=== PATIENT | female | born 1970 | race Caucasian/White ===

== ENCOUNTER → 2017-03-23 | Outpatient (CLI) | payer OTHER ==
[~2017-03-23] MED LIST: ASPI81TA21 PO; ATOR-26 PO; CHOL100010 PO; CHOLCAP10 PO; CLOP1TAB15 PO; EFFSR150 PO; HALO10TA17 PO; HYDR100C PO; LEVO25TA5 PO; LEVOIUD INT UTER; LISI-729 PO; METO25TA56 PO; NITR0.4S UT; NRN100 PO; QUET1TAB32 PO; QUET1TAB34 PO; RANI150T3 PO; TRAZ100T29 PO
[2017-03-23 14:42] LABS: BASO % 0.3 %; BASO ABS # 0.02 K/uL (0-0.2); COMPLETE YES; EOS % 1.6 %; HEMATOCRIT 42.1 % (37-47); IG% 0.2 %; LYMPH % 31.2 %; LYMPH ABS # 1.94 K/uL (1.2-3.4); MEAN CELL VOLUME 87.7 fL (80-100); MEAN CORPUSCULAR HEMOGLOBIN 30.4 pg (25-34); MEAN CORPUSCULAR HGB CONC 34.7 g/dl (32-36); MEAN PLATELET VOLUME 11.8 fL (7.4-10.4); MONO % 10.5 %; NEUT % 56.2 %; PLATELET COUNT 245 K/uL (130-400); WHITE BLOOD COUNT 6.21 K/uL (4.8-10.8)
[2017-03-23 16:18] LABS: ALT/SGPT 32 U/L (12-78); AST/SGOT 18 U/L (15-37); BLOOD UREA NITROGEN 10 mg/dl (7-18); BUN/CREATININE RATIO 13.1 (10-20); CARBON DIOXIDE 25 mmol/L (21-32); CHLORIDE 110 mmol/L (98-107); CREATININE 0.77 mg/dl (0.60-1.20); GLUCOSE 104 mg/dl (70-99); POTASSIUM 3.9 mmol/L (3.5-5.1); SODIUM 143 mmol/L (136-145)
[2017-03-23 16:37] LABS: ALKALINE PHOSPHATASE 118 U/L (45-117); CHOLESTEROL 141 mg/dl (0-200); CHOLESTEROL/HDL RATIO 3.4; HDL CHOLESTEROL 42 mg/dl; LDL CHOLESTEROL CALCULATED 51 mg/dl; THYROID STIMULATING HORMONE 0.614 uIu/ml (0.300-4.500); TRIGLYCERIDES 240 mg/dl (0-150); VERY LOW DENSITY LIPOPROT CALC 48 mg/dl
== END | disposition home or self-care (01) ==
LOC: C.LAB1850 13:03
PROVIDERS: ATTEND Internal Medicine
DX: I67.82 Cerebral ischemia (principal); E55.9 Vitamin D deficiency, unspecified; E03.9 Hypothyroidism, unspecified; E78.5 Hyperlipidemia, unspecified

== ENCOUNTER → 2017-03-25 | Outpatient (CLI) | payer OTHER ==
--- NOTE | 2017-03-25 09:38 | DIAGNOSTIC IMAGING REPORT ---
LEFT HIP UNILATERAL 2 VIEWS CLINICAL HISTORY: R10.30 Left groin pain COMPARISON: None. DISCUSSION: There are moderate osteophytic changes with superior joint space narrowing. There is a small femoral head osteophyte. There are no acute fractures. No destructive lesions are visualized. IMPRESSION: Moderate osteoarthritic changes. No acute fractures. Electronically signed by: Matty Austin M.D. 03/25/2017 9:37 AM Dictated Date/Time: 03/25/2017 9:35 AM
== END | disposition home or self-care (01) ==
LOC: C.RAD1850 09:22
PROVIDERS: ATTEND Internal Medicine
DX: R10.30 Lower abdominal pain, unspecified (principal); M16.12 Unilateral primary osteoarthritis, left hip

== ENCOUNTER → 2017-03-31 | Outpatient (CLI) | payer OTHER ==
--- NOTE | 2017-03-31 11:38 | DIAGNOSTIC IMAGING REPORT ---
LEFT INGUINAL ULTRASOUND CLINICAL HISTORY: R10.32 Left groin [id number] COMPARISON STUDY: No previous studies for comparison. FINDINGS: Ultrasonographic evaluation the left inguinal region reveals no evidence of hernia. IMPRESSION: No ultrasonographic evidence of a left groin hernia. Electronically signed by: Matty Austin M.D. 03/31/2017 11:37 AM Dictated Date/Time: 03/31/2017 11:36 AM
== END | disposition home or self-care (01) ==
LOC: C.ULTR 10:59
PROVIDERS: ATTEND Internal Medicine
DX: R10.32 Left lower quadrant pain (principal)

== ENCOUNTER 2017-06-08 10:39 | Emergency (ER) | payer OTHER ==
[~2017-06-08] VITALS: Ht 170.2 cm; Wt 97.2 kg
[~2017-06-08 10:39] MED LIST changes: -CHOLCAP10 PO
[2017-06-08 10:47] VITALS: TEMP 36.9; Ht 170.2 cm; Wt 97.2 kg
[2017-06-08] MEDS ORDERED: CHOLCAP10 PO (11:07)
[2017-06-08 11:19] LABS: URINE APPEARANCE CLEAR (CLEAR); URINE BILIRUBIN NEG (NEG); URINE COLOR YELLOW; URINE NITRITE NEG (NEG); URINE PH 6.5 (4.5-7.5); URINE SPECIFIC GRAVITY 1.007 (1.000-1.030); UROBILINOGEN NEG (NEG); ZZUR CULT IF INDIC CLEAN CATCH NO
[2017-06-08 11:22] LABS: MANUAL MICROSCOPIC REQUIRED? NO; REVIEW REQ? NO
[2017-06-08 11:27] LABS: PREG INTERNAL NEGATIVE QC NEG CLEAR BACKGROUND; PREG INTERNAL POSITIVE QC POS CONTROL LINE
[2017-06-08 11:46] LABS: BASO % 0.2 %; BASO ABS # 0.02 K/uL (0-0.2); COMPLETE YES; EOS % 1.4 %; HEMATOCRIT 40.4 % (37-47); IG% 0.3 %; LYMPH % 17.1 %; LYMPH ABS # 1.71 K/uL (1.2-3.4); MEAN CORPUSCULAR HEMOGLOBIN 29.8 pg (25-34); MEAN CORPUSCULAR HGB CONC 33.9 g/dl (32-36); MEAN PLATELET VOLUME 10.7 fL (7.4-10.4); MONO % 7.7 %; NEUT % 73.3 %; PLATELET COUNT 283 K/uL (130-400); RED BLOOD COUNT 4.59 M/uL (4.2-5.4); WHITE BLOOD COUNT 9.98 K/uL (4.8-10.8)
[2017-06-08 11:52] LABS: BENZODIAZEPINE, URINE NEG (NEG); COCAINE,URINE NEG (NEG); PHENCYCLIDINE, URINE NEG (NEG)
[2017-06-08 12:06] LABS: BUN/CREATININE RATIO 11.2 (10-20); CALCIUM 9.2 mg/dl (8.5-10.1); CREATININE 0.81 mg/dl (0.60-1.20); POTASSIUM 3.5 mmol/L (3.5-5.1)
[2017-06-08 12:15] LABS: ACETAMINOPHEN < 2 ug/ml (10-30)
[2017-06-08 12:17] LABS: THYROID STIMULATING HORMONE 1.69 uIu/ml (0.300-4.500)
[2017-06-08 13:36] VITALS: BP 145/99; PULSE 86; O2SAT 95
--- NOTE | 2017-06-08 17:10 | EMERGENCY ROOM VISIT NOTE ---
History Report prepared by Catarina: Alice Thompson Under the Supervision of: Dr. Rick Barr M.D. First contact with patient: 11:21 Chief Complaint: ANXIETY Stated Complaint: OVER ANXIOUS History of Present Illness The patient is a 47 year old female who presents to the Emergency Room with complaints of worsening anxiety for the past couple of weeks. The patient has a history of anxiety and other mental health issues. She sees a psychiatrist and is on multiple medications for her anxiety. The patient states that she recently started Benztropine. She states that she used to be prescribed Ativan but is no longer prescribed that drug. She has been taking her medications as prescribed and took her usual medications this morning.. The patient states that she is feeling "over-anxious." Her anxiety is starting to overwhelm her, and she feels that she can't stay still. She denies SI or HI. She did not contact her psychiatrist with her symptoms because she states that she can never get through to their office. She is requesting Ativan. Source of History: patient Onset: a couple of weeks ago Position: other (global) Quality: other (anxiety) Timing: worsening Note: Pt denies SI and HI. Review of Systems See HPI for pertinent positives & negatives. A total of 10 systems reviewed and were otherwise negative. Past Medical & Surgical Medical Problems: (1) Cellulitis (2) Chronic back pain (3) Esophageal Reflux (4) Hyperlipidemia Nec/Nos (5) MO (myocardial infarction) (6) Pure Hypercholesterolem (7) TIA Family History FH: pancreatic cancer FATHER Social History Smoking Status: Current Every Day Smoker Alcohol Use: heavy Drug Use: none Marital Status: single Occupation Status: unemployed Current/Historical Medications Scheduled Aspirin Enteric Coated (Ecotrin Or Generic), 81 MG PO DAILY Atorvastatin (Lipitor), 80 MG PO HS Cholecalciferol (D 5000), 5,000 UNITS PO DAILY Clopidogrel (Plavix), 75 MG PO QAM Gabapentin (Gabapentin), 100 MG PO TID Haloperidol (Haldol), 10 MG PO BID Hydroxyzine Pamoate (Vistaril), 200 MG PO BID Levonorgestrel (Iud) (Mirena), 1 UNIT INT UTER UD Levothyroxine Sodium (Levothyroxine Sodium), 25 MCG PO QAM Lisinopril (Zestril), 5 MG PO QAM Metoprolol Tartrate (Lopressor) (Lopressor), 12.5 MG PO BID Nitroglycerin (Nitrostat), 0.4 MG UT PRN Ranitidine Hcl (Zantac), 150 MG PO BID Trazodone Hcl (Trazodone), 100 MG PO HS Venlafaxine Hcl (Effexor Extended Rel), 150 MG PO DAILY Allergies Coded Allergies: No Known Allergies (Verified , 06/08/17) Physical Exam Vital Signs Date Time Temp Pulse Resp B/P (MAP) Pulse Ox O2 Delivery O2 Flow Rate FiO2 06/08/17 13:36 86 145/99 95 06/08/17 12:32 73 158/94 99 Room Air 06/08/17 10:47 36.9 76 20 143/89 96 Room Air Physical Exam Constitutional: Vital signs reviewed. Eyes: Pupils are equal round reactive to light. Conjunctiva are noninjected. ENT: Pharynx is clear without erythema or exudate. Mucous membranes are moist. Neck supple without meningeal signs. Respiratory: Clear to auscultation bilaterally. Breath sounds are equal bilaterally. Cardiovascular: Regular rate and rhythm. No rubs or gallops. GI: Soft, nondistended and nontender. Bowel sounds are present. Musculoskeletal: No peripheral edema. No lower extremity tenderness. Integumentary: No cyanosis. Neurological: The patient is awake and alert. No focal deficits. Psychiatric: Flat affect. Not tearful or manic. Medical Decision & Procedures Laboratory Results 06/08/17 11:22 Red Blood Count 4.59, Mean Corpuscular Volume 88.0, Mean Corpuscular Hemoglobin 29.8, Mean Corpuscular Hemoglobin Concent 33.9, Mean Platelet Volume 10.7, Neutrophils (%) (Auto) 73.3, Lymphocytes (%) (Auto) 17.1, Monocytes (%) (Auto) 7.7, Eosinophils (%) (Auto) 1.4, Basophils (%) (Auto) 0.2, Neutrophils # (Auto) 7.31, Lymphocytes # (Auto) 1.71, Monocytes # (Auto) 0.77, Eosinophils # (Auto) 0.14, Basophils # (Auto) 0.02 06/08/17 11:22 Test 06/08/17 11:05 06/08/17 11:22 Urine Color YELLOW Urine Appearance CLEAR (CLEAR) Urine pH 6.5 (4.5-7.5) Urine Specific [place] 1.007 (1.000-1.030) Urine Protein NEG (NEG) Urine Glucose (UA) NEG (NEG) Urine Ketones NEG (NEG) Urine Occult Blood NEG (NEG) Urine Nitrite NEG (NEG) Urine Bilirubin NEG (NEG) Urine Urobilinogen NEG (NEG) Urine Leukocyte Esterase NEG (NEG) Urine Test NEG (NEG) Urine Opiates Screen NEG (NEG) Urine Methadone, Qualitative NEG (NEG) Urine Barbiturates NEG (NEG) Urine Phencyclidine (PCP) Level NEG (NEG) Ur Amphetamine/Methamphetamine NEG (NEG) MDMA (Ecstasy) Screen POS (NEG) Urine Benzodiazepines Screen NEG (NEG) Urine Cocaine Metabolite NEG (NEG) Urine Marijuana (THC) NEG (NEG) White Blood Count 9.98 K/uL (4.8-10.8) Red Blood Count 4.59 M/uL (4.2-5.4) Hemoglobin 13.7 g/dL (12.0-16.0) Hematocrit 40.4 % (37-47) Mean Corpuscular Volume 88.0 fL (80-100) Mean Corpuscular Hemoglobin 29.8 pg (25-34) Mean Corpuscular Hemoglobin Concent 33.9 g/dl (32-36) Platelet Count 283 K/uL (130-400) Mean Platelet Volume 10.7 fL (7.4-10.4) Neutrophils (%) (Auto) 73.3 % Lymphocytes (%) (Auto) 17.1 % Monocytes (%) (Auto) 7.7 % Eosinophils (%) (Auto) 1.4 % Basophils (%) (Auto) 0.2 % Neutrophils # (Auto) 7.31 K/uL (1.4-6.5) Lymphocytes # (Auto) 1.71 K/uL (1.2-3.4) Monocytes # (Auto) 0.77 K/uL (0.11-0.59) Eosinophils # (Auto) 0.14 K/uL (0-0.5) Basophils # (Auto) 0.02 K/uL (0-0.2) RDW Standard Deviation 47.5 fL (36.4-46.3) RDW Coefficient of Variation 14.7 % (11.5-14.5) Immature Granulocyte % (Auto) 0.3 % Immature Granulocyte # (Auto) 0.03 K/uL (0.00-0.02) Anion Gap 6.0 mmol/L (3-11) Est Creatinine Clear Calc Drug Dose 102.8 ml/min Estimated GFR () 100.2 Estimated GFR (Non- 86.5 BUN/Creatinine Ratio 11.2 (10-20) Calcium Level 9.2 mg/dl (8.5-10.1) Total Bilirubin 0.7 mg/dl (0.2-1) Aspartate Amino Transf (AST/SGOT) 28 U/L (15-37) Alanine Aminotransferase (ALT/SGPT) 42 U/L (12-78) Alkaline Phosphatase 136 U/L (45-117) Total Protein 7.5 gm/dl (6.4-8.2) Albumin 3.7 gm/dl (3.4-5.0) Globulin 3.8 gm/dl (2.5-4.0) Albumin/Globulin Ratio 1.0 (0.9-2) Thyroid Stimulating Hormone (TSH) 1.690 uIu/ml (0.300-4.500) Salicylates Level 2.5 mg/dl (2.8-20) Acetaminophen Level < 2 ug/ml (10-30) Ethyl Alcohol mg/dL < 3.0 mg/dl (0-3) Laboratory results as reviewed by me. ED Course 1121: The patient was evaluated in room A5. A complete history and physical exam was performed. 1223: I reviewed the lab test results with the patient. The family independence case manager is going to talk to her therapist about further outpatient treatment and medications, which I discussed with the patient as well. She expressed understanding and verbalized agreement. The patient will be discharged home. 1240: The family independence case manager left a message with the patient's therapist. 1321: I spoke with Dr. Arias, the patient's therapist at [facility]. We discussed the patient's case. She agreed with the treatment plan. She does not want the patient to be placed on any new medications, especially benzodiazepines, as she has a history of inhalation abuse. She will follow-up in the office. Medical Decision This is a 47-year-old female who presents with anxiety. I did perform a limited focused review of portions of the patient's old chart on the electronic medical record. The patient has had no recent pertinent visits to this hospital. I did evaluate the patient as noted above. The patient is presenting with worsening anxiety. She does not appear overly anxious while in the emergency department. She does have a flat affect. She does state that Ativan seemed to help her. I did review the patient's blood work as noted in the electronic medical record. I did discuss the patient with her psychiatrist at [facility]. She recommended we not prescribe her Ativan or any benzodiazepines at this time. She recommended outpatient follow up for the patient. She does state that the patient has a history of inhalational abuse and developed psychosis and required Haldol because of this abuse in the past. The patient was informed of the plan and discharged in good condition. [place] Drug Monitoring Program Search Results: patient reviewed within database Drug Monitoring Findings: Pt could not be found in PDMP. Medication Reconcilliation Current Medication List: was personally reviewed by me Blood Pressure Screening Patient's blood pressure: Elevated blood pressure Blood pressure disposition: Referred to PCP Consults Time Called: 1240 Consulting Physician: Dr. Manuel Returned Call: [address] Arias, the patient's therapist at [facility]. We discussed the patient's case. She agreed with the treatment plan. She does not want the patient to be placed on any new medications, especially benzodiazepines, as she has a history of inhalation abuse. She will follow-up in the office. Impression Primary Impression: Anxiety Scribe Attestation The scribe's documentation has been prepared under my direct and personally reviewed by me in its entirety. I confirm that the note above accurately reflects all work, treatment, procedures, and medical decision making performed by me. Departure Information Dispostion Home / Self-Care Referrals No Doctor, Assigned (PCP) RV. Robb MD Forms HOME CARE DOCUMENTATION FORM, IMPORTANT VISIT INFORMATION Patient Instructions Anxiety Disorder, My [facility] Additional Instructions You have been examined and treated today on an emergency basis only. This is not a substitute for, or an effort to provide, complete comprehensive medical care. It is impossible to recognize and treat all injuries or illnesses in a single emergency department visit. It is therefore important that you follow up closely with your physician. Call as soon as possible for an appointment. Return for worsening symptoms or if you develop thoughts of hurting yourself or others or any other concerning symptoms.
== END 2017-06-08 13:41 | disposition home or self-care (01) ==
LOC: C.EDB 10:41 → C.EDA 13:41
DX: F41.9 Anxiety disorder, unspecified (principal); K21.9 Gastro-esophageal reflux disease without esophagitis; E78.5 Hyperlipidemia, unspecified; I25.2 Old myocardial infarction; E78.00 Pure hypercholesterolemia, unspecified; Z86.73 Personal history of transient ischemic attack (TIA), and cerebral infarction without residual deficits; Z80.9 Family history of malignant neoplasm, unspecified; F17.210 Nicotine dependence, cigarettes, uncomplicated; Z79.82 Long term (current) use of aspirin; Z79.02 Long term (current) use of antithrombotics/antiplatelets; Z79.899 Other long term (current) drug therapy

== ENCOUNTER → 2017-06-28 | Outpatient (CLI) | payer OTHER ==
[~2017-06-28] MED LIST changes: -CHOL100010 PO; +CHOLCAP10 PO; -QUET1TAB32 PO; -QUET1TAB34 PO
== END | disposition home or self-care (01) ==
LOC: C.PAPS 13:34
PROVIDERS: ATTEND Physician Assistant
DX: Z12.4 Encounter for screening for malignant neoplasm of cervix (principal); Z11.51 Encounter for screening for human papillomavirus (HPV); Z97.5 Presence of (intrauterine) contraceptive device

== ENCOUNTER → 2017-07-04 | Outpatient (CLI) | payer OTHER ==
[2017-07-04 11:18] LABS: PREG INTERNAL NEGATIVE QC NEG CLEAR BACKGROUND; PREG INTERNAL POSITIVE QC POS CONTROL LINE
[2017-07-07 02:02] LABS: CHLAMYDIA TRACH RNA*** NOT DETECTED (NOT DETECTED); GC (NEIS GONORRHOEAE)RNA** NOT DETECTED (NOT DETECTED)
== END | disposition home or self-care (01) ==
LOC: C.LAB 10:07
PROVIDERS: ATTEND Physician Assistant
DX: Z30.430 Encounter for insertion of intrauterine contraceptive device (principal)

== ENCOUNTER → 2017-08-02 | Outpatient (CLI) | payer OTHER ==
--- NOTE | 2017-08-03 07:56 | MAMMOGRAPHY REPORT ---
BILATERAL DIGITAL SCREENING MAMMOGRAM TOMOSYNTHESIS WITH CAD: 08/02/2017 CLINICAL HISTORY: Routine screening examination. TECHNIQUE: Breast tomosynthesis in addition to standard 2D mammography was performed. Current study was also evaluated with a Computer Aided Detection (CAD) system. COMPARISON: Comparison is made to exam dated: 03/28/2013 mammogram - [facility]. BREAST COMPOSITION: The tissue of both breasts is almost entirely fatty. There have been involution al changes comparing to the prior available mammograms. FINDINGS: No suspicious mass, architectural distortion or cluster of suspicious microcalcifications is seen. IMPRESSION: ACR BI-RADS CATEGORY 1: NEGATIVE There is no mammographic evidence of malignancy. A 1 year screening mammogram is recommended. The pa tient will receive written notification of the results. Approximately 10% of breast cancers are not detected with mammography. A negative mammographic report should not delay biopsy if a clinically suggestive mass is present. Jennifer English M.D. ay/:08/02/2017 15:44:06 Refrigeration Plant Operator: Katie THIBODEAUX(Al)(Zach), [facility] letter sent: Normal 1/2 BI-RADS Code: ACR BI-RADS Category 1: Negative
== END | disposition home or self-care (01) ==
LOC: C.MAMM 10:56
PROVIDERS: ATTEND Physician Assistant
DX: Z12.31 Encounter for screening mammogram for malignant neoplasm of breast (principal)

== ENCOUNTER 2019-01-08 17:39 | Observation (INO) ==
[2019-01-08 18:28] LABS: Basophils # (auto) 0.02 K/uL (0-0.2); Basophils % (auto) 0.3 %; Eosinophils # (auto) 0.14 K/uL (0-0.5); Eosinophils % (auto) 1.9 %; Hematocrit (blood only) 43.9 % (37-47); Hemoglobin 15.2 g/dL (12.0-16.0); Immature Granulocytes # (auto) 0.01 K/uL (0.00-0.02); Immature Granulocytes % (auto) 0.1 %; Lymphocytes % (auto) 45.3 %; Mean Corpuscular Hgb Conc 34.6 g/dL (32-36); Mean Corpuscular Volume 82.5 fL (80-100); Mean Platelet Volume 10.3 fL (7.4-10.4); Monocytes # (auto) 0.62 K/uL (0.11-0.59); Monocytes % (auto) 8.5 %; Neutrophils % (auto) 43.9 %; Platelet Count 331 K/uL (130-400); RDW Coefficient of Variation 16.4 % (11.5-14.5); RDW Standard Deviation 49.7 fL (36.4-46.3); Red Blood Count 5.32 M/uL (4.2-5.4); White Blood Count 7.29 K/uL (4.8-10.8)
--- NOTE | 2019-01-08 18:29 | XRay Report ---
SINGLE VIEW CHEST CLINICAL HISTORY: Atypical chest pain. FINDINGS: An AP, portable, semierect chest radiograph is compared to study dated 07/12/2016. Correlati on is made with chest CT dated 02/19/2010. The examination is degraded by portable technique, apical l ordotic positioning, and patient rotation. The cardiomediastinal silhouette is unremarkable. Calcifi ed mediastinal and hilar lymph nodes are again noted. The lungs and pleural spaces are clear. No pneu mothorax is seen. The bony thorax is grossly intact. IMPRESSION: No active disease in the chest. Electronically signed by: Roman Longo M.D. 01/08/2019 6:27 PM
[2019-01-08 18:37] LABS: Prothrombin Time 10.6 Seconds (9.0-12.0)
--- NOTE | 2019-01-08 18:46 | CT Scan Report ---
CT SCAN OF THE BRAIN WITHOUT IV CONTRAST CLINICAL HISTORY: Transient right-sided weakness. COMPARISON STUDY: CT of the brain dated 06/24/2014. TECHNIQUE: Unenhanced axial CT scan of the brain is performed from the vertex to the skull base. A d ose lowering technique was utilized adhering to the principles of ALARA. CT DOSE: 537.48 mGy.cm FINDINGS: Brain parenchyma: The brain parenchyma is normal in appearance. There is no hemorrhage, mass effect, or evidence of acute territorial ischemia by CT criteria. [place]-white matter differentiation is preser anisa. No extra-axial fluid collection is seen. Ventricles, sulci, cisterns: Normal in configuration. Intracranial vasculature: The visualized intracranial vasculature at the skull base is normal in appe arance. Calvarium: Unremarkable. Sinuses and mastoids: The visualized paranasal sinuses are clear. The mastoid air cells are well pneu matized. Orbits: The bony orbits are grossly intact. IMPRESSION: No acute intracranial abnormality. Electronically signed by: Roman Longo M.D. 01/08/2019 6:45 PM
[2019-01-08 18:57] LABS: Alanine Aminotransferase 26 U/L (12-78); Albumin Level 3.4 gm/dl (3.4-5.0); Aspartate Aminotransferase 16 U/L (15-37); Blood Urea Nitrogen 10 mg/dl (7-18); Calcium 8.4 mg/dl (8.5-10.1); Carbon Dioxide 29 mmol/L (21-32); Chloride 111 mmol/L (98-107); Creatinine Clr Calc Pharmacy 96.6 ml/min; Est GFR (Non-African American) 87.2; Glucose 91 mg/dl (70-99); Potassium 4.3 mmol/L (3.5-5.1); Sodium 145 mmol/L (136-145)
[2019-01-08] MEDS ORDERED: KETOROLAC TROMETHAMINE 15 MG/ML VIAL IV STA (19:01)
[2019-01-08 19:02] LABS: Albumin Globulin Ratio 0.9 (0.9-2); Alkaline Phosphatase 109 U/L (45-117); Bilirubin,Total 0.3 mg/dl (0.2-1); Globulin 3.7 gm/dl (2.5-4.0); Total Protein 7.1 gm/dl (6.4-8.2); Troponin I < 0.015 ng/ml (0-0.045)
[2019-01-08] MEDS ORDERED: MoRPHine SULFATE 2 MG/ML CARP IV STA (19:20)
--- NOTE | 2019-01-08 19:24 | Emergency Department Note ---
Entered by Dat Calhoun acting as a scribe for Kapil Ramirez M.D. History of Present Illness General Chief complaint: Cardiac Assessment Stated complaint: CHEST PAIN Source: patient History of Present Illness Onset (ago): hour(s) (a couple) Location: chest and right (leg and arm) Pain Consistency: + constant Maximum Pain Intensity: 10 Current Pain Intensity: 4 Quality: + other (central chest pain) Associated symptoms: + weakness (right arm and leg for 45 minutes, now resolved); no headaches and no nausea/vomiting Treatments prior to arrival: aspirin (and nitro) The patient is a 48 year old female who presents to the Emergency Room with complaints of constant pain in the center of her chest beginning a couple of hours ago. The patient reports that the pain woke her from her sleep and was 10/10 at the onset. She reports that she experienced weakness of her right arm and right leg for about 45 minutes that is currently resolved. She notes that she still had the weakness upon EMS arrival. The patient states that she took 5 nitro prior to arrival, and she was given aspirin by EMS. She reports that her pain is currently improved to 4/10. She states that she temporarily had difficulty speaking from the right side of the mouth but denies difficulty swallowing. She also denies nausea or headaches. She notes that she was asymptomatic yesterday. The patient reports a history of several strokes and heart attacks, most recently 3-4 years ago. She states that her most recent stroke affected her left side. The patient reports that she decided to stop taking all of her medications for the past six months, including aspirin and blood thinners. She also states that she has not seen her PCP for at least six months. She states that she regularly smokes. 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 and A total of 10 systems reviewed and were otherwise negative Physical Exam Vital Signs Vital Signs - 24 hr 01/08/19 17:50 01/08/19 20:11 01/08/19 20:46 Temperature 36.9 C Temperature Source Oral Sepsis Recent Fever Within 48 Hours No Sepsis Action Taken by Nursing No Action Required Pulse Rate 90 Pulse Rate [Right Finger] 84 Pulse Rhythm Regular Pulse Strength Normal Respiratory Rate 17 14 Respiratory Effort / Characteristics Non-Labored Non-Labored Spontaneous Respiratory Depth Normal Normal Respiratory Pattern Regular Regular Rapid/Shallow Tachypnea Blood Pressure 109/59 L Blood Pressure [Right Arm] 134/88 Blood Pressure Mean 75 Blood Pressure Mean [Right Arm] 103 Blood Pressure Position Lying Blood Pressure Position [Right Arm] Lying Pulse Oximetry 96 97 Oxygen Delivery Method Room Air Room Air 01/08/19 21:00 01/08/19 21:12 Temperature Temperature Source Sepsis Recent Fever Within 48 Hours Sepsis Action Taken by Nursing Pulse Rate 87 Pulse Rate [Right Finger] 85 Pulse Rhythm Pulse Strength Respiratory Rate 19 19 Respiratory Effort / Characteristics Respiratory Depth Respiratory Pattern Blood Pressure 131/83 Blood Pressure [Right Arm] 131/83 Blood Pressure Mean Blood Pressure Mean [Right Arm] 99 Blood Pressure Position Blood Pressure Position [Right Arm] Pulse Oximetry 99 98 Oxygen Delivery Method Room Air GENERAL: Awake, alert, in no distress HENT: Normocephalic, atraumatic. EYES: Normal conjunctiva. Sclera non-icteric. NECK: Supple. No nuchal rigidity. RESPIRATORY: Clear to auscultation. No wheezes. Normal respiratory effort. CARDIAC: Normal rate. Normal rhythm. Extremities warm and well perfused. GI: Soft, non-distended. No tenderness to palpation. No rebound or guarding. No masses. RECTAL: Deferred. MUSCULOSKELETAL: Atraumatic. Chest examination reveals no tenderness. There is no CVA tenderness to palpation. LOWER EXTREMITIES: Calves are equal size bilaterally and non-tender. No edema NEURO: Normal sensorium. No sensory or motor deficits noted. No facial droop. No slurred speech. Cranial nerves II-XII grossly intact. SKIN: Warm and dry. No rash or jaundice noted. Course 1751: The patient was evaluated in room C10, and a complete history and physical examination were performed. 193: I consulted Dr. Champion [facility] Hospitalist. The patient will be reevaluated for hospitalization. Consultations Consultation #1: I consulted Dr. Champion [facility] Hospitalist. The patient will be reevaluated for hospitalization. Time: 19:30 Administered Medications Discontinued Medications Ketorolac Tromethamine (Toradol) 15 mg IV NOW STA Stop: 01/08/19 19:02 Last Admin: 01/08/19 19:08 Dose: 15 mg Documented by: [id number] Morphine Sulfate (Morphine Sulfate) 2 mg IV NOW STA Stop: 01/08/19 19:21 Last Admin: 01/08/19 19:33 Dose: 2 mg Documented by: [id number] Medical Decision Making Differential Diagnosis Differential diagnosis: Etiologies such as metabolic, infection, hypo/hyperglycemia, electrolyte abnormalities, intracerebral event, toxicologic, neurologic, cardiac ischemia, aortic dissection, pulmonary embolism, pneumonia, pneumothorax, musculoskeletal, infections, pericarditis, myocarditis, esophageal rupture, gastrointestinal, as well as others were entertained. Medical Records Attestation: I reviewed the patient's medical records. Home Medications Current Medication List: was personally reviewed by me Laboratory Data Attestation: I reviewed the patient's lab results. Result diagrams: 01/08/19 17:57 01/08/19 17:57 Lab Results 01/08/19 01/08/19 01/08/19 Range/Units 17:57 17:57 17:57 WBC 7.29 (4.8-10.8) K/uL RBC 5.32 (4.2-5.4) M/uL Hgb 15.2 (12.0-16.0) g/dL Hct 43.9 (37-47) % MCV 82.5 (80-100) fL MCH 28.6 (25-34) pg MCHC 34.6 (32-36) g/dL RDW Std Deviation 49.7 H (36.4-46.3) fL RDW Coeff of [place]oke 16.4 H (11.5-14.5) % Plt Count 331 (130-400) K/uL MPV 10.3 (7.4-10.4) fL Immature Gran % (Auto) 0.1 % Neut % (Auto) 43.9 % Lymph % (Auto) 45.3 % [place] % (Auto) 8.5 % Eos % (Auto) 1.9 % Baso % (Auto) 0.3 % Immature Gran # (Auto) 0.01 (0.00-0.02) K/uL Neut # (Auto) 3.20 (1.4-6.5) K/uL Lymph # (Auto) 3.30 (1.2-3.4) K/uL [place] # (Auto) 0.62 H (0.11-0.59) K/uL Eos # (Auto) 0.14 (0-0.5) K/uL Baso # (Auto) 0.02 (0-0.2) K/uL PT 10.6 (9.0-12.0) Seconds INR 1.0 (0.9-1.1) Sodium 145 (136-145) mmol/L Potassium 4.3 (3.5-5.1) mmol/L Chloride 111 H (98-107) mmol/L Carbon Dioxide 29 (21-32) mmol/L Anion Gap 5.0 (3-11) BUN 10 (7-18) mg/dl Creatinine 0.80 (0.6-1.2) mg/dl Est Cr Clr Drug Dosing 96.6 ml/min Est GFR ( Amer) 101.0 Est GFR (Non-Af Amer) 87.2 BUN/Creatinine Ratio 13.0 (10-20) Glucose 91 (70-99) mg/dl Calcium 8.4 L (8.5-10.1) mg/dl Total Bilirubin 0.3 (0.2-1) mg/dl AST 16 (15-37) U/L ALT 26 (12-78) U/L Alkaline Phosphatase 109 (45-117) U/L POC Troponin I (0-0.045) ng/ml Troponin I < 0.015 (0-0.045) ng/ml Total Protein 7.1 (6.4-8.2) gm/dl Albumin 3.4 (3.4-5.0) gm/dl Globulin 3.7 (2.5-4.0) gm/dl Albumin/Globulin Ratio 0.9 (0.9-2) Lipase 113 (73-393) U/L Ethyl Alcohol mg/dL (0-3) mg/dl 01/08/19 01/08/19 Range/Units 18:19 21:09 WBC (4.8-10.8) K/uL RBC (4.2-5.4) M/uL Hgb (12.0-16.0) g/dL Hct (37-47) % MCV (80-100) fL MCH (25-34) pg MCHC (32-36) g/dL RDW Std Deviation (36.4-46.3) fL RDW Coeff of Brooke (11.5-14.5) % Plt Count (130-400) K/uL MPV (7.4-10.4) fL Immature Gran % (Auto) % Neut % (Auto) % Lymph % (Auto) % [place] % (Auto) % Eos % (Auto) % Baso % (Auto) % Immature Gran # (Auto) (0.00-0.02) K/uL Neut # (Auto) (1.4-6.5) K/uL Lymph # (Auto) (1.2-3.4) K/uL [place] # (Auto) (0.11-0.59) K/uL Eos # (Auto) (0-0.5) K/uL Baso # (Auto) (0-0.2) K/uL PT (9.0-12.0) Seconds INR (0.9-1.1) Sodium (136-145) mmol/L Potassium (3.5-5.1) mmol/L Chloride (98-107) mmol/L Carbon Dioxide (21-32) mmol/L Anion Gap (3-11) BUN (7-18) mg/dl Creatinine (0.6-1.2) mg/dl Est Cr Clr Drug Dosing ml/min Est GFR ( Amer) Est GFR (Non-Af Amer) BUN/Creatinine Ratio (10-20) Glucose (70-99) mg/dl Calcium (8.5-10.1) mg/dl Total Bilirubin (0.2-1) mg/dl AST (15-37) U/L ALT (12-78) U/L Alkaline Phosphatase (45-117) U/L POC Troponin I < 0.03 (0-0.045) ng/ml Troponin I (0-0.045) ng/ml Total Protein (6.4-8.2) gm/dl Albumin (3.4-5.0) gm/dl Globulin (2.5-4.0) gm/dl Albumin/Globulin Ratio (0.9-2) Lipase (73-393) U/L Ethyl Alcohol mg/dL 124.4 H (0-3) mg/dl Imaging Data Radiologist's Impression: Radiology results as stated below per my review and the radiologist's interpretation: SINGLE VIEW CHEST CLINICAL HISTORY: Atypical chest pain. FINDINGS: An AP, portable, semierect chest radiograph is compared to study dated 07/12/2016. Correlation is made with chest CT dated 02/19/2010. The examination is degraded by portable technique, apical lordotic positioning, and patient rotation. The cardiomediastinal silhouette is unremarkable. Calcified mediastinal and hilar lymph nodes are again noted. The lungs and pleural spaces are clear. No pneumothorax is seen. The bony thorax is grossly intact. IMPRESSION: No active disease in the chest. Electronically signed by: Roman Longo M.D. 01/08/2019 6:[address] SCAN OF THE BRAIN WITHOUT IV CONTRAST CLINICAL HISTORY: Transient right-sided weakness. COMPARISON STUDY: CT of the brain dated 06/24/2014. TECHNIQUE: Unenhanced axial CT scan of the brain is performed from the vertex to the skull base. A dose lowering technique was utilized adhering to the principles of ALARA. CT DOSE: 537.48 mGy.cm FINDINGS: Brain parenchyma: The brain parenchyma is normal in appearance. There is no hemorrhage, mass effect, or evidence of acute territorial ischemia by CT criteria. [place]-white matter differentiation is preserved. No extra-axial fluid collection is seen. Ventricles, sulci, cisterns: Normal in configuration. Intracranial vasculature: The visualized intracranial vasculature at the skull base is normal in appearance. Calvarium: Unremarkable. Sinuses and mastoids: The visualized paranasal sinuses are clear. The mastoid air cells are well pneumatized. Orbits: The bony orbits are grossly intact. IMPRESSION: No acute intracranial abnormality. Electronically signed by: Roman Longo M.D. 01/08/2019 6:45 PM ECG Data Attestation: I personally reviewed and interpreted this ECG as follows: Indication: chest pain Rate (beats per minute): 100 Rhythm: normal sinus Findings: + other (prolonged QT interval); no PVC, no ST depression and no ST elevation Blood Pressure Blood Pressure Findings: Normal blood pressure Blood Pressure Disposition: did not require urgent referral MDM Narrative 48-year-old female with history of anxiety, cardiac disease, hyperlipidemia, TIA presenting today complaining of waking up 2 hours hours prior to arrival with severe central chest pain. States took 3 nitroglycerin with no improvement. Nonexertional. States after that she developed 45 minutes of right-sided numbness and weakness in along with facial droop. Resolved by the time of EMS arrival. States she has a history of stroke and cardiac disease before. Offered medication for 6 months per 2 additional nitroglycerin en route with EMS. No change with this. Although does right chest pain now at 4 out of 10. No trauma reported or recent illnesses. States pain is similar to previous and describes as a pressure. Benign abdomen. Chest x-ray unremarkable. I doubt this is acute PE. Cardiac her troponin is negative. Formal troponin is nega tive as well. EKG without acute changes. Patient's neurological symptoms appear to have resolved at this point but head CT was complete with acute findings. Does have a history of TIA and this could be recurrence. Has been off antiplatelet agents for 6 months could be contributing. Given her si gnificant cardiac history neurological history along with her presentation believe observation overnight is warranted. Patient is still having pain and did not improve with morphine. Hospitalist contacted. Impression & Plan Chest pain, Weakness Discharge Plan Visit Data *Final* Discharge Date/Time: 01/08/19 21:12 Chief Complaint: Cardiac Assessment Stated Complaint: CHEST PAIN ED Provider: Kapil Ramirez Discharge Problem: Chest pain, Weakness Patient Disposition: Admitted As Inpatient Discharge Instructions Interventions: ED Discharge Assessment Last Done: 01/08/19 21:12 Discharge Problem: Chest pain Qualifiers: Chest pain type: unspecified Qualified Code(s): R07.9 - Chest pain, unspecified The scribe's documentation has been prepared under my direction and personally reviewed by me in its entirety. I confirm that the note above accurately reflects all work, treatment, procedures, and medical decision making performed by me.
--- NOTE | 2019-01-08 21:46 | History & Physical Report ---
Date of Service January 08, 2019 Assessment & Plan (1) TIA (transient ischemic attack): History of TIA/previously left-sided weakness that resolved/today's presentation is right-sided weakness and decreased sensation resolved-- CT of head negative for acute event. Follow-up CTA head and neck are normal. MRI brain without contrast is normal. Stroke without TPA order set has been ordered and will follow. Complete echo ordered for the morning. Consult speech, PT, OT. Consult neurology. Symptoms may be due to alcohol use/withdrawal. Present on Admission?: Yes (2) History of stroke: As above. Present on Admission?: Yes (3) Medical non-compliance: Present on Admission?: Yes (4) Alcohol abuse: Place on [facility] protocol. Order alcohol level and urine drug screen. Give banana bag tonight. Place on thiamine 100 mg p.o. every morning, and folic acid 1 mg p.o. every morning. Present on Admission?: Yes (5) Coronary artery disease, occlusive: CAD/history of NSTEMI/hypertension/medical noncompliance-- Patient's previous medication list: Aspirin 81 mg daily, clopidogrel 75 mg every morning, lisinopril 5 mg every morning, metoprolol tartrate 12.5 mg p.o. twice daily, nitroglycerin sublingual as needed. Present on Admission?: Yes (6) Hyperlipidemia LDL goal <70: Patient previously had been on atorvastatin 80 mg p.o. at bedtime. We will check a fasting lipid panel, and reinstitute medications as needed Present on Admission?: Yes (7) GERD (gastroesophageal reflux disease): Patient previously had been on ranitidine 150 mg p.o. twice daily. We will reinstitute as needed once she is cleared speech screening Present on Admission?: Yes (8) Hypothyroidism (acquired): Patient previously had been on levothyroxine sodium 25 mcg every morning. We will add a TSH to current labs and treat as needed. Present on Admission?: Yes (9) Anxiety and depression: Anxiety with depression/medical noncompliance-- Previous medication list includes venlafaxine ER 150 mg p.o. daily, trazodone 100 mg p.o. at bedtime, Seroquel 50 mg in the morning and 150 mg at bedtime, Vistaril 20 mg p.o. twice daily, Haldol 10 mg p.o. twice daily, and gabapentin 100 mg p.o. 3 times daily. Present on Admission?: Yes History of Present Illness Chief Complaint: The patient presents to the emergency department with complaint of chest discomfort and right-sided decreased sensation and weakness after waking up from an afternoon nap at 230 this afternoon. Primary Care Provider: Juan Carlos Martinez MD The patient is a 48-year-old female with a past medical history including diabetes mellitus, cerebrovascular disease, coronary artery disease, STEMI, alcohol abuse and medical noncompliance, who presents to the emergency department with complaint of epigastric to chest pain and right-sided decreased sensation and weakness that occurred around 2:30 in the afternoon after awakening. She does report that she began drinking again, and her last drink was at 3:00 in the morning. She reports that she was awake to have her child off to school, and then went back to sleep. She has had no recent injuries to report. She has not been on any of her medications for 6 months. Allergies Allergy/AdvReac Type Severity Reaction Status Date / Time No Known Allergies Allergy Verified 01/08/19 19:37 Home Medications Home Medications Medication Instructions Recorded Confirmed Type No Known Home Medications 01/08/19 01/08/19 History Past Med/Surg History Medical History History of stroke STEMI (ST elevation myocardial infarction) (Acute) Medical non-compliance (Acute) Family History Other Cancer Diabetes Hypertension Social History Preferred Language: Iraqi Communication Ability: Effective Healthcare Administration Internship Required: No Beliefs That Will Affect Care: None Current Living Situation: Family Current Living Situation Comment: with son Other Information That Helps Us Care for You: No Feels Safe at Home: Yes Safety Concerns: Feels Safe At This Time Smoking Status: Current every day smoker Hx Alcohol Use: Yes Hx Substance Use: No Review of Systems The patient denies palpitations, shortness of breath, dyspnea on exertion, cough, lower extremity swelling, sore throat, fevers, chills, sweats, weight change, fatigue, nausea, vomiting, diarrhea , constipation, pelvic pain, blood in urine or stool, dysuria, urinary frequency or urgency, lightheadedness, dizziness, headache, memory loss, loss of consciousness, rash, abnormal bruising or bleeding, imbalance, generalized arthralgias or myalgias, back or neck pain, or night sweats. The review of systems is otherwise negative other than for that already noted above, and at least 10 systems have been reviewed. Physical Exam Vital Signs (Past 24 Hours): Last Vital Signs Temp 36.9 C 01/08/19 17:50 Pulse 87 01/08/19 21:12 Resp 19 01/08/19 21:12 BP 131/83 01/08/19 21:12 Pulse Ox 98 01/08/19 21:12 Physical Exam: The patient is awake, alert and oriented 3, mildly lethargic and smells of alcohol, normocephalic and atraumatic, lying in bed and in no acute distress. HEENT--PERRL, EOMI, mucous membranes and oropharynx dry. Neck--supple. No JVD. No bruits. Thyroid normal, trachea midline, no adenopathy. Heart--normal S1 and S2. No murmurs, rubs or gallops. Lungs--clear bilaterally, no respiratory distress, no accessory muscle use. Abdomen--normal bowel sounds and soft. Nontender. Nondistended. Extremities--no cyanosis or clubbing. No edema. There are good distal pulses b/l. Dermatologic--normal skin turgor, normal color, no abnormal lymph nodes, no rash. Neurologic--cranial nerves II through XII grossly intact. Motor strength 5 out of 5 upper and lower extremities bilaterally and equal. Rheumatologic--normal range of motion. Psychiatric--normal affect. Results & Data Laboratory Results Laboratory Results WBC 7.29 K/uL (4.8-10.8) 01/08/19 17:57 RBC 5.32 M/uL (4.2-5.4) 01/08/19 17:57 Hgb 15.2 g/dL (12.0-16.0) 01/08/19 17:57 Hct 43.9 % (37-47) 01/08/19 17:57 MCV 82.5 fL (80-100) 01/08/19 17:57 MCH 28.6 pg (25-34) 01/08/19 17:57 MCHC 34.6 g/dL (32-36) 01/08/19 17:57 RDW Std Deviation 49.7 fL (36.4-46.3) H 01/08/19 17:57 RDW Coeff of Brooke 16.4 % (11.5-14.5) H 01/08/19 17:57 Plt Count 331 K/uL (130-400) 01/08/19 17:57 MPV 10.3 fL (7.4-10.4) 01/08/19 17:57 Immature Gran % (Auto) 0.1 % 01/08/19 17:57 Neut % (Auto) 43.9 % 01/08/19 17:57 Lymph % (Auto) 45.3 % 01/08/19 17:57 [place] % (Auto) 8.5 % 01/08/19 17:57 Eos % (Auto) 1.9 % 01/08/19 17:57 Baso % (Auto) 0.3 % 01/08/19 17:57 Immature Gran # (Auto) 0.01 K/uL (0.00-0.02) 01/08/19 17:57 Neut # (Auto) 3.20 K/uL (1.4-6.5) 01/08/19 17:57 Lymph # (Auto) 3.30 K/uL (1.2-3.4) 01/08/19 17:57 [place] # (Auto) 0.62 K/uL (0.11-0.59) H 01/08/19 17:57 Eos # (Auto) 0.14 K/uL (0-0.5) 01/08/19 17:57 Baso # (Auto) 0.02 K/uL (0-0.2) 01/08/19 17:57 PT 10.6 Seconds (9.0-12.0) 01/08/19 17:57 INR 1.0 (0.9-1.1) 01/08/19 17:57 Sodium 145 mmol/L (136-145) 01/08/19 17:57 Potassium 4.3 mmol/L (3.5-5.1) 01/08/19 17:57 Chloride 111 mmol/L (98-107) H 01/08/19 17:57 Carbon Dioxide 29 mmol/L (21-32) 01/08/19 17:57 Anion Gap 5.0 (3-11) 01/08/19 17:57 BUN 10 mg/dl (7-18) 01/08/19 17:57 Creatinine 0.80 mg/dl (0.6-1.2) 01/08/19 17:57 Est Cr Clr Drug Dosing 96.6 ml/min 01/08/19 17:57 Est GFR ( Amer) 101.0 01/08/19 17:57 Est GFR (Non-Af Amer) 87.2 01/08/19 17:57 BUN/Creatinine Ratio 13.0 (10-20) 01/08/19 17:57 Glucose 91 mg/dl (70-99) 01/08/19 17:57 Calcium 8.4 mg/dl (8.5-10.1) L 01/08/19 17:57 Total Bilirubin 0.3 mg/dl (0.2-1) 01/08/19 17:57 AST 16 U/L (15-37) 01/08/19 17:57 ALT 26 U/L (12-78) 01/08/19 17:57 Alkaline Phosphatase 109 U/L (45-117) 01/08/19 17:57 POC Troponin I < 0.03 ng/ml (0-0.045) 01/08/19 18:19 Troponin I 0.020 ng/ml (0-0.045) 01/08/19 21:58 Total Protein 7.1 gm/dl (6.4-8.2) 01/08/19 17:57 Albumin 3.4 gm/dl (3.4-5.0) 01/08/19 17:57 Globulin 3.7 gm/dl (2.5-4.0) 01/08/19 17:57 Albumin/Globulin Ratio 0.9 (0.9-2) 01/08/19 17:57 Lipase 113 U/L (73-393) 01/08/19 17:57 Folate 3.59 ng/ml (>5.38) L 01/08/19 21:58 Ethyl Alcohol mg/dL 124.4 mg/dl (0-3) H 01/08/19 21:09 Diagnostic Findings [facility], [place] [phone] CT Scan Report Patient: THADDEUS TIRADO Date: 01/08/19 MR#: [id number]: [address] Acct ID:[id number]: Date: 1970[facility] Zip: [place] [address] Age: 48Location: ED Sex: F Room/Bed: Att Phy: Diagnosis: CHEST PAIN Sarah Phy: RV. Clarisse, MDService Date: 01/08/19 Fam Phy: Justin Mary Jr, MDInterpreting Phy: Roman Longo MD Admit Phy: Ordering Phy: Kapil Ramirez M.D. cc: ~ CT SCAN OF THE BRAIN WITHOUT IV CONTRAST CLINICAL HISTORY: Transient right-sided weakness. COMPARISON STUDY: CT of the brain dated 06/24/2014. TECHNIQUE: Unenhanced axial CT scan of the brain is performed from the vertex to the skull base. A dose lowering technique was utilized adhering to the principles of ALARA. CT DOSE: 537.48 mGy.cm FINDINGS: Brain parenchyma: The brain parenchyma is normal in appearance. There is no hemorrhage, mass effect, or evidence of acute territorial ischemia by CT criteria. [place]-white matter differentiation is preserved. No extra-axial fluid collection is seen. Ventricles, sulci, cisterns: Normal in configuration. Intracranial vasculature: The visualized intracranial vasculature at the skull base is normal in appearance. Calvarium: Unremarkable. Sinuses and mastoids: The visualized paranasal sinuses are clear. The mastoid air cells are well pneumatized. Orbits: The bony orbits are grossly intact. IMPRESSION: No acute intracranial abnormality. Electronically signed by: Roman Longo M.D. 01/08/2019 6:45 PM Dictated: 01/08/19 184 Transcribed: 01/08/19 1843 [facility], [place] [phone] XRay Report Patient: THADDEUS TIRADO Date: 01/08/19 MR#: [id number]: [address] Acct ID:[id number]: Date: 1970 Zip: [place] [address] Age: 48Location: ED Sex: F Room/Bed: Att Phy: Diagnosis: CHEST PAIN Sarah Phy: Clarisse, RV., MDService Date: 01/08/19 Fam Phy: Justin Mary Jr, MDInterpreting Phy: Roman Longo MD Admit Phy: Ordering Phy: Kapil Ramirez M.D. cc: ~ SINGLE VIEW CHEST CLINICAL HISTORY: Atypical chest pain. FINDINGS: An AP, portable, semierect chest radiograph is compared to study dated 07/12/2016. Correlation is made with chest CT dated 02/19/2010. The examination is degraded by portable technique, apical lordotic positioning, and patient rotation. The cardiomediastinal silhouette is unremarkable. Calcified mediastinal and hilar lymph nodes are again noted. The lungs and pleural spaces are clear. No pneumothorax is seen. The bony thorax is grossly intact. IMPRESSION: No active disease in the chest. Electronically signed by: Roman Longo M.D. 01/08/2019 6:27 PM Dictated: 01/08/191826 Transcribed: 01/08/191826 [place], [place] [phone] CT Scan Report Patient: THADDEUS TIRADO Date: 01/08/19 MR#: [id number]: [address] ROS[address] Acct ID:[id number]: Date: 1970[facility] Zip: [place] [address] Age: 48Location: 2E Sex: F Room/Bed: [facility] Att Phy: Long Champion M.D.Diagnosis: RIGHT SIDE WEAKNESS Sarah Phy: Clarisse, RV., MDService Date: 01/08/19 Fam Phy: Justin Mary Jr, MDInterpreting Phy: Roman Longo MD Admit Phy: Long Champion M.D. Ordering Phy: Long Champion M.D. cc: ~ CT ANGIOGRAM OF THE BRAIN; CT ANGIOGRAM OF THE NECK CLINICAL HISTORY: Right-sided weakness. COMPARISON STUDY: Unenhanced CT of the brain performed the same day 01/08/2019. MR angiogram of the head and neck dated 02/06/2015. Thyroid ultrasound dated 05/17/2016. TECHNIQUE: Following the IV administration of 115 of Optiray 320, CT angiogram of the head and neck was performed from the aortic arch to the vertex. Images are reviewed in the axial, sagittal, and coronal planes. 3-D MIPS images are created and assessed. IV contrast was administered without complication. All measurements were calculated based on NASCET criteria. A dose lowering techni que was utilized adhering to the principles of ALARA. CT DOSE: 483.93 mGy.cm FINDINGS: Brain parenchyma: The brain parenchyma is normal in appearance. There is no hemorrhage, mass effect, or evidence of acute territorial ischemia by CT criteria. There is no evidence of enhancing mass lesion on the angiogram phase images. The ventricles, sulci, and cisterns are normal in configuration. [place]-white matter differentiation is preserved. No extra-axial fluid collection is seen. Thoracic aorta: Visualized portions of the thoracic aorta are normal in caliber. The aortic arch demonstrates standard 3-vessel anatomy. Right carotid arterial system: The right common carotid artery is widely patent, as are the right internal and external carotid arteries. Left carotid arterial system: The left common carotid artery is widely patent, as are the left internal and external carotid arteries. Vertebral arteries: The vertebral arteries are widely patent bilaterally and codominant. Subclavian arteries: Widely patent bilaterally. Intracranial vasculature: The internal carotid arteries are patent at the skull base, as are the anterior and middle cerebral arteries bilaterally. The vertebrobasilar system and posterior cerebral arteries are widely patent. The vertebral arteries are codominant. There is no aneurysm, high-grade stenosis, or focal vessel cut off seen throughout the intracranial circulation. Jugular veins: Widely patent bilaterally. Dural sinuses: Patent. Lung apices: Partially visualized upper lobe lung parenchyma appears clear. Soft tissues: The visualized pharyngeal soft tissues are normal in appearance noting angiographic phase technique. The oropharyngeal airway appears widely patent. The thyroid gland is enlarged and heterogeneous. Low-attenuation thyroid nodules measure up to 13 mm. These were assessed on previous thyroid ultrasounds. The salivary glands are normal in appearance. No cervical lymphadenopathy is seen. Skeletal structures: The calvarium appears intact. The cervical spine is within normal limits. Sinuses and mastoids: The paranasal sinuses are clear. The mastoid air cells are well pneumatized. IMPRESSION: 1. There is no hemorrhage, mass effect, or evidence of acute territorial ischemia by CT criteria noting angiographic technique. 2. Unremarkable CT angiogram of the brain. 3. Unremarkable CT angiogram of the neck. Electronically signed by: Roman Longo M.D. 01/08/2019 10:49 PM Dictated: 01/08/192241 Transcribed: 01/08/192241 [place], [place] [phone] CT Scan Report Patient: THADDEUS TIRADO Date: 01/08/19 MR#: [id number]: [address] Acct ID:[id number]: Date: [address] Zip: [place] [address] Age: 48Location: 2E Sex: F Room/Bed: [facility] Att Phy: Long Champion M.D.Diagnosis: RIGHT SIDE WEAKNESS Sarah Phy: RV. Clarisse, MDService Date: 01/08/19 Fam Phy: Justin Mary Jr, MDInterpreting Phy: Roman Longo MD Admit Phy: Long Champion M.D. Ordering Phy: Long Champion M.D. cc: ~ CT ANGIOGRAM OF THE BRAIN; CT ANGIOGRAM OF THE NECK CLINICAL HISTORY: Right-sided weakness. COMPARISON STUDY: Unenhanced CT of the brain performed the same day 01/08/2019. MR angiogram of the head and neck dated 02/06/2015. Thyroid ultrasound dated 05/17/2016. TECHNIQUE: Following the IV administration of 115 of Optiray 320, CT angiogram of the head and neck was performed from the aortic arch to the vertex. Images are reviewed in the axial, sagittal, and coronal planes. 3-D MIPS images are created and assessed. IV contrast was administered without complication. All measurements were calculated based on NASCET criteria. A dose lowering technique was utilized adhering to the principles of ALARA. CT DOSE: 483.93 mGy.cm FINDINGS: Brain parenchyma: The brain parenchyma is normal in appearance. There is no hemorrhage, mass effect, or evidence of acute territorial ischemia by CT criteria. There is no evidence of enhancing mass lesion on the angiogram phase images. The ventricles, sulci, and cisterns are normal in configuration. [place]- white matter differentiation is preserved. No extra-axial fluid collection is seen. Thoracic aorta: Visualized portions of the thoracic aorta are normal in caliber. The aortic arch demonstrates standard 3-vessel anatomy. Right carotid arterial system: The right common carotid artery is widely patent, as are the right internal and external carotid arteries. Left carotid arterial system: The left common carotid artery is widely patent, as are the left internal and external carotid arteries. Vertebral arteries: The vertebral arteries are widely patent bilaterally and codominant. Subclavian arteries: Widely patent bilaterally. Intracranial vasculature: The internal carotid arteries are patent at the skull base, as are the anterior and middle cerebral arteries bilaterally. The vertebrobasilar system and posterior cerebral arteries are widely patent. The vertebral arteries are codominant. There is no aneurysm, high-grade stenosis, or focal vessel cut off seen throughout the intracranial circulation. Jugular veins: Widely patent bilaterally. Dural sinuses: Patent. Lung apices: Partially visualized upper lobe lung parenchyma appears clear. Soft tissues: The visualized pharyngeal soft tissues are normal in appearance noting angiographic phase technique. The oropharyngeal airway appears widely patent. The thyroid gland is enlarged and heterogeneous. Low-attenuation thyroid nodules measure up to 13 mm. These were assessed on previous thyroid ultrasounds. The salivary glands are normal in appearance. No cervical lymphadenopathy is seen. Skeletal structures: The calvarium appears intact. The cervical spine is within normal limits. Sinuses and mastoids: The paranasal sinuses are clear. The mastoid air cells are well pneumatized. IMPRESSION: 1. There is no hemorrhage, mass effect, or evidence of acute territorial ischemia by CT criteria noting angiographic technique. 2. Unremarkable CT angiogram of the brain. 3. Unremarkable CT angiogram of the neck. Electronically signed by: Roman Longo M.D. 01/08/2019 10:49 PM Dictated: 01/08/192241 Transcribed: 01/08/192241 Code Status & VTE Plan Code Status Full code VTE Prophylaxis Plan VTE Prophylaxis will be ordered: Yes
[2019-01-08] MEDS ORDERED: ALUMINUM/MAGNESIUM SUSP 30 ML UDC PO PRN (21:47)
[2019-01-08] MEDS ORDERED: ONDANSETRON INJ 2 MG/ML 2 ML VIAL IV PRN (21:47)
[2019-01-08] MEDS ORDERED: LORazepam 2 MG/4 ML VIAL IV PRN (21:47)
[2019-01-08] MEDS ORDERED: MULTI-VITAMIN INFUSION 10 ML, THIAMINE HCL 100 MG, FOLIC ACID 1 MG in SODIUM CHLORIDE 0... IV SCH (21:47)
[2019-01-08] MEDS ORDERED: NITROGLYCERIN SL 0.4 MG/TAB TAB SL PRN (21:47)
[2019-01-08] MEDS ORDERED: LORazepam 1 MG/2 ML VIAL IV PRN (21:47)
[2019-01-08] MEDS ORDERED: ACETAMINOPHEN 325 MG TAB PO PRN (21:47)
[2019-01-08] MEDS ORDERED: ATIVAN IV ALCOHOL WITHDRAWL IV SCH (21:47)
[2019-01-08] MEDS ORDERED: LORazepam 3 MG/6 ML VIAL IV PRN (21:47)
[2019-01-08] MEDS ORDERED: POLYETHYLENE (MIRALAX) 17 GM PACK PO PRN (21:47)
[2019-01-08] MEDS ORDERED: MAGNESIUM HYDROXIDE SUSP 30 ML UDC PO PRN (21:47)
[2019-01-08] MEDS ORDERED: PHARMACIST DISCHARGE MED REC CONSULT PRN (21:47)
--- NOTE | 2019-01-08 22:51 | CT Scan Report ---
CT ANGIOGRAM OF THE BRAIN; CT ANGIOGRAM OF THE NECK CLINICAL HISTORY: Right-sided weakness. COMPARISON STUDY: Unenhanced CT of the brain performed the same day 01/08/2019. MR angiogram of the he ad and neck dated 02/06/2015. Thyroid ultrasound dated 05/17/2016. TECHNIQUE: Following the IV administration of 115 of Optiray 320, CT angiogram of the head and neck w as performed from the aortic arch to the vertex. Images are reviewed in the axial, sagittal, and sherwin nal planes. 3-D MIPS images are created and assessed. IV contrast was administered without complicati on. All measurements were calculated based on NASCET criteria. A dose lowering technique was utilize d adhering to the principles of ALARA. CT DOSE: 483.93 mGy.cm FINDINGS: Brain parenchyma: The brain parenchyma is normal in appearance. There is no hemorrhage, mass effect, or evidence of acute territorial ischemia by CT criteria. There is no evidence of enhancing mass lesi on on the angiogram phase images. The ventricles, sulci, and cisterns are normal in configuration. [place] ay-white matter differentiation is preserved. No extra-axial fluid collection is seen. Thoracic aorta: Visualized portions of the thoracic aorta are normal in caliber. The aortic arch demo nstrates standard 3-vessel anatomy. Right carotid arterial system: The right common carotid artery is widely patent, as are the right int ernal and external carotid arteries. Left carotid arterial system: The left common carotid artery is widely patent, as are the left internal controls analyst al and external carotid arteries. Vertebral arteries: The vertebral arteries are widely patent bilaterally and codominant. Subclavian arteries: Widely patent bilaterally. Intracranial vasculature: The internal carotid arteries are patent at the skull base, as are the ante rior and middle cerebral arteries bilaterally. The vertebrobasilar system and posterior cerebral billy jason are widely patent. The vertebral arteries are codominant. There is no aneurysm, high-grade steno sis, or focal vessel cut off seen throughout the intracranial circulation. Jugular veins: Widely patent bilaterally. Dural sinuses: Patent. Lung apices: Partially visualized upper lobe lung parenchyma appears clear. Soft tissues: The visualized pharyngeal soft tissues are normal in appearance noting angiographic pha se technique. The oropharyngeal airway appears widely patent. The thyroid gland is enlarged and heter ogeneous. Low-attenuation thyroid nodules measure up to 13 mm. These were assessed on previous thyroi d ultrasounds. The salivary glands are normal in appearance. No cervical lymphadenopathy is seen. Skeletal structures: The calvarium appears intact. The cervical spine is within normal limits. Sinuses and mastoids: The paranasal sinuses are clear. The mastoid air cells are well pneumatized. IMPRESSION: 1. There is no hemorrhage, mass effect, or evidence of acute territorial ischemia by CT criteria noti ng angiographic technique. 2. Unremarkable CT angiogram of the brain. 3. Unremarkable CT angiogram of the neck. Electronically signed by: Roman Longo M.D. 01/08/2019 10:49 PM
[2019-01-08] MEDS ORDERED: OPTIRAY 320 125ml IV PRN (22:52)
[2019-01-08] MEDS: HEPARIN SOD 5,000 UNIT/0.5 ML VIAL SQ SCH (23:58)
[2019-01-08] MEDS: THIAMINE HCL 100 MG TAB PO SCH (23:59)
[2019-01-09 05:48] LABS: Basophils # (auto) 0.04 K/uL (0-0.2); Basophils % (auto) 0.5 %; Eosinophils # (auto) 0.21 K/uL (0-0.5); Eosinophils % (auto) 2.8 %; Hematocrit (blood only) 38.1 % (37-47); Hemoglobin 13.3 g/dL (12.0-16.0); Immature Granulocytes # (auto) 0.01 K/uL (0.00-0.02); Immature Granulocytes % (auto) 0.1 %; Lymphocytes # (auto) 3.21 K/uL (1.2-3.4); Lymphocytes % (auto) 43.1 %; Mean Corpuscular Hgb Conc 34.9 g/dL (32-36); Mean Corpuscular Volume 82.5 fL (80-100); Mean Platelet Volume 10.4 fL (7.4-10.4); Monocytes # (auto) 0.59 K/uL (0.11-0.59); Monocytes % (auto) 7.9 %; Neutrophils # (auto) 3.39 K/uL (1.4-6.5); Neutrophils % (auto) 45.6 %; Platelet Count 273 K/uL (130-400); RDW Coefficient of Variation 16.4 % (11.5-14.5); RDW Standard Deviation 50.1 fL (36.4-46.3); Red Blood Count 4.62 M/uL (4.2-5.4); White Blood Count 7.45 K/uL (4.8-10.8)
[2019-01-09 06:05] LABS: Estimated Average Glucose 117 mg/dl; Hemoglobin A1C 5.7 % (4.5-5.6)
[2019-01-09 06:05] LABS: Prothrombin Time 10.3 Seconds (9.0-12.0)
[2019-01-09 06:25] LABS: BUN Creatinine Ratio 21.4 (10-20); Calcium 7.7 mg/dl (8.5-10.1); Creatinine Clr Calc Pharmacy 130.8 ml/min; Est GFR (African American) 125.6; Est GFR (Non-African American) 108.4; Potassium 3.7 mmol/L (3.5-5.1)
[2019-01-09 06:36] LABS: Troponin I 0.022 ng/ml (0-0.045)
[2019-01-09 06:48] LABS: T4 Free Thyroxine 0.76 ng/dl (0.8-1.6)
--- NOTE | 2019-01-09 07:14 | Magnetic Resonance Report ---
MRI OF THE BRAIN WITHOUT CONTRAST CLINICAL HISTORY: Right-sided weakness and numbness. COMPARISON STUDY: MRI of the brain November 25, 2015. Head CT and CTA of the head January 08, 2019. TECHNIQUE: Utilizing a 1.5 Julia magnet and dedicated coil, multiplanar, multiecho imaging of the bra in was performed without IV contrast. FINDINGS: There are no foci of restricted diffusion to suggest acute infarct. No acute intracranial h emorrhage, midline shift or mass effect is present. Ventricular system is normal. Basilar cisterns ar e patent. There are no extra-axial collections. Flow-voids for the major intracranial vessels are pre sent. No intracranial masses identified on this unenhanced exam. There is minimal sinus mucosal thick ening. A few small white matter T2 hyperintense foci are unchanged since MRI of November 25, 2015. Th e appearance of the brain is unchanged. IMPRESSION: 1. No acute intracranial findings. 2. No change in appearance of the brain since MRI November 25, 2015. Electronically signed by: Jason Boucher M.D. 01/09/2019 7:13 AM
[2019-01-09] MEDS: HEPARIN SOD 5,000 UNIT/0.5 ML VIAL SQ SCH (07:43)
[2019-01-09] MEDS: THIAMINE HCL 100 MG TAB PO SCH (07:44)
--- NOTE | 2019-01-09 08:49 | Neurology Consultation ---
Date of Consultation January 09, 2019 Assessment & Plan (1) TIA (transient ischemic attack): Patient had a 45 minute episode January 08 of right face, arm, and leg weakness and numbness with some dysarthria , which then resolved and has not recurred. On neurologic examination today she has no focal neurologic signs, meningeal signs, or encephalopathy. This event is consistent with a transient ischemic attack in the left middle cerebral artery territory distribution. MRI of the brain showed no actual stroke. There were minimal small vessel ischemic changes present and unchanged from her previous MRI of 2015. Patient was on 81 milligram aspirin and 75 milligram clopidogrel up until 6 m onths ago when she discontinued these and all other medication. Risk factors for stroke include ongoing cigarette smoking (although she has cut back over time), hypertension, dyslipidemia, and alcohol abuse. (2) Anxiety and depression: Patient has a long-standing diagnosis of schizoaffective disorder, depressive type as well as anxiety. She was on multiple medications as listed in the history of present illness but stopped every 1 of these medications about 6 months ago. Now her mood is worse and she is feeling depressed. I do not get a sense on the interview today that she is having a significant thought disorder. I note her significant weight loss over short period of time recently. This could be due to excessive drinking without adequate nourishment but is likely secondary to her depression and being off medication that gave her weight gain. (3) Alcohol abuse: Patient has a history of alcohol and substance abuse. She was doing very well with no significant substance abuse that she admits to and was not drinking much alcohol when over the last month or 2 she started drinking more. This teena lly picked up over the last week. This is likely due to her mood being worse off medication. (4) Medical non-compliance: This is 1 of her main problems in that we are not going to help her if she refuses to take medication or follow-up visits with her appropriate clinicians. Recommendations: 1. Continue 81 milligram aspirin tablet plus 75 milligrams clopidogrel for 3 weeks and then discontinue the aspirin keeping clopidogrel alone. There is no neurologic data to suggest that neurologically she is any better off on both than 1 alone after 3 weeks, and there is data that this combination long-term will increase bleeding risk. 2. Restart antihypertensive keeping blood pressure approximately at a mean arterial pressure of 95-100. 3. Discontinue all cigarette smoking. 4. Discontinue all alcohol usage. 5. Awaiting echocardiogram results. 6. Restart Synthroid at previous dose. 7. Multiple vitamin daily including B vitamins (folate , B12, thiamine, etc). 8. Encourage compliance with medication and follow-up visits. 9. Consider psychiatric consultation. She needs to be on something but not perhaps as much as she was on before she stopped all of her medication. I have no further neurologic testing or treatment recommendations to make otherwise at this time and would see her for follow-up as an outpatient. Overall, I spent a total of 80 minutes with this case including review of records, review of MRI films, direct evaluation the patient at bedside, and discussion of the case with the patient, clinical staff, and Dr. Carey, including differential diagnosis and treatment options. Greater than 50 percent of this visit was spent in direct [id number] time with the patient, at 50 minutes. History of Present Illness Reason for Consultation: Year old, who I was asked at the request of Dr. Champion, for neurologic evaluation regarding acute neurologic deficits, stroke versus TIA Requesting Physician: Dr. Champion Attending Physician: Long Champion MD History of Present Illness This patient apparently has a longstanding history of coronary artery disease, hypertension, dyslipidemia, and psychiatric issues including schizoaffective disorder, depressive type and anxiety. She had MRI in 2013 requiring coronary stents. She had several TIA events in 2010, 2011 and then again in early 2014. She was on aspirin and Plavix. She saw Dr. Navas the 1st time December 20, 2014 who felt that the patient probably had a TIA but anxiety attack could not be excluded. MRI of the brain at that time showed a few scattered tiny white matter spots of an old nature, at least 1 being new from 2011. She last saw Dr. Navas January 15, 2016. She was dealing with chronic low back pain and right frontal headaches. At the time she was on topiramate but this was discontinued sometime later. She was stable otherwise from a neurologic standpoint. In November of 2015, EMG and nerve conduction studies of the lower extremities were unremarkable without polyneuropathy and there may have been some very slight lumbosacral radiculopathy of an acute nature (poorly localizable). An MRI of the lumbar spine in January of 2016 showed a mild L4-5 disc bulge to the right and no other significant changes. She was lost to follow-up neurologically. Patient has been following Psychiatry at [facility]. She saw Jelena Brar PA-C on September 16, 2017 (which is the last note I can find from them) and was diagnosed with schizoaffective disorder, depressive type and anxiety. At that time she was on venlafaxine 150 milligrams a day, Haldol 10 milligrams twice a day, G and tone 20 milligrams twice a day, trazodone 150 milligrams at bedtime, and benztropine 0.5 milligrams twice a day. She was also getting Vistaril and Ativan some. She felt drugged and overmedicated on this regimen. In July of 2016, she Mary Cabrera, pulverizer tender, who prescribed Synthroid. She was followed by Dr. Ochoa as her primary care she last saw in April of 2017. Patient apparently stopped every 1 of her medications about 6 months ago or so. She was just "tired of taking everything". Since this time, she has been getting worse. Her mood is been poor over the last 2 months with mood swings. Although she has cut her cigarette smoking down to about a pack per week, she started recently drinking alcohol again. She thinks this is because of her mood. She started drinking about one 32 ounce can of Monae Light beer per day, but over the last week she has been up to 3 of these 32 ounce cans. On January 06 and she felt stressed. She went to sleep at 0300 on January 08. She had been drinking prior whole evening and night. She woke up at 1630 on January 08 with severe chest pain (10/10) and noticed that her right arm, right leg, and right face were numb and tingly and she was very weak in the arm and leg. The she felt that her speech was a little slurred but was thinking appropriately. The weakness and numbness lasted about 45 minutes then resolved. By the time she got to the emergency room she was still having some chest pain. She arrived to the emergency room on January 08 at 1750 with a temperature 36.9, pulse of 90 and regular, respiratory rate 17, blood pressure 109/59, and O2 saturation 96 percent. Neurologic examination was nonfocal and she had no encephalopathy or meningeal signs. CT scan of the head was unremarkable Chest x-ray was unremarkable CBC and Chem profile were unremarkable. Folate was low and TSH was elevated at 5.7. T4 was low. Alcohol level was elevated at 124. She was not . CT angiography of the head and neck were unremarkable without any significant stenoses or vascular anomalies. MRI of the brain showed no acute stroke. It showed no change from November of 2015. There were mild, nonspecific, scattered, old small vessel ischemic changes the (again unchanged). Overnight and this morning she still has little bit of chest pressure but she has no headache or pain otherwise. Her mood is good and she does not feel shaky. She has no incontinence of urine, weakness, numbness, or speech problems. Allergies Allergy/AdvReac Type Severity Reaction Status Date / Time No Known Allergies Allergy Verified 01/08/19 19:37 Home Medications Home Medications Medication Instructions Recorded Confirmed Type No Known Home Medications 01/08/19 01/08/19 History Patient History Medical History History of stroke STEMI (ST elevation myocardial infarction) (Acute) Medical non-compliance (Acute) Schizoaffective disorder, depressive type (Chronic) Surgical History H/O heart artery stent Social History Preferred Language: Canadian Communication Ability: Effective Software Systems Architect Required: No Beliefs That Will Affect Care: None Current Living Situation: Family Current Living Situation Comment: with son current occupational status: previously employed 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 Feels Safe at Home: Yes Safety Concerns: Feels Safe At This Time Smoking Status: Current every day smoker Hx Alcohol Use: Yes Hx Substance Use: No Review of Systems Constitutional: + weight loss (Has lost 45 pounds without dieting over the last 6 months or so.); no fever and no fatigue Eyes: no diplopia, no eye pain and no worsening vision Ear, Nose, Mouth, Throat: no ear pain, no tinnitus, no hearing loss and no dysphagia Respiratory: no cough and no dyspnea Cardiovascular: + chest pain; no dyspnea and no palpitations Gastrointestinal: no abdominal pain, no nausea and no vomiting Genitourinary (Female): no dysuria, no urinary frequency and no urinary incontinence Musculoskeletal: + back pain; no neck pain, no radicular pain, no myalgia, no muscle weakness and no muscle atrophy Integumentary: no rash and no lesions Neurologic: no gait abnormality, no falls, no localized weakness, no generalized weakness, no tingling, no numbness, no tremor(s), no abnormal movements, no dizziness, no headache(s), no abnormal speech, no behavioral changes, no confusion and no memory loss Psychiatric: + depression; no abnormal sleep pattern, no anxiety, no difficulty concentrating, no confusion and no hallucinations Endocrine: no fatigue and no flushing Hematologic / Lymphatic: no easy bleeding and no easy bruising Allergy / Immunological: no urticaria Physical Exam Vital Signs (Past 24 Hours): Last Vital Signs Temp 36.8 C 01/09/19 03:51 Pulse 76 01/09/19 03:51 Resp 17 01/09/19 03:51 BP 106/53 L 01/09/19 03:51 Pulse Ox 98 01/09/19 03:51 Physical Exam: The patient is right-handed. The patient is awake, alert, and attentive. Speech is normal without any aphasia or dysarthria. Mentation and thought processes are intact, with full orientation and normal fund of knowledge. Attention and concentration are n ormal. Mood and affect are normal and appropriate. General appearance and grooming are normal. Short and long-term memory are intact. The discs are sharp with positive venous pulsations bilaterally. There are no exudates, hemorrhages, or blood vessel changes seen. Pupils are 4 mm bilaterally and reactive to light. Extraocular eye muscles are intact without nystagmus. Visual acuity and visual davis seem normal grossly to confrontation. There are no deficits to sensation in the face in all 3 distributions of the fifth cranial nerve bilaterally. Corneal reflexes are positive bilaterally. Faci al strength and symmetry was normal bilaterally. Hearing seems intact grossly to voice and finger rub bilaterally. Palate moves well without asymmetry. There is normal sternocleidomastoid and trapezius (shoulder shrug) strength bilaterally. Tongue is midline with good strength bilaterally. Neck has a full range of motion without discomfort. There are no cervical bruits bilaterally. There are no cranial or ocular bruits. Heart is without murmur. There is a regular rhythm and rate. Cervical and thoracic spine are nontender to palpation. Patient has some mild diffuse tenderness over the lumbar spine both paraspinals and spinous processes without spasm. Gait is narrow based, with good arm swing, turns, and stance. Balance is normal eyes open or closed. With outstretched arms there is no drift. There are no resting, postural, or action tremors. There is no ataxia with finger to nose testing. There is good facility in the hands. No other abnormal involuntary movements are noted. Motor strength is 5/5 diffusely in the arms bilaterally including deltoids, biceps, triceps, brachioradialis, wrist flexors and extensors, operations lieutenant, and intrinsic hand muscles. Motor strength is 5/5 diffusely in the legs bilaterally including hip flexors, quadriceps, hamstrings, gastrocnemius, tibialis anterior, tibialis posterior, and Peroneii muscles bilaterally. Toe extensors are normal and there is good bulk in the extensor digitorum brevis muscles bilaterally. The limbs have good tone without rigidity or spasticity. There is no atrophy noted in the muscles. Muscle bulk is normal, there is no tenderness to palpation, no myotonia to percussion, and no fasciculations seen. Vibratory and position sense testing is normal bilaterally as well. There is normal sensation to temperature. Reflexes are 2/4 in the biceps, triceps, brachioradialis, quadriceps, and Achilles tendons bilaterally. Toes are downgoing with plantar stimulation bilaterally. Peripheral pulses are present and of normal quality distally in all 4 limbs. There is no peripheral edema noted in the limbs. Results & Data Diagnostic Findings [place], [place] [phone] Magnetic Resonance Report Patient: THADDEUS TIRADO Date: 01/08/19 MR#: [id number]: [address] Acct ID:[id number]: Date: 1970City Zip: [place] [address] Age: 48Location: 2E Sex: F Room/Bed: [facility] Att Phy: Long Champion M.D.Diagnosis: RIGHT SIDE WEAKNESS Sarah Phy: RV. Clarisse, MDService Date: 01/08/19 Fam Phy: Justin Mary Jr, MDInterpreting Phy: Jason Boucher MD Admit Phy: Long Champion M.D. Ordering Phy: Long Champion M.D. cc: ~ MRI OF THE BRAIN WITHOUT CONTRAST CLINICAL HISTORY: Right-sided weakness and numbness. COMPARISON STUDY: MRI of the brain November 25, 2015. Head CT and CTA of the head January 08, 2019. TECHNIQUE: Utilizing a 1.5 Julia magnet and dedicated coil, multiplanar, multiecho imaging of the brain was performed without IV contrast. FINDINGS: There are no foci of restricted diffusion to suggest acute infarct. No acute intracranial hemorrhage, midline shift or mass effect is present. Ventricular system is normal. Basilar cisterns are patent. There are no extra- axial collections. Flow-voids for the major intracranial vessels are present. No intracranial masses identified on this unenhanced exam. There is minimal sinus mucosal thickening. A few small white matter T2 hyperintense foci are unchanged since MRI of November 25, 2015. The appearance of the brain is unchanged. IMPRESSION: 1. No acute intracranial findings. 2. No change in appearance of the brain since MRI November 25, 2015. Electronically signed by: Jason Boucher M.D. 01/09/2019 7:13 AM
[2019-01-09] MEDS ORDERED: FOLIC ACID 1 MG TAB PO SCH (09:00)
[2019-01-09] MEDS ORDERED: ASPIRIN 81 MG ECTAB PO SCH (09:00)
[2019-01-09] MEDS ORDERED: CLOPIDOGREL BISULFATE 75 MG TAB PO SCH (09:00)
[2019-01-09] MEDS ORDERED: LEVOTHYROXINE SODIUM 25 MCG TABLET PO SCH (09:15)
[2019-01-09] MEDS ORDERED: CYANOCOBALAMIN 500 MCG TABLET (VITAMIN B-12) PO SCH (09:15)
[2019-01-09] MEDS ORDERED: KETOROLAC 30 MG/ML VIAL IV ONE (11:45)
[2019-01-09 11:51] LABS: Amphetamines+Metham, Urine Pos (Neg); Barbiturates, Urine Neg (Neg); Benzodiazepine, Urine Neg (Neg); Cocaine, Urine Neg (Neg); MDMA (Ecstacy), Urine Neg (Neg); Methadone, Urine Neg (Neg); Opiate, Urine Neg (Neg); Phencyclidine, Urine Neg (Neg)
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
[2019-01-09] MEDS ORDERED: STROKE PATIENT DISCHARGE STA (14:23)
--- NOTE | 2019-01-09 15:36 | Pharmacy Report ---
Pharmacist Stroke Counseling - Date of Service January 09, 2019 - Scope: Pharmacy has been consulted to provide medication discharge counseling for this patient admitted with [transient ischemic attack] as per the Pharmacist Discharge Counseling for Stroke Patients Protocol. - Medications on Discharge: Home Medications Medication Instructions Recorded Confirmed No Known Home Medications 01/08/19 01/08/19 New Rx's Medication Instructions Recorded atorvastatin 40 mg PO DAILY #30 tab 01/09/19 clopidogrel 75 mg PO QAM #30 tab 01/09/19 cyanocobalamin (vitamin B-12) 1,000 mcg PO QAM #90 tab 01/09/19 [Vitamin B-12] folic acid 1 mg PO QAM #30 tab 01/09/19 levothyroxine [Synthroid] 25 mcg PO DAILYBB #30 tab 01/09/19 metoprolol succinate 25 mg PO DAILY #30 tab 01/09/19 nitroglycerin 0.4 mg SUBLINGUAL Q5M PRN #1 btl 01/09/19 pantoprazole 40 mg PO QAM #30 tab 01/09/19 prednisone 30 mg PO DAILY 5 Days #15 tab 01/09/19 thiamine HCl (vitamin B1) 250 mg PO BID #60 tab 01/09/19 - Action: The above medications, specifically ones for stroke treatment/prophylaxis, have been reviewed in detail with the patient and/or patient direct sales representative(s) prior to discharge. This includes indication, common adverse reactions, drug interactions, and medication administration. Medication counseling has been employed using the teach-back method to ensure understanding. - Outcome: The patient and/or patient direct sales representative(s) have demonstrated understanding of the medications. Please note, they are aware that the pharmacist will call them within 72 hours post-discharge to confirm that the appropriate medications are being taken and answer any further medication related questions the patient might have at that time. Contact information Individual to be contacted: patient Relationship to patient (if applicable): n/a Phone number:[phone] Best time to call: anytime Additional comments: Patient familiar with many medications on list as she has previously been on them in the past. Per review of MD notes she had stopped taking all of her medications herself about 6 months prior to hospital stay. Reviewed all new medications and stressed importance of compliance with them. Provided patient with pill box which she stated she did not have one at home. Talked with MD to see if continuation of aspirin was necessary since not listed on medication list on discharge. He states that he spoke with neurology and they are recommending just plavix and no aspirin. Patient aware we will call in a couple days to follow up Thank you for allowing pharmacy to be involved in the care of this patient. Please call [phone] or [phone] with any additional questions
[2019-01-11 13:39] LABS: Amphetamine Urine, Confirm 569 NG/ML (CUTOF=250)
--- NOTE | 2019-01-12 10:54 | Pharmacy Report ---
Pharmacist Post D/C Phone Note - Phone Note: Date of phone call: January 12, 2019. Individual with whom pharmacist spoke to: THADDEUS TIRADO The following questions were reviewed during the phone call with responses listed below each: Can you tell me the medications that you are currently taking as well as when and how you take each medication? -See Table Below When have you missed any doses of your medications? - none What side effects are you having from your medications, specifically, the new medications you were started on? - none What questions do you have about your medications? - none What problems are you having obtaining your medications? - has not been able get the thiamine supplement due to cost issues. It is OTC and she will get it once she has more money. When is your next appointment with your primary care doctor? - 01/15/19 Additional comments: - Pt has not missed any doses of her medications. She stated that she will never stop taking all of her meds again. She is a little overwhelmed with her pill burden (number of medications to take). She did not have enough money for all of the OTC B vitamins so she was not able to get the thiamine. I recommended that she just switch to a B Complex OTC tablet which contains FA, thiamine, and B12 (along with some other B vitamins) to reduce both pill burden and cost. She will discuss this with PCP on Tuesday. Likely start next month after she finishes what she just purchased. As per the Pharmacist Discharge Counseling for Stroke Patients Protocol, this phone call has been completed within 72 hours of discharge. Thank you for allowing us to be involved in the care of this patient. - Home Medications: Home Medications Medication Instructions Recorded Confirmed No Known Home Medications 01/08/19 01/08/19 New Rx's Medication Instructions Recorded atorvastatin 40 mg PO DAILY #30 tab 01/09/19 clopidogrel 75 mg PO QAM #30 tab 01/09/19 cyanocobalamin (vitamin B-12) 1,000 mcg PO QAM #90 tab 01/09/19 [Vitamin B-12] folic acid 1 mg PO QAM #30 tab 01/09/19 levothyroxine [Synthroid] 25 mcg PO DAILYBB #30 tab 01/09/19 metoprolol succinate 25 mg PO DAILY #30 tab 01/09/19 nitroglycerin 0.4 mg SUBLINGUAL Q5M PRN #1 btl 01/09/19 pantoprazole 40 mg PO QAM #30 tab 01/09/19 prednisone 30 mg PO DAILY 5 Days #15 tab 01/09/19 thiamine HCl (vitamin B1) 250 mg PO BID #60 tab 01/09/19
--- NOTE | 2019-01-14 21:03 | Discharge Summary ---
Date of Service date of admission - January 08, 2019 date of discharge - January 09, 2019 Admission HPI Per Admitting Provider The patient is a 48-year-old female with a past medical history including diabetes mellitus, cerebrovascular disease, coronary artery disease, prior STEMI, alcohol abuse, schizoaffective disorder, and medical noncompliance, who presents to the emergency department with complaint of epigastric to chest pain and right-sided decreased sensation and weakness that occurred around 2:30 in the afternoon after awakening. She does report that she began drinking again, and her last drink was at 3:00 in the morning. She reports that she was awake to have her child off to school, and then went back to sleep. She has had no recent injuries to report. She has not been on any of her medications for 6 months. Principal Diagnosis TIA Discharge Exam Constitutional well developed, well nourished and average body habitus; no acute distress and not ill appearing ENMT external ear and nose normal, oropharynx normal Respiratory normal respiratory effort, lungs clear to auscultation Cardiovascular Rate/Rhythm: regular rate and regular rhythm Heart Sounds: normal S1 and normal S2; no murmur Vessels: posterior tibial pulses present and dorsalis pedis pulses present; no JVD Extremities: no edema Chest (Breasts) Additional Comments: very tender to palpation over costo-sternal junction Gastrointestinal (Abdomen) normal bowel sounds, soft, nontender, no hepatosplenomegaly Neurologic patellar DTR's 2+ bilat, sensation intact moves all extremities; no focal motor deficits Speech / Cognition: normal speech Psychiatric A+Ox3, euthymic affect Discharge Data Allergies Allergy/AdvReac Type Severity Reaction Status Date / Time No Known Allergies Allergy Verified 01/08/19 19:37 Consultations 1. neurology - Philip Young MD 2. psychiatry - Gertrude Ledbetter MD 3. PT, OT, speech therapy Ordered Studies 1. CT head - negative for acute process. 2. CTA head/neck - IMPRESSION: 1. There is no hemorrhage, mass effect, or evidence of acute territorial ischemia by CT criteria noting angiographic technique. 2. Unremarkable CT angiogram of the brain. 3. Unremarkable CT angiogram of the neck. 3. MRI brain - no acute process. 4. echocardiogram - * EF 55-60% * no PFO Hospital Course (1) TIA (transient ischemic attack): The patient's right-sided paresthesias were felt to be due to TIA. Fortunately her entire stroke work-up was negative including echo, CTAs head/neck, echo, telemetry, etc. Triglycerides were elevated >400 likely due to recent drinking. She was seen in consult by neurology who recommended reinstitution of plavix for secondary prevention. She was also started on statin therapy due to her known CAD and the TIA. She was counseled to stop drinking alcohol. (2) Costochondritis: The patient had reproducible chest wall tenderness with palpation consistent with costochondritis. Troponins x 3 were negative. A single dose of IV toradol quickly improved her pain/symptoms. She was discharged to home on a 5-day course of prednisone for this. (3) Hypothyroidism (acquired): TSH was high; free T4 was low. She was initiated on synthroid 25mcg daily. She will need repeat TSH in about 6 weeks post-discharge. (4) Anxiety and depression: Seen by psychiatry. Outpatient follow-up advised. (5) Schizoaffective disorder: Seen by psychiatry - inpatient psychiatric admission was not recommended. They advised outpatient follow-up. No med changes were made. (6) Coronary artery disease, occlusive: Patient to resume plavix, statin, and toprol xl. Troponins negative x 3. Chest discomfort was felt to be due to costochondritis. (7) Alcohol abuse: Advised to abstain 100% from alcohol. Sent home on thiamine, folic acid, and b12 supplementation. (8) Folate deficiency: Folate 1mg daily x 1 month. (9) B12 deficiency: B12 1000mcg daily x 6 months. (10) Hyperlipidemia LDL goal <70: Restarted on lipitor 40mg daily. High triglycerides were likely due to recent heavy drinking. (11) GERD (gastroesophageal reflux disease): Restarted on PPI once daily. Total Time Total Time Spent Total Time Spent (In Minutes): 45 Total Time Includes: Examination of the Patient, Discharge Planning, Medication Reconciliation and Communication With Other Providers Discharge Plan Discharge Items Patient Disposition: Home - Self-Care Reason For Visit: RIGHT SIDE WEAKNESS Discharge Diagnosis: right-sided weakness due to "TIA" (transient ischemic attack); chest pain likely from musculoskeletal chest wall pain Discharge Goals: Decrease discomfort, Diagnostic testing and Therapeutic intervention Activity: As commented below Activity Comment: no heavy exertional activity for 2-3 days then resume normal activity Driving/Machine Use: Resume 3 days after discharge Non-emergency contact: Primary Care Provider and Junior Database Administrator Call non-emergency contact if: you have any medication questions, your symptoms worsen and your temperature is above 100.5 Follow-up/Referrals: [facility] [Other] Justin Mary Jr, MD, [facility] [Family Provider] - (see Dr. Mary or one of his partners in 1-2 weeks) Juan Carlos Martinez MD [Primary Care Provider] - 01/15/19 11:40 am (Please, follow up with Dr. Robb on TuesdayJanuary 15 at 11:40 am. *If you need to change this appointment, call the office at [phone].) Diet: Heart Healthy Addtl Provider Instructions: From Duncan Carey - Hospitalist - You were admitted due to chest pain and right-sided numbness. The right-side numbness was due to a "Transient ischemic attack" -- also known as "TIA." A TIA is NOT a mini-stroke or stroke. However, a TIA is a risk factor for future stroke. Your MRI of the brain did NOT show a stroke. You were seen by neurology and they have recommended you take plavix for prevention of a future TIA or stroke. We also recommend blood pressure medication, cholesterol medication, and smoking cessation. These are all things that can reduce the chances of a future neurological event. With respect to your chest pain this was NOT due to a heart attack. All of your blood work for the heart was normal. Your echocardiogram of the heart was normal. Your pain was brought on by pushing on the chest wall -- this is consistent with musculoskeletal chest wall pain from costochondritis. The pain improved with anti-inflammatory medication. At this time we recommend - 1. Restart plavix (clopidogrel) for prevention of TIA/stroke and prevention of heart attack. Take every day. Start this TOMORROW morning. 2. Take atorvastatin 40mg once daily for cholesterol. Start this TODAY. 3. Take a B12 supplement and a folic acid supplement. Prescriptions sent in for these to [facility]. You are deficient on both vitamins. 4. Take a thiamine supplement twice daily for 1 month. Prescription sent in. 5. Take prednisone 30mg once daily for 5 days starting TODAY. This is to treat your chest wall pain. If you cannot tolerate the prednisone simply stop it and take [id number] alleve 1 tablet twice a day for 5 days. 6. You have underactive thyroid (hypothyroidism). Restart synthroid (levothyroxine) 25mcg once daily. Start this TOMORROW MORNING. 7. Take an acid clamper for reflux and for stomach protection. Take pantoprazole 40mg once daily. Start this TODAY. 8. Please talk to your doctors about ways in which you can stop alcohol intake and stop tobacco use. 9. Follow-up - * see Dr Mary within 1-2 weeks * see Dr Wright - psychiatry - as soon as possible; you will have to set this up on your own * see Dr Ochoa as scheduled 10. Return to [facility] if - * you have fevers over 100.5 degrees * you have worsening shortness of breath or chest pains * you have recurrent weakness or numbness of any limb, difficulty speaking, difficulty swallowing or walking, etc * you have thoughts of hurting yourself or any one else * any other concerns Risk Factors for Stroke: You can reduce your chances of stroke by working with your medical provider to adopt a healthy lifestyle. Some specific ways to lower your chance of stroke are: * If you are a smoker, now is the time to stop smoking cigarettes * If you are diabetic, improve the control of your blood sugars * Avoid excessive amounts of alcohol * Control high blood pressure * Lose weight if you are overweight * Be sure to lead an active lifestyle * Eat a healthy diet low in salt, cholesterol and fat You should know about other risk factors for stroke that you are unable to control. These include: * Age 55 years or older * Male gender * Certain racial groups: , or / * Family History of Stroke, Mini stroke or Heart Attack * Sickle Cell Disease Follow Up: It is important for you to keep your follow up appointments with your medical provider. Who to Call and When: Medical Emergencies: Call 911 immediately if you experience any of the following warning signs and symptoms of Stroke: * Sudden numbness or weakness of the face, arm or leg, especially on one side of the body * Sudden confusion, trouble speaking or understanding * Sudden trouble seeing in one or both eyes * Sudden trouble walking, dizziness, loss of balance or coordination * Sudden severe headache with no cause Do not delay calling 911 if you experience any warning signs or symptoms of a stroke. Delay in seeking medical attention may affect what treatments can be given to you. . Prescriptions: New clopidogrel 75 mg Tablet 75 mg PO QAM Qty: 30 RF: 1 levothyroxine [Synthroid] 25 mcg Tablet 25 mcg PO DAILYBB Qty: 30 RF: 1 cyanocobalamin (vitamin B-12) [Vitamin B-12] 500 mcg Tablet 1,000 mcg PO QAM Qty: 90 RF: 3 folic acid 1 mg Tablet 1 mg PO QAM Qty: 30 RF: 0 thiamine HCl (vitamin B1) 250 mg tablet 250 mg PO BID Qty: 60 RF: 0 metoprolol succinate 25 mg tablet extended release 24 hr 25 mg PO DAILY Qty: 30 RF: 1 atorvastatin 40 mg tablet 40 mg PO DAILY Qty: 30 RF: 1 pantoprazole 40 mg tablet,delayed release (DR/EC) 40 mg PO QAM Qty: 30 RF: 1 nitroglycerin 0.4 mg tablet, sublingual 0.4 mg sublingual Q5M PRN (Reason: chest pain) Qty: 1 RF: 0 Continued No Known Home Medications RF: 0 Stand-Alone Forms: [facility]/Other Patient Handouts: ED Chest Pain Costochondritis, ED Transient Ischemic Attack Discharge Orders: Discharge Order (Routine); Ordered 01/09/19 Ordered By: Duncan Carey Admission Data Admit Date/Time: 01/08/19 21:00 Attending Provider: Duncan Carey Admit Provider: [facility] Primary Care Provider: Juan Carlos Martinez V. Other Providers: [facility] ; Maldonado Young III ; Gertrude Ledbetter Service: Telemetry Other Interventions: Discharge Summary Assessment (RN) Last Done: 01/09/19 14:47 Pending Studies at Discharge: No DC Date/Time DO NOT enter until pt leaves facility: 01/09/19 15:32
== END 2019-01-09 15:32 | disposition home or self-care (01) ==
LOC: ED 17:39 → 2E 17:39 → SUATTDRO 21:00 → 2E 21:12

== ENCOUNTER 2019-02-19 10:50 | Inpatient (IN) ==
[2019-02-19] MEDS ORDERED: SODIUM CHLORIDE 0.9% 1000ML 1,000 ML IV ONE (11:19)
[2019-02-19 11:49] LABS: Basophils # (auto) 0.03 K/uL (0-0.2); Basophils % (auto) 0.3 %; Eosinophils # (auto) 0.03 K/uL (0-0.5); Eosinophils % (auto) 0.3 %; Hematocrit (blood only) 42.9 % (37-47); Hemoglobin 15.5 g/dL (12.0-16.0); Immature Granulocytes # (auto) 0.02 K/uL (0.00-0.02); Immature Granulocytes % (auto) 0.2 %; Lymphocytes # (auto) 1.42 K/uL (1.2-3.4); Lymphocytes % (auto) 13.8 %; Mean Corpuscular Hgb Conc 36.1 g/dL (32-36); Mean Corpuscular Volume 83.5 fL (80-100); Mean Platelet Volume 11.1 fL (7.4-10.4); Monocytes # (auto) 0.54 K/uL (0.11-0.59); Monocytes % (auto) 5.2 %; Neutrophils # (auto) 8.26 K/uL (1.4-6.5); Neutrophils % (auto) 80.2 %; Platelet Count 271 K/uL (130-400); RDW Standard Deviation 46.5 fL (36.4-46.3); Red Blood Count 5.14 M/uL (4.2-5.4)
[2019-02-19 12:04] LABS: Appearance Urine Turbid (Clear); Bacteria Urine Automated 2+ (Negative); Blood Urine Trace (Negative); Color Urine Dark Yellow; Epithelial Cell Urine Auto >30 /lpf (0-5); Glucose Urine UA Negative (Negative); Ketones Urine 2+ (Negative); Leukocyte Esterase Urine 1+ (Negative); Nitrite Urine Negative (Negative); Protein Urine 2+ (Negative); RBC Urine Automated 0-4 /hpf (0-4); Specific Gravity Urine 1.019 (1.000-1.030); Urobilinogen Urine Negative (Negative); WBC Urine Automated >30 /hpf (0-5); pH Urine 5.5 (4.5-7.5)
[2019-02-19 12:07] LABS: Albumin Level 4.2 gm/dl (3.4-5.0); BUN Creatinine Ratio 6.7 (10-20); Calcium 9.6 mg/dl (8.5-10.1); Est GFR (African American) 77.2; Est GFR (Non-African American) 66.6; Magnesium 1.9 mg/dl (1.8-2.4); Potassium 3.1 mmol/L (3.5-5.1)
[2019-02-19 12:12] LABS: Bilirubin Urine Negative (Negative); Ictotest Urine Negative (Negative)
[2019-02-19 12:13] LABS: Acetaminophen < 2 ug/ml (10-30); Salicylate 2.8 mg/dl (2.8-20)
[2019-02-19 12:17] LABS: Albumin Globulin Ratio 1.2 (0.9-2); Globulin 3.5 gm/dl (2.5-4.0); Total Protein 7.7 gm/dl (6.4-8.2)
[2019-02-19 12:35] LABS: Mucus Urine Present (None Prsent)
[2019-02-19 12:53] LABS: Amphetamines+Metham, Urine Neg (Neg); Barbiturates, Urine Neg (Neg); Benzodiazepine, Urine Neg (Neg); Cocaine, Urine Neg (Neg); MDMA (Ecstacy), Urine Pos (Neg); Methadone, Urine Neg (Neg); Opiate, Urine Neg (Neg); Phencyclidine, Urine Neg (Neg)
[2019-02-19] MEDS ORDERED: NITROGLYCERIN SL 0.4 MG/TAB TAB SL PRN (14:33)
[2019-02-19] MEDS ORDERED: ACETAMINOPHEN 325 MG TAB PO PRN (14:33)
[2019-02-19] MEDS ORDERED: ALUMINUM/MAGNESIUM SUSP 30 ML UDC PO PRN (14:33)
[2019-02-19] MEDS: SODIUM CHLORIDE 0.9% 1000ML 1,000 ML IV SCH (15:00)
[2019-02-19] MEDS ORDERED: MAGNESIUM SULFATE / D5W 1 GM/100 ML BAG IV ONE (16:30)
[2019-02-19] MEDS: POTASSIUM CHLORIDE / WTR 10 MEQ/100 ML PLCT IV SCH ×2 (16:39→18:39)
--- NOTE | 2019-02-19 16:44 | Emergency Department Note ---
Entered by Staci Enriquez acting as a scribe for History of Present Illness General Chief complaint: Overdose (Intentional) Stated complaint: PILL OVERDOSE Time Seen by Provider: 02/19/19 11:03 History of Present Illness Onset (ago): hour(s) 1 Location: abdomen Pain Consistency: + other (episode) Quality: + other (intentional overdose) Relieved By: + none Associated symptoms: + denies other symptoms (fall or trauma) and + nausea/vomiting Treatments prior to arrival: none The patient is a 48 year old female who presents to the ED complaining of an episode of an intentional overdose that occurred one hour ago. She states that this was intentional, and she did this to try and harm herself. Per the pat pam's friend, at bedside, the patient vomited up a lot of pills GRAVEDIGGER. She denies any fall or trauma. The patient states that she did not take any Tylenol or Aspirin GRAVEDIGGER. She denies any chance of . The friend states that the patient emptied a pill bottle filled 6 days ago with 30 pills of 100 mg Trazodone. The friend states that she emptied another pill bottle filled 6 weeks ago with 120 pills of 100 mg Hydroxyzine. He notes that he does not know how many pills she ingested. Home Medications Home Medications Medication Instructions Recorded Confirmed Type clopidogrel 75 mg PO QAM #30 tab 01/09/19 02/19/19 Rx cyanocobalamin (vitamin B-12) 1,000 mcg PO QAM #90 tab 01/09/19 02/19/19 Rx [Vitamin B-12] folic acid 1 mg PO QAM #30 tab 01/09/19 02/19/19 Rx levothyroxine [Synthroid] 25 mcg PO DAILYBB #30 tab 01/09/19 02/19/19 Rx metoprolol succinate 25 mg PO DAILY #30 tab 01/09/19 02/19/19 Rx nitroglycerin 0.4 mg SUBLINGUAL Q5M PRN #1 btl 01/09/19 02/19/19 Rx pantoprazole 40 mg PO QAM #30 tab 01/09/19 02/19/19 Rx thiamine HCl (vitamin B1) 250 mg PO BID #60 tab 01/09/19 02/19/19 Rx atorvastatin 40 mg PO HS 02/19/19 02/19/19 Rx benztropine 0.5 mg PO TID 02/19/19 02/19/19 History buspirone 5 mg PO BID 02/19/19 02/19/19 History duloxetine 30 mg PO DAILY 02/19/19 02/19/19 History gabapentin 200 mg PO HS 02/19/19 02/19/19 History haloperidol 10 mg PO HS 02/19/19 02/19/19 History hydroxyzine pamoate 200 mg PO BID 02/19/19 02/19/19 History lisinopril 5 mg PO DAILY 02/19/19 02/19/19 History trazodone 100 mg PO HS 02/19/19 02/19/19 History ziprasidone HCl 20 mg PO BID 02/19/19 02/19/19 History Allergies Allergy/AdvReac Type Severity Reaction Status Date / Time No Known Allergies Allergy Verified 02/19/19 14:04 Past Med/Surg History Medical History History of stroke STEMI (ST elevation myocardial infarction) (Acute) Medical non-compliance (Acute) Schizoaffective disorder, depressive type (Chronic) Surgical History H/O heart artery stent Family History Mother Diabetes Father , age 70 of pancreatic cancer. 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 Feels Safe at Home: No Is there a partner from a previous relationship who is making you feel unsafe now?: No Any Concerns about Your Family Situation: No (patient states "they're safe, im not") Would You Like to Speak to Someone About Your Situation: No Safety Concerns: Afraid for Self Smoking Status: Current every day smoker Tobacco Type: cigarettes Cigarettes Per Day: 2-3 Do You Dip or Chew Tobacco: No Second Hand Exposure: No Tobacco Cessation Education Requested by Patient: No Hx Alcohol Use: Yes Alcohol type: beer Alcohol Intake Frequency Comment: Three 32 ounce cans of Monae Light beer per day Hx Substance Use: No Review of Systems See HPI for pertinent positives & negatives. and A total of 10 systems reviewed and were otherwise negative Physical Exam Vital Signs Vital Signs - 24 hr 02/19/19 10:50 02/19/19 10:51 02/19/19 11:15 Temperature 36.5 C Temperature Source Oral Sepsis Recent Fever Within 48 Hours No Sepsis New/Unexplained Change in Mental Status No Sepsis Action Taken by Nursing No Action Required Pulse Rate 78 89 Pulse Rate [Apical] Pulse Rate from SpO2 Sensor 48 L Pulse Rhythm [Apical] Pulse Strength [Apical] Respiratory Rate 18 26 H Respiratory Effort / Characteristics Respiratory Depth Normal Respiratory Pattern Blood Pressure 105/66 111/57 L Blood Pressure [Left Arm] Blood Pressure Mean 79 75 Blood Pressure Mean [Left Arm] Blood Pressure Position [Left Arm] Pulse Oximetry 97 99 Oxygen Delivery Method Room Air Room Air 02/19/19 11:21 02/19/19 11:30 02/19/19 11:40 Temperature Temperature Source Sepsis Recent Fever Within 48 Hours Sepsis New/Unexplained Change in Mental Status Sepsis Action Taken by Nursing Pulse Rate 83 77 121 H Pulse Rate [Apical] Pulse Rate from SpO2 Sensor 49 L 70 88 Pulse Rhythm [Apical] Pulse Strength [Apical] Respiratory Rate 25 H 20 23 Respiratory Effort / Characteristics Respiratory Depth Respiratory Pattern Blood Pressure Blood Pressure [Left Arm] Blood Pressure Mean Blood Pressure Mean [Left Arm] Blood Pressure Position [Left Arm] Pulse Oximetry 99 100 98 Oxygen Delivery Method 02/19/19 11:48 02/19/19 11:50 02/19/19 12:00 Temperature Temperature Source Sepsis Recent Fever Within 48 Hours Sepsis New/Unexplained Change in Mental Status Sepsis Action Taken by Nursing Pulse Rate 78 82 74 Pulse Rate [Apical] Pulse Rate from SpO2 Sensor 79 76 79 Pulse Rhythm [Apical] Pulse Strength [Apical] Respiratory Rate 24 24 20 Respiratory Effort / Characteristics Respiratory Depth Respiratory Pattern Blood Pressure 141/113 H Blood Pressure [Left Arm] Blood Pressure Mean 122 Blood Pressure Mean [Left Arm] Blood Pressure Position [Left Arm] Pulse Oximetry 100 100 100 Oxygen Delivery Method 02/19/19 12:01 02/19/19 12:02 02/19/19 12:10 Temperature Temperature Source Sepsis Recent Fever Within 48 Hours Sepsis New/Unexplained Change in Mental Status Sepsis Action Taken by Nursing Pulse Rate 82 79 72 Pulse Rate [Apical] Pulse Rate from SpO2 Sensor 76 76 73 Pulse Rhythm [Apical] Pulse Strength [Apical] Respiratory Rate 28 H 18 19 Respiratory Effort / Characteristics Respiratory Depth Respiratory Pattern Blood Pressure 144/88 H Blood Pressure [Left Arm] Blood Pressure Mean 106 Blood Pressure Mean [Left Arm] Blood Pressure Position [Left Arm] Pulse Oximetry 99 100 100 Oxygen Delivery Method 02/19/19 12:16 02/19/19 12:20 02/19/19 12:30 Temperature Temperature Source Sepsis Recent Fever Within 48 Hours Sepsis New/Unexplained Change in Mental Status Sepsis Action Taken by Nursing Pulse Rate 76 80 89 Pulse Rate [Apical] Pulse Rate from SpO2 Sensor 76 76 87 Pulse Rhythm [Apical] Pulse Strength [Apical] Respiratory Rate 18 32 H 17 Respiratory Effort / Characteristics Respiratory Depth Respiratory Pattern Blood Pressure 148/102 H Blood Pressure [Left Arm] Blood Pressure Mean 117 Blood Pressure Mean [Left Arm] Blood Pressure Position [Left Arm] Pulse Oximetry 100 100 98 Oxygen Delivery Method 02/19/19 12:32 02/19/19 12:40 02/19/19 12:45 Temperature Temperature Source Sepsis Recent Fever Within 48 Hours Sepsis New/Unexplained Change in Mental Status Sepsis Action Taken by Nursing Pulse Rate 84 83 82 Pulse Rate [Apical] Pulse Rate from SpO2 Sensor 83 82 81 Pulse Rhythm [Apical] Pulse Strength [Apical] Respiratory Rate 17 21 15 Respiratory Effort / Characteristics Respiratory Depth Respiratory Pattern Blood Pressure 150/80 H 154/91 H Blood Pressure [Left Arm] Blood Pressure Mean 103 112 Blood Pressure Mean [Left Arm] Blood Pressure Position [Left Arm] Pulse Oximetry 97 98 98 Oxygen Delivery Method 02/19/19 12:50 02/19/19 12:58 02/19/19 13:00 Temperature Temperature Source Sepsis Recent Fever Within 48 Hours Sepsis New/Unexplained Change in Mental Status Sepsis Action Taken by Nursing Pulse Rate 81 84 96 H Pulse Rate [Apical] Pulse Rate from SpO2 Sensor 82 79 86 Pulse Rhythm [Apical] Pulse Strength [Apical] Respiratory Rate 23 19 16 Respiratory Effort / Characteristics Respiratory Depth Respiratory Pattern Blood Pressure 159/97 H Blood Pressure [Left Arm] Blood Pressure Mean 117 Blood Pressure Mean [Left Arm] Blood Pressure Position [Left Arm] Pulse Oximetry 98 98 96 Oxygen Delivery Method 02/19/19 13:01 02/19/19 13:02 02/19/19 13:10 Temperature Temperature Source Sepsis Recent Fever Within 48 Hours Sepsis New/Unexplained Change in Mental Status Sepsis Action Taken by Nursing Pulse Rate 88 87 Pulse Rate [Apical] 85 Pulse Rate from SpO2 Sensor 87 77 Pulse Rhythm [Apical] Pulse Strength [Apical] Respiratory Rate 13 20 21 Respiratory Effort / Characteristics Non-Labored Respiratory Depth Normal Respiratory Pattern Blood Pressure 147/81 H Blood Pressure [Left Arm] 147/81 H Blood Pressure Mean 103 Blood Pressure Mean [Left Arm] 103 Blood Pressure Position [Left Arm] Pulse Oximetry 99 95 98 Oxygen Delivery Method Room Air 02/19/19 13:15 02/19/19 13:20 02/19/19 13:30 Temperature Temperature Source Sepsis Recent Fever Within 48 Hours Sepsis New/Unexplained Change in Mental Status Sepsis Action Taken by Nursing Pulse Rate 87 86 82 Pulse Rate [Apical] Pulse Rate from SpO2 Sensor 86 81 86 Pulse Rhythm [Apical] Pulse Strength [Apical] Respiratory Rate 20 16 21 Respiratory Effort / Characteristics Respiratory Depth Respiratory Pattern Blood Pressure 141/78 H 141/86 H Blood Pressure [Left Arm] Blood Pressure Mean 99 104 Blood Pressure Mean [Left Arm] Blood Pressure Position [Left Arm] Pulse Oximetry 98 98 99 Oxygen Delivery Method 02/19/19 13:40 02/19/19 14:30 02/19/19 14:32 Temperature 36.9 C 36.9 C Temperature Source Oral Oral Sepsis Recent Fever Within 48 Hours Sepsis New/Unexplained Change in Mental Status Sepsis Action Taken by Nursing Pulse Rate 80 Pulse Rate [Apical] 75 75 Pulse Rate from SpO2 Sensor 75 Pulse Rhythm [Apical] Regular Pulse Strength [Apical] Normal Respiratory Rate 19 18 18 Respiratory Effort / Characteristics Non-Labored Respiratory Depth Normal Respiratory Pattern Regular Blood Pressure Blood Pressure [Left Arm] 126/80 126/80 Blood Pressure Mean Blood Pressure Mean [Left Arm] 95 95 Blood Pressure Position [Left Arm] Lying Pulse Oximetry 98 98 98 Oxygen Delivery Method Room Air Room Air GENERAL: Lethargic HENT: Exam performed. -Head: Normocephalic and atraumatic. -Right Ear: External ear normal. No mastoid tenderness. -Left Ear: External ear normal. No mastoid tenderness. -Mouth/Throat: The oropharynx is clear and moist. No trismus in the jaw. No dental abscesses or uvula swelling. No oropharyngeal exudate or tonsillar abscesses. EYES: Conjunctivae and EOM are normal. Pupils are equal, round, and reactive to light. Right eye exhibits no discharge. Left eye exhibits no discharge. No scleral icterus. NECK: Normal range of motion. Neck supple. No JVD present. No spinous process tenderness present. No carotid bruit present. No rigidity. No tracheal deviation and normal range of motion present. No Brudzinski's sign and no Kernig's sign noted. CV: Normal rate, regular rhythm, normal heart sounds and intact distal pulses. There is no peripheral edema. Palpable radial pulses bue. PULM/CHEST: Effort normal and breath sounds normal. No respiratory distress. No stridor. She has no wheezes. She has no rales. Chest Wall: She exhibits no tenderness. ABD: The abdomen is soft. Bowel sounds are normal. She has no distension. No mass is present. There is no tenderness. There is no rebound, no guarding, no Muhammad's sign and no tenderness at McBurney's point. Rovsig negative MUSC/SKEL: Normal range of motion. There is no peripheral edema, tenderness or deformity. LYMPH: No cervical adenopathy. NEURO: Motor and sensation grossly intact. SKIN: Skin is warm and dry. She is not diaphoretic. PSYCH: She has a normal mood and affect. Her behavior is normal. Judgment and thought content normal. Course 1110: The patient was evaluated in room A07. A complete history and physical exam was performed. 1118: I spoke with Natalio of [facility] control about the patients case. He said that this overdose can cause RN PROCEDURE depression. Natalio recommended making sure that her magnesium is greater than 2. He advised against using charcoal and any antipsychotic medication. He said that using benzodiazepines was okay. He states that the patient needs at least 24 hours of monitoring and EKGs every 6 hours. 1230: I reevaluated the patient. Her vitals signs were stable, and her labs were within normal limits. Magnesium 1.9. Patient will be admitted for continued overdose as well as serial EKGs. I spoke with Dr. Cosme, [facility] hospitalist, about the patient's case. He will further evaluate the patient. Admitting team will keep the patient on telemetry and continue to monitor. They will continue to conduct EKGs every 6 hours and recheck magnesium level. Consultations Consultation #1: I spoke with Natalio of [facility] control about the patients case. He said that this overdose can cause RN PROCEDURE depression. Natalio recommended making sure that her magnesium is greater than 2. He advised against using charcoal and any antipsychotic medication. He said that using benzodiazepines was okay Time: 11:18 Consultation #2: I spoke with Dr. Cosme, [facility] hospitalist, about the patient's case. He will further evaluate the patient. Time: 12:36 Administered Medications Sodium Chloride (Nss 1000ml) 1,000 mls @ 100 mls/hr IV .Q10H NILSON Stop: 03/21/19 14:32 Last Admin: 02/19/19 15:00 Dose: 100 mls/hr Documented by: [id number] Magnesium Sulfate/Dextrose (Magnesium Sulfate / D5w) 1 gm in 100 mls @ 100 mls/hr IV ONE ONE Stop: 02/19/19 17:29 Last Admin: 02/19/19 16:39 Dose: 100 mls/hr Documented by: [id number] Potassium Chloride (K Santiago / Wtr) 10 meq in 100 mls @ 100 mls/hr IV Q1H NILSON Stop: 02/19/19 18:29 Last Admin: 02/19/19 16:39 Dose: 100 mls/hr Documented by: [id number] Discontinued Medications Sodium Chloride (Nss 1000ml) 1,000 mls @ 999 mls/hr IV .Q1H1M ONE Stop: 02/19/19 12:19 Last Infusion: 02/19/19 13:03 Dose: 0 mls/hr Documented by: [id number] Admin: 02/19/19 11:51 Dose: 999 mls/hr Documented by: [id number] Medical Decision Making Medical Records Attestation: I reviewed the patient's medical records. Home Medications Current Medication List: was personally reviewed by me Laboratory Data Attestation: I reviewed the patient's lab results. Result diagrams: 02/19/19 11:18 02/19/19 11:18 Lab Results 02/19/19 02/19/19 02/19/19 Range/Units 11:18 11:18 11:18 WBC 10.30 (4.8-10.8) K/uL RBC 5.14 (4.2-5.4) M/uL Hgb 15.5 (12.0-16.0) g/dL Hct 42.9 (37-47) % MCV 83.5 (80-100) fL MCH 30.2 (25-34) pg MCHC 36.1 H (32-36) g/dL RDW Std Deviation 46.5 H (36.4-46.3) fL RDW Coeff of Brooke 15.0 H (11.5-14.5) % Plt Count 271 (130-400) K/uL MPV 11.1 H (7.4-10.4) fL Immature Gran % (Auto) 0.2 % Neut % (Auto) 80.2 % Lymph % (Auto) 13.8 % Stafford % (Auto) 5.2 % Eos % (Auto) 0.3 % Baso % (Auto) 0.3 % Immature Gran # (Auto) 0.02 (0.00-0.02) K/uL Neut # (Auto) 8.26 H (1.4-6.5) K/uL Lymph # (Auto) 1.42 (1.2-3.4) K/uL Stafford # (Auto) 0.54 (0.11-0.59) K/uL Eos # (Auto) 0.03 (0-0.5) K/uL Baso # (Auto) 0.03 (0-0.2) K/uL Sodium 138 (136-145) mmol/L Potassium 3.1 L (3.5-5.1) mmol/L Chloride 102 (98-107) mmol/L Carbon Dioxide 23 (21-32) mmol/L Anion Gap 13.0 H (3-11) BUN 7 (7-18) mg/dl Creatinine 1.00 (0.6-1.2) mg/dl Est Cr Clr Drug Dosing 76.0 ml/min Est GFR ( Amer) 77.2 Est GFR (Non-Af Amer) 66.6 BUN/Creatinine Ratio 6.7 L (10-20) Glucose 146 H (70-99) mg/dl POC Glucose (70-99) Calcium 9.6 (8.5-10.1) mg/dl Magnesium 1.9 (1.8-2.4) mg/dl Total Bilirubin 1.0 (0.2-1) mg/dl AST 34 (15-37) U/L ALT 39 (12-78) U/L Alkaline Phosphatase 145 H (45-117) U/L Total Creatine Kinase 114 (26-192) U/L Total Protein 7.7 (6.4-8.2) gm/dl Albumin 4.2 (3.4-5.0) gm/dl Globulin 3.5 (2.5-4.0) gm/dl Albumin/Globulin Ratio 1.2 (0.9-2) TSH 0.675 (0.300-4.500) uIu/ml Urine Color Urine Appearance (Clear) Urine pH (4.5-7.5) Ur Specific Lee (1.000-1.030) Urine Protein (Negative) Urine Glucose (UA) (Negative) Urine Ketones (Negative) Urine Blood (Negative) Urine Nitrite (Negative) Urine Bilirubin (Negative) Urine Urobilinogen (Negative) Ur Leukocyte Esterase (Negative) Urine WBC (Auto) (0-5) /hpf Urine RBC (Auto) (0-4) /hpf U Hyaline Cast (Auto) (0-5) /lpf U Epithel Cells (Auto) (0-5) /lpf Urine Bacteria (Auto) (Negative) Urine Mucus (None Prsent) Urine Yeast Salicylates 2.8 (2.8-20) mg/dl Urine Opiates Screen (Neg) Ur Methadone, Qual (Neg) Acetaminophen < 2 L (10-30) ug/ml Urine Barbiturates (Neg) Ur Phencyclidine (PCP) (Neg) U Amphetamin/Meth Scrn (Neg) MDMA (Ecstasy) Screen (Neg) U Benzodiazepines Scrn (Neg) Ur Cocaine Metabolite (Neg) U Marijuana (THC) Screen (Neg) Ethyl Alcohol mg/dL (0-3) mg/dl 02/19/19 02/19/19 02/19/19 Range/Units 11:18 11:22 11:45 WBC (4.8-10.8) K/uL RBC (4.2-5.4) M/uL Hgb (12.0-16.0) g/dL Hct (37-47) % MCV (80-100) fL MCH (25-34) pg MCHC (32-36) g/dL RDW Std Deviation (36.4-46.3) fL RDW Coeff of Brooke (11.5-14.5) % Plt Count (130-400) K/uL MPV (7.4-10.4) fL Immature Gran % (Auto) % Neut % (Auto) % Lymph % (Auto) % Stafford % (Auto) % Eos % (Auto) % Baso % (Auto) % Immature Gran # (Auto) (0.00-0.02) K/uL Neut # (Auto) (1.4-6.5) K/uL Lymph # (Auto) (1.2-3.4) K/uL Stafford # (Auto) (0.11-0.59) K/uL Eos # (Auto) (0-0.5) K/uL Baso # (Auto) (0-0.2) K/uL Sodium (136-145) mmol/L Potassium (3.5-5.1) mmol/L Chloride (98-107) mmol/L Carbon Dioxide (21-32) mmol/L Anion Gap (3-11) BUN (7-18) mg/dl Creatinine (0.6-1.2) mg/dl Est Cr Clr Drug Dosing ml/min Est GFR ( Amer) Est GFR (Non-Af Amer) BUN/Creatinine Ratio (10-20) Glucose (70-99) mg/dl POC Glucose 145 H (70-99) Calcium (8.5-10.1) mg/dl Magnesium (1.8-2.4) mg/dl Total Bilirubin (0.2-1) mg/dl AST (15-37) U/L ALT (12-78) U/L Alkaline Phosphatase (45-117) U/L Total Creatine Kinase (26-192) U/L Total Protein (6.4-8.2) gm/dl Albumin (3.4-5.0) gm/dl Globulin (2.5-4.0) gm/dl Albumin/Globulin Ratio (0.9-2) TSH (0.300-4.500) uIu/ml Urine Color Urine Appearance (Clear) Urine pH (4.5-7.5) Ur Specific Lee (1.000-1.030) Urine Protein (Negative) Urine Glucose (UA) (Negative) Urine Ketones (Negative) Urine Blood (Negative) Urine Nitrite (Negative) Urine Bilirubin (Negative) Urine Urobilinogen (Negative) Ur Leukocyte Esterase (Negative) Urine WBC (Auto) (0-5) /hpf Urine RBC (Auto) (0-4) /hpf U Hyaline Cast (Auto) (0-5) /lpf U Epithel Cells (Auto) (0-5) /lpf Urine Bacteria (Auto) (Negative) Urine Mucus (None Prsent) Urine Yeast Salicylates (2.8-20) mg/dl Urine Opiates Screen Neg (Neg) Ur Methadone, Qual Neg (Neg) Acetaminophen (10-30) ug/ml Urine Barbiturates Neg (Neg) Ur Phencyclidine (PCP) Neg (Neg) U Amphetamin/Meth Scrn Neg (Neg) MDMA (Ecstasy) Screen Pos H (Neg) U Benzodiazepines Scrn Neg (Neg) Ur Cocaine Metabolite Neg (Neg) U Marijuana (THC) Screen Neg (Neg) Ethyl Alcohol mg/dL < 3.0 (0-3) mg/dl 02/19/19 Range/Units 11:45 WBC (4.8-10.8) K/uL RBC (4.2-5.4) M/uL Hgb (12.0-16.0) g/dL Hct (37-47) % MCV (80-100) fL MCH (25-34) pg MCHC (32-36) g/dL RDW Std Deviation (36.4-46.3) fL RDW Coeff of Brooke (11.5-14.5) % Plt Count (130-400) K/uL MPV (7.4-10.4) fL Immature Gran % (Auto) % Neut % (Auto) % Lymph % (Auto) % Stafford % (Auto) % Eos % (Auto) % Baso % (Auto) % Immature Gran # (Auto) (0.00-0.02) K/uL Neut # (Auto) (1.4-6.5) K/uL Lymph # (Auto) (1.2-3.4) K/uL Stafford # (Auto) (0.11-0.59) K/uL Eos # (Auto) (0-0.5) K/uL Baso # (Auto) (0-0.2) K/uL Sodium (136-145) mmol/L Potassium (3.5-5.1) mmol/L Chloride (98-107) mmol/L Carbon Dioxide (21-32) mmol/L Anion Gap (3-11) BUN (7-18) mg/dl Creatinine (0.6-1.2) mg/dl Est Cr Clr Drug Dosing ml/min Est GFR ( Amer) Est GFR (Non-Af Amer) BUN/Creatinine Ratio (10-20) Glucose (70-99) mg/dl POC Glucose (70-99) Calcium (8.5-10.1) mg/dl Magnesium (1.8-2.4) mg/dl Total Bilirubin (0.2-1) mg/dl AST (15-37) U/L ALT (12-78) U/L Alkaline Phosphatase (45-117) U/L Total Creatine Kinase (26-192) U/L Total Protein (6.4-8.2) gm/dl Albumin (3.4-5.0) gm/dl Globulin (2.5-4.0) gm/dl Albumin/Globulin Ratio (0.9-2) TSH (0.300-4.500) uIu/ml Urine Color Dark Yellow Urine Appearance Turbid A (Clear) Urine pH 5.5 (4.5-7.5) Ur Specific Lee 1.019 (1.000-1.030) Urine Protein 2+ H (Negative) Urine Glucose (UA) Negative (Negative) Urine Ketones 2+ H (Negative) Urine Blood Trace H (Negative) Urine Nitrite Negative (Negative) Urine Bilirubin Negative (Negative) Urine Urobilinogen Negative (Negative) Ur Leukocyte Esterase 1+ H (Negative) Urine WBC (Auto) >30 H (0-5) /hpf Urine RBC (Auto) 0-4 (0-4) /hpf U Hyaline Cast (Auto) 1-5 (0-5) /lpf U Epithel Cells (Auto) >30 H (0-5) /lpf Urine Bacteria (Auto) 2+ H (Negative) Urine Mucus Present A (None Prsent) Urine Yeast Not Reportable Salicylates (2.8-20) mg/dl Urine Opiates Screen (Neg) Ur Methadone, Qual (Neg) Acetaminophen (10-30) ug/ml Urine Barbiturates (Neg) Ur Phencyclidine (PCP) (Neg) U Amphetamin/Meth Scrn (Neg) MDMA (Ecstasy) Screen (Neg) U Benzodiazepines Scrn (Neg) Ur Cocaine Metabolite (Neg) U Marijuana (THC) Screen (Neg) Ethyl Alcohol mg/dL (0-3) mg/dl ECG Data Attestation: I personally reviewed and interpreted this ECG as follows: Indication: toxicologic Rate (beats per minute): 79 Rhythm: sinus with SA Findings: + other (CO is 134, QRS is 104, QTC is 665) and + PVC; no ST depression and no ST elevation Comparison ECG Date: from (02/19/2019) Change: the following changes noted (CO, QRS, and QTc within normal limits; no ST elevation or depression; Sinus rhythm; 81 BPM ) Blood Pressure Blood Pressure Findings: Elevated blood pressure Blood Pressure Disposition: further management by hospitalist [facility] Narrative 1110: The patient was evaluated in room A07. A complete history and physical exam was performed. 1118: I spoke with Natalio of [facility] about the patients case. He said that this overdose can cause RN PROCEDURE depression. Natalio recommended making sure that her magnesium is greater than 2. He advised against using charcoal and any antipsychotic medication. He said that using benzodiazepines was okay. He states that the patient needs at least 24 hours of monitoring and EKGs every 6 hours. 1230: I reevaluated the patient. Her vitals signs were stable, and her labs were within normal limits. Magnesium 1.9. Patient will be admitted for continued overdose as well as serial EKGs. I spoke with Dr. Cosme, [facility] hospitalist, about the patient's case. He will further evaluate the patient. Admitting team will keep the patient on telemetry and continue to monitor. They will continue to conduct EKGs every 6 hours and recheck magnesium level. Impression & Plan Overdose, Polysubstance overdose, Prolonged QT interval Discharge Plan Visit Data *Final* Discharge Date/Time: 02/19/19 14:07 Chief Complaint: Overdose (Intentional) Stated Complaint: PILL OVERDOSE ED Provider: Valdez Russ Discharge Problem: Overdose, Polysubstance overdose, Prolonged QT interval Patient Disposition: Admitted As Inpatient Discharge Instructions Interventions: ED Discharge Assessment Last Done: 02/19/19 14:07 Discharge Problem: Overdose Qualifiers: Encounter type: initial encounter Injury intent: intentional self-harm Qualified Code(s): T50.902A - Poisoning by unspecified drugs, medicaments and biological substances, intentional self-harm, initial encounter Polysubstance overdose Qualifiers: Encounter type: initial encounter Injury intent: intentional self-harm Qualified Code(s): T50.902A - Poisoning by unspecified drugs, medicaments and biological substances, intentional self-harm, initial encounter The scribe's documentation has been prepared under my direction and personally reviewed by me in its entirety. I confirm that the note above accurately reflects all work, treatment, procedures, and medical decision making performed by me.
--- NOTE | 2019-02-19 17:32 | Cardiology Consultation ---
Date of Consultation February 19, 2019 Assessment & Plan (1) Prolonged QT interval: QT is prolonged. Also had prolonged QT on 07/13/2016 ECG. Serial ECGs have been ordered by the primary service. Will resume home dose of metoprolol 25 mg twice daily. Monitor for ventricular arrhythmia. Hydroxyzine and trazodone can both cause QT prolongation. It is unclear how many hydroxyzine tablet she actually took, but she did vomit shortly after taking the pills and saw pills in her emesis so hopefully the majority of the pills have not been absorbed. (2) Coronary artery disease, occlusive: No angina. She has prior RCA PCI. She should continue with anti-platelet therapy without interruption. Will order aspirin 81 mg daily which is on her home medication list although she apparently has not been taking medications for several months. Plavix is also on her home list. If she has issues with aspirin, can continue Plavix in its place. From a pure cardiac perspective, she does not require dual anti-platelet therapy at this time. Resume high-intensity statin therapy. Resume beta-danica. (3) Hyperlipidemia LDL goal <70: Will restart high-intensity statin therapy. (4) Overdose: As per primary service. Psychiatric consultation is pending for her suicidal attempt. (5) Alcohol abuse: Refrain from alcohol and tobacco abuse. (6) Hypertension: Blood pressure was hypertensive however most recently normal. Resuming beta-danica. Can resume lisinopril if necessary. Disposition: Cardiology will continue to follow. Please call with any other questions or concerns. Thank you for allowing me to participate in the care of your patient. Please call for any other questions or concerns. Sincerely, Delta Alfred M.D. History of Present Illness Reason for Consultation: Prolonged QT Requesting Physician: Dr. Cosme Attending Physician: Oli Cosme MD History of Present Illness Ms. Alcala is a 48-year-old female with a history significant for CAD status post inferolateral OH and proximal RCA PCI, hypertension, dyslipidemia, and COPD. She had a suicide attempt earlier today when she took a bottle of hydroxyzine (unsure number of pills) and 6 or 7 trazodone 100 mg tablets. At approximately 10:30 a.m. to 11:00 a.m. she took the above pills in attempt to take her own life. Within a few minutes however she vomited and she admits that she saw several pills in her emesis. She was admitted and Cardiology was consulted due to prolonged QT on baseline ECG. She has palpitations from time to time, prior to today's event. She recalls angina feeling like something punching her in the chest when she had her myocardial infarction in 2013. She has not had any recent anginal symptoms. She has had some left-sided chest discomfort however when laying in bed, completely different than her angina. She denies shortness of breath, syncope, near- syncope, edema, or bleeding. She admits that she had TIA like symptoms approximately 1 month ago affecting the right side of her body. There is mention in outpatient notes that while admitted she had negative troponins x3. Compliance with outpatient follow-up has apparently been an issue according to her PCPs notes. Dr. Ochoa also documented that she had gone approximately 6 months without taking any of her medications. Review of systems: As above. Review of systems otherwise negative/unremarkable. Past medical history: 1. RCA OH 03/28/2014 2. Proximal RCA PCI 2.25 x 22 mm bare metal stent, post dilated with 2.75 noncompliant balloon. 3. CAD 4. Hypertension 5. Dyslipidemia 6. Anxiety disorder 7. Schizoaffective disorder 8. Possible TIA 2019 9. Multinodular goiter 10. Lumbar radiculopathy 11. Gastritis 12. Esophageal reflux 13. Alcohol abuse Social history: She has been smoking 0.5 packs per day recently. She consumes 32-64 oz of beer per day (1-2 32 oz cans). She denies illicit drugs. She lives at home with her son and boyfriend. She has another son who is incarcerated. There is no family or friends at the bedside. Family history: No known premature CAD. Allergies Allergy/AdvReac Type Severity Reaction Status Date / Time No Known Allergies Allergy Verified 02/19/19 14:04 Home Medications Home Medications Medication Instructions Recorded Confirmed Type clopidogrel 75 mg PO QAM #30 tab 01/09/19 02/19/19 Rx cyanocobalamin (vitamin B-12) 1,000 mcg PO QAM #90 tab 01/09/19 02/19/19 Rx [Vitamin B-12] folic acid 1 mg PO QAM #30 tab 01/09/19 02/19/19 Rx levothyroxine [Synthroid] 25 mcg PO DAILYBB #30 tab 01/09/19 02/19/19 Rx metoprolol succinate 25 mg PO DAILY #30 tab 01/09/19 02/19/19 Rx nitroglycerin 0.4 mg SUBLINGUAL Q5M PRN #1 btl 01/09/19 02/19/19 Rx pantoprazole 40 mg PO QAM #30 tab 01/09/19 02/19/19 Rx thiamine HCl (vitamin B1) 250 mg PO BID #60 tab 01/09/19 02/19/19 Rx atorvastatin 40 mg PO HS 02/19/19 02/19/19 Rx benztropine 0.5 mg PO TID 02/19/19 02/19/19 History buspirone 5 mg PO BID 02/19/19 02/19/19 History duloxetine 30 mg PO DAILY 02/19/19 02/19/19 History gabapentin 200 mg PO HS 02/19/19 02/19/19 History haloperidol 10 mg PO HS 02/19/19 02/19/19 History hydroxyzine pamoate 200 mg PO BID 02/19/19 02/19/19 History lisinopril 5 mg PO DAILY 02/19/19 02/19/19 History trazodone 100 mg PO HS 02/19/19 02/19/19 History ziprasidone HCl 20 mg PO BID 02/19/19 02/19/19 History Patient History Medical History History of stroke STEMI (ST elevation myocardial infarction) (Acute) Medical non-compliance (Acute) Schizoaffective disorder, depressive type (Chronic) Surgical History H/O heart artery stent Family History Mother Diabetes Father , age 70 of pancreatic cancer. 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 Feels Safe at Home: No Is there a partner from a previous relationship who is making you feel unsafe now?: No Any Concerns about Your Family Situation: No (patient states "they're safe, im not") Would You Like to Speak to Someone About Your Situation: No Safety Concerns: Afraid for Self Smoking Status: Current every day smoker Tobacco Type: cigarettes Cigarettes Per Day: 2-3 Do You Dip or Chew Tobacco: No Second Hand Exposure: No Tobacco Cessation Education Requested by Patient: No Hx Alcohol Use: Yes Alcohol type: beer Alcohol Intake Frequency Comment: Three 32 ounce cans of Monae Light beer per day Hx Substance Use: No Physical Exam Physical Exam: Gen.: No acute distress. Alert. HEENT: Anicteric sclera. Neck: No JVD. No bruits. Normal carotid upstrokes bilaterally. Cardiac: PMI was nondisplaced. No ventricular heave. Regular rate and rhythm. Normal S1-S2. No murmurs, rubs, or gallops. Pulmonary: Clear to auscultation bilaterally without wheezes, rales, or rhonchi. Abdomen: Soft, nontender, nondistended, with normoactive bowel sounds. No bruits noted. Extremities: 2+ radial pulses bilaterally. 2+ posterior tibialis pulses bilaterally. No edema or cyanosis. Psychiatric: Affect appears appropriate. Results & Data Vital Signs (Past 12 Hours) Vital Signs Temp Pulse Pulse Resp BP BP Pulse Ox 02/19/19 16:57 78 02/19/19 14:32 36.9 C 75 18 126/80 98 02/19/19 14:30 36.9 C 75 18 126/80 98 02/19/19 13:40 80 19 98 02/19/19 13:30 82 21 141/86 H 99 02/19/19 13:20 86 16 98 02/19/19 13:15 87 20 141/78 H 98 02/19/19 13:10 87 21 98 02/19/19 13:02 85 20 147/81 H 95 02/19/19 13:01 88 13 147/81 H 99 02/19/19 13:00 96 H 16 96 02/19/19 12:58 84 19 159/97 H 98 02/19/19 12:50 81 23 98 02/19/19 12:45 82 15 154/91 H 98 02/19/19 12:40 83 21 98 02/19/19 12:32 84 17 150/80 H 97 02/19/19 12:30 89 17 98 02/19/19 12:20 80 32 H 100 02/19/19 12:16 76 18 148/102 H 100 02/19/19 12:10 72 19 100 02/19/19 12:02 79 18 100 02/19/19 12:01 82 28 H 144/88 H 99 02/19/19 12:00 74 20 100 02/19/19 11:50 82 24 100 02/19/19 11:48 78 24 141/113 H 100 02/19/19 11:40 121 H 23 98 02/19/19 11:30 77 20 100 02/19/19 11:21 83 25 H 99 02/19/19 11:15 89 26 H 111/57 L 99 02/19/19 10:51 36.5 C 78 18 105/66 97 Laboratory Results Laboratory Results - last 24 hr 02/19/19 02/19/19 02/19/19 11:18 11:18 11:18 WBC 10.30 RBC 5.14 Hgb 15.5 Hct 42.9 MCV 83.5 MCH 30.2 MCHC 36.1 H RDW Std Deviation 46.5 H RDW Coeff of Brooke 15.0 H Plt Count 271 MPV 11.1 H Immature Gran % (Auto) 0.2 Neut % (Auto) 80.2 Lymph % (Auto) 13.8 Lyman % (Auto) 5.2 Eos % (Auto) 0.3 Baso % (Auto) 0.3 Immature Gran # (Auto) 0.02 Neut # (Auto) 8.26 H Lymph # (Auto) 1.42 Lyman # (Auto) 0.54 Eos # (Auto) 0.03 Baso # (Auto) 0.03 Sodium 138 Potassium 3.1 L Chloride 102 Carbon Dioxide 23 Anion Gap 13.0 H BUN 7 Creatinine 1.00 Est Cr Clr Drug Dosing 76.0 Est GFR ( Amer) 77.2 Est GFR (Non-Af Amer) 66.6 BUN/Creatinine Ratio 6.7 L Glucose 146 H POC Glucose Calcium 9.6 Magnesium 1.9 Total Bilirubin 1.0 AST 34 ALT 39 Alkaline Phosphatase 145 H Total Creatine Kinase 114 Total Protein 7.7 Albumin 4.2 Globulin 3.5 Albumin/Globulin Ratio 1.2 TSH 0.675 Urine Color Urine Appearance Urine pH Ur Specific [place] Urine Protein Urine Glucose (UA) Urine Ketones Urine Blood Urine Nitrite Urine Bilirubin Urine Urobilinogen Ur Leukocyte Esterase Urine WBC (Auto) Urine RBC (Auto) U Hyaline Cast (Auto) U Epithel Cells (Auto) Urine Bacteria (Auto) Urine Mucus Urine Yeast Salicylates 2.8 Urine Opiates Screen Ur Methadone, Qual Acetaminophen < 2 L Urine Barbiturates Ur Phencyclidine (PCP) U Amphetamin/Meth Scrn MDMA (Ecstasy) Screen U Benzodiazepines Scrn Ur Cocaine Metabolite U Marijuana (THC) Screen Ethyl Alcohol mg/dL 02/19/19 02/19/19 02/19/19 11:18 11:22 11:45 WBC RBC Hgb Hct MCV MCH MCHC RDW Std Deviation RDW Coeff of Brooke Plt Count MPV Immature Gran % (Auto) Neut % (Auto) Lymph % (Auto) Lyman % (Auto) Eos % (Auto) Baso % (Auto) Immature Gran # (Auto) Neut # (Auto) Lymph # (Auto) Lyman # (Auto) Eos # (Auto) Baso # (Auto) Sodium Potassium Chloride Carbon Dioxide Anion Gap BUN Creatinine Est Cr Clr Drug Dosing Est GFR ( Amer) Est GFR (Non-Af Amer) BUN/Creatinine Ratio Glucose POC Glucose 145 H Calcium Magnesium Total Bilirubin AST ALT Alkaline Phosphatase Total Creatine Kinase Total Protein Albumin Globulin Albumin/Globulin Ratio TSH Urine Color Urine Appearance Urine pH Ur Specific [place] Urine Protein Urine Glucose (UA) Urine Ketones Urine Blood Urine Nitrite Urine Bilirubin Urine Urobilinogen Ur Leukocyte Esterase Urine WBC (Auto) Urine RBC (Auto) U Hyaline Cast (Auto) U Epithel Cells (Auto) Urine Bacteria (Auto) Urine Mucus Urine Yeast Salicylates Urine Opiates Screen Neg Ur Methadone, Qual Neg Acetaminophen Urine Barbiturates Neg Ur Phencyclidine (PCP) Neg U Amphetamin/Meth Scrn Neg MDMA (Ecstasy) Screen Pos H U Benzodiazepines Scrn Neg Ur Cocaine Metabolite Neg U Marijuana (THC) Screen Neg Ethyl Alcohol mg/dL < 3.0 02/19/19 11:45 WBC RBC Hgb Hct MCV MCH MCHC RDW Std Deviation RDW Coeff of Brooke Plt Count MPV Immature Gran % (Auto) Neut % (Auto) Lymph % (Auto) Lyman % (Auto) Eos % (Auto) Baso % (Auto) Immature Gran # (Auto) Neut # (Auto) Lymph # (Auto) Lyman # (Auto) Eos # (Auto) Baso # (Auto) Sodium Potassium Chloride Carbon Dioxide Anion Gap BUN Creatinine Est Cr Clr Drug Dosing Est GFR ( Amer) Est GFR (Non-Af Amer) BUN/Creatinine Ratio Glucose POC Glucose Calcium Magnesium Total Bilirubin AST ALT Alkaline Phosphatase Total Creatine Kinase Total Protein Albumin Globulin Albumin/Globulin Ratio TSH Urine Color Dark Yellow Urine Appearance Turbid A Urine pH 5.5 Ur Specific [place] 1.019 Urine Protein 2+ H Urine Glucose (UA) Negative Urine Ketones 2+ H Urine Blood Trace H Urine Nitrite Negative Urine Bilirubin Negative Urine Urobilinogen Negative Ur Leukocyte Esterase 1+ H Urine WBC (Auto) >30 H Urine RBC (Auto) 0-4 U Hyaline Cast (Auto) 1-5 U Epithel Cells (Auto) >30 H Urine Bacteria (Auto) 2+ H Urine Mucus Present A Urine Yeast Not Reportable Salicylates Urine Opiates Screen Ur Methadone, Qual Acetaminophen Urine Barbiturates Ur Phencyclidine (PCP) U Amphetamin/Meth Scrn MDMA (Ecstasy) Screen U Benzodiazepines Scrn Ur Cocaine Metabolite U Marijuana (THC) Screen Ethyl Alcohol mg/dL Diagnostic Findings Telemetry personally reviewed: Sinus rhythm. No arrhythmia. ECG personally reviewed 02/19/2019: Sinus rhythm with frequent PVCs. Prolonged QT. Echo 01/09/2019: Normal LV systolic function, wall motion. EF 55-60%. Mild MR. Medications Administered Current Inpatient Medications Acetaminophen (Tylenol) 650 mg PO Q4H PRN PRN Reason: Pain or Fever Stop: 03/21/19 14:32 Al Hydrox/Mg Hydrox/Simethicone (Maalox) 15 ml PO Q4H PRN PRN Reason: Dyspepsia Stop: 03/21/19 14:32 Aspirin (Ecotrin Ectab) 81 mg PO DAILY [facility] Stop: 03/22/19 08:59 Atorvastatin Calcium (Lipitor) 80 mg PO HS [facility] Stop: 03/21/19 20:59 Sodium Chloride (Nss 1000ml) 1,000 mls @ 100 mls/hr IV .Q10H [facility] Stop: 03/21/19 14:32 Last Admin: 02/19/19 15:00 Dose: 100 mls/hr Documented by: Potassium Chloride (K Santiago / Wtr) 10 meq in 100 mls @ 100 mls/hr IV Q1H [facility] Stop: 02/19/19 18:29 Last Admin: 02/19/19 16:39 Dose: 100 mls/hr Documented by: Metoprolol Tartrate (Lopressor) 25 mg PO BID [facility] Stop: 03/21/19 20:59 Nitroglycerin (Nitrostat) 0.4 mg SL UD PRN PRN Reason: Chest Pain Stop: 03/21/19 14:32 Potassium Chloride (Klor-Con M20) 20 meq PO BID [facility] Stop: 03/22/19 08:59 (1) Overdose Encounter type: initial encounter Injury intent: intentional self-harm Qualified Code(s): T50.902A - Poisoning by unspecified drugs, medicaments and biological substances, intentional self-harm, initial encounter
[2019-02-19] MEDS: ATORVASTATIN 40 MG TAB PO SCH (19:36)
[2019-02-19] MEDS: METOPROLOL TARTRATE 25 MG TAB PO SCH (19:36)
[2019-02-20 00:21] LABS: BUN Creatinine Ratio 5.9 (10-20); Calcium 8.4 mg/dl (8.5-10.1); Creatinine Clr Calc Pharmacy 94.9 ml/min; Est GFR (Non-African American) 87.2; Potassium 3.5 mmol/L (3.5-5.1)
[2019-02-20] MEDS: SODIUM CHLORIDE 0.9% 1000ML 1,000 ML IV SCH ×3 (02:21→20:42)
[2019-02-20 07:24] LABS: Calcium 8.4 mg/dl (8.5-10.1); Creatinine Clr Calc Pharmacy 109.4 ml/min; Est GFR (African American) 118.7; Est GFR (Non-African American) 102.5; Potassium 3.6 mmol/L (3.5-5.1)
--- NOTE | 2019-02-20 08:40 | Cardiology Progress Note ---
Date of Service February 20, 2019 Assessment & Plan (1) Prolonged QT interval: Her QT interval has normalized. Fortunately, it appears as though she vomited much of the hydroxyzine and trazodone pills that she had taken. Can discontinue serial ECGs at this time. Would still try to avoid medications of prolonged QT unless necessary over the short term. (2) Coronary artery disease, occlusive: No angina. She has prior RCA PCI. She should continue with anti-platelet therapy without interruption. Continue aspirin 81 mg daily. Continue beta- danica and high-intensity statin therapy. No heart failure symptoms. (3) Hyperlipidemia LDL goal <70: Continue high-intensity statin therapy. (4) Overdose: As per primary service. Psychiatric consultation is pending for her suicidal attempt. (5) Alcohol abuse: Refrain from alcohol and tobacco abuse. (6) Hypertension: Blood pressure has been normotensive since yesterday afternoon. Continue beta-danica. Can resume lisinopril if necessary. Disposition: Cardiology will sign off at this time. Please call with any furth er questions or concerns. Subjective She is not very talkative today. She denies chest pain, shortness of breath, syncope. She states that she does have intermittent lightheadedness but would not give any further details, even upon further questioning. She does feel palpitations from time to time. She was reassured that telemetry demonstrated s inus rhythm with occasional PVCs and she was reassured that PVCs are benign. Review of systems: As above. Physical Exam Physical Exam: Gen.: No acute distress. Alert. HEENT: Anicteric sclera. Neck: No JVD. Cardiac: Regular. Normal S1-S2. No murmurs, rubs, or gallops. Pulmonary: Clear to auscultation bilaterally without wheezes, rales, or rhonchi. Abdomen: Soft, nontender, nondistended, with normoactive bowel sounds. No bruits noted. Extremities: No edema or cyanosis. Psychiatric: Deferred. Results & Data Vital Signs (Past 12 Hours) Vital Signs Temp Pulse Pulse Resp BP Pulse Ox 02/20/19 07:04 37.2 C 72 16 135/84 96 02/20/19 03:40 37.2 C 77 19 124/78 96 02/20/19 00:33 76 02/19/19 23:07 37.3 C 74 18 122/81 96 Laboratory Results Laboratory Results - last 24 hr 02/19/19 02/19/19 02/19/19 11:18 11:18 11:18 WBC 10.30 RBC 5.14 Hgb 15.5 Hct 42.9 MCV 83.5 MCH 30.2 MCHC 36.1 H RDW Std Deviation 46.5 H RDW Coeff of Brooke 15.0 H Plt Count 271 MPV 11.1 H Immature Gran % (Auto) 0.2 Neut % (Auto) 80.2 Lymph % (Auto) 13.8 Payne % (Auto) 5.2 Eos % (Auto) 0.3 Baso % (Auto) 0.3 Immature Gran # (Auto) 0.02 Neut # (Auto) 8.26 H Lymph # (Auto) 1.42 Payne # (Auto) 0.54 Eos # (Auto) 0.03 Baso # (Auto) 0.03 Sodium 138 Potassium 3.1 L Chloride 102 Carbon Dioxide 23 Anion Gap 13.0 H BUN 7 Creatinine 1.00 Est Cr Clr Drug Dosing 76.0 Est GFR ( Amer) 77.2 Est GFR (Non-Af Amer) 66.6 BUN/Creatinine Ratio 6.7 L Glucose 146 H POC Glucose Calcium 9.6 Magnesium 1.9 Total Bilirubin 1.0 AST 34 ALT 39 Alkaline Phosphatase 145 H Total Creatine Kinase 114 Total Protein 7.7 Albumin 4.2 Globulin 3.5 Albumin/Globulin Ratio 1.2 TSH 0.675 Urine Color Urine Appearance Urine pH Ur Specific [place] Urine Protein Urine Glucose (UA) Urine Ketones Urine Blood Urine Nitrite Urine Bilirubin Urine Urobilinogen Ur Leukocyte Esterase Urine WBC (Auto) Urine RBC (Auto) U Hyaline Cast (Auto) U Epithel Cells (Auto) Urine Bacteria (Auto) Urine Mucus Urine Yeast Salicylates 2.8 Urine Opiates Screen Ur Methadone, Qual Acetaminophen < 2 L Urine Barbiturates Ur Phencyclidine (PCP) U Amphetamin/Meth Scrn MDMA (Ecstasy) Screen U Benzodiazepines Scrn Ur Cocaine Metabolite U Marijuana (THC) Screen Ethyl Alcohol mg/dL 02/19/19 02/19/19 02/19/19 11:18 11:22 11:45 WBC RBC Hgb Hct MCV MCH MCHC RDW Std Deviation RDW Coeff of Brooke Plt Count MPV Immature Gran % (Auto) Neut % (Auto) Lymph % (Auto) Payne % (Auto) Eos % (Auto) Baso % (Auto) Immature Gran # (Auto) Neut # (Auto) Lymph # (Auto) Payne # (Auto) Eos # (Auto) Baso # (Auto) Sodium Potassium Chloride Carbon Dioxide Anion Gap BUN Creatinine Est Cr Clr Drug Dosing Est GFR ( Amer) Est GFR (Non-Af Amer) BUN/Creatinine Ratio Glucose POC Glucose 145 H Calcium Magnesium Total Bilirubin AST ALT Alkaline Phosphatase Total Creatine Kinase Total Protein Albumin Globulin Albumin/Globulin Ratio TSH Urine Color Urine Appearance Urine pH Ur Specific [place] Urine Protein Urine Glucose (UA) Urine Ketones Urine Blood Urine Nitrite Urine Bilirubin Urine Urobilinogen Ur Leukocyte Esterase Urine WBC (Auto) Urine RBC (Auto) U Hyaline Cast (Auto) U Epithel Cells (Auto) Urine Bacteria (Auto) Urine Mucus Urine Yeast Salicylates Urine Opiates Screen Neg Ur Methadone, Qual Neg Acetaminophen Urine Barbiturates Neg Ur Phencyclidine (PCP) Neg U Amphetamin/Meth Scrn Neg MDMA (Ecstasy) Screen Pos H U Benzodiazepines Scrn Neg Ur Cocaine Metabolite Neg U Marijuana (THC) Screen Neg Ethyl Alcohol mg/dL < 3.0 02/19/19 02/19/19 02/20/19 11:45 23:54 06:16 WBC RBC Hgb Hct MCV MCH MCHC RDW Std Deviation RDW Coeff of Brooke Plt Count MPV Immature Gran % (Auto) Neut % (Auto) Lymph % (Auto) Payne % (Auto) Eos % (Auto) Baso % (Auto) Immature Gran # (Auto) Neut # (Auto) Lymph # (Auto) Payne # (Auto) Eos # (Auto) Baso # (Auto) Sodium 143 142 Potassium 3.5 3.6 Chloride 112 H 113 H Carbon Dioxide 24 24 Anion Gap 7.0 6.0 BUN 5 L 4 L Creatinine 0.80 0.70 Est Cr Clr Drug Dosing 94.9 109.4 Est GFR ( Amer) 101.0 118.7 Est GFR (Non-Af Amer) 87.2 102.5 BUN/Creatinine Ratio 5.9 L 6.0 L Glucose 112 H 100 H POC Glucose Calcium 8.4 L 8.4 L Magnesium 2.0 Total Bilirubin AST ALT Alkaline Phosphatase Total Creatine Kinase Total Protein Albumin Globulin Albumin/Globulin Ratio TSH Urine Color Dark Yellow Urine Appearance Turbid A Urine pH 5.5 Ur Specific [place] 1.019 Urine Protein 2+ H Urine Glucose (UA) Negative Urine Ketones 2+ H Urine Blood Trace H Urine Nitrite Negative Urine Bilirubin Negative Urine Urobilinogen Negative Ur Leukocyte Esterase 1+ H Urine WBC (Auto) >30 H Urine RBC (Auto) 0-4 U Hyaline Cast (Auto) 1-5 U Epithel Cells (Auto) >30 H Urine Bacteria (Auto) 2+ H Urine Mucus Present A Urine Yeast Not Reportable Salicylates Urine Opiates Screen Ur Methadone, Qual Acetaminophen Urine Barbiturates Ur Phencyclidine (PCP) U Amphetamin/Meth Scrn MDMA (Ecstasy) Screen U Benzodiazepines Scrn Ur Cocaine Metabolite U Marijuana (THC) Screen Ethyl Alcohol mg/dL Diagnostic Findings ECGs personally reviewed: ECG 02/20/2019: Sinus rhythm 70 bpm. PVC. Normal QT. ECG 02/20/2019 at 12:00 a.m.: NSR at 63 bpm. Normal QT. ECG 02/19/2019 at 8:01 p.m.: NSR 75 bpm. Normal QT. Telemetry personally reviewed: Sinus rhythm with occasional PVCs. No arrhythmia. Medications Administered Current Inpatient Medications Acetaminophen (Tylenol) 650 mg PO Q4H PRN PRN Reason: Pain or Fever Stop: 03/21/19 14:32 Al Hydrox/Mg Hydrox/Simethicone (Maalox) 15 ml PO Q4H PRN PRN Reason: Dyspepsia Stop: 03/21/19 14:32 Aspirin (Ecotrin Ectab) 81 mg PO DAILY [facility] Stop: 03/22/19 08:59 Atorvastatin Calcium (Lipitor) 80 mg PO HS [facility] Stop: 03/21/19 20:59 Last Admin: 02/19/19 19:36 Dose: 80 mg Documented by: Sodium Chloride (Nss 1000ml) 1,000 mls @ 100 mls/hr IV .Q10H [facility] Stop: 03/21/19 14:32 Last Admin: 02/20/19 02:21 Dose: 100 mls/hr Documented by: Metoprolol Tartrate (Lopressor) 25 mg PO BID [facility] Stop: 03/21/19 20:59 Last Admin: 02/19/19 19:36 Dose: 25 mg Documented by: Nitroglycerin (Nitrostat) 0.4 mg SL UD PRN PRN Reason: Chest Pain Stop: 03/21/19 14:32 Potassium Chloride (Klor-Con M20) 20 meq PO BID [facility] Stop: 03/22/19 08:59 (1) Overdose Encounter type: initial encounter Injury intent: intentional self-harm Qualified Code(s): T50.902A - Poisoning by unspecified drugs, medicaments and biological substances, intentional self-harm, initial encounter
[2019-02-20] MEDS ORDERED: ASPIRIN 81 MG ECTAB PO SCH (09:00)
[2019-02-20] MEDS ORDERED: HALOPERIDOL LACTATE 5 MG/ML 1 ML VIAL IV STA (09:17)
[2019-02-20] MEDS ORDERED: LORazepam 0.25 MG/0.5 ML VIAL IV PRN (09:17)
[2019-02-20] MEDS ORDERED: HALOPERIDOL LACTATE 5 MG/ML 1 ML VIAL ONE (09:30)
[2019-02-20] MEDS: ASPIRIN 81 MG ECTAB PO SCH (10:26)
[2019-02-20] MEDS: POTASSIUM CHLORIDE 20 MEQ TABCR PO SCH ×2 (10:26→20:45)
[2019-02-20] MEDS: THIAMINE HCL 100 MG TAB PO SCH (10:27)
[2019-02-20] MEDS: METOPROLOL TARTRATE 25 MG TAB PO SCH ×2 (10:27→20:44)
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
[2019-02-20] MEDS ORDERED: HALOPERIDOL LACTATE 5 MG/ML 1 ML VIAL IV PRN ×2 (19:56→20:00)
--- NOTE | 2019-02-20 19:58 | Hospitalist Progress Note ---
Date of Service February 20, 2019 Assessment & Plan (1) Prolonged QT interval: Her QT interval has normalized. Fortunately, it appears as though she vomited much of the hydroxyzine and trazodone pills that she had taken. Can discontinue serial EKGs. Gave one dose of 2.5 mg haldol this morning and added haldol prn q4h as patient was having hallucinations and agitation. Continue to monitor telemetry for any widening of qt interval. Cardiology consulted (2) Coronary artery disease, occlusive: No angina. She has prior RCA PCI. She should continue with anti-platelet therapy without interruption. Continue aspirin 81 mg daily. Continue beta-blo cker and high-intensity statin therapy. No heart failure symptoms. (3) Hyperlipidemia LDL goal <70: Continue high-intensity statin therapy. (4) Overdose: As per primary service. Psychiatric consultation for her suicidal attempt - patient will likely need to be made a 302 as she expressed again this morning that she would kill herself. (5) Alcohol abuse: Refrain from alcohol and tobacco abuse. AWSS scale PRN ativan 0.25 mg q4h for now - hopefully will not need to give significant doses but alcohol detox may complicate patient psychosis (6) Hypertension: Per cardiology - Blood pressure has been normotensive since yesterday afternoon. Continue beta-danica. Can resume lisinopril if necessary. (7) Schizoaffective disorder: Psych requested haldol be administered to patient if possible with her QT lengthening. Patient's QT has resolved since yesterday afternoon and given her psychotic/agitated behaviors, gave haldol this morning and will make it available prn 1mg q4h but QT will need to be watched closely. Repeat EKG at noon without QT prolongation. Subjective Ms. Alcala is quite drowsy after receiving haldol and ativan this morning following agitation and hallucinations where patient attempted to get past her one to one and down the stairwell. She is unable to give a ROS Physical Exam Physical Exam: General: no distress Eyes: normal inspection, PERLL Respiratory: chest non tender, clear to auscultation, normal breath sounds, no respiratory distress, no accessory muscle use Cardiac: regular rate and rhythm, no rub or gallop, no murmur, no edema, no jvd GI/: active bowel sounds, no abd pain or tenderness, soft, non distended Extremities: unable to assess Neuro/Psych: lethargic Skin: normal color, dry Results & Data Vital Signs (Past 12 Hours) Vital Signs Temp Pulse Pulse Resp BP BP Pulse Ox 02/20/19 18:51 36.6 C 81 14 148/81 H 96 02/20/19 15:41 37.2 C 84 18 143/84 H 94 02/20/19 10:48 37.2 C 71 22 146/83 H 96 02/20/19 08:00 76 (1) Overdose Encounter type: initial encounter Injury intent: intentional self-harm Qualified Code(s): T50.902A - Poisoning by unspecified drugs, medicaments and biological substances, intentional self-harm, initial encounter (2) Schizoaffective disorder Schizoaffective disorder type: bipolar Qualified Code(s): F25.0 - Schizoaffective disorder, bipolar type
[2019-02-20] MEDS: ATORVASTATIN 40 MG TAB PO SCH (20:44)
[2019-02-21] MEDS: SODIUM CHLORIDE 0.9% 1000ML 1,000 ML IV SCH ×2 (05:38→16:25)
[2019-02-21] MEDS: FOLIC ACID 1 MG TAB PO SCH (07:48)
[2019-02-21] MEDS: POTASSIUM CHLORIDE 20 MEQ TABCR PO SCH ×2 (07:48→21:01)
[2019-02-21] MEDS: METOPROLOL TARTRATE 25 MG TAB PO SCH ×2 (07:48→21:01)
[2019-02-21] MEDS: THIAMINE HCL 100 MG TAB PO SCH (07:49)
[2019-02-21] MEDS: ASPIRIN 81 MG ECTAB PO SCH (07:49)
[2019-02-21 08:52] LABS: Basophils # (auto) 0.01 K/uL (0-0.2); Basophils % (auto) 0.1 %; Eosinophils # (auto) 0.07 K/uL (0-0.5); Eosinophils % (auto) 0.9 %; Hematocrit (blood only) 36.4 % (37-47); Hemoglobin 12.8 g/dL (12.0-16.0); Immature Granulocytes # (auto) 0.02 K/uL (0.00-0.02); Immature Granulocytes % (auto) 0.3 %; Lymphocytes # (auto) 1.87 K/uL (1.2-3.4); Lymphocytes % (auto) 23.4 %; Mean Corpuscular Hgb Conc 35.2 g/dL (32-36); Mean Corpuscular Volume 83.9 fL (80-100); Mean Platelet Volume 11.1 fL (7.4-10.4); Monocytes # (auto) 0.56 K/uL (0.11-0.59); Neutrophils # (auto) 5.47 K/uL (1.4-6.5); Neutrophils % (auto) 68.3 %; Platelet Count 239 K/uL (130-400); RDW Coefficient of Variation 15.3 % (11.5-14.5); RDW Standard Deviation 47.5 fL (36.4-46.3); Red Blood Count 4.34 M/uL (4.2-5.4)
[2019-02-21 09:16] LABS: BUN Creatinine Ratio 8.1 (10-20); Calcium 8.6 mg/dl (8.5-10.1); Creatinine Clr Calc Pharmacy 100.8 ml/min; Est GFR (African American) 107.5; Est GFR (Non-African American) 92.8; Potassium 3.5 mmol/L (3.5-5.1)
--- NOTE | 2019-02-21 09:55 | Hospitalist Progress Note ---
Date of Service February 21, 2019 Assessment & Plan (1) Prolonged QT interval: Her QT interval has normalized. - discontinued serial EKGs. - Gave one dose of 2.5 mg haldol 02/20 and added haldol prn q4h as patient was having hallucinations and agitation. Continue to monitor telemetry for any wi dening of qt interval. - Cardiology consulted and has signed off (2) Coronary artery disease, occlusive: No angina. She has prior RCA PCI. She should continue with anti-platelet therapy without interruption. Continue aspirin 81 mg daily. Continue beta- danica and high-intensity statin therapy. No heart failure symptoms. (3) Hyperlipidemia LDL goal <70: Continue high-intensity statin therapy. (4) Overdose: Psychiatric consulted for her suicidal attempt (5) Alcohol abuse: AWSS scale has been around 2 PRN ativan 0.25 mg q4h and will give Librium 25 mg TID and taper down Folate and thiamine supplements (6) Hypertension: Per cardiology - Blood pressure has been normotensive since yesterday afternoon. Continue beta-danica. Can resume lisinopril if necessary. (7) Schizoaffective disorder: Psych requested haldol be administered to patient if possible with her QT lengthening. Her QT has normalized to will have haldol prn available and defer to psych for further antipsychotic orders. Subjective Ms. Alcala is awake and oriented this morning though her sitter reports she was asking about children with no heads and people with no legs being in the building just before I came in. She denies any chest pain or other discomfort. She reports she has detoxed in the past and is feeling a little shakey this morning. She denies any suicidal feelings today and no longer wishes to hurt herself. Review of Systems Review of Systems: All systems reviewed & are unremarkable except as noted in HPI & below Physical Exam Physical Exam: General: no distress Eyes: normal inspection, PERLL, mild lateral nystagmus Respiratory: chest non tender, clear to auscultation, normal breath sounds, no respiratory distress, no accessory muscle use Cardiac: regular rate and rhythm, no rub or gallop, no murmur, no edema, no jvd GI/: active bowel sounds, no abd pain or tenderness, soft, non distended Extremities: normal range of motion, normal strength, non tender Neuro/Psych: alert and oriented x 3, flat affect Skin: normal color, dry Results & Data Vital Signs (Past 12 Hours) Vital Signs Temp Pulse Resp BP Pulse Ox 02/21/19 06:42 36.6 C 81 18 138/79 02/21/19 03:00 36.5 C 80 20 149/89 H 96 02/20/19 23:50 36.6 C 86 16 144/91 H 98 (1) Overdose Encounter type: initial encounter Injury intent: intentional self-harm Qualified Code(s): T50.902A - Poisoning by unspecified drugs, medicaments and biological substances, intentional self-harm, initial encounter (2) Schizoaffective disorder Schizoaffective disorder type: bipolar Qualified Code(s): F25.0 - Schizoaffective disorder, bipolar type
[2019-02-21] MEDS: NICOTINE 14 MG/24 HR PATCH TD SCH (11:03)
[2019-02-21] MEDS: chlordiazePOXIDE HCl 25 MG CAP PO SCH ×2 (14:30→21:00)
--- NOTE | 2019-02-21 16:17 | Psychiatric Progress Note ---
Date of Service February 21, 2019 Impression / Recommendations Impression Able to better discuss with patient the events leading to her admission. Pt states she felt she was "going crazy", and verbalized that her overdose of hydroxyzine and trazodone was intentional. It is conflicting if the intent was to "escape" or to actually end her life; either way she had demonstrated a clear intent to harm herself knowing was a possibility. Pt is a poor historian, but based on conversation, it is not likely she was taking her psychiatric medications appropriately - if at all. When off medications, the patient admits to experiencing hallucinations; when on medications, she states she is too sedated to be able to work. She does admit she requires medication adjustments, but prefers to do this on an outpatient basis. Pt is declining initial offer for voluntary admission for inpatient psychiatric treatment. Risk factors for further acts of harm include poor compliance with medications, currently ineffective regimen to target her psychiatric symptoms, limited outpatient supports (12y/o son living with her at home), inability to verbalize adequate safety plan aside from "this won't happen again." Pt does not have an outpatient therapist or telehealth case manager per her reports. Based on these factors and patient's own report, there is sufficient criteria for an involuntary commitment for inpatient psychiatric treatment. There is a 302 petitioning statement on the patient's chart, and recommendation at this time is for inpatient mental health hospitalization. Referrals should be pursued to psychiatric treatment facilities at time of medical clearance, with 302 being utilized if patient is indicating unwillingness for treatment. Dr. Gertrude Ledbetter was directly involved in review and discussion of the patient's case and participated in medical decision making regarding treatment recommendations. Risk Factors Assessment Do You Have Access To A Gun?: No Interval History Identifying Information 48-year-old female admitted medically s/p overdose of trazodone and hydroxyzine. Psychiatric consultation is requested to assess for suicidality s/p what is reported to be an intentional drug overdose. Chief Complaint "I'm alright. I just didn't care to live anymore, so I took to many pills." Review of Systems Notes Constitutional: reports 15lb weight loss in 1 month Cardiovascular: reports occasional chest pain Respiratory: denied Gastrointestinal: reports an episode of vomiting in the last 1-2 days Neurological: denied Psychiatric: denies symptoms other than stated above Total of at least 10 systems reviewed, pertinent positives as above and in HPI. Subjective Subjective Patient was seen & assessed and interval progress reviewed with psychiatric nurse liaison. This visit was a follow-up from initial consultation on 02/20/19, which was minimally productive due to patient's level of sedation. Pt was seen today to assess psychiatric progress since admission. Pt admits to this provider that she had taken too many pills intentionally, initially stating she didn't want to live anymore. Pt reports that she has been "off my meds for 6 or 7 months and "they were just restarted, so they didn't have the chance to sink in yet." Pt states she had resumed treatment with Dr. Nuñez 1 month prior to this admission and was started on a medication regimen to target her mood concerns and auditory hallucinations. Pt states she had been off her medications recently, but is unable to explain why. She states, "I felt crazy, like I was losing my mind. I would sit there and talk to the mendenhall forever." Pt states she has noticed worsening of these symptoms since being fired from her job about 4 months prior to admission. Pt states she is not happy with her current medications, as she believes they make her sedated. She reports that she is unable to work in that condition, which further contributes to her low mood. Pt states her mood is "bipolar, I get angry real quick, then it goes away." She states she has had difficulty sleeping recently. Energy level has also decreased. Pt states that she had had thoughts of "wanting to put myself out of my misery for a while" - now stating that she did not intent to end her live by her overdose. Pt is unsure of any psychiatric diagnosis, stating "the bipolar is what I need to be treated for." Our records suggest a history of schizoaffective disorder. When reviewing the patient's medications, she is unable to provide information as to which she has been taking, and it sounds as though she might not have been taking any of her psychiatric medications prior to admission. She was also prescribed hydroxyzine, trazodone, and gabapentin recently - unclear if taking t hese as prescribed prior to her overdose. Pt denies any current SI, and states she wants to be home for her son's birthday and wishes to follow up with her psychiatrist on an outpatient basis. Pt was asked if she would be willing for voluntary admission for inpatient psychiatric treatment and declined. Physical Exam Psychiatric Orientation: alert, oriented x 3 and cooperative Apperance: appropriately dressed (in paper scrubs), + disheveled (somewhat) and appeared stated age Eye Contact: good eye contact Motor Behavior: no abnormal motor movements (observed while laying in bed) Speech: normal rate/rhythm/volume of speech (soft tone) Affect: + blunted affect and + constricted affect "fine now, I just want to go home" Thought Process: goal directed thought process and clear/coherent thought process Thought Content: reality based without delusions Suicidal Thoughts: denies suicidal thoughts (at time of this assessment) but admits overdose prior to admission was intended to cause harm, if not end her life Homicidal Thoughts: denies homicidal thoughts Hallucinations: no auditory hallucinations and no visual hallucinations Denies at time of this assessment; reports previously hearing the mendenhall talking to her. Nursing assessments suggest episodes of active hallucinations at times Cognition: attention grossly intact and language grossly intact Estimated Intelligence: consistent with education level Insight: + impaired insight Judgement: + impaired judgement Vital Signs (Past 24 Hours) Last Vital Signs Temp 36.6 C 02/21/19 15:05 Pulse 71 02/21/19 15:05 Resp 20 02/21/19 15:05 BP 157/91 H 02/21/19 15:05 Pulse Ox 96 02/21/19 15:05 Results & Data Laboratory Results Laboratory Results - last 24 hr 02/21/19 02/21/19 08:30 08:30 WBC 8.00 RBC 4.34 Hgb 12.8 Hct 36.4 L MCV 83.9 MCH 29.5 MCHC 35.2 RDW Std Deviation 47.5 H RDW Coeff of Brooke 15.3 H Plt Count 239 MPV 11.1 H Immature Gran % (Auto) 0.3 Neut % (Auto) 68.3 Lymph % (Auto) 23.4 Schleicher % (Auto) 7.0 Eos % (Auto) 0.9 Baso % (Auto) 0.1 Immature Gran # (Auto) 0.02 Neut # (Auto) 5.47 Lymph # (Auto) 1.87 Schleicher # (Auto) 0.56 Eos # (Auto) 0.07 Baso # (Auto) 0.01 Sodium 144 Potassium 3.5 Chloride 114 H Carbon Dioxide 23 Anion Gap 7.0 BUN 6 L Creatinine 0.76 Est Cr Clr Drug Dosing 100.8 Est GFR ( Amer) 107.5 Est GFR (Non-Af Amer) 92.8 BUN/Creatinine Ratio 8.1 L Glucose 115 H Calcium 8.6 Current Inpatient Medications Current Inpatient Medications: Current Inpatient Medications Acetaminophen (Tylenol) 650 mg PO Q4H PRN PRN Reason: Pain or Fever Stop: 03/21/19 14:32 Al Hydrox/Mg Hydrox/Simethicone (Maalox) 15 ml PO Q4H PRN PRN Reason: Dyspepsia Stop: 03/21/19 14:32 Aspirin (Ecotrin Ectab) 81 mg PO DAILY [facility] Stop: 03/22/19 08:59 Last Admin: 02/21/19 07:49 Dose: 81 mg Documented by: Atorvastatin Calcium (Lipitor) 80 mg PO HS [facility] Stop: 03/21/19 20:59 Last Admin: 02/20/19 20:44 Dose: 80 mg Documented by: Chlordiazepoxide HCl (Librium) 25 mg PO TID [facility] Stop: 03/23/19 13:59 Last Admin: 02/21/19 14:30 Dose: 25 mg Documented by: Folic Acid (Folvite) 1 mg PO QAM [facility] Stop: 03/23/19 08:59 Last Admin: 02/21/19 07:48 Dose: 1 mg Documented by: Haloperidol Lactate (Haldol) 1 mg IV Q4H PRN PRN Reason: agitation, hallucinations Stop: 03/22/19 19:55 Sodium Chloride (Nss 1000ml) 1,000 mls @ 100 mls/hr IV .Q10H [facility] Stop: 03/21/19 14:32 Last Admin: 02/21/19 05:38 Dose: 100 mls/hr Documented by: Lorazepam (Ativan) 0.25 mg in 0.5 mls @ 0.5 mls/min IV Q4H PRN PRN Reason: Agitation Stop: 03/22/19 09:16 Last Admin: 02/20/19 10:36 Dose: 0.5 mls/min Documented by: Metoprolol Tartrate (Lopressor) 25 mg PO BID [facility] Stop: 03/21/19 20:59 Last Admin: 02/21/19 07:48 Dose: 25 mg Documented by: Miscellaneous (Remove Nicoderm Patch) 1 ea N/A HS [facility] Stop: 03/23/19 20:59 Nicotine (Nicoderm Cq) 14 mg TD QAM [facility] Stop: 03/23/19 09:59 Last Admin: 02/21/19 11:03 Dose: 14 mg Documented by: Nitroglycerin (Nitrostat) 0.4 mg SL UD PRN PRN Reason: Chest Pain Stop: 03/21/19 14:32 Potassium Chloride (Klor-Con M20) 20 meq PO BID [facility] Stop: 03/22/19 08:59 Last Admin: 02/21/19 07:48 Dose: 20 meq Documented by: Thiamine HCl (Vitamin B-1) 100 mg PO QAM [facility] Stop: 03/22/19 09:17 Last Admin: 02/21/19 07:49 Dose: 100 mg Documented by: CPT Code CPT Code 50142
[2019-02-21] MEDS: ATORVASTATIN 40 MG TAB PO SCH (21:01)
[2019-02-22] MEDS: SODIUM CHLORIDE 0.9% 1000ML 1,000 ML IV SCH (02:19)
[2019-02-22] MEDS: chlordiazePOXIDE HCl 25 MG CAP PO SCH (08:00)
[2019-02-22] MEDS: NICOTINE 14 MG/24 HR PATCH TD SCH (08:00)
[2019-02-22] MEDS: POTASSIUM CHLORIDE 20 MEQ TABCR PO SCH (08:01)
[2019-02-22] MEDS: ASPIRIN 81 MG ECTAB PO SCH (08:01)
[2019-02-22] MEDS: THIAMINE HCL 100 MG TAB PO SCH (08:01)
[2019-02-22] MEDS: FOLIC ACID 1 MG TAB PO SCH (08:01)
[2019-02-22] MEDS: METOPROLOL TARTRATE 25 MG TAB PO SCH (08:01)
--- NOTE | 2019-02-22 16:17 | Discharge Summary ---
Date of Service February 22, 2019 Admission HPI Per Admitting Provider Tarun Alcala is a 48-year-old female admitted medically following what is believed to be an intentional overdose of trazodone and hydroxyzine. Patient is receiving ongoing medical management, serial EKGs, and observation until time of medical clearance. Patient has a reported history of schizoaffective disorder and was last seen on our consult service in January 2019, when attempts were made to reestablish outpatient psychiatric treatment. Patient has a long history of alcohol abuse in combination with her mental health diagnosis. Psychiatric consultation is requested to evaluate for suicidality and make recommendations concerning consideration for inpatient psychiatric treatment after medical clearance. Psychiatric nurse liaison met with patient earlier today and found the patient to be actively responding to auditory hallucinations. Patient had reported that the mendenhall were talking to her, and conversation was interrupted by patient's made to listen to what the mendenhall were saying. Patient did report to nurse liaison that she did take excessive amounts of medications with a desire to end her life. Patient had reported that she feels that she needs to , but could not explain why. Patient was not able, or unwilling, to provide information fully assess her history. She was unable to verbalize willingness for a voluntary inpatient psychiatric admission. 302 petitioning statement was completed by nurse liaison given her current presentation. Prior to this provider assessing patient, it is reported that the patient attempted to elope from the floor, making it to the stairwell before she was redirected back to her room. Patient did receive medications to calm agitation. At the time of this provider sees the patient she is sedated. Patient is arousable to verbal stimuli; however, is able to maintain attention long enough to participate in a productive interview. Several attempts were made to awaken patient enough to engage in conversation, but these attempts were unsuccessful. Principal Diagnosis Intentional overdose Discharge Exam Constitutional WD/WN, vitals as above Respiratory normal respiratory effort, lungs clear to auscultation Cardiovascular RRR, no murmur, no edema Gastrointestinal (Abdomen) Inspection/Auscultation: abdomen normal to inspection and normal bowel sounds; abdomen not distended Musculoskeletal no cyanosis or clubbing, extremities motor strength 5/5 Skin no rashes, warm and dry Neurologic moves all extremities and awake Psychiatric Orientation: alert and oriented x 3 Affect: + flat affect Discharge Data Allergies Allergy/AdvReac Type Severity Reaction Status Date / Time No Known Allergies Allergy Verified 02/19/19 14:04 Consultations 02/19/19 12:31 ED Decision to Admit Stat 02/19/19 14:33 Consult Cardiology Routine Consult Psychiatry Stat Hospital Course (1) Prolonged QT interval: Her QT interval has normalized. - discontinued serial EKGs. - Gave one dose of 2.5 mg haldol 02/20 and added haldol prn q4h as patient was having hallucinations and agitation. - Cardiology consulted and has signed off (2) Coronary artery disease, occlusive: No angina. She has prior RCA PCI. She should continue with anti-platelet therapy without interruption. Continue aspirin 81 mg daily. Continue beta- danica and high-intensity statin therapy. No heart failure symptoms. (3) Hyperlipidemia LDL goal <70: Continue high-intensity statin therapy. (4) Overdose: Psychiatric consulted for her suicidal attempt (5) Alcohol abuse: AWSS scale has been around 2 PRN ativan 0.25 mg q4h and Librium taper Folate and thiamine supplements (6) Hypertension: Per cardiology - Blood pressure has been normotensive since yesterday afternoon. Continue beta-danica. Can resume lisinopril if necessary. (7) Schizoaffective disorder: PRN haldol Total Time Total Time Spent Total Time Spent (In Minutes): greater than 30 minutes Discharge Plan Discharge Items Patient Disposition: Transfer Behavioral Health Fac Reason For Visit: INTENTIONAL DRUG OVERDOSE Discharge Diagnosis: Intentional drug overdose Discharge Goals: Specific goals Activity: Resume your previous activity Non-emergency contact: Primary Care Provider Call non-emergency contact if: you have any medication questions Follow-up/Referrals: Juan Carlos Martinez MD [Primary Care Provider] - Diet: Heart Healthy Addtl Provider Instructions: Chlordiapoxide can be titrated down to once daily tomorrow and then discontinued the next day if no further alcohol detox symptoms. Prescriptions: New chlordiazepoxide HCl 25 mg Capsule 25 mg PO BID Qty: 14 RF: 0 nicotine 7 mg/24 hr Patch 24 Hour 14 mg transdermal QAM Qty: 7 RF: 0 Continued clopidogrel 75 mg Tablet 75 mg PO QAM Qty: 30 RF: 1 levothyroxine [Synthroid] 25 mcg Tablet 25 mcg PO DAILYBB Qty: 30 RF: 1 cyanocobalamin (vitamin B-12) [Vitamin B-12] 500 mcg Tablet 1,000 mcg PO QAM Qty: 90 RF: 3 folic acid 1 mg Tablet 1 mg PO QAM Qty: 30 RF: 0 thiamine HCl (vitamin B1) 250 mg tablet 250 mg PO BID Qty: 60 RF: 0 metoprolol succinate 25 mg tablet extended release 24 hr 25 mg PO DAILY Qty: 30 RF: 1 pantoprazole 40 mg tablet,delayed release (DR/EC) 40 mg PO QAM Qty: 30 RF: 1 nitroglycerin 0.4 mg tablet, sublingual 0.4 mg sublingual Q5M PRN (Reason: chest pain) Qty: 1 RF: 0 atorvastatin 40 mg tablet 40 mg PO HS RF: 0 buspirone 5 mg tablet 5 mg PO BID RF: 0 benztropine 0.5 mg tablet 0.5 mg PO TID RF: 0 ziprasidone HCl 20 mg capsule 20 mg PO BID RF: 0 haloperidol 10 mg tablet 10 mg PO HS RF: 0 lisinopril 5 mg tablet 5 mg PO DAILY RF: 0 gabapentin 100 mg capsule 200 mg PO HS RF: 0 duloxetine 30 mg capsule,delayed release(DR/EC) 30 mg PO DAILY RF: 0 Discontinued hydroxyzine pamoate 100 mg capsule 200 mg PO BID RF: 0 trazodone 100 mg tablet 100 mg PO HS RF: 0 Stand-Alone Forms: Replaced By [facility] Discharge Orders: Discharge Order (Routine); Ordered 02/22/19 Ordered By: Nely Daniels Admission Data Admit Date/Time: 02/19/19 13:29 Attending Provider: Rick Lr Admit Provider: Oli Cosme Primary Care Provider: Juan Carlos Martinez V. Other Providers: Oli Cosme ; Gertrude Ledbetter Kip M. ; Cam Evans ; Jarvis Bowman ; Alton Rhodes ; Justin Mary Jr ; Sander Alfred ; Maggie Shearer ; Jennifer Hammer ; Doug Prince ; Doug Daily ; Sen Thomas ; Oli Mueller ; Jelena Llamas ; Delilah Green Service: Telemetry
[2019-02-22] MEDS ORDERED: chlordiazePOXIDE HCl 25 MG CAP PO SCH (21:00)
--- NOTE | 2019-03-03 12:33 | History & Physical Report ---
Date of Service March 03, 2019 Assessment & Plan (1) Prolonged QT interval: Her QT interval has normalized. - discontinued serial EKGs. - Gave one dose of 2.5 mg haldol 02/20 and added haldol prn q4h as patient was having hallucinations and agitation. - Cardiology consulted and has signed off (2) Coronary artery disease, occlusive: No angina. She has prior RCA PCI. She should continue with anti-platelet therapy without interruption. Continue aspirin 81 mg daily. Continue beta- danica and high-intensity statin therapy. No heart failure symptoms. (3) Hyperlipidemia LDL goal <70: Continue high-intensity statin therapy. (4) Overdose: Psychiatric consulted for her suicidal attempt (5) Alcohol abuse: AWSS scale has been around 2 PRN ativan 0.25 mg q4h and Librium taper Folate and thiamine supplements (6) Hypertension: Per cardiology - Blood pressure has been normotensive since yesterday afternoon. Continue beta-danica. Can resume lisinopril if necessary. (7) Schizoaffective disorder: PRN haldol History of Present Illness Primary Care Provider: Juan Carlos Martinez MD Allergies Allergy/AdvReac Type Severity Reaction Status Date / Time No Known Allergies Allergy Verified 02/19/19 14:04 Home Medications Home Medications Medication Instructions Recorded Confirmed Type clopidogrel 75 mg PO QAM #30 tab 01/09/19 02/26/19 Rx cyanocobalamin (vitamin B-12) 1,000 mcg PO QAM #90 tab 01/09/19 02/19/19 Rx [Vitamin B-12] folic acid 1 mg PO QAM #30 tab 01/09/19 02/19/19 Rx levothyroxine [Synthroid] 25 mcg PO DAILYBB #30 tab 01/09/19 02/26/19 Rx metoprolol succinate 25 mg PO DAILY #30 tab 01/09/19 02/26/19 Rx nitroglycerin 0.4 mg SUBLINGUAL Q5M PRN #1 btl 01/09/19 02/19/19 Rx pantoprazole 40 mg PO QAM #30 tab 01/09/19 02/26/19 Rx thiamine HCl (vitamin B1) 250 mg PO BID #60 tab 01/09/19 02/19/19 Rx gabapentin 200 mg PO HS 05/13/19 05/13/19 History lisinopril 5 mg PO DAILY 02/19/19 02/19/19 History atorvastatin 40 mg PO HS #14 tab 02/26/19 02/19/19 Rx benztropine 0.25 mg PO BID #60 tab 02/26/19 Rx chlordiazepoxide HCl 5 mg PO BID 7 Days #14 cap 02/26/19 Rx nicotine 14 mg TRANSDERMAL QAM #14 ea 02/26/19 Rx nicotine (polacrilex) [Nicorelief] 1 piece of gum MT PRN PRN #170 ea 02/26/19 Rx risperidone 1 mg PO QAM #30 tab 02/26/19 Rx risperidone 2 mg PO HS #30 tab 02/26/19 Rx Past Med/Surg History Medical History History of stroke STEMI (ST elevation myocardial infarction) (Acute) Medical non-compliance (Acute) Schizoaffective disorder, depressive type (Chronic) Surgical History H/O heart artery stent Family History Mother Diabetes Father , age 70 of pancreatic cancer. 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 Feels Safe at Home: No Is there a partner from a previous relationship who is making you feel unsafe now?: No Smoking Status: Current every day smoker Tobacco Type: cigarettes Cigarettes Per Day: 2-3 Second Hand Exposure: No Hx Alcohol Use: Yes Alcohol type: beer Alcohol Intake Frequency Comment: Three 32 ounce cans of Monae Light beer per day Hx Substance Use: No (1) Overdose Encounter type: initial encounter Injury intent: intentional self-harm Qualified Code(s): T50.902A - Poisoning by unspecified drugs, medicaments and biological substances, intentional self-harm, initial encounter (2) Schizoaffective disorder Schizoaffective disorder type: bipolar Qualified Code(s): F25.0 - Schizoa ffective disorder, bipolar type
--- NOTE | 2019-03-03 12:38 | History & Physical Report ---
Date of Service Late entry. Actual date of service February 19, 2019 March 03, 2019 Assessment & Plan (1) Prolonged QT interval: Observation with telemetry. Serial EKGs. Hold all offending medications. Obtain cardiology consultation (2) Coronary artery disease, occlusive: No angina. She has prior RCA PCI. Continue aspirin 81 mg daily. Continue beta-danica and high-intensity statin therapy. No heart failure symptoms. (3) Hyperlipidemia LDL goal <70: Continue high-intensity statin therapy. (4) Overdose: Psychiatric consulted for her suicidal attempt (5) Alcohol abuse: AWSS scale has been around 2 PRN ativan 0.25 mg q4h and Librium taper Folate and thiamine supplements (6) Hypertension: Per cardiology - Blood pressure has been normotensive since yesterday aft juana. Continue beta-danica. Can resume lisinopril if necessary. (7) Schizoaffective disorder: PRN haldol History of Present Illness Chief Complaint: Intentional multidrug overdose, suicide attempt Primary Care Provider: Juan Carlos Martinez MD This is a 48-year-old female with a history of schizoaffective disorder who intentionally overdosed on trazodone and hydroxyzine in an apparent suicide attempt. She has a prolonged QTc interval and will need to be placed on observation with telemetry. She will have serial EKGs and cardiology consultation at this time. She is somewhat lethargic but arousable and able to answer questions. She is hemodynamically stable at the time of my examination. Allergies Allergy/AdvReac Type Severity Reaction Status Date / Time No Known Allergies Allergy Verified 02/19/19 14:04 Home Medications Home Medications Medication Instructions Recorded Confirmed Type clopidogrel 75 mg PO QAM #30 tab 01/09/19 02/26/19 Rx cyanocobalamin (vitamin B-12) 1,000 mcg PO QAM #90 tab 01/09/19 02/19/19 Rx [Vitamin B-12] folic acid 1 mg PO QAM #30 tab 01/09/19 02/19/19 Rx levothyroxine [Synthroid] 25 mcg PO DAILYBB #30 tab 01/09/19 02/26/19 Rx metoprolol succinate 25 mg PO DAILY #30 tab 01/09/19 02/26/19 Rx nitroglycerin 0.4 mg SUBLINGUAL Q5M PRN #1 btl 01/09/19 02/19/19 Rx pantoprazole 40 mg PO QAM #30 tab 01/09/19 02/26/19 Rx thiamine HCl (vitamin B1) 250 mg PO BID #60 tab 01/09/19 02/19/19 Rx gabapentin 200 mg PO HS 02/19/19 02/19/19 History lisinopril 5 mg PO DAILY 02/19/19 02/19/19 History atorvastatin 40 mg PO HS #14 tab 02/26/19 02/19/19 Rx benztropine 0.25 mg PO BID #60 tab 02/26/19 Rx chlordiazepoxide HCl 5 mg PO BID 7 Days #14 cap 02/26/19 Rx nicotine 14 mg TRANSDERMAL QAM #14 ea 02/26/19 Rx nicotine (polacrilex) [Nicorelief] 1 piece of gum MT PRN PRN #170 ea 02/26/19 Rx risperidone 1 mg PO QAM #30 tab 02/26/19 Rx risperidone 2 mg PO HS #30 tab 02/26/19 Rx Past Med/Surg History Medical History History of stroke STEMI (ST elevation myocardial infarction) (Acute) Medical non-compliance (Acute) Schizoaffective disorder, depressive type (Chronic) Surgical History H/O heart artery stent Family History Mother Diabetes Father , age 70 of pancreatic cancer. 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 Feels Safe at Home: No Is there a partner from a previous relationship who is making you feel unsafe now?: No Smoking Status: Current every day smoker Tobacco Type: cigarettes Cigarettes Per Day: 2-3 Second Hand Exposure: No Hx Alcohol Use: Yes Alcohol type: beer Alcohol Intake Frequency Comment: Three 32 ounce cans of Monae Light beer per day Hx Substance Use: No Review of Systems Review of Systems: All systems reviewed & are unremarkable except as noted in HPI & below Physical Exam Constitutional: well developed, well nourished and average body habitus; no acute distress and not ill appearing Slightly lethargic. Eyes: PERRL, conjunctivae normal, anicteric sclerae ENMT: external ear and nose normal, oropharynx normal Neck: trachea midline, no thyromegaly Respiratory: normal respiratory effort, lungs clear to auscultation Cardiovascular: RRR, no murmur, no edema Gastrointestinal (Abdomen): normal bowel sounds, soft, nontender, no hepatosplenomegaly Musculoskeletal: no cyanosis or clubbing, extremities motor strength 5/5 Skin: no rashes, warm and dry Neurologic: CN's II-XI intact bilaterally and moves all extremities; no focal motor deficits Psychiatric: Mood: + depressed mood Results & Data Laboratory Results 02/21/19 08:30 02/21/19 08:30 (1) Overdose Encounter type: initial encounter Injury intent: intentional self-harm Qualified Code(s): T50.902A - Poisoning by unspecified drugs, medicaments and biological substances, intentional self-harm, initial encounter (2) Schizoaffective disorder Schizoaffective disorder type: bipolar Qualified Code(s): F25.0 - Sc hizoaffective disorder, bipolar type
== END 2019-02-22 20:26 | DRG 918 ==
LOC: ED 10:50 → 2S 13:29 → SUATTDRO 13:29 → 2S 14:07 → 2E 02-20 19:28
DX: I45.81 Long QT syndrome; T43.592A Poisoning by other antipsychotics and neuroleptics, intentional self-harm, initial encounter; Z79.899 Other long term (current) drug therapy; K21.9 Gastro-esophageal reflux disease without esophagitis; F41.9 Anxiety disorder, unspecified; E78.5 Hyperlipidemia, unspecified; F10.10 Alcohol abuse, uncomplicated; Z91.14 Patient's other noncompliance with medication regimen; I10 Essential (primary) hypertension; I25.10 Atherosclerotic heart disease of native coronary artery without angina pectoris; Z79.02 Long term (current) use of antithrombotics/antiplatelets; F25.1 Schizoaffective disorder, depressive type; T43.212A Poisoning by selective serotonin and norepinephrine reuptake inhibitors, intentional self-harm, initial encounter; F17.210 Nicotine dependence, cigarettes, uncomplicated

== ENCOUNTER 2019-02-22 20:30 | Inpatient (IN) ==
[2019-02-22] MEDS ORDERED: BISMUTH SUBSALICYLATE PER ML OMNICELL CHARGE PO PRN (20:54)
[2019-02-22] MEDS ORDERED: NICOTINE POLACRILEX 2 MG GUM MT PRN (20:54)
[2019-02-22] MEDS ORDERED: ACETAMINOPHEN 325 MG TAB PO PRN (20:54)
[2019-02-22] MEDS ORDERED: SODIUM CHLORIDE 0.65% NA SOLN 45 ML (OCEAN) PRN (20:54)
[2019-02-22] MEDS ORDERED: MAGNESIUM HYDROXIDE SUSP 30 ML UDC PO PRN (20:54)
[2019-02-22] MEDS ORDERED: ALUMINUM/MAGNESIUM SUSP 30 ML UDC PO PRN (20:54)
[2019-02-22] MEDS ORDERED: NITROGLYCERIN SL 0.4 MG/TAB TAB SL PRN (21:03)
[2019-02-22] MEDS: HALOPERIDOL 5 MG TAB PO PRN (21:27)
[2019-02-22] MEDS: LORazepam 1 MG TAB PO PRN (21:27)
[2019-02-22] MEDS: POTASSIUM CHLORIDE 20 MEQ TABCR PO SCH (22:06)
[2019-02-22] MEDS: METOPROLOL TARTRATE 25 MG TAB PO SCH (22:06)
[2019-02-22] MEDS: ATORVASTATIN 40 MG TAB PO SCH (22:06)
[2019-02-22] MEDS: chlordiazePOXIDE HCl 25 MG CAP PO SCH (22:06)
[2019-02-23] MEDS ORDERED: NICOTINE 14 MG/24 HR PATCH TD SCH (09:00)
[2019-02-23] MEDS: ASPIRIN 81 MG ECTAB PO SCH (09:04)
[2019-02-23] MEDS: FOLIC ACID 1 MG TAB PO SCH (09:04)
[2019-02-23] MEDS: chlordiazePOXIDE HCl 25 MG CAP PO SCH (09:04)
[2019-02-23] MEDS: THIAMINE HCL 100 MG TAB PO SCH (09:04)
[2019-02-23] MEDS: METOPROLOL TARTRATE 25 MG TAB PO SCH ×2 (09:04→21:13)
[2019-02-23] MEDS: POTASSIUM CHLORIDE 20 MEQ TABCR PO SCH ×2 (09:04→21:13)
[2019-02-23] MEDS: NICOTINE POLACRILEX 2 MG GUM MT PRN (10:40)
[2019-02-23] MEDS: NICOTINE 21 MG/24 HR TDSY TD SCH (10:41)
[2019-02-23] MEDS: HALOPERIDOL 5 MG TAB PO PRN (12:19)
[2019-02-23] MEDS: LORazepam 1 MG TAB PO PRN (12:19)
[2019-02-23] MEDS ORDERED: risperiDONE 2 MG TABLET PO STA (15:40)
--- NOTE | 2019-02-23 15:52 | History & Physical ---
Date of Service February 23, 2019 Impression / Recommendations Impression This 48-year-old woman presents with a known diagnosis of schizoaffective disorder. She reports that she has become progressively more depressed over the course of at least the past 2 months, and for the past 1 or 2 months she has been experiencing auditory hallucinations that warn her that she and loved ones are in eminent danger. The patient reports that she has been depressed a number of times in the past, and has previously experienced auditory hallucinations in association with feeling depressed, but her current level of depression and the current intensity of the auditory hallucinations is significantly more pronounced than previously. The clinical picture is complicated by the fact that she describes herself "as an alcoholic" and says that at her peak alcohol consumption she drinks "about 30 beers" a day. Her claim is that she has recently reduced her beer intake to "2 or 3" a day, but because the patient is a poor historian she is being monitored for late alcohol withdrawal. Also, the patient acknowledges that she has a history of inhalant abuse, but does not respond to questions regarding the type of inhalant that she has abused in the frequency with which she abuses inhalants. (She also claims that her sister is currently incarcerated because of "huffing." She acknowledges that she took an overdose of trazodone and hydroxyzine. She notes that both bottles were "completely full" and that she took all of the pills, but she says that she is unable to estimate the amountbut she thought that it might be as many as 100 tablets or capsules of each. As noted in the admission record, the patient reports that she vomited the pills prior to her arrival in the emergency room on 02/19/2019, but it is not clear how many pills were vomited and how long it had been since she had ingested them. We will initially attempt to manage the patient's symptoms with antipsychotic medications. We have observed a clear link between exacerbations of the auditory hallucinations the patient's emotional distress. (1) Auditory hallucinations: 02/23/19 -The patient is greatly troubled by persistent auditory hallucinations. She has received several as needed dosages of antipsychotic medication since arriving on the unit. These dosages seems to have helped temporarily, but within a period of hours the perceptual disturbances have reemerged. -The patient tells us that she is hoping at some point in the future to be able to be employed to assist with the family's income, and she indicates that she may have been nonadherent with certain psychiatric medications, such as antipsychotic medications, because of excess sedation and the degree to which excess sedation interferes with her ability to perform job duties. We will keep this concern in mind when choosing medications and dosages. Present on Admission?: Yes (2) Schizoaffective disorder: 02/23/19 -Admit to the behavioral health unit with every 15 minute safety checks -Schedule patient for group and activity therapies -Obtain further information from the patient's family and outpatient provider - Began risperidone 1 mg every morning and 2 mg every afternoon. Schizoaffective disorder type: bipolar Qualified Code(s): F25.0 - Schizoaffective disorder, bipolar type Present on Admission?: Yes (3) Attempted suicide: 02/23/19 -The patient acknowledges that she intentionally took an overdose of a large quantity of trazodone and hydroxyzine, with an intent on killing herself. She has difficulty explaining what motivated her to commit suicide, but she does acknowledge that she has been feeling depressed for the past several months, and she is also greatly disturbed by the perceptual disturbances that she has been hearing, particularly auditory hallucinations that tell her that she and certain family members are in grave danger of physical harm or . -Today, the patient reports that she is not experiencing thoughts of suicide and "does not want to ." However, she continues to experience auditory hallucinations and remain quite depressed. Present on Admission?: Yes Inventory Assets Strengths: Supportive friend. Seeks employment. Motivated to care for her 12-year-old son. Dedicated to both of her children, one of whom is an incarcerated adult. Needs: Resolution of auditory hallucinations. Resolution of depression. Resolution of delusional Persico Messina delusional believes.. Risk Factors Assessment Male: No : Yes Do You Have Access To A Gun?: No Health Problems: Yes Mental Health Diagnoses: Yes Substance Use Disorders: Yes Previous Attempt: No Previous Psychiatric Hospitalization: No Hopelessness: Yes Smoker: Yes Protective Factors Assessment Zoroastrian Beliefs: Yes : No Responsible for Young Children: Yes Employed: No Stable Relationships: Yes Supportive Family: Yes Good Rapport with Provider: Yes Psychiatric History Identifying Data THADDEUS TIRADO ("Matilda") is a 48-year-old F who currently lives in [place] with a man whom she refers to as her former boyfriend. She has a history of schizoaffective disorder, depressed type, and was admitted on 02/22/19 20:30 on a 302 involuntary commitment following a suicide attempt by overdose. Chief Complaint "My boy is in trouble". History of Present Illness Thaddeus Tirado is a 48-year-old female admitted medically following what is believed to be an intentional overdose of trazodone and hydroxyzine on 02/19/19 and then transferred to the behavioral health unit on 02/22/19. Patient has a reported history of schizoaffective disorder and was last seen on our consult service in January 2019, when attempts were made to reestablish outpatient psychiatric treatment. The patient is a very poor historian, but indicates that she began to experience persistent auditory hallucinations, as well as depressed mood, "about a month or 2 ago." She notes that she has had similar episodes in the past, but denies any history of a previous suicide attempt. The patient has has a long history of alcohol abuse and inhalant abuse in combination with her mental health diagnosis. Psychiatric consultation is requested to evaluate for suicidality and make recommendations concerning consideration for inpatient psychiatric treatment after medical clearance. Patient had reported that the mendenhall were talking to her, and conversation was interrupted by patient's made to listen to what the mendenhall were saying. The reported content of the voices, which she says are both male and female, are that her incarcerated 31-year-old son is in great an immediate danger of being physically harmed or killed by the group home guards. Patient did report to nurse liaison that she did take excessive amounts of medications with a desire to end her life. Patient had reported that she feels that she needs to , but could not explain why, except to say that she feels very depressed. She reports a favorable response to antipsychotic me dications, but does not necessarily recall the names of them. She acknowledges that she sometimes does not take antipsychotic medications as prescribed because of excess sedation. 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 (The patient says she was recently fired from at [employer] because of poor work performance.) Although she could not recall the name of her previous medications, she was able to respond to names of medications as we presented them to her. She does note that she has taken haloperidol in the past and that it has helped with her auditory hallucinations, but she always felt that its "too strong." She does not recognize the name risperidone or Risperdal. She also does not recognize the name aripiprazole or Abilify. She does, however, report that she has taken quetiapine (Seroquel) in the past. Past Psychiatric History Previous Psych History: The patient is a poor historian, but indicates that she has been suffering from psychiatric symptoms "for a while now." She reports that she has had periods of depression in the past, but has not previously made suicide attempts. She also reports that she periodically experiences auditory h allucinations, and often fears for her own safety and the safety of loved ones. Current Psychiatric Diagnosis: Schizoaffective Outpatient Services: The patient is currently in outpatient psychiatric treatment at [facility] in [place]. She hence, but does not say, that she has not been adherent with her prescribed medications. Her report is that she most recently saw her outpatient psychiatrist in late January, but she cannot recall what medications he prescribed at the time. Previous Psych Admissions: The patient tells us that this is her first psychiatric hospitalization. She also reports that this is the first time that she has ever made a suicide attempt. Do You Have Access To A Gun?: No History of Previous Suicide Attempt: No Describe Attempts in the Past: Attempted OD 3 days ago Past Medication Trials: The patient reports that she has difficulty recalling the names of medications. She does remember taking haloperidol in the past ("it helps, but it it's too strong") and Seroquel (quetiapine). She also feels that quetiapine causes excess sedation. She tells us that she does not believe that she has ever taken risperidone, nor has she taken aripiprazole in the past. Past Head Trauma/Neuro History History of Concussion/Seizure: No Allergies Allergy/AdvReac Type Severity Reaction Status Date / Time No Known Allergies Allergy Verified 02/19/19 14:04 Home Medications Home Medications Medication Instructions Recorded Confirmed Type clopidogrel 75 mg PO QAM #30 tab 01/09/19 02/19/19 Rx cyanocobalamin (vitamin B-12) 1,000 mcg PO QAM #90 tab 01/09/19 02/19/19 Rx [Vitamin B-12] folic acid 1 mg PO QAM #30 tab 01/09/19 02/19/19 Rx levothyroxine [Synthroid] 25 mcg PO DAILYBB #30 tab 01/09/19 02/19/19 Rx metoprolol succinate 25 mg PO DAILY #30 tab 01/09/19 02/19/19 Rx nitroglycerin 0.4 mg SUBLINGUAL Q5M PRN #1 btl 01/09/19 02/19/19 Rx pantoprazole 40 mg PO QAM #30 tab 01/09/19 02/19/19 Rx thiamine HCl (vitamin B1) 250 mg PO BID #60 tab 01/09/19 02/19/19 Rx atorvastatin 40 mg PO HS 02/19/19 02/19/19 Rx gabapentin 200 mg PO HS 02/19/19 02/19/19 History lisinopril 5 mg PO DAILY 02/19/19 02/19/19 History chlordiazepoxide HCl 25 mg PO BID #14 cap 02/22/19 Rx nicotine 14 mg TRANSDERMAL QAM #7 ea 02/22/19 Rx Family History Family Mental Health History Comment: "All of them (mother, father, sister, and son)", "They're not diagnosed" Alcohol History Hx of Alcohol Use Over the Past 12 Months: Yes ("everyday, 2 big Millerlites") AUDIT Total Score: 22 Smoking Use Have You Smoked or Used Tobacco Products in the Last 30 Days: Yes tobacco type: cigarettes Smoking Status: Current every day smoker Smoking packs per day: 0.75 Substance History Hx of Prescription Med Misuse Over the Past 12 Months: No Hx of Over the Counter Med Misuse Over the Past 12 Months: No Hx of Inhalent Misuse Over the Past 12 Months: No Hx of Organic Substance Use Over the Past 12 Months: Yes (Marjiuana, "once in a blue alvarez") Hx of Illegal Substances/Street Drug Use Over Past 12 Months: Yes (meth, "been clean for 2 months") Problems as a Result of Past Substance Use: None Identified Personal History Living Arrangements: Trailer Highest Grade Completed: Did Not Graduate High School Highest Grade Completed Comment: 11th grade Marital Status: Single Number Of Children: 1 Beliefs That Will Affect Care: None Patient History Medical History History of stroke STEMI (ST elevation myocardial infarction) (Acute) Medical non-compliance (Acute) Schizoaffective disorder, depressive type (Chronic) Surgical History H/O heart artery stent Family History Mother Diabetes Father , age 70 of pancreatic cancer. 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 Feels Safe at Home: No Is there a partner from a previous relationship who is making you feel unsafe now?: No Smoking Status: Current every day smoker Tobacco Type: cigarettes Cigarettes Per Day: 2-3 Second Hand Exposure: No Hx Alcohol Use: Yes Alcohol type: beer Alcohol Intake Frequency Comment: Three 32 ounce cans of Monae Light beer per day Hx Substance Use: No Review of Systems Review of Systems: All systems reviewed & are unremarkable except as noted in HPI & below The review of systems and physical exam completed by Nely IZAGUIRRE and signed by Rick Lr MD on 02/22/19 has been reviewed and is accepted for purposes of medical clearance to the [facility]. Physical Exam Psychiatric: Orientation: oriented x 3 Apperance: + disheveled Eye Contact: + poor eye contact Motor Behavior: + psychomotor retardation The patient's speech is sparse, nonspontaneous, and monotonous. Affect: + constricted affect Mood: + depressed mood Thought Process: + thought blocking Thought Content: + delusions Patient believes that she is being "harassed" by voices that are coming to her through the mendenhall, and through the ventilation system. She also believes that her son, a 31-year-old man who is currently incarcerated, is at grave risk of being assaulted and murdered by group home guards, based on the content of her auditory hallucinations The patient reports that she is not currently experiencing suicidal thoughts, but notes that she remains depressed, anxious, and extremely worried. Hallucinations: + auditory hallucinations; no visual hallucinations, no tactile hallucinations and no gustatory hallucinations Cognition: remote memory grossly intact; + recent memory not intact and + attention not intact Estimated Intelligence: + below average estimated intelligence Insight: + poor insight Judgement: + poor judgement Vital Signs (Past 24 Hours): Last Vital Signs Temp 36.6 C 02/23/19 06:56 Pulse 89 02/23/19 06:57 Resp 18 02/23/19 06:56 BP 127/90 02/23/19 06:57 Pulse Ox 98 02/22/19 22:24 Results & Data Current Inpatient Medications Current Inpatient Medications: Current Inpatient Medications Acetaminophen (Tylenol) 650 mg PO Q4H PRN PRN Reason: Headache or Minor Fever Stop: 03/24/19 20:53 Al Hydrox/Mg Hydrox/Simethicone (Maalox) 30 ml PO Q4H PRN PRN Reason: GI Upset Stop: 03/24/19 20:53 Aspirin (Ecotrin Ectab) 81 mg PO QAM [facility] Stop: 03/25/19 08:59 Last Admin: 02/23/19 09:04 Dose: 81 mg Documented by: Atorvastatin Calcium (Lipitor) 80 mg PO HS [facility] Stop: 03/24/19 21:59 Last Admin: 02/22/19 22:06 Dose: 80 mg Documented by: Bismuth Subsalicylate (Kaopectate) 15 ml PO PRN PRN PRN Reason: Loose Stool Stop: 03/24/19 20:53 Chlordiazepoxide HCl (Librium) 10 mg PO BID [facility] Stop: 03/25/19 20:59 Folic Acid (Folvite) 1 mg PO QAM [facility] Stop: 03/25/19 08:59 Last Admin: 02/23/19 09:04 Dose: 1 mg Documented by: Haloperidol (Haldol) 5 mg PO Q4 PRN PRN Reason: Anxiety/Agitation Stop: 03/25/19 00:00 Last Admin: 02/23/19 12:19 Dose: 5 mg Documented by: Hydroxyzine HCl (Vistaril) 50 mg PO HSZ PRN PRN Reason: Insomnia Stop: 03/24/19 20:53 Hydroxyzine HCl (Vistaril) 25 mg PO Q4H PRN PRN Reason: Anxiety Stop: 03/24/19 20:53 Lorazepam (Ativan) 1 mg PO Q4 PRN PRN Reason: Anxiety/Agitation Stop: 03/24/19 21:00 Last Admin: 02/23/19 12:19 Dose: 1 mg Documented by: Magnesium Hydroxide (Milk Of Magnesia) 30 ml PO DAILY PRN PRN Reason: Heartburn Stop: 03/24/19 20:53 Metoprolol Tartrate (Lopressor) 25 mg PO BID [facility] Stop: 03/24/19 21:29 Last Admin: 02/23/19 09:04 Dose: 25 mg Documented by: Miscellaneous (Remove Nicoderm Patch) 1 ea N/A QPM [facility] Stop: 03/25/19 20:59 Miscellaneous (Remove Nicoderm Patch) 1 ea N/A HS [facility] Stop: 03/25/19 20:59 Nicotine (Nicoderm Cq) 14 mg TD QAM [facility] Stop: 03/25/19 08:59 Last Admin: 02/23/19 09:09 Dose: Not Given Documented by: Nicotine (Nicoderm Cq) 21 mg TD QAM [facility] Stop: 03/25/19 10:29 Last Admin: 02/23/19 10:41 Dose: 21 mg Documented by: Nicotine Polacrilex (Nicorette 2mg) 1 piece MT PRN PRN PRN Reason: nicotine cravings Stop: 03/25/19 10:15 Last Admin: 02/23/19 10:40 Dose: 1 piece Documented by: Nitroglycerin (Nitrostat) 0.4 mg SL UD PRN PRN Reason: Angina Stop: 03/24/19 21:02 Potassium Chloride (Klor-Con M20) 20 meq PO BID [facility] Stop: 03/24/19 21:29 Last Admin: 02/23/19 09:04 Dose: 20 meq Documented by: Risperidone (Risperdal) 2 mg PO NOW STA Stop: 02/23/19 15:41 Risperidone (Risperdal) 1 mg PO QAM [facility] Stop: 03/26/19 08:59 Risperidone (Risperdal) 2 mg PO HS [facility] Stop: 03/25/19 21:59 Sodium Chloride ([place] Nasal) 1 - 2 sprays NA PRN PRN PRN Reason: Nasal Dryness/Congestion Stop: 03/24/19 20:53 Thiamine HCl (Vitamin B-1) [facility] [place] Stop: 03/25/19 08:59 Last Admin: 02/23/19 09:04 Dose: 100 mg Documented by: CPT Code CPT Code Initial Hospital Care: [id number]
[2019-02-23] MEDS: ATORVASTATIN 40 MG TAB PO SCH (21:18)
[2019-02-23] MEDS: risperiDONE 2 MG TABLET PO SCH (21:24)
[2019-02-24] MEDS: NICOTINE 21 MG/24 HR TDSY TD SCH (09:01)
[2019-02-24] MEDS: POTASSIUM CHLORIDE 20 MEQ TABCR PO SCH ×2 (09:02→21:01)
[2019-02-24] MEDS: FOLIC ACID 1 MG TAB PO SCH (09:02)
[2019-02-24] MEDS: ASPIRIN 81 MG ECTAB PO SCH (09:03)
[2019-02-24] MEDS: METOPROLOL TARTRATE 25 MG TAB PO SCH ×2 (09:03→21:02)
[2019-02-24] MEDS: risperiDONE 1 MG TABLET PO SCH (09:03)
[2019-02-24] MEDS: THIAMINE HCL 100 MG TAB PO SCH (09:03)
--- NOTE | 2019-02-24 09:34 | Psychiatric Progress Note ---
Date of Service February 24, 2019 Impression / Recommendations Impression This 48-year-old woman presents with a known diagnosis of schizoaffective disorder. At time of admission she reports that she has become progressively more depressed over the course of at least the past 2 months, and for the past 1 or 2 months she has been experiencing auditory hallucinations that warn her that she and loved ones are in eminent danger. The patient reports that she has been depressed a number of times in the past, and has previously experienced auditory hallucinations in association with feeling depressed, but her current level of depression and the current intensity of the auditory hallucinations is significantly more pronounced than previously. The clinical picture is complicated by the fact that she describes herself "as an alcoholic" and says that at her peak alcohol consumption she drinks "about 30 beers" a day. Her claim is that she has recently reduced her beer intake to "2 or 3" a day, but because the patient is a poor historian she is being monitored for late alcohol withdrawal. Also, the patient acknowledges that she has a history of inhalant abuse, but does not respond to questions regarding the type of inhalant that she has abused in the frequency with which she abuses inhalants. (She also claims that her sister is currently incarcerated because of "huffing." She acknowledges that she took an overdose of trazodone and hydroxyzine. She notes that both bottles were "completely full" and that she took all of the pills, but she says that she is unable to estimate the amountbut she thought that it might be as many as 100 tablets or capsules of each. As noted in the admission record, the patient reports that she vomited the pills prior to her arrival in the emergency room on 02/19/2019, but it is not clear how many pills were vomited and how long it had been since she had ingested them. We will initially attempt to manage the patient's symptoms with antipsychotic medications. We have observed a clear link between exacerbations of the auditory hallucinations the patient's emotional distress. (1) Auditory hallucinations: 02/23/19 -The patient is greatly troubled by persistent auditory hallucinations. She has received several as needed dosages of antipsychotic medication since arriving on the unit. These dosages seems to have helped temporarily, but within a period of hours the perceptual disturbances have reemerged. -The patient tells us that she is hoping at some point in the future to be able to be employed to assist with the family's income, and she indicates that she may have been nonadherent with certain psychiatric medications, such as antipsychotic medications, because of excess sedation and the degree to which excess sedation interferes with her ability to perform job duties. We will keep this concern in mind when choosing medications and dosages. (2) Schizoaffective disorder: 02/23/19 -Admit to the behavioral health unit with every 15 minute safety checks -Schedule patient for group and activity therapies -Obtain further information from the patient's family and outpatient provider - Began risperidone 1 mg every morning and 2 mg every afternoon. 02/24 - AH and delusional thought content do appear improving today however may need to reduce riserpdal slightly as she is appearing a little drowsy and dizzy this AM. will monitor over course of day after receiving AM dose already this AM. (3) Attempted suicide: 02/23/19 -The patient acknowledges that she intentionally took an overdose of a large quantity of trazodone and hydroxyzine, with an intent on killing herself. She has difficulty explaining what motivated her to commit suicide, but she does acknowledge that she has been feeling depressed for the past several months, and she is also greatly disturbed by the perceptual disturbances that she has been hearing, particularly auditory hallucinations that tell her that she and certain family members are in grave danger of physical harm or . -Today, the patient reports that she is not experiencing thoughts of suicide and "does not want to ." However, she continues to experience auditory hallucinations and remain quite depressed. 02/24 - denying continued SI Inventory Assets Strengths: Supportive friend. Seeks employment. Motivated to care for her 12-year-old son. Dedicated to both of her children, one of whom is an incarcerated adult. Needs: Resolution of auditory hallucinations. Resolution of depression. Resolution of delusional Persico Messina delusional believes.. Risk Factors Assessment Male: No : Yes Do You Have Access To A Gun?: No Health Problems: Yes Mental Health Diagnoses: Yes Substance Use Disorders: Yes Previous Attempt: No Previous Psychiatric Hospitalization: No Hopelessness: Yes Smoker: Yes Protective Factors Assessment Holiness Beliefs: Yes : No Responsible for Young Children: Yes Employed: No Stable Relationships: Yes Supportive Family: Yes Good Rapport with Provider: Yes Interval History Chief Complaint "I have been here too long. I think I am ready to go". Review of Systems Notes denies restlessness or dystonia. + dizziness. Sleep Information Total Hours of Sleep: 8.5 Meal Information Percent Meal Consumed - Breakfast: 75 Percent Meal Consumed - Lunch: 100 Percent Meal Consumed - Dinner: 50 Subjective Subjective Patient was seen & assessed and interval progress reviewed with Treatment Team. Patient remains on a 302 admission which is up on the of the month. Status post overdose with notable history of alcohol use. Presented with auditory hallucinations and delusions. Per staff she is not tolerating groups. Did sleep well last night getting 8.2 hours after being started on Risperdal yesterday. This morning she complains of feeling "a little out of it." She looks drowsy and a little unsteady on her feet. She acknowledges mild dizziness. Denies dystonia. She is restless with her feet while seated which she denies is new. She denies recent alcohol use, huffing, or other recreational drug use to me today. She states that she is no longer hearing "noises." She describes the noises as trucks and cars going by. She denies suicidal ideation or intent today. "I do not want to hurt myself." When queried about what help she perceives that she needs she states "pill help I guess." She is being scheduled for family meeting with her boyfriend and I believe she is expecting a visit from her mother today as well. Physical Exam Psychiatric Orientation: oriented x 3 Apperance: + disheveled Eye Contact: + fair eye contact Motor Behavior: + psychomotor retardation (with some mild resltessness of LE in seated position) Speech: + abnormal rate/rhythm/volume of speech (soft. low tone) Affect: + blunted affect Mood: no depressed mood Thought Process: + thought blocking and + concrete thought process Thought Content: + delusions Suicidal Thoughts: denies suicidal thoughts, denies suicidal plan and denies suicidal intent Hallucinations: + auditory hallucinations; no visual hallucinations, no tactile hallucinations and no gustatory hallucinations Cognition: remote memory grossly intact; + recent memory not intact and + attention not intact Estimated Intelligence: + below average estimated intelligence Insight: + poor insight Judgement: + poor judgement Vital Signs (Past 24 Hours) Last Vital Signs Temp 36.5 C 02/24/19 06:48 Pulse 106 H 02/24/19 06:49 Resp 18 02/24/19 06:48 BP 118/87 02/24/19 06:49 Pulse Ox 98 02/22/19 22:24 Results & Data Current Inpatient Medications Current Inpatient Medications: Current Inpatient Medications Acetaminophen (Tylenol) 650 mg PO Q4H PRN PRN Reason: Headache or Minor Fever Stop: 03/24/19 20:53 Al Hydrox/Mg Hydrox/Simethicone (Maalox) 30 ml PO Q4H PRN PRN Reason: GI Upset Stop: 03/24/19 20:53 Aspirin ([facility]rin [facility]ab) [facility] Stop: 03/25/19 08:59 Last Admin: 02/24/19 09:03 Dose: 81 mg Documented by: Atorvastatin Calcium (Lipitor) 80 mg PO HS [facility] Stop: 03/24/19 21:59 Last Admin: 02/23/19 21:18 Dose: 80 mg Documented by: Bismuth Subsalicylate (Kaopectate) 15 ml PO PRN PRN PRN Reason: Loose Stool Stop: 03/24/19 20:53 Chlordiazepoxide HCl (Librium) 10 mg PO BID [facility] Stop: 03/25/19 20:59 Last Admin: 02/24/19 09:04 Dose: 10 mg Documented by: Folic Acid (Folvite) 1 mg PO [facility] Stop: 03/25/19 08:59 Last Admin: 02/24/19 09:02 Dose: 1 mg Documented by: Haloperidol (Haldol) 5 mg PO Q4 PRN PRN Reason: Anxiety/Agitation Stop: 03/25/19 00:00 Last Admin: 02/23/19 12:19 Dose: 5 mg Documented by: Hydroxyzine HCl (Vistaril) 50 mg PO HSZ PRN PRN Reason: Insomnia Stop: 03/24/19 20:53 Hydroxyzine HCl (Vistaril) 25 mg PO Q4H PRN PRN Reason: Anxiety Stop: 03/24/19 20:53 Lorazepam (Ativan) 1 mg PO Q4 PRN PRN Reason: Anxiety/Agitation Stop: 03/24/19 21:00 Last Admin: 02/23/19 12:19 Dose: 1 mg Documented by: Magnesium Hydroxide (Milk Of Magnesia) 30 ml PO DAILY PRN PRN Reason: Heartburn Stop: 03/24/19 20:53 Metoprolol Tartrate (Lopressor) 25 mg PO BID [facility] Stop: 03/24/19 21:29 Last Admin: 02/24/19 09:03 Dose: 25 mg Documented by: Miscellaneous (Remove Nicoderm Patch) 1 ea N/A QPM [facility] Stop: 03/25/19 20:59 Last Admin: 02/23/19 21:21 Dose: 1 ea Documented by: Miscellaneous (Remove Nicoderm Patch) 1 ea N/A HS [facility] Stop: 03/25/19 20:59 Last Admin: 02/23/19 21:24 Dose: Not Given Documented by: Nicotine (Nicoderm Cq) 14 [facility] Stop: 03/25/19 08:59 Last Admin: 02/23/19 09:09 Dose: Not Given Documented by: Nicotine (Nicoderm Cq) 21 mg [facility] Stop: 03/25/19 10:29 Last Admin: 02/24/19 09:01 Dose: 21 mg Documented by: Nicotine Polacrilex (Nicorette 2mg) 1 piece MT PRN PRN PRN Reason: nicotine cravings Stop: 03/25/19 10:15 Last Admin: 02/23/19 10:40 Dose: 1 piece Documented by: Nitroglycerin (Nitrostat) 0.4 mg SL UD PRN PRN Reason: Angina Stop: 03/24/19 21:02 Potassium Chloride (Klor-Con M20) 20 meq PO BID [facility] Stop: 03/24/19 21:29 Last Admin: 02/24/19 09:02 Dose: 20 meq Documented by: Risperidone (Risperdal) 1 mg PO [facility] Stop: 03/26/19 08:59 Last Admin: 02/24/19 09:03 Dose: 1 mg Documented by: Risperidone (Risperdal) 2 mg PO [facility] Stop: 03/25/19 21:59 Last Admin: 02/23/19 21:24 Dose: 2 mg Documented by: Sodium Chloride ([place] Nasal) 1 - 2 sprays NA PRN PRN PRN Reason: Nasal Dryness/Congestion Stop: 03/24/19 20:53 Thiamine HCl (Vitamin B-1) 100 mg PO [facility] Stop: 03/25/19 08:59 Last Admin: 02/24/19 09:03 Dose: 100 mg Documented by: Post Discharge Appointments Primary Care Physician Name Of Family Doctor: Carissa Therapist Name of Therapist: nannette current CPT Code CPT Code 47640 (1) Schizoaffective disorder Schizoaffective disorder type: bipolar Qualified Code(s): F25.0 - Schizoa ffective disorder, bipolar type
[2019-02-24] MEDS: NICOTINE POLACRILEX 2 MG GUM MT PRN (10:22)
[2019-02-24] MEDS: HALOPERIDOL 5 MG TAB PO PRN (13:11)
[2019-02-24] MEDS: LORazepam 1 MG TAB PO PRN ×2 (13:11→19:01)
[2019-02-24] MEDS: risperiDONE 2 MG TABLET PO SCH (21:02)
[2019-02-24] MEDS: ATORVASTATIN 40 MG TAB PO SCH (21:02)
[2019-02-25] MEDS: NICOTINE 21 MG/24 HR TDSY TD SCH (06:42)
[2019-02-25] MEDS: FOLIC ACID 1 MG TAB PO SCH (07:55)
[2019-02-25] MEDS: THIAMINE HCL 100 MG TAB PO SCH (07:55)
[2019-02-25] MEDS: POTASSIUM CHLORIDE 20 MEQ TABCR PO SCH ×2 (07:55→21:10)
[2019-02-25] MEDS: risperiDONE 1 MG TABLET PO SCH (07:55)
[2019-02-25] MEDS: METOPROLOL TARTRATE 25 MG TAB PO SCH ×2 (07:55→21:12)
[2019-02-25] MEDS: ASPIRIN 81 MG ECTAB PO SCH (07:55)
[2019-02-25] MEDS: LORazepam 1 MG TAB PO PRN (11:38)
--- NOTE | 2019-02-25 11:38 | Psychiatric Progress Note ---
Date of Service February 25, 2019 Impression / Recommendations Impression Notable improvement in thought cohesion, reduction in paranoia, and resolution of auditory hallucinations in last 2 days on Risperdal. She is focused on discharge this morning. 302 will on the . (1) Auditory hallucinations: 02/23/19 -The patient is greatly troubled by persistent auditory hallucinations. She has received several as needed dosages of antipsychotic medication since arriving on the unit. These dosages seems to have helped temporarily, but within a period of hours the perceptual disturbances have reemerged. -The patient tells us that she is hoping at some point in the future to be able to be employed to assist with the family's income, and she indicates that she may have been nonadherent with certain psychiatric medications, such as anti psychotic medications, because of excess sedation and the degree to which excess sedation interferes with her ability to perform job duties. We will keep this concern in mind when choosing medications and dosages. 02/25 -AH not apparent this AM (2) Schizoaffective disorder: 02/23/19 -Admit to the behavioral health unit with every 15 minute safety checks -Schedule patient for group and activity therapies -Obtain further information from the patient's family and outpatient provider - Began risperidone 1 mg every morning and 2 mg every afternoon. 02/24 - AH and delusional thought content do appear improving today however may need to reduce riserpdal slightly as she is appearing a little drowsy and dizzy this AM. will monitor over course of day after receiving AM dose already this AM. 02/25 - now seems to be tolerating the risperdal well. as she was receiving some cogentin in combination w/ haldol previously, will add cogentin 0.25mg po bid for EPS prophylaxis today following risperdal start. -pt counseled re importance of etoh abstinence to reduce risk for relapse (3) Attempted suicide: 02/23/19 -The patient acknowledges that she intentionally took an overdose of a large quantity of trazodone and hydroxyzine, with an intent on killing herself. She has difficulty explaining what motivated her to commit suicide, but she does acknowledge that she has been feeling depressed for the past several months, and she is also greatly disturbed by the perceptual disturbances that she has been hearing, particularly auditory hallucinations that tell her that she and certain family members are in grave danger of physical harm or . -Today, the patient reports that she is not experiencing thoughts of suicide and "does not want to ." However, she continues to experience auditory hallucinations and remain quite depressed. 02/24 - denying continued SI 02/25 - SI remains resolved Inventory Assets Strengths: Supportive friend. Seeks employment. Motivated to care for her 12-year-old son. Dedicated to both of her children, one of whom is an incarcerated adult. Needs: Resolution of auditory hallucinations. Resolution of depression. Resolution of delusional Persico Messina delusional believes.. Risk Factors Assessment Male: No : Yes Do You Have Access To A Gun?: No Health Problems: Yes Mental Health Diagnoses: Yes Substance Use Disorders: Yes Previous Attempt: No Previous Psychiatric Hospitalization: No Hopelessness: Yes Smoker: Yes Protective Factors Assessment Yazidi Beliefs: Yes : No Responsible for Young Children: Yes Employed: No Stable Relationships: Yes Supportive Family: Yes Good Rapport with Provider: Yes Interval History Chief Complaint "I feel pretty good today. We finally found something that works". Review of Systems Sleep Information Total Hours of Sleep: 10.25 Meal Information Percent Meal Consumed - Breakfast: 90 Percent Meal Consumed - Lunch: 90 Percent Meal Consumed - Dinner: 100 Subjective Subjective Patient was seen & assessed and interval progress reviewed with Treatment Team. Per staff, patient slept well last night. Looking brighter on the unit. Not demonstrating active paranoia. Showing improved eye contact. Appears restless constantly moving her lower extremities. Outside records from Dr. Nuñez reviewed which indicated diagnosis of schizoaffective disorder, unspecified anxiety disorder, and insomnia. Patient initially endorses good mood, denies anxiety, and denies paranoia. She states that she "has to do the right thing" which she believes is splitting up with her boyfriend. She states that she has to be discharged today to make some phone calls. When informed that her 302 terminates on the , she was accepting but then indicated that she was feeling anxious (which she had previously denied.) She consistently denied feeling restless and states that her feet are always moving at home. The movement appears somewhat choreiform and could certainly be tardive in nature. She denies dystonia. She denies dizziness. Physical Exam Psychiatric Orientation: cooperative Apperance: appeared stated age Eye Contact: + fair eye contact Motor Behavior: + EPS (squirming movements of feet at rest) Speech: + abnormal rate/rhythm/volume of speech (remains monotoned but spontaneious) Affect: + blunted affect "pretty good" inconsistent Thought Content: + preoccupation (discharge); not paranoid Suicidal Thoughts: denies suicidal thoughts Hallucinations: no auditory hallucinations and no visual hallucinations Cognition: + recent memory not intact Insight: + poor insight Judgement: + poor judgement Vital Signs (Past 24 Hours) Last Vital Signs Temp 36.5 C 02/25/19 06:00 Pulse 97 H 02/25/19 06:28 Resp 18 02/25/19 06:00 BP 117/80 02/25/19 06:28 Pulse Ox 98 02/22/19 22:24 Results & Data Current Inpatient Medications Current Inpatient Medications: Current Inpatient Medications Acetaminophen (Tylenol) 650 mg PO Q4H PRN PRN Reason: Headache or Minor Fever Stop: 03/24/19 20:53 Al Hydrox/Mg Hydrox/Simethicone (Maalox) 30 ml PO Q4H PRN PRN Reason: GI Upset Stop: 03/24/19 20:53 Aspirin (Ecotrin Ectab) 81 mg PO QAM [facility] Stop: 03/25/19 08:59 Last Admin: 02/25/19 07:55 Dose: 81 mg Documented by: Atorvastatin Calcium (Lipitor) 80 mg PO HS [facility] Stop: 03/24/19 21:59 Last Admin: 02/24/19 21:02 Dose: 80 mg Documented by: Bismuth Subsalicylate (Kaopectate) 15 ml PO PRN PRN PRN Reason: Loose Stool Stop: 03/24/19 20:53 Chlordiazepoxide HCl (Librium) 10 mg PO BID [facility] Stop: 03/25/19 20:59 Last Admin: 02/25/19 07:58 Dose: 10 mg Documented by: Folic Acid (Folvite) 1 mg PO QAM [facility] Stop: 03/25/19 08:59 Last Admin: 02/25/19 07:55 Dose: 1 mg Documented by: Haloperidol (Haldol) 5 mg PO Q4 PRN PRN Reason: Anxiety/Agitation Stop: 03/25/19 00:00 Last Admin: 02/24/19 13:11 Dose: 5 mg Documented by: Hydroxyzine HCl (Vistaril) 50 mg PO HSZ PRN PRN Reason: Insomnia Stop: 03/24/19 20:53 Hydroxyzine HCl (Vistaril) 25 mg PO Q4H PRN PRN Reason: Anxiety Stop: 03/24/19 20:53 Last Admin: 02/24/19 16:07 Dose: 25 mg Documented by: Lorazepam (Ativan) 1 mg PO Q4 PRN PRN Reason: Anxiety/Agitation Stop: 03/24/19 21:00 Last Admin: 02/24/19 19:01 Dose: 1 mg Documented by: Magnesium Hydroxide (Milk Of Magnesia) 30 ml PO DAILY PRN PRN Reason: Heartburn Stop: 03/24/19 20:53 Metoprolol Tartrate (Lopressor) 25 mg PO BID [facility] Stop: 03/24/19 21:29 Last Admin: 02/25/19 07:55 Dose: 25 mg Documented by: Miscellaneous (Remove Nicoderm Patch) 1 ea N/A QPM [facility] Stop: 03/25/19 20:59 Last Admin: 02/24/19 21:07 Dose: 1 ea Documented by: Miscellaneous (Remove Nicoderm Patch) 1 ea N/A HS [facility] Stop: 03/25/19 20:59 Last Admin: 02/24/19 21:07 Dose: Not Given Documented by: Nicotine (Nicoderm Cq) 14 mg TD QAM [facility] Stop: 03/25/19 08:59 Last Admin: 02/23/19 09:09 Dose: Not Given Documented by: Nicotine (Nicoderm Cq) 21 mg TD QAM [facility] Stop: 03/25/19 10:29 Last Admin: 02/25/19 06:42 Dose: 21 mg Documented by: Nicotine Polacrilex (Nicorette 2mg) 1 piece MT PRN PRN PRN Reason: nicotine cravings Stop: 03/25/19 10:15 Last Admin: 02/24/19 10:22 Dose: 1 piece Documented by: Nitroglycerin (Nitrostat) 0.4 mg SL UD PRN PRN Reason: Angina Stop: 03/24/19 21:02 Potassium Chloride (Klor-Con M20) 20 meq PO BID [facility] Stop: 03/24/19 21:29 Last Admin: 02/25/19 07:55 Dose: 20 meq Documented by: Risperidone (Risperdal) 1 mg PO QAM [facility] Stop: 03/26/19 08:59 Last Admin: 02/25/19 07:55 Dose: 1 mg Documented by: Risperidone (Risperdal) 2 mg PO HS [facility] Stop: 03/25/19 21:59 Last Admin: 02/24/19 21:02 Dose: 2 mg Documented by: Sodium Chloride ([place] Nasal) 1 - 2 sprays NA PRN PRN PRN Reason: Nasal Dryness/Congestion Stop: 03/24/19 20:53 Thiamine HCl (Vitamin B-1) 100 mg PO QAM [facility] Stop: 03/25/19 08:59 Last Admin: 02/25/19 07:55 Dose: 100 mg Documented by: Post Discharge Appointments Primary Care Physician Name Of Family Doctor: Carissa Therapist Name of Therapist: nannette current CPT Code CPT Code 76061 (1) Schizoaffective disorder Schizoaffective disorder type: bipolar Qualified Code(s): F25.0 - Schizoaffective disorder, bipolar type
[2019-02-25] MEDS: NICOTINE POLACRILEX 2 MG GUM MT PRN (11:59)
[2019-02-25] MEDS: BENZTROPINE MESYLATE 0.5 MG TAB PO SCH ×2 (12:24→21:09)
[2019-02-25] MEDS: HALOPERIDOL 5 MG TAB PO PRN (12:24)
[2019-02-25] MEDS: risperiDONE 2 MG TABLET PO SCH (21:11)
[2019-02-25] MEDS: ATORVASTATIN 40 MG TAB PO SCH (21:12)
[2019-02-26] MEDS: POTASSIUM CHLORIDE 20 MEQ TABCR PO SCH (08:02)
[2019-02-26] MEDS: BENZTROPINE MESYLATE 0.5 MG TAB PO SCH (08:03)
[2019-02-26] MEDS: ASPIRIN 81 MG ECTAB PO SCH (08:03)
[2019-02-26] MEDS: METOPROLOL TARTRATE 25 MG TAB PO SCH (08:03)
[2019-02-26] MEDS: risperiDONE 1 MG TABLET PO SCH (08:03)
[2019-02-26] MEDS: THIAMINE HCL 100 MG TAB PO SCH (08:03)
[2019-02-26] MEDS: FOLIC ACID 1 MG TAB PO SCH (08:03)
[2019-02-26] MEDS: NICOTINE 21 MG/24 HR TDSY TD SCH (08:04)
--- NOTE | 2019-02-26 11:36 | Discharge Summary ---
Date of Service February 26, 2019 History of Present Illness Tarun Alcala is a 48-year-old female admitted medically following what is believed to be an intentional overdose of trazodone and hydroxyzine on 02/19/19 and then transferred to the behavioral health unit on 02/22/19. Patient has a reported history of schizoaffective disorder and was last seen on our consult service in January 2019, when attempts were made to reestablish outpatient psychiatric treatment. The patient is a very poor historian, but indicates that she began to experience persistent auditory hallucinations, as well as depressed mood, "about a month or 2 ago." She notes that she has had similar episodes in the past, but denies any history of a previous suicide attempt. The patient has has a long history of alcohol abuse and inhalant abuse in combination with her mental health diagnosis. Psychiatric consultation is requested to evaluate for suicidality and make recommendations concerning consideration for inpatient psychiatric treatment after medical clearance. Patient had reported that the mendenhall were talking to her, and conversation was interrupted by patient's made to listen to what the mendenhall were saying. The reported content of the voices, which she says are both male and female, are that her incarcerated 31-year-old son is in great an immediate danger of being physically harmed or killed by the [facility] guards. Patient did report to nurse liaison that she did take excessive amounts of medications with a desire to end her life. Patient had reported that she feels that she needs to , but could not explain why, except to say that she feels very depressed. She reports a favorable response to antipsychotic medications, but does not necessarily recall the names of them. She acknowledges that she sometimes does not take antipsychotic medications as prescribed because of excess sedation. 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 (The patient says she was recently fired from at [employer] because of poor work performance.) Although she could not recall the name of her previous medications, she was able to respond to names of medications as we presented them to her. She does note that she has taken haloperidol in the past and that it has helped with her auditory hallucinations, but she always felt that its "too strong." She does not recognize the name risperidone or Risperdal. She also does not recognize the name aripiprazole or Abilify. She does, however, report that she has taken quetiapine (Seroquel) in the past. Physical Exam Psychiatric Orientation: oriented x 3 Apperance: appropriately dressed and appropriately groomed Eye Contact: + fair eye contact Motor Behavior: no abnormal motor movements Speech: normal rate/rhythm/volume of speech Affect: + anxious affect "I found the right medicine. I feel good." Thought Process: goal directed thought process and linear/logical thought process Thought Content: reality based without delusions Suicidal Thoughts: denies suicidal thoughts Homicidal Thoughts: denies homicidal thoughts Hallucinations: no auditory hallucinations Patient reports that her auditory hallucinations, present admission have now completely resolved. The patient's memory regarding several recent events appears to be somewhat "shaky." She explains that in the days leading up to her admission and during the part of her stay she was "not thinking clearly," and, for example, initially forgot that her former boyfriend/housemate is possibly facing imprisonment for DUI, beginning 03/01/2019but now remembers. Estimated Intelligence: consistent with education level Insight: + fair insight Judgement: + fair judgement Vital Signs (Past 24 Hours) Last Vital Signs Temp 36.6 C 02/26/19 06:00 Pulse 79 02/26/19 06:32 Resp 18 02/26/19 06:00 BP 104/72 02/26/19 06:32 Pulse Ox 98 02/22/19 22:24 Principal Diagnosis Schizoaffective disorder Psychiatric Data During the course of hospitalization the patient was offered various modalities of psychiatric treatment and education. She was initially placed on Librium 25 mg twice daily because of the possibility of alcohol withdrawalgiven her report that she had been using large quantities of alcohol prior to admission, but that she had recently decreased her alcohol consumption. The patient was anxious, but was not found to be experiencing withdrawal symptoms and Librium was discontinued. Initially, the patient was quite disorganized and was actively experiencing auditory hallucinations. These hallucinations were largely of a persecutory type and, among other things, told her that her incarcerated adult son was at eminent risk of being killed or severely assaulted by [facility] guards. The content of the auditory hallucinations also included messages to the patient that she, herself, was in danger. She was started on risperidone 1 mg in the morning 2 mg at bedtime, and responded quite rapidly to this intervention. Her affect brightened, her thought processes cleared, her auditory hallucinations reportedly resolved) and no further evidence of response to internal stimuli was observed by staff), her speech became fluent and spontaneous, and she indicated that she was able to recall certain things that she had forgotten about while impaired. Furthermore, the patient consistently reported that she was not having any suicidal thoughts, and developed an adequate safety plan for the community. She agreed to a period of convalescence at home, and made arrangements with her family to care for her 12-year-old son. She refused to consider further psychiatric hospitalization, and no longer met criteria for inpatient stay. Following a meeting with the patient's mother (and stepfather) a plan to discharge the patient to the community he was finalized. Although not formally listed as a diagnosis, the patient acknowledged that she has a history of episodically abusing inhalants but nasal insufflation, but also indicates that she has not done so recently. Day of Discharge Assessment On the day of discharge the patient was found to be appropriately dressed and groomed. She was fully cooperative with the interview. She describes her mood as "much better," but was observed to be somewhat restless. She frequently shifted her position while standing and coarsely struck her lower extremities, as if and anxiety. There is no evidence of cogwheel rigidity on testing, and the patient reports that this form of movement is "normal for [her] when [she is] feeling better." Nevertheless, and because she reportedly had experienced extraparametal symptoms on haloperidol, benztropine 0.25 mg twice a day was added to the patient medication regimen. Patient describes her mood as "much better" and "good." Her affect is fairly bright, but anxious. Her thought processes demonstrate tight association. No delusional material was identified and the patient's thought content, and she reports that all perceptual disturbances (auditory hallucinations, persecutory type) have resolved. The patient has consistently denied any suicidal thoughts since admission, and at discharge the patient reiterates that she is not feeling suicidal and is able to identify a plan to contact her mother or her psychiatrist or proceed to the nearest emergency room should suicidal thoughts recur. The patient's judgment and insight are fair. She understands that she carries a diagnosis of schizoaffective disorder and acquire is ongoing treatment. She is also willing to ask for assistance from her family. The patient asks to be discharged from the hospital, and she no longer meets criteria for inpatient Transition of Care Transition Of Care Record: was reviewed with the patient Advance Directives Advance Directives Information Provided: Yes Advance Directives: No Mental Health Advance Directive: No Advance Directives on File: No Living Will: No Power of Credit Rating Inspector: No Advance Directives Reason:: Declines as Mental Health Visit. Risk Factors Assessment Male: No : Yes Do You Have Access To A Gun?: No Health Problems: Yes Mental Health Diagnoses: Yes Substance Use Disorders: Yes Previous Attempt: No Previous Psychiatric Hospitalization: No Hopelessness: Yes Smoker: Yes Protective Factors Assessment Mosque Beliefs: Yes : No Responsible for Young Children: Yes Employed: No Stable Relationships: Yes Supportive Family: Yes Good Rapport with Provider: Yes Hospital Course (1) Auditory hallucinations: 02/23/19 -The patient is greatly troubled by persistent auditory hallucinations. She has received several as needed dosages of antipsychotic medication since arriving on the unit. These dosages seems to have helped temporarily, but within a period of hours the perceptual disturbances have reemerged. -The patient tells us that she is hoping at some point in the future to be able to be employed to assist with the family's income, and she indicates that she may have been nonadherent with certain psychiatric medications, such as antipsychotic medications, because of excess sedation and the degree to which excess sedation interferes with her ability to perform job duties. We will keep this concern in mind when choosing medications and dosages. 02/25 -AH not apparent this AM 02/26 -The patient does not appear to responding to internal stimuli, and she reports complete resolution of the auditory hallucinations that she was experiencing at admission. The patient states, "risperidone is definitely the right medication for me. The voices have completely stopped, and I feel much better." (2) Schizoaffective disorder: 02/23/19 -Admit to the behavioral health unit with every 15 minute safety checks -Schedule patient for group and activity therapies -Obtain further information from the patient's family and outpatient provider - Began risperidone 1 mg every morning and 2 mg every afternoon. 02/24 - AH and delusional thought content do appear improving today however may need to reduce riserpdal slightly as she is appearing a little drowsy and dizzy this AM. will monitor over course of day after receiving AM dose already this AM. 02/25 - now seems to be tolerating the risperdal well. as she was receiving some cogentin in combination w/ haldol previously, will add cogentin 0.25mg po bid for EPS prophylaxis today following risperdal start. -pt counseled re importance of etoh abstinence to reduce risk for relapse 02/26 -Continues to tolerate risperidone well. As above, benztropine 0.25 mg twice daily was added for EPS prophylaxis given her reported history of EPS while taking haloperidol. No cogwheel rigidity was identified on testing today, and although the patient does appear to be somewhat restless, the patient reports that this is something that is present for her at baseline, with or without medications. (3) Attempted suicide: 02/23/19 -The patient acknowledges that she intentionally took an overdose of a large quantity of trazodone and hydroxyzine, with an intent on killing herself. She has difficulty explaining what motivated her to commit suicide, but she does acknowledge that she has been feeling depressed for the past several months, and she is also greatly disturbed by the perceptual disturbances that she has been hearing, particularly auditory hallucinations that tell her that she and certain family members are in grave danger of physical harm or . -Today, the patient reports that she is not experiencing thoughts of suicide and "does not want to ." However, she continues to experience auditory hallucinations and remain quite depressed. 02/24 - denying continued SI 02/25 - SI remains resolved 02/26 -The patient reports no thoughts of suicide, is future oriented, and is able to accurately describe her safety plan which will include contacting her mother, her psychiatrist or proceeding to the nearest emergency room in the event of recurrence of her suicidal thoughts. Post Discharge Appointments Primary Care Physician Name Of Family Doctor: Carissa Therapist Name of Therapist: denies current Discharge Plan Discharge Items Patient Disposition: Home - Self-Care Reason For Visit: SCHIZOAFFECTIVE DISORDER Discharge Diagnosis: Schizoaffective disorder Discharge Goals: Improve disease control, Improve function and Learn about illness Activity: Resume your previous activity Non-emergency contact: Primary Care Provider Call non-emergency contact if: you have any medication questions and your symptoms worsen Follow-up/Referrals: Juan Carlos Martinez MD [Primary Care Provider] - Diet: Regular Addtl Provider Instructions: Continued smoking cessation efforts. Do not use alcohol, inhalants, or other drugs. Access safety plan as needed. Prescriptions: New nicotine (polacrilex) [Nicorelief] 2 mg Gum 1 piece of gum MT PRN PRN (Reason: Smoking Cessation) Qty: 170 RF: 0 benztropine 0.5 mg Tablet 0.25 mg PO BID Qty: 60 RF: 0 chlordiazepoxide HCl 5 mg capsule 5 mg PO BID 7 Days Qty: 14 RF: 0 risperidone 2 mg Tablet 2 mg PO HS Qty: 30 RF: 0 risperidone 1 mg Tablet 1 mg PO QAM Qty: 30 RF: 0 nicotine 7 mg/24 hr Patch 24 Hour 14 mg transdermal QAM Qty: 14 RF: 0 Continued clopidogrel 75 mg Tablet 75 mg PO QAM Qty: 30 RF: 1 levothyroxine [Synthroid] 25 mcg Tablet 25 mcg PO DAILYBB Qty: 30 RF: 1 cyanocobalamin (vitamin B-12) [Vitamin B-12] 500 mcg Tablet 1,000 mcg PO QAM Qty: 90 RF: 3 folic acid 1 mg Tablet 1 mg PO QAM Qty: 30 RF: 0 thiamine HCl (vitamin B1) 250 mg tablet 250 mg PO BID Qty: 60 RF: 0 metoprolol succinate 25 mg tablet extended release 24 hr 25 mg PO DAILY Qty: 30 RF: 1 pantoprazole 40 mg tablet,delayed release (DR/EC) 40 mg PO QAM Qty: 30 RF: 1 nitroglycerin 0.4 mg tablet, sublingual 0.4 mg sublingual Q5M PRN (Reason: chest pain) Qty: 1 RF: 0 lisinopril 5 mg tablet 5 mg PO DAILY RF: 0 gabapentin 100 mg capsule 200 mg PO HS RF: 0 atorvastatin 40 mg tablet 40 mg PO HS Qty: 14 RF: 0 Discontinued chlordiazepoxide HCl 25 mg Capsule 25 mg PO BID Qty: 14 RF: 0 nicotine 7 mg/24 hr Patch 24 Hour 14 mg transdermal QAM Qty: 7 RF: 0 Stand-Alone Forms: [facility] Discharge Orders: Discharge Order (Routine); Ordered 02/26/19 Ordered By: Stew Harrison Admission Data Admit Date/Time: 02/22/19 20:30 Attending Provider: Stew Harrison Admit Provider: Roseanne Lopez Primary Care Provider: Juan Carlos Martinez V. Service: Psychiatry Other Pending Studies at Discharge: No
[2019-02-26] MEDS ORDERED: DESTROY THIS MEDICATION ONE (14:52)
== END 2019-02-26 15:09 | disposition home or self-care (01) | DRG 885 ==
LOC: 3S 20:30

== ENCOUNTER 2021-03-01 11:56 | Inpatient (IN) ==
[2021-03-01 12:43] LABS: Basophils # (auto) 0.04 K/uL (0-0.2); Basophils % (auto) 0.6 %; Eosinophils # (auto) 0.03 K/uL (0-0.5); Eosinophils % (auto) 0.4 %; Hematocrit (blood only) 46.7 % (37-47); Hemoglobin 16.4 g/dL (12.0-16.0); Immature Granulocytes # (auto) 0.01 K/uL (0.00-0.02); Immature Granulocytes % (auto) 0.1 %; Lymphocytes # (auto) 1.76 K/uL (1.2-3.4); Lymphocytes % (auto) 24.7 %; Mean Corpuscular Hemoglobin 29.5 pg (25-34); Mean Corpuscular Hgb Conc 35.1 g/dL (32-36); Mean Platelet Volume 11.9 fL (7.4-10.4); Monocytes # (auto) 0.63 K/uL (0.11-0.59); Monocytes % (auto) 8.8 %; Neutrophils # (auto) 4.65 K/uL (1.4-6.5); Neutrophils % (auto) 65.4 %; Platelet Count 339 K/uL (130-400); RDW Coefficient of Variation 15.1 % (11.5-14.5); RDW Standard Deviation 46.6 fL (36.4-46.3); Red Blood Count 5.56 M/uL (4.2-5.4); White Blood Count 7.12 K/uL (4.8-10.8)
[2021-03-01 13:00] LABS: Albumin Level 3.6 gm/dl (3.4-5.0); BUN Creatinine Ratio 10.9 (10-20); Calcium 9.3 mg/dl (8.5-10.1); Creatinine Clr Calc Pharmacy 111.9 ml/min; Est GFR (African American) 117.1 ml/min; Potassium 3.6 mmol/L (3.5-5.1)
[2021-03-01 13:05] LABS: Acetaminophen < 2 ug/ml (10-30)
[2021-03-01 13:06] LABS: Salicylate 3.3 mg/dl (2.8-20)
[2021-03-01 13:10] LABS: Appearance Urine Turbid (Clear); Bacteria Urine Automated Negative (Negative); Blood Urine Negative (Negative); Color Urine Dark Yellow; Epithelial Cell Urine Auto >30 /lpf (0-5); Glucose Urine UA Negative (Negative); Ketones Urine 1+ (Negative); Leukocyte Esterase Urine 1+ (Negative); Nitrite Urine Negative (Negative); Protein Urine Trace (Negative); RBC Urine Automated 0-4 /hpf (0-4); Specific Gravity Urine 1.023 (1.000-1.030); Urobilinogen Urine Negative (Negative); pH Urine 5.5 (4.5-7.5)
[2021-03-01 13:10] LABS: Albumin Globulin Ratio 0.9 (0.9-2); Bilirubin,Total 0.8 mg/dl (0.2-1); Globulin 3.8 gm/dl (2.5-4.0); Thyroid Stimulating Hormone 3.84 uIu/ml (0.300-4.500); Total Protein 7.4 gm/dl (6.4-8.2)
[2021-03-01 13:24] LABS: Bilirubin Urine 1+ (Negative)
[2021-03-01 13:34] LABS: Amphetamines+Metham, Urine Pos (Neg); Barbiturates, Urine Neg (Neg); Benzodiazepine, Urine Neg (Neg); Cocaine, Urine Neg (Neg); MDMA (Ecstacy), Urine Pos (Neg); Methadone, Urine Neg (Neg); Opiate, Urine Neg (Neg); Phencyclidine, Urine Neg (Neg)
[2021-03-01 13:37] LABS: Mucus Urine Present (None Prsent)
[2021-03-01] MEDS ORDERED: ONDANSETRON 4 MG OD TAB PO STA (13:39)
[2021-03-01 13:52] LABS: Pregnancy Test, Urine Negative (Negative)
--- NOTE | 2021-03-01 17:33 | Emergency Department Note ---
History of Present Illness General Chief complaint: Mental Health Evaluation Stated complaint: MENTAL HEALTH EVALUATION/MIXED MEDICINE TOGETHER Time Seen by Provider: 03/01/21 12:12 Source: patient, family (Significant other at the bedside) and RN notes reviewed Mode of arrival: ambulatory Limitations: no limitations History of Present Illness Provider complaint: Hearing voices, not feeling well, using drugs and off medications This patient is a 50-year-old female who presents to the emergency department with her significant other who states she has been off of her medications for her "paranoid schizophrenia and bipolar disorder" for the last several months. She was followed by Dr. Wright who is no longer available to his patients. Since that time the patient has been drinking alcohol and lately has transition to methamphetamine. This morning the patient tried a dose of LSD. She states that she "wishes to " but is not acutely suicidal. She does not have a plan for hurting herself. She has had a suicide in the past, approximately a year and half ago. Patient's boyfriend at the bedside states this is her typical pattern when she gets off of her medications used to abuse alcohol primarily. She states she has not been drinking for several weeks. Patient denies any recent illnesses, chest pain, shortness of breath, vomiting or diarrhea. She states she has not been eating or drinking fluids well. She has not been sleeping well either. The patient would like to come in for mental health treatment and to "do the right thing" and stop using drugs. Home Medications Medication Instructions Recorded Confirmed Type cholecalciferol (vitamin D3) 125 5,000 units PO DAILY #30 cap 03/21/19 03/01/21 Rx mcg (5,000 unit) capsule aspirin 81 mg PO DAILY 06/25/19 01/22/21 History levothyroxine 25 mcg tablet 25 mcg PO DAILY #90 tab 06/27/19 01/22/21 Rx atorvastatin 80 mg tablet 80 mg PO QPM #90 tab 08/26/20 03/01/21 Rx clopidogrel 75 mg tablet 75 mg PO QAM #90 tab 08/26/20 03/01/21 Rx pantoprazole 40 mg tablet,delayed 40 mg PO QAM #90 tab 08/26/20 03/01/21 Rx release metoprolol succinate 25 mg 25 mg PO DAILY #90 tab 09/09/20 03/01/21 Rx tablet,extended release 24 hr gabapentin 100 mg capsule 200 mg PO HS #180 cap 01/08/21 03/01/21 Rx hydroxyzine pamoate 50 mg capsule 50 mg PO TID #30 cap 02/11/21 03/01/21 Rx venlafaxine 150 mg 150 mg PO DAILY #14 cap 02/11/21 03/01/21 Rx capsule,extended release 24 hr Allergies Allergy/AdvReac Type Severity Reaction Status Date / Time No Known Allergies Allergy Verified 01/22/21 18:49 Past Med/Surg History Medical History (Updated 03/01/21 @ 17:46 by Ashlee Araujo MD) Anxiety and depression B12 deficiency Coronary artery disease, occlusive (03/31/14) Folate deficiency GERD (gastroesophageal reflux disease) History of stroke Hyperlipidemia LDL goal <70 Hypertension Hypothyroidism (acquired) Medical non-compliance Schizoaffective disorder Schizoaffective disorder, depressive type STEMI (ST elevation myocardial infarction) STEMI (ST elevation myocardial infarction) TIA (transient ischemic attack) Surgical History H/O heart artery stent Family History Mother Diabetes Father , age 70 of pancreatic cancer. 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 Feels Safe at Home: Yes Assistive Devices: None Review of Systems See HPI for pertinent positives & negatives. and A total of 10 systems reviewed and were otherwise negative Physical Exam Vital Signs Vital Signs - 24 hr 03/01/21 11:58 03/01/21 17:13 Temperature 36.6 C Temperature Source Temporal Artery Scan Pulse Rate 115 H Pulse Rate [Finger] 90 Pulse Rhythm Regular Respiratory Rate 18 17 Respiratory Effort / Characteristics Non-Labored Spontaneous Respiratory Depth Normal Respiratory Pattern Regular Blood Pressure 147/97 H Blood Pressure [Left Arm] 118/81 Blood Pressure Mean 113 Blood Pressure Mean [Left Arm] 93 Pulse Oximetry 98 98 Oxygen Delivery Method Room Air Room Air Sepsis Recent Fever Within 48 Hours No Sepsis New/Unexplained Change in Mental Status No Sepsis Action Taken by Nursing No Action Required Vital signs reviewed. General: Disheveled 50-year-old female, in no significant distress HEENT: No scleral icterus, PERRLA, neck supple. Excoriated appearing rash to the lips from "picking." No cellulitic change. Cardiovascular: Regular rate and rhythm, no extra sounds. Pulmonary: Clear to auscultation bilaterally, normal work of breathing. Abdomen: Soft, nontender, nondistended, positive bowel sounds. Musculoskeletal: Atraumatic, no peripheral edema. Neurologic: Patient awake alert and oriented x 3 Skin: Warm, dry, no rash Course Administered Medications Discontinued Medications Ondansetron HCl (Ondansetron 4 Mg Od Tab) 4 mg PO NOW STA Stop: 03/01/21 13:40 Last Admin: 03/01/21 14:03 Dose: 4 mg Documented by: [id number] Medical Decision Making Differential Diagnosis Mood disorder, infection, hypoglycemia, electrolyte abnormalities, cardiac sources, intracerebral event, toxicologic, trauma, neurologic, as well as other pathologies. Medical Records Attestation: I reviewed the patient's medical records. Home Medications Current Medication List: was personally reviewed by me Laboratory Data Attestation: I reviewed the patient's lab results. Result diagrams: 03/01/21 12:29 03/01/21 12:29 Lab Results 03/01/21 03/01/21 03/01/21 Range/Units 12:29 12:29 12:29 WBC 7.12 (4.8-10.8) K/uL RBC 5.56 H (4.2-5.4) M/uL Hgb 16.4 H (12.0-16.0) g/dL Hct 46.7 (37-47) % MCV 84.0 (80-100) fL MCH 29.5 (25-34) pg MCHC 35.1 (32-36) g/dL RDW Std Deviation 46.6 H (36.4-46.3) fL RDW Coeff of Brooke 15.1 H (11.5-14.5) % Plt Count 339 (130-400) K/uL MPV 11.9 H (7.4-10.4) fL Immature Gran % (Auto) 0.1 % Neut % (Auto) 65.4 % Lymph % (Auto) 24.7 % [place] % (Auto) 8.8 % Eos % (Auto) 0.4 % Baso % (Auto) 0.6 % Neut # (Auto) 4.65 (1.4-6.5) K/uL Lymph # (Auto) 1.76 (1.2-3.4) K/uL [place] # (Auto) 0.63 H (0.11-0.59) K/uL Eos # (Auto) 0.03 (0-0.5) K/uL Baso # (Auto) 0.04 (0-0.2) K/uL Immature Gran # (Auto) 0.01 (0.00-0.02) K/uL Sodium 140 (136-145) mmol/L Potassium 3.6 (3.5-5.1) mmol/L Chloride 106 (98-107) mmol/L Carbon Dioxide 26 (21-32) mmol/L Anion Gap 8.0 (3-11) BUN 8 (7-18) mg/dl Creatinine 0.70 (0.6-1.2) mg/dl Est Cr Clr Drug Dosing 111.9 ml/min Est GFR ( Amer) 117.1 ml/min Est GFR (Non-Af Amer) 101.0 ml/min BUN/Creatinine Ratio 10.9 (10-20) Glucose 107 H (70-99) mg/dl Calcium 9.3 (8.5-10.1) mg/dl Total Bilirubin 0.8 (0.2-1) mg/dl AST 26 (15-37) U/L ALT 32 (12-78) U/L Alkaline Phosphatase 120 H (45-117) U/L Total Protein 7.4 (6.4-8.2) gm/dl Albumin 3.6 (3.4-5.0) gm/dl Globulin 3.8 (2.5-4.0) gm/dl Albumin/Globulin Ratio 0.9 (0.9-2) TSH 3.840 (0.300-4.500) uIu/ml Urine Color Urine Appearance (Clear) Urine pH (4.5-7.5) Ur Specific [place] (1.000-1.030) Urine Protein (Negative) Urine Glucose (UA) (Negative) Urine Ketones (Negative) Urine Blood (Negative) Urine Nitrite (Negative) Urine Bilirubin (Negative) Urine Urobilinogen (Negative) Ur Leukocyte Esterase (Negative) Urine WBC (Auto) (0-5) /hpf Urine RBC (Auto) (0-4) /hpf U Hyaline Cast (Auto) (0-5) /lpf U Epithel Cells (Auto) (0-5) /lpf Urine Bacteria (Auto) (Negative) Urine Mucus (None Prsent) Urine Test (Negative) Salicylates 3.3 (2.8-20) mg/dl Urine Opiates Screen (Neg) Ur Methadone, Qual (Neg) Acetaminophen < 2 L (10-30) ug/ml Urine Barbiturates (Neg) Ur Phencyclidine (PCP) (Neg) U Amphetamin/Meth Scrn (Neg) MDMA (Ecstasy) Screen (Neg) U Benzodiazepines Scrn (Neg) Ur Cocaine Metabolite (Neg) U Marijuana (THC) Screen (Neg) Ethyl Alcohol mg/dL (0-3) mg/dl COVID-19 Eval Order SARS-CoV-2, RNA, NAAT (NEGATIVE) 03/01/21 03/01/21 03/01/21 Range/Units 12:29 12:49 12:49 WBC (4.8-10.8) K/uL RBC (4.2-5.4) M/uL Hgb (12.0-16.0) g/dL Hct (37-47) % MCV (80-100) fL MCH (25-34) pg MCHC (32-36) g/dL RDW Std Deviation (36.4-46.3) fL RDW Coeff of Brooke (11.5-14.5) % Plt Count (130-400) K/uL MPV (7.4-10.4) fL Immature Gran % (Auto) % Neut % (Auto) % Lymph % (Auto) % [place] % (Auto) % Eos % (Auto) % Baso % (Auto) % Neut # (Auto) (1.4-6.5) K/uL Lymph # (Auto) (1.2-3.4) K/uL [place] # (Auto) (0.11-0.59) K/uL Eos # (Auto) (0-0.5) K/uL Baso # (Auto) (0-0.2) K/uL Immature Gran # (Auto) (0.00-0.02) K/uL Sodium (136-145) mmol/L Potassium (3.5-5.1) mmol/L Chloride (98-107) mmol/L Carbon Dioxide (21-32) mmol/L Anion Gap (3-11) BUN (7-18) mg/dl Creatinine (0.6-1.2) mg/dl Est Cr Clr Drug Dosing ml/min Est GFR ( Amer) ml/min Est GFR (Non-Af Amer) ml/min BUN/Creatinine Ratio (10-20) Glucose (70-99) mg/dl Calcium (8.5-10.1) mg/dl Total Bilirubin (0.2-1) mg/dl AST (15-37) U/L ALT (12-78) U/L Alkaline Phosphatase (45-117) U/L Total Protein (6.4-8.2) gm/dl Albumin (3.4-5.0) gm/dl Globulin (2.5-4.0) gm/dl Albumin/Globulin Ratio (0.9-2) TSH (0.300-4.500) uIu/ml Urine Color Dark Yellow Urine Appearance Turbid A (Clear) Urine pH 5.5 (4.5-7.5) Ur Specific [place] 1.023 (1.000-1.030) Urine Protein Trace H (Negative) Urine Glucose (UA) Negative (Negative) Urine Ketones 1+ H (Negative) Urine Blood Negative (Negative) Urine Nitrite Negative (Negative) Urine Bilirubin 1+ H (Negative) Urine Urobilinogen Negative (Negative) Ur Leukocyte Esterase 1+ H (Negative) Urine WBC (Auto) 5-10 H (0-5) /hpf Urine RBC (Auto) 0-4 (0-4) /hpf U Hyaline Cast (Auto) 5-10 H (0-5) /lpf U Epithel Cells (Auto) >30 H (0-5) /lpf Urine Bacteria (Auto) Negative (Negative) Urine Mucus Present A (None Prsent) Urine Test (Negative) Salicylates (2.8-20) mg/dl Urine Opiates Screen Neg (Neg) Ur Methadone, Qual Neg (Neg) Acetaminophen (10-30) ug/ml Urine Barbiturates Neg (Neg) Ur Phencyclidine (PCP) Neg (Neg) U Amphetamin/Meth Scrn Pos H (Neg) MDMA (Ecstasy) Screen Pos H (Neg) U Benzodiazepines Scrn Neg (Neg) Ur Cocaine Metabolite Neg (Neg) U Marijuana (THC) Screen Neg (Neg) Ethyl Alcohol mg/dL < 3.0 (0-3) mg/dl COVID-19 Eval Order SARS-CoV-2, RNA, NAAT (NEGATIVE) 03/01/21 03/01/21 03/01/21 Range/Units 12:49 13:33 13:33 WBC (4.8-10.8) K/uL RBC (4.2-5.4) M/uL Hgb (12.0-16.0) g/dL Hct (37-47) % MCV (80-100) fL MCH (25-34) pg MCHC (32-36) g/dL RDW Std Deviation (36.4-46.3) fL RDW Coeff of Brooke (11.5-14.5) % Plt Count (130-400) K/uL MPV (7.4-10.4) fL Immature Gran % (Auto) % Neut % (Auto) % Lymph % (Auto) % [place] % (Auto) % Eos % (Auto) % Baso % (Auto) % Neut # (Auto) (1.4-6.5) K/uL Lymph # (Auto) (1.2-3.4) K/uL [place] # (Auto) (0.11-0.59) K/uL Eos # (Auto) (0-0.5) K/uL Baso # (Auto) (0-0.2) K/uL Immature Gran # (Auto) (0.00-0.02) K/uL Sodium (136-145) mmol/L Potassium (3.5-5.1) mmol/L Chloride (98-107) mmol/L Carbon Dioxide (21-32) mmol/L Anion Gap (3-11) BUN (7-18) mg/dl Creatinine (0.6-1.2) mg/dl Est Cr Clr Drug Dosing ml/min Est GFR ( Amer) ml/min Est GFR (Non-Af Amer) ml/min BUN/Creatinine Ratio (10-20) Glucose (70-99) mg/dl Calcium (8.5-10.1) mg/dl Total Bilirubin (0.2-1) mg/dl AST (15-37) U/L ALT (12-78) U/L Alkaline Phosphatase (45-117) U/L Total Protein (6.4-8.2) gm/dl Albumin (3.4-5.0) gm/dl Globulin (2.5-4.0) gm/dl Albumin/Globulin Ratio (0.9-2) TSH (0.300-4.500) uIu/ml Urine Color Urine Appearance (Clear) Urine pH (4.5-7.5) Ur Specific [place] (1.000-1.030) Urine Protein (Negative) Urine Glucose (UA) (Negative) Urine Ketones (Negative) Urine Blood (Negative) Urine Nitrite (Negative) Urine Bilirubin (Negative) Urine Urobilinogen (Negative) Ur Leukocyte Esterase (Negative) Urine WBC (Auto) (0-5) /hpf Urine RBC (Auto) (0-4) /hpf U Hyaline Cast (Auto) (0-5) /lpf U Epithel Cells (Auto) (0-5) /lpf Urine Bacteria (Auto) (Negative) Urine Mucus (None Prsent) Urine Test Negative (Negative) Salicylates (2.8-20) mg/dl Urine Opiates Screen (Neg) Ur Methadone, Qual (Neg) Acetaminophen (10-30) ug/ml Urine Barbiturates (Neg) Ur Phencyclidine (PCP) (Neg) U Amphetamin/Meth Scrn (Neg) MDMA (Ecstasy) Screen (Neg) U Benzodiazepines Scrn (Neg) Ur Cocaine Metabolite (Neg) U Marijuana (THC) Screen (Neg) Ethyl Alcohol mg/dL (0-3) mg/dl COVID-19 Eval [facility] SARS-[facility]-2, RNA, NAAT NEGATIVE (NEGATIVE) ECG Data Attestation: I personally reviewed and interpreted this ECG as follows: Indication: + tachycardia Rate (beats per minute): 101 Rhythm: + sinus tachycardia ECG Intervals/blocks: + Normal QRS and + Prolonged QT ECG Gary: + Normal ECG ST segments: + Nonspecific ST abnormalities ECG Findings: + PVCs Blood Pressure Blood Pressure Findings: Normal blood pressure Blood Pressure Disposition: did not require urgent referral MDM Narrative This patient was evaluated and appeared to be in no significant distress. Patient was medically cleared and referred to the mental health bottle [facility] for a psychiatric assessment. Patient was referred to [facility] for consultation and was accepted for inpatient management on a voluntary basis. Impression & Plan Auditory hallucinations, Medical non-compliance, Bipolar disorder, Schiz ophrenia Discharge Plan Visit Data Chief Complaint: Mental Health Evaluation Stated Complaint: MENTAL HEALTH EVALUATION/MIXED MEDICINE TOGETHER ED Provider: Ashlee Araujo Discharge Problem: Auditory hallucinations, Medical non-compliance, Bipolar disorder, Schizophrenia Patient Disposition: Admitted As Inpatient Discharge Instructions Interventions: ED Discharge Assessment Last Done: 03/01/21 20:01 Discharge Problem: Bipolar disorder Qualifiers: Active/Remission status: currently active Current bipolar episode type: manic Current episode severity: unspecified Qualified Code(s): F31.10 - Bipolar disorder, current episode manic without psychotic features, unspecified Schizophrenia Qualifiers: Schizophrenia type: unspecified Qualified Code(s): F20.9 - Schizophrenia, unspecified
[2021-03-01] MEDS ORDERED: SODIUM CHLORIDE 0.65% NA SOLN 45 ML (OCEAN) PRN (18:20)
[2021-03-01] MEDS ORDERED: LORazepam 1 MG TAB PO PRN (18:20)
[2021-03-01] MEDS ORDERED: BISMUTH SUBSALICYLATE LIQD 236 ML PO PRN (18:20)
[2021-03-01] MEDS ORDERED: MAGNESIUM HYDROXIDE SUSP 30 ML UDC PO PRN (18:20)
[2021-03-01] MEDS: hydrOXYzine HCl 25 MG TAB PO PRN (21:39)
[2021-03-01] MEDS ORDERED: NICOTINE POLACRILEX 2 MG GUM MT PRN (21:51)
[2021-03-01] MEDS: risperiDONE 1 MG TABLET PO PRN (21:56)
[2021-03-01] MEDS: NICOTINE 21 MG/24 HR TDSY TD SCH (22:01)
--- NOTE | 2021-03-01 23:50 | Electrocardiogram Report ---
Test Reason : Blood Pressure : / mmHG Vent. Rate : 101 BPM Atrial Rate : 101 BPM P-R Int : 138 ms QRS Dur : 092 ms QT Int : 378 ms P-R-T Axes : 049 020 032 degrees QTc Int : 490 ms Sinus tachycardia with occasional Premature ventricular complexes Nonspecific ST abnormality Abnormal ECG When compared with ECG of 29-JUN-2019 22:44, Premature ventricular complexes are now Present Confirmed by Sander Alfred ([id number]) on 03/01/2021 11:50:35 PM Referred By: REFERRED SELF Confirmed By:Sander Alfred
[2021-03-02] MEDS: NICOTINE 21 MG/24 HR TDSY TD SCH (09:28)
[2021-03-02] MEDS: risperiDONE 1 MG TABLET PO PRN (09:51)
[2021-03-02] MEDS ORDERED: BENZTROPINE MESYLATE 0.5 MG TAB PO PRN (09:52)
--- NOTE | 2021-03-02 10:15 | History & Physical ---
Date of Service March 02, 2021 Impression / Recommendations Impression 50 yo female with schizoaffective disorder, chronic paranoia/aud garcia at baseline now worsening due to depression and increase in meth use, ongoing ETOH misuse with hx last stay of up to 30 beers a day. Currently reports passive wish and inability to care for self. (1) Schizoaffective disorder: The patient was admitted to the [facility] ([facility]) on q15 min checks (behavioral with suicide precautions) for safety. The patient will participate in group, recreational, and milieu therapies and will be offered additional individual and family sessions as clinically appropriate. Risks/benefits/alternatives were reviewed re: antipsychotics for mood and/or psychosis. Discussion included but was not limited to metabolic side effects, risks of TD and suicidal thoughts. There were no abnormal motor movements at baseline. Fasting glucose and lipid panel ordered for baseline monitoring. She agreed to continue Risperdal prn and add BID dosing for now while considers Invega trial as monthly KIBRY. Schizoaffective disorder type: depressive Qualified Code(s): F25.1 - Schizoaffective disorder, depressive type (2) Polysubstance (excluding opioids) dependence: AWSS protocol with Ativan prn as risk of withdrawal, will not neurontin load as on some standing/restarting and current use is sporadic and less likely to cause ETOH withdrawal. The patient's AUDIT score suggests problematic drinking ([place] WHO) and meth use is particularly problematic given her hx of aud garcia. Brief intervention was offered and accepted. Intervention was greater than 5 min in length and included assessing readiness to quit, advice on how to reduce or abstain from alcohol and other substances, and to set a specific goal for this hospitalization. sanitation worker will also assist in anticipating barriers to sobriety and in problem-solving for solutions to those problems while arranging for referral to appropriate treatment. The patient is in contemplation stage with regards to transtheoretical model of change as wants help to get back on psych meds but is ambivalent around rehab. The patient is advised to abstain from ETOH and meth, and other substances due to depressant effects and risk of interaction with prescription medications and psychosis. The patient will be provided with recovery materials to continue to educate self on how to cope with their condition without drinking. Inventory Assets Strengths: housing, relationship Needs: outpatient providers Risk Factors Assessment Male: No : Yes Do You Have Access To A Gun?: No (will confirm) Mental Health Diagnoses: No Substance Use Disorders: Yes Previous Attempt: Yes Previous Psychiatric Hospitalization: Yes Hopelessness: Yes Smoker: Yes Protective Factors Assessment : No Responsible for Young Children: Yes Employed: No Supportive Family: Yes Good Rapport with Provider: No Psychiatric History Identifying Data THADDEUS TIRADO is a 50-year-old F who currently lives locally with her boyfriend, has a history of schizoaffective disorder and polysubstance abuse, and was admitted on 03/01/21 18:20 on a 201 voluntary commitment for passive SI and paranoia. Chief Complaint "These voices won't stop, they tell me something bad is happening to Sukumar and my son". History of Present Illness Matilda has a previous admission to our unit in 2019 for similar presentation though at that time she had taken and OD of trazodone and Vistaril. She states that she was maintaining her depression "pretty OK" until she was no longer able to see Dr. Nuñez and relapsed on ETOH and meth around the same time. She relates this led to her missing meds and appointments and although she has been able to cut back again on her alcohol intake to 3-40oz beers a day she is using meth daily, sometimes more than once. Due to the combination of her drug use and depression she is not attending to self-care, "I just want to ", like "if I don't wake up it would be a relief". Her sleep and appetite are disrupted. She cannot focus or enjoy things and doesn't even like the way meth makes her feel. She denies recent withdrawal symptoms but is here to "get my head right." She is not attending group on the unit this am as distressed that called her boyfriend Sukumar to check on him and he didn't black pickler and the auditory garcia tell her that they are getting him. She denies visual garcia or recent elizabeth. Past Psychiatric History Previous Psych History: [facility] for several years, missed intake at [facility]. Current Psychiatric Diagnosis: Schizoaffective disorder, Bipolar type Outpatient Services: none currently Previous Psych Admissions: 2019 [facility] Do You Have Access To A Gun?: No (will confirm) History of Previous Suicide Attempt: Yes Describe Attempts in the Past: 2019 OD on Vistaril and trazodone Past Medication Trials: may not be exhaustive: haldol, neurontin, effexor Xr, buspar TID, Geodon 80 BID (doesn't work), Risperdal 1 mg BID (helped last night), Cymbalta 30 mg, Cogentin for EPS, lorazepam BID, trazodone 150 mg hs, Vistaril 50 TID. Past Head Trauma/Neuro History History of Concussion/Seizure: No Allergies Allergy/AdvReac Type Severity Reaction Status Date / Time No Known Allergies Allergy Verified 01/22/21 18:49 Home Medications Medication Instructions Recorded Confirmed Type cholecalciferol (vitamin D3) 125 5,000 units PO DAILY #30 cap 03/21/19 03/01/21 Rx mcg (5,000 unit) capsule aspirin 81 mg PO DAILY 06/25/19 03/01/21 History levothyroxine 25 mcg tablet 25 mcg PO DAILY #90 tab 06/27/19 03/01/21 Rx atorvastatin 80 mg tablet 80 mg PO QPM #90 tab 08/26/20 03/01/21 Rx clopidogrel 75 mg tablet 75 mg PO QAM #90 tab 08/26/20 03/01/21 Rx pantoprazole 40 mg tablet,delayed 40 mg PO QAM #90 tab 08/26/20 03/01/21 Rx release metoprolol succinate 25 mg 25 mg PO DAILY #90 tab 09/09/20 03/01/21 Rx tablet,extended release 24 hr gabapentin 100 mg capsule 200 mg PO HS #180 cap 01/08/21 03/01/21 Rx hydroxyzine pamoate 50 mg capsule 50 mg PO TID #30 cap 02/11/21 03/01/21 Rx venlafaxine 150 mg 150 mg PO DAILY #14 cap 02/11/21 03/01/21 Rx capsule,extended release 24 hr Family History Family History of: Doesn't Know Alcohol History Hx of Alcohol Use Over the Past 12 Months: Yes (3-4 cans of beer per day) AUDIT Total Score: 29 Smoking Use tobacco type: cigarettes Smoking Status: Current every day smoker (1 PPD) Substance History Hx of Prescription Med Misuse Over the Past 12 Months: No Hx of Over the Counter Med Misuse Over the Past 12 Months: No Hx of Inhalent Misuse Over the Past 12 Months: No Hx of Organic Substance Use Over the Past 12 Months: Yes Hx of Illegal Substances/Street Drug Use Over Past 12 Months: Yes (Meth "A couple hits/day. LSD for first time day of admission) Problems as a Result of Past Substance Use: Life out of Control and Other Problems as a Result of Past Substance Use Comments: "Feel like a bad person." specifically denies opiates or huffing (hx of such), or benzos. Personal History Living Arrangements: Home (with boyfriend and 14 yo son) Highest Grade Completed: Did Not Graduate High School (11 th grade) Employment Status: Disabled Marital Status: Single Number Of Children: 1 son Beliefs That Will Affect Care: None Current Legal Problems: No Psychological Trauma History Comment: currently denies Patient History Medical History (Updated 03/02/21 @ 10:12 by Brittaney Soriano MD) Anxiety and depression B12 deficiency Coronary artery disease, occlusive (03/31/14) Folate deficiency GERD (gastroesophageal reflux disease) History of stroke Hyperlipidemia LDL goal <70 Hypertension Hypothyroidism (acquired) Medical non-compliance Schizoaffective disorder Schizoaffective disorder, depressive type STEMI (ST elevation myocardial infarction) STEMI (ST elevation myocardial infarction) TIA (transient ischemic attack) Surgical History H/O heart artery stent Family History Mother Diabetes Father , age 70 of pancreatic cancer. 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 Feels Safe at Home: Yes Assistive Devices: None Review of Systems Review of Systems: All systems reviewed & are unremarkable except as noted in HPI & below Physical Exam Psychiatric: Orientation: alert Apperance: + disheveled with lip sores consistent with meth use Eye Contact: + poor eye contact Motor Behavior: no abnormal motor movements Speech: normal rate/rhythm/volume of speech Affect: + depressed affect Mood: + depressed mood and + anxious mood Thought Process: + circumstantial thought process and + concrete thought process Thought Content: + paranoid, + delusions and + persecution Suicidal Thoughts: denies suicidal thoughts Homicidal Thoughts: denies homicidal thoughts Hallucinations: + auditory hallucinations; no visual hallucinations Cognition: language grossly intact; + attention not intact Estimated Intelligence: consistent with education level Insight: + poor insight Judgement: + poor judgement Vital Signs (Past 24 Hours): Last Vital Signs Temp 36.6 C 03/02/21 06:33 Pulse 97 H 03/02/21 06:34 Resp 16 03/02/21 06:33 BP 107/75 03/02/21 06:34 Pulse Ox 98 03/01/21 17:13 Exam Statement: A physical exam was performed in the ED by Dr. Araujo for the purposes of medical clearance. I accept that physical as correct and adequate for the purposes of the inpatient physical exam. Results & Data ([facility]) Laboratory Results Laboratory Results - last 24 hr 03/01/21 03/01/21 03/01/21 12:29 12:29 12:29 WBC 7.12 RBC 5.56 H Hgb 16.4 H Hct 46.7 MCV 84.0 MCH 29.5 MCHC 35.1 RDW Std Deviation 46.6 H RDW Coeff of Brooke 15.1 H Plt Count 339 MPV 11.9 H Immature Gran % (Auto) 0.1 Neut % (Auto) 65.4 Lymph % (Auto) 24.7 [place] % (Auto) 8.8 Eos % (Auto) 0.4 Baso % (Auto) 0.6 Neut # (Auto) 4.65 Lymph # (Auto) 1.76 [place] # (Auto) 0.63 H Eos # (Auto) 0.03 Baso # (Auto) 0.04 Immature Gran # (Auto) 0.01 Sodium 140 Potassium 3.6 Chloride 106 Carbon Dioxide 26 Anion Gap 8.0 BUN 8 Creatinine 0.70 Est Cr Clr Drug Dosing 111.9 Est GFR ( Amer) 117.1 Est GFR (Non-Af Amer) 101.0 BUN/Creatinine Ratio 10.9 Glucose 107 H Calcium 9.3 Total Bilirubin 0.8 AST 26 ALT 32 Alkaline Phosphatase 120 H Total Protein 7.4 Albumin 3.6 Globulin 3.8 Albumin/Globulin Ratio 0.9 TSH 3.840 Urine Color Urine Appearance Urine pH Ur Specific [place] Urine Protein Urine Glucose (UA) Urine Ketones Urine Blood Urine Nitrite Urine Bilirubin Urine Urobilinogen Ur Leukocyte Esterase Urine WBC (Auto) Urine RBC (Auto) U Hyaline Cast (Auto) U Epithel Cells (Auto) Urine Bacteria (Auto) Urine Mucus Urine Test Salicylates 3.3 Urine Opiates Screen Ur Methadone, Qual Acetaminophen < 2 L Urine Barbiturates Ur Phencyclidine (PCP) U Amphetamines Confirm U Amphetamin/Meth Scrn U Methamphetamin Confrm Urine MDEA MDMA (Ecstasy) Screen MDMA Urine MDMA U Benzodiazepines Scrn Ur Cocaine Metabolite U Marijuana (THC) Screen Drug Screen Comment Ethyl Alcohol mg/dL COVID-19 Eval Order SARS-CoV-2, RNA, NAAT 03/01/21 03/01/21 03/01/21 12:29 12:49 12:49 WBC RBC Hgb Hct MCV MCH MCHC RDW Std Deviation RDW Coeff of Brooke Plt Count MPV Immature Gran % (Auto) Neut % (Auto) Lymph % (Auto) [place] % (Auto) Eos % (Auto) Baso % (Auto) Neut # (Auto) Lymph # (Auto) [place] # (Auto) Eos # (Auto) Baso # (Auto) Immature Gran # (Auto) Sodium Potassium Chloride Carbon Dioxide Anion Gap BUN Creatinine Est Cr Clr Drug Dosing Est GFR ( Amer) Est GFR (Non-Af Amer) BUN/Creatinine Ratio Glucose Calcium Total Bilirubin AST ALT Alkaline Phosphatase Total Protein Albumin Globulin Albumin/Globulin Ratio TSH Urine Color Dark Yellow Urine Appearance Turbid A Urine pH 5.5 Ur Specific [place] 1.023 Urine Protein Trace H Urine Glucose (UA) Negative Urine Ketones 1+ H Urine Blood Negative Urine Nitrite Negative Urine Bilirubin 1+ H Urine Urobilinogen Negative Ur Leukocyte Esterase 1+ H Urine WBC (Auto) 5-10 H Urine RBC (Auto) 0-4 U Hyaline Cast (Auto) 5-10 H U Epithel Cells (Auto) >30 H Urine Bacteria (Auto) Negative Urine Mucus Present A Urine Test Salicylates Urine Opiates Screen Neg Ur Methadone, Qual Neg Acetaminophen Urine Barbiturates Neg Ur Phencyclidine (PCP) Neg U Amphetamines Confirm U Amphetamin/Meth Scrn Pos H U Methamphetamin Confrm Urine MDEA MDMA (Ecstasy) Screen Pos H MDMA Urine MDMA U Benzodiazepines Scrn Neg Ur Cocaine Metabolite Neg U Marijuana (THC) Screen Neg Drug Screen Comment Ethyl Alcohol mg/dL < 3.0 COVID-19 Eval Order SARS-CoV-2, RNA, NAAT 03/01/21 03/01/21 03/01/21 12:49 12:49 13:33 WBC RBC Hgb Hct MCV MCH MCHC RDW Std Deviation RDW Coeff of Brooke Plt Count MPV Immature Gran % (Auto) Neut % (Auto) Lymph % (Auto) [place] % (Auto) Eos % (Auto) Baso % (Auto) Neut # (Auto) Lymph # (Auto) [place] # (Auto) Eos # (Auto) Baso # (Auto) Immature Gran # (Auto) Sodium Potassium Chloride Carbon Dioxide Anion Gap BUN Creatinine Est Cr Clr Drug Dosing Est GFR ( Amer) Est GFR (Non-Af Amer) BUN/Creatinine Ratio Glucose Calcium Total Bilirubin AST ALT Alkaline Phosphatase Total Protein Albumin Globulin Albumin/Globulin Ratio TSH Urine Color Urine Appearance Urine pH Ur Specific [place] Urine Protein Urine Glucose (UA) Urine Ketones Urine Blood Urine Nitrite Urine Bilirubin Urine Urobilinogen Ur Leukocyte Esterase Urine WBC (Auto) Urine RBC (Auto) U Hyaline Cast (Auto) U Epithel Cells (Auto) Urine Bacteria (Auto) Urine Mucus Urine Test Negative Salicylates Urine Opiates Screen Ur Methadone, Qual Acetaminophen Urine Barbiturates Ur Phencyclidine (PCP) U Amphetamines Confirm Pending U Amphetamin/Meth Scrn U Methamphetamin Confrm Pending Urine MDEA Pending MDMA (Ecstasy) Screen MDMA Pending Urine MDMA Pending U Benzodiazepines Scrn Ur Cocaine Metabolite U Marijuana (THC) Screen Drug Screen Comment Pending Ethyl Alcohol mg/dL COVID-19 Eval [facility] SARS-[facility], RNA, NAAT 03/01/21 13:33 WBC RBC Hgb Hct MCV MCH MCHC RDW Std Deviation RDW Coeff of Brooke Plt Count MPV Immature Gran % (Auto) Neut % (Auto) Lymph % (Auto) [place] % (Auto) Eos % (Auto) Baso % (Auto) Neut # (Auto) Lymph # (Auto) [place] # (Auto) Eos # (Auto) Baso # (Auto) Immature Gran # (Auto) Sodium Potassium Chloride Carbon Dioxide Anion Gap BUN Creatinine Est Cr Clr Drug Dosing Est GFR ( Amer) Est GFR (Non-Af Amer) BUN/Creatinine Ratio Glucose Calcium Total Bilirubin AST ALT Alkaline Phosphatase Total Protein Albumin Globulin Albumin/Globulin Ratio TSH Urine Color Urine Appearance Urine pH Ur Specific [place] Urine Protein Urine Glucose (UA) Urine Ketones Urine Blood Urine Nitrite Urine Bilirubin Urine Urobilinogen Ur Leukocyte Esterase Urine WBC (Auto) Urine RBC (Auto) U Hyaline Cast (Auto) U Epithel Cells (Auto) Urine Bacteria (Auto) Urine Mucus Urine Test Salicylates Urine Opiates Screen Ur Methadone, Qual Acetaminophen Urine Barbiturates Ur Phencyclidine (PCP) U Amphetamines Confirm U Amphetamin/Meth Scrn U Methamphetamin Confrm Urine MDEA MDMA (Ecstasy) Screen MDMA Urine MDMA U Benzodiazepines Scrn Ur Cocaine Metabolite U Marijuana (THC) Screen Drug Screen Comment Ethyl Alcohol mg/dL COVID-19 Eval Order SARS-CoV-2, RNA, NAAT NEGATIVE Current Inpatient Medications Current Inpatient Medications: Current Inpatient Medications Acetaminophen (Acetaminophen 325 Mg Tab) 650 mg PO Q4H PRN PRN Reason: Headache or Minor Fever Stop: 03/31/21 18:19 Al Hydrox/Mg Hydrox/Simethicone (Aluminum/Magnesium Susp 30 Ml Udc) 30 ml PO Q4H PRN PRN Reason: GI Upset Stop: 03/31/21 18:19 Atorvastatin Calcium (Atorvastatin 40 Mg Tab) 80 mg PO QPM NILSON Stop: 04/01/21 20:59 Benztropine Mesylate (Benztropine Mesylate 0.5 Mg Tab) 0.5 mg PO Q6 PRN PRN Reason: Muscle Spasm Stop: 04/01/21 09:51 Bismuth Subsalicylate (Bismuth Subsalicylate Liqd 236 Ml) 15 ml PO PRN PRN PRN Reason: Loose Stool Stop: 03/31/21 18:19 Folic Acid (Folic Acid 1 Mg Tab) 1 mg PO QAM NILSON Stop: 04/01/21 09:59 Gabapentin (Gabapentin 100 Mg Cap) 200 mg PO HS NILSON Stop: 04/01/21 21:59 Hydroxyzine HCl (Hydroxyzine Hcl 25 Mg Tab) 50 mg PO HSZ PRN PRN Reason: Insomnia Stop: 03/31/21 18:19 Last Admin: 03/01/21 21:39 Dose: 50 mg Documented by: Hydroxyzine HCl (Hydroxyzine Hcl 25 Mg Tab) 25 mg PO Q4H PRN PRN Reason: Anxiety Stop: 03/31/21 18:19 Lorazepam (Lorazepam 1 Mg Tab) 1 - 3 mg PO UD PRN; Protocol PRN Reason: EtoH Withdrawal AWSS 6-10+ Stop: 03/31/21 18:19 Magnesium Hydroxide (Magnesium Hydroxide Susp 30 Ml Udc) 30 ml PO DAILY PRN PRN Reason: Constipation Stop: 03/31/21 18:19 Miscellaneous (Remove Nicoderm Patch) 1 ea N/A DAILY@0859 [facility] Stop: 04/01/21 08:58 Nicotine (Nicotine 21 Mg/24 Hr Tdsy) 21 mg TD QAM [facility] Stop: 03/31/21 21:59 Last Admin: 03/02/21 09:28 Dose: 21 mg Documented by: Nicotine Polacrilex (Nicotine Polacrilex 2 Mg Gum) 1 piece MT PRN PRN PRN Reason: cravings Stop: 03/31/21 21:50 Non-Formulary Medication (Cholecalciferol (Vitamin D3)) 5,000 units PO DAILY [facility] Stop: 04/01/21 09:59 Pantoprazole Sodium (Pantoprazole 40 Mg Tab) 40 mg PO QAM [facility] Stop: 04/01/21 09:59 Risperidone (Risperidone 1 Mg Tablet) 1 mg PO Q6 PRN PRN Reason: psychosis Stop: 03/31/21 18:28 Last Admin: 03/02/21 09:51 Dose: 1 mg Documented by: Risperidone (Risperidone 1 Mg Tablet) 1 mg PO BID [facility] Stop: 04/01/21 20:59 Sodium Chloride (Sodium Chloride 0.65% Na Soln 45 Ml ([place])) 1 - 2 sprays NA PRN PRN PRN Reason: Nasal Dryness/Congestion Stop: 03/31/21 18:19 Thiamine HCl (Thiamine Hcl 50 Mg Tablet) 50 mg PO QAM [facility] Stop: 04/01/21 09:59
[2021-03-02] MEDS: FOLIC ACID 1 MG TAB PO SCH (10:35)
[2021-03-02] MEDS: ASPIRIN 81 MG ECTAB PO SCH (10:35)
[2021-03-02] MEDS: CLOPIDOGREL BISULFATE 75 MG TAB PO SCH (10:35)
[2021-03-02] MEDS: CEROVITE ADV FORMULA TAB PO SCH (10:36)
[2021-03-02] MEDS: THIAMINE HCL 50 MG TABLET PO SCH (10:36)
[2021-03-02] MEDS: METOPROLOL SUCC 25MG EXT REL TAB PO SCH (10:36)
[2021-03-02] MEDS: PANTOprazole 40 MG TAB PO SCH (10:36)
[2021-03-02] MEDS: ALUMINUM/MAGNESIUM SUSP 30 ML UDC PO PRN (18:58)
[2021-03-02] MEDS: hydrOXYzine HCl 25 MG TAB PO PRN ×2 (18:58→23:30)
[2021-03-02] MEDS: ATORVASTATIN 40 MG TAB PO SCH (20:28)
[2021-03-02] MEDS: risperiDONE 1 MG TABLET PO SCH (20:28)
[2021-03-02] MEDS: GABAPENTIN 100 MG CAP PO SCH (20:28)
[2021-03-03] MEDS: THIAMINE HCL 50 MG TABLET PO SCH (08:35)
[2021-03-03] MEDS: LEVOTHYROXINE SODIUM 25 MCG TABLET PO SCH (08:35)
[2021-03-03] MEDS: CLOPIDOGREL BISULFATE 75 MG TAB PO SCH (08:35)
[2021-03-03] MEDS: ASPIRIN 81 MG ECTAB PO SCH (08:35)
[2021-03-03] MEDS: CHOLECALCIFEROL 1,000 UNITS 25 MCG TAB PO SCH (08:35)
[2021-03-03] MEDS: PANTOprazole 40 MG TAB PO SCH (08:36)
[2021-03-03] MEDS: risperiDONE 1 MG TABLET PO SCH ×2 (08:36→20:36)
[2021-03-03] MEDS: CEROVITE ADV FORMULA TAB PO SCH (08:36)
[2021-03-03] MEDS: METOPROLOL SUCC 25MG EXT REL TAB PO SCH (08:37)
[2021-03-03] MEDS: FOLIC ACID 1 MG TAB PO SCH (08:37)
[2021-03-03] MEDS: NICOTINE 21 MG/24 HR TDSY TD SCH (08:50)
[2021-03-03 09:12] LABS: Glucose Fasting 99 mg/dl (70-99)
[2021-03-03 09:19] LABS: Chol HDL Ratio 4; Cholesterol 123 mg/dl (0-200); HDL Cholesterol 34 mg/dl; LDL Cholesterol Calculated 52 mg/dl; Triglycerides 186 mg/dl (0-150); VLDL Cholesterol 37 mg/dl
--- NOTE | 2021-03-03 09:42 | Psychiatric Progress Note ---
Date of Service March 03, 2021 Impression / Recommendations Impression 50 yo female with schizoaffective disorder, chronic paranoia/aud garcia at baseline now worsening due to depression and increase in meth use, ongoing ETOH misuse with hx last stay of up to 30 beers a day. 03/03/21--minimal improvement, tolerating Risperdal restart. (1) Schizoaffective disorder: 03/03/21--continue Risperdal 1 mg BID with prn. As patient is having ongoing anxiety related to garcia and withdrawing from meth will offer short term use of benzodiazepine. Risks/benefits/alternatives reviewed and she is aware this medication is for short term use only while monitored in hospital and will not be prescribed at discharge. Patient agreed to Klonopin 0.5 mg BID. 03/02/21 The patient was admitted to the [facility] ([facility] mental health unit) on q15 min checks (behavioral with suicide precautions) for safety. The patient will participate in group, recreational, and milieu therapies and will be offered additional individual and family sessions as clinically appropriate. Risks/benefits/alternatives were reviewed re: antipsychotics for mood and/or psychosis. Discussion included but was not limited to metabolic side effects, risks of TD and suicidal thoughts. There were no abnormal motor movements at baseline. Fasting glucose and lipid panel ordered for baseline monitoring. She agreed to continue Risperdal prn and add BID dosing for now while considers Invega trial as monthly [facility]. (2) Polysubstance (excluding opioids) dependence: 03/03/21--only scored 1 last night on AWSS for subjective anxiety. 03/02/21 AWSS protocol with Ativan prn as risk of withdrawal, will not neurontin load as on some standing/restarting and current use is sporadic and less likely to cause ETOH withdrawal. The patient's AUDIT score suggests problematic drinking (Zone III WHO) and meth use is particularly problematic given her hx of aud garcia. Brief intervention was offered and accepted. Intervention was greater than 5 min in length and included assessing readiness to quit, advice on how to reduce or abstain from alcohol and other substances, and to set a specific goal for this hospitalization. cab worker will also assist in anticipating barriers to sobriety and in problem-solving for solutions to those problems while arranging for referral to appropriate treatment. The patient is in contemplation stage with regards to transtheoretical model of change as wants help to get back on psych meds but is ambivalent around rehab. The patient is advised to abstain from ETOH and meth, and other substances due to depressant effects and risk of interaction with prescription medications and psychosis. The patient will be provided with recovery materials to continue to educate self on how to cope with their condition without drinking. Inventory Assets Strengths: housing, relationship Needs: outpatient providers Risk Factors Assessment Male: No : Yes Do You Have Access To A Gun?: No (will confirm) Mental Health Diagnoses: No Substance Use Disorders: Yes Previous Attempt: Yes Previous Psychiatric Hospitalization: Yes Hopelessness: Yes Smoker: Yes Protective Factors Assessment : No Responsible for Young Children: Yes Employed: No Supportive Family: Yes Good Rapport with Provider: No Interval History Chief Complaint "I can't take the voices anymore". Review of Systems Sleep Information Total Hours of Sleep: 6.75 Meal Information Percent Meal Consumed - Breakfast: 100 Percent Meal Consumed - Lunch: 100 Percent Meal Consumed - Dinner: 100 Subjective Subjective Patient was seen & assessed and interval progress reviewed with nursing and social work. Tolerating Risperdal, states that hallucinations are essentially unchanged and continue to cause her alot of anxiety. States that she feels tight in her chest/tachy due to anxiety, the chest discomfort responded to Maalox liast night ("like I have to burp"). voice told her that her friend was killed this am and she had to call him. Continues to feel paranoid about safety of [place] and shows little insight to impact of meth on current presentation. Made aware of prn Risperdal. Eating well. Sleep improved. Physical Exam Psychiatric Orientation: alert Apperance: + disheveled Eye Contact: + poor eye contact Motor Behavior: no abnormal motor movements Speech: normal rate/rhythm/volume of speech Affect: + depressed affect Mood: + depressed mood and + anxious mood Thought Process: + circumstantial thought process and + concrete thought process Thought Content: + paranoid, + delusions and + persecution Suicidal Thoughts: denies suicidal thoughts Homicidal Thoughts: denies homicidal thoughts Hallucinations: + auditory hallucinations; no visual hallucinations Cognition: language grossly intact; + attention not intact Estimated Intelligence: consistent with education level Insight: + poor insight Judgement: + poor judgement Vital Signs (Past 24 Hours) Last Vital Signs Temp 36.4 C L 03/03/21 06:50 Pulse 80 03/03/21 06:51 Resp 16 03/03/21 06:50 BP 137/86 03/03/21 06:51 Pulse Ox 99 03/02/21 19:02 Results & Data ([facility]) Laboratory Results Laboratory Results - last 24 hr 03/03/21 07:30 Fasting Glucose 99 Triglycerides 186 H Cholesterol 123 LDL Cholesterol, Calc 52 VLDL Cholesterol, Calc 37 HDL Cholesterol 34 Cholesterol/HDL Ratio 4 Current Inpatient Medications Current Inpatient Medications: Current Inpatient Medications Acetaminophen (Acetaminophen 325 Mg Tab) 650 mg PO Q4H PRN PRN Reason: Headache or Minor Fever Stop: 03/31/21 18:19 Al Hydrox/Mg Hydrox/Simethicone (Aluminum/Magnesium Susp 30 Ml Udc) 30 ml PO Q4H PRN PRN Reason: GI Upset Stop: 03/31/21 18:19 Last Admin: 03/02/21 18:58 Dose: 30 ml Documented by: Aspirin (Aspirin 81 Mg Ectab) 81 mg PO DAILY [facility] Stop: 04/01/21 10:14 Last Admin: 03/03/21 08:35 Dose: 81 mg Documented by: Atorvastatin Calcium (Atorvastatin 40 Mg Tab) 80 mg PO QPM [facility] Stop: 04/01/21 20:59 Last Admin: 03/02/21 20:28 Dose: 80 mg Documented by: Benztropine Mesylate (Benztropine Mesylate 0.5 Mg Tab) 0.5 mg PO Q6 PRN PRN Reason: Muscle Spasm Stop: 04/01/21 09:51 Bismuth Subsalicylate (Bismuth Subsalicylate Liqd 236 Ml) 15 ml PO PRN PRN PRN Reason: Loose Stool Stop: 03/31/21 18:19 Clopidogrel Bisulfate (Clopidogrel Bisulfate 75 Mg Tab) 75 mg PO QAM [facility] Stop: 04/01/21 10:14 Last Admin: 03/03/21 08:35 Dose: 75 mg Documented by: Folic Acid (Folic Acid 1 Mg Tab) 1 mg PO QAM [facility] Stop: 04/01/21 09:59 Last Admin: 03/03/21 08:37 Dose: 1 mg Documented by: Gabapentin (Gabapentin 100 Mg Cap) 200 mg PO [facility] Stop: 04/01/21 21:59 Last Admin: 03/02/21 20:28 Dose: 200 mg Documented by: Hydroxyzine HCl (Hydroxyzine Hcl 25 Mg Tab) 50 mg PO HSZ PRN PRN Reason: Insomnia Stop: 03/31/21 18:19 Last Admin: 03/02/21 23:30 Dose: 50 mg Documented by: Hydroxyzine HCl (Hydroxyzine Hcl 25 Mg Tab) 25 mg PO Q4H PRN PRN Reason: Anxiety Stop: 03/31/21 18:19 Last Admin: 03/02/21 18:58 Dose: 25 mg Documented by: Levothyroxine Sodium (Levothyroxine Sodium 25 Mcg Tablet) 25 mcg PO DAILYBB [facility] Stop: 04/02/21 07:59 Last Admin: 03/03/21 08:35 Dose: 25 mcg Documented by: Lorazepam (Lorazepam 1 Mg Tab) 1 - 3 mg PO UD PRN; Protocol PRN Reason: EtoH Withdrawal AWSS 6-10+ Stop: 03/31/21 18:19 Magnesium Hydroxide (Magnesium Hydroxide Susp 30 Ml Udc) 30 ml PO DAILY PRN PRN Reason: Constipation Stop: 03/31/21 18:19 Metoprolol Succinate (Metoprolol Succ 25mg Ext Rel Tab) 25 mg PO DAILY [facility] Stop: 04/01/21 10:14 Last Admin: 03/03/21 08:37 Dose: 25 mg Documented by: Miscellaneous (Remove Nicoderm Patch) 1 ea N/A DAILY@0859 [facility] Stop: 04/01/21 08:58 Last Admin: 03/03/21 08:49 Dose: 1 ea Documented by: Multivitamins/Minerals (Cerovite Adv Formula Tab) 1 tab PO QAM [facility] Stop: 04/01/21 10:14 Last Admin: 03/03/21 08:36 Dose: 1 tab Documented by: Nicotine (Nicotine 21 Mg/24 Hr Tdsy) 21 mg TD QAM [facility] Stop: 03/31/21 21:59 Last Admin: 03/03/21 08:50 Dose: 21 mg Documented by: Nicotine Polacrilex (Nicotine Polacrilex 2 Mg Gum) 1 piece MT PRN PRN PRN Reason: cravings Stop: 03/31/21 21:50 Pantoprazole Sodium (Pantoprazole 40 Mg Tab) 40 mg PO QAM [facility] Stop: 04/01/21 10:14 Last Admin: 03/03/21 08:36 Dose: 40 mg Documented by: Risperidone (Risperidone 1 Mg Tablet) 1 mg PO Q6 PRN PRN Reason: psychosis Stop: 03/31/21 18:28 Last Admin: 03/02/21 09:51 Dose: 1 mg Documented by: Risperidone (Risperidone 1 Mg Tablet) 1 mg PO BID [facility] Stop: 04/01/21 20:59 Last Admin: 03/03/21 08:36 Dose: 1 mg Documented by: Sodium Chloride (Sodium Chloride 0.65% Na Soln 45 Ml ([place])) 1 - 2 sprays NA PRN PRN PRN Reason: Nasal Dryness/Congestion Stop: 03/31/21 18:19 Thiamine HCl (Thiamine Hcl 50 Mg Tablet) 50 mg PO QAM [facility] Stop: 04/01/21 10:14 Last Admin: 03/03/21 08:35 Dose: 50 mg Documented by: Vitamin D (Cholecalciferol 1,000 Units 25 Mcg Tab) 5,000 units PO DAILY [facility] Stop: 04/02/21 08:59 Last Admin: 03/03/21 08:35 Dose: 5,000 units Documented by: (1) Schizoaffective disorder Schizoaffective disorder type: depressive Qualified Code(s): F25.1 - Schizoaffective disorder, depressive type
[2021-03-03] MEDS: clonazePAM 0.5 MG TAB PO SCH ×2 (10:45→16:45)
[2021-03-03] MEDS: ATORVASTATIN 40 MG TAB PO SCH (20:35)
[2021-03-03] MEDS: GABAPENTIN 100 MG CAP PO SCH (20:35)
[2021-03-04] MEDS: LEVOTHYROXINE SODIUM 25 MCG TABLET PO SCH (09:05)
[2021-03-04] MEDS: NICOTINE 21 MG/24 HR TDSY TD SCH (09:45)
[2021-03-04] MEDS: ASPIRIN 81 MG ECTAB PO SCH (09:45)
[2021-03-04] MEDS: CHOLECALCIFEROL 1,000 UNITS 25 MCG TAB PO SCH (09:46)
[2021-03-04] MEDS: PANTOprazole 40 MG TAB PO SCH (09:47)
[2021-03-04] MEDS: METOPROLOL SUCC 25MG EXT REL TAB PO SCH (09:47)
[2021-03-04] MEDS: risperiDONE 1 MG TABLET PO SCH (09:47)
[2021-03-04] MEDS: CEROVITE ADV FORMULA TAB PO SCH (09:47)
[2021-03-04] MEDS: CLOPIDOGREL BISULFATE 75 MG TAB PO SCH (09:47)
[2021-03-04] MEDS: FOLIC ACID 1 MG TAB PO SCH (09:47)
[2021-03-04] MEDS: THIAMINE HCL 50 MG TABLET PO SCH (09:48)
[2021-03-04] MEDS: clonazePAM 0.5 MG TAB PO SCH ×2 (09:49→17:36)
[2021-03-04 11:21] LABS: Amphetamine Urine, Confirm 13000 ng/mL (<250); MDA negative; MDEA negative; MDMA (Ecstasy) Urine, Confirm negative; Methamphetamine, Ur Confirm >15000 ng/mL (<250)
--- NOTE | 2021-03-04 11:47 | Psychiatric Progress Note ---
Date of Service March 04, 2021 Impression / Recommendations Impression 50 yo female with schizoaffective disorder, chronic paranoia/aud garcia at baseline now worsening due to depression and increase in meth use, ongoing ETOH misuse with hx last stay of up to 30 beers a day. 03/04/21--some decrease in garcia, desires KIRBY, no sign of ETOH withdrawal. (1) Schizoaffective disorder: 03/04/21--Risks/benefits/alternatives reviewed re: conversion to Invega as trial given availability of monthly KIRBY. Invega sustenna is covered by her insurance per nursing. 03/03/21--continue Risperdal 1 mg BID with prn. As patient is having ongoing anxiety related to garcia and withdrawing from meth will offer short term use of benzodiazepine. Risks/benefits/alternatives reviewed and she is aware this medication is for short term use only while monitored in hospital and will not be prescribed at discharge. Patient agreed to Klonopin 0.5 mg BID. 03/02/21 The patient was admitted to the [facility] ([facility] mental health unit) on q15 min checks (behavioral with suicide precautions) for safety. The patient will participate in group, recreational, and milieu therapies and will be offered additional individual and family sessions as clinically appropriate. Risks/benefits/alternatives were reviewed re: antipsychotics for mood and/or psychosis. Discussion included but was not limited to metabolic side effects, risks of TD and suicidal thoughts. There were no abnormal motor movements at baseline. Fasting glucose and lipid panel ordered for baseline monitoring. She agreed to continue Risperdal prn and add BID dosing for now while considers Invega trial as monthly [facility]. (2) Polysubstance (excluding opioids) dependence: 03/04/21--d/c AWSS, patient continues to refuse rehab. 03/03/21--only scored 1 last night on AWSS for subjective anxiety. 03/02/21 AWSS protocol with Ativan prn as risk of withdrawal, will not neurontin load as on some standing/restarting and current use is sporadic and less likely to cause ETOH withdrawal. The patient's AUDIT score suggests problematic drinking (Zone III WHO) and meth use is particularly problematic given her hx of aud garcia. Brief intervention was offered and accepted. Intervention was greater than 5 min in length and included assessing readiness to quit, advice on how to reduce or abstain from alcohol and other substances, and to set a specific goal for this hospitalization. hot stick worker will also assist in anticipating barriers to sobriety and in problem-solving for solutions to those problems while arranging for referral to appropriate treatment. The patient is in contemplation stage with regards to transtheoretical model of change as wants help to get back on psych meds but is ambivalent around rehab. The patient is advised to abstain from ETOH and meth, and other substances due to depressant effects and risk of interaction with prescription medications and psychosis. The patient will be provided with recovery materials to continue to educate self on how to cope with their condition without drinking. Inventory Assets Strengths: housing, relationship Needs: outpatient providers Risk Factors Assessment Male: No : Yes Do You Have Access To A Gun?: No (will confirm) Mental Health Diagnoses: No Substance Use Disorders: Yes Previous Attempt: Yes Previous Psychiatric Hospitalization: Yes Hopelessness: Yes Smoker: Yes Protective Factors Assessment : No Responsible for Young Children: Yes Employed: No Supportive Family: Yes Good Rapport with Provider: No Interval History Chief Complaint "I can't get in touch with him, I think he's been arrested". (referring to her boyfriend) Review of Systems Sleep Information Total Hours of Sleep: 6 Meal Information Percent Meal Consumed - Breakfast: 100 Percent Meal Consumed - Lunch: 100 Percent Meal Consumed - Dinner: 100 Subjective Subjective Patient was seen & assessed and interval progress reviewed with treatment team. Family session scheduled for tomorrow as patient as been reclusive to room, experiencing garcia and significant anxiety related to paranoia. She has not been scoring on the AWSS other than anxiety but did benefit from initiation of Klonopin yesterday, seemingly for meth withdrawal. Today she is up and groomed. She is able to engage in meaningful discussion around rehab and KIRBY and agrees to latter. She is tolerating Risperdal and states voices started after she couldn't reach boyfriend on phone and told her he was or son was home alone, etc. Distressing but somewhat less frequent and distressing. Physical Exam Psychiatric Orientation: alert Apperance: appropriately groomed Eye Contact: + fair eye contact Motor Behavior: no abnormal motor movements Speech: normal rate/rhythm/volume of speech Affect: + depressed affect (more spontaneous) Mood: + depressed mood and + anxious mood Thought Process: + circumstantial thought process and + concrete thought process Thought Content: + paranoid and + delusions Suicidal Thoughts: denies suicidal thoughts Homicidal Thoughts: denies homicidal thoughts Hallucinations: + auditory hallucinations; no visual hallucinations Cognition: language grossly intact; + attention not intact Estimated Intelligence: consistent with education level Insight: + poor insight Judgement: + poor judgement Vital Signs (Past 24 Hours) Last Vital Signs Temp 36.8 C 03/04/21 06:50 Pulse 92 H 03/04/21 06:50 Resp 16 03/04/21 06:50 BP 133/81 03/04/21 06:50 Pulse Ox 99 03/02/21 19:02 Results & Data ([facility]) Laboratory Results Laboratory Results - last 24 hr 03/01/21 12:49 U Amphetamines Confirm 23482 H U Methamphetamin Confrm >01582 H Urine MDEA negative MDMA negative Urine MDMA negative Drug Screen Comment SEE NOTE Current Inpatient Medications Current Inpatient Medications: Current Inpatient Medications Acetaminophen (Acetaminophen 325 Mg Tab) 650 mg PO Q4H PRN PRN Reason: Headache or Minor Fever Stop: 03/31/21 18:19 Al Hydrox/Mg Hydrox/Simethicone (Aluminum/Magnesium Susp 30 Ml Udc) 30 ml PO Q4H PRN PRN Reason: GI Upset Stop: 03/31/21 18:19 Last Admin: 03/02/21 18:58 Dose: 30 ml Documented by: Aspirin (Aspirin 81 Mg Ectab) 81 mg PO DAILY [facility] Stop: 04/01/21 10:14 Last Admin: 03/04/21 09:45 Dose: 81 mg Documented by: Atorvastatin Calcium (Atorvastatin 40 Mg Tab) 80 mg PO QPM [facility] Stop: 04/01/21 20:59 Last Admin: 03/03/21 20:35 Dose: 80 mg Documented by: Benztropine Mesylate (Benztropine Mesylate 0.5 Mg Tab) 0.5 mg PO Q6 PRN PRN Reason: Muscle Spasm Stop: 04/01/21 09:51 Bismuth Subsalicylate (Bismuth Subsalicylate Liqd 236 Ml) 15 ml PO PRN PRN PRN Reason: Loose Stool Stop: 03/31/21 18:19 Clonazepam (Clonazepam 0.5 Mg Tab) 0.5 mg PO BID17 [facility] Stop: 04/02/21 09:41 Last Admin: 03/04/21 09:49 Dose: 0.5 mg Documented by: Clopidogrel Bisulfate (Clopidogrel Bisulfate 75 Mg Tab) 75 mg PO QAM [facility] Stop: 04/01/21 10:14 Last Admin: 03/04/21 09:47 Dose: 75 mg Documented by: Folic Acid (Folic Acid 1 Mg Tab) 1 mg PO QAM [facility] Stop: 04/01/21 09:59 Last Admin: 03/04/21 09:47 Dose: 1 mg Documented by: Gabapentin (Gabapentin 100 Mg Cap) 200 mg PO HS [facility] Stop: 04/01/21 21:59 Last Admin: 03/03/21 20:35 Dose: 200 mg Documented by: Hydroxyzine HCl (Hydroxyzine Hcl 25 Mg Tab) 50 mg PO HSZ PRN PRN Reason: Insomnia Stop: 03/31/21 18:19 Last Admin: 03/02/21 23:30 Dose: 50 mg Documented by: Hydroxyzine HCl (Hydroxyzine Hcl 25 Mg Tab) 25 mg PO Q4H PRN PRN Reason: Anxiety Stop: 03/31/21 18:19 Last Admin: 03/02/21 18:58 Dose: 25 mg Documented by: Levothyroxine Sodium (Levothyroxine Sodium 25 Mcg Tablet) 25 mcg PO DAILYBB [facility] Stop: 04/02/21 07:59 Last Admin: 03/04/21 09:05 Dose: 25 mcg Documented by: Lorazepam (Lorazepam 1 Mg Tab) 1 - 3 mg PO UD PRN; Protocol PRN Reason: EtoH Withdrawal AWSS 6-10+ Stop: 03/31/21 18:19 Magnesium Hydroxide (Magnesium Hydroxide Susp 30 Ml Udc) 30 ml PO DAILY PRN PRN Reason: Constipation Stop: 03/31/21 18:19 Metoprolol Succinate (Metoprolol Succ 25mg Ext Rel Tab) 25 mg PO DAILY [facility] Stop: 04/01/21 10:14 Last Admin: 03/04/21 09:47 Dose: 25 mg Documented by: Miscellaneous (Remove Nicoderm Patch) 1 ea N/A DAILY@0859 [facility] Stop: 04/01/21 08:58 Last Admin: 03/04/21 09:45 Dose: 1 ea Documented by: Multivitamins/Minerals (Cerovite Adv Formula Tab) 1 tab PO QAM [facility] Stop: 04/01/21 10:14 Last Admin: 03/04/21 09:47 Dose: 1 tab Documented by: Nicotine (Nicotine 21 Mg/24 Hr Tdsy) 21 mg TD QAM [facility] Stop: 03/31/21 21:59 Last Admin: 03/04/21 09:45 Dose: 21 mg Documented by: Nicotine Polacrilex (Nicotine Polacrilex 2 Mg Gum) 1 piece MT PRN PRN PRN Reason: cravings Stop: 03/31/21 21:50 Paliperidone (Paliperidone 3 Mg Tabcr) 3 mg PO QAM [facility] Stop: 04/03/21 11:29 Pantoprazole Sodium (Pantoprazole 40 Mg Tab) 40 mg PO QAM [facility] Stop: 04/01/21 10:14 Last Admin: 03/04/21 09:47 Dose: 40 mg Documented by: Risperidone (Risperidone 1 Mg Tablet) 1 mg PO Q6 PRN PRN Reason: psychosis Stop: 03/31/21 18:28 Last Admin: 03/02/21 09:51 Dose: 1 mg Documented by: Risperidone (Risperidone 1 Mg Tablet) 1 mg PO HS [facility] Stop: 04/03/21 21:59 Sodium Chloride (Sodium Chloride 0.65% Na Soln 45 Ml ([place])) 1 - 2 sprays NA PRN PRN PRN Reason: Nasal Dryness/Congestion Stop: 03/31/21 18:19 Thiamine HCl (Thiamine Hcl 50 Mg Tablet) 50 mg PO QAM [facility] Stop: 04/01/21 10:14 Last Admin: 03/04/21 09:48 Dose: 50 mg Documented by: Vitamin D (Cholecalciferol 1,000 Units 25 Mcg Tab) 5,000 units PO DAILY [facility] Stop: 04/02/21 08:59 Last Admin: 03/04/21 09:46 Dose: 5,000 units Documented by: (1) Schizoaffective disorder Schizoaffective disorder type: depressive Qualified Code(s): F25.1 - Schizoaffective disorder, depressive type
[2021-03-04] MEDS: PALIPERIDONE 3 MG TABCR PO SCH (12:21)
[2021-03-04] MEDS: ATORVASTATIN 40 MG TAB PO SCH (21:23)
[2021-03-04] MEDS: GABAPENTIN 100 MG CAP PO SCH (21:24)
[2021-03-04] MEDS ORDERED: risperiDONE 1 MG TABLET PO SCH (22:00)
[2021-03-05] MEDS: LEVOTHYROXINE SODIUM 25 MCG TABLET PO SCH (08:14)
[2021-03-05] MEDS: ASPIRIN 81 MG ECTAB PO SCH (08:14)
[2021-03-05] MEDS: CHOLECALCIFEROL 1,000 UNITS 25 MCG TAB PO SCH (08:15)
[2021-03-05] MEDS: METOPROLOL SUCC 25MG EXT REL TAB PO SCH (08:16)
[2021-03-05] MEDS: CLOPIDOGREL BISULFATE 75 MG TAB PO SCH (08:16)
[2021-03-05] MEDS: FOLIC ACID 1 MG TAB PO SCH (08:16)
[2021-03-05] MEDS: PANTOprazole 40 MG TAB PO SCH (08:17)
[2021-03-05] MEDS: CEROVITE ADV FORMULA TAB PO SCH (08:17)
[2021-03-05] MEDS: THIAMINE HCL 50 MG TABLET PO SCH (08:17)
[2021-03-05] MEDS: PALIPERIDONE 3 MG TABCR PO SCH (08:17)
[2021-03-05] MEDS: clonazePAM 0.5 MG TAB PO SCH ×2 (08:20→16:44)
[2021-03-05] MEDS: NICOTINE 21 MG/24 HR TDSY TD SCH (08:23)
[2021-03-05] MEDS: ALUMINUM/MAGNESIUM SUSP 30 ML UDC PO PRN (10:04)
--- NOTE | 2021-03-05 10:34 | XRay Report ---
XR chest 1V portable CLINICAL HISTORY: Atypical chest pain. Shortness of breath COMPARISON STUDY: 06/29/2019 FINDINGS: The heart is normal in size. There is no failure. There is no focal pulmonary consolidation . There are no pleural effusions. There are suspected calcified mediastinal and right hilar lymph nod es. These are likely on a postinflammatory basis. These remain similar to the prior study.[ IMPRESSION: 1. No active disease in the chest 2. Right hilar and mediastinal calcified lymph nodes likely postinflammatory ACT 112: Negative or not required by law. Electronically signed by: Matty Austin M.D. 03/05/2021 10:33 AM
--- NOTE | 2021-03-05 15:06 | Psychiatric Progress Note ---
Date of Service March 05, 2021 Impression / Recommendations Impression 50 yo female with schizoaffective disorder, chronic paranoia/aud garcia at baseline now worsening due to depression and increase in meth use, ongoing ETOH misuse with hx last stay of up to 30 beers a day. 03/04/21--garcia continue to improve but now more somatic and remains resistant to rehab. (1) Schizoaffective disorder: 03/05/21--continue cross taper to Invega. Risperdal 0.5 mg this hs then d/c in favor of Invega 6 mg po qam. 03/04/21--Risks/benefits/alternatives reviewed re: conversion to Invega as trial given availability of monthly KIRBY. Invega sustenna is covered by her insurance per nursing. 03/03/21--continue Risperdal 1 mg BID with prn. As patient is having ongoing anxiety related to garcia and withdrawing from meth will offer short term use of benzodiazepine. Risks/benefits/alternatives reviewed and she is aware this medication is for short term use only while monitored in hospital and will not be prescribed at discharge. Patient agreed to Klonopin 0.5 mg BID. 03/02/21 The patient was admitted to the [facility] ([facility] unit) on q15 min checks (behavioral with suicide precautions) for safety. The patient will participate in group, recreational, and milieu therapies and will be offered additional individual and family sessions as clinically appropriate. Risks/benefits/alternatives were reviewed re: antipsychotics for mood and/or psychosis. Discussion included but was not limited to metabolic side effects, risks of TD and suicidal thoughts. There were no abnormal motor movements at baseline. Fasting glucose and lipid panel ordered for baseline monitoring. She agreed to continue Risperdal prn and add BID dosing for now while considers Invega trial as monthly KIRBY. (2) Polysubstance (excluding opioids) dependence: 03/04/21--d/c AWSS, patient continues to refuse rehab. 03/03/21--only scored 1 last night on AWSS for subjective anxiety. 03/02/21 AWSS protocol with Ativan prn as risk of withdrawal, will not neurontin load as on some standing/restarting and current use is sporadic and less likely to cause ETOH withdrawal. The patient's AUDIT score suggests problematic drinking (Zone III WHO) and meth use is particularly problematic given her hx of mary garcia. Brief intervention was offered and accepted. Intervention was greater than 5 min in length and included assessing readiness to quit, advice on how to reduce or abstain from alcohol and other substances, and to set a specific goal for this hospitalization. cash office worker will also assist in anticipating barriers to sobriety and in problem-solving for solutions to those problems while arranging for referral to appropriate treatment. The patient is in contemplation stage with regards to transtheoretical model of change as wants help to get back on psych meds but is ambivalent around rehab. The patient is advised to abstain from ETOH and meth, and other substances due to depressant effects and risk of interaction with prescription medications and psychosis. The patient will be provided with recovery materials to continue to educate self on how to cope with their condition without drinking. (3) Chest pain: 03/05/21--likely anxiety but did not want to ignore given hx of CAD. CXR and EKG ordered. No ST elevations to suggest ischemia, 1 set of toponins negative. Pain resolved as I was discussing possible consult with hospitalist. Moving to the med floor for monitoring would be less therapeutic environment and disrupt the care for her anxiety which appears to be the cause. . Inventory Assets Strengths: housing, relationship Needs: outpatient providers Risk Factors Assessment Male: No : Yes Do You Have Access To A Gun?: No (will confirm) Mental Health Diagnoses: No Substance Use Disorders: Yes Previous Attempt: Yes Previous Psychiatric Hospitalization: Yes Hopelessness: Yes Smoker: Yes Protective Factors Assessment : No Responsible for Young Children: Yes Employed: No Supportive Family: Yes Good Rapport with Provider: No Interval History Chief Complaint "they aren't too bad today but my chest hurts". referring to mary garcia Review of Systems Sleep Information Total Hours of Sleep: 9.75 Meal Information Percent Meal Consumed - Breakfast: 25 Percent Meal Consumed - Lunch: 100 Percent Meal Consumed - Dinner: 100 Subjective Subjective Patient was seen & assessed and interval progress reviewed with nursing and social work. Patient was lying down rather than attending group after breakfast. Denied concerns for family safety but states "I know those drugs messed up my heart". She said she felt tight and anxious with her breathing. She was unable to rate her pain. Timing seemed somewhat related to family session scheduled as partner very much wants her to return to rehab and she is refusing. Physical Exam Psychiatric Orientation: alert Apperance: + disheveled Eye Contact: + poor eye contact Motor Behavior: no abnormal motor movements Speech: normal rate/rhythm/volume of speech Affect: + depressed affect Mood: + depressed mood and + anxious mood Thought Process: + circumstantial thought process and + concrete thought process Thought Content: + delusions Suicidal Thoughts: denies suicidal thoughts Homicidal Thoughts: denies homicidal thoughts Hallucinations: + auditory hallucinations; no visual hallucinations Cognition: language grossly intact; + attention not intact Estimated Intelligence: consistent with education level Insight: + poor insight Judgement: + poor judgement Vital Signs (Past 24 Hours) Last Vital Signs Temp 36.7 C 03/05/21 06:48 Pulse 87 03/05/21 06:49 Resp 16 03/05/21 06:48 BP 127/90 03/05/21 06:49 Pulse Ox 95 03/04/21 21:30 Respiratory Auscultation: + diminished lung sounds (bases bilaterally but poor inspiratory effort) Cardiovascular Rate/Rhythm: regular rate Heart Sounds: normal S1 and normal S2 Results & Data ([facility]) Laboratory Results Laboratory Results - last 24 hr 03/05/21 11:57 Troponin I < 0.015 Current Inpatient Medications Current Inpatient Medications: Current Inpatient Medications Acetaminophen (Acetaminophen 325 Mg Tab) 650 mg PO Q4H PRN PRN Reason: Headache or Minor Fever Stop: 03/31/21 18:19 Al Hydrox/Mg Hydrox/Simethicone (Aluminum/Magnesium Susp 30 Ml Udc) 30 ml PO Q4H PRN PRN Reason: GI Upset Stop: 03/31/21 18:19 Last Admin: 03/05/21 10:04 Dose: 30 ml Documented by: Aspirin (Aspirin 81 Mg Ectab) 81 mg PO DAILY [facility] Stop: 04/01/21 10:14 Last Admin: 03/05/21 08:14 Dose: 81 mg Documented by: Atorvastatin Calcium (Atorvastatin 40 Mg Tab) 80 mg PO QPM [facility] Stop: 04/01/21 20:59 Last Admin: 03/04/21 21:23 Dose: 80 mg Documented by: Benztropine Mesylate (Benztropine Mesylate 0.5 Mg Tab) 0.5 mg PO Q6 PRN PRN Reason: Muscle Spasm Stop: 04/01/21 09:51 Bismuth Subsalicylate (Bismuth Subsalicylate Liqd 236 Ml) 15 ml PO PRN PRN PRN Reason: Loose Stool Stop: 03/31/21 18:19 Clonazepam (Clonazepam 0.5 Mg Tab) 0.5 mg PO BID17 [facility] Stop: 04/02/21 09:41 Last Admin: 03/05/21 08:20 Dose: 0.5 mg Documented by: Clopidogrel Bisulfate (Clopidogrel Bisulfate 75 Mg Tab) 75 mg PO QAM [facility] Stop: 04/01/21 10:14 Last Admin: 03/05/21 08:16 Dose: 75 mg Documented by: Folic Acid (Folic Acid 1 Mg Tab) 1 mg PO QAM [facility] Stop: 04/01/21 09:59 Last Admin: 03/05/21 08:16 Dose: 1 mg Documented by: Gabapentin (Gabapentin 100 Mg Cap) 200 mg PO HS [facility] Stop: 04/01/21 21:59 Last Admin: 03/04/21 21:24 Dose: 200 mg Documented by: Hydroxyzine HCl (Hydroxyzine Hcl 25 Mg Tab) 50 mg PO HSZ PRN PRN Reason: Insomnia Stop: 03/31/21 18:19 Last Admin: 03/02/21 23:30 Dose: 50 mg Documented by: Hydroxyzine HCl (Hydroxyzine Hcl 25 Mg Tab) 25 mg PO Q4H PRN PRN Reason: Anxiety Stop: 03/31/21 18:19 Last Admin: 03/02/21 18:58 Dose: 25 mg Documented by: Levothyroxine Sodium (Levothyroxine Sodium 25 Mcg Tablet) 25 mcg PO DAILYBB [facility] Stop: 04/02/21 07:59 Last Admin: 03/05/21 08:14 Dose: 25 mcg Documented by: Magnesium Hydroxide (Magnesium Hydroxide Susp 30 Ml Udc) 30 ml PO DAILY PRN PRN Reason: Constipation Stop: 03/31/21 18:19 Metoprolol Succinate (Metoprolol Succ 25mg Ext Rel Tab) 25 mg PO DAILY [facility] Stop: 04/01/21 10:14 Last Admin: 03/05/21 08:16 Dose: 25 mg Documented by: Miscellaneous (Remove Nicoderm Patch) 1 ea N/A DAILY@0859 [facility] Stop: 04/01/21 08:58 Last Admin: 03/05/21 08:16 Dose: 1 ea Documented by: Multivitamins/Minerals (Cerovite Adv Formula Tab) 1 tab PO QAM [facility] Stop: 04/01/21 10:14 Last Admin: 03/05/21 08:17 Dose: 1 tab Documented by: Nicotine (Nicotine 21 Mg/24 Hr Tdsy) 21 mg TD QAM [facility] Stop: 03/31/21 21:59 Last Admin: 03/05/21 08:23 Dose: Not Given Documented by: Nicotine Polacrilex (Nicotine Polacrilex 2 Mg Gum) 1 piece MT PRN PRN PRN Reason: cravings Stop: 03/31/21 21:50 Paliperidone (Paliperidone 3 Mg Tabcr) 6 mg PO QAM [facility] Stop: 04/05/21 08:59 Pantoprazole Sodium (Pantoprazole 40 Mg Tab) 40 mg PO QAM [facility] Stop: 04/01/21 10:14 Last Admin: 03/05/21 08:17 Dose: 40 mg Documented by: Risperidone (Risperidone 1 Mg Tablet) 1 mg PO Q6 PRN PRN Reason: psychosis Stop: 03/31/21 18:28 Last Admin: 03/02/21 09:51 Dose: 1 mg Documented by: Risperidone (Risperidone 0.5 Mg Tablet) 0.5 mg PO ONE ONE Stop: 03/05/21 22:01 Sodium Chloride (Sodium Chloride 0.65% Na Soln 45 Ml ([place])) 1 - 2 sprays NA PRN PRN PRN Reason: Nasal Dryness/Congestion Stop: 03/31/21 18:19 Thiamine HCl (Thiamine Hcl 50 Mg Tablet) 50 mg PO QAM [facility] Stop: 04/01/21 10:14 Last Admin: 03/05/21 08:17 Dose: 50 mg Documented by: Vitamin D (Cholecalciferol 1,000 Units 25 Mcg Tab) 5,000 units PO DAILY [facility] Stop: 04/02/21 08:59 Last Admin: 03/05/21 08:15 Dose: 5,000 units Documented by: Mental Health & Subst Abuse Tx Psychiatrist Name of Psychiatrist: Artem Cordero Psychiatrist's Psychiatric Appointment Comment: Will be scheduled after your intake Therapist Name of Therapist: Artem Marmolejo Therapist's Date of Therapist Appointment: 03/13/21 Time of Therapist Appointment: 8:30 a.m. (In person) Therapy Appointment Comment: [address] [facility], [address], [place] (1) Schizoaffective disorder Schizoaffective disorder type: depressive Qualified Code(s): F25.1 - Schizoaffective disorder, depressive type
--- NOTE | 2021-03-05 15:42 | Electrocardiogram Report ---
Test Reason : Blood Pressure : / mmHG Vent. Rate : 077 BPM Atrial Rate : 077 BPM P-R Int : 140 ms QRS Dur : 092 ms QT Int : 398 ms P-R-T Axes : 041 047 068 degrees QTc Int : 450 ms Normal sinus rhythm Increased R/S ratio in V1, consider early transition or posterior infarct Abnormal ECG When compared with ECG of 01-MAR-2021 12:42, Premature ventricular complexes are no longer Present Nonspecific T wave abnormality no longer evident in Anterior leads Confirmed by Jarvis Bowman ([id number]) on 03/05/2021 3:41:21 PM Referred By: REFERRED SELF Confirmed By:Jarvis Bowman
[2021-03-05] MEDS: ATORVASTATIN 40 MG TAB PO SCH (20:47)
[2021-03-05] MEDS: hydrOXYzine HCl 25 MG TAB PO PRN (20:47)
[2021-03-05] MEDS: GABAPENTIN 100 MG CAP PO SCH (20:48)
[2021-03-05] MEDS ORDERED: risperiDONE 0.5 MG TABLET PO ONE (22:00)
[2021-03-06] MEDS: LEVOTHYROXINE SODIUM 25 MCG TABLET PO SCH (07:51)
[2021-03-06] MEDS: ASPIRIN 81 MG ECTAB PO SCH (08:48)
[2021-03-06] MEDS: CHOLECALCIFEROL 1,000 UNITS 25 MCG TAB PO SCH (08:49)
[2021-03-06] MEDS: CLOPIDOGREL BISULFATE 75 MG TAB PO SCH (08:49)
[2021-03-06] MEDS: clonazePAM 0.5 MG TAB PO SCH (08:49)
[2021-03-06] MEDS: METOPROLOL SUCC 25MG EXT REL TAB PO SCH (08:49)
[2021-03-06] MEDS: FOLIC ACID 1 MG TAB PO SCH (08:49)
[2021-03-06] MEDS: CEROVITE ADV FORMULA TAB PO SCH (08:50)
[2021-03-06] MEDS: PANTOprazole 40 MG TAB PO SCH (08:52)
[2021-03-06] MEDS: PALIPERIDONE 3 MG TABCR PO SCH (08:52)
[2021-03-06] MEDS: THIAMINE HCL 50 MG TABLET PO SCH (08:53)
[2021-03-06] MEDS: NICOTINE 21 MG/24 HR TDSY TD SCH (08:57)
--- NOTE | 2021-03-06 10:09 | Psychiatric Progress Note ---
Date of Service March 06, 2021 Impression / Recommendations Impression 50 yo female with schizoaffective disorder, chronic paranoia/aud garcia at baseline now worsening due to depression and increase in meth use, ongoing ETOH misuse with hx last stay of up to 30 beers a day. 03/06/21--garcia are resolving, unclear if physical complaints are related to cross taper to Invega. (1) Schizoaffective disorder: 03/06/21--Klonopin taper and d/c over next 3 doses as appears more sedated as further through withdrawal. If tolerates Invega may receive first injection as early as tomorrow. 03/05/21--continue cross taper to Invega. Risperdal 0.5 mg this hs then d/c in favor of Invega 6 mg po qam. 03/04/21--Risks/benefits/alternatives reviewed re: conversion to Invega as trial given availability of monthly KIRBY. Invega sustenna is covered by her insurance per nursing. 03/03/21--continue Risperdal 1 mg BID with prn. As patient is having ongoing anxiety related to garcia and withdrawing from meth will offer short term use of benzodiazepine. Risks/benefits/alternatives reviewed and she is aware this medication is for short term use only while monitored in hospital and will not be prescribed at discharge. Patient agreed to Klonopin 0.5 mg BID. 03/02/21 The patient was admitted to the [facility] [place] [place] on q15 min checks (behavioral with suicide precautions) for safety. The patient will participate in group, recreational, and milieu therapies and will be offered additional individual and family sessions as clinically appropriate. Risks/benefits/alternatives were reviewed re: antipsychotics for mood and/or psychosis. Discussion included but was not limited to metabolic side effects, risks of TD and suicidal thoughts. There were no abnormal motor movements at baseline. Fasting glucose and lipid panel ordered for baseline monitoring. She agreed to continue Risperdal prn and add BID dosing for now while considers Invega trial as monthly KIRBY. (2) Polysubstance (excluding opioids) dependence: 03/04/21--d/c AWSS, patient continues to refuse rehab. 03/03/21--only scored 1 last night on AWSS for subjective anxiety. 03/02/21 AWSS protocol with Ativan prn as risk of withdrawal, will not neurontin load as on some standing/restarting and current use is sporadic and less likely to cause ETOH withdrawal. The patient's AUDIT score suggests problematic drinking (Zone III WHO) and meth use is particularly problematic given her hx of aud garcia. Brief intervention was offered and accepted. Intervention was greater than 5 min in length and included assessing readiness to quit, advice on how to reduce or abstain from alcohol and other substances, and to set a specific goal for this hospitalization. structural worker will also assist in anticipating barriers to sobriety and in problem-solving for solutions to those problems while arranging for referral to appropriate treatment. The patient is in contemplation stage with regards to transtheoretical model of change as wants help to get back on psych meds but is ambivalent around rehab. The patient is advised to abstain from ETOH and meth, and other substances due to depressant effects and risk of interaction with prescription medications and psychosis. The patient will be provided with recovery materials to continue to educate self on how to cope with their condition without drinking. (3) Chest pain: 03/06/21--resolved, consistent with anxiety and avoidance of group but will monitor. Current subjective dizziness. 03/05/21--likely anxiety but did not want to ignore given hx of CAD. CXR and EKG ordered. No ST elevations to suggest ischemia, 1 set of toponins negative. Pain resolved as I was discussing possible consult with hospitalist. Moving to the med floor for monitoring would be less therapeutic environment and disrupt the care for her anxiety which appears to be the cause. . Inventory Assets Strengths: housing, relationship Needs: outpatient providers Risk Factors Assessment Male: No : Yes Do You Have Access To A Gun?: No (will confirm) Mental Health Diagnoses: No Substance Use Disorders: Yes Previous Attempt: Yes Previous Psychiatric Hospitalization: Yes Hopelessness: Yes Smoker: Yes Protective Factors Assessment : No Responsible for Young Children: Yes Employed: No Supportive Family: Yes Good Rapport with Provider: No Interval History Chief Complaint "I'm dizzy just now". Review of Systems Sleep Information Total Hours of Sleep: 6.75 Meal Information Percent Meal Consumed - Breakfast: 100 Percent Meal Consumed - Lunch: 100 Percent Meal Consumed - Dinner: 100 Subjective Subjective Patient was seen & assessed and interval progress reviewed with treatment team. Continues to refuse rehab despite partner's encouragement. Spends most of her time in her room rather than group. Reports that her auditory garcia continue to diminish, only experience briefly last night. won't elaborate just "the same old stuff". Denies this am. States ate breakfast without incident, only started feeling light headed when sat up too quickly in bed. Staff checked orthostatics which were negative. She appears tired but denies medication related side effects and admits that she uses somatization to "not deal with stuff". Physical Exam Psychiatric Orientation: alert Apperance: appropriately groomed and + disheveled Eye Contact: + poor eye contact Motor Behavior: no abnormal motor movements Speech: normal rate/rhythm/volume of speech Affect: + depressed affect Mood: + depressed mood and + anxious mood Thought Process: + circumstantial thought process and + concrete thought process Thought Content: + preoccupation Suicidal Thoughts: denies suicidal thoughts Homicidal Thoughts: denies homicidal thoughts Hallucinations: no auditory hallucinations and no visual hallucinations Cognition: language grossly intact; + attention not intact Estimated Intelligence: consistent with education level Insight: + poor insight Judgement: + poor judgement Vital Signs (Past 24 Hours) Last Vital Signs Temp 36.7 C 03/06/21 06:52 Pulse 88 03/06/21 06:52 Resp 16 03/06/21 06:52 BP 129/83 03/06/21 06:52 Pulse Ox 95 03/04/21 21:30 Results & Data ([facility]) Laboratory Results Laboratory Results - last 24 hr 03/05/21 11:57 Troponin I < 0.015 Current Inpatient Medications Current Inpatient Medications: Current Inpatient Medications Acetaminophen (Acetaminophen 325 Mg Tab) 650 mg PO Q4H PRN PRN Reason: Headache or Minor Fever Stop: 03/31/21 18:19 Al Hydrox/Mg Hydrox/Simethicone (Aluminum/Magnesium Susp 30 Ml Udc) 30 ml PO Q4H PRN PRN Reason: GI Upset Stop: 03/31/21 18:19 Last Admin: 03/05/21 10:04 Dose: 30 ml Documented by: Aspirin (Aspirin 81 Mg Ectab) 81 mg PO DAILY [facility] Stop: 04/01/21 10:14 Last Admin: 03/06/21 08:48 Dose: 81 mg Documented by: Atorvastatin Calcium (Atorvastatin 40 Mg Tab) 80 mg PO QPM [facility] Stop: 04/01/21 20:59 Last Admin: 03/05/21 20:47 Dose: 80 mg Documented by: Benztropine Mesylate (Benztropine Mesylate 0.5 Mg Tab) 0.5 mg PO Q6 PRN PRN Reason: Muscle Spasm Stop: 04/01/21 09:51 Bismuth Subsalicylate (Bismuth Subsalicylate Liqd 236 Ml) 15 ml PO PRN PRN PRN Reason: Loose Stool Stop: 03/31/21 18:19 Clonazepam (Clonazepam 0.5 Mg Tab) 0.5 mg PO BID17 [facility] Stop: 04/02/21 09:41 Last Admin: 03/06/21 08:49 Dose: 0.5 mg Documented by: Clopidogrel Bisulfate (Clopidogrel Bisulfate 75 Mg Tab) 75 mg PO QAM [facility] Stop: 04/01/21 10:14 Last Admin: 03/06/21 08:49 Dose: 75 mg Documented by: Folic Acid (Folic Acid 1 Mg Tab) 1 mg PO QAM [facility] Stop: 04/01/21 09:59 Last Admin: 03/06/21 08:49 Dose: 1 mg Documented by: Gabapentin (Gabapentin 100 Mg Cap) 200 mg PO HS [facility] Stop: 04/01/21 21:59 Last Admin: 03/05/21 20:48 Dose: 200 mg Documented by: Hydroxyzine HCl (Hydroxyzine Hcl 25 Mg Tab) 50 mg PO HSZ PRN PRN Reason: Insomnia Stop: 03/31/21 18:19 Last Admin: 03/05/21 20:47 Dose: 50 mg Documented by: Hydroxyzine HCl (Hydroxyzine Hcl 25 Mg Tab) 25 mg PO Q4H PRN PRN Reason: Anxiety Stop: 03/31/21 18:19 Last Admin: 03/02/21 18:58 Dose: 25 mg Documented by: Levothyroxine Sodium (Levothyroxine Sodium 25 Mcg Tablet) 25 mcg PO DAILYBB [facility] Stop: 04/02/21 07:59 Last Admin: 03/06/21 07:51 Dose: 25 mcg Documented by: Magnesium Hydroxide (Magnesium Hydroxide Susp 30 Ml Udc) 30 ml PO DAILY PRN PRN Reason: Constipation Stop: 03/31/21 18:19 Metoprolol Succinate (Metoprolol Succ 25mg Ext Rel Tab) 25 mg PO DAILY [facility] Stop: 04/01/21 10:14 Last Admin: 03/06/21 08:49 Dose: 25 mg Documented by: Miscellaneous (Remove Nicoderm Patch) 1 ea N/A DAILY@0859 [facility] Stop: 04/01/21 08:58 Last Admin: 03/06/21 08:48 Dose: 1 ea Documented by: Multivitamins/Minerals (Cerovite Adv Formula Tab) [facility] [place] 04/01/21 10:14 Last Admin: 03/06/21 08:50 Dose: 1 tab Documented by: Nicotine (Nicotine 21 Mg/24 Hr Tdsy) 21 mg TD QAM [facility] Stop: 03/31/21 21:59 Last Admin: 03/06/21 08:57 Dose: Not Given Documented by: Nicotine Polacrilex (Nicotine Polacrilex 2 Mg Gum) 1 piece MT PRN PRN PRN Reason: cravings Stop: 03/31/21 21:50 Paliperidone (Paliperidone 3 Mg Tabcr) [facility] [place]: 04/05/21 08:59 Last Admin: 03/06/21 08:52 Dose: 6 mg Documented by: Pantoprazole Sodium (Pantoprazole 40 Mg Tab) 40 mg PO QAM [facility] Stop: 04/01/21 10:14 Last Admin: 03/06/21 08:52 Dose: 40 mg Documented by: Risperidone (Risperidone 1 Mg Tablet) 1 mg PO Q6 PRN PRN Reason: psychosis Stop: 03/31/21 18:28 Last Admin: 03/02/21 09:51 Dose: 1 mg Documented by: Sodium Chloride (Sodium Chloride 0.65% Na Soln 45 Ml ([place])) 1 - 2 sprays NA PRN PRN PRN Reason: Nasal Dryness/Congestion Stop: 03/31/21 18:19 Thiamine HCl (Thiamine Hcl 50 Mg Tablet) 50 mg PO QAM [facility] Stop: 04/01/21 10:14 Last Admin: 03/06/21 08:53 Dose: 50 mg Documented by: Vitamin D (Cholecalciferol 1,000 Units 25 Mcg Tab) 5,000 units PO DAILY [facility] Stop: 04/02/21 08:59 Last Admin: 03/06/21 08:49 Dose: 5,000 units Documented by: Mental Health & Subst Abuse Tx Psychiatrist Name of Psychiatrist: [facility] (probably [facility] instead) Psychiatrist's Psychiatric Appointment Comment: Will be scheduled after your intake Therapist Name of Therapist: Artem Marmolejo Therapist's Date of Therapist Appointment: 03/13/21 Time of Therapist Appointment: 8:30 a.m. (In person) Therapy Appointment Comment: [address] [facility], [address], [place] Post Discharge Appointments Primary Care Physician Name Of Family Doctor: Dr. Self- [facility] [place] Primary Care Date of Appointment with PCP: 03/12/21 Time of Appointment with PCP: 2:15 pm Provider Appointment Comment: [address] [place] [address] (1) Schizoaffective disorder Schizoaffective disorder type: depressive Qualified Code(s): F25.1 - Schizoaffective disorder, depressive type
[2021-03-06] MEDS: clonazePAM 0.25 MG TAB PO SCH (16:46)
[2021-03-06] MEDS: ATORVASTATIN 40 MG TAB PO SCH (20:22)
[2021-03-06] MEDS: GABAPENTIN 100 MG CAP PO SCH (20:22)
[2021-03-07] MEDS: METOPROLOL SUCC 25MG EXT REL TAB PO SCH (08:37)
[2021-03-07] MEDS: PANTOprazole 40 MG TAB PO SCH (08:38)
[2021-03-07] MEDS: PALIPERIDONE 3 MG TABCR PO SCH (08:38)
[2021-03-07] MEDS: THIAMINE HCL 50 MG TABLET PO SCH (08:38)
[2021-03-07] MEDS: CHOLECALCIFEROL 1,000 UNITS 25 MCG TAB PO SCH (08:39)
[2021-03-07] MEDS: ASPIRIN 81 MG ECTAB PO SCH (08:39)
[2021-03-07] MEDS: CEROVITE ADV FORMULA TAB PO SCH (08:39)
[2021-03-07] MEDS: CLOPIDOGREL BISULFATE 75 MG TAB PO SCH (08:40)
[2021-03-07] MEDS: LEVOTHYROXINE SODIUM 25 MCG TABLET PO SCH (08:40)
[2021-03-07] MEDS: FOLIC ACID 1 MG TAB PO SCH (08:40)
[2021-03-07] MEDS: clonazePAM 0.25 MG TAB PO SCH ×2 (08:41→17:06)
[2021-03-07] MEDS: NICOTINE 21 MG/24 HR TDSY TD SCH (08:47)
--- NOTE | 2021-03-07 11:29 | Psychiatric Progress Note ---
Date of Service March 07, 2021 Impression / Recommendations Impression 50 yo female with schizoaffective disorder, chronic paranoia/aud garcia at baseline now worsening due to depression and increase in meth use, ongoing ETOH misuse with hx last stay of up to 30 beers a day. 03/07/21--psychosis improving, mood still remains low. will administer 234 of Invega Sustenna today. 03/06/21--garcia are resolving, unclear if physical complaints are related to cross taper to Invega. (1) Schizoaffective disorder: 03/06/21--Klonopin taper and d/c over next 3 doses as appears more sedated as further through withdrawal. If tolerates Invega may receive first injection as early as tomorrow. 03/05/21--continue cross taper to Invega. Risperdal 0.5 mg this hs then d/c in favor of Invega 6 mg po qam. 03/04/21--Risks/benefits/alternatives reviewed re: conversion to Invega as trial given availability of monthly KIRBY. Invega sustenna is covered by her insurance per nursing. 03/03/21--continue Risperdal 1 mg BID with prn. As patient is having ongoing anxiety related to garcia and withdrawing from meth will offer short term use of benzodiazepine. Risks/benefits/alternatives reviewed and she is aware this medication is for short term use only while monitored in hospital and will not be prescribed at discharge. Patient agreed to Klonopin 0.5 mg BID. 03/02/21 The patient was admitted to the [facility] ([facility]) on q15 min checks (behavioral with suicide precautions) for safety. The patient will participate in group, recreational, and milieu therapies and will be offered additional individual and family sessions as clinically appropriate. Risks/benefits/alternatives were reviewed re: antipsychotics for mood and/or psychosis. Discussion included but was not limited to metabolic side effects, risks of TD and suicidal thoughts. There were no abnormal motor movements at baseline. Fasting glucose and lipid panel ordered for baseline monitoring. She agreed to continue Risperdal prn and add BID dosing for now while considers Invega trial as monthly KIRBY. (2) Polysubstance (excluding opioids) dependence: 03/04/21--d/c AWSS, patient continues to refuse rehab. 03/03/21--only scored 1 last night on AWSS for subjective anxiety. 03/02/21 AWSS protocol with Ativan prn as risk of withdrawal, will not neurontin load as on some standing/restarting and current use is sporadic and less likely to cause ETOH withdrawal. The patient's AUDIT score suggests problematic drinking (Zone III WHO) and meth use is particularly problematic given her hx of aud garcia. Brief intervention w as offered and accepted. Intervention was greater than 5 min in length and included assessing readiness to quit, advice on how to reduce or abstain from alcohol and other substances, and to set a specific goal for this hospitalization. drying can worker will also assist in anticipating barriers to sobriety and in problem-solving for solutions to those problems while arranging for referral to appropriate treatment. The patient is in contemplation stage with regards to transtheoretical model of change as wants help to get back on psych meds but is ambivalent around rehab. The patient is advised to abstain from ETOH and meth, and other substances due to depressant effects and risk of interaction with prescription medications and psychosis. The patient will be provided with recovery materials to continue to educate self on how to cope with their condition without drinking. (3) Chest pain: 03/06/21--resolved, consistent with anxiety and avoidance of group but will monitor. Current subjective dizziness. 03/05/21--likely anxiety but did not want to ignore given hx of CAD. CXR and EKG ordered. No ST elevations to suggest ischemia, 1 set of toponins negative. Pain resolved as I was discussing possible consult with hospitalist. Moving to the med floor for monitoring would be less therapeutic environment and disrupt the care for her anxiety which appears to be the cause. . Inventory Assets Strengths: housing, relationship Needs: outpatient providers Risk Factors Assessment Male: No : Yes Do You Have Access To A Gun?: No (will confirm) Mental Health Diagnoses: No Substance Use Disorders: Yes Previous Attempt: Yes Previous Psychiatric Hospitalization: Yes Hopelessness: Yes Smoker: Yes Protective Factors Assessment : No Responsible for Young Children: Yes Employed: No Supportive Family: Yes Good Rapport with Provider: No Interval History Chief Complaint "I'm okay, I thought about it and I'm ready for invega injection". Review of Systems Sleep Information Total Hours of Sleep: 8 Meal Information Percent Meal Consumed - Breakfast: 100 Percent Meal Consumed - Lunch: 100 Percent Meal Consumed - Dinner: 100 Nutrition Comment: per meal record Subjective Subjective Patient was seen & assessed and interval progress reviewed with treatment team nursing and social work. Patient states that she has been able to sleep well but still remains tired. Denies issues with appetite and reports eating her meals without problem. Regarding mood, patient still endorsed depression. Remains isolative in room. Affect appears flat. psychotic symptoms appear better. Patient denied any side effects of medication. No side effects observed or reported. patient agreeable with plan to administer Invega injection today. Risks and benefits reviewed. Physical Exam Psychiatric Orientation: alert Apperance: appropriately groomed and + disheveled Eye Contact: + fair eye contact and + poor eye contact Motor Behavior: no abnormal motor movements Speech: normal rate/rhythm/volume of speech Affect: + depressed affect Mood: + depressed mood and + anxious mood Thought Process: + circumstantial thought process and + concrete thought process Thought Content: + preoccupation, + paranoid, + delusions and + persecution Suicidal Thoughts: denies suicidal thoughts Homicidal Thoughts: denies homicidal thoughts Hallucinations: no auditory hallucinations and no visual hallucinations Cognition: language grossly intact; + attention not intact Estimated Intelligence: consistent with education level Insight: + poor insight Judgement: + poor judgement Vital Signs (Past 24 Hours) Last Vital Signs Temp 36.4 C L 03/07/21 06:00 Pulse 88 03/07/21 06:36 Resp 16 03/07/21 06:00 BP 117/67 03/07/21 06:36 Pulse Ox 95 03/04/21 21:30 Respiratory Auscultation: + diminished lung sounds (bases bilaterally but poor inspiratory effort) Cardiovascular Rate/Rhythm: regular rate Heart Sounds: normal S1 and normal S2 Results & Data ([facility]) Current Inpatient Medications Current Inpatient Medications: Current Inpatient Medications Acetaminophen (Acetaminophen 325 Mg Tab) 650 mg PO Q4H PRN PRN Reason: Headache or Minor Fever Stop: 03/31/21 18:19 Al Hydrox/Mg Hydrox/Simethicone (Aluminum/Magnesium Susp 30 Ml Udc) 30 ml PO Q4H PRN PRN Reason: GI Upset Stop: 03/31/21 18:19 Last Admin: 03/05/21 10:04 Dose: 30 ml Documented by: Aspirin (Aspirin 81 Mg Ectab) 81 mg PO DAILY [facility] Stop: 04/01/21 10:14 Last Admin: 03/07/21 08:39 Dose: 81 mg Documented by: Atorvastatin Calcium (Atorvastatin 40 Mg Tab) 80 mg PO QPM [facility] Stop: 04/01/21 20:59 Last Admin: 03/06/21 20:22 Dose: 80 mg Documented by: Benztropine Mesylate (Benztropine Mesylate 0.5 Mg Tab) 0.5 mg PO Q6 PRN PRN Reason: Muscle Spasm Stop: 04/01/21 09:51 Bismuth Subsalicylate (Bismuth Subsalicylate Liqd 236 Ml) 15 ml PO PRN PRN PRN Reason: Loose Stool Stop: 03/31/21 18:19 Clonazepam (Clonazepam 0.25 Mg Tab) 0.25 mg PO BID17 [facility] Stop: 03/07/21 17:01 Last Admin: 03/07/21 08:41 Dose: 0.25 mg Documented by: Clopidogrel Bisulfate (Clopidogrel Bisulfate 75 Mg Tab) 75 mg PO QAM [facility] Stop: 04/01/21 10:14 Last Admin: 03/07/21 08:40 Dose: 75 mg Documented by: Folic Acid (Folic Acid 1 Mg Tab) 1 mg PO QAM [facility] Stop: 04/01/21 09:59 Last Admin: 03/07/21 08:40 Dose: 1 mg Documented by: Gabapentin (Gabapentin 100 Mg Cap) 200 mg PO HS [facility] Stop: 04/01/21 21:59 Last Admin: 03/06/21 20:22 Dose: 200 mg Documented by: Hydroxyzine HCl (Hydroxyzine Hcl 25 Mg Tab) 50 mg PO HSZ PRN PRN Reason: Insomnia Stop: 03/31/21 18:19 Last Admin: 03/05/21 20:47 Dose: 50 mg Documented by: Hydroxyzine HCl (Hydroxyzine Hcl 25 Mg Tab) 25 mg PO Q4H PRN PRN Reason: Anxiety Stop: 03/31/21 18:19 Last Admin: 03/02/21 18:58 Dose: 25 mg Documented by: Levothyroxine Sodium (Levothyroxine Sodium 25 Mcg Tablet) 25 mcg PO DAILYBB [facility] Stop: 04/02/21 07:59 Last Admin: 03/07/21 08:40 Dose: 25 mcg Documented by: Magnesium Hydroxide (Magnesium Hydroxide Susp 30 Ml Udc) 30 ml PO DAILY PRN PRN Reason: Constipation Stop: 03/31/21 18:19 Last Admin: 03/06/21 19:14 Dose: 30 ml Documented by: Metoprolol Succinate (Metoprolol Succ 25mg Ext Rel Tab) 25 mg PO DAILY [facility] Stop: 04/01/21 10:14 Last Admin: 03/07/21 08:37 Dose: 25 mg Documented by: Miscellaneous (Remove Nicoderm Patch) 1 ea N/A DAILY@0859 [facility] Stop: 04/01/21 08:58 Last Admin: 03/07/21 08:42 Dose: Not Given Documented by: Multivitamins/Minerals (Cerovite Adv Formula Tab) 1 tab PO [facility] Stop: 04/01/21 10:14 Last Admin: 03/07/21 08:39 Dose: 1 tab Documented by: Nicotine (Nicotine 21 Mg/24 Hr Tdsy) 21 mg TD [facility] Stop: 03/31/21 21:59 Last Admin: 03/07/21 08:47 Dose: Not Given Documented by: Nicotine Polacrilex (Nicotine Polacrilex 2 Mg Gum) 1 piece MT PRN PRN PRN Reason: cravings Stop: 03/31/21 21:50 Paliperidone (Paliperidone 3 Mg Tabcr) 6 mg PO [facility] Stop: 04/05/21 08:59 Last Admin: 03/07/21 08:38 Dose: 6 mg Documented by: Pantoprazole Sodium (Pantoprazole 40 Mg Tab) 40 mg PO [facility] Stop: 04/01/21 10:14 Last Admin: 03/07/21 08:38 Dose: 40 mg Documented by: Risperidone (Risperidone 1 Mg Tablet) 1 mg PO Q6 PRN PRN Reason: psychosis Stop: 03/31/21 18:28 Last Admin: 03/02/21 09:51 Dose: 1 mg Documented by: Sodium Chloride (Sodium Chloride 0.65% Na Soln 45 Ml ([place])) 1 - 2 sprays NA PRN PRN PRN Reason: Nasal Dryness/Congestion Stop: 03/31/21 18:19 Thiamine HCl (Thiamine Hcl 50 Mg Tablet) 50 mg PO QAM [facility] Stop: 04/01/21 10:14 Last Admin: 03/07/21 08:38 Dose: 50 mg Documented by: Vitamin D (Cholecalciferol 1,000 Units 25 Mcg Tab) 5,000 units PO DAILY [facility] Stop: 04/02/21 08:59 Last Admin: 03/07/21 08:39 Dose: 5,000 units Documented by: Mental Health & Subst Abuse Tx Psychiatrist Name of Psychiatrist: Artem Cordero (probably Marycruz instead) Psychiatrist's Psychiatric Appointment Comment: Will be scheduled after your intake Therapist Name of Therapist: Artem Cordero - Francie Therapist's Date of Therapist Appointment: 03/13/21 Time of Therapist Appointment: 8:30 a.m. (In person) Therapy Appointment Comment: [address], [address], [place] Post Discharge Appointments Primary Care Physician Name Of Family Doctor: Dr. Self- [facility] [place] Primary Care Date of Appointment with PCP: 03/12/21 Time of Appointment with PCP: 2:15 pm Provider Appointment Comment: [address] [place] [place] [address] Other #1: Name of Aftercare Appointment: [facility], appt for long acting injectable Phone Number of Aftercare Appointment: [phone] Date of Aftercare Appointment: 04/10/21 Time of Aftercare Appointment: 10am Aftercare Appointment Comment: & June 18 1:30 with Svetlana Reaves on wait list for earlier appt #2: Name of Aftercare Appointment: [facility] Phone Number of Aftercare Appointment: [phone] Aftercare Appointment Comment: call to schedule for needed appointments at least 3 days in advance (1) Schizoaffective disorder Schizoaffective disorder type: depressive Qualified Code(s): F25.1 - Schizoaffective disorder, depressive type
[2021-03-07] MEDS ORDERED: PALIPERIDONE PALMITATE 234 MG/1.5 ML SYR IM ONE (11:41)
[2021-03-07] MEDS: GABAPENTIN 100 MG CAP PO SCH (21:21)
[2021-03-07] MEDS: ATORVASTATIN 40 MG TAB PO SCH (21:21)
[2021-03-07] MEDS: hydrOXYzine HCl 25 MG TAB PO PRN (21:21)
[2021-03-07] MEDS: risperiDONE 1 MG TABLET PO PRN (21:22)
[2021-03-08] MEDS: PALIPERIDONE 3 MG TABCR PO SCH (08:29)
[2021-03-08] MEDS: FOLIC ACID 1 MG TAB PO SCH (08:30)
[2021-03-08] MEDS: PANTOprazole 40 MG TAB PO SCH (08:30)
[2021-03-08] MEDS: THIAMINE HCL 50 MG TABLET PO SCH (08:30)
[2021-03-08] MEDS: ASPIRIN 81 MG ECTAB PO SCH (08:31)
[2021-03-08] MEDS: CHOLECALCIFEROL 1,000 UNITS 25 MCG TAB PO SCH (08:31)
[2021-03-08] MEDS: LEVOTHYROXINE SODIUM 25 MCG TABLET PO SCH (08:32)
[2021-03-08] MEDS: CLOPIDOGREL BISULFATE 75 MG TAB PO SCH (08:32)
[2021-03-08] MEDS: CEROVITE ADV FORMULA TAB PO SCH (08:32)
[2021-03-08] MEDS: METOPROLOL SUCC 25MG EXT REL TAB PO SCH (08:32)
[2021-03-08] MEDS: NICOTINE 21 MG/24 HR TDSY TD SCH ×2 (08:33→09:50)
--- NOTE | 2021-03-08 15:33 | Psychiatric Progress Note ---
Date of Service March 08, 2021 Impression / Recommendations Impression 50 yo female with schizoaffective disorder, chronic paranoia/aud garcia at baseline now worsening due to depression and increase in meth use, ongoing ETOH misuse with hx last stay of up to 30 beers a day. 03/08/21--patient denying side effects of antipsychotic. 03/07/21--psychosis improving, mood still remains low. will administer 234 of Invega Sustenna today. 03/06/21--garcia are resolving, unclear if physical complaints are related to cross taper to Invega. (1) Schizoaffective disorder: 03/08/2021--patient with significant low mood in the setting of antipsychotic administration. Antidepressant augmentation was discussed, patient will consider and will further discuss tomorrow. 03/06/21--Klonopin taper and d/c over next 3 doses as appears more sedated as further through withdrawal. If tolerates Invega may receive first injection as early as tomorrow. 03/05/21--continue cross taper to Invega. Risperdal 0.5 mg this hs then d/c in favor of Invega 6 mg po qam. 03/04/21--Risks/benefits/alternatives reviewed re: conversion to Invega as trial given availability of monthly KIRBY. Invega sustenna is covered by her insurance per nursing. 03/03/21--continue Risperdal 1 mg BID with prn. As patient is having ongoing anxiety related to garcia and withdrawing from meth will offer short term use of benzodiazepine. Risks/benefits/alternatives reviewed and she is aware this medication is for short term use only while monitored in hospital and will not be prescribed at discharge. Patient agreed to Klonopin 0.5 mg BID. 03/02/21 The patient was admitted to the [facility] ([facility]) on q15 min checks (behavioral with suicide precautions) for safety. The patient will participate in group, recreational, and milieu therapies and will be offered additional individual and family sessions as clinically appropriate. Risks/benefits/alternatives were reviewed re: antipsychotics for mood and/or psychosis. Discussion included but was not limited to metabolic side effects, risks of TD and suicidal thoughts. There were no abnormal motor movements at baseline. Fasting glucose and lipid panel ordered for baseline monitoring. She agreed to continue Risperdal prn and add BID dosing for now while considers Invega trial as monthly KIRBY. (2) Polysubstance (excluding opioids) dependence: 03/04/21--d/c AWSS, patient continues to refuse rehab. 03/03/21--only scored 1 last night on AWSS for subjective anxiety. 03/02/21 AWSS protocol with Ativan prn as risk of withdrawal, will not neurontin load as on some standing/restarting and current use is sporadic and less likely to cause ETOH withdrawal. The patient's AUDIT score suggests problematic drinking (Zone III WHO) and meth use is particularly problematic given her hx of aud garcia. Brief intervention was offered and accepted. Intervention was greater than 5 min in length and included assessing readiness to quit, advice on how to reduce or abstain from alcohol and other substances, and to set a specific goal for this hospitalization. insulation worker furnace installer will also assist in anticipating barriers to sobriety and in problem-solving for solutions to those problems while arranging for referral to appropriate treatment. The patient is in contemplation stage with regards to transtheoretical model of change as wants help to get back on psych meds but is ambivalent around rehab. The patient is advised to abstain from ETOH and meth, and other substances due to depressant effects and risk of interaction with prescription medications and psychosis. The patient will be provided with recovery materials to continue to educate self on how to cope with their condition without drinking. (3) Chest pain: 03/06/21--resolved, consistent with anxiety and avoidance of group but will monitor. Current subjective dizziness. 03/05/21--likely anxiety but did not want to ignore given hx of CAD. CXR and EKG ordered. No ST elevations to suggest ischemia, 1 set of toponins negative. Pain resolved as I was discussing possible consult with hospitalist. Moving to the med floor for monitoring would be less therapeutic environment and disrupt the care for her anxiety which appears to be the cause. . Inventory Assets Strengths: housing, relationship Needs: outpatient providers Risk Factors Assessment Male: No : Yes Do You Have Access To A Gun?: No (will confirm) Mental Health Diagnoses: No Substance Use Disorders: Yes Previous Attempt: Yes Previous Psychiatric Hospitalization: Yes Hopelessness: Yes Smoker: Yes Protective Factors Assessment : No Responsible for Young Children: Yes Employed: No Supportive Family: Yes Good Rapport with Provider: No Interval History Chief Complaint "I was worried all day and then he hung up on me". Review of Systems Sleep Information Total Hours of Sleep: 8 Meal Information Percent Meal Consumed - Breakfast: 100 Percent Meal Consumed - Lunch: 100 Percent Meal Consumed - Dinner: 100 Nutrition Comment: per meal record Subjective Subjective Patient was seen & assessed and interval progress reviewed with treatment team nursing and social work Patient seen sleeping most of the day. Attends groups minimally. Does eat her meals without issue. She is currently denying any side effects of the med ication none observed or reported. Patient's mood does seem quite low. She is often tearful and spends many hours in her room. The possibility of antidepressant augmentation was discussed and will be further discussed tomorrow. Physical Exam Psychiatric Orientation: alert Apperance: appropriately groomed and + disheveled Eye Contact: + fair eye contact and + poor eye contact Motor Behavior: no abnormal motor movements Speech: normal rate/rhythm/volume of speech Affect: + depressed affect Mood: + depressed mood and + anxious mood Thought Process: + circumstantial thought process and + concrete thought process Thought Content: + preoccupation, + paranoid, + delusions and + persecution Suicidal Thoughts: denies suicidal thoughts Homicidal Thoughts: denies homicidal thoughts Hallucinations: no auditory hallucinations and no visual hallucinations Cognition: language grossly intact; + attention not intact Estimated Intelligence: consistent with education level Insight: + poor insight Judgement: + poor judgement Vital Signs (Past 24 Hours) Last Vital Signs Temp 36.5 C 03/08/21 06:00 Pulse 95 H 03/08/21 06:32 Resp 16 03/08/21 06:00 BP 123/74 03/08/21 06:32 Pulse Ox 95 03/04/21 21:30 Respiratory Auscultation: + diminished lung sounds (bases bilaterally but poor inspiratory effort) Cardiovascular Rate/Rhythm: regular rate Heart Sounds: normal S1 and normal S2 Results & Data ([facility]) Current Inpatient Medications Current Inpatient Medications: Current Inpatient Medications Acetaminophen (Acetaminophen 325 Mg Tab) 650 mg PO Q4H PRN PRN Reason: Headache or Minor Fever Stop: 03/31/21 18:19 Al Hydrox/Mg Hydrox/Simethicone (Aluminum/Magnesium Susp 30 Ml Udc) 30 ml PO Q4H PRN PRN Reason: GI Upset Stop: 03/31/21 18:19 Last Admin: 03/05/21 10:04 Dose: 30 ml Documented by: Aspirin (Aspirin 81 Mg Ectab) 81 mg PO DAILY [facility] Stop: 04/01/21 10:14 Last Admin: 03/08/21 08:31 Dose: 81 mg Documented by: Atorvastatin Calcium (Atorvastatin 40 Mg Tab) 80 mg PO QPM [facility] Stop: 04/01/21 20:59 Last Admin: 03/07/21 21:21 Dose: 80 mg Documented by: Benztropine Mesylate (Benztropine Mesylate 0.5 Mg Tab) 0.5 mg PO Q6 PRN PRN Reason: Muscle Spasm Stop: 04/01/21 09:51 Bismuth Subsalicylate (Bismuth Subsalicylate Liqd 236 Ml) 15 ml PO PRN PRN PRN Reason: Loose Stool Stop: 03/31/21 18:19 Clopidogrel Bisulfate (Clopidogrel Bisulfate 75 Mg Tab) 75 mg PO QAM [facility] Stop: 04/01/21 10:14 Last Admin: 03/08/21 08:32 Dose: 75 mg Documented by: Folic Acid (Folic Acid 1 Mg Tab) 1 mg PO QAM [facility] Stop: 04/01/21 09:59 Last Admin: 03/08/21 08:30 Dose: 1 mg Documented by: Gabapentin (Gabapentin 100 Mg Cap) 200 mg PO HS [facility] Stop: 04/01/21 21:59 Last Admin: 03/07/21 21:21 Dose: 200 mg Documented by: Hydroxyzine HCl (Hydroxyzine Hcl 25 Mg Tab) 50 mg PO HSZ PRN PRN Reason: Insomnia Stop: 03/31/21 18:19 Last Admin: 03/07/21 21:21 Dose: 50 mg Documented by: Hydroxyzine HCl (Hydroxyzine Hcl 25 Mg Tab) 25 mg PO Q4H PRN PRN Reason: Anxiety Stop: 03/31/21 18:19 Last Admin: 03/02/21 18:58 Dose: 25 mg Documented by: Levothyroxine Sodium (Levothyroxine Sodium 25 Mcg Tablet) 25 mcg PO DAILYBB [facility] Stop: 04/02/21 07:59 Last Admin: 03/08/21 08:32 Dose: 25 mcg Documented by: Magnesium Hydroxide (Magnesium Hydroxide Susp 30 Ml Udc) 30 ml PO DAILY PRN PRN Reason: Constipation Stop: 03/31/21 18:19 Last Admin: 03/06/21 19:14 Dose: 30 ml Documented by: Metoprolol Succinate (Metoprolol Succ 25mg Ext Rel Tab) 25 mg PO DAILY [facility] Stop: 04/01/21 10:14 Last Admin: 03/08/21 08:32 Dose: 25 mg Documented by: Miscellaneous (Remove Nicoderm Patch) 1 ea N/A DAILY@0859 [facility] Stop: 04/01/21 08:58 Last Admin: 03/08/21 08:33 Dose: Not Given Documented by: Multivitamins/Minerals (Cerovite Adv Formula Tab) [facility] Stop: 04/01/21 10:14 Last Admin: 03/08/21 08:32 Dose: 1 tab Documented by: Nicotine (Nicotine 21 Mg/24 Hr Tdsy) 21 mg TD QAM [facility] Stop: 03/31/21 21:59 Last Admin: 03/08/21 09:50 Dose: 21 mg Documented by: Nicotine Polacrilex (Nicotine Polacrilex 2 Mg Gum) 1 piece MT PRN PRN PRN Reason: cravings Stop: 03/31/21 21:50 Paliperidone (Paliperidone 3 Mg Tabcr) 6 mg PO [facility] Stop: 04/05/21 08:59 Last Admin: 03/08/21 08:29 Dose: 6 mg Documented by: Pantoprazole Sodium (Pantoprazole 40 Mg Tab) 40 mg PO QAM [facility] Stop: 04/01/21 10:14 Last Admin: 03/08/21 08:30 Dose: 40 mg Documented by: Risperidone (Risperidone 1 Mg Tablet) 1 mg PO Q6 PRN PRN Reason: psychosis Stop: 03/31/21 18:28 Last Admin: 03/07/21 21:22 Dose: 1 mg Documented by: Sodium Chloride (Sodium Chloride 0.65% Na Soln 45 Ml ([place])) 1 - 2 sprays NA PRN PRN PRN Reason: Nasal Dryness/Congestion Stop: 03/31/21 18:19 Thiamine HCl (Thiamine Hcl 50 Mg Tablet) 50 mg PO QAM [facility] Stop: 04/01/21 10:14 Last Admin: 03/08/21 08:30 Dose: 50 mg Documented by: Vitamin D (Cholecalciferol 1,000 Units 25 Mcg Tab) 5,000 units PO DAILY [facility] Stop: 04/02/21 08:59 Last Admin: 03/08/21 08:31 Dose: 5,000 units Documented by: Mental Health & Subst Abuse Tx Psychiatrist Name of Psychiatrist: Artem Cordero (probably [place] instead) Psychiatrist's Psychiatric Appointment Comment: Will be scheduled after your intake Therapist Name of Therapist: Artem Marmolejo Therapist's Date of Therapist Appointment: 03/13/21 Time of Therapist Appointment: 8:30 a.m. (In person) Therapy Appointment Comment: [address], [address], [place] Post Discharge Appointments Primary Care Physician Name Of Family Doctor: Dr. Self- [facility] [place] Primary Care Date of Appointment with PCP: 03/12/21 Time of Appointment with PCP: 2:15 pm Provider Appointment Comment: [address] [place] [address] (1) Schizoaffective disorder Schizoaffective disorder type: depressive Qualified Code(s): F25.1 - Schizoaffective disorder, depressive type
[2021-03-08] MEDS: hydrOXYzine HCl 25 MG TAB PO PRN (15:42)
[2021-03-08] MEDS: ACETAMINOPHEN 325 MG TAB PO PRN (18:58)
[2021-03-08] MEDS: GABAPENTIN 100 MG CAP PO SCH (20:38)
[2021-03-08] MEDS: ATORVASTATIN 40 MG TAB PO SCH (20:38)
[2021-03-09] MEDS: LEVOTHYROXINE SODIUM 25 MCG TABLET PO SCH (08:16)
[2021-03-09] MEDS: FOLIC ACID 1 MG TAB PO SCH (08:33)
[2021-03-09] MEDS: CHOLECALCIFEROL 1,000 UNITS 25 MCG TAB PO SCH (08:33)
[2021-03-09] MEDS: NICOTINE 21 MG/24 HR TDSY TD SCH (08:33)
[2021-03-09] MEDS: METOPROLOL SUCC 25MG EXT REL TAB PO SCH (08:33)
[2021-03-09] MEDS: ASPIRIN 81 MG ECTAB PO SCH (08:33)
[2021-03-09] MEDS: CEROVITE ADV FORMULA TAB PO SCH (08:33)
[2021-03-09] MEDS: CLOPIDOGREL BISULFATE 75 MG TAB PO SCH (08:33)
[2021-03-09] MEDS: PALIPERIDONE 3 MG TABCR PO SCH (08:34)
[2021-03-09] MEDS: THIAMINE HCL 50 MG TABLET PO SCH (08:34)
[2021-03-09] MEDS: PANTOprazole 40 MG TAB PO SCH (08:34)
[2021-03-09] MEDS: ACETAMINOPHEN 325 MG TAB PO PRN (09:19)
[2021-03-09] MEDS ORDERED: IBUPROFEN 600 MG TAB PO PRN (09:27)
[2021-03-09] MEDS: BENZOCAINE 20% (ORAJEL) 11.9 GM TUBE MT PRN ×3 (10:19→21:36)
--- NOTE | 2021-03-09 11:55 | Psychiatric Progress Note ---
Date of Service March 09, 2021 Impression / Recommendations Impression 50 yo female with schizoaffective disorder, chronic paranoia/aud garcia at baseline now worsening due to depression and increase in meth use, ongoing ETOH misuse with hx last stay of up to 30 beers a day. 03/08/21--patient denying side effects of antipsychotic. 03/07/21--psychosis improving, mood still remains low. will administer 234 of Invega Sustenna today. 03/06/21--garcia are resolving, unclear if physical complaints are related to cross taper to Invega. (1) Schizoaffective disorder: 1patient tolerating antipsychotic administration well. Will discontinue oral antipsychotic. Mood seems to be improving nicely 03/08/2021--patient with significant low mood in the setting of antipsychotic administration. Antidepressant augmentation was discussed, patient will consider and will further discuss tomorrow. 03/06/21--Klonopin taper and d/c over next 3 doses as appears more sedated as further through withdrawal. If tolerates Invega may receive first injection as early as tomorrow. 03/05/21--continue cross taper to Invega. Risperdal 0.5 mg this hs then d/c in favor of Invega 6 mg po qam. 03/04/21--Risks/benefits/alternatives reviewed re: conversion to Invega as trial given availability of monthly KIRBY. Invega sustenna is covered by her insurance per nursing. 03/03/21--continue Risperdal 1 mg BID with prn. As patient is having ongoing anxiety related to garcia and withdrawing from meth will offer short term use of benzodiazepine. Risks/benefits/alternatives reviewed and she is aware this medication is for short term use only while monitored in hospital and will not be prescribed at discharge. Patient agreed to Klonopin 0.5 mg BID. 03/02/21 The patient was [facility]) on q15 min checks (behavioral with suicide precautions) for safety. The patient will participate in group, recreational, and milieu therapies and will be offered additional individual and family sessions as clinically appropriate. Risks/benefits/alternatives were reviewed re: antipsychotics for mood and/or psychosis. Discussion included but was not limited to metabolic side effects, risks of TD and suicidal thoughts. There were no abnormal motor movements at baseline. Fasting glucose and lipid panel ordered for baseline monitoring. She agreed to continue Risperdal prn and add BID dosing for now while considers Inv ega trial as monthly KIRBY. (2) Polysubstance (excluding opioids) dependence: 03/04/21--d/c AWSS, patient continues to refuse rehab. 03/03/21--only scored 1 last night on AWSS for subjective anxiety. 03/02/21 AWSS protocol with Ativan prn as risk of withdrawal, will not neurontin load as on some standing/restarting and current use is sporadic and less likely to cause ETOH withdrawal. The patient's AUDIT score suggests problematic drinking ([place] WHO) and meth use is particularly problematic given her hx of aud garcia. Brief intervention was offered and accepted. Intervention was greater than 5 min in length and included assessing readiness to quit, advice on how to reduce or abstain from alcohol and other substances, and to set a specific goal for this hospitalization. 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 The patient is in contemplation stage with regards to transtheoretical model of change as wants help to get back on psych meds but is ambivalent around rehab. The patient is advised to abstain from ETOH and meth, and other substances due to depressant effects and risk of interaction with prescription medications and psychosis. The patient will be provided with recovery materials to continue to educate self on how to cope with their condition without drinking. (3) Chest pain: 03/06/21--resolved, consistent with anxiety and avoidance of group but will monitor. Current subjective dizziness. 03/05/21--likely anxiety but did not want to ignore given hx of CAD. CXR and EKG ordered. No ST elevations to suggest ischemia, 1 set of toponins negative. Pain resolved as I was discussing possible consult with hospitalist. Moving to the med floor for monitoring would be less therapeutic environment and disrupt the care for her anxiety which appears to be the cause. . Inventory Assets Strengths: housing, relationship Needs: outpatient providers Risk Factors Assessment Male: No : Yes Do You Have Access To A Gun?: No (will confirm) Mental Health Diagnoses: No Substance Use Disorders: Yes Previous Attempt: Yes Previous Psychiatric Hospitalization: Yes Hopelessness: Yes Smoker: Yes Protective Factors Assessment : No Responsible for Young Children: Yes Employed: No Supportive Family: Yes Good Rapport with Provider: No Interval History Chief Complaint "I am feeling better than yesterday thank you". Review of Systems Sleep Information Total Hours of Sleep: 7.5 Meal Information Percent Meal Consumed - Breakfast: 100 Percent Meal Consumed - Lunch: 100 Percent Meal Consumed - Dinner: 100 Nutrition Comment: per meal record Subjective Subjective Patient was seen & assessed and interval progress reviewed with treatment team nursing and social work Patient seen today sleeping in her room. Patient was easily awoken and agreeable to speak. Patient endorses a good night of sleep as well as a strong appetite. Denies any audio hallucinations last night. Attributes this to the medication. Patient was also spoken to regarding her drug habits and for the likely possibility for them to worsen psychiatric symptoms including energy levels, hallucinations. Furthermore they were discussed as having a negative impact on her body as outlined by her poor dentition. Patient reports relief of tooth pain with Orajel. Physical Exam Psychiatric Orientation: alert Apperance: appropriately groomed and + disheveled Eye Contact: + fair eye contact and + poor eye contact Motor Behavior: no abnormal motor movements Speech: normal rate/rhythm/volume of speech Affect: + depressed affect Mood: + depressed mood and + anxious mood Thought Process: + circumstantial thought process and + concrete thought process Thought Content: + preoccupation, + paranoid, + delusions and + persecution Suicidal Thoughts: denies suicidal thoughts Homicidal Thoughts: denies homicidal thoughts Hallucinations: no auditory hallucinations and no visual hallucinations Cognition: language grossly intact; + attention not intact Estimated Intelligence: consistent with education level Insight: + poor insight Judgement: + poor judgement Vital Signs (Past 24 Hours) Last Vital Signs Temp 36.5 C 03/09/21 06:00 Pulse 87 03/09/21 06:20 Resp 16 03/09/21 06:00 BP 121/79 03/09/21 06:20 Pulse Ox 95 03/04/21 21:30 Respiratory Auscultation: + diminished lung sounds (bases bilaterally but poor inspiratory effort) Cardiovascular Rate/Rhythm: regular rate Heart Sounds: normal S1 and normal S2 Results & Data ([facility]) Current Inpatient Medications Current Inpatient Medications: Current Inpatient Medications Acetaminophen (Acetaminophen 325 Mg Tab) 650 mg PO Q4H PRN PRN Reason: Headache or Minor Fever Stop: 03/31/21 18:19 Last Admin: 03/09/21 09:19 Dose: 650 mg Documented by: Al Hydrox/Mg Hydrox/Simethicone (Aluminum/Magnesium Susp 30 Ml Udc) 30 ml PO Q4H PRN PRN Reason: GI Upset Stop: 03/31/21 18:19 Last Admin: 03/05/21 10:04 Dose: 30 ml Documented by: Aspirin (Aspirin 81 Mg Ectab) 81 mg PO DAILY NILSON Stop: 04/01/21 10:14 Last Admin: 03/09/21 08:33 Dose: 81 mg Documented by: Atorvastatin Calcium (Atorvastatin 40 Mg Tab) 80 mg PO QPM NILSON Stop: 04/01/21 20:59 Last Admin: 03/08/21 20:38 Dose: 80 mg Documented by: Benzocaine (Benzocaine 20% (Orajel) 11.9 Gm Tube) 1 appln MT QID PRN PRN Reason: tooth pain Stop: 04/08/21 09:27 Last Admin: 03/09/21 10:19 Dose: 1 appln Documented by: Benztropine Mesylate (Benztropine Mesylate 0.5 Mg Tab) 0.5 mg PO Q6 PRN PRN Reason: Muscle Spasm Stop: 04/01/21 09:51 Bismuth Subsalicylate (Bismuth Subsalicylate Liqd 236 Ml) 15 ml PO PRN PRN PRN Reason: Loose Stool Stop: 03/31/21 18:19 Clopidogrel Bisulfate (Clopidogrel Bisulfate 75 Mg Tab) 75 mg PO QAM NILSON Stop: 04/01/21 10:14 Last Admin: 03/09/21 08:33 Dose: 75 mg Documented by: Folic Acid (Folic Acid 1 Mg Tab) 1 mg PO QAM NILSON Stop: 04/01/21 09:59 Last Admin: 03/09/21 08:33 Dose: 1 mg Documented by: Gabapentin (Gabapentin 100 Mg Cap) 200 mg PO HS NILSON Stop: 04/01/21 21:59 Last Admin: 03/08/21 20:38 Dose: 200 mg Documented by: Hydroxyzine HCl (Hydroxyzine Hcl 25 Mg Tab) 50 mg PO HSZ PRN PRN Reason: Insomnia Stop: 03/31/21 18:19 Last Admin: 03/07/21 21:21 Dose: 50 mg Documented by: Hydroxyzine HCl (Hydroxyzine Hcl 25 Mg Tab) 25 mg PO Q4H PRN PRN Reason: Anxiety Stop: 03/31/21 18:19 Last Admin: 03/08/21 15:42 Dose: 25 mg Documented by: Ibuprofen (Ibuprofen 600 Mg Tab) 600 mg PO Q6H PRN PRN Reason: Pain or Fever Stop: 04/08/21 09:26 Levothyroxine Sodium (Levothyroxine Sodium 25 Mcg Tablet) 25 mcg PO DAILYBB [facility] Stop: 04/02/21 07:59 Last Admin: 03/09/21 08:16 Dose: 25 mcg Documented by: Magnesium Hydroxide (Magnesium Hydroxide Susp 30 Ml Udc) 30 ml PO DAILY PRN PRN Reason: Constipation Stop: 03/31/21 18:19 Last Admin: 03/06/21 19:14 Dose: 30 ml Documented by: Metoprolol Succinate (Metoprolol Succ 25mg Ext Rel Tab) 25 mg PO DAILY [facility] Stop: 04/01/21 10:14 Last Admin: 03/09/21 08:33 Dose: 25 mg Documented by: Miscellaneous (Remove Nicoderm Patch) 1 ea N/A DAILY@[id number] [facility] Stop: 04/01/21 08:58 Last Admin: 03/09/21 09:06 Dose: 1 ea Documented by: Multivitamins/Minerals (Cerovite Adv Formula Tab) 1 tab PO QAM [facility] Stop: 04/01/21 10:14 Last Admin: 03/09/21 08:33 Dose: 1 tab Documented by: Nicotine (Nicotine 21 Mg/24 Hr Tdsy) 21 mg TD QAM [facility] Stop: 03/31/21 21:59 Last Admin: 03/09/21 08:33 Dose: 21 mg Documented by: Nicotine Polacrilex (Nicotine Polacrilex 2 Mg Gum) 1 piece MT PRN PRN PRN Reason: cravings Stop: 03/31/21 21:50 Paliperidone (Paliperidone 3 Mg Tabcr) 6 mg PO QAM [facility] Stop: 04/05/21 08:59 Last Admin: 03/09/21 08:34 Dose: 6 mg Documented by: Pantoprazole Sodium (Pantoprazole 40 Mg Tab) 40 mg PO QAM [facility] Stop: 04/01/21 10:14 Last Admin: 03/09/21 08:34 Dose: 40 mg Documented by: Risperidone (Risperidone 1 Mg Tablet) 1 mg PO Q6 PRN PRN Reason: psychosis Stop: 03/31/21 18:28 Last Admin: 03/07/21 21:22 Dose: 1 mg Documented by: Sodium Chloride (Sodium Chloride 0.65% Na Soln 45 Ml ([place])) 1 - 2 sprays NA PRN PRN PRN Reason: Nasal Dryness/Congestion Stop: 03/31/21 18:19 Thiamine HCl (Thiamine Hcl 50 Mg Tablet) 50 mg PO QAM NILSON Stop: 04/01/21 10:14 Last Admin: 03/09/21 08:34 Dose: 50 mg Documented by: Vitamin D (Cholecalciferol 1,000 Units 25 Mcg Tab) 5,000 units PO DAILY NILSON Stop: 04/02/21 08:59 Last Admin: 03/09/21 08:33 Dose: 5,000 units Documented by: Mental Health & Subst Abuse Tx Psychiatrist Name of Psychiatrist: [facility] (probably [facility] instead) Psychiatrist's Psychiatric Appointment Comment: Will be scheduled after your intake Therapist Name of Therapist: [facility] Therapist's Date of Therapist Appointment: 03/13/21 Time of Therapist Appointment: 8:30 a.m. (In person) Therapy Appointment Comment: [address] [facility], [address], [place] Post Discharge Appointments Primary Care Physician Name Of Family Doctor: Dr. Conner [facility] Primary Care Date of Appointment with PCP: 03/12/21 Time of Appointment with PCP: 2:15 pm Provider Appointment Comment: [address] [place] [address] Other #1: Name of Aftercare Appointment: [facility], appt for long acting injectable Phone Number of Aftercare Appointment: [phone] Date of Aftercare Appointment: 04/10/21 Time of Aftercare Appointment: 10am Aftercare Appointment Comment: & June 18 1:30 with Svetlana Reaves on wait list for earlier appt #2: Name of Aftercare Appointment: [facility] Phone Number of Aftercare Appointment: [phone] Aftercare Appointment Comment: call to schedule for needed appointments at least 3 days in advance (1) Schizoaffective disorder Schizoaffective disorder type: depressive Qualified Code(s): F25.1 - Schizoaffective disorder, depressive type
[2021-03-09] MEDS: GABAPENTIN 100 MG CAP PO SCH (21:32)
[2021-03-09] MEDS: ATORVASTATIN 40 MG TAB PO SCH (21:33)
[2021-03-09] MEDS: hydrOXYzine HCl 25 MG TAB PO PRN (21:34)
[2021-03-10] MEDS: LEVOTHYROXINE SODIUM 25 MCG TABLET PO SCH (07:45)
[2021-03-10] MEDS: NICOTINE 21 MG/24 HR TDSY TD SCH (08:44)
[2021-03-10] MEDS: ASPIRIN 81 MG ECTAB PO SCH (08:45)
[2021-03-10] MEDS: CHOLECALCIFEROL 1,000 UNITS 25 MCG TAB PO SCH (08:46)
[2021-03-10] MEDS: CLOPIDOGREL BISULFATE 75 MG TAB PO SCH (08:47)
[2021-03-10] MEDS: FOLIC ACID 1 MG TAB PO SCH (08:48)
[2021-03-10] MEDS: METOPROLOL SUCC 25MG EXT REL TAB PO SCH (08:48)
[2021-03-10] MEDS: CEROVITE ADV FORMULA TAB PO SCH (08:48)
[2021-03-10] MEDS: PANTOprazole 40 MG TAB PO SCH (08:49)
[2021-03-10] MEDS: PALIPERIDONE 3 MG TABCR PO SCH (08:49)
[2021-03-10] MEDS: THIAMINE HCL 50 MG TABLET PO SCH (08:49)
--- NOTE | 2021-03-10 13:07 | Psychiatric Progress Note ---
Date of Service March 10, 2021 Impression / Recommendations Impression 50 yo female with schizoaffective disorder, chronic paranoia/aud garcia at baseline now worsening due to depression and increase in meth use, ongoing ETOH misuse with hx last stay of up to 30 beers a day. 1patient making incremental progress. Mood seems improved. No longer experiencing hallucinations. 03/08/21--patient denying side effects of antipsychotic. 03/07/21--psychosis improving, mood still remains low. will administer 234 of Invega Sustenna today. 03/06/21--garcia are resolving, unclear if physical complaints are related to cross taper to Invega. (1) Schizoaffective disorder: 1patient tolerating antipsychotic administration well. Will discontinue oral antipsychotic. Mood seems to be improving nicely 03/08/2021--patient with significant low mood in the setting of antipsychotic administration. Antidepressant augmentation was discussed, patient will consider and will further discuss tomorrow. 03/06/21--Klonopin taper and d/c over next 3 doses as appears more sedated as further through withdrawal. If tolerates Invega may receive first injection as early as tomorrow. 03/05/21--continue cross taper to Invega. Risperdal 0.5 mg this hs then d/c in favor of Invega 6 mg po qam. 03/04/21--Risks/benefits/alternatives reviewed re: conversion to Invega as trial given availability of monthly KIRBY. Invega sustenna is covered by her insurance per nursing. 03/03/21--continue Risperdal 1 mg BID with prn. As patient is having ongoing anxiety related to garcia and withdrawing from meth will offer short term use of benzodiazepine. Risks/benefits/alternatives reviewed and she is aware this medication is for short term use only while monitored in hospital and will not be prescribed at discharge. Patient agreed to Klonopin 0.5 mg BID. 03/02/21 The patient [facility]) on q15 min checks (behavioral with suicide precautions) for safety. The patient will participate in group, recreational, and milieu therapies and will be offered additional individual and family sessions as clinically appropriate. Risks/benefits/alternatives were reviewed re: antipsychotics for mood and/or psychosis. Discussion included but was not limited to metabolic side effects, risks of TD and suicidal thoughts. There were no abnormal motor movements at baseline. Fasting glucose and lipid panel ordered for baseline monitoring. She agreed to continue Risperdal prn and add BID dosing for now while considers Invega trial as monthly KIRBY. (2) Polysubstance (excluding opioids) dependence: 03/04/21--d/c AWSS, patient continues to refuse rehab. 03/03/21--only scored 1 last night on AWSS for subjective anxiety. 03/02/21 AWSS protocol with Ativan prn as risk of withdrawal, will not neurontin load as on some standing/restarting and current use is sporadic and less likely to cause ETOH withdrawal. The patient's AUDIT score suggests problematic drinking ([place] WHO) and meth use is particularly problematic given her hx of aud garcia. Brief intervention was offered and accepted. Intervention was greater than 5 min in length and included assessing readiness to quit, advice on how to reduce or abstain from alcohol and other substances, and to set a specific goal for this hospitalization. balcony worker will also assist in anticipating barriers to so briety and in problem-solving for solutions to those problems while arranging for referral to appropriate treatment. The patient is in contemplation stage with regards to transtheoretical model of change as wants help to get back on psych meds but is ambivalent around rehab. The patient is advised to abstain from ETOH and meth, and other substances due to depressant effects and risk of interaction with prescription medications and psychosis. The patient will be provided with recovery materials to continue to educate self on how to cope with their condition without drinking. (3) Chest pain: 03/06/21--resolved, consistent with anxiety and avoidance of group but will monitor. Current subjective dizziness. 03/05/21--likely anxiety but did not want to ignore given hx of CAD. CXR and EKG ordered. No ST elevations to suggest ischemia, 1 set of toponins negative. Pain resolved as I was discussing possible consult with hospitalist. Moving to the med floor for monitoring would be less therapeutic environment and disrupt the care for her anxiety which appears to be the cause. . Inventory Assets Strengths: housing, relationship Needs: outpatient providers Risk Factors Assessment Male: No : Yes Do You Have Access To A Gun?: No (will confirm) Mental Health Diagnoses: No Substance Use Disorders: Yes Previous Attempt: Yes Previous Psychiatric Hospitalization: Yes Hopelessness: Yes Smoker: Yes Protective Factors Assessment : No Responsible for Young Children: Yes Employed: No Supportive Family: Yes Good Rapport with Provider: No Interval History Chief Complaint I am feeling good, I think I will be ready to go tomorrow. Review of Systems Sleep Information Total Hours of Sleep: 6 Meal Information Percent Meal Consumed - Breakfast: 100 Percent Meal Consumed - Lunch: 100 Percent Meal Consumed - Dinner: 100 Nutrition Comment: per meal record Subjective Subjective Patient was seen & assessed and interval progress reviewed with treatment team nursing and social work Patient reports strong appetite and a decent sleep last night. Denies any audio or visual hallucinations. Reports that her mood has improved and she feels less depressed than when she initially came. Patient denies any cravings to use meth at this time. She attributes this to her understanding the negative impact that it has played in her life. No side effects of the medication reported or observed. Patient is due for her next shot tomorrow, patient expressed understanding and agreement. Physical Exam Psychiatric Orientation: alert Apperance: appropriately groomed and + disheveled Eye Contact: + fair eye contact and + poor eye contact Motor Behavior: no abnormal motor movements Speech: normal rate/rhythm/volume of speech Affect: + depressed affect Mood: + depressed mood and + anxious mood Thought Process: + circumstantial thought process and + concrete thought process Thought Content: + preoccupation, + paranoid, + delusions and + persecution Suicidal Thoughts: denies suicidal thoughts Homicidal Thoughts: denies homicidal thoughts Hallucinations: no auditory hallucinations and no visual hallucinations Cognition: language grossly intact; + attention not intact Estimated Intelligence: consistent with education level Insight: + poor insight Judgement: + poor judgement Vital Signs (Past 24 Hours) Last Vital Signs Temp 36.7 C 03/10/21 06:41 Pulse 93 H 03/10/21 06:42 Resp 16 03/10/21 06:41 BP 128/85 03/10/21 06:42 Pulse Ox 95 03/04/21 21:30 Respiratory Auscultation: + diminished lung sounds (bases bilaterally but poor inspiratory effort) Cardiovascular Rate/Rhythm: regular rate Heart Sounds: normal S1 and normal S2 Results & Data ([facility]) Current Inpatient Medications Current Inpatient Medications: Current Inpatient Medications Acetaminophen (Acetaminophen 325 Mg Tab) 650 mg PO Q4H PRN PRN Reason: Headache or Minor Fever Stop: 03/31/21 18:19 Last Admin: 03/09/21 09:19 Dose: 650 mg Documented by: Al Hydrox/Mg Hydrox/Simethicone (Aluminum/Magnesium Susp 30 Ml Udc) 30 ml PO Q4H PRN PRN Reason: GI Upset Stop: 03/31/21 18:19 Last Admin: 03/05/21 10:04 Dose: 30 ml Documented by: Aspirin (Aspirin 81 Mg Ectab) 81 mg PO DAILY NILSON Stop: 04/01/21 10:14 Last Admin: 03/10/21 08:45 Dose: 81 mg Documented by: Atorvastatin Calcium (Atorvastatin 40 Mg Tab) 80 mg PO QPM NILSON Stop: 04/01/21 20:59 Last Admin: 03/09/21 21:33 Dose: 80 mg Documented by: Benzocaine (Benzocaine 20% (Orajel) 11.9 Gm Tube) 1 appln MT QID PRN PRN Reason: tooth pain Stop: 04/08/21 09:27 Last Admin: 03/09/21 21:36 Dose: 1 appln Documented by: Benztropine Mesylate (Benztropine Mesylate 0.5 Mg Tab) 0.5 mg PO Q6 PRN PRN Reason: Muscle Spasm Stop: 04/01/21 09:51 Bismuth Subsalicylate (Bismuth Subsalicylate Liqd 236 Ml) 15 ml PO PRN PRN PRN Reason: Loose Stool Stop: 03/31/21 18:19 Clopidogrel Bisulfate (Clopidogrel Bisulfate 75 Mg Tab) 75 mg PO QAM NILSON Stop: 04/01/21 10:14 Last Admin: 03/10/21 08:47 Dose: 75 mg Documented by: Folic Acid (Folic Acid 1 Mg Tab) 1 mg PO QAM NILSON Stop: 04/01/21 09:59 Last Admin: 03/10/21 08:48 Dose: 1 mg Documented by: Gabapentin (Gabapentin 100 Mg Cap) 200 mg PO HS NILSON Stop: 04/01/21 21:59 Last Admin: 03/09/21 21:32 Dose: 200 mg Documented by: Hydroxyzine HCl (Hydroxyzine Hcl 25 Mg Tab) 50 mg PO HSZ PRN PRN Reason: Insomnia Stop: 03/31/21 18:19 Last Admin: 03/09/21 21:34 Dose: 50 mg Documented by: Hydroxyzine HCl (Hydroxyzine Hcl 25 Mg Tab) 25 mg PO Q4H PRN PRN Reason: Anxiety Stop: 03/31/21 18:19 Last Admin: 03/08/21 15:42 Dose: 25 mg Documented by: Ibuprofen (Ibuprofen 600 Mg Tab) 600 mg PO Q6H PRN PRN Reason: Pain or Fever Stop: 04/08/21 09:26 Levothyroxine Sodium (Levothyroxine Sodium 25 Mcg Tablet) 25 mcg PO DAILYBB [facility] Stop: 04/02/21 07:59 Last Admin: 03/10/21 07:45 Dose: 25 mcg Documented by: Magnesium Hydroxide (Magnesium Hydroxide Susp 30 Ml Udc) 30 ml PO DAILY PRN PRN Reason: Constipation Stop: 03/31/21 18:19 Last Admin: 03/06/21 19:14 Dose: 30 ml Documented by: Metoprolol Succinate (Metoprolol Succ 25mg Ext Rel Tab) 25 mg PO DAILY [facility] Stop: 04/01/21 10:14 Last Admin: 03/10/21 08:48 Dose: 25 mg Documented by: Miscellaneous (Remove Nicoderm Patch) 1 ea N/A DAILY@[id number] [facility] Stop: 04/01/21 08:58 Last Admin: 03/10/21 08:54 Dose: 1 ea Documented by: Multivitamins/Minerals (Cerovite Adv Formula Tab) 1 tab PO QAM [facility] Stop: 04/01/21 10:14 Last Admin: 03/10/21 08:48 Dose: 1 tab Documented by: Nicotine (Nicotine 21 Mg/24 Hr Tdsy) 21 mg TD QAM [facility] Stop: 03/31/21 21:59 Last Admin: 03/10/21 08:44 Dose: 21 mg Documented by: Nicotine Polacrilex (Nicotine Polacrilex 2 Mg Gum) 1 piece MT PRN PRN PRN Reason: cravings Stop: 03/31/21 21:50 Pantoprazole Sodium (Pantoprazole 40 Mg Tab) 40 mg PO QAM [facility] Stop: 04/01/21 10:14 Last Admin: 03/10/21 08:49 Dose: 40 mg Documented by: Risperidone (Risperidone 1 Mg Tablet) 1 mg PO Q6 PRN PRN Reason: psychosis Stop: 03/31/21 18:28 Last Admin: 03/07/21 21:22 Dose: 1 mg Documented by: Sodium Chloride (Sodium Chloride 0.65% Na Soln 45 Ml ([place])) 1 - 2 sprays NA PRN PRN PRN Reason: Nasal Dryness/Congestion Stop: 03/31/21 18:19 Thiamine HCl (Thiamine Hcl 50 Mg Tablet) 50 mg PO QAM NILSON Stop: 04/01/21 10:14 Last Admin: 03/10/21 08:49 Dose: 50 mg Documented by: Vitamin D (Cholecalciferol 1,000 Units 25 Mcg Tab) 5,000 units PO DAILY NILSON Stop: 04/02/21 08:59 Last Admin: 03/10/21 08:46 Dose: 5,000 units Documented by: Mental Health & Subst Abuse Tx Psychiatrist Name of Psychiatrist: Mike Lott Psychiatrist's Date of Appointment with Psychiatrist: 04/02/21 Time of Appointment with Psychiatrist: 10:30 AM Psychiatric Appointment Comment: [address] [place] [address], [place] [address] Therapist Name of Therapist: Artem Marmolejo Therapist's Date of Therapist Appointment: 03/13/21 Time of Therapist Appointment: 8:30 a.m. (In person) Therapy Appointment Comment: [address] [facility], [address] Post Discharge Appointments Primary Care Physician Name Of Family Doctor: Dr. Conner [facility] Primary Care Date of Appointment with PCP: 03/12/21 Time of Appointment with PCP: 2:15 pm Provider Appointment Comment: [place] [address] Other #1: Name of Aftercare Appointment: Slava Lifefantasma, appt for long acting injectable Phone Number of Aftercare Appointment: [phone] Date of Aftercare Appointment: 04/10/21 Time of Aftercare Appointment: 10 am Aftercare Appointment Comment: & June 18 1:30 with Svetlana Reaves on wait list for earlier appt #2: Name of Aftercare Appointment: [facility] Phone Number of Aftercare Appointment: [phone] Aftercare Appointment Comment: call to schedule for needed appointments at least 3 days in advance Contact Information Discharge Discharge Address: [place] [address] (1) Schizoaffective disorder Schizoaffective disorder type: depressive Qualified Code(s): F25.1 - Schizoaffective disorder, depressive type
[2021-03-10] MEDS: GABAPENTIN 100 MG CAP PO SCH (20:31)
[2021-03-10] MEDS: ATORVASTATIN 40 MG TAB PO SCH (20:32)
[2021-03-10] MEDS: hydrOXYzine HCl 25 MG TAB PO PRN (23:00)
[2021-03-11] MEDS ORDERED: PALIPERIDONE PALMITATE 156 MG/ML SYR IM ONE (08:00)
[2021-03-11] MEDS: FOLIC ACID 1 MG TAB PO SCH (08:20)
[2021-03-11] MEDS: METOPROLOL SUCC 25MG EXT REL TAB PO SCH (08:20)
[2021-03-11] MEDS: ASPIRIN 81 MG ECTAB PO SCH (08:20)
[2021-03-11] MEDS: CLOPIDOGREL BISULFATE 75 MG TAB PO SCH (08:20)
[2021-03-11] MEDS: CEROVITE ADV FORMULA TAB PO SCH (08:20)
[2021-03-11] MEDS: LEVOTHYROXINE SODIUM 25 MCG TABLET PO SCH (08:20)
[2021-03-11] MEDS: CHOLECALCIFEROL 1,000 UNITS 25 MCG TAB PO SCH (08:20)
[2021-03-11] MEDS: PANTOprazole 40 MG TAB PO SCH (08:21)
[2021-03-11] MEDS: NICOTINE 21 MG/24 HR TDSY TD SCH (08:21)
[2021-03-11] MEDS: THIAMINE HCL 50 MG TABLET PO SCH (08:21)
--- NOTE | 2021-03-11 10:12 | Discharge Summary ---
Date of Service March 11, 2021 History of Present Illness Matilda has a previous admission to our unit in 2019 for similar presentation though at that time she had taken and OD of trazodone and Vistaril. She states that she was maintaining her depression "pretty OK" until she was no longer able to see Dr. Nuñez and relapsed on ETOH and meth around the same time. She relates this led to her missing meds and appointments and although she has been able to cut back again on her alcohol intake to 3-40oz beers a day she is using meth daily, sometimes more than once. Due to the combination of her drug use and depression she is not attending to self-care, "I just want to ", like "if I don't wake up it would be a relief". Her sleep and appetite are disrupted. She cannot focus or enjoy things and doesn't even like the way meth makes her feel. She denies recent withdrawal symptoms but is here to "get my head right." She is not attending group on the unit this am as distressed that called her boyfriend Sukumar to check on him and he didn't seed cone picker and the auditory garcia tell her that they are getting him. She denies visual garcia or recent elizabeth. Physical Exam Psychiatric Orientation: alert Apperance: appropriately groomed and + disheveled Eye Contact: + fair eye contact and + poor eye contact Motor Behavior: no abnormal motor movements Speech: normal rate/rhythm/volume of speech Affect: + depressed affect Mood: + depressed mood and + anxious mood Thought Process: + circumstantial thought process and + concrete thought process Thought Content: + preoccupation, + paranoid, + delusions and + persecution Suicidal Thoughts: denies suicidal thoughts Homicidal Thoughts: denies homicidal thoughts Hallucinations: no auditory hallucinations and no visual hallucinations Cognition: language grossly intact; + attention not intact Estimated Intelligence: consistent with education level Insight: + poor insight Judgement: + poor judgement Vital Signs (Past 24 Hours) Last Vital Signs Temp 36.7 C 03/11/21 08:05 Pulse 90 03/11/21 08:05 Resp 16 03/11/21 08:05 BP 118/79 03/11/21 08:05 Pulse Ox 95 03/11/21 08:05 Respiratory Auscultation: + diminished lung sounds (bases bilaterally but poor inspiratory effort) Cardiovascular Rate/Rhythm: regular rate Heart Sounds: normal S1 and normal S2 Principal Diagnosis schizoaffective disorder Psychiatric Data See daily stay summary. In short, safety was maintained, and the patient was cooperative with care. Medication changes included Starting Invega KIRBY and discontinuing venlafaxine and they tolerated this well. Safety plan was completed prior to discharge. Day of Discharge Assessment Today the patient voices readiness for discharge. They note improvement in mood and deny thoughts to harm self or others. Thoughts remain organized and they are improved from admission. There is no evidence of psychosis. They agree to take medications as prescribed and keep follow-up appointments. They are stable for discharge to outpatient level of care. Transition of Care Transition Of Care Record: was reviewed with the patient Advance Directives Advance Directives Information Provided: Yes Advance Directives: No Mental Health Advance Directive: No Advance Directives on File: No Living Will: No Power of Wine Master: No Advance Directives Reason:: Declines as Mental Health Visit. Risk Factors Assessment Male: No : Yes Do You Have Access To A Gun?: No (will confirm) Mental Health Diagnoses: No Substance Use Disorders: Yes Previous Attempt: Yes Previous Psychiatric Hospitalization: Yes Hopelessness: Yes Smoker: Yes Protective Factors Assessment : No Responsible for Young Children: Yes Employed: No Supportive Family: Yes Good Rapport with Provider: No Tobacco Cessation at Discharge Tobacco Cessation Medication Prescribed at Discharge: Offered & Prescribed Total Time Total Time Spent: Greater Than 30 Minutes Total Time Includes: Examination of the patient, Discharge Planning and Medication Reconciliation Discharge Data Lab Results 03/01/21 03/01/21 03/01/21 12:29 12:29 12:29 WBC 7.12 RBC 5.56 H Hgb 16.4 H Hct 46.7 MCV 84.0 MCH 29.5 MCHC 35.1 RDW Std Deviation 46.6 H RDW Coeff of Brooke 15.1 H Plt Count 339 MPV 11.9 H Immature Gran % (Auto) 0.1 Neut % (Auto) 65.4 Lymph % (Auto) 24.7 [place] % (Auto) 8.8 Eos % (Auto) 0.4 Baso % (Auto) 0.6 Neut # (Auto) 4.65 Lymph # (Auto) 1.76 [place] # (Auto) 0.63 H Eos # (Auto) 0.03 Baso # (Auto) 0.04 Immature Gran # (Auto) 0.01 Sodium 140 Potassium 3.6 Chloride 106 Carbon Dioxide 26 Anion Gap 8.0 BUN 8 Creatinine 0.70 Est Cr Clr Drug Dosing 111.9 Est GFR ( Amer) 117.1 Est GFR (Non-Af Amer) 101.0 BUN/Creatinine Ratio 10.9 Glucose 107 H Fasting Glucose Calcium 9.3 Total Bilirubin 0.8 AST 26 ALT 32 Alkaline Phosphatase 120 H Troponin I Total Protein 7.4 Albumin 3.6 Globulin 3.8 Albumin/Globulin Ratio 0.9 Triglycerides Cholesterol LDL Cholesterol, Calc VLDL Cholesterol, Calc HDL Cholesterol Cholesterol/HDL Ratio TSH 3.840 Urine Color Urine Appearance Urine pH Ur Specific [place] Urine Protein Urine Glucose (UA) Urine Ketones Urine Blood Urine Nitrite Urine Bilirubin Urine Urobilinogen Ur Leukocyte Esterase Urine WBC (Auto) Urine RBC (Auto) U Hyaline Cast (Auto) U Epithel Cells (Auto) Urine Bacteria (Auto) Urine Mucus Urine Test Salicylates 3.3 Urine Opiates Screen Ur Methadone, Qual Acetaminophen < 2 L Urine Barbiturates Ur Phencyclidine (PCP) U Amphetamines Confirm U Amphetamin/Meth Scrn U Methamphetamin Confrm Urine MDEA MDMA (Ecstasy) Screen MDMA Urine MDMA U Benzodiazepines Scrn Ur Cocaine Metabolite U Marijuana (THC) Screen Drug Screen Comment Ethyl Alcohol mg/dL COVID-19 Eval Order SARS-CoV-2, RNA, NAAT 03/01/21 03/01/21 03/01/21 12:29 12:49 12:49 WBC RBC Hgb Hct MCV MCH MCHC RDW Std Deviation RDW Coeff of Brooke Plt Count MPV Immature Gran % (Auto) Neut % (Auto) Lymph % (Auto) [place] % (Auto) Eos % (Auto) Baso % (Auto) Neut # (Auto) Lymph # (Auto) [place] # (Auto) Eos # (Auto) Baso # (Auto) Immature Gran # (Auto) Sodium Potassium Chloride Carbon Dioxide Anion Gap BUN Creatinine Est Cr Clr Drug Dosing Est GFR ( Amer) Est GFR (Non-Af Amer) BUN/Creatinine Ratio Glucose Fasting Glucose Calcium Total Bilirubin AST ALT Alkaline Phosphatase Troponin I Total Protein Albumin Globulin Albumin/Globulin Ratio Triglycerides Cholesterol LDL Cholesterol, Calc VLDL Cholesterol, Calc HDL Cholesterol Cholesterol/HDL Ratio TSH Urine Color Dark Yellow Urine Appearance Turbid A Urine pH 5.5 Ur Specific [place] 1.023 Urine Protein Trace H Urine Glucose (UA) Negative Urine Ketones 1+ H Urine Blood Negative Urine Nitrite Negative Urine Bilirubin 1+ H Urine Urobilinogen Negative Ur Leukocyte Esterase 1+ H Urine WBC (Auto) 5-10 H Urine RBC (Auto) 0-4 U Hyaline Cast (Auto) 5-10 H U Epithel Cells (Auto) >30 H Urine Bacteria (Auto) Negative Urine Mucus Present A Urine Test Salicylates Urine Opiates Screen Neg Ur Methadone, Qual Neg Acetaminophen Urine Barbiturates Neg Ur Phencyclidine (PCP) Neg U Amphetamines Confirm U Amphetamin/Meth Scrn Pos H U Methamphetamin Confrm Urine MDEA MDMA (Ecstasy) Screen Pos H MDMA Urine MDMA U Benzodiazepines Scrn Neg Ur Cocaine Metabolite Neg U Marijuana (THC) Screen Neg Drug Screen Comment Ethyl Alcohol mg/dL < 3.0 COVID-19 Eval Order SARS-CoV-2, RNA, NAAT 03/01/21 03/01/21 03/01/21 12:49 12:49 13:33 WBC RBC Hgb Hct MCV MCH MCHC RDW Std Deviation RDW Coeff of Brooke Plt Count MPV Immature Gran % (Auto) Neut % (Auto) Lymph % (Auto) [place] % (Auto) Eos % (Auto) Baso % (Auto) Neut # (Auto) Lymph # (Auto) [place] # (Auto) Eos # (Auto) Baso # (Auto) Immature Gran # (Auto) Sodium Potassium Chloride Carbon Dioxide Anion Gap BUN Creatinine Est Cr Clr Drug Dosing Est GFR ( Amer) Est GFR (Non-Af Amer) BUN/Creatinine Ratio Glucose Fasting Glucose Calcium Total Bilirubin AST ALT Alkaline Phosphatase Troponin I Total Protein Albumin Globulin Albumin/Globulin Ratio Triglycerides Cholesterol LDL Cholesterol, Calc VLDL Cholesterol, Calc HDL Cholesterol Cholesterol/HDL Ratio TSH Urine Color Urine Appearance Urine pH Ur Specific [place] Urine Protein Urine Glucose (UA) Urine Ketones Urine Blood Urine Nitrite Urine Bilirubin Urine Urobilinogen Ur Leukocyte Esterase Urine WBC (Auto) Urine RBC (Auto) U Hyaline Cast (Auto) U Epithel Cells (Auto) Urine Bacteria (Auto) Urine Mucus Urine Test Negative Salicylates Urine Opiates Screen Ur Methadone, Qual Acetaminophen Urine Barbiturates Ur Phencyclidine (PCP) U Amphetamines Confirm 21185 H U Amphetamin/Meth Scrn U Methamphetamin Confrm >20753 H Urine MDEA negative MDMA (Ecstasy) Screen MDMA negative Urine MDMA negative U Benzodiazepines Scrn Ur Cocaine Metabolite U Marijuana (THC) Screen Drug Screen Comment SEE NOTE Ethyl Alcohol mg/dL COVID-19 Eval [facility] SARS-CoV-2, RNA, NAAT 03/01/21 03/03/21 03/05/21 13:33 07:30 11:57 WBC RBC Hgb Hct MCV MCH MCHC RDW Std Deviation RDW Coeff of Brooke Plt Count MPV Immature Gran % (Auto) Neut % (Auto) Lymph % (Auto) [place] % (Auto) Eos % (Auto) Baso % (Auto) Neut # (Auto) Lymph # (Auto) [place] # (Auto) Eos # (Auto) Baso # (Auto) Immature Gran # (Auto) Sodium Potassium Chloride Carbon Dioxide Anion Gap BUN Creatinine Est Cr Clr Drug Dosing Est GFR ( Amer) Est GFR (Non-Af Amer) BUN/Creatinine Ratio Glucose Fasting Glucose 99 Calcium Total Bilirubin AST ALT Alkaline Phosphatase Troponin I < 0.015 Total Protein Albumin Globulin Albumin/Globulin Ratio Triglycerides 186 H Cholesterol 123 LDL Cholesterol, Calc 52 VLDL Cholesterol, Calc 37 HDL Cholesterol 34 Cholesterol/HDL Ratio 4 TSH Urine Color Urine Appearance Urine pH Ur Specific [place] Urine Protein Urine Glucose (UA) Urine Ketones Urine Blood Urine Nitrite Urine Bilirubin Urine Urobilinogen Ur Leukocyte Esterase Urine WBC (Auto) Urine RBC (Auto) U Hyaline Cast (Auto) U Epithel Cells (Auto) Urine Bacteria (Auto) Urine Mucus Urine Test Salicylates Urine Opiates Screen Ur Methadone, Qual Acetaminophen Urine Barbiturates Ur Phencyclidine (PCP) U Amphetamines Confirm U Amphetamin/Meth Scrn U Methamphetamin Confrm Urine MDEA MDMA (Ecstasy) Screen MDMA Urine MDMA U Benzodiazepines Scrn Ur Cocaine Metabolite U Marijuana (THC) Screen Drug Screen Comment Ethyl Alcohol mg/dL COVID-19 Eval Order SARS-CoV-2, RNA, NAAT NEGATIVE Hospital Course (1) Schizoaffective disorder: 03/09/2021atient tolerating antipsychotic administration well. Will discontinue oral antipsychotic. Mood seems to be improving nicely 03/08/2021--patient with significant low mood in the setting of antipsychotic administration. Antidepressant augmentation was discussed, patient will consider and will further discuss tomorrow. 03/06/21--Klonopin taper and d/c over next 3 doses as appears more sedated as further through withdrawal. If tolerates Invega may receive first injection as early as tomorrow. 03/05/21--continue cross taper to Invega. Risperdal 0.5 mg this hs then d/c in favor of Invega 6 mg po qam. 03/04/21--Risks/benefits/alternatives reviewed re: conversion to Invega as trial given availability of monthly KIRBY. Invega sustenna is covered by her insurance per nursing. 03/03/21--continue Risperdal 1 mg BID with prn. As patient is having ongoing anxiety related to garcia and withdrawing from meth will offer short term use of benzodiazepine. Risks/benefits/alternatives reviewed and she is aware this medication is for short term use only while monitored in hospital and will not be prescribed at discharge. Patient agreed to Klonopin 0.5 mg BID. 03/02/21 The patient was admitted to the [facility] ([facility] mental health unit) on q15 min checks (behavioral with suicide precautions) for safety. The patient will participate in group, recreational, and milieu therapies and will be offered additional individual and family sessions as clinically appropriate. Risks/benefits/alternatives were reviewed re: antipsychotics for mood and/or psychosis. Discussion included but was not limited to metabolic side effects, risks of TD and suicidal thoughts. There were no abnormal motor movements at baseline. Fasting glucose and lipid panel ordered for baseline monitoring. She agreed to continue Risperdal prn and add BID dosing for now while considers Invega trial as monthly KIRBY. (2) Polysubstance (excluding opioids) dependence: 03/04/21--d/c AWSS, patient continues to refuse rehab. 03/03/21--only scored 1 last night on AWSS for subjective anxiety. 03/02/21 AWSS protocol with Ativan prn as risk of withdrawal, will not neurontin load as on some standing/restarting and current use is sporadic and less likely to cause ETOH withdrawal. The patient's AUDIT score suggests problematic drinking ([place] WHO) and meth use is particularly problematic given her hx of aud garcia. Brief intervention was offered and accepted. Intervention was greater than 5 min in length and included assessing readiness to quit, advice on how to reduce or abstain from alcohol and other substances, and to set a specific goal for this hospitalization. family worker will also assist in anticipating barriers to sobriety and in problem-solving for solutions to those problems while arranging for referral to appropriate treatment. The patient is in contemplation stage with regards to transtheoretical model of change as wants help to get back on psych meds but is ambivalent around rehab. The patient is advised to abstain from ETOH and meth, and other substances due to depressant effects and risk of interaction with prescription medications and psychosis. The patient will be provided with recovery materials to continue to educate self on how to cope with their condition without drinking. (3) Chest pain: 03/06/21--resolved, consistent with anxiety and avoidance of group but will monitor. Current subjective dizziness. 03/05/21--likely anxiety but did not want to ignore given hx of CAD. CXR and EKG ordered. No ST elevations to suggest ischemia, 1 set of toponins negative. Pain resolved as I was discussing possible consult with hospitalist. Moving to the med floor for monitoring would be less therapeutic environment and disrupt the care for her anxiety which appears to be the cause. . Mental Health & Subst Abuse Tx Psychiatrist Name of Psychiatrist: Mike Eng Psychiatrist's Date of Appointment with Psychiatrist: 04/02/21 Time of Appointment with Psychiatrist: 10:30 AM Psychiatric Appointment Comment: [address] , [place] [address] Psychiatrist Release of Information: Obtained, Reviewed and Signed Therapist Name of Therapist: Artem Marmolejo Therapist's Date of Therapist Appointment: 03/13/21 Time of Therapist Appointment: 8:30 a.m. (In person) Therapy Appointment Comment: [address], [address], [place] Therapist Release of Information: Obtained, Reviewed and Signed Post Discharge Appointments Primary Care Physician Name Of Family Doctor: Dr. Ochoa- [facility] Primary Care Date of Appointment with PCP: 03/12/21 Time of Appointment with PCP: 2:15 pm [facility]ment [facility] [address] [facility] [address] Primary Care Release of Information: Obtained, Reviewed and Signed Smoking Cessation Counseling Tobacco Cessation Medication Prescribed at Discharge: Offered & Prescribed Tobacco Cessation Counseling: Referral Faxed Other #1: Name of Aftercare Appointment: [facility], appt for long acting injectable Phone Number of Aftercare Appointment: [phone] Date of Aftercare Appointment: 04/10/21 Time of Aftercare Appointment: 10 am Aftercare Appointment Comment: . Release of Information Aftercare Appointment: Obtained, Reviewed and Signed #2: Name of Aftercare Appointment: [facility] Phone Number of Aftercare Appointment: [phone] Aftercare Appointment Comment: call to schedule for needed appointments at least 3 days in advance Contact Information Discharge Discharge Address: [address] [place] [address], [place] [address] Discharge Plan Discharge Items Patient Disposition: Home - Self-Care Reason For Visit: SCHZIOAFFECTIVE D/O Discharge Diagnosis: schizoaffective disorder Activity: Per Instructions section Non-emergency contact: Primary Care Provider and Psychiatrist Call non-emergency contact if: you have any medication questions and your symptoms worsen Follow-up/Referrals: Juan Carlos Martinez MD [Primary Care Provider] - Diet: Regular Addtl Attending Provider Instructions: SPECIAL CARE INSTRUCTIONS: 1. Follow through with your scheduled aftercare appointments. If unable to keep an appointment, please call to reschedule. 2. Take your medication only as prescribed. Medication should not be changed or stopped without the approval of your doctor. In the event of worsening symptoms or concerns about side effects, contact your doctor immediately. 3. Utilize new healthy coping skills, anger management skills, and stress management skills learned during your hospitalization. Journal feelings and process them with a support person. Identify stressors or situations that may result in relapse, deterioration or inappropriate behaviors and develop a plan to deal with those issues. 4. If your coping skills are ineffective and you are in crisis, contact your outpatient providers for direction. If unable to reach your providers, please call the [facility] CRISIS LINE AT , go to the [facility] walk-in center at [address], [address], [place], or go to the closest Emergency Room. 5. Avoid alcohol and un-prescribed drugs. 6. You have been provided with the Mental Health Advance Directives Pamphlet for your review. AFTERCARE APPOINTMENTS: * Please call your insurance company prior to your scheduled appointment to confirm your aftercare providers are covered. Take your insurance information to your arjun ointments. WHO TO CALL AND WHEN: Medical Emergencies: For questions or emergencies related to your hospital stay, please contact the Inpatient Behavioral Health Unit at [phone]. A bioinformatics associate is on-call 02/05 for the Behavioral Health Unit for emergencies At any time you feel your situation is an emergency, you may also call 911 immediately. Pending Studies at Discharge: No Stand-Alone Forms: My [facility], Smoking Cessation Medications and DC Order Prescriptions: New nicotine [Nicoderm CQ] 21 mg/24 hr Patch 24 Hour 21 mg transdermal QAM Qty: 28 RF: 0 risperidone 1 mg Tablet 1 mg PO DAILY PRN (Reason: agitation) Qty: 30 RF: 0 Continued metoprolol succinate 25 mg tablet extended release 24 hr 25 mg PO DAILY Qty: 90 RF: 3 hydroxyzine pamoate 50 mg capsule 50 mg PO TID Qty: 30 RF: 0 cholecalciferol (vitamin D3) 5,000 unit capsule 5,000 units PO DAILY Qty: 30 RF: 0 atorvastatin 80 mg tablet 80 mg PO QPM Qty: 90 RF: 3 clopidogrel 75 mg tablet 75 mg PO QAM Qty: 90 RF: 3 pantoprazole 40 mg tablet,delayed release (DR/EC) 40 mg PO QAM Qty: 90 RF: 3 levothyroxine 25 mcg tablet 25 mcg PO DAILY Qty: 90 RF: 3 gabapentin 100 mg capsule 200 mg PO HS Qty: 180 RF: 3 aspirin 81 mg Tablet,Delayed Release (Dr/Ec) 81 mg PO DAILY RF: 0 Discontinued venlafaxine 150 mg capsule,extended release 24hr 150 mg PO DAILY Qty: 14 RF: 0 Discharge Orders: Discharge Order (Routine); Ordered 03/11/21 Ordered By: Tong Malloy Admission Data Admit Date/Time: 03/01/21 18:20 Attending Provider: Tong Malloy Admit Provider: Brittaney Soriano Primary Care Provider: Juan Carlos Martinez V. Other Interventions: Discharge Summary Assessment (RN) Last Done: 03/11/21 08:05 PSY Interdisciplinary Discharge Planning Last Done: 03/11/21 08:46 Coding Level of Care Code 91158 D/C day mgmt > 30 min Diagnoses Schizoaffective disorder F25.1 Schizoaffective disorder type: depressive Polysubstance (excluding opioids) dependence F19.20 Chest pain R07.9
== END 2021-03-11 09:45 | disposition home or self-care (01) | DRG 885 ==
LOC: ED 11:56 → 3S 18:20 → SUATTDRO 18:20 → 3S 20:01

== ENCOUNTER 2021-06-13 11:45 | Inpatient (IN) ==
--- NOTE | 2021-06-13 12:16 | Emergency Department Note ---
Impression & Plan Alcohol abuse, Depression with suicidal ideation, Encounter for smoking cessation counseling ED Provider Note NAME: THADDEUS TIRADO AGE: 51 SEX: F : 1970 ARRIVES VIA: Walk-In INFORMANT: Patient, ED PROVIDER(S): Avtar Mcneill MD Chief Complaint: Alcohol abuse, suicidal ideation HPI: Patient does present with the above concerns. The patient states that she has been feeling more depressed and suicidal with passive thoughts of self-harm. The patient does have a prior history of attempt most recently last year by overdosing on pills. Patient denies any access to guns or weapons. The patient does live with her son's father. Patient does not feel safe at home. The patient has had some auditory and visual hallucinations. Patient states that they are not commanding her to do anything but portend that "I will be arrested." The patient denies any HI. The patient states her sleep and appet ite have been poor. The patient states that she is compliant with her medications and does have outpatient follow-up. Patient is vaccinated for Covid. ROS: See HPI for pertinent positives and negatives. A total of 10 systems were reviewed and otherwise negative. Past medical history: See below Surgical history: See below Social history: See below Physical Exam: GENERAL: NAD, non-toxic. EYE EXAM: Normal conjunctiva. PERRL, no anisocoria and EOM's grossly intact w/o pain. NECK: Supple, no nuchal rigidity, no adenopathy, non-tender. No signs of meningismus. LUNGS: Clear to auscultation. Normal chest wall mechanics. HEART: NSR, no MRG. ABDOMEN: Abdomen soft, non-tender, normo-active bowel sounds, no masses, no rebound or guarding. BACK: No CVA TTP. SKIN: No rashes and no bruising. UPPER EXTREMITIES: Upper extremities are grossly normal. LOWER EXTREMITIES: Grossly normal, no edema. NEURO EXAM: A&O x3, cranial nerves II-XII grossly intact, normal speech, moves all 4 extremities on command w/o issue. Psych: SI, negative HI or AVH. Differential diagnoses: Mood disorder, infection, hypoglycemia, electrolyte abnormalities, cardiac sources, intracerebral event, toxicologic, trauma, neurologic, as well as other pathologies. Course: Patient was seen and evaluated the bedside. Full history physical exam was performed. MDM: Patient was seen due to concern for suicidal ideation. The patient was also seen for history of alcohol abuse and would like to seek treatment. Blood work is obtained. Patient was ordered Librium as a precaution and nicotine patch. The patient had already taken her morning medications. Patient was seen medically cleared seen and evaluated by the psych casework supervisor and a referral was made for inpatient treatment for [facility]. Patient was accepted to [facility]. Past Med/Surg History Medical History Anxiety and depression Auditory hallucinations B12 deficiency Coronary artery disease, occlusive (03/31/14) Folate deficiency GERD (gastroesophageal reflux disease) History of stroke Hyperlipidemia LDL goal <70 Hypertension Medical non-compliance Right shoulder pain Schizoaffective disorder Schizoaffective disorder, depressive type STEMI (ST elevation myocardial infarction) TIA (transient ischemic attack) Surgical History H/O heart artery stent Family History Mother Diabetes Father , age 70 of pancreatic cancer. 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 Feels Safe at Home: Hesitant to Answer Assistive Devices: None Allergies Allergies Allergy/AdvReac Type Severity Reaction Status Date / Time No Known Allergies Allergy Verified 06/13/21 12:19 Home Meds Home Medications Medication Instructions Recorded Confirmed benztropine 0.5 mg tablet 0.5 mg PO TID 04/02/21 06/13/21 ibuprofen 800 mg tablet 800 mg PO DAILY PRN 04/02/21 04/02/21 bupropion HCl 150 mg tablet,12 hr 150 mg PO 06/13/21 sustained-release naltrexone 50 mg tablet 50 mg 06/13/21 Previous Rx's Medication Instructions Recorded cholecalciferol (vitamin D3) 125 5,000 units PO DAILY #30 cap 03/21/19 mcg (5,000 unit) capsule atorvastatin 80 mg tablet 80 mg PO QPM #90 tab 08/26/20 clopidogrel 75 mg tablet 75 mg PO QAM #90 tab 08/26/20 pantoprazole 40 mg tablet,delayed 40 mg PO QAM #90 tab 08/26/20 release gabapentin 100 mg capsule 200 mg PO HS #180 cap 01/08/21 nicotine 21 mg/24 hr daily 21 mg TRANSDERMAL QAM #28 ea 03/11/21 transdermal patch (Nicoderm CQ) risperidone 1 mg tablet 1 mg PO DAILY PRN #30 tab 03/11/21 aspirin 81 mg tablet,delayed 81 mg PO DAILY #90 tab 03/17/21 release metoprolol succinate 25 mg 25 mg PO DAILY #90 tab 03/17/21 tablet,extended release 24 hr paliperidone palmitate 156 mg/mL 156 mg IM Q30D #1 ml 03/17/21 intramuscular syringe (Invega Sustenna) hydroxyzine pamoate 50 mg capsule 50 mg PO HS #30 cap 04/03/21 amoxicillin 875 mg-potassium 1 tab PO BID #14 tab 04/09/21 clavulanate 125 mg tablet (Augmentin) Results & Data (ED) Vital Signs Vital Signs - 24 hr 06/13/21 11:49 06/13/21 13:53 06/13/21 16:00 Temperature 36.8 C Temperature Source Temporal Artery Scan Pulse Rate 90 Pulse Rate [Finger] 84 75 Pulse Rhythm Regular Pulse Rhythm [Finger] Regular Pulse Strength Normal Pulse Strength [Finger] Normal Respiratory Rate 18 14 16 Respiratory Effort / Characteristics Non-Labored Spontaneous Non-Labored Spontaneous Respiratory Depth Normal Normal Respiratory Pattern Regular Blood Pressure 133/93 Blood Pressure [Left Arm] 119/86 117/73 Blood Pressure Mean 106 Blood Pressure Mean [Left Arm] 97 87 Blood Pressure Position [Left Arm] Lying Pulse Oximetry 95 100 99 Oxygen Delivery Method Room Air Room Air Room Air Sepsis Recent Fever Within 48 Hours No Sepsis New/Unexplained Change in Mental Status No Sepsis Action Taken by Nursing No Action Required Home Medications Current Medication List: was personally reviewed by me Laboratory Data Attestation: I reviewed the patient's lab results. Result diagrams: 06/13/21 12:23 06/13/21 12:23 Lab Results 06/13/21 06/13/21 06/13/21 Range/Units 12:00 12:00 12:00 WBC (4.8-10.8) K/uL RBC (4.2-5.4) M/uL Hgb (12.0-16.0) g/dL Hct (37-47) % MCV (80-100) fL MCH (25-34) pg MCHC (32-36) g/dL RDW Std Deviation (36.4-46.3) fL RDW Coeff of Brooke (11.5-14.5) % Plt Count (130-400) K/uL MPV (7.4-10.4) fL Immature Gran % (Auto) % Neut % (Auto) % Lymph % (Auto) % [place] % (Auto) % Eos % (Auto) % Baso % (Auto) % Neut # (Auto) (1.4-6.5) K/uL Lymph # (Auto) (1.2-3.4) K/uL [place] # (Auto) (0.11-0.59) K/uL Eos # (Auto) (0-0.5) K/uL Baso # (Auto) (0-0.2) K/uL Immature Gran # (Auto) (0.00-0.02) K/uL Sodium (136-145) mmol/L Potassium (3.5-5.1) mmol/L Chloride (98-107) mmol/L Carbon Dioxide (21-32) mmol/L Anion Gap (3-11) BUN (7-18) mg/dl Creatinine (0.6-1.2) mg/dl Est Cr Clr Drug Dosing Est GFR ( Amer) ml/min Est GFR (Non-Af Amer) ml/min BUN/Creatinine Ratio (10-20) Glucose (70-99) mg/dl Calcium (8.5-10.1) mg/dl Total Bilirubin (0.2-1) mg/dl AST (15-37) U/L ALT (12-78) U/L Alkaline Phosphatase (45-117) U/L Total Protein (6.4-8.2) gm/dl Albumin (3.4-5.0) gm/dl Globulin (2.5-4.0) gm/dl Albumin/Globulin Ratio (0.9-2) TSH (0.300-4.500) uIu/ml Urine Color Dark Yellow Urine Appearance Cloudy A (Clear) Urine pH 7.0 (4.5-7.5) Ur Specific [place] 1.015 (1.000-1.030) Urine Protein Negative (Negative) Urine Glucose (UA) Negative (Negative) Urine Ketones Negative (Negative) Urine Blood Negative (Negative) Urine Nitrite Negative (Negative) Urine Bilirubin Negative (Negative) Urine Urobilinogen Negative (Negative) Ur Leukocyte Esterase Negative (Negative) Urine WBC (Auto) 1-5 (0-5) /hpf Urine RBC (Auto) 0-4 (0-4) /hpf U Hyaline Cast (Auto) 1-5 (0-5) /lpf U Epithel Cells (Auto) >30 H (0-5) /lpf Urine Bacteria (Auto) Negative (Negative) Urine Test Negative (Negative) Salicylates (2.8-20) mg/dl Urine Opiates Screen Neg (Neg) Ur Methadone, Qual Neg (Neg) Acetaminophen (10-30) ug/ml Urine Barbiturates Neg (Neg) Ur Phencyclidine (PCP) Neg (Neg) U Amphetamin/Meth Scrn Pos H (Neg) MDMA (Ecstasy) Screen Pos H (Neg) U Benzodiazepines Scrn Neg (Neg) Ur Cocaine Metabolite Neg (Neg) U Marijuana (THC) Screen Pos H (Neg) Ethyl Alcohol mg/dL (0-3) mg/dl COVID-19 Eval Order SARS-CoV-2, RNA, NAAT (NEGATIVE) 06/13/21 06/13/21 06/13/21 Range/Units 12:23 12:23 12:23 WBC 8.46 (4.8-10.8) K/uL RBC 5.14 (4.2-5.4) M/uL Hgb 15.4 (12.0-16.0) g/dL Hct 44.0 (37-47) % MCV 85.6 (80-100) fL MCH 30.0 (25-34) pg MCHC 35.0 (32-36) g/dL RDW Std Deviation 46.1 (36.4-46.3) fL RDW Coeff of Brooke 14.8 H (11.5-14.5) % Plt Count 305 (130-400) K/uL MPV 10.4 (7.4-10.4) fL Immature Gran % (Auto) 0.2 % Neut % (Auto) 70.4 % Lymph % (Auto) 21.2 % [place] % (Auto) 7.8 % Eos % (Auto) 0.2 % Baso % (Auto) 0.2 % Neut # (Auto) 5.95 (1.4-6.5) K/uL Lymph # (Auto) 1.79 (1.2-3.4) K/uL [place] # (Auto) 0.66 H (0.11-0.59) K/uL Eos # (Auto) 0.02 (0-0.5) K/uL Baso # (Auto) 0.02 (0-0.2) K/uL Immature Gran # (Auto) 0.02 (0.00-0.02) K/uL Sodium 136 (136-145) mmol/L Potassium 3.9 (3.5-5.1) mmol/L Chloride 105 (98-107) mmol/L Carbon Dioxide 25 (21-32) mmol/L Anion Gap 6.0 (3-11) BUN 6 L (7-18) mg/dl Creatinine 0.85 (0.6-1.2) mg/dl Est Cr Clr Drug Dosing Not Reportable Est GFR ( Amer) 92.0 ml/min Est GFR (Non-Af Amer) 79.3 ml/min BUN/Creatinine Ratio 7.5 L (10-20) Glucose 122 H (70-99) mg/dl Calcium 9.1 (8.5-10.1) mg/dl Total Bilirubin 1.0 (0.2-1) mg/dl AST 18 (15-37) U/L ALT 25 (12-78) U/L Alkaline Phosphatase 130 H (45-117) U/L Total Protein 7.1 (6.4-8.2) gm/dl Albumin 3.6 (3.4-5.0) gm/dl Globulin 3.5 (2.5-4.0) gm/dl Albumin/Globulin Ratio 1.0 (0.9-2) TSH 2.300 (0.300-4.500) uIu/ml Urine Color Urine Appearance (Clear) Urine pH (4.5-7.5) Ur Specific [place] (1.000-1.030) Urine Protein (Negative) Urine Glucose (UA) (Negative) Urine Ketones (Negative) Urine Blood (Negative) Urine Nitrite (Negative) Urine Bilirubin (Negative) Urine Urobilinogen (Negative) Ur Leukocyte Esterase (Negative) Urine WBC (Auto) (0-5) /hpf Urine RBC (Auto) (0-4) /hpf U Hyaline Cast (Auto) (0-5) /lpf U Epithel Cells (Auto) (0-5) /lpf Urine Bacteria (Auto) (Negative) Urine Test (Negative) Salicylates 3.5 (2.8-20) mg/dl Urine Opiates Screen (Neg) Ur Methadone, Qual (Neg) Acetaminophen < 2 L (10-30) ug/ml Urine Barbiturates (Neg) Ur Phencyclidine (PCP) (Neg) U Amphetamin/Meth Scrn (Neg) MDMA (Ecstasy) Screen (Neg) U Benzodiazepines Scrn (Neg) Ur Cocaine Metabolite (Neg) U Marijuana (THC) Screen (Neg) Ethyl Alcohol mg/dL (0-3) mg/dl COVID-19 Eval Order SARS-CoV-2, RNA, NAAT (NEGATIVE) 06/13/21 06/13/21 06/13/21 Range/Units 12:23 12:30 12:30 WBC (4.8-10.8) K/uL RBC (4.2-5.4) M/uL Hgb (12.0-16.0) g/dL Hct (37-47) % MCV (80-100) fL MCH (25-34) pg MCHC (32-36) g/dL RDW Std Deviation (36.4-46.3) fL RDW Coeff of Brooke (11.5-14.5) % Plt Count (130-400) K/uL MPV (7.4-10.4) fL Immature Gran % (Auto) % Neut % (Auto) % Lymph % (Auto) % [place] % (Auto) % Eos % (Auto) % Baso % (Auto) % Neut # (Auto) (1.4-6.5) K/uL Lymph # (Auto) (1.2-3.4) K/uL [place] # (Auto) (0.11-0.59) K/uL Eos # (Auto) (0-0.5) K/uL Baso # (Auto) (0-0.2) K/uL Immature Gran # (Auto) (0.00-0.02) K/uL Sodium (136-145) mmol/L Potassium (3.5-5.1) mmol/L Chloride (98-107) mmol/L Carbon Dioxide (21-32) mmol/L Anion Gap (3-11) BUN (7-18) mg/dl Creatinine (0.6-1.2) mg/dl Est Cr Clr Drug Dosing Est GFR ( Amer) ml/min Est GFR (Non-Af Amer) ml/min BUN/Creatinine Ratio (10-20) Glucose (70-99) mg/dl Calcium (8.5-10.1) mg/dl Total Bilirubin (0.2-1) mg/dl AST (15-37) U/L ALT (12-78) U/L Alkaline Phosphatase (45-117) U/L Total Protein (6.4-8.2) gm/dl Albumin (3.4-5.0) gm/dl Globulin (2.5-4.0) gm/dl Albumin/Globulin Ratio (0.9-2) TSH (0.300-4.500) uIu/ml Urine Color Urine Appearance (Clear) Urine pH (4.5-7.5) Ur Specific [place] (1.000-1.030) Urine Protein (Negative) Urine Glucose (UA) (Negative) Urine Ketones (Negative) Urine Blood (Negative) Urine Nitrite (Negative) Urine Bilirubin (Negative) Urine Urobilinogen (Negative) Ur Leukocyte Esterase (Negative) Urine WBC (Auto) (0-5) /hpf Urine RBC (Auto) (0-4) /hpf U Hyaline Cast (Auto) (0-5) /lpf U Epithel Cells (Auto) (0-5) /lpf Urine Bacteria (Auto) (Negative) Urine Test (Negative) Salicylates (2.8-20) mg/dl Urine Opiates Screen (Neg) Ur Methadone, Qual (Neg) Acetaminophen (10-30) ug/ml Urine Barbiturates (Neg) Ur Phencyclidine (PCP) (Neg) U Amphetamin/Meth Scrn (Neg) MDMA (Ecstasy) Screen (Neg) U Benzodiazepines Scrn (Neg) Ur Cocaine Metabolite (Neg) U Marijuana (THC) Screen (Neg) Ethyl Alcohol mg/dL < 3.0 (0-3) mg/dl COVID-19 Eval Order Covid19 [facility] SARS-CoV-2, RNA, NAAT NEGATIVE (NEGATIVE) Administered Medications Nicotine (Nicotine 21 Mg/24 Hr Tdsy) 21 mg TD QAM NILSON Stop: 07/13/21 12:44 Last Admin: 06/13/21 12:50 Dose: 21 mg Documented by: [id number] Discontinued Medications Chlordiazepoxide HCl (Chlordiazepoxide Hcl 25 Mg Cap) 50 mg PO NOW ONE Stop: 06/13/21 12:40 Last Admin: 06/13/21 12:50 Dose: 50 mg Documented by: [id number] Discharge Plan Visit Data Chief Complaint: Mental Health Evaluation Stated Complaint: DETOX REQUEST,NEEDS PLACEMENT AND CLEARANCE ED Provider: Avtar Mcneill Discharge Problem: Alcohol abuse, Depression with suicidal ideation, Encounter for smoking cessation counseling Forms Stand Alone Forms: [facility], Suicide Prevention Resources Prescriptions Prescriptions: No Action hydroxyzine pamoate 50 mg capsule 50 mg PO HS Qty: 30 RF: 0 cholecalciferol (vitamin D3) 5,000 unit capsule 5,000 units PO DAILY Qty: 30 RF: 0 aspirin 81 mg tablet,delayed release (DR/EC) 81 mg PO DAILY Qty: 90 RF: 3 metoprolol succinate 25 mg tablet extended release 24 hr 25 mg PO DAILY Qty: 90 RF: 3 Invega Sustenna 156 mg/mL syringe 156 mg IM Q30D Qty: 1 RF: 2 atorvastatin 80 mg tablet 80 mg PO QPM Qty: 90 RF: 3 clopidogrel 75 mg tablet 75 mg PO QAM Qty: 90 RF: 3 pantoprazole 40 mg tablet,delayed release (DR/EC) 40 mg PO QAM Qty: 90 RF: 3 gabapentin 100 mg capsule 200 mg PO HS Qty: 180 RF: 3 nicotine [Nicoderm CQ] 21 mg/24 hr Patch 24 Hour 21 mg transdermal QAM Qty: 28 RF: 0 risperidone 1 mg Tablet 1 mg PO DAILY PRN (Reason: agitation) Qty: 30 RF: 0 amoxicillin-pot clavulanate [Augmentin] 875-125 mg tablet 1 tab PO BID Qty: 14 RF: 0 benztropine 0.5 mg tablet 0.5 mg PO TID RF: 0 ibuprofen 800 mg tablet 800 mg PO DAILY PRN (Reason: Pain) RF: 0 bupropion HCl 150 mg tablet sustained-release 12 hr 150 mg PO RF: 0 naltrexone 50 mg tablet 50 mg RF: 0 Referrals Referrals: Juan Carlos Martinez MD [Primary Care Provider] -
[2021-06-13 12:28] LABS: Appearance Urine Cloudy (Clear); Bacteria Urine Automated Negative (Negative); Bilirubin Urine Negative (Negative); Blood Urine Negative (Negative); Color Urine Dark Yellow; Epithelial Cell Urine Auto >30 /lpf (0-5); Glucose Urine UA Negative (Negative); Ketones Urine Negative (Negative); Leukocyte Esterase Urine Negative (Negative); Nitrite Urine Negative (Negative); Protein Urine Negative (Negative); RBC Urine Automated 0-4 /hpf (0-4); Specific Gravity Urine 1.015 (1.000-1.030); Urobilinogen Urine Negative (Negative)
[2021-06-13 12:35] LABS: Pregnancy Test, Urine Negative (Negative)
[2021-06-13 12:39] LABS: Basophils # (auto) 0.02 K/uL (0-0.2); Basophils % (auto) 0.2 %; Eosinophils # (auto) 0.02 K/uL (0-0.5); Eosinophils % (auto) 0.2 %; Hemoglobin 15.4 g/dL (12.0-16.0); Immature Granulocytes # (auto) 0.02 K/uL (0.00-0.02); Immature Granulocytes % (auto) 0.2 %; Lymphocytes # (auto) 1.79 K/uL (1.2-3.4); Lymphocytes % (auto) 21.2 %; Mean Corpuscular Volume 85.6 fL (80-100); Mean Platelet Volume 10.4 fL (7.4-10.4); Monocytes # (auto) 0.66 K/uL (0.11-0.59); Monocytes % (auto) 7.8 %; Neutrophils # (auto) 5.95 K/uL (1.4-6.5); Neutrophils % (auto) 70.4 %; Platelet Count 305 K/uL (130-400); RDW Coefficient of Variation 14.8 % (11.5-14.5); RDW Standard Deviation 46.1 fL (36.4-46.3); Red Blood Count 5.14 M/uL (4.2-5.4); White Blood Count 8.46 K/uL (4.8-10.8)
[2021-06-13] MEDS ORDERED: chlordiazePOXIDE HCl 25 MG CAP PO ONE (12:39)
[2021-06-13] MEDS: NICOTINE 21 MG/24 HR TDSY TD SCH (12:50)
[2021-06-13 12:54] LABS: Amphetamines+Metham, Urine Pos (Neg); Barbiturates, Urine Neg (Neg); Benzodiazepine, Urine Neg (Neg); Cocaine, Urine Neg (Neg); MDMA (Ecstacy), Urine Pos (Neg); Methadone, Urine Neg (Neg); Opiate, Urine Neg (Neg); Phencyclidine, Urine Neg (Neg)
[2021-06-13 13:00] LABS: Alanine Aminotransferase 25 U/L (12-78); Albumin Level 3.6 gm/dl (3.4-5.0); Aspartate Aminotransferase 18 U/L (15-37); BUN Creatinine Ratio 7.5 (10-20); Blood Urea Nitrogen 6 mg/dl (7-18); Calcium 9.1 mg/dl (8.5-10.1); Carbon Dioxide 25 mmol/L (21-32); Chloride 105 mmol/L (98-107); Est GFR (Non-African American) 79.3 ml/min; Glucose 122 mg/dl (70-99); Potassium 3.9 mmol/L (3.5-5.1); Sodium 136 mmol/L (136-145)
[2021-06-13 13:07] LABS: Acetaminophen < 2 ug/ml (10-30); Salicylate 3.5 mg/dl (2.8-20)
[2021-06-13 13:11] LABS: Alkaline Phosphatase 130 U/L (45-117); Globulin 3.5 gm/dl (2.5-4.0); Total Protein 7.1 gm/dl (6.4-8.2)
[2021-06-13] MEDS ORDERED: SODIUM CHLORIDE 0.65% NA SOLN 45 ML (OCEAN) PRN (17:35)
[2021-06-13] MEDS ORDERED: hydrOXYzine HCl 25 MG TAB PO PRN ×2 (17:35)
[2021-06-13] MEDS ORDERED: MAGNESIUM HYDROXIDE SUSP 30 ML UDC PO PRN (17:35)
[2021-06-13] MEDS ORDERED: BISMUTH SUBSALICYLATE LIQD 236 ML PO PRN (17:35)
[2021-06-13] MEDS ORDERED: ALUMINUM/MAGNESIUM SUSP 30 ML UDC PO PRN (17:35)
[2021-06-13] MEDS ORDERED: ACETAMINOPHEN 325 MG TAB PO PRN (17:35)
[2021-06-13] MEDS ORDERED: NICOTINE POLACRILEX 2 MG GUM MT PRN (19:22)
[2021-06-14] MEDS: NICOTINE 21 MG/24 HR TDSY TD SCH (08:38)
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
[2021-06-14] MEDS: ASPIRIN 81 MG ECTAB PO SCH (15:12)
[2021-06-14] MEDS: BENZTROPINE MESYLATE 0.5 MG TAB PO SCH ×2 (15:12→21:10)
[2021-06-14] MEDS: CLOPIDOGREL BISULFATE 75 MG TAB PO SCH (15:13)
[2021-06-14] MEDS: ATORVASTATIN 40 MG TAB PO SCH (21:08)
[2021-06-14] MEDS: traZODone HCL 100 MG TAB PO SCH (21:10)
[2021-06-14] MEDS: GABAPENTIN 100 MG CAP PO SCH (21:10)
[2021-06-15] MEDS: NICOTINE 21 MG/24 HR TDSY TD SCH (08:30)
[2021-06-15] MEDS: BENZTROPINE MESYLATE 0.5 MG TAB PO SCH ×3 (08:31→20:28)
[2021-06-15] MEDS: ASPIRIN 81 MG ECTAB PO SCH (08:31)
[2021-06-15] MEDS: buPROPion SR 150 MG TABCR PO SCH (08:32)
[2021-06-15] MEDS: CHOLECALCIFEROL 1,000 UNITS 25 MCG TAB PO SCH (08:32)
[2021-06-15] MEDS: CLOPIDOGREL BISULFATE 75 MG TAB PO SCH (08:33)
[2021-06-15] MEDS: NALTREXONE HCL 50 MG TAB PO SCH (08:33)
[2021-06-15] MEDS: METOPROLOL SUCC 25MG EXT REL TAB PO SCH (08:33)
[2021-06-15] MEDS: PANTOprazole 40 MG TAB PO SCH (08:34)
--- NOTE | 2021-06-15 10:23 | Psychiatric Progress Note ---
Date of Service June 15, 2021 Impression / Recommendations Impression This is a 51-year-old female with history of schizoaffective illness who presented in a decompensated state likely secondary to medication noncompliance and substance use. Patient will benefit from inpatient hospitalization for purposes of safety, stabilization, medication management. Patient in agreement to restart her home medications at safe doses as well as administer long-acting injectable and plan for discharge to rehab facility. (1) Polysubstance (excluding opioids) dependence: (2) Schizoaffective disorder: The patient was admitted to the [facility] ([facility] health unit) on every 15 minute checks (behavioral with suicide precautions for safety. The patient will participate in group, recreational, and milieu therapies and will be offered additional individual and family sessions as clinically appropriate. 06/15/2021--Patient making incremental progress. Will plan on giving Invega long acting medication tomorrow. 06/14/2021we will plan to restart patient's medications including Butrans, Plavix, metoprolol as well as administer long-acting Invega in the coming days. Protective Factors Assessment Employed: No Interval History Chief Complaint "I'm feeling better". Review of Systems Sleep Information Total Hours of Sleep: 8 Meal Information Percent Meal Consumed - Breakfast: 50 Percent Meal Consumed - Lunch: 100 Percent Meal Consumed - Dinner: 50 Subjective Subjective Patient seen, chart reviewed and case discussed with treatment team, nursing and social work. Patient reports a good night of sleep and strong appetite. No side effects reported or observed. Maintaining her ADLs Regarding mood, patient reports some improvement which they attribute to the medications as well as the therapy they have received on the unit. Reports feeling better since restarting her medications. I spent 30 minutes with the patient, 50% of which was dedicated to counselling and coordination of care. Physical Exam Psychiatric Orientation: alert and oriented x 3 Apperance: appropriately dressed and appropriately groomed Eye Contact: + fair eye contact Motor Behavior: steady gait and station Speech: normal rate/rhythm/volume of speech Affect: + depressed affect and + flat affect Mood: + depressed mood Thought Process: goal directed thought process Thought Content: reality based without delusions Suicidal Thoughts: denies suicidal thoughts Homicidal Thoughts: denies homicidal thoughts Hallucinations: no auditory hallucinations and no visual hallucinations Cognition: recent memory grossly intact Estimated Intelligence: consistent with education level Insight: + fair insight Judgement: + poor judgement Vital Signs (Past 24 Hours) Last Vital Signs Temp 36.5 C 06/15/21 08:04 Pulse 81 06/15/21 08:04 Resp 18 06/15/21 06:47 BP 121/81 06/15/21 08:04 Pulse Ox 95 06/14/21 17:00 Results & Data ([facility]) Current Inpatient Medications Current Inpatient Medications: Current Inpatient Medications Acetaminophen (Acetaminophen 325 Mg Tab) 650 mg PO Q4H PRN PRN Reason: Headache or Minor Fever Stop: 07/13/21 17:34 Last Admin: 06/14/21 11:00 Dose: 650 mg Documented by: Al Hydrox/Mg Hydrox/Simethicone (Aluminum/Magnesium Susp 30 Ml Udc) 30 ml PO Q4H PRN PRN Reason: GI Upset Stop: 07/13/21 17:34 Aspirin (Aspirin 81 Mg Ectab) 81 mg PO DAILY [facility] Stop: 07/14/21 14:14 Last Admin: 06/15/21 08:31 Dose: 81 mg Documented by: Atorvastatin Calcium (Atorvastatin 40 Mg Tab) 80 mg PO QPM [facility] Stop: 07/14/21 20:59 Last Admin: 06/14/21 21:08 Dose: 80 mg Documented by: Benztropine Mesylate (Benztropine Mesylate 0.5 Mg Tab) 0.5 mg PO TID [facility] Stop: 07/14/21 13:59 Last Admin: 06/15/21 08:31 Dose: 0.5 mg Documented by: Bismuth Subsalicylate (Bismuth Subsalicylate Liqd 236 Ml) 15 ml PO PRN PRN PRN Reason: Loose Stool Stop: 07/13/21 17:34 Bupropion HCl (Bupropion Sr 150 Mg Tabcr) 150 mg PO DAILY [facility] Stop: 07/15/21 08:59 Last Admin: 06/15/21 08:32 Dose: 150 mg Documented by: Clopidogrel Bisulfate (Clopidogrel Bisulfate 75 Mg Tab) 75 mg PO QAM [facility] Stop: 07/14/21 14:29 Last Admin: 06/15/21 08:33 Dose: 75 mg Documented by: Gabapentin (Gabapentin 100 Mg Cap) 200 mg PO HS [facility] Stop: 07/14/21 21:59 Last Admin: 06/14/21 21:10 Dose: 200 mg Documented by: Hydroxyzine HCl (Hydroxyzine Hcl 25 Mg Tab) 50 mg PO HSZ PRN PRN Reason: Insomnia Stop: 07/13/21 17:34 Hydroxyzine HCl (Hydroxyzine Hcl 25 Mg Tab) 25 mg PO Q4H PRN PRN Reason: Anxiety Stop: 07/13/21 17:34 Last Admin: 06/14/21 17:13 Dose: 25 mg Documented by: Magnesium Hydroxide (Magnesium Hydroxide Susp 30 Ml Udc) 30 ml PO DAILY PRN PRN Reason: Constipation Stop: 07/13/21 17:34 Metoprolol Succinate (Metoprolol Succ 25mg Ext Rel Tab) 25 mg PO DAILY [facility] Stop: 07/15/21 08:59 Last Admin: 06/15/21 08:33 Dose: 25 mg Documented by: Miscellaneous (Remove Nicoderm Patch) 1 ea N/A DAILY@0859 [facility] Stop: 07/14/21 08:58 Last Admin: 06/15/21 08:31 Dose: 1 ea Documented by: Naltrexone HCl (Naltrexone Hcl 50 Mg Tab) 50 mg PO DAILY [facility] Stop: 07/15/21 08:59 Last Admin: 06/15/21 08:33 Dose: 50 mg Documented by: Nicotine (Nicotine 21 Mg/24 Hr Tdsy) 21 mg TD QAM [facility] Stop: 07/13/21 12:44 Last Admin: 06/15/21 08:30 Dose: 21 mg Documented by: Nicotine Polacrilex (Nicotine Polacrilex 2 Mg Gum) 1 piece MT PRN PRN PRN Reason: Nicotine Withdrawal Stop: 07/13/21 19:21 Pantoprazole Sodium (Pantoprazole 40 Mg Tab) 40 mg PO QAM [facility] Stop: 07/15/21 08:59 Last Admin: 06/15/21 08:34 Dose: 40 mg Documented by: Sodium Chloride (Sodium Chloride 0.65% Na Soln 45 Ml ([place])) 1 - 2 sprays NA PRN PRN PRN Reason: Nasal Dryness/Congestion Stop: 07/13/21 17:34 Trazodone HCl (Trazodone Hcl 100 Mg Tab) 100 mg PO HS [facility] Stop: 07/14/21 21:59 Last Admin: 06/14/21 21:10 Dose: 100 mg Documented by: Vitamin D (Cholecalciferol 1,000 Units 25 Mcg Tab) 5,000 units PO DAILY [facility] Stop: 07/15/21 08:59 Last Admin: 06/15/21 08:32 Dose: 5,000 units Documented by: Mental Health & Subst Abuse Tx Psychiatrist Name of Psychiatrist: Slava Cullen Psychiatrist's Psychiatric Appointment Comment: [id number] [facility] Therapist Name of Therapist: Artem Marmolejo Therapist's Date of Therapist Appointment: 06/16/21 Therapy Appointment Comment: [address] [facility] [address], [place] Pediatric Physical Therapist Name of Pediatric Physical Therapist: [facility] Phone Number for Pediatric Physical Therapist: [phone] Case Management Appointment Comment: [address] [facility] [address], [place] Post Discharge Appointments Primary Care Physician Name Of Family Doctor: HERMELINDA Ochoa Primary Care Provider Appointment Comment: [id number] [facility] Contact Information Discharge Discharge Address: [address] [place] [address], [place] [address] (1) Schizoaffective disorder Schizoaffective disorder type: unspecified Qualified Code(s): F25.9 - Schizoaffective disorder, unspecified
[2021-06-15] MEDS: ATORVASTATIN 40 MG TAB PO SCH (20:27)
[2021-06-15] MEDS: GABAPENTIN 100 MG CAP PO SCH (20:28)
[2021-06-15] MEDS: traZODone HCL 100 MG TAB PO SCH (20:29)
[2021-06-16] MEDS: buPROPion SR 150 MG TABCR PO SCH (08:51)
[2021-06-16] MEDS: BENZTROPINE MESYLATE 0.5 MG TAB PO SCH ×3 (08:51→20:55)
[2021-06-16] MEDS: CHOLECALCIFEROL 1,000 UNITS 25 MCG TAB PO SCH (08:51)
[2021-06-16] MEDS: ASPIRIN 81 MG ECTAB PO SCH (08:51)
[2021-06-16] MEDS: CLOPIDOGREL BISULFATE 75 MG TAB PO SCH (08:52)
[2021-06-16] MEDS: METOPROLOL SUCC 25MG EXT REL TAB PO SCH (08:52)
[2021-06-16] MEDS: NICOTINE 21 MG/24 HR TDSY TD SCH (08:52)
[2021-06-16] MEDS: NALTREXONE HCL 50 MG TAB PO SCH (08:52)
[2021-06-16] MEDS: PANTOprazole 40 MG TAB PO SCH (08:53)
[2021-06-16] MEDS ORDERED: PALIPERIDONE PALMITATE 234 MG/1.5 ML SYR IM ONE (13:00)
--- NOTE | 2021-06-16 14:30 | Psychiatric Progress Note ---
Date of Service June 16, 2021 Impression / Recommendations Impression This is a 51-year-old female with history of schizoaffective illness who presented in a decompensated state likely secondary to medication noncompliance and substance use. Patient will benefit from inpatient hospitalization for purposes of safety, stabilization, medication management. Patient in agreement to restart her home medications at safe doses as well as administer long-acting injectable and plan for discharge to rehab facility. (1) Polysubstance (excluding opioids) dependence: (2) Schizoaffective disorder: The patient was admitted to the [facility] ([facility]) on every 15 minute checks (behavioral with suicide precautions for safety. The patient will participate in group, recreational, and milieu therapies and will be offered additional individual and family sessions as clinically appropriate. 06/16/2021atient continues to display stable mood. We will plan for discharge to rehab once bed is available. 06/15/2021--Patient making incremental progress. Will plan on giving Invega long acting medication tomorrow. 06/14/2021we will plan to restart patient's medications including Butrans, Plavix, metoprolol as well as administer long-acting Invega in the coming days. Protective Factors Assessment Employed: No Interval History Chief Complaint "I'm okay". Review of Systems Sleep Information Total Hours of Sleep: 7.25 Sleep Comments: pt given trazodone per rn. pt on q-15 minute checks Meal Information Percent Meal Consumed - Breakfast: 50 Percent Meal Consumed - Lunch: 50 Percent Meal Consumed - Dinner: 50 Subjective Subjective Patient was seen & assessed and interval progress reviewed with treatment team nursing and social work Patient remains somewhat isolative in her room. Denies any hallucinations or suicidal ideation. Reports feeling better since having come down off methamphetamine use. Currently patient is reporting stable mood and is eager to start the next phase of her treatment in a rehab facility. She was compliant with her medications today and received dose of her long-acting Invega sustain a medication, 234 mg. No adverse effects reported or observed. Patient is eating and sleeping well without issue I spent 30 minutes with the patient, 50% of which was dedicated to counselling and coordination of care. Physical Exam Psychiatric Orientation: alert and oriented x 3 Apperance: appropriately dressed and appropriately groomed Eye Contact: + fair eye contact Motor Behavior: steady gait and station Speech: normal rate/rhythm/volume of speech Affect: + depressed affect and + flat affect Mood: + depressed mood Thought Process: goal directed thought process Thought Content: reality based without delusions Suicidal Thoughts: denies suicidal thoughts Homicidal Thoughts: denies homicidal thoughts Hallucinations: no auditory hallucinations and no visual hallucinations Cognition: recent memory grossly intact Estimated Intelligence: consistent with education level Insight: + fair insight Judgement: + poor judgement Vital Signs (Past 24 Hours) Last Vital Signs Temp 36.7 C 06/16/21 06:37 Pulse 83 06/16/21 06:37 Resp 16 06/16/21 06:37 BP 109/76 06/16/21 06:37 Pulse Ox 96 06/15/21 22:00 Results & Data ([facility]) Current Inpatient Medications Current Inpatient Medications: Current Inpatient Medications Acetaminophen (Acetaminophen 325 Mg Tab) 650 mg PO Q4H PRN PRN Reason: Headache or Minor Fever Stop: 07/13/21 17:34 Last Admin: 06/14/21 11:00 Dose: 650 mg Documented by: Al Hydrox/Mg Hydrox/Simethicone (Aluminum/Magnesium Susp 30 Ml Udc) 30 ml PO Q4H PRN PRN Reason: GI Upset Stop: 07/13/21 17:34 Aspirin (Aspirin 81 Mg Ectab) 81 mg PO DAILY [facility] Stop: 07/14/21 14:14 Last Admin: 06/16/21 08:51 Dose: 81 mg Documented by: Atorvastatin Calcium (Atorvastatin 40 Mg Tab) 80 mg PO QPM [facility] Stop: 07/14/21 20:59 Last Admin: 06/15/21 20:27 Dose: 80 mg Documented by: Benztropine Mesylate (Benztropine Mesylate 0.5 Mg Tab) 0.5 mg PO TID [facility] Stop: 07/14/21 13:59 Last Admin: 06/16/21 14:14 Dose: 0.5 mg Documented by: Bismuth Subsalicylate (Bismuth Subsalicylate Liqd 236 Ml) 15 ml PO PRN PRN PRN Reason: Loose Stool Stop: 07/13/21 17:34 Bupropion HCl (Bupropion Sr 150 Mg Tabcr) 150 mg PO DAILY [facility] Stop: 07/15/21 08:59 Last Admin: 06/16/21 08:51 Dose: 150 mg Documented by: Clopidogrel Bisulfate (Clopidogrel Bisulfate 75 Mg Tab) 75 mg PO QAM [facility] Stop: 07/14/21 14:29 Last Admin: 06/16/21 08:52 Dose: 75 mg Documented by: Gabapentin (Gabapentin 100 Mg Cap) 200 mg PO HS [facility] Stop: 07/14/21 21:59 Last Admin: 06/15/21 20:28 Dose: 200 mg Documented by: Hydroxyzine HCl (Hydroxyzine Hcl 25 Mg Tab) 50 mg PO HSZ PRN PRN Reason: Insomnia Stop: 07/13/21 17:34 Hydroxyzine HCl (Hydroxyzine Hcl 25 Mg Tab) 25 mg PO Q4H PRN PRN Reason: Anxiety Stop: 07/13/21 17:34 Last Admin: 06/14/21 17:13 Dose: 25 mg Documented by: Magnesium Hydroxide (Magnesium Hydroxide Susp 30 Ml Udc) 30 ml PO DAILY PRN PRN Reason: Constipation Stop: 07/13/21 17:34 Metoprolol Succinate (Metoprolol Succ 25mg Ext Rel Tab) 25 mg PO DAILY [facility] Stop: 07/15/21 08:59 Last Admin: 06/16/21 08:52 Dose: 25 mg Documented by: Miscellaneous (Remove Nicoderm Patch) 1 ea N/A DAILY@0859 [facility] Stop: 07/14/21 08:58 Last Admin: 06/16/21 08:50 Dose: 1 ea Documented by: Naltrexone HCl (Naltrexone Hcl 50 Mg Tab) 50 mg PO DAILY [facility] Stop: 07/15/21 08:59 Last Admin: 06/16/21 08:52 Dose: 50 mg Documented by: Nicotine (Nicotine 21 Mg/24 Hr Tdsy) 21 mg TD QAM [facility] Stop: 07/13/21 12:44 Last Admin: 06/16/21 08:52 Dose: 21 mg Documented by: Nicotine Polacrilex (Nicotine Polacrilex 2 Mg Gum) 1 piece MT PRN PRN PRN Reason: Nicotine Withdrawal Stop: 07/13/21 19:21 Pantoprazole Sodium (Pantoprazole 40 Mg Tab) 40 mg PO QAM [facility] Stop: 07/15/21 08:59 Last Admin: 06/16/21 08:53 Dose: 40 mg Documented by: Sodium Chloride (Sodium Chloride 0.65% Na Soln 45 Ml ([place])) 1 - 2 sprays NA PRN PRN PRN Reason: Nasal Dryness/Congestion Stop: 07/13/21 17:34 Trazodone HCl (Trazodone Hcl 100 Mg Tab) 100 mg PO HS [facility] Stop: 07/14/21 21:59 Last Admin: 06/15/21 20:29 Dose: 100 mg Documented by: Vitamin D (Cholecalciferol 1,000 Units 25 Mcg Tab) 5,000 units PO DAILY [facility] Stop: 07/15/21 08:59 Last Admin: 06/16/21 08:51 Dose: 5,000 units Documented by: Mental Health & Subst Abuse Tx Psychiatrist Name of Psychiatrist: Slava Cullen Psychiatrist's Psychiatric Appointment Comment: [id number] [facility] Therapist Name of Therapist: Artem Marmolejo Therapist's Date of Therapist Appointment: 06/16/21 Therapy Appointment Comment: [address] [facility] [address] Swabber Name of Swabber: [facility] Phone Number for Swabber: [phone] Case Management Appointment Comment: [address] [facility], [facility] [address] Post Discharge Appointments Primary Care Physician Name Of Family Doctor: HERMELINDA Ochoa Primary Care Provider Appointment Comment: [id number] [facility] Contact Information Discharge Discharge Address: [address] [place] [address], [place] [address] (1) Schizoaffective disorder Schizoaffective disorder type: unspecified Qualified Code(s): F25.9 - Schizoaffective disorder, unspecified
[2021-06-16] MEDS: traZODone HCL 100 MG TAB PO SCH (20:55)
[2021-06-16] MEDS: GABAPENTIN 100 MG CAP PO SCH (20:55)
[2021-06-16] MEDS: ATORVASTATIN 40 MG TAB PO SCH (20:55)
[2021-06-17] MEDS: METOPROLOL SUCC 25MG EXT REL TAB PO SCH (08:51)
[2021-06-17] MEDS: buPROPion SR 150 MG TABCR PO SCH (08:53)
[2021-06-17] MEDS: BENZTROPINE MESYLATE 0.5 MG TAB PO SCH ×3 (08:53→20:29)
[2021-06-17] MEDS: ASPIRIN 81 MG ECTAB PO SCH (08:53)
[2021-06-17] MEDS: CLOPIDOGREL BISULFATE 75 MG TAB PO SCH (08:53)
[2021-06-17] MEDS: PANTOprazole 40 MG TAB PO SCH (08:54)
[2021-06-17] MEDS: CHOLECALCIFEROL 1,000 UNITS 25 MCG TAB PO SCH (08:54)
[2021-06-17] MEDS: NALTREXONE HCL 50 MG TAB PO SCH (08:54)
[2021-06-17] MEDS: NICOTINE 21 MG/24 HR TDSY TD SCH (08:59)
--- NOTE | 2021-06-17 12:06 | Psychiatric Progress Note ---
Date of Service June 17, 2021 Impression / Recommendations Impression This is a 51-year-old female with history of schizoaffective illness who presented in a decompensated state likely secondary to medication noncompliance and substance use. Patient will benefit from inpatient hospitalization for purposes of safety, stabilization, medication management. Patient in agreement to restart her home medications at safe doses as well as administer long-acting injectable and plan for discharge to rehab facility. (1) Polysubstance (excluding opioids) dependence: (2) Schizoaffective disorder: The patient was admitted to the [facility] on every 15 minute checks (behavioral with suicide precautions for safety. The patient will participate in group, recreational, and milieu therapies and will be offered additional individual and family sessions as clinically appropriate. 06/17/2021we continue to await safe discharge planning. 06/16/2021atient continues to display stable mood. We will plan for discharge to rehab once bed is available. 06/15/2021--Patient making incremental progress. Will plan on giving Invega long acting medication tomorrow. 06/14/2021we will plan to restart patient's medications including Butrans, Plavix, metoprolol as well as administer long-acting Invega in the coming days. Protective Factors Assessment Employed: No Interval History Chief Complaint "I am okay just tired". Review of Systems Sleep Information Total Hours of Sleep: 7.5 Sleep Comments: pt given trazodone per rn. pt on q-15 minute checks Meal Information Percent Meal Consumed - Breakfast: 40 Percent Meal Consumed - Lunch: 50 Percent Meal Consumed - Dinner: 50 Subjective Subjective Patient was seen & assessed and interval progress reviewed with treatment team nursing and social work Patient continues to deny any hallucinations. She does report feeling depressed and eager to continue on her journey with sobriety. Denies any side effects of the recent Invega injection, aside from some injection site soreness which she was told is to be expected. She is eating okay and sleeping okay. Continues to maintain her ADLs and is calm and cooperative with peers. Patient remains in good behavioral control I spent 30 minutes with the patient, 50% of which was dedicated to counselling and coordination of care. Physical Exam Psychiatric Orientation: alert and oriented x 3 Apperance: appropriately dressed and appropriately groomed Eye Contact: + fair eye contact Motor Behavior: steady gait and station Speech: normal rate/rhythm/volume of speech Affect: + depressed affect and + flat affect Mood: + depressed mood Thought Process: goal directed thought process Thought Content: reality based without delusions Suicidal Thoughts: denies suicidal thoughts Homicidal Thoughts: denies homicidal thoughts Hallucinations: no auditory hallucinations and no visual hallucinations Cognition: recent memory grossly intact Estimated Intelligence: consistent with education level Insight: + fair insight Judgement: + poor judgement Vital Signs (Past 24 Hours) Last Vital Signs Temp 36.6 C 06/17/21 06:44 Pulse 81 06/17/21 08:51 Resp 18 06/17/21 06:44 BP 93/68 L 06/17/21 08:51 Pulse Ox 96 06/15/21 22:00 Results & Data ([facility]) Current Inpatient Medications Current Inpatient Medications: Current Inpatient Medications Acetaminophen (Acetaminophen 325 Mg Tab) 650 mg PO Q4H PRN PRN Reason: Headache or Minor Fever Stop: 07/13/21 17:34 Last Admin: 06/14/21 11:00 Dose: 650 mg Documented by: Al Hydrox/Mg Hydrox/Simethicone (Aluminum/Magnesium Susp 30 Ml Udc) 30 ml PO Q4H PRN PRN Reason: GI Upset Stop: 07/13/21 17:34 Aspirin (Aspirin 81 Mg Ectab) 81 mg PO DAILY [facility] Stop: 07/14/21 14:14 Last Admin: 06/17/21 08:53 Dose: 81 mg Documented by: Atorvastatin Calcium (Atorvastatin 40 Mg Tab) 80 mg PO QPM [facility] Stop: 07/14/21 20:59 Last Admin: 06/16/21 20:55 Dose: 80 mg Documented by: Benztropine Mesylate (Benztropine Mesylate 0.5 Mg Tab) 0.5 mg PO TID [facility] Stop: 07/14/21 13:59 Last Admin: 06/17/21 08:53 Dose: 0.5 mg Documented by: Bismuth Subsalicylate (Bismuth Subsalicylate Liqd 236 Ml) 15 ml PO PRN PRN PRN Reason: Loose Stool Stop: 07/13/21 17:34 Bupropion HCl (Bupropion Sr 150 Mg Tabcr) 150 mg PO DAILY [facility] Stop: 07/15/21 08:59 Last Admin: 06/17/21 08:53 Dose: 150 mg Documented by: Clopidogrel Bisulfate (Clopidogrel Bisulfate 75 Mg Tab) 75 mg PO QAM [facility] Stop: 07/14/21 14:29 Last Admin: 06/17/21 08:53 Dose: 75 mg Documented by: Gabapentin (Gabapentin 100 Mg Cap) 200 mg PO HS [facility] Stop: 07/14/21 21:59 Last Admin: 06/16/21 20:55 Dose: 200 mg Documented by: Hydroxyzine HCl (Hydroxyzine Hcl 25 Mg Tab) 50 mg PO HSZ PRN PRN Reason: Insomnia Stop: 07/13/21 17:34 Hydroxyzine HCl (Hydroxyzine Hcl 25 Mg Tab) 25 mg PO Q4H PRN PRN Reason: Anxiety Stop: 07/13/21 17:34 Last Admin: 06/14/21 17:13 Dose: 25 mg Documented by: Magnesium Hydroxide (Magnesium Hydroxide Susp 30 Ml Udc) 30 ml PO DAILY PRN PRN Reason: Constipation Stop: 07/13/21 17:34 Metoprolol Succinate (Metoprolol Succ 25mg Ext Rel Tab) 25 mg PO DAILY [facility] Stop: 07/15/21 08:59 Last Admin: 06/17/21 08:51 Dose: Not Given Documented by: Miscellaneous (Remove Nicoderm Patch) 1 ea N/A DAILY@0859 [facility] Stop: 07/14/21 08:58 Last Admin: 06/17/21 08:59 Dose: Not Given Documented by: Naltrexone HCl (Naltrexone Hcl 50 Mg Tab) 50 mg PO DAILY [facility] Stop: 07/15/21 08:59 Last Admin: 06/17/21 08:54 Dose: 50 mg Documented by: Nicotine (Nicotine 21 Mg/24 Hr Tdsy) 21 mg TD QAM [facility] Stop: 07/13/21 12:44 Last Admin: 06/17/21 08:59 Dose: 21 mg Documented by: Nicotine Polacrilex (Nicotine Polacrilex 2 Mg Gum) 1 piece MT PRN PRN PRN Reason: Nicotine Withdrawal Stop: 07/13/21 19:21 Pantoprazole Sodium (Pantoprazole 40 Mg Tab) 40 mg PO QAM [facility] Stop: 07/15/21 08:59 Last Admin: 06/17/21 08:54 Dose: 40 mg Documented by: Sodium Chloride (Sodium Chloride 0.65% Na Soln 45 Ml ([place])) 1 - 2 sprays NA PRN PRN PRN Reason: Nasal Dryness/Congestion Stop: 07/13/21 17:34 Trazodone HCl (Trazodone Hcl 100 Mg Tab) 100 mg PO HS [facility] Stop: 07/14/21 21:59 Last Admin: 06/16/21 20:55 Dose: 100 mg Documented by: Vitamin D (Cholecalciferol 1,000 Units 25 Mcg Tab) 5,000 units PO DAILY [facility] Stop: 07/15/21 08:59 Last Admin: 06/17/21 08:54 Dose: 5,000 units Documented by: Mental Health & Subst Abuse Tx Psychiatrist Name of Psychiatrist: Slava Cullen Psychiatrist's Psychiatric Appointment Comment: [phone] [facility] Therapist Name of Therapist: Artem Marmolejo Therapist's Date of Therapist Appointment: 06/16/21 Therapy Appointment Comment: [address] [facility], [facility] [address] Environmental Specialist Name of Environmental Specialist: [facility] Phone Number for Environmental Specialist: [phone] Case Management Appointment Comment: [address] [facility], [facility] Post Discharge Appointments Primary Care Physician Name Of Family Doctor: HERMELINDA Ochoa Primary Care Provider Appointment Comment: [phone] [facility] Contact Information Discharge Discharge Address: [address] [place] [address], [place] [address] (1) Schizoaffective disorder Schizoaffective disorder type: unspecified Qualified Code(s): F25.9 - Schizoaffective disorder, unspecified
[2021-06-17] MEDS: GABAPENTIN 100 MG CAP PO SCH (20:29)
[2021-06-17] MEDS: ATORVASTATIN 40 MG TAB PO SCH (20:29)
[2021-06-17] MEDS: traZODone HCL 100 MG TAB PO SCH (20:29)
[2021-06-18] MEDS: ASPIRIN 81 MG ECTAB PO SCH (08:51)
[2021-06-18] MEDS: NALTREXONE HCL 50 MG TAB PO SCH (08:51)
[2021-06-18] MEDS: BENZTROPINE MESYLATE 0.5 MG TAB PO SCH ×2 (08:51→12:57)
[2021-06-18] MEDS: CLOPIDOGREL BISULFATE 75 MG TAB PO SCH (08:51)
[2021-06-18] MEDS: CHOLECALCIFEROL 1,000 UNITS 25 MCG TAB PO SCH (08:51)
[2021-06-18] MEDS: METOPROLOL SUCC 25MG EXT REL TAB PO SCH (08:52)
[2021-06-18] MEDS: PANTOprazole 40 MG TAB PO SCH (08:52)
[2021-06-18] MEDS ORDERED: buPROPion SR 150 MG TABCR PO SCH (09:00)
[2021-06-18] MEDS: NICOTINE 21 MG/24 HR TDSY TD SCH (09:02)
[2021-06-18 09:35] LABS: Amphetamine Urine, Confirm 503 ng/mL (<250); MDA negative; MDEA negative; MDMA (Ecstasy) Urine, Confirm negative; Marijuana Quant, GCMS Urine 23 ng/mL (<5); Methamphetamine, Ur Confirm 4650 ng/mL (<250)
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
== END 2021-06-18 14:00 | disposition alcohol treatment (31) | DRG 885 ==
LOC: ED 11:45 → 3S 17:35

== ENCOUNTER 2024-04-24 05:49 | Observation (INO) ==
--- NOTE | 2024-03-28 13:02 | PAT Medication Instructions ---
Medication Instructions Date of Service March 28, 2024 Home Medications Medication Instructions Recorded atorvastatin 80 mg tablet (Lipitor) 80 mg PO QPM #90 tabs 12/15/21 clopidogrel 75 mg tablet (Plavix) 75 mg PO QAM #90 tabs 05/20/22 metoprolol succinate 25 mg 25 mg PO DAILY #90 tabs 05/20/22 tablet,extended release 24 hr (Toprol XL) nitroglycerin 0.3 mg sublingual 0.3 mg sublingual Q5M PRN chest 05/20/22 tablet pain #7 tabs cyclobenzaprine 10 mg tablet 10 mg PO HS #30 tabs 10/06/23 tizanidine 4 mg tablet 4 mg PO BID PRN muscle spasticity 02/15/24 #30 tabs benztropine 0.5 mg tablet 0.5 mg PO TID bupropion HCl 150 mg tablet,12 hr sustained-release (Wellbutrin SR) 300 mg PO QAM atorvastatin 80 mg tablet (Lipitor) 80 mg PO QPM clopidogrel 75 mg tablet (Plavix) 75 mg PO QAM metoprolol succinate 25 mg tablet,extended release 24 hr (Toprol XL) 25 mg PO DAILY nitroglycerin 0.3 mg sublingual tablet 0.3 mg sublingual Q5M PRN chest pain hydroxyzine HCl 50 mg tablet 50 mg PO QAM levonorgestrel 21 mcg/24 hr (up to 8 years) 52 mg intrauterine device (Mirena) 1 device intrauterine UD cyclobenzaprine 10 mg tablet 10 mg PO HS gabapentin 300 mg capsule 800 mg PO BID trazodone 100 mg tablet 200 mg PO HS tizanidine 4 mg tablet 4 mg PO BID PRN muscle spasticity lamotrigine 100 mg tablet 100 mg PO HS naltrexone microspheres 380 mg intramuscular suspension,extended release (Vivitrol) 380 mg IM UD paliperidone palm (6 month) 1,560 mg/5 mL intramuscular syringe ([facility] 1,560 mg IM UD sertraline 100 mg tablet 200 mg PO HS Continue as directed metoprolol succinate 25 mg tablet,extended release 24 hr (Toprol XL) 25 mg PO DAILY nitroglycerin 0.3 mg sublingual tablet 0.3 mg sublingual Q5M PRN chest pain (if needed) levonorgestrel 21 mcg/24 hr (up to 8 years) 52 mg intrauterine device (Mirena) 1 device intrauterine UD naltrexone microspheres 380 mg intramuscular suspension,extended release (Vivit rol) 380 mg IM UD paliperidone palm (6 month) 1,560 mg/5 mL intramuscular syringe (Jean Delgado) 1,560 mg IM UD ASK your prescriber and surgeon clopidogrel 75 mg tablet (Plavix) 75 mg PO QAM (will need to hold Plavix/clopidogrel for at least 7 days prior to surgery in order to get spinal anesthesia) DO NOT take the morning of surgery hydroxyzine HCl 50 mg tablet 50 mg PO QAM Take morning of surgery With a small sip of water, OTHERWISE NOTHING TO EAT OR DRINK AFTER MIDNIGHT: benztropine 0.5 mg tablet 0.5 mg PO TID bupropion HCl 150 mg tablet,12 hr sustained-release (Wellbutrin SR) 300 mg PO QAM gabapentin 300 mg capsule 800 mg PO BID tizanidine 4 mg tablet 4 mg PO BID PRN muscle spasticity (if needed) Take evening before surgery benztropine 0.5 mg tablet 0.5 mg PO TID atorvastatin 80 mg tablet (Lipitor) 80 mg PO QPM cyclobenzaprine 10 mg tablet 10 mg PO HS gabapentin 300 mg capsule 800 mg PO BID trazodone 100 mg tablet 200 mg PO HS tizanidine 4 mg tablet 4 mg PO BID PRN muscle spasticity (if needed) lamotrigine 100 mg tablet 100 mg PO HS sertraline 100 mg tablet 200 mg PO HS Other Notes If you have any questions please call us at [phone] or [phone] or [phone] or [phone]
--- NOTE | 2024-04-09 11:07 | Anesthesiology Consultation ---
Date of Service April 09, 2024 Assessment & Plan (1) Encounter for pre-operative examination: Chart Review Chart Review: Acceptable Risk for Surgery (pending PCP optimization re: cough and SOB ) and Patient seen in Pre Admission Testing - Please send optimization form to PCP re: cough/new onset SOB ([place]- Dr Hough) - awaiting response (seeing PCP 04/19/24- PCP is trying to move appt up sooner) - Check test AM DOS - Patient is NOT an OPJ candidate (currently 23 hour obs) Per PAT appt on 04/09/24, cold symptoms (dry cough, runny nose) started around 04/25/24- symptoms improved. Still has GODOY and cough/wheezing. Niece had similar symptoms. No recent illness/disease positive tests. Will leave to surgeon's discretion if preop Covid testing needed Teaching & Discussion Pre-Anesthesia Teaching/Discussion Notes: Instructed NPO after midnight before surgery,except medications with 15 cc of water. Medication instructions provided according to the [facility] guidelines. History Surgery Operation Date: 04/24/24 10:40 Proposed Procedures p Left Total Hip Arthroplasty - Natalio Dawkins MD Height/Weight Height: 5 ft 8 in Weight: 97.3 kg Allergies Allergy/AdvReac Type Severity Reaction Status Date / Time No Known Allergies Allergy Verified 03/26/24 10:42 Medications Home Medications Medication Instructions Recorded Confirmed Last Taken benztropine 0.5 mg tablet 0.5 mg PO TID 04/02/21 03/26/24 3 Days Ago ~09/26/21 bupropion HCl 150 mg tablet,12 hr 300 mg PO QAM 09/29/21 03/26/24 3 Days Ago sustained-release (Wellbutrin SR) ~09/26/21 atorvastatin 80 mg tablet (Lipitor) 80 mg PO QPM #90 tabs 12/15/21 03/26/24 Unknown clopidogrel 75 mg tablet (Plavix) 75 mg PO QAM #90 tabs 05/20/22 03/26/24 Unknown metoprolol succinate 25 mg 25 mg PO DAILY #90 tabs 05/20/22 03/26/24 Unknown tablet,extended release 24 hr (Toprol XL) nitroglycerin 0.3 mg sublingual 0.3 mg sublingual Q5M PRN chest 05/20/22 03/26/24 Unknown tablet pain #7 tabs hydroxyzine HCl 50 mg tablet 50 mg PO QAM 08/16/23 03/26/24 Unknown levonorgestrel 21 mcg/24 hr (up to 1 device intrauterine UD 08/16/23 03/26/24 Unknown 8 years) 52 mg intrauterine device (Mirena) cyclobenzaprine 10 mg tablet 10 mg PO HS #30 tabs 10/06/23 03/26/24 Unknown gabapentin 300 mg capsule 800 mg PO BID 10/06/23 03/26/24 Unknown trazodone 100 mg tablet 200 mg PO HS 10/06/23 03/26/24 Unknown tizanidine 4 mg tablet 4 mg PO BID PRN muscle spasticity 02/15/24 03/26/24 Unknown #30 tabs lamotrigine 100 mg tablet 100 mg PO HS 03/26/24 03/26/24 Unknown naltrexone microspheres 380 mg 380 mg IM UD 03/26/24 03/26/24 Unknown intramuscular suspension,extended release (Vivitrol) paliperidone palm (6 month) 1,560 1,560 mg IM UD 03/26/24 03/26/24 Unknown mg/5 mL intramuscular syringe ([facility]) sertraline 100 mg tablet 200 mg PO HS 03/26/24 03/26/24 Unknown Wheeled Walker #1 ea 04/09/24 Unknown Past Medical History Medical History Anxiety and depression Auditory hallucinations chronic history- no hallucinations re: hurting others or self chronic and stable - follows with psych- feels controlled per patient Chronic pain Depression with suicidal ideation hx Hx of gastroesophageal reflux (GERD) well controlled and stable gets occ reflux- no medications at this time Hyperlipidemia 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 Low back pain Medical non-compliance hx Schizoaffective disorder, depressive type hx STEMI (ST elevation myocardial infarction) ~2013, cardiac cath w/2 stents placed, [facility] follows only with PCP Thyroid nodule had followed with ENT in the past TIA (transient ischemic attack) ~ Most recent 2018, no residual effects Also hx of TIAs 2010, 2011, 2014 per records Exercise / Class Metabolic Activity III < 4 Walking/Shop/Light housework (no chest pain with flat surface ambulation ; increased MERVAT the past 2 weeks (see ROS)) Past Family History Family History Mother Diabetes Father , age 70 of pancreatic cancer. Heart disease Hypertension Diabetes Pancreatic cancer Prostate cancer Grandmother (Maternal) Breast cancer Other Cancer Denies family history of Ovarian cancer Colorectal cancer Past Surgical History Surgical History H/O heart artery stent ~2016, [facility], x2 stents; does not f/u cardio anymore. Hx of cardiac cath ~2016, [facility], x2 stents; does not f/u cardio anymore. Past Anesthesia History No Hx of Anesthesia Complications and No Family Hx of Anesthesia Complications History of PONV No Hx of PONV and No Hx of Motion Sickness Social History Smoking Status: Current every day smoker tobacco type: cigarettes Smoking cigarettes per day: 10 cigs/day Do You Dip or Chew Tobacco: No Hx Alcohol Use: Yes Alcohol type: beer alcohol intake frequency: 3 or more drinks per day Alcohol Intake Frequency Comment: 6 pack per day Hx Substance Use: Yes substance use type: marijuana and methamphetamine Substance Use Type Other:: states " i just got off of street drugs, but rather not say which ones" Last Used Substance: Days (ago) Last Used Substance Other:: last use-meth 9 months ago; marijuana-uses ~2x weekly Review of Systems - SOB - x 1 month - only with exertion- increased coughing and wheezing x 2 weeks - getting worse. GODOY with short distance ambulation. Did have recent cold symptoms approximately two weeks ago- cold symptoms improved (rhinitis) but cough, breathing and SOB persist. Patient denies chest pain, SOB at rest, palpitations. No hx of seizures, apnea/snoring. No hx of blood clots or blood transfusions Physical Exam Vital Signs VITALS BP 116/77 P 68 TEMP 98.2 SP02 94% on RA RESP 16 Constitutional no acute distress ENMT Mouth: no TMJ clicking Thyromental Distance: > or= 3.5 Finger Breadths (3.5) Mallampati Class: III Missing all teeth Neck neck extension not limited Respiratory normal respiratory effort; no respiratory distress Auscultation: + wheezes Mild wheezing otherwise CTA Breath sounds diminished throughout Cardiovascular Rate/Rhythm: regular rate and regular rhythm Heart Sounds: no murmur Vessels: no carotid bruit Musculoskeletal Spine: no pain with cervical ROM Extremities: extremities normal to inspection Psychiatric Orientation: alert Lab Results Anesthesia Preop Results Results Anesthesia Widget: WBC 7.62 K/ul (4.8-10.8) 04/09/24 Hgb 13.1 g/dl (12.0-16.0) 04/09/24 Hct 39.5 % (37.0-47.0) 04/09/24 Plt 323 K/uL (130-400) 04/09/24 Na 138 mmol/L (136-145) 04/09/24 K 4.0 mmol/L (3.5-5.1) 04/09/24 Cl 105 mmol/L (98-107) 04/09/24 CO2 28 mmol/L (21-32) 04/09/24 BUN 3 mg/dl (6-23) L 04/09/24 Creat 0.85 mg/dl (0.6-1.2) 04/09/24 Glucose Level 107 mg/dl (70-99(Fasting)) H 04/09/24 PT 10.4 Seconds (9.0-12.0) 04/09/24 PTT 24 Seconds (21-31) 04/09/24 INR 1.0 (0.9-1.1) 04/09/24 Blood Type A Positive 04/09/24 Antibody Screen NEGATIVE 04/09/24 Testing Electrocardiogram Date: 04/09/24 Findings: + NSR @ (63bpm) Prolonged QT When compared to EKG from April 02, 2021- vent rate has decreased by 42bpm per cardio Chest X-Ray Date: 04/09/24 Findings: + NAD Echocardiogram Date: 01/09/19 EF: 55-60% LV Function: normal RWMA: + none Other Findings: no LVH Valvular Disease: + MR (mild ) Hyper mobile intra-atrial septum Injection of contrast documented no interatrial shunt Other Testing Head/Neck CTA 01/08/2019= There is no hemorrhage, mass effect, or evidence of acute territorial ischemia by CT criteria noting angiographic technique. Unremarkable CT angiogram of the brain. Unremarkable CT angiogram of the neck. Brain MRI 01/08/2019= No acute intracranial findings. No change in appearance of the brain since MRI November 25, 2015. Head CT 01/08/2019= No acute intracranial abnormality.
--- NOTE | 2024-04-21 10:34 | History & Physical Report ---
Date of Service April 21, 2024 Assessment & Plan (1) 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 of left hip: 54-year-old female with multiple medical comorbidities with advanced left hip arthritis. She is also got some underlying back issues but most this pain seems to be coming from her hip. She is failed conservative measures. She like to have her hip replaced. Plan: Orgtami to take her to the operating do a left total hip replacement. The risks Mente this procedure explained to the patient in depth include but not limited to DVT PE infection neurological injury vascular bleeding palm pain limb range of motion stiffness fairly of her symptoms persistent pain dislocation fracture excetra. Patient understands and desires to proceed. Informed consent was obtained. I did explain to her in depth the importance of a postoperative hip precautions. Is got multiple psychiatric issues and these need to be managed very carefully and aggressively. She is planning. Discharge to home and home health program. Will plan on DVT prophylaxis including thigh- high teds, SCDs, and back on her Plavix. She knows to hold her Plavix 7 days preop. We may use a dual mobility cup and liner to maximize her stability. (2) Schizoaffective disorder: (3) Anxiety and depression: (4) GERD (gastroesophageal reflux disease): (5) Hyperlipidemia LDL goal <70: (6) TIA (transient ischemic attack): (7) Alcohol abuse: (8) Coronary artery disease, occlusive: History of Present Illness Chief Complaint: . Left hip and groin pain. Primary Care Provider: Sabiha Hough DO . The patient is a 54-year-old female with multiple medical comorbidities who presents now for surgical treatment of her left hip. Got a long history of left hip pain discomfort is gradually gotten worse over time. She been seeing Dr. Sameer saldana for back issues but he is felt most. Pains come from her hip. She describes thigh pain groin pain that radiates down to her knee. Pain increases as the day goes on. She limps and limps more as the day goes on. She takes medicines with minimal relief. Of note, the patient does have a history of psychological disorders. She got schizoaffective disorder as well as some anxiety and depression. This is managed by her medical doctor. Allergies Allergy/AdvReac Type Severity Reaction Status Date / Time No Known Allergies Allergy Verified 03/26/24 10:42 Home Medications Medication Instructions Recorded Confirmed Type benztropine 0.5 mg tablet 0.5 mg PO TID 04/02/21 03/26/24 History bupropion HCl 150 mg tablet,12 hr 300 mg PO QAM 09/29/21 03/26/24 History sustained-release (Wellbutrin SR) atorvastatin 80 mg tablet (Lipitor) 80 mg PO QPM #90 tabs 12/15/21 03/26/24 Rx clopidogrel 75 mg tablet (Plavix) 75 mg PO QAM #90 tabs 05/20/22 03/26/24 Rx metoprolol succinate 25 mg 25 mg PO DAILY #90 tabs 05/20/22 03/26/24 Rx tablet,extended release 24 hr (Toprol XL) nitroglycerin 0.3 mg sublingual 0.3 mg sublingual Q5M PRN chest 05/20/22 03/26/24 Rx tablet pain #7 tabs hydroxyzine HCl 50 mg tablet 50 mg PO QAM 08/16/23 03/26/24 History levonorgestrel 21 mcg/24 hr (up to 1 device intrauterine UD 08/16/23 03/26/24 History 8 years) 52 mg intrauterine device (Mirena) cyclobenzaprine 10 mg tablet 10 mg PO HS #30 tabs 10/06/23 03/26/24 Rx gabapentin 300 mg capsule 800 mg PO BID 10/06/23 03/26/24 History trazodone 100 mg tablet 200 mg PO HS 10/06/23 03/26/24 History tizanidine 4 mg tablet 4 mg PO BID PRN muscle spasticity 02/15/24 03/26/24 Rx #30 tabs lamotrigine 100 mg tablet 100 mg PO HS 03/26/24 03/26/24 History naltrexone microspheres 380 mg 380 mg IM UD 03/26/24 03/26/24 History intramuscular suspension,extended release (Vivitrol) paliperidone palm (6 month) 1,560 1,560 mg IM UD 03/26/24 03/26/24 History mg/5 mL intramuscular syringe (Invega Hafyera) sertraline 100 mg tablet 200 mg PO HS 03/26/24 03/26/24 History Wheeled Walker #1 ea 04/09/24 Rx Past Med/Surg History Problem List Encounter for pre-operative examination 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 of left hip Left hip pain Low back pain Vitamin B12 deficiency Spinal stenosis, lumbar region with neurogenic claudication Lumbar radiculopathy Chronic pain Polysubstance (excluding opioids) dependence Vitamin D deficiency disease (Acute) Abnormal brain MRI (Acute) Nicotine dependence (Acute) Thyroid nodule (Acute) Hypertension (Chronic) Prolonged QT interval (Chronic) B12 deficiency (Chronic) Schizoaffective disorder (Chronic) Anxiety and depression (Chronic) GERD (gastroesophageal reflux disease) Hyperlipidemia LDL goal <70 (Chronic) TIA (transient ischemic attack) (Chronic) 2016 Alcohol abuse (Chronic) Coronary artery disease, occlusive (Chronic 03/31/14) s/p stents 2016 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 Thyroid nodule had followed with ENT in the past Low back pain Hypertension Hyperlipidemia Hx of gastroesophageal reflux (GERD) well controlled and stable gets occ reflux- no medications at this time Chronic pain Anxiety and depression Depression with suicidal ideation hx Auditory hallucinations chronic history- no hallucinations re: hurting others or self chronic and stable - follows with psych- feels controlled per patient TIA (transient ischemic attack) ~ Most recent 2018, no residual effects Also hx of TIAs 2010, 2011, 2014 per records Schizoaffective disorder, depressive type hx Medical non-compliance hx STEMI (ST elevation myocardial infarction) ~2013, cardiac cath w/2 stents placed, [facility] follows only with PCP Surgical History Hx of cardiac cath ~2015, [facility], x2 stents; does not f/u cardio anymore. H/O heart artery stent ~2015, [facility], x2 stents; does not f/u cardio anymore. Family History Mother Diabetes Father , age 70 of pancreatic cancer. Heart disease Hypertension Diabetes Pancreatic cancer Prostate cancer Grandmother (Maternal) Breast cancer Other Cancer Denies family history of Ovarian cancer Colorectal cancer Social History Smoking Status: Current every day smoker Tobacco Type: Cigarettes Cigarettes Per Day: 10 cigs/day; Second Hand Exposure: No; Do You Dip or Chew Tobacco: No; Hx Alcohol Use: Yes Alcohol type: beer Alcohol Intake Frequency Comment: Three 32 ounce cans of Monae Light beer per day Hx Substance Use: Yes Non-Prescribed Medications: Marijuana Last Used Substance: Days (ago) Last Used Substance Other:: last use-meth 9 months ago; marijuana-uses ~2x weekly Substance Use Type Other:: states " i just got off of street drugs, but rather not say which ones" Preferred Language: Spanish Communication Ability: Effective Visual Impairment: No Limitations Hearing Ability: Normal Medical Records Clerk Required: No Beliefs That Will Affect Care: None Current Living Situation: Alone Current Living Situation Comment: will be staying with mom after surgery current occupational status: previously employed current occupation: 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 Feels Safe at Home: Yes Assistive Devices: Cane Review of Systems All systems reviewed & are unremarkable except as noted in HPI & below. Physical Exam . Physical examination reveals a relatively pleasant middle-age female. She looks older than her stated age. Examination left hip reveal patient walks with a bit of a limp. Her leg lengths appear pretty equal clinically. She does have stiffness and pain with any type of hip motion. She can internally rotate to neutral. Negative straight leg raise. She is neurologically intact. Constitutional WD/WN, vitals as above Respiratory normal respiratory effort, lungs clear to auscultation Cardiovascular RRR, no murmur, no edema Gastrointestinal (Abdomen) normal bowel sounds, soft, nontender, no hepatosplenomegaly Results & Data Results & Data Laboratory Results . Diagnostic Findings . X-rays of the left hip were reviewed. Shows advanced left hip arthritis. She got complete loss of her superior joint space. Discussed the cystic changes in the femoral head as well as the acetabulum. Bone density looks pretty good otherwise. PG Care Time/CCT Total # of Minutes Spent Total Time Spent with Patient: Total time spent is greater than 50% in coordination of care (as documented) at patient's floor/unit and/or counseling patient: Coding Level of Care Code None Diagnoses 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 of left hip M16.12 Schizoaffective disorder, depressive type F25.9 Schizoaffective disorder type: unspecified Anxiety and depression F41.9; F32.9 GERD (gastroesophageal reflux disease) K21.9 Hyperlipidemia LDL goal <70 E78.5 TIA (transient ischemic attack) G45.9 Alcohol abuse F10.10 Coronary artery disease, occlusive I25.10 (2) Schizoaffective disorder Schizoaffective disorder type: unspecified Qualified Code(s): F25.9 - Schizoaffective disorder, unspecified
[2024-04-24] MEDS: FAMOTIDINE 20 MG TAB PO SCH (06:26)
[2024-04-24] MEDS: LR 60ML/HR IV SCH (06:26)
[2024-04-24] MEDS: Scopolamine 1 MG TDSY TD SCH (06:26)
[2024-04-24] MEDS: METOCLOPRAMIDE HCL 10 MG TABLET PO SCH (06:26)
[2024-04-24] MEDS: CeleBREX 200 MG CAP PO SCH (06:26)
[2024-04-24] MEDS: ACETAMINOPHEN 500 MG TAB PO SCH ×2 (06:26→14:13)
[2024-04-24] MEDS ORDERED: ROPIVACAINE 0.5% 5 MG/ML 30 ML VIAL ONE (06:32)
[2024-04-24] MEDS: dexAMETHasone**PF** 10 MG/ML VIAL IV SCH (06:37)
[2024-04-24] MEDS: LR 500ML BOLUS, THEN 15ML/HR IV SCH (06:37)
--- NOTE | 2024-04-24 06:49 | History & Physical Bridge Note ---
Date of Service April 24, 2024 History & Physical Bridge Note I have examined the patient, reviewed the History & Physical and in the interval since the performance of the History & Physical I have noted the following changes of clinical significance: no changes noted
[2024-04-24 06:50] LABS: Amphetamines+Metham, Urine Neg (Neg); Barbiturates, Urine Neg (Neg); Benzodiazepine, Urine Neg (Neg); Cocaine, Urine Neg (Neg); Fentanyl, Urine Neg (Neg); MDMA (Ecstacy), Urine Pos (Neg); Marijuana, Urine Pos (Neg); Methadone, Urine Neg (Neg); Opiate, Urine Neg (Neg); Phencyclidine, Urine Neg (Neg)
[2024-04-24] MEDS ORDERED: KETOROLAC 30 MG/ML VIAL IV PRN (08:00)
[2024-04-24] MEDS ORDERED: HYDROmorphone INJ 1 MG/ML SYRINGE IV PRN (08:00)
[2024-04-24] MEDS ORDERED: ePHEDrine sulfate 50 MG/ML AMP IV PRN (08:00)
[2024-04-24] MEDS ORDERED: ONDANSETRON INJ 2 MG/ML 2 ML VIAL IV PRN ×2 (08:00→11:12)
[2024-04-24] MEDS ORDERED: ATROPINE SULFATE 0.1 MG/ML 10ML SYR IV PRN (08:00)
[2024-04-24] MEDS: TRANEXAMIC ACID 1,000 MG **IV Pre-op IV SCH (08:15)
[2024-04-24] MEDS ORDERED: MIDAZOLAM HCL 1 MG/ML 2ML VIAL ONE (08:22)
[2024-04-24] MEDS ORDERED: fentaNYL citrate PF 100 MCG/2 ML VIAL ONE (08:23)
[2024-04-24] MEDS ORDERED: KETAMINE HCL 10MG/ML SYR ONE (08:23)
[2024-04-24] MEDS: ceFAZolin 2000MG 2,000 MG/15 ML SYR IV SCH ×2 (08:43→15:50)
[2024-04-24] MEDS: BUPIVACAINE/EPINEPHRINE 0.5% MPF 1:200,000 30 ML VIAL ONE (09:15)
[2024-04-24] MEDS ORDERED: PROPOFOL IV EMULSION 10 MG/ML 100 ML VIAL IV ONE (09:46)
--- NOTE | 2024-04-24 10:06 | Operative Report ---
PG Post Operative Report Pre & Post Diagnosis Operation Date: 04/24/24 08:50 Pre-Op Diagnosis: Degenerative Joint Disease Hip Left Post-Op Diagnosis: Degenerative Joint Disease Hip Left I identified the patient and participated in the time-out.: Yes Procedure Operation Date: 04/24/24 08:50 Actual Procedures p Left Total Hip Arthroplasty(Left) - Natalio Dawkins MD Surgeon Natalio Dawkins MD Md Physician Dermatologist Gurinder Steve PA-C Estimated Blood Loss 150 Findings Consistent with Post-Op Diagnosis Operative findings were advanced left hip arthritis. She had grade 4 [id number] disease of the femoral head and acetabulum. She had a significant anterior acetabular osteophyte. Moderate-sized joint effusion. Specimens Left femoral head sent for pathology. Anesthesia Type Spinal MAC Complications none Disposition Accompanied Patient To Recovery: No Indications Patient is a 54-year-old female with multiple medical comorbidities who has had a several year history of increasing left hip pain and discomfort got si gnificantly worse over the past year. She is also had a history of back problems. She was evaluated thoroughly and felt that her hip was a major source of her pain. X-rays show advanced hip arthritis. She elected proceed with surgical management. Description of Procedure Operative implants consist of: 1. Biomet G7 size 52 mm acetabular shell. 2. 6.5 cancellous acetabular screws 1 of 35 mm in length and 1 of 30 mm in length. 3. Biomet 52 mm outer diameter and 42 mm inner diameter dual mobility liner. 4. DePuy Corail size 13 KLA femoral stem. 5. +5/28 mm ceramic articular ball with a 42 mm dual mobility liner. The patient was taken the op room, identified, placed on the operating table in the supine position. All contact areas were appropriately padded. IV antibiotics provided by anesthesia team. Spinal anesthetic had been implemented holding area. A Vidal catheter was placed in sterile fashion. The patient was then placed in the right lateral decubitus position. An axillary roll was placed. A stool Birkett position was used for positioning. The left hip and leg were then prepped and draped in usual sterile fashion. A posterolateral approach to the left hip was then performed to a curvilinear incision centered over the greater trochanter. Sharp dissection carried through subcutaneous tissue down to level the IT band gluteal fascia. The IT band gluteal fascia incised longitudinally in line with skin incision. The underlying greater bursa was excised. The piriformis and external rotators were tagged and taken off the posterior aspect of the hip along with the posterior hip joint capsule as a single layer. Great care was taken throughout the procedure protect the sciatic nerve at all times. The hip was internally rotated and dislocated. A femoral neck osteotomy cut was made with Final Cut 5 mm above the lesser trochanter. Femoral head was removed and sent for pathology. The femur was retracted anteriorly. Attention drawn the acetabulum. The acetabular labrum was excised. The pulmonary fat was excised. Sequential reaming the acetabular was then performed again with size 43 and progressing up to 51. I reamed a little bit with a 52 reamer and then placed a 52 mm cup in about 40 degrees lateral opening and 20 degrees of anteversion. It was fixed with two 6.5 cancellous acetabular screws. An anterior osteophyte was removed. Trial liner was placed. Attention drawn the femur. The proximal femur was entered with a Janrain cutter followed by canal finder. I then broached beginning with size 8 and progressing up to 13 point. We got excellent fitted at 13. I trialed the hip and the +5 articular ball right in full stability. We did elect to place a dual mobility implant due to my concern with this patient's compliance. The hip was fully stable. Leg lengths appeared equal. They elect to place his implants. All trial implants were removed. In the dual mobility liner was placed. A size 13 KLA femoral stem was impacted in position. A +5/28 mm ceramic articular ball followed by a 42 mm dual mobility liner was placed. Hip was located once again found to be stable. Attention drawn toward closing. The hip wound was then irrigated extensively with pulsatile lavage solution. I injected locally with 60 cc of half percent Marcaine with epinephrine. The posterior capsule and external rotators then repaired through drill holes in the posterior trochanter with #2 Tycron suture. The IT band gluteal fascia then closed in 1 PDS suture running fashion for subcutaneous tissues then closed with 2 layers with a deep layer #1 Vicryl suture subcutaneous tissues with 2 Dexon suture in a buried interrupted fashion. Skin was closed with skin radames. Leg was then cleaned and dried and a sterile dressing with Xeroform, 4 fours, sterile ABD pads and foam tape was applied. The patient then transferred to the recovery in stable condition. Patient tolerated procedure well and there were no complications. Gurinder Steve, my physician preschool assistant director, was present for the entire procedure. His assistance was essential and required for appropriate patient positioning, prepping and draping, surgical exposure, performing the technical details of the operation, placement the implants, closure of the wound, and placement of the sterile bandage. I attest to the content of the Intraoperative Record and any orders documented therein. Any exceptions are noted below.
--- NOTE | 2024-04-24 10:36 | Anesthesiology Progress Note ---
Date of Service April 24, 2024 Anesthesia Post Procedure Vital Signs Vital Signs: Temp Pulse Pulse Resp BP Pulse Ox O2 Del Method 04/24/24 10:30 36.5 C 67 16 121/74 97 Room Air 04/24/24 10:20 71 16 122/75 100 Oxymask 04/24/24 10:10 73 16 117/82 100 Oxymask 04/24/24 10:00 36.3 C L 78 12 110/79 98 Oxymask 04/24/24 06:15 36.8 C 73 21 145/93 H 96 Room Air O2 Flow Rate 04/24/24 10:30 04/24/24 10:20 2 04/24/24 10:10 4 04/24/24 10:00 6 04/24/24 06:15 Pain Intensity Left Hip: Pain Intensity: 6 Transfer of Care Handoff Completed per policy Notes Mental Status: alert / awake / arousable Patient Amnestic to Procedure: Yes Nausea / Vomiting: adequately controlled Pain: adequately controlled Airway Patency, RR, SpO2: stable & adequate BP & HR: stable & adequate Hydration State: stable & adequate Neuraxial Anesthesia: was administered and sensory block is resolving Anesthetic Complications: no major complications apparent
--- NOTE | 2024-04-24 10:49 | XRay Report ---
XR hip 1V LT w pelvis CLINICAL HISTORY: Postoperative evaluation. COMPARISON: Left hip radiographs 03/23/2024. FINDINGS: Alignment of the total left hip arthroplasty is anatomic. There is no periprosthetic fract ure or unexpected radiopaque foreign body. There are skin radames. 2 acetabular screws are in place. Intrauterine device is incidentally noted. IMPRESSION: Expected findings following total left hip arthroplasty. ACT 112: Negative or not required by law. Electronically signed by: Jason Boucher M.D. 04/24/2024 10:48 AM
[2024-04-24] MEDS ORDERED: NALTREXONE 380 MG IM SCH (11:12)
[2024-04-24] MEDS ORDERED: bisacodyL 10 MG SUPP PR PRN (11:12)
[2024-04-24] MEDS ORDERED: [UNRECOGNIZED DRUG - OTHER] IM SCH (11:12)
[2024-04-24] MEDS ORDERED: [UNRECOGNIZED DRUG - OTHER] IM SCH (11:12)
[2024-04-24] MEDS ORDERED: tiZANidine HCL 4 MG TABLET PO PRN (11:12)
[2024-04-24] MEDS ORDERED: ALUMINUM/MAGNESIUM SUSP 30 ML UDC PO PRN (11:12)
[2024-04-24] MEDS ORDERED: NITROGLYCERIN 0.3 MG/1 TAB 100 TAB BTL SL PRN (11:12)
[2024-04-24] MEDS ORDERED: NALOXONE HCL 0.4 MG/1 ML VIAL/CARP IV PRN (11:12)
[2024-04-24] MEDS ORDERED: MAGNESIUM HYDROXIDE SUSP 30 ML UDC PO PRN (11:12)
[2024-04-24] MEDS ORDERED: METOCLOPRAMIDE HCL INJ 5 MG/ML 2 ML VIAL IV PRN (11:12)
[2024-04-24] MEDS ORDERED: diphenhydrAMINE Capsule 25 MG CAP PO PRN (11:12)
[2024-04-24] MEDS: KETOROLAC 30 MG/ML VIAL IV SCH (11:39)
[2024-04-24] MEDS: SODIUM CHLORIDE 0.9% 1,000 ML IV SCH (11:39)
[2024-04-24] MEDS ORDERED: LEVONORGESTREL (MIRENA) IUD PV SCH (12:00)
[2024-04-24] MEDS: traMADol HCL 50 MG TABLET PO PRN (13:13)
[2024-04-24] MEDS ORDERED: ACETAMINOPHEN 500 MG TAB PO SCH (14:00)
[2024-04-24] MEDS: BENZTROPINE MESYLATE 0.5 MG TAB PO SCH (14:13)
[2024-04-24] MEDS: HYDROmorphone INJ 0.5 MG/0.5 ML SYR IV PRN (14:28)
[2024-04-24] MEDS: Scopolamine CHECK PATCH PLACEMENT SCH (15:54)
[2024-04-24] MEDS: TRANEXAMIC ACID / 0.7% NACL 1,000 MG/100 ML BAG IV SCH (15:59)
[2024-04-24] MEDS: ASCORBIC ACID 500 MG TAB PO SCH (17:11)
[2024-04-24] MEDS: DOCUSATE SODIUM 100 MG CAP PO SCH (20:08)
[2024-04-24] MEDS: SERTRALINE HCL 100 MG TABLET PO SCH (20:08)
[2024-04-24] MEDS: ATORVASTATIN 40 MG TAB PO SCH (20:08)
[2024-04-24] MEDS: traZODone HCL 100 MG TAB PO SCH (20:09)
[2024-04-24] MEDS: lamoTRIgine 100 MG TAB PO SCH (20:09)
[2024-04-24] MEDS: GABAPENTIN 400 MG CAP PO SCH (20:09)
[2024-04-24] MEDS: ASPIRIN 81 MG ECTAB PO SCH (20:09)
[2024-04-24] MEDS: CYCLOBENZAPRINE HCL 10 MG TAB PO SCH (20:09)
[2024-04-24] MEDS ORDERED: SENNA 8.6 MG TAB PO SCH (21:00)
[2024-04-24] MEDS: SENNA 8.6 MG TAB PO SCH (21:22)
--- NOTE | 2024-04-25 07:27 | Orthopedic Progress Note ---
Date of Service April 25, 2024 Assessment & Plan (1) S/P total left hip arthroplasty: Pain controlled. PT/OT wbat. hip precautions dvt prophylaxis: teds, scds, aspirin d/c planning home with home health today will discuss with Dr Juancho Glynn .54 year old patient POD #1 from left robert. Doing well. Had some pain but reasonably controlled. No complaints. Review of Systems All systems reviewed & are unremarkable except as noted in HPI & below. Physical Exam .alert and oriented. NAD. VSS Left leg: Dressing intact. Able to dorsiflex and plantarflex. Hip appears located. Good alignment. NVI Results & Data Results & Data Laboratory Results . Diagnostic Findings . PG Care Time/CCT Total # of Minutes Spent Total Time Spent with Patient: Total time spent is greater than 50% in coordination of care (as documented) at patient's floor/unit and/or counseling patient: Coding Level of Care Code 50603 Post Operative Follow-Up Diagnoses S/P total left hip arthroplasty Z96.642
[2024-04-25] MEDS: dexAMETHasone 10 MG in SYRINGE 0 ML IV SCH (07:35)
[2024-04-25 08:08] LABS: Basophils # (auto) 0.01 K/uL (0.00-0.20); Basophils % (auto) 0.1 %; Eosinophils # (auto) 0.01 K/uL (0.00-0.50); Eosinophils % (auto) 0.1 %; Hematocrit (blood only) 33.9 % (37.0-47.0); Hemoglobin 11.1 g/dl (12.0-16.0); Immature Granulocytes # (auto) 0.06 K/uL (0.01-0.20); Immature Granulocytes % (auto) 0.5 %; Lymphocytes # (auto) 1.86 K/uL (1.20-3.40); Mean Corpuscular Hemoglobin 29.1 pg (25.0-34.0); Mean Corpuscular Hgb Conc 32.7 g/dL (32.0-36.0); Mean Platelet Volume 10.8 fL (9.4-12.4); Monocytes % (auto) 7.3 %; Neutrophils # (auto) 8.19 K/uL (1.40-6.50); Platelet Count 192 K/uL (130-400); RDW Coefficient of Variation 19.5 % (11.5-14.5); RDW Standard Deviation 62.6 fL (36.4-46.3); Red Blood Count 3.81 M/uL (4.20-5.40); White Blood Count 10.93 K/ul (4.8-10.8)
[2024-04-25 08:32] LABS: Est GFR (African American) 103.1 ml/min; Potassium 3.6 mmol/L (3.5-5.1)
[2024-04-25 08:33] LABS: BUN Creatinine Ratio 11.8 (10-20); Calcium 8.3 mg/dl (8.6-10.3); Creatinine Clr Calc Pharmacy 102.4 ml/min; Est GFR (Non-African American) 88.9 ml/min
[2024-04-25] MEDS: METOPROLOL SUCC 25MG EXT REL TAB PO SCH (09:47)
[2024-04-25] MEDS: CLOPIDOGREL BISULFATE 75 MG TAB PO SCH (09:47)
[2024-04-25] MEDS: MULTIVITAMIN TAB PO SCH (09:48)
[2024-04-25] MEDS: hydrOXYzine HCl 25 MG TAB PO SCH (09:48)
[2024-04-25] MEDS: buPROPion SR 150 MG TABCR PO SCH (09:48)
[2024-04-28 02:48] LABS: MDA negative; MDEA negative; MDMA (Ecstasy) Urine, Confirm negative; Marijuana Quant, GCMS Urine 98 ng/mL (<5)
== END 2024-04-25 12:04 | disposition home health service (06) ==
LOC: ASU 05:49 → 3W 05:49

== ENCOUNTER 2024-05-07 20:16 | Inpatient (IN) ==
[2024-05-07 21:17] LABS: Appearance Urine Clear (Clear); Bilirubin Urine Negative (Negative); Blood Urine Negative (Negative); Color Urine Yellow; Glucose Urine UA Negative (Negative); Ketones Urine Negative (Negative); Leukocyte Esterase Urine Negative (Negative); Nitrite Urine Negative (Negative); Protein Urine Negative (Negative); Specific Gravity Urine 1.007 (1.000-1.030); Urobilinogen Urine Negative (Negative)
--- NOTE | 2024-05-07 21:32 | Emergency Department Note ---
Impression & Plan Suicide attempt by acetaminophen overdose, Alcohol abuse, Depression ED Provider Note NAME: THADDEUS TIRADO AGE: 54 SEX: F : 1970 ARRIVES VIA: Ambulance INFORMANT: Patient ED PROVIDER(S): Jose Delacruz MD CHIEF COMPLAINT: Suicide attempt by acetaminophen overdose PLAN: Disposition: Admit MEDICAL DECISION MAKING: The patient is a 54-year-old woman with a past medical history of osteoarthritis, hypertension, hyperlipidemia, TIA, alcohol abuse who presents to the emergency department via EMS for evaluation of suicide attempt where she reports she had overdosed on 50+ tablets of 500 mg acetaminophen. To this provider the patient reports she took this all at once at 7 PM however had reported to others that she took these throughout the day. This prescription was provided approximately 14 days ago. Patient also reports she chased this overdose with alcohol. The patient reports vomited several times after her reported ingestion and admits that there were probably pills within her emesis. On evaluation the patient is awake but mildly somnolent no acute distress, afebrile with stable vital signs. She reports suicide ideation, depression. She admits that she attempted this to kill herself. She is interested in inpatient psychiatric treatment. EKG without overt acute ischemia. Unremarkable intervals. WBC, H/H within normal limits. Platelets 4614, nonspecific. Chemistry with bicarbonate 19 likely related to nausea and vomiting patient reported after her overdose. LFTs are unremarkable. INR 1.0, within normal limits. TSH 6.5, UA without evidence of infection. Medical etoh 74. Acetaminophen level which was drawn at 2039 was 166. Case was discussed with Poison Control Center and given the history of the patient's overdose is not clear as to whether this occurred over time to suggest chronic infection versus acute ingestion recommends initiation of NAC protocol. Of note, presumed 4-hour Acetaminophen level was 70. Patient was referred to hospital service for medical admission until medical clearance can be obtained. Dr. Champion, [facility] hospitalist,to evaluate the patient for admission. Further management per admitting team. Triage Nursing notes reviewed and agree them. Prior/external medical records reviewed Vital Signs: reviewed Differential diagnosis: Overdose, toxicologic, infection, hypoglycemia, electrolyte abnormalities, cardiac sources, intracerebral event, neurologic, trauma, as well as other pathologies. ER treatment provided: See below. Diagnostics interpreted by me: ECG: Normal sinus rhythm, 76 bpm, no ectopy, no overt ST elevation or depression, QTc 479 QRS 102. Cardiac Monitoring: An order for continuous cardiac monitoring was placed and demonstrated Normal sinus rhythm, 76 bpm, no ectopy. Laboratory studies: See below Imaging studies: See below Consultation(s): Poison Control Center HPI: The patient is a 54-year-old woman with a past medical history of osteoarthritis, hypertension, hyperlipidemia, TIA, alcohol abuse who presents to the emergency department via EMS for evaluation of suicide attempt where she reports she had overdosed on 50+ tablets of 500 mg acetaminophen. To this provider the patient reports she took this all at once at 7 PM however had reported to others that she took these throughout the day. This prescription was provided approximately 14 days ago. Patient also reports she chased this overdose with alcohol. The patient reports vomited several times after her reported ingestion and admits that there were probably pills within her emesis. ROS: See above HPI for pertinent positives & negatives. A total of 10 systems reviewed and were otherwise negative. VITALS:See Below PHYSICAL EXAMINATION: GENERAL: Awake, alert, but somnolent, in no distress HENT: Normocephalic, atraumatic. Oropharynx unremarkable. EYES: Normal conjunctiva. Sclera non-icteric. NECK: Supple. No nuchal rigidity. FROM. No JVD. RESPIRATORY: Clear to auscultation. CARDIAC: Regular rate, normal rhythm. Extremities warm and well perfused. Pulses equal. ABDOMEN: Soft, non-distended. No tenderness to palpation. No rebound or guarding. No masses. MUSCULOSKELETAL: Chest examination reveals no tenderness. The back is symmetrical on inspection without obvious abnormality. There is no CVA tenderness to palpation. No joint edema. LOWER EXTREMITIES: Calves are equal size bilaterally and non-tender. No edema. No discoloration. NEURO: Normal sensorium. No sensory or motor deficits noted. SKIN: No rash or jaundice noted. PSYCH: Endorses SI. Endorses suicide attempt. ED COURSE: Critical Care: I have personally spent greater than 45 minutes of critical care time in the direct management of this patient. This includes bedside care, interpretation of diagnostic studies, and testing, discussion with consultants, patient, and family members, and other required patient management activities. This 45 minutes is in excess of all separately billable procedures. Jose Delacruz MD Past Med/Surg History Problem List (Updated 05/08/24 @ 06:17 by Jose Delacruz MD) Depression (Acute) Alcohol abuse (Acute) Suicide attempt by acetaminophen overdose (Acute) S/P total left hip arthroplasty Encounter for pre-operative examination 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 of left hip Left hip pain Low back pain Vitamin B12 deficiency Spinal stenosis, lumbar region with neurogenic claudication Lumbar radiculopathy Chronic pain Polysubstance (excluding opioids) dependence Vitamin D deficiency disease (Acute) Abnormal brain MRI (Acute) Nicotine dependence (Acute) Thyroid nodule (Acute) Hypertension (Chronic) Prolonged QT interval (Chronic) B12 deficiency (Chronic) Schizoaffective disorder (Chronic) Anxiety and depression (Chronic) GERD (gastroesophageal reflux disease) Hyperlipidemia LDL goal <70 (Chronic) TIA (transient ischemic attack) (Chronic) 2016 Alcohol abuse (Chronic) Coronary artery disease, occlusive (Chronic 03/31/14) s/p stents 2016 Medical 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 Thyroid nodule had followed with ENT in the past Low back pain Hypertension Hyperlipidemia Hx of gastroesophageal reflux (GERD) well controlled and stable gets occ reflux- no medications at this time Chronic pain Anxiety and depression Depression with suicidal ideation hx Auditory hallucinations chronic history- no hallucinations re: hurting others or self chronic and stable - follows with psych- feels controlled per patient TIA (transient ischemic attack) ~ Most recent 2018, no residual effects Also hx of TIAs 2010, 2011, 2014 per records Schizoaffective disorder, depressive type hx Medical non-compliance hx STEMI (ST elevation myocardial infarction) ~2013, cardiac cath w/2 stents placed, [facility] follows only with PCP Surgical History Hx of cardiac cath ~2015, [facility], x2 stents; does not f/u cardio anymore. H/O heart artery stent ~2015, [facility], x2 stents; does not f/u cardio anymore. Family History Mother Diabetes Father , age 70 of pancreatic cancer. Heart disease Hypertension Diabetes Pancreatic cancer Prostate cancer Grandmother (Maternal) Breast cancer Other Cancer Denies family history of Ovarian cancer Colorectal cancer Social History Smoking Status: Former smoker Tobacco Type: Cigarettes Cigarettes Per Day: 10 cigs/day; Second Hand Exposure: No; Do You Dip or Chew Tobacco: No; Hx Alcohol Use: Yes Alcohol type: beer Alcohol Intake Frequency Comment: Three 32 ounce cans of Monae Light beer per day Hx Substance Use: No Preferred Language: Albanian Communication Ability: Effective Visual Impairment: No Limitations Hearing Ability: Normal Roentgenologist Required: No Beliefs That Will Affect Care: None Current Living Situation: Significant Other Current Living Situation Comment: will be staying with mom after surgery current occupational status: previously employed current occupation: 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 Feels Safe at Home: No Is there a partner from a previous relationship who is making you feel unsafe now?: No Safety Concerns: Afraid for Others in Home Assistive Devices: None Allergies Allergies Allergy/AdvReac Type Severity Reaction Status Date / Time No Known Allergies Allergy Verified 04/24/24 06:09 Home Meds Home Medications Medication Instructions Recorded Confirmed benztropine 0.5 mg tablet 0.5 mg PO TID 04/02/21 05/07/24 bupropion HCl 150 mg tablet,12 hr 300 mg PO QAM 09/29/21 05/07/24 sustained-release (Wellbutrin SR) hydroxyzine HCl 50 mg tablet 50 mg PO QAM 08/16/23 05/07/24 levonorgestrel 21 mcg/24 hr (up to 1 device intrauterine UD 08/16/23 05/07/24 8 years) 52 mg intrauterine device (Mirena) gabapentin 300 mg capsule 800 mg PO BID 10/06/23 05/07/24 trazodone 100 mg tablet 200 mg PO HS 10/06/23 05/07/24 lamotrigine 100 mg tablet 100 mg PO HS 03/26/24 05/07/24 naltrexone microspheres 380 mg 380 mg IM UD 03/26/24 05/07/24 intramuscular suspension,extended release (Vivitrol) paliperidone palm (6 month) 1,560 1,560 mg IM UD 03/26/24 05/07/24 mg/5 mL intramuscular syringe (Invega Danny) sertraline 100 mg tablet 200 mg PO HS 03/26/24 05/07/24 Previous Rx's Medication Instructions Recorded atorvastatin 80 mg tablet (Lipitor) 80 mg PO QPM #90 tabs 12/15/21 clopidogrel 75 mg tablet (Plavix) 75 mg PO QAM #90 tabs 05/20/22 metoprolol succinate 25 mg 25 mg PO DAILY #90 tabs 05/20/22 tablet,extended release 24 hr (Toprol XL) nitroglycerin 0.3 mg sublingual 0.3 mg sublingual Q5M PRN chest 05/20/22 tablet pain #7 tabs cyclobenzaprine 10 mg tablet 10 mg PO HS #30 tabs 10/06/23 tizanidine 4 mg tablet 4 mg PO BID PRN muscle spasticity 02/15/24 #30 tabs Wheeled Walker #1 ea 04/09/24 acetaminophen 500 mg tablet 1,000 mg (2 x 500 mg) PO TID pain 04/22/24 (Tylenol Extra Strength) 30 days #180 tabs ondansetron 4 mg disintegrating 4 mg PO Q8 PRN nausea #20 tabs 04/22/24 tablet sennosides 8.6 mg tablet (Senokot) 8.6 mg PO BID prevent constipation 04/22/24 14 days #28 tabs tramadol 50 mg tablet 50 - 100 mg (1 - 2 x 50 mg) PO Q6 04/30/24 PRN pain #40 tabs Results & Data (ED) Vital Signs Vital Signs - 24 hr 05/07/24 20:22 05/07/24 20:55 05/07/24 20:59 Temperature 36.7 C Temperature Source Oral Pulse Rate 93 H 87 Pulse Rate from SpO2 Sensor Pulse Rhythm Regular Pulse Strength Normal Respiratory Rate 20 Respiratory Effort / Characteristics Non-Labored Spontaneous Respiratory Depth Normal Respiratory Pattern Regular Blood Pressure 120/79 Blood Pressure Mean 92 Blood Pressure Position Lying Pulse Oximetry 95 Oxygen Delivery Method Room Air Room Air Sepsis Recent Fever Within 48 Hours No Sepsis New/Unexplained Change in Mental Status No Sepsis Action Taken by Nursing No Action Required 05/07/24 21:00 05/07/24 21:00 05/07/24 21:00 Temperature Temperature Source Pulse Rate 90 Pulse Rate from SpO2 Sensor 85 Pulse Rhythm Pulse Strength Respiratory Rate 16 Respiratory Effort / Characteristics Respiratory Depth Respiratory Pattern Blood Pressure 133/76 133/76 Blood Pressure Mean 92 92 Blood Pressure Position Pulse Oximetry 95 Oxygen Delivery Method Sepsis Recent Fever Within 48 Hours Sepsis New/Unexplained Change in Mental Status Sepsis Action Taken by Nursing 05/07/24 21:30 05/07/24 21:30 05/07/24 21:36 Temperature Temperature Source Pulse Rate 82 Pulse Rate from SpO2 Sensor 79 Pulse Rhythm Pulse Strength Respiratory Rate 17 Respiratory Effort / Characteristics Respiratory Depth Respiratory Pattern Blood Pressure 125/80 125/80 Blood Pressure Mean 99 99 Blood Pressure Position Pulse Oximetry 95 Oxygen Delivery Method Sepsis Recent Fever Within 48 Hours Sepsis New/Unexplained Change in Mental Status Sepsis Action Taken by Nursing 05/07/24 21:42 05/07/24 21:45 05/07/24 21:45 Temperature Temperature Source Pulse Rate 78 Pulse Rate from SpO2 Sensor 77 Pulse Rhythm Pulse Strength Respiratory Rate 20 Respiratory Effort / Characteristics Respiratory Depth Respiratory Pattern Blood Pressure 133/72 133/72 Blood Pressure Mean 83 83 Blood Pressure Position Pulse Oximetry 95 Oxygen Delivery Method Sepsis Recent Fever Within 48 Hours Sepsis New/Unexplained Change in Mental Status Sepsis Action Taken by Nursing 05/07/24 21:45 05/07/24 21:57 05/07/24 22:00 Temperature Temperature Source Pulse Rate 78 86 72 Pulse Rate from SpO2 Sensor 73 81 74 Pulse Rhythm Pulse Strength Respiratory Rate 18 20 18 Respiratory Effort / Characteristics Respiratory Depth Respiratory Pattern Blood Pressure Blood Pressure Mean Blood Pressure Position Pulse Oximetry 94 97 97 Oxygen Delivery Method Sepsis Recent Fever Within 48 Hours Sepsis New/Unexplained Change in Mental Status Sepsis Action Taken by Nursing 05/07/24 22:00 05/07/24 22:00 05/07/24 22:00 Temperature Temperature Source Pulse Rate Pulse Rate from SpO2 Sensor Pulse Rhythm Pulse Strength Respiratory Rate Respiratory Effort / Characteristics Respiratory Depth Respiratory Pattern Blood Pressure 133/85 133/85 133/85 Blood Pressure Mean 95 95 95 Blood Pressure Position Pulse Oximetry Oxygen Delivery Method Sepsis Recent Fever Within 48 Hours Sepsis New/Unexplained Change in Mental Status Sepsis Action Taken by Nursing 05/07/24 22:09 05/07/24 22:15 05/07/24 22:21 Temperature Temperature Source Pulse Rate 72 76 Pulse Rate from SpO2 Sensor 72 68 Pulse Rhythm Pulse Strength Respiratory Rate 20 25 H Respiratory Effort / Characteristics Respiratory Depth Respiratory Pattern Blood Pressure 139/88 Blood Pressure Mean 102 Blood Pressure Position Pulse Oximetry 95 95 Oxygen Delivery Method Sepsis Recent Fever Within 48 Hours Sepsis New/Unexplained Change in Mental Status Sepsis Action Taken by Nursing 05/07/24 22:27 05/07/24 22:30 05/07/24 22:57 Temperature Temperature Source Pulse Rate 83 75 Pulse Rate from SpO2 Sensor 81 70 Pulse Rhythm Pulse Strength Respiratory Rate 16 18 Respiratory Effort / Characteristics Respiratory Depth Respiratory Pattern Blood Pressure 142/90 H 124/76 Blood Pressure Mean 102 92 Blood Pressure Position Pulse Oximetry 96 95 Oxygen Delivery Method Room Air Room Air Sepsis Recent Fever Within 48 Hours Sepsis New/Unexplained Change in Mental Status Sepsis Action Taken by Nursing 05/07/24 23:00 05/07/24 23:39 05/07/24 23:45 Temperature Temperature Source Pulse Rate 86 71 71 Pulse Rate from SpO2 Sensor 86 70 71 Pulse Rhythm Pulse Strength Respiratory Rate 15 19 19 Respiratory Effort / Characteristics Respiratory Depth Respiratory Pattern Blood Pressure 131/92 127/86 144/91 H Blood Pressure Mean 105 99 108 Blood Pressure Position Pulse Oximetry 97 96 95 Oxygen Delivery Method Room Air Room Air Room Air Sepsis Recent Fever Within 48 Hours Sepsis New/Unexplained Change in Mental Status Sepsis Action Taken by Nursing 05/08/24 00:06 05/08/24 00:15 05/08/24 00:16 Temperature Temperature Source Pulse Rate 81 70 Pulse Rate from SpO2 Sensor 81 70 Pulse Rhythm Pulse Strength Respiratory Rate 15 18 Respiratory Effort / Characteristics Respiratory Depth Respiratory Pattern Blood Pressure 142/92 H 139/69 Blood Pressure Mean 108 110 Blood Pressure Position Pulse Oximetry 97 96 Oxygen Delivery Method Room Air Sepsis Recent Fever Within 48 Hours Sepsis New/Unexplained Change in Mental Status Sepsis Action Taken by Nursing 05/08/24 00:33 05/08/24 00:42 05/08/24 00:45 Temperature Temperature Source Pulse Rate 75 78 Pulse Rate from SpO2 Sensor 72 78 Pulse Rhythm Pulse Strength Respiratory Rate 15 14 Respiratory Effort / Characteristics Respiratory Depth Respiratory Pattern Blood Pressure 143/87 H Blood Pressure Mean 108 Blood Pressure Position Pulse Oximetry 96 98 Oxygen Delivery Method Sepsis Recent Fever Within 48 Hours Sepsis New/Unexplained Change in Mental Status Sepsis Action Taken by Nursing 05/08/24 00:45 05/08/24 00:45 05/08/24 00:52 Temperature Temperature Source Pulse Rate 77 Pulse Rate from SpO2 Sensor Pulse Rhythm Pulse Strength Respiratory Rate Respiratory Effort / Characteristics Respiratory Depth Respiratory Pattern Blood Pressure 143/87 H 143/87 H Blood Pressure Mean 108 108 Blood Pressure Position Pulse Oximetry Oxygen Delivery Method Sepsis Recent Fever Within 48 Hours Sepsis New/Unexplained Change in Mental Status Sepsis Action Taken by Nursing Laboratory Data Attestation: I reviewed the patient's lab results. 05/07/24 20:41 05/07/24 20:41 Lab Results 05/07/24 05/07/24 05/07/24 Range/Units 20:40 20:41 23:25 WBC 9.00 (4.8-10.8) K/ul RBC 4.38 (4.20-5.40) M/uL Hgb 12.9 (12.0-16.0) g/dl Hct 37.8 (37.0-47.0) % MCV 86.3 (80.0-100.0) fL MCH 29.5 (25.0-34.0) pg MCHC 34.1 (32.0-36.0) g/dL RDW Std Deviation 59.2 H (36.4-46.3) fL RDW Coeff of Brooke 18.8 H (11.5-14.5) % Plt Count 469 H (130-400) K/uL MPV 10.2 (9.4-12.4) fL Immature Gran % (Auto) 0.3 % Neut % (Auto) 58.7 % Lymph % (Auto) 29.7 % [place] % (Auto) 9.0 % Eos % (Auto) 1.6 % Baso % (Auto) 0.7 % Neut # (Auto) 5.29 (1.40-6.50) K/uL Lymph # (Auto) 2.67 (1.20-3.40) K/uL [place] # (Auto) 0.81 H (0.11-0.59) K/uL Eos # (Auto) 0.14 (0.00-0.50) K/uL Baso # (Auto) 0.06 (0.00-0.20) K/uL Immature Gran # (Auto) 0.03 (0.01-0.20) K/uL PT 10.7 (9.0-12.0) Seconds INR 1.0 (0.9-1.1) Sodium 139 (136-145) mmol/L Potassium 3.6 (3.5-5.1) mmol/L Chloride 108 H (98-107) mmol/L Carbon Dioxide 19 L (21-32) mmol/L Anion Gap 12 H (3-11) BUN 6 (6-23) mg/dl Creatinine 0.54 L (0.6-1.2) mg/dl Est Cr Clr Drug Dosing Not Reportable Est GFR ( Amer) 124.0 ml/min Est GFR (Non-Af Amer) 107.0 ml/min BUN/Creatinine Ratio 11.1 (10-20) Glucose 114 H (70-99(Fasting)) mg/dl Calcium 9.6 (8.6-10.3) mg/dl Magnesium 1.9 (1.7-2.4) mg/dl Total Bilirubin 0.4 (0.2-1.0) mg/dl AST 13 (13-39) U/L ALT 12 (7-52) U/L Alkaline Phosphatase 102 (34-104) U/L Total Protein 6.7 (6.0-8.3) gm/dl Albumin 3.8 (3.4-5.0) gm/dl Globulin 2.9 (2.5-4.0) gm/dl Albumin/Globulin Ratio 1.3 (0.9-2) TSH 6.569 H (0.300-4.500) uIu/ml Urine Color Yellow Urine Appearance Clear (Clear) Urine pH 5.0 (4.5-7.5) Ur Specific [place] 1.007 (1.000-1.030) Urine Protein Negative (Negative) Urine Glucose (UA) Negative (Negative) Urine Ketones Negative (Negative) Urine Blood Negative (Negative) Urine Nitrite Negative (Negative) Urine Bilirubin Negative (Negative) Urine Urobilinogen Negative (Negative) Ur Leukocyte Esterase Negative (Negative) Salicylates < 3.0 L (3.0-30) mg/dl Urine Opiates Screen Neg (Neg) Ur Methadone, Qual Neg (Neg) Urine Fentanyl Screen Neg (Neg) Acetaminophen 166 H* 70 H (10-30) ug/ml Urine Barbiturates Neg (Neg) Ur Phencyclidine (PCP) Neg (Neg) U Amphetamin/Meth Scrn Neg (Neg) MDMA (Ecstasy) Screen Neg (Neg) U Benzodiazepines Scrn Neg (Neg) Ur Cocaine Metabolite Neg (Neg) U Marijuana (THC) Screen Neg (Neg) Ethyl Alcohol mg/dL 74.7 H (<10.0) mg/dl SARS-CoV-2, RNA, NAAT NEGATIVE (NEGATIVE) Administered Medications Acetylcysteine 9,270 mg/ (Dextrose) 1,046.35 mls @ 62.5 mls/hr IV ONCE ONE; Protocol Stop: 05/08/24 20:55 Last Admin: 05/08/24 05:34 Dose: 62.5 mls/hr Documented By: JUDD Tramadol HCl (Tramadol Hcl 50 Mg Tablet) 100 mg PO Q4H PRN PRN Reason: SEVERE Pain (7,8,9,10) Stop: 06/07/24 05:22 Last Admin: 05/08/24 05:33 Dose: 100 mg Documented By: JUDD Discontinued Medications Acetylcysteine (Acetylcysteine Iv 21 Hr Regimen (>40kg)) 1 each IV NOW STA; Protocol Stop: 05/07/24 23:10 Last Admin: 05/08/24 00:08 Dose: 1 each Documented By: CLARIBEL Acetylcysteine 13,910 mg/ (Dextrose) 269.55 mls @ 200 mls/hr IV ONCE ONE; Protocol Stop: 05/08/24 00:29 Last Infusion: 05/08/24 01:39 Dose: Infused Documented By: Admin: 05/08/24 00:07 Dose: 200 mls/hr Documented By: CLARIBEL Acetylcysteine 4,640 mg/ (Dextrose) 523.2 mls @ 125 mls/hr IV ONCE ONE; Protocol Stop: 05/08/24 04:22 Last Infusion: 05/08/24 05:39 Dose: Infused Documented By: Admin: 05/08/24 01:39 Dose: 125 mls/hr Documented By: CLARIBEL Miscellaneous (Stat Iv/Im) 1 each N/A NOW STA Stop: 05/07/24 23:10 Last Admin: 05/08/24 00:08 Dose: 1 each Documented By: CLARIBEL Discharge Plan Visit Data Chief Complaint: Overdose (Intentional) Stated Complaint: TYLENOL OD, TOOK APPROX [id number] ED Provider: Jose Delacruz Discharge Problem: Suicide attempt by acetaminophen overdose, Alcohol abuse, Depression Discharge Instructions Interventions: ED Discharge Assessment Last Done: 05/08/24 02:49 Discharge Problem: Suicide attempt by acetaminophen overdose Qualifiers: Encounter type: initial encounter Qualified Code(s): T39.1X2A - Poisoning by 4- Aminophenol derivatives, intentional self-harm, initial encounter Depression Qualifiers: Depression Type: unspecified Qualified Code(s): F32.A - Depression, unspecified
[2024-05-07 21:37] LABS: Alanine Aminotransferase 12 U/L (7-52); Albumin Globulin Ratio 1.3 (0.9-2); Albumin Level 3.8 gm/dl (3.4-5.0); Alkaline Phosphatase 102 U/L (34-104); Anion Gap 12 (3-11); Aspartate Aminotransferase 13 U/L (13-39); BUN Creatinine Ratio 11.1 (10-20); Bilirubin,Total 0.4 mg/dl (0.2-1.0); Blood Urea Nitrogen 6 mg/dl (6-23); Calcium 9.6 mg/dl (8.6-10.3); Carbon Dioxide 19 mmol/L (21-32); Chloride 108 mmol/L (98-107); Globulin 2.9 gm/dl (2.5-4.0); Glucose 114 mg/dl (70-99(Fasting)); Potassium 3.6 mmol/L (3.5-5.1); Sodium 139 mmol/L (136-145); Total Protein 6.7 gm/dl (6.0-8.3)
[2024-05-07 21:42] LABS: Salicylate < 3.0 mg/dl (3.0-30)
[2024-05-07 21:43] LABS: Acetaminophen 166 ug/ml (10-30)
[2024-05-07 21:51] LABS: Basophils # (auto) 0.06 K/uL (0.00-0.20); Basophils % (auto) 0.7 %; Eosinophils # (auto) 0.14 K/uL (0.00-0.50); Eosinophils % (auto) 1.6 %; Hematocrit (blood only) 37.8 % (37.0-47.0); Hemoglobin 12.9 g/dl (12.0-16.0); Immature Granulocytes # (auto) 0.03 K/uL (0.01-0.20); Immature Granulocytes % (auto) 0.3 %; Lymphocytes # (auto) 2.67 K/uL (1.20-3.40); Lymphocytes % (auto) 29.7 %; Mean Corpuscular Hemoglobin 29.5 pg (25.0-34.0); Mean Corpuscular Hgb Conc 34.1 g/dL (32.0-36.0); Mean Corpuscular Volume 86.3 fL (80.0-100.0); Mean Platelet Volume 10.2 fL (9.4-12.4); Monocytes # (auto) 0.81 K/uL (0.11-0.59); Neutrophils # (auto) 5.29 K/uL (1.40-6.50); Neutrophils % (auto) 58.7 %; Platelet Count 469 K/uL (130-400); RDW Coefficient of Variation 18.8 % (11.5-14.5); RDW Standard Deviation 59.2 fL (36.4-46.3); Red Blood Count 4.38 M/uL (4.20-5.40)
[2024-05-07 21:52] LABS: Thyroid Stimulating Hormone 6.569 uIu/ml (0.300-4.500)
[2024-05-07 21:52] LABS: Amphetamines+Metham, Urine Neg (Neg); Barbiturates, Urine Neg (Neg); Benzodiazepine, Urine Neg (Neg); Cocaine, Urine Neg (Neg); Fentanyl, Urine Neg (Neg); MDMA (Ecstacy), Urine Neg (Neg); Marijuana, Urine Neg (Neg); Methadone, Urine Neg (Neg); Opiate, Urine Neg (Neg); Phencyclidine, Urine Neg (Neg)
[2024-05-08] MEDS: DEXTROSE 5% IV ONE ×3 (00:07→05:34)
[2024-05-08] MEDS: ACETYLCYSTEINE IV ONE ×3 (00:07→05:34)
[2024-05-08] MEDS: AcetylCYSTEINE IV 21 HR REGIMEN (>40KG) IV STA (00:08)
[2024-05-08] MEDS: STAT IV/IM STA (00:08)
[2024-05-08 00:43] LABS: Prothrombin Time 10.7 Seconds (9.0-12.0)
--- NOTE | 2024-05-08 01:16 | History & Physical Report ---
Date of Service May 08, 2024 Assessment & Plan (1) Suicide attempt by acetaminophen overdose: Plan: 54 F with PMH schizoaffective disorder, anxiety, depression, alcohol use disorder, ischemic CAD s/p stents (2016), HDL, HTN, and lumbar radiculopathy on chronic opiates who presented via EMS after intentional overdose of acetaminophen tablets. Admitted for detox via NAC protocol, psychiatric evaluation. Suicide Attempt by Acetaminophen Overdose/Acetaminophen Toxicity -Acetaminophen level on arrival 166. Subsequent lvl 70, 4 hours later. -Normal LFTs, no leukocytosis, EKG normal, awake, alert throughout. Airway protected. * Admitted to ER BH unit * Continue NAC protocol per poison control center recs * Acetaminophen level pending (a.m. labs) * Also awaiting LFTs, PT/INR (12 hours post last dose of N-acetylcysteine) * Psychiatry consult Schizoaffective Disorder -Depressive type. [facility] -Continue home regimen: * Sertraline 200 mg at bedtime * Trazodone 200 mg at bedtime * Lamotrigine 100 mg at bedtime Depression/Anxiety -Also managed by [facility]. * Continue regimen as above * Wellbutrin-SR 300 mg every morning * Hydroxyzine 50 mg nightly Chronic Pain/Lumbar Radiculopathy/Hip 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 -Managed by [facility]. * Modified home tramadol regimen: As needed tramadol 50 mg, 100 mg * Ibuprofen 600 mg every 6 hours as needed for baseline/mild pain * Sennosides 8.6 mg twice daily for associated constipation * As needed tizanidine 4 mg twice daily as needed * Home gabapentin 800 mg twice daily ESTER * Home benztropine 0.5 mg 3 times daily Ester * Home cyclobenzaprine 10 mg nightly Ischemic CAD/HLD -S/p STEMI in 2013, stent placement x 2 in 2016. -Managed by PCP. Not managed by cardiology. * Home atorvastatin 80 mg every afternoon * Metoprolol succinate 25 mg p.o. daily TIA * Continue home Plavix 75 mg every morning Code: Full code Dispo: Med-Surg telemetry FEN/GI: LR @maintenance rate. Heart healthy DVT Prophylaxis: Held PT/OT: No Consults: Psychiatry Case Management: Yes (2) Acetaminophen toxicity: (3) Schizoaffective disorder: (4) Anxiety and depression: (5) Alcohol abuse: (6) Coronary artery disease, occlusive: (7) Hyperlipidemia LDL goal <70: (8) Lumbar radiculopathy: History of Present Illness Primary Care Provider: Sabiha Hough DO Coleman is a 54-year-old woman with a past medical history of alcohol use disorder, schizoaffective disorder, anxiety, depression hypertension, hyperlipidemia, CAD (s/p stents 2016), osteoarthritis of left hip, lumbar spinal stenosis, who presented to the ER via EMS after intentionally ingesting 50+ tablets of acetaminophen 500 mg. Timeline of ingestion is unclear she gave varying accounts on arrival and at admission however, she admits to also taking with alcohol. In the ER, she was found to be mildly somnolent but in no acute distressvital signs were stable. Lab workup was notable for a bicarbonate of 19 slight anion gap-12, TSH of 6.569, EtOH of 74.7 and an acetaminophen level of 166. EKG was unremarkable without evidence of ischemia or interval prolongation. Poison control was contacted recommended initiation of NAC protocol. Subsequent acetaminophen level 4 hours later improved markedly to 70. Hospitalist service was then consulted for admission. On admission, patient was awake and alert but drowsy. She was able to corroborate HPI. ROS + hip pain, and headache. Allergies Allergy/AdvReac Type Severity Reaction Status Date / Time No Known Allergies Allergy Verified 04/24/24 06:09 Home Medications Medication Instructions Recorded Confirmed Type benztropine 0.5 mg tablet 0.5 mg PO TID 04/02/21 05/07/24 History bupropion HCl 150 mg tablet,12 hr 300 mg PO QAM 09/29/21 05/07/24 History sustained-release (Wellbutrin SR) atorvastatin 80 mg tablet (Lipitor) 80 mg PO QPM #90 tabs 12/15/21 05/07/24 Rx clopidogrel 75 mg tablet (Plavix) 75 mg PO QAM #90 tabs 05/20/22 05/07/24 Rx metoprolol succinate 25 mg 25 mg PO DAILY #90 tabs 05/20/22 05/07/24 Rx tablet,extended release 24 hr (Toprol XL) nitroglycerin 0.3 mg sublingual 0.3 mg sublingual Q5M PRN chest 05/20/22 05/07/24 Rx tablet pain #7 tabs hydroxyzine HCl 50 mg tablet 50 mg PO QAM 08/16/23 05/07/24 History levonorgestrel 21 mcg/24 hr (up to 1 device intrauterine UD 08/16/23 05/07/24 History 8 years) 52 mg intrauterine device (Mirena) cyclobenzaprine 10 mg tablet 10 mg PO HS #30 tabs 10/06/23 05/07/24 Rx gabapentin 300 mg capsule 800 mg PO BID 10/06/23 05/07/24 History trazodone 100 mg tablet 200 mg PO HS 10/06/23 05/07/24 History tizanidine 4 mg tablet 4 mg PO BID PRN muscle spasticity 02/15/24 05/07/24 Rx #30 tabs lamotrigine 100 mg tablet 100 mg PO HS 03/26/24 05/07/24 History naltrexone microspheres 380 mg 380 mg IM UD 03/26/24 05/07/24 History intramuscular suspension,extended release (Vivitrol) paliperidone palm (6 month) 1,560 1,560 mg IM UD 03/26/24 05/07/24 History mg/5 mL intramuscular syringe (Invega Umairken) sertraline 100 mg tablet 200 mg PO HS 03/26/24 05/07/24 History Wheeled Walker #1 ea 04/09/24 05/07/24 Rx acetaminophen 500 mg tablet 1,000 mg (2 x 500 mg) PO TID pain 04/22/24 05/07/24 Rx (Tylenol Extra Strength) 30 days #180 tabs ondansetron 4 mg disintegrating 4 mg PO Q8 PRN nausea #20 tabs 04/22/24 05/07/24 Rx tablet sennosides 8.6 mg tablet (Senokot) 8.6 mg PO BID prevent constipation 04/22/24 05/07/24 Rx 14 days #28 tabs tramadol 50 mg tablet 50 - 100 mg (1 - 2 x 50 mg) PO Q6 04/30/24 05/07/24 Rx PRN pain #40 tabs Past Med/Surg History Problem List (Updated 05/08/24 @ 16:56 by Daren Senior MD) Unspecified psychosis not due to a substance or known physiological condition Post traumatic stress disorder (PTSD) Acetaminophen toxicity Depression (Acute) Alcohol abuse (Acute) Suicide attempt by acetaminophen overdose (Acute) S/P total left hip arthroplasty Encounter for pre-operative examination 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 of left hip Left hip pain Low back pain Vitamin B12 deficiency Spinal stenosis, lumbar region with neurogenic claudication Lumbar radiculopathy Chronic pain Polysubstance (excluding opioids) dependence Vitamin D deficiency disease (Acute) Abnormal brain MRI (Acute) Nicotine dependence (Acute) Thyroid nodule (Acute) Hypertension (Chronic) Prolonged QT interval (Chronic) B12 deficiency (Chronic) Schizoaffective disorder (Chronic) Anxiety and depression (Chronic) GERD (gastroesophageal reflux disease) Hyperlipidemia LDL goal <70 (Chronic) TIA (transient ischemic attack) (Chronic) 2016 Alcohol abuse (Chronic) Coronary artery disease, occlusive (Chronic 03/31/14) s/p stents 2016 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 Thyroid nodule had followed with ENT in the past Low back pain Hypertension Hyperlipidemia Hx of gastroesophageal reflux (GERD) well controlled and stable gets occ reflux- no medications at this time Chronic pain Anxiety and depression Depression with suicidal ideation hx Auditory hallucinations chronic history- no hallucinations re: hurting others or self chronic and stable - follows with psych- feels controlled per patient TIA (transient ischemic attack) ~ Most recent 2018, no residual effects Also hx of TIAs 2010, 2011, 2014 per records Schizoaffective disorder, depressive type hx Medical non-compliance hx STEMI (ST elevation myocardial infarction) ~2013, cardiac cath w/2 stents placed, [facility] follows only with PCP Surgical History Hx of cardiac cath ~2015, [facility], x2 stents; does not f/u cardio anymore. H/O heart artery stent ~2015, [facility], x2 stents; does not f/u cardio anymore. Family History Mother Diabetes Father , age 70 of pancreatic cancer. Heart disease Hypertension Diabetes Pancreatic cancer Prostate cancer Grandmother (Maternal) Breast cancer Other Cancer Denies family history of Ovarian cancer Colorectal cancer Social History Smoking Status: Former smoker Tobacco Type: Cigarettes Cigarettes Per Day: 10 cigs/day; Second Hand Exposure: No; Do You Dip or Chew Tobacco: No; Hx Alcohol Use: Yes Alcohol type: beer Alcohol Intake Frequency Comment: Three 32 ounce cans of Monae Light beer per day Hx Substance Use: No Preferred Language: Chinese Communication Ability: Effective Visual Impairment: No Limitations Hearing Ability: Normal 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 Feels Safe at Home: No Is there a partner from a previous relationship who is making you feel unsafe now?: No Safety Concerns: Afraid for Others in Home Assistive Devices: Walker and Wheelchair Review of Systems Review of Systems: All systems reviewed & are unremarkable except as noted in HPI & below Physical Exam Physical Exam: General: Tired appearing but responsive woman in no acute distress. HEENT: PERRLA. Normal conjunctiva, anicteric sclera. Respiratory: Normal respiratory effort, CTABL. Cardiovascular: RRR without murmurs, gallops, or rubs. No pedal edema. GI: Soft abdomen with normal bowel sounds heard on auscultation. Nontender x4 quadrants Neuro: Alert and oriented x3. Results & Data Results & Data Vital Signs (Past 12 Hours) Vital Signs Temp Pulse Resp BP Pulse Ox O2 Del Method 05/08/24 00:52 77 05/08/24 00:45 143/87 H 05/08/24 00:45 143/87 H 05/08/24 00:45 143/87 H 05/08/24 00:42 78 14 98 05/08/24 00:33 75 15 96 05/08/24 00:16 139/69 05/08/24 00:15 70 18 96 05/08/24 00:06 81 15 142/92 H 97 Room Air 05/07/24 23:45 71 19 144/91 H 95 Room Air 05/07/24 23:39 71 19 127/86 96 Room Air 05/07/24 23:00 86 15 131/92 97 Room Air 05/07/24 22:57 75 18 124/76 95 Room Air 05/07/24 22:30 142/90 H 05/07/24 22:27 83 16 96 Room Air 05/07/24 22:21 76 25 H 95 05/07/24 22:15 139/88 05/07/24 22:09 72 20 95 05/07/24 22:00 133/85 05/07/24 22:00 133/85 05/07/24 22:00 133/85 05/07/24 22:00 72 18 97 05/07/24 21:57 86 20 97 05/07/24 21:45 78 18 94 05/07/24 21:45 133/72 05/07/24 21:45 133/72 05/07/24 21:42 78 20 95 05/07/24 21:36 82 17 95 05/07/24 21:30 125/80 05/07/24 21:30 125/80 05/07/24 21:00 133/76 05/07/24 21:00 133/76 05/07/24 21:00 90 16 95 05/07/24 20:59 87 05/07/24 20:55 Room Air 05/07/24 20:22 36.7 C 93 H 20 120/79 95 Room Air Supervising Physician Co-Signing Physician Notes Attending addendum: I have physically seen this patient, have supervised the medical residents activities, and agree with the H&P unless as otherwise noted. Assessment and Plan: Intentional acetaminophen overdose- Acetaminophen level 166 N-acetylcysteine per protocol Serial acetaminophen level, chemistry profile, CBC with differential and magnesium levels Consult psychiatry Alcohol use- Alcohol level 74.7 on admission AWSS protocol Schizoaffective disorder/depression/anxiety- Managed by [facility] Continue sertraline, trazodone and lamotrigine as noted at bedtime Continue Wellbutrin SR and hydroxyzine Chronic pain syndrome- Continue medications as outpatient CAD/history of STEMI 2013/history stent placement times 11/2015/history of TIA- Continue atorvastatin, metoprolol succinate and clopidogrel as noted Will need entire medication regimen addressed regarding psychoactive medications Resident Activity Tracking Resident Involvement: Resident Care Provided Care Provided: Adult Hospital Medicine (1) Suicide attempt by acetaminophen overdose Encounter type: initial encounter Qualified Code(s): T39.1X2A - Poisoning by 4-Aminophenol derivatives, intentional self-harm, initial encounter (3) Schizoaffective disorder Schizoaffective disorder type: unspecified Qualified Code(s): F25.9 - Schizoaffective disorder, unspecified
[2024-05-08 01:39] LABS: Magnesium 1.9 mg/dl (1.7-2.4)
[2024-05-08] MEDS ORDERED: traMADol HCL 50 MG TABLET PO PRN (02:48)
[2024-05-08] MEDS ORDERED: tiZANidine HCL 4 MG TABLET PO PRN (02:48)
[2024-05-08] MEDS ORDERED: NITROGLYCERIN SL 0.4 MG/TAB TAB SL PRN (04:27)
[2024-05-08] MEDS: traMADol HCL 50 MG TABLET PO PRN ×2 (05:33→21:12)
[2024-05-08 06:17] LABS: Basophils # (auto) 0.02 K/uL (0.00-0.20); Basophils % (auto) 0.2 %; Eosinophils # (auto) 0.11 K/uL (0.00-0.50); Eosinophils % (auto) 1.2 %; Hematocrit (blood only) 37.7 % (37.0-47.0); Hemoglobin 12.9 g/dl (12.0-16.0); Immature Granulocytes # (auto) 0.04 K/uL (0.01-0.20); Immature Granulocytes % (auto) 0.4 %; Lymphocytes % (auto) 18.3 %; Mean Corpuscular Hemoglobin 29.9 pg (25.0-34.0); Mean Corpuscular Hgb Conc 34.2 g/dL (32.0-36.0); Mean Corpuscular Volume 87.3 fL (80.0-100.0); Mean Platelet Volume 10.1 fL (9.4-12.4); Monocytes # (auto) 0.49 K/uL (0.11-0.59); Monocytes % (auto) 5.3 %; Neutrophils # (auto) 6.95 K/uL (1.40-6.50); Neutrophils % (auto) 74.6 %; Platelet Count 418 K/uL (130-400); RDW Coefficient of Variation 18.8 % (11.5-14.5); RDW Standard Deviation 59.1 fL (36.4-46.3); Red Blood Count 4.32 M/uL (4.20-5.40); White Blood Count 9.31 K/ul (4.8-10.8)
[2024-05-08 06:27] LABS: Albumin Globulin Ratio 1.3 (0.9-2); Albumin Level 3.4 gm/dl (3.4-5.0); BUN Creatinine Ratio 8.9 (10-20); Bilirubin,Total 0.5 mg/dl (0.2-1.0); Est GFR (African American) 131.7 ml/min; Est GFR (Non-African American) 113.6 ml/min; Globulin 2.7 gm/dl (2.5-4.0); Potassium 3.3 mmol/L (3.5-5.1); Total Protein 6.1 gm/dl (6.0-8.3)
[2024-05-08] MEDS: IBUPROFEN 600 MG TAB PO PRN (07:04)
--- NOTE | 2024-05-08 07:17 | Hospitalist Progress Note ---
Date of Service May 08, 2024 Assessment & Plan (1) Suicide attempt by acetaminophen overdose: Plan: 1. Acetaminophen overdose/acetaminophen toxicity due to suicide Acetaminophen level on arrival was 166, at 4 hrs- 70, at 10 hrs-7. LFTs are normal, no leukocytosis. In ED, EKG normal. Pt has remained awake and alert since arrival. -Admitted to ER BH unit -Continue NAC protocol per poison control center recs -Psychiatry consult, awaiting recommendation 2. Recent JONNIE Pt had L JONNIE 1 week ago. Incision is well adhered and radames are in place. Pt started PT at home and is using walker for ambulation. Pt is c/o pain at L hip -Continue tramadol and ibuprofen for pain control -Remind pt of hip precautions to avoid dislocation Chronic Schizoaffective disorder - Continue home meds of Benztropine, Bupropion, lamotrigine, and gabapentin Depression -Continue sertraline CAD -Continue home meds of atorvastatin, clopidogrel, metoprolol Full code D/C DVT prophylaxis- SCDs Consults general surgery NPO/ LR 150mls (2) Acetaminophen toxicity: (3) Schizoaffective disorder: (4) Anxiety and depression: (5) Alcohol abuse: (6) Coronary artery disease, occlusive: (7) Hyperlipidemia LDL goal <70: (8) Hypertension: (9) Lumbar radiculopathy: Admission and Anticipated Discharge Date Admission Date: May 08, 2024 Supervising Physician Co-Signing Physician Notes I personally examined the patient and verified all charles points of history and exam, discussed case, and agree with decision making with Dr Whitley feeling ok. psych input appreciated vitals noted nad heent nc at mmm breathing unlabored no accessory muscles good effort skin no rashes no pallor or icterus neuro no focal deficits APAP OD - doing well. NAC protocol. fortunately low risk on nomogram but given almost zero risk w NAC agree w treatment anyway -for inpt psych otherwise as above Subjective Pt is a 54 yo female with PMedHx of depression, schizoaffective disorder, ETOH use disorder, previous suicide attempt by acetaminophen, and chronic pain presented to the ED with reported suicide attempt with 50+ tabs of Tylenol and alcohol. This morning patient reports she is feeling tired. She denies chest pain, SOB, nausea, or vomiting. She states she has had diarrhea since her hip s urgery. She is having a lot of pain at her L hip. Physical Exam Constitutional: well developed and well nourished Elevated BPs this morning. Respiratory: normal respiratory effort, lungs clear to auscultation Cardiovascular: RRR, no murmur, no edema Gastrointestinal (Abdomen): normal bowel sounds, soft, nontender, no hepatosplenomegaly Skin: no rashes, warm and dry Incision at posterolateral L hip with radames in place Neurologic: PERRL, EOMI, accommodation nl, no face palsy, no dysarthria Psychiatric: Orientation: alert and oriented x 3 Mood: + depressed mood Suicidal Thoughts: + reports suicidal thoughts Reports episodes of hearing voices and hallucinations Results & Data Results & Data Vital Signs (Past 12 Hours) Vital Signs Temp Pulse Pulse Resp BP BP Pulse Ox 05/08/24 06:59 87 05/08/24 05:39 95 H 20 160/99 H 95 05/08/24 04:30 87 16 165/93 H 97 05/08/24 04:00 86 17 135/91 96 05/08/24 03:30 85 19 160/102 H 98 05/08/24 03:00 85 17 160/95 H 98 05/08/24 03:00 85 22 160/95 H 98 05/08/24 02:30 88 22 141/95 H 96 05/08/24 02:01 80 20 143/124 H 99 05/08/24 01:44 05/08/24 01:44 36.9 C 82 18 124/80 97 05/08/24 01:30 85 21 124/80 96 05/08/24 01:00 134/103 H 05/08/24 00:52 77 05/08/24 00:45 143/87 H 05/08/24 00:45 143/87 H 05/08/24 00:45 143/87 H 05/08/24 00:42 78 14 98 05/08/24 00:33 75 15 96 05/08/24 00:16 139/69 05/08/24 00:15 70 18 96 05/08/24 00:06 81 15 142/92 H 97 05/07/24 23:45 71 19 144/91 H 95 05/07/24 23:39 71 19 127/86 96 05/07/24 23:00 86 15 131/92 97 05/07/24 22:57 75 18 124/76 95 05/07/24 22:30 142/90 H 05/07/24 22:27 83 16 96 05/07/24 22:21 76 25 H 95 05/07/24 22:15 139/88 05/07/24 22:09 72 20 95 05/07/24 22:00 133/85 05/07/24 22:00 133/85 05/07/24 22:00 133/85 05/07/24 22:00 72 18 97 05/07/24 21:57 86 20 97 05/07/24 21:45 78 18 94 05/07/24 21:45 133/72 05/07/24 21:45 133/72 05/07/24 21:42 78 20 95 05/07/24 21:36 82 17 95 05/07/24 21:30 125/80 05/07/24 21:30 125/80 05/07/24 21:00 133/76 05/07/24 21:00 133/76 05/07/24 21:00 90 16 95 05/07/24 20:59 87 05/07/24 20:55 05/07/24 20:22 36.7 C 93 H 20 120/79 95 O2 Del Method 05/08/24 06:59 05/08/24 05:39 05/08/24 04:30 05/08/24 04:00 05/08/24 03:30 05/08/24 03:00 Room Air 05/08/24 03:00 Room Air 05/08/24 02:30 Room Air 05/08/24 02:01 Room Air 05/08/24 01:44 Room Air 05/08/24 01:44 Room Air 05/08/24 01:30 Room Air 05/08/24 01:00 05/08/24 00:52 05/08/24 00:45 05/08/24 00:45 05/08/24 00:45 05/08/24 00:42 05/08/24 00:33 05/08/24 00:16 05/08/24 00:15 05/08/24 00:06 Room Air 05/07/24 23:45 Room Air 05/07/24 23:39 Room Air 05/07/24 23:00 Room Air 05/07/24 22:57 Room Air 05/07/24 22:30 05/07/24 22:27 Room Air 05/07/24 22:21 05/07/24 22:15 05/07/24 22:09 05/07/24 22:00 05/07/24 22:00 05/07/24 22:00 05/07/24 22:00 05/07/24 21:57 05/07/24 21:45 05/07/24 21:45 05/07/24 21:45 05/07/24 21:42 05/07/24 21:36 05/07/24 21:30 05/07/24 21:30 05/07/24 21:00 05/07/24 21:00 05/07/24 21:00 05/07/24 20:59 05/07/24 20:55 Room Air 05/07/24 20:22 Room Air Laboratory Results 05/08/24 05/07/24 05/07/24 Range/Units 05:52 23:25 20:41 WBC 9.31 9.00 (4.8-10.8) K/ul RBC 4.32 4.38 (4.20-5.40) M/uL Hgb 12.9 12.9 (12.0-16.0) g/dl Hct 37.7 37.8 (37.0-47.0) % MCV 87.3 86.3 (80.0-100.0) fL MCH 29.9 29.5 (25.0-34.0) pg MCHC 34.2 34.1 (32.0-36.0) g/dL RDW Std Deviation 59.1 H 59.2 H (36.4-46.3) fL RDW Coeff of Brooke 18.8 H 18.8 H (11.5-14.5) % Plt Count 418 H 469 H (130-400) K/uL MPV 10.1 10.2 (9.4-12.4) fL Immature Gran % (Auto) 0.4 0.3 % Neut % (Auto) 74.6 58.7 % Lymph % (Auto) 18.3 29.7 % [place] % (Auto) 5.3 9.0 % Eos % (Auto) 1.2 1.6 % Baso % (Auto) 0.2 0.7 % Neut # (Auto) 6.95 H 5.29 (1.40-6.50) K/uL Lymph # (Auto) 1.70 2.67 (1.20-3.40) K/uL [place] # (Auto) 0.49 0.81 H (0.11-0.59) K/uL Eos # (Auto) 0.11 0.14 (0.00-0.50) K/uL Baso # (Auto) 0.02 0.06 (0.00-0.20) K/uL Immature Gran # (Auto) 0.04 0.03 (0.01-0.20) K/uL PT 10.7 (9.0-12.0) Seconds INR 1.0 (0.9-1.1) Sodium 137 139 (136-145) mmol/L Potassium 3.3 L 3.6 (3.5-5.1) mmol/L Chloride 107 108 H (98-107) mmol/L Carbon Dioxide 20 L 19 L (21-32) mmol/L Anion Gap 10 12 H (3-11) BUN 4 L 6 (6-23) mg/dl Creatinine 0.45 L 0.54 L (0.6-1.2) mg/dl Est Cr Clr Drug Dosing 167.0 Not Reportable Est GFR ( Amer) 131.7 124.0 ml/min Est GFR (Non-Af Amer) 113.6 107.0 ml/min BUN/Creatinine Ratio 8.9 L 11.1 (10-20) Glucose 116 H 114 H (70-99(Fasting)) mg/dl Calcium 9.0 9.6 (8.6-10.3) mg/dl Magnesium 1.9 (1.7-2.4) mg/dl Total Bilirubin 0.5 0.4 (0.2-1.0) mg/dl AST 11 L 13 (13-39) U/L ALT 10 12 (7-52) U/L Alkaline Phosphatase 84 102 (34-104) U/L Total Protein 6.1 6.7 (6.0-8.3) gm/dl Albumin 3.4 3.8 (3.4-5.0) gm/dl Globulin 2.7 2.9 (2.5-4.0) gm/dl Albumin/Globulin Ratio 1.3 1.3 (0.9-2) TSH 6.569 H (0.300-4.500) uIu/ml Urine Color Urine Appearance (Clear) Urine pH (4.5-7.5) Ur Specific [place] (1.000-1.030) Urine Protein (Negative) Urine Glucose (UA) (Negative) Urine Ketones (Negative) Urine Blood (Negative) Urine Nitrite (Negative) Urine Bilirubin (Negative) Urine Urobilinogen (Negative) Ur Leukocyte Esterase (Negative) POC Ur Test Salicylates < 3.0 L (3.0-30) mg/dl Urine Opiates Screen (Neg) Ur Methadone, Qual (Neg) Urine Fentanyl Screen (Neg) Acetaminophen 7 L 70 H 166 H* (10-30) ug/ml Urine Barbiturates (Neg) Ur Phencyclidine (PCP) (Neg) U Amphetamin/Meth Scrn (Neg) MDMA (Ecstasy) Screen (Neg) U Benzodiazepines Scrn (Neg) Ur Cocaine Metabolite (Neg) U Marijuana (THC) Screen (Neg) Ethyl Alcohol mg/dL 74.7 H (<10.0) mg/dl SARS-CoV-2, RNA, NAAT (NEGATIVE) 05/07/24 Range/Units 20:40 WBC (4.8-10.8) K/ul RBC (4.20-5.40) M/uL Hgb (12.0-16.0) g/dl Hct (37.0-47.0) % MCV (80.0-100.0) fL MCH (25.0-34.0) pg MCHC (32.0-36.0) g/dL RDW Std Deviation (36.4-46.3) fL RDW Coeff of Brooke (11.5-14.5) % Plt Count (130-400) K/uL MPV (9.4-12.4) fL Immature Gran % (Auto) % Neut % (Auto) % Lymph % (Auto) % [place] % (Auto) % Eos % (Auto) % Baso % (Auto) % Neut # (Auto) (1.40-6.50) K/uL Lymph # (Auto) (1.20-3.40) K/uL [place] # (Auto) (0.11-0.59) K/uL Eos # (Auto) (0.00-0.50) K/uL Baso # (Auto) (0.00-0.20) K/uL Immature Gran # (Auto) (0.01-0.20) K/uL PT (9.0-12.0) Seconds INR (0.9-1.1) Sodium (136-145) mmol/L Potassium (3.5-5.1) mmol/L Chloride (98-107) mmol/L Carbon Dioxide (21-32) mmol/L Anion Gap (3-11) BUN (6-23) mg/dl Creatinine (0.6-1.2) mg/dl Est Cr Clr Drug Dosing Est GFR ( Amer) ml/min Est GFR (Non-Af Amer) ml/min BUN/Creatinine Ratio (10-20) Glucose (70-99(Fasting)) mg/dl Calcium (8.6-10.3) mg/dl Magnesium (1.7-2.4) mg/dl Total Bilirubin (0.2-1.0) mg/dl AST (13-39) U/L ALT (7-52) U/L Alkaline Phosphatase (34-104) U/L Total Protein (6.0-8.3) gm/dl Albumin (3.4-5.0) gm/dl Globulin (2.5-4.0) gm/dl Albumin/Globulin Ratio (0.9-2) TSH (0.300-4.500) uIu/ml Urine Color Yellow Urine Appearance Clear (Clear) Urine pH 5.0 (4.5-7.5) Ur Specific [place] 1.007 (1.000-1.030) Urine Protein Negative (Negative) Urine Glucose (UA) Negative (Negative) Urine Ketones Negative (Negative) Urine Blood Negative (Negative) Urine Nitrite Negative (Negative) Urine Bilirubin Negative (Negative) Urine Urobilinogen Negative (Negative) Ur Leukocyte Esterase Negative (Negative) POC Ur Test Pending Salicylates (3.0-30) mg/dl Urine Opiates Screen Neg (Neg) Ur Methadone, Qual Neg (Neg) Urine Fentanyl Screen Neg (Neg) Acetaminophen (10-30) ug/ml Urine Barbiturates Neg (Neg) Ur Phencyclidine (PCP) Neg (Neg) U Amphetamin/Meth Scrn Neg (Neg) MDMA (Ecstasy) Screen Neg (Neg) U Benzodiazepines Scrn Neg (Neg) Ur Cocaine Metabolite Neg (Neg) U Marijuana (THC) Screen Neg (Neg) Ethyl Alcohol mg/dL (<10.0) mg/dl SARS-CoV-2, RNA, NAAT NEGATIVE (NEGATIVE) (1) Suicide attempt by acetaminophen overdose Encounter type: initial encounter Qualified Code(s): T39.1X2A - Poisoning by 4-Aminophenol derivatives, intentional self-harm, initial encounter (3) Schizoaffective disorder Schizoaffective disorder type: unspecified Qualified Code(s): F25.9 - Schizoaffective disorder, unspecified
[2024-05-08] MEDS: GABAPENTIN 400 MG CAP PO SCH (09:20)
[2024-05-08] MEDS: buPROPion SR 150 MG TABCR PO SCH (09:20)
[2024-05-08] MEDS: SENNA 8.6 MG TAB PO SCH (09:28)
[2024-05-08] MEDS: METOPROLOL SUCC 25MG EXT REL TAB PO SCH (09:28)
[2024-05-08] MEDS: CLOPIDOGREL BISULFATE 75 MG TAB PO SCH (09:29)
[2024-05-08] MEDS: hydrOXYzine HCl 25 MG TAB PO SCH (09:30)
[2024-05-08] MEDS: BENZTROPINE MESYLATE 0.5 MG TAB PO SCH (09:30)
[2024-05-08] MEDS: POTASSIUM CHLORIDE CRTAB 20 MEQ TABCR PO STA (09:31)
--- NOTE | 2024-05-08 15:22 | Psychiatric Consultation ---
Date of Consultation May 08, 2024 Impression / Recommendations Impression 54-year-old female with history of schizoaffective disorder depressed type, TIA, osteoarthritis, hypertension, hyperlipidemia, alcohol abuse presents with a suicide attempt where she gradually took 50+ tablets of Tylenol and consumed alcohol in the context of hip pain status post surgery and familial conflict. Presentation concerning for schizoaffective disorder versus PTSD. Suicide attempt was impulsive the patient reported history of past attempts being in a similar fashion. Concern for depressed mood state. Patient would benefit for inpatient psychiatry admission for medication management and connection to outpatient counseling. patient agreeable to voluntary inpatient psychiatric hospitalization. Labs reviewed: TSH elevated and AST slightly elevated; UA and CBC within expected limits; Tylenol levels are trending downward. Overall, I spent a total of 70 minutes with this case including review of chart records, nursing report, review of lab work, direct evaluation of the patient at bedside, counseling the patient, discussion of the patient with the hospitalist provider, discussion with the psychiatric liaison during clinical rounds, and documentation in the electronic health record. (1) Suicide attempt by acetaminophen overdose: Encounter type: initial encounter Qualified Code(s): T39.1X2A - Poisoning by 4-Aminophenol derivatives, intentional self-harm, initial encounter (2) Acetaminophen toxicity: (3) Schizoaffective disorder, depressive type: (4) Unspecified psychosis not due to a substance or known physiological condition: (5) Depression: Depression Type: unspecified Qualified Code(s): F32.A - Depression, unspecified (6) Post traumatic stress disorder (PTSD): (7) Alcohol abuse: (8) S/P total left hip arthroplasty: Plan Patient agreeable to inpatient psychiatry admission once medically cleared. Continue home psychiatric medications. Psych History Identifying Data 54-year-old female with history of schizoaffective disorder depressed type, TIA, osteoarthritis, hypertension, hyperlipidemia, alcohol abuse presents with a suicide attempt where she gradually took 50+ tablets of Tylenol and consumed alcohol in the context of hip pain status post surgery and familial conflict. Chief Complaint "Took too many pills" History of Present Illness patient complains of suicidal ideation and taking too many pills. Reports having hip pain and initially took tramadol in the morning. She got into a fight with her ex- and drank beers with him. She drank 2 beers. The argument was about him helping around the house. She then contemplated taking Tylenol to "end [her] life" and ingested 7-8 Tylenol pills. She waited an hour and then she took the rest of the her bottle. She immediately vomited and saw pills in the vomitus. She told her sister who then called her mom and mom called 911. She denies current suicidal ideation. She reports past overdoses that were impulsive. Says she currently sees a psychiatrist and has a pillowcase folder and does not see a counselor. Complains of increasing pain impacting sleep that was present prior to hip surgery and continues to be present. Complains of inadequate sleep, low energy, amotivation, feelings of "worthlessness", poor appetite. Complains of visual hallucinations where she sees the outline of "Indians" and "horses". She says she has trouble with seeing far distances. Reports having random voices for the past 5 years and occurs mostly inside her head. Recent voices are of the shipyard painter helper testifying against her. Denies feeling paranoid and says she feels safe in the hospital. Reports past 3-day periods of decreased need for sleep with elevated mood, energy and goal directed activity however reports she was on drugs when this happened. Complains of distressing dreams that wake her up "abruptly" and is diaphoretic, sweating, anxious. reports high anxiety in public situations with many people and hypervigilant. Smoked marijuana yesterday2 hits by burning flower through a pipe. Reports occasional marijuana use. Drinks 2-3 beers a day and reports multiple sober days including 3 days this last weekend. Past methamphetamine problem and sober for 1 yearinhaled methamphetamine. Previously history of bath salts and reported having rotting teeth as a result of use. Reports drivers of stimulant use as improving energy and mood. Liaison Note : "Met with patient, along with Dr. Senior, for psych consult service. Patient sitting up in bed with lunch tray. She is A&Ox3, able to answer questions, garbled/slurred speech at times, may be d/t not having her dentures. Patient has a history of Schizoaffective d/o, polysubstance abuse. She reports previous inpatient psych treatment, 3x on . Patient reports history of overdose as suicide attempts, many in which have been impulsive. Like previously, patient reports overdosing on Tylenol yesterday. She first took several Tylenol d/t hip pain, after running out of Tramadol; an hour later she decided to take the rest as she was feeling overwhelmed with the pain, her home is "a mess" and "Sukumar (ex-boyfriend/father of children) was being a nicholas". Patient denies any current thoughts of suicide. She notes depressive symptoms and would benefit from inpatient psych admission, she is agreeable and motivated for treatment at this time. Patient has a psych provider @ [facility] and a CM (Maggie) through [facility]. Patient does have a therapist or other professional supports. She has an extensive history of substance use; currently drinking 2-3 16oz beers daily. She reports using Meth last ~1 year ago. Has medical marijuana, uses "a couple hits" daily. Patient reports history and recent auditory/visual hallucinations, but is able to reality test. She was recently staying with her mother post hip surgery (04/24) for assistance and then returned to her own home with live in ex-boyfriend. Patient reports compliance with psych medications including: Invega Hafyera, Wellbutrin, Zoloft, Trazodone and Lamictal. Patient is able to contract for safety in the hospital. Psych team will continue to follow and pursue inpatient treatment when medically cleared. " Allergies Allergy/AdvReac Type Severity Reaction Status Date / Time No Known Allergies Allergy Verified 04/24/24 06:09 Home Medications Medication Instructions Recorded Confirmed Type benztropine 0.5 mg tablet 0.5 mg PO TID 04/02/21 05/07/24 History bupropion HCl 150 mg tablet,12 hr 300 mg PO QAM 09/29/21 05/07/24 History sustained-release (Wellbutrin SR) atorvastatin 80 mg tablet (Lipitor) 80 mg PO QPM #90 tabs 12/15/21 05/07/24 Rx clopidogrel 75 mg tablet (Plavix) 75 mg PO QAM #90 tabs 05/20/22 05/07/24 Rx metoprolol succinate 25 mg 25 mg PO DAILY #90 tabs 05/20/22 05/07/24 Rx tablet,extended release 24 hr (Toprol XL) nitroglycerin 0.3 mg sublingual 0.3 mg sublingual Q5M PRN chest 05/20/2205/07 Rx tablet pain #7 tabs hydroxyzine HCl 50 mg tablet 50 mg PO QAM 08/16/23 05/07/24 History levonorgestrel 21 mcg/24 hr (up to 1 device intrauterine UD 08/16/23 05/07/24 History 8 years) 52 mg intrauterine device (Mirena) cyclobenzaprine 10 mg tablet 10 mg PO HS #30 tabs 10/06/23 05/07/24 Rx gabapentin 300 mg capsule 800 mg PO BID 10/06/23 05/07/24 History trazodone 100 mg tablet 200 mg PO HS 10/06/23 05/07/24 History tizanidine 4 mg tablet 4 mg PO BID PRN muscle spasticity 02/15/24 05/07/24 Rx #30 tabs lamotrigine 100 mg tablet 100 mg PO HS 03/26/24 05/07/24 History naltrexone microspheres 380 mg 380 mg IM UD 03/26/24 05/07/24 History intramuscular suspension,extended release (Vivitrol) paliperidone palm (6 month) 1,560 1,560 mg IM UD 03/26/24 05/07/24 History mg/5 mL intramuscular syringe (Invega Danny) sertraline 100 mg tablet 200 mg PO HS 03/26/24 05/07/24 History Wheeled Walker #1 ea 04/09/24 05/07/24 Rx acetaminophen 500 mg tablet 1,000 mg (2 x 500 mg) PO TID pain 04/22/24 05/07/24 Rx (Tylenol Extra Strength) 30 days #180 tabs ondansetron 4 mg disintegrating 4 mg PO Q8 PRN nausea #20 tabs 04/22/24 05/07/24 Rx tablet sennosides 8.6 mg tablet (Senokot) 8.6 mg PO BID prevent constipation 04/22/24 05/07/24 Rx 14 days #28 tabs tramadol 50 mg tablet 50 - 100 mg (1 - 2 x 50 mg) PO Q6 04/30/24 05/07/24 Rx PRN pain #40 tabs Patient History Medical History 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 Thyroid nodule had followed with ENT in the past Low back pain Hypertension Hyperlipidemia Hx of gastroesophageal reflux (GERD) well controlled and stable gets occ reflux- no medications at this time Chronic pain Anxiety and depression Depression with suicidal ideation hx Auditory hallucinations chronic history- no hallucinations re: hurting others or self chronic and stable - follows with psych- feels controlled per patient TIA (transient ischemic attack) ~ Most recent 2018, no residual effects Also hx of TIAs 2010, 2011, 2014 per records Schizoaffective disorder, depressive type hx Medical non-compliance hx STEMI (ST elevation myocardial infarction) ~2013, cardiac cath w/2 stents placed, [facility] follows only with PCP Surgical History Hx of cardiac cath ~2015, [facility], x2 stents; does not f/u cardio anymore. H/O heart artery stent ~2015, [facility], x2 stents; does not f/u cardio anymore. Family History Mother Diabetes Father , age 70 of pancreatic cancer. Heart disease Hypertension Diabetes Pancreatic cancer Prostate cancer Grandmother (Maternal) Breast cancer Other Cancer Denies family history of Ovarian cancer Colorectal cancer Social History Smoking Status: Former smoker Tobacco Type: Cigarettes Cigarettes Per Day: 10 cigs/day; Second Hand Exposure: No; Do You Dip or Chew Tobacco: No; Hx Alcohol Use: Yes Alcohol type: beer Alcohol Intake Frequency Comment: Three 32 ounce cans of Monae Light beer per day Hx Substance Use: No Preferred Language: Nigerian Communication Ability: Effective Visual Impairment: No Limitations Hearing Ability: Normal Features Editor Required: No Beliefs That Will Affect Care: None Current Living Situation: Significant Other Current Living Situation Comment: will be staying with mom after surgery current occupational status: previously employed current occupation: 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 Feels Safe at Home: No Is there a partner from a previous relationship who is making you feel unsafe now?: No Safety Concerns: Afraid for Others in Home Assistive Devices: Walker and Wheelchair Physical Exam Mental Examination: Appearance: Unkempt (laying down bc of pain) Eye Contact: Maintains Eye Contact Motor Behavior: Unremarkable Speech: Slurred Mood: Euthymic Affect: Constricted Thought Process: Intact and Linear Thought Content: Intact Hallucinations: None Insight: Poor Judgement: Poor Vital Signs (Past 24 Hours): Last Vital Signs Temp 36.9 C 05/08/24 01:44 Pulse 86 05/08/24 14:59 Resp 16 05/08/24 14:59 BP 136/89 05/08/24 12:31 Pulse Ox 94 05/08/24 14:59 O2 Del Method Room Air 05/08/24 14:59 Results & Data (PSY) Medications Administered Benztropine Mesylate (Benztropine Mesylate 0.5 Mg Tab) 0.5 mg PO TID [facility] Stop: 06/07/24 08:59 Last Admin: 05/08/24 13:02 Dose: 0.5 mg Documented By: Admin: 05/08/24 09:30 Dose: 0.5 mg Documented By: KULWINDER Bupropion HCl (Bupropion Sr 150 Mg Tabcr) 300 mg PO [facility] Stop: 06/07/24 08:59 Last Admin: 05/08/24 09:20 Dose: 300 mg Documented By: KULWINDER Clopidogrel Bisulfate (Clopidogrel Bisulfate 75 Mg Tab) 75 mg PO [facility] Stop: 06/07/24 08:59 Last Admin: 05/08/24 09:29 Dose: 75 mg Documented By: KULWINDER Gabapentin (Gabapentin 400 Mg Cap) 800 mg PO BID [facility] Stop: 06/07/24 08:59 Last Admin: 05/08/24 09:20 Dose: 800 mg Documented By: KULWINDER Hydroxyzine HCl (Hydroxyzine Hcl 25 Mg Tab) 50 mg PO [facility] Stop: 06/07/24 08:59 Last Admin: 05/08/24 09:30 Dose: 50 mg Documented By: KULWINDER Acetylcysteine 9,270 mg/ (Dextrose) 1,046.35 mls @ 62.5 mls/hr IV ONCE ONE; Protocol Stop: 05/08/24 20:55 Last Admin: 05/08/24 05:34 Dose: 62.5 mls/hr Documented By: JUDD Ibuprofen (Ibuprofen 600 Mg Tab) 600 mg PO Q6H PRN PRN Reason: Pain & Pre PT Stop: 06/07/24 05:22 Last Admin: 05/08/24 07:04 Dose: 600 mg Documented By: KULWINDER Metoprolol Succinate (Metoprolol Succ 25mg Ext Rel Tab) 25 mg PO DAILY [facility] Stop: 06/07/24 08:59 Last Admin: 05/08/24 09:28 Dose: 25 mg Documented By: KULWINDER Miscellaneous (Naltrexone Microspheres [Vivitrol]: Order Awaiting Action) 1 each N/A DAILY [facility] Stop: 06/07/24 08:59 Last Admin: 05/08/24 09:33 Dose: Not Given Documented By: KULWINDER Sennosides (Senna 8.6 Mg Tab) 8.6 mg PO BID [facility] Stop: 06/07/24 08:59 Last Admin: 05/08/24 09:28 Dose: 8.6 mg Documented By: KULWINDER Tramadol HCl (Tramadol Hcl 50 Mg Tablet) 100 mg PO Q4H PRN PRN Reason: SEVERE Pain (7,8,9,10) Stop: 06/07/24 05:22 Last Admin: 05/08/24 09:32 Dose: 100 mg Documented By: Admin: 05/08/24 05:33 Dose: 100 mg Documented By: JUDD [place] [address] IN/OBS CONSULT LVL 4,60M Patient Type New History Comprehensive Exam Comprehensive Medical Decision Making High Complexity Diagnoses Suicide attempt by acetaminophen overdose T39.1X2A Encounter type: initial encounter Acetaminophen toxicity T39.1X1A Schizoaffective disorder, depressive type F25.1 Unspecified psychosis not due to a substance or known physiological condition F29 Depression F32.A Depression Type: unspecified Post traumatic stress disorder (PTSD) F43.10 Alcohol abuse F10.10 S/P total left hip arthroplasty Z96.642
[2024-05-08 18:18] LABS: Albumin Level 3.4 gm/dl (3.4-5.0); Bilirubin,Total 0.3 mg/dl (0.2-1.0)
[2024-05-08 18:27] LABS: Prothrombin Time 11.1 Seconds (9.0-12.0)
--- NOTE | 2024-05-08 20:14 | Billing Data ---
Date of Service May 08, 2024 Coding Level of Care Code 33505 INT INP/OBS CARE
--- NOTE | 2024-05-08 20:58 | Electrocardiogram Report ---
Test Reason : Blood Pressure : / mmHG Vent. Rate : 076 BPM Atrial Rate : 076 BPM P-R Int : 154 ms QRS Dur : 102 ms QT Int : 426 ms P-R-T Axes : 056 036 043 degrees QTc Int : 479 ms Normal sinus rhythm Possible Inferior infarct , age undetermined Prolonged QT Abnormal ECG When compared with ECG of 09-APR-2024 11:33, No significant change was found Confirmed by Sander Alfred ([id number]) on 05/08/2024 8:57:35 PM Referred By: Confirmed By:Sander Alfred
[2024-05-08] MEDS: lamoTRIgine 100 MG TAB PO SCH (21:02)
[2024-05-08] MEDS: ATORVASTATIN 40 MG TAB PO SCH (21:02)
[2024-05-08] MEDS: traZODone HCL 100 MG TAB PO SCH (21:02)
[2024-05-08] MEDS: SERTRALINE HCL 100 MG TABLET PO SCH (21:02)
[2024-05-08] MEDS: CYCLOBENZAPRINE HCL 10 MG TAB PO SCH (21:03)
[2024-05-09 07:19] LABS: Basophils # (auto) 0.04 K/uL (0.00-0.20); Basophils % (auto) 0.5 %; Eosinophils # (auto) 0.25 K/uL (0.00-0.50); Eosinophils % (auto) 3.4 %; Hemoglobin 11.6 g/dl (12.0-16.0); Immature Granulocytes # (auto) 0.01 K/uL (0.01-0.20); Immature Granulocytes % (auto) 0.1 %; Lymphocytes # (auto) 2.11 K/uL (1.20-3.40); Lymphocytes % (auto) 28.7 %; Mean Corpuscular Hemoglobin 29.7 pg (25.0-34.0); Mean Corpuscular Hgb Conc 33.1 g/dL (32.0-36.0); Mean Corpuscular Volume 89.7 fL (80.0-100.0); Monocytes # (auto) 0.52 K/uL (0.11-0.59); Monocytes % (auto) 7.1 %; Neutrophils # (auto) 4.41 K/uL (1.40-6.50); Neutrophils % (auto) 60.2 %; Platelet Count 349 K/uL (130-400); RDW Coefficient of Variation 19.2 % (11.5-14.5); RDW Standard Deviation 62.9 fL (36.4-46.3); White Blood Count 7.34 K/ul (4.8-10.8)
[2024-05-09 08:10] LABS: Prothrombin Time 10.9 Seconds (9.0-12.0)
[2024-05-09 08:20] LABS: Albumin Globulin Ratio 1.3 (0.9-2); Albumin Level 3.2 gm/dl (3.4-5.0); BUN Creatinine Ratio 8.2 (10-20); Bilirubin,Total 0.3 mg/dl (0.2-1.0); Calcium 8.9 mg/dl (8.6-10.3); Creatinine Clr Calc Pharmacy 153.4 ml/min; Est GFR (Non-African American) 110.5 ml/min; Globulin 2.5 gm/dl (2.5-4.0); Magnesium 1.6 mg/dl (1.7-2.4); Phosphorus 3.3 mg/dl (2.5-4.9); Potassium 3.5 mmol/L (3.5-5.1); Total Protein 5.7 gm/dl (6.0-8.3)
[2024-05-09] MEDS: MAGNESIUM SULFATE / D5W 1 GM/100 ML BAG IV SCH (09:08)
--- NOTE | 2024-05-09 12:17 | Discharge Summary ---
Date of Service May 09, 2024 Admission HPI Per Admitting Provider Jared is a 54-year-old woman with a past medical history of alcohol use disorder, schizoaffective disorder, anxiety, depression hypertension, hyperlipidemia, CAD (s/p stents 2016), osteoarthritis of left hip, lumbar spinal stenosis, who presented to the ER via EMS after intentionally ingesting 50+ tablets of acetaminophen 500 mg. Timeline of ingestion is unclear she gave varying accounts on arrival and at admission however, she admits to also taking with alcohol. In the ER, she was found to be mildly somnolent but in no acute distressvital signs were stable. Lab workup was notable for a bicarbonate of 19 slight anion gap-12, TSH of 6.569, EtOH of 74.7 and an acetaminophen level of 166. EKG was unremarkable without evidence of ischemia or interval prolongation. Poison control was contacted recommended initiation of NAC protocol. Subsequent acetaminophen level 4 hours later improved markedly to 70. Hospitalist service was then consulted for admission. On admission, patient was awake and alert but drowsy. She was able to corroborate HPI. ROS + hip pain, and headache. Principal Diagnosis intentional tylenol overdose Discharge Exam Gen: well appearing patient in NAD HEENT: AT NC MMM Resp: CTAB no wheezing no increased work of breathing CV: RRR no m/r/g clinically well perfused Abd: non-distended MSK: no obvious deformities Skin: no rashes or bruising Neuro: alert and oriented Psych: appropriate mood and affect Discharge Data Allergies Allergy/AdvReac Type Severity Reaction Status Date / Time No Known Allergies Allergy Verified 04/24/24 06:09 Consultations 05/08/24 00:28 ED Decision to Admit Stat 05/08/24 01:13 Consult Psychiatry Routine Ordered Studies Suicide attempt by acetaminophen overdose: Acetaminophen overdose/acetaminophen toxicity due to suicide attempt. Intentional overdose. Tylenol level 166 on arrival has downtrended to < 3. Poison control rec NAC protocol. CBC, CMP, and EKG normal. Patient awake and alert. No signs of mental status alteration. Psych rec inpatient psych stay. Cleared from a medical perspective for inpatient psych. Recent THR Left hip arthoscopy done about a week ago. On tramadol and ibuprofen for pain control - continue. Hold tylenol for now. Recommend outpatient f/u with surgeon. Schizoaffective disorder vs PTSD vs MDD Continue home meds of sertraline, Benztropine, Bupropion, lamotrigine, and gabapentin. Would defer to inpatient psych for med management/regimen selection. CAD Continue home meds of atorvastatin, clopidogrel, metoprolol Hospital Course (1) Suicide attempt by acetaminophen overdose: (2) Acetaminophen toxicity: (3) Schizoaffective disorder: (4) Anxiety and depression: (5) Alcohol abuse: (6) Coronary artery disease, occlusive: (7) Hyperlipidemia LDL goal <70: (8) Hypertension: (9) Lumbar radiculopathy: Total Time Total Time Spent Total Time Spent (In Minutes): <30 Discharge Plan Discharge Items Patient Disposition: Transfer Behavioral Health Fac Reason For Visit: INTENTIONAL TYLENOL OVERDOSE Discharge Diagnosis: intentional tylenol OD Activity: Per Instructions section Non-emergency contact: Primary Care Provider and Psychiatrist Call non-emergency contact if: your temperature is above 101.5 and your wound has increased drainage Follow-up/Referrals: Sabiha Hough, [Primary Care Provider] - Diet: Regular Addtl Attending Provider Instructions: #Suicide attempt by acetaminophen overdose: Acetaminophen overdose/acetaminophen toxicity due to suicide attempt. Intentional overdose. Tylenol level 166 on arrival has downtrended to < 3. Poison control rec NAC protocol. CBC, CMP, and EKG normal. Patient awake and alert. No signs of mental status alteration. Psych rec voluntary inpatient psych stay. Cleared from a medical perspective for inpatient psych. #Recent THR Left hip done about a week ago. On tramadol and ibuprofen for pain control - continue. Hold tylenol for now. Recommend outpatient f/u with surgeon. Schizoaffective disorder vs PTSD vs MDD Continue home meds of sertraline, Benztropine, Bupropion, lamotrigine, and gabapentin. Would defer to inpatient psych for med management/regimen selection. CAD Continue home meds of atorvastatin, clopidogrel, metoprolol Pending Studies at Discharge: No Stand-Alone Forms: My [facility] Skilled Items DNR: No Lines: None Urinary Catheter: No Medications and DC Order Prescriptions: Continued (DME) Wheeled Walker Misc See Rx Instructions .MEDSUPPLY Qty: 1 0RF Rx Instructions: As directed ondansetron 4 mg tablet,disintegrating 4 mg PO Q8 PRN (Reason: nausea) Qty: 20 1RF Rx Instructions: Take as needed for nausea sennosides [Senokot] 8.6 mg tablet 8.6 mg PO BID 14 Days Qty: 28 0RF Rx Instructions: Take two times a day to prevent/treat constipation tramadol 50 mg tablet 50 - 100 mg PO Q6 PRN (Reason: pain) Qty: 40 0RF Rx Instructions: Take as needed for pain clopidogrel [Plavix] 75 mg tablet 75 mg PO QAM Qty: 90 1RF metoprolol succinate [Toprol XL] 25 mg tablet extended release 24 hr 25 mg PO DAILY Qty: 90 1RF nitroglycerin 0.3 mg tablet, sublingual 0.3 mg sublingual Q5M PRN (Reason: chest pain) Qty: 7 0RF Rx Instructions: do not exceed 3 doses per episode gabapentin 300 mg capsule 800 mg PO BID trazodone 100 mg tablet 200 mg PO HS cyclobenzaprine 10 mg tablet 10 mg PO HS Qty: 30 2RF Mirena 21 mcg/24 hours (8 yrs) 52 mg intrauterine device 1 device intrauterine UD hydroxyzine HCl 50 mg tablet 50 mg PO QAM atorvastatin [Lipitor] 80 mg tablet 80 mg PO QPM Qty: 90 1RF tizanidine 4 mg tablet 4 mg PO BID PRN (Reason: muscle spasticity) Qty: 30 1RF bupropion HCl [Wellbutrin SR] 150 mg tablet sustained-release 12 hr 300 mg PO QAM benztropine 0.5 mg tablet 0.5 mg PO TID sertraline 100 mg tablet 200 mg PO HS lamotrigine 100 mg tablet 100 mg PO HS Vivitrol 380 mg suspension,extended rel recon 380 mg IM UD Rx Instructions: every 4 weeks Invega Hafyera 1,560 mg/5 mL syringe 1,560 mg IM UD Rx Instructions: every 6 months Held acetaminophen [Tylenol Extra Strength] 500 mg tablet 1,000 mg PO TID 30 Days Qty: 180 0RF Hold Instructions: Resume on 05/18/24. Rx Instructions: Take 3 times per day to lessen pain. Discharge Orders: Discharge Order (Routine); Ordered 05/09/24 Ordered By: Bouchra Raimrez Admission Data Admit Date/Time: 05/08/24 01:00 Attending Provider: Philipp Alarcon Admit Provider: Charanjit Nixon Primary Care Provider: Sabiha Hough Other Providers: Shayla Siu; Stew Harrison; Natalio Childers Jr; Jamee Hardy; Ban Warren; Daren Senior; Long Champion Supervising Physician Co-Signing Physician Notes I personally examined the patient and verified all charles points of history and exam, discussed case, and agree with decision making with Dr Ramirez sleeping comfortably. no problems noted in discussion w resident physician or nursing. allowed pt to rest vitals noted nad sleeping comfortably breathing unlabored no accessory muscles good effort skin no rashes no pallor or icterus APAP OD - doing well. NAC protocol. fortunately low risk on nomogram but given almost zero risk w NAC agree w treatment anyway - now complete -for inpt psych, stable to go today otherwise as above Resident Activity Tracking Resident Involvement: Resident Care Provided Care Provided: Adult Hospital Medicine
--- NOTE | 2024-05-09 17:16 | Billing Data ---
Date of Service May 09, 2024 Coding Level of Care Code 94427 IN/OBS DISCH 30 MIN/LESS
== END 2024-05-09 17:26 | DRG 918 ==
LOC: ED 20:16 → EDINP 05-08 01:00 → SUATTDRO 05-08 01:00 → EDINP 05-08 02:49

== ENCOUNTER 2024-05-09 12:40 | Inpatient (IN) ==
[2024-05-09] MEDS ORDERED: BISMUTH SUBSALICYLATE LIQD 236 ML PO PRN (13:46)
[2024-05-09] MEDS ORDERED: SODIUM CHLORIDE 0.65% NA SOLN 45 ML (OCEAN) PRN (13:46)
[2024-05-09] MEDS ORDERED: hydrOXYzine HCl 25 MG TAB PO PRN ×2 (13:46)
[2024-05-09] MEDS ORDERED: ALUMINUM/MAGNESIUM SUSP 30 ML UDC PO PRN (13:46)
[2024-05-09] MEDS: traMADol HCL 50 MG TABLET PO PRN (19:40)
[2024-05-09] MEDS: BENZTROPINE MESYLATE 0.5 MG TAB PO ONE (21:39)
[2024-05-09] MEDS: CYCLOBENZAPRINE HCL 10 MG TAB PO ONE (21:39)
[2024-05-09] MEDS: lamoTRIgine 100 MG TAB PO SCH (21:40)
[2024-05-09] MEDS: GABAPENTIN 800 MG TAB PO SCH (21:40)
[2024-05-09] MEDS: traZODone HCL 100 MG TAB PO SCH (21:41)
[2024-05-09] MEDS: SERTRALINE HCL 100 MG TABLET PO SCH (21:41)
[2024-05-09] MEDS: ACETAMINOPHEN 325 MG TAB PO PRN (21:46)
[2024-05-10] MEDS ORDERED: ONDANSETRON 4 MG OD TAB PO PRN (09:41)
[2024-05-10] MEDS ORDERED: SENNA 8.6 MG TAB PO PRN (09:42)
[2024-05-10] MEDS ORDERED: NITROGLYCERIN SL 0.4 MG/TAB TAB SL PRN (09:45)
[2024-05-10] MEDS: CLOPIDOGREL BISULFATE 75 MG TAB PO SCH (10:24)
[2024-05-10] MEDS: DOCUSATE SODIUM 100 MG CAP PO SCH (10:24)
[2024-05-10] MEDS: buPROPion SR 150 MG TABCR PO SCH (10:24)
[2024-05-10] MEDS: CHOLECALCIFEROL 125 MCG (5,000 UNITS) TAB PO SCH (11:29)
[2024-05-10] MEDS: CYANOCOBALAMIN (B-12) 500 MCG TABLET PO SCH (13:35)
[2024-05-10] MEDS: DICLOFENAC SOD 1% GEL 100 GM TUBE EXT SCH (13:35)
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
[2024-05-10] MEDS: ATORVASTATIN 40 MG TAB PO SCH (21:02)
[2024-05-10] MEDS: CYCLOBENZAPRINE HCL 10 MG TAB PO SCH (21:03)
--- NOTE | 2024-05-11 08:37 | Psychiatric Progress Note ---
Date of Service May 11, 2024 Impression / Recommendations Impression 54-year-old female with history of schizoaffective disorder depressed type, TIA, osteoarthritis, hypertension, hyperlipidemia, alcohol abuse presents with a suicide attempt where she gradually took 50+ tablets of Tylenol and consumed alcohol in the context of hip pain status post surgery and familial conflict. Presentation concerning for schizoaffective disorder versus PTSD. Suicide attempt was impulsive the patient reported history of past attempts being in a similar fashion. Concern for depressed mood state. Patient would benefit for inpatient psychiatry admission for medication management and connection to outpatient counseling. Labs reviewed: TSH elevated; UA, CMP, and CBC within expected limits; Tylenol levels are trending downward. Some concern for hypothyroidism and we will draw free T4 level in addition to vitamin D and B12. Home medications were reviewed and adjustments made. Concern for sleep apnea and counseled patient on following up with PCP for sleep study. A: Ongoing depression largely driven by pain and having increase of hallucinations, but no voices today only music which she finds more tolerable but still disruptive. Ramon removed by orthopedics, appreciate their blanche lili, recommended to start her on baby aspirin BID for one month. May consider augmentation with an antidepressant based on how her mood symptoms respond to attempts to better control her pain. MNPR due to hallucinations Overall, I spent a total of 38 minutes on this case including meeting with the patient, reviewing the chart, nursing report, multidisciplinary team meeting, orders, and documentation. (1) Intentional acetaminophen overdose: (2) Schizoaffective disorder, depressive type: (3) Post traumatic stress disorder (PTSD): (4) Unspecified psychosis not due to a substance or known physiological condition: (5) Bilateral hip pain: (6) High serum thyroid stimulating hormone (TSH): (7) Thyroid nodule: (8) B12 deficiency: (9) Vitamin D deficiency disease: Plan 05/11/2024: Consider adjusting dosing of Wellbutrin, will continue with current dosing for now. Start baby aspirin BID for one month (stop on 06/11/2024). 05/10/2024:The patient was admitted to the [facility] ([facility] mental health unit) on q15 min checks (behavioral with suicide precautions) for safety. The patient will participate in group, recreational, and milieu therapies and will be offered additional individual and family sessions as clinically appropriate. -Draw labs: Free t4, Vit D, B12. Restart home psychiatric medications. Orthopedic consult for surgical ramon removal. Voltaren gel TID for hip pain. Colace 100mg BID started. Administer international trauma questionnaire. Inventory Assets Strengths: outpatient connection, open to counseling Needs: family support, medication management Suicide Risk Level Suicide Risk Level: Moderate (q15 min suicide checks) (suicide attempt prior to admission and ongoing depression but denies SI and feels safe in the hospital and feels able to ask for support) Risk Factors Assessment Male: No : Yes Do You Have Access To A Gun?: No Health Problems: Yes Mental Health Diagnoses: Yes Substance Use Disorders: Yes Previous Attempt: Yes Family History of Suicide: No Previous Psychiatric Hospitalization: Yes Hopelessness: No Protective Factors Assessment Sikh Beliefs: No : No Responsible for Young Children: No Employed: No Stable Relationships: No Supportive Family: No Good Rapport with Provider: Yes Absence of Any Risk Factors Above: No Interval History Identifying Information 54-year-old female with history of schizoaffective disorder depressed type, TIA, osteoarthritis, hypertension, hyperlipidemia, alcohol abuse presents with a suicide attempt where she gradually took 50+ tablets of Tylenol and consumed alcohol in the context of hip pain status post surgery and familial conflict. She was admitted on 05/09/24 17:33 on a 201 voluntary commitment. Chief Complaint "I'm ok". Review of Systems Sleep Information Total Hours of Sleep: 6.5 Meal Information Percent Meal Consumed - Breakfast: 100 Percent Meal Consumed - Lunch: 100 Percent Meal Consumed - Dinner: 50 Subjective Subjective Patient was seen & assessed and interval progress reviewed with treatment team nursing and social work. Attending groups but otherwise isolative to her room. Reported mood last night was frustrated. Today having hallucinations of music. Still having a lot of pain from her hip surgery, seen by orthopedics today to have ramon removed. Physical Exam Psychiatric Orientation: alert and oriented x 3 Apperance: appropriately dressed Eye Contact: + fair eye contact Motor Behavior: no abnormal motor movements Speech: normal rate/rhythm/volume of speech Affect: + constricted affect Mood: + depressed mood Thought Process: + concrete thought process Thought Content: reality based without delusions Suicidal Thoughts: denies suicidal thoughts (but s/p attempt) Homicidal Thoughts: denies homicidal thoughts Hallucinations: + auditory hallucinations; no visual hallucinations Cognition: recent memory grossly intact, remote memory grossly intact, attention grossly intact and language grossly intact Insight: + limited insight Judgment: + limited judgement Vital Signs (Past 24 Hours) Last Vital Signs Temp 36.5 C 05/11/24 06:35 Pulse 80 05/11/24 06:35 Resp 16 05/11/24 06:35 BP 115/76 05/11/24 06:35 Pulse Ox 94 05/09/24 18:05 O2 Del Method Room Air 05/09/24 18:05 Results & Data ([facility]) Laboratory Results Laboratory Results - last 24 hr 05/10/24 11:21 Vitamin B12 156 L 25-OH Vitamin D Total 20.4 L Free T4 0.74 Current Inpatient Medications Current Inpatient Medications: Current Inpatient Medications Acetaminophen (Acetaminophen 325 Mg Tab) 650 mg PO Q4H PRN PRN Reason: Headache or Minor Fever Stop: 06/08/24 13:45 Last Admin: 05/09/24 21:46 Dose: 650 mg Al Hydrox/Mg Hydrox/Simethicone (Aluminum/Magnesium Susp 30 Ml Udc) 30 ml PO Q4H PRN PRN Reason: GI Upset Stop: 06/08/24 13:45 Atorvastatin Calcium (Atorvastatin 40 Mg Tab) 80 mg PO QPM [facility] Stop: 06/09/24 20:59 Last Admin: 05/10/24 21:02 Dose: 80 mg Bismuth Subsalicylate (Bismuth Subsalicylate Liqd 236 Ml) 15 ml PO PRN PRN PRN Reason: Loose Stool Stop: 06/08/24 13:45 Bupropion HCl (Bupropion Sr 150 Mg Tabcr) [facility] Stop: 06/09/24 09:44 Last Admin: 05/10/24 10:24 Dose: 300 mg Clopidogrel Bisulfate (Clopidogrel Bisulfate 75 Mg Tab) [facility] Stop: 06/09/24 09:44 Last Admin: 05/10/24 10:24 Dose: 75 mg Cyanocobalamin (Cyanocobalamin (B-12) 500 Mcg Tablet) 500 mcg PO QAM [facility] Stop: 06/09/24 12:59 Last Admin: 05/10/24 13:35 Dose: 500 mcg Cyclobenzaprine HCl (Cyclobenzaprine Hcl 10 Mg Tab) 10 mg PO [facility] Stop: 06/09/24 21:59 Last Admin: 05/10/24 21:03 Dose: 10 mg Diclofenac Sodium (Diclofenac Sod 1% Gel 100 Gm Tube) 4 gm EXT TID [facility]; Protocol Stop: 06/09/24 13:59 Last Admin: 05/10/24 21:02 Dose: 4 gm Docusate Sodium (Docusate Sodium 100 Mg Cap) 100 mg PO BID [facility] Stop: 06/09/24 09:44 Last Admin: 05/10/24 21:03 Dose: 100 mg Gabapentin (Gabapentin 800 Mg Tab) 800 mg PO TID [facility] Stop: 06/08/24 20:59 Last Admin: 05/10/24 21:03 Dose: 800 mg Hydroxyzine HCl (Hydroxyzine Hcl 25 Mg Tab) 50 mg PO HSZ PRN PRN Reason: Insomnia Stop: 06/08/24 13:45 Hydroxyzine HCl (Hydroxyzine Hcl 25 Mg Tab) 25 mg PO Q4H PRN PRN Reason: Anxiety Stop: 06/08/24 13:45 Lamotrigine (Lamotrigine 100 Mg Tab) 100 mg PO [facility]; Protocol Stop: 06/08/24 21:59 Last Admin: 05/10/24 21:04 Dose: 100 mg Magnesium Hydroxide (Magnesium Hydroxide Susp 30 Ml Udc) 30 ml PO DAILY PRN PRN Reason: Constipation Stop: 06/08/24 13:45 Nitroglycerin (Nitroglycerin Sl 0.4 Mg/Tab Tab) 0.4 mg SL Q5M PRN PRN Reason: chest pain Ondansetron HCl (Ondansetron 4 Mg Od Tab) 4 mg PO Q8 PRN PRN Reason: nausea Stop: 06/09/24 09:40 Sennosides (Senna 8.6 Mg Tab) 8.6 mg PO DAILY PRN PRN Reason: constipation Stop: 06/09/24 09:44 Sertraline HCl (Sertraline Hcl 100 Mg Tablet) 200 mg PO [facility] Stop: 06/08/24 21:59 Last Admin: 05/10/24 21:04 Dose: 200 mg Sodium Chloride (Sodium Chloride 0.65% Na Soln 45 Ml ([place])) 1 - 2 sprays NA PRN PRN PRN Reason: Nasal Dryness/Congestion Stop: 06/08/24 13:45 Tramadol HCl (Tramadol Hcl 50 Mg Tablet) 50 mg PO Q6H PRN PRN Reason: moderate to severe pain Stop: 06/08/24 18:44 Last Admin: 05/10/24 21:02 Dose: 50 mg Trazodone HCl (Trazodone Hcl 100 Mg Tab) 200 mg PO HS [facility] Stop: 06/08/24 21:59 Last Admin: 05/10/24 21:04 Dose: 200 mg Vitamin D (Cholecalciferol 125 Mcg (5,000 Units) Tab) 125 mcg PO QAM [facility] Stop: 06/09/24 10:29 Last Admin: 05/10/24 11:29 Dose: 125 mcg Mental Health & Subst Abuse Tx Psychiatrist Name of Psychiatrist: Slava Carreon Psychiatrist's Therapist Name of Therapist: [facility] Therapist's Custom Furrier Name of Custom Furrier: Maggie @ [place] [facility] Post Discharge Appointments Primary Care Physician Name Of Family Doctor/PCP: Dr. [facility]
--- NOTE | 2024-05-11 14:10 | Orthopedic Progress Note ---
Date of Service May 11, 2024 Assessment & Plan (1) S/P total left hip arthroplasty: Plan: 54-year-old female with multiple medical problems and some psychiatric issues now admitted to the psych floor oh 2 weeks after a left total hip replacement. Hip is doing pretty well. She says it hurts but she looks quite comfortable and walks quite well. Hip incisions healed nicely. Plan: At this point working to remove her radames today and Steri-Stripped her wound. She can continue weight-bear as tolerated. Does [employer] hip precautions for the next month. It is fine for her to shower but should keep direct shower preferentially off the incision site for the next week. I need to follow her up in clinic in about a month. Any orthopedic questions can direct me at [phone]. She should be on a baby aspirin twice a day for the next month. Admission and Anticipated Discharge Date Admission Date: May 09, 2024 Subjective 54-year-old female now little over 2 weeks out from total hip replacement. She has been admitted to the hospital for psychiatric management with several issues. She missed her appointment yesterday as she is in the hospital. She is doing reasonably well. She does report quite a bit of pain right around the incision site. Not much in the way groin pain. There is no drainage from the hip incision. She is walking independently. Physical Exam Physical Exam: Physical examination was a pleasant middle-age female. She is actually walking quite well and independently with a minimal of any limp. Her hip incision is healed nicely. There is no signs of drainage swelling or redness. Leg lengths are equal. She has no particular pain with hip motion. She is neurologically intact. Results & Data Vital Signs (Past 12 Hours) Vital Signs Temp Pulse Resp BP 05/11/24 06:35 80 115/76 05/11/24 06:35 36.5 C 76 16 117/80
[2024-05-11] MEDS: ASPIRIN 81 MG ECTAB PO SCH (20:56)
[2024-05-12] MEDS: MAGNESIUM HYDROXIDE SUSP 30 ML UDC PO PRN (08:42)
--- NOTE | 2024-05-12 09:22 | Psychiatric Progress Note ---
Date of Service May 12, 2024 Impression / Recommendations Impression 54-year-old female with history of schizoaffective disorder depressed type, TIA, osteoarthritis, hypertension, hyperlipidemia, alcohol abuse presents with a suicide attempt where she gradually took 50+ tablets of Tylenol and consumed alcohol in the context of hip pain status post surgery and familial conflict. Presentation concerning for schizoaffective disorder versus PTSD. Suicide attempt was impulsive the patient reported history of past attempts being in a similar fashion. Concern for depressed mood state. Patient would benefit for inpatient psychiatry admission for medication management and connection to outpatient counseling. Labs reviewed: TSH elevated; UA, CMP, and CBC within expected limits; Tylenol levels are trending downward. Some concern for hypothyroidism and we will draw free T4 level in addition to vitamin D and B12. Home medications were reviewed and adjustments made. Concern for sleep apnea and counseled patient on following up with PCP for sleep study. A: Ongoing depression largely driven by pain and having increase of hallucinations, with worsened voices today and having SI due to this. Last EKG showed elevated QTc so will get repeat EKG to assess this. If QTc has remained stable or is shortening then will add po Invega to further target auditory hallucinations which is what she prefers to making adjustments to her antidepressants as mood symptoms seem to be driven by worsened psychosis symptoms. MNPR due to hallucinations Overall, I spent a total of 35 minutes on this case including meeting with the patient, reviewing the chart, nursing report, multidisciplinary team meeting, orders, and documentation. (1) Intentional acetaminophen overdose: (2) Schizoaffective disorder, depressive type: (3) Post traumatic stress disorder (PTSD): (4) Unspecified psychosis not due to a substance or known physiological condition: (5) Bilateral hip pain: (6) High serum thyroid stimulating hormone (TSH): (7) Thyroid nodule: (8) B12 deficiency: (9) Vitamin D deficiency disease: Plan 05/12/2024: EKG to assess QTc. Consider addition of Invega po. Fasting lipid panel and glucose in the AM. 05/11/2024: Consider adjusting dosing of Wellbutrin, will continue with current dosing for now. Start baby aspirin BID for one month (stop on 06/11/2024). 05/10/2024:The patient was admitted to the [facility] ([facility] health [facility]) on q15 min checks (behavioral with suicide precautions) for safety. The patient will participate in group, recreational, and milieu therapies and will be offered additional individual and family sessions as clinically appropriate. -Draw labs: Free t4, Vit D, B12. Restart home psychiatric medications. Orthopedic consult for surgical radames removal. Voltaren gel TID for hip pain. Colace 100mg BID started. Administer international trauma questionnaire. Inventory Assets Strengths: outpatient connection, open to counseling Needs: family support, medication management Suicide Risk Level Suicide Risk Level: Moderate (q15 min suicide checks) (suicide attempt prior to admission and ongoing depression with SI but feels safe in the hospital and feels able to ask for support) Risk Factors Assessment Male: No : Yes Do You Have Access To A Gun?: No Health Problems: Yes Mental Health Diagnoses: Yes Substance Use Disorders: Yes Previous Attempt: Yes Family History of Suicide: No Previous Psychiatric Hospitalization: Yes Hopelessness: No Protective Factors Assessment Caodaism Beliefs: No : No Responsible for Young Children: No Employed: No Stable Relationships: No Supportive Family: No Good Rapport with Provider: Yes Absence of Any Risk Factors Above: No Interval History Identifying Information 54-year-old female with history of schizoaffective disorder depressed type, TIA, osteoarthritis, hypertension, hyperlipidemia, alcohol abuse presents with a suicide attempt where she gradually took 50+ tablets of Tylenol and consumed alcohol in the context of hip pain status post surgery and familial conflict. She was admitted on 05/09/24 17:33 on a 201 voluntary commitment. Chief Complaint "The voices are mean today". Review of Systems Sleep Information Total Hours of Sleep: 7.75 Meal Information Percent Meal Consumed - Breakfast: 100 Percent Meal Consumed - Lunch: 50 Percent Meal Consumed - Dinner: 50 Subjective Subjective Patient was seen & assessed and interval progress reviewed with treatment team nursing and social work. Depressed, rated mood last night as "terrible". Did sleep overnight. Goes to groups but then immediately after isolates in her room. Reports worsened depression today "it sucks". Having AH reports they are "mean", discussing "bad project development leader" and a DA. Still having some hip pain but slightly more controlled. Feels her depression is due to the worsened AH. Open to trying headphones and music to distract. Physical Exam Psychiatric Orientation: alert and oriented x 3 Apperance: appropriately dressed Eye Contact: + fair eye contact Motor Behavior: no abnormal motor movements Speech: normal rate/rhythm/volume of speech Affect: + constricted affect Mood: + depressed mood Thought Process: + concrete thought process Thought Content: reality based without delusions Suicidal Thoughts: denies suicidal plan (but s/p attempt); + reports suicidal thoughts Homicidal Thoughts: denies homicidal thoughts Hallucinations: + auditory hallucinations; no visual hallucinations Cognition: recent memory grossly intact, remote memory grossly intact, attention grossly intact and language grossly intact Insight: + limited insight Judgment: + limited judgement Vital Signs (Past 24 Hours) Last Vital Signs Temp 36.6 C 05/12/24 06:50 Pulse 74 05/12/24 06:50 Resp 16 05/12/24 06:50 BP 129/81 05/12/24 06:51 Pulse Ox 95 05/12/24 06:50 O2 Del Method Room Air 05/12/24 06:50 Results & Data ([facility]) Current Inpatient Medications Current Inpatient Medications: Current Inpatient Medications Al Hydrox/Mg Hydrox/Simethicone (Aluminum/Magnesium Susp 30 Ml Udc) 30 ml PO Q4H PRN PRN Reason: GI Upset Stop: 06/08/24 13:45 Aspirin (Aspirin 81 Mg Ectab) 81 mg PO BID [facility] Stop: 06/10/24 20:59 Last Admin: 05/12/24 08:45 Dose: 81 mg Atorvastatin Calcium (Atorvastatin 40 Mg Tab) 80 mg PO QPM [facility] Stop: 06/09/24 20:59 Last Admin: 05/11/24 20:56 Dose: 80 mg Bismuth Subsalicylate (Bismuth Subsalicylate Liqd 236 Ml) 15 ml PO PRN PRN PRN Reason: Loose Stool Stop: 06/08/24 13:45 Bupropion HCl (Bupropion Sr 150 Mg Tabcr) [facility] Stop: 06/09/24 09:44 Last Admin: 05/12/24 08:46 Dose: 300 mg Clopidogrel Bisulfate (Clopidogrel Bisulfate 75 Mg Tab) 75 mg PO QAM [facility] Stop: 06/09/24 09:44 Last Admin: 05/12/24 08:46 Dose: 75 mg Cyanocobalamin (Cyanocobalamin (B-12) 500 Mcg Tablet) 500 mcg PO QAM [facility] Stop: 06/09/24 12:59 Last Admin: 05/12/24 08:44 Dose: 500 mcg Cyclobenzaprine HCl (Cyclobenzaprine Hcl 10 Mg Tab) 10 mg PO [facility] Stop: 06/09/24 21:59 Last Admin: 05/11/24 20:58 Dose: 10 mg Diclofenac Sodium (Diclofenac Sod 1% Gel 100 Gm Tube) 4 gm EXT TID [facility]; Pr otocol Stop: 06/09/24 13:59 Last Admin: 05/12/24 08:43 Dose: 4 gm Docusate Sodium (Docusate Sodium 100 Mg Cap) 100 mg PO BID [facility] Stop: 06/09/24 09:44 Last Admin: 05/12/24 08:46 Dose: 100 mg Gabapentin (Gabapentin 800 Mg Tab) 800 mg PO TID [facility] Stop: 06/08/24 20:59 Last Admin: 05/12/24 08:44 Dose: 800 mg Hydroxyzine HCl (Hydroxyzine Hcl 25 Mg Tab) 50 mg PO HSZ PRN PRN Reason: Insomnia Stop: 06/08/24 13:45 Hydroxyzine HCl (Hydroxyzine Hcl 25 Mg Tab) 25 mg PO Q4H PRN PRN Reason: Anxiety Stop: 06/08/24 13:45 Lamotrigine (Lamotrigine 100 Mg Tab) 100 mg PO [facility]; Protocol Stop: 06/08/24 21:59 Last Admin: 05/11/24 20:59 Dose: 100 mg Magnesium Hydroxide (Magnesium Hydroxide Susp 30 Ml Udc) 30 ml PO DAILY PRN PRN Reason: Constipation Stop: 06/08/24 13:45 Last Admin: 05/12/24 08:42 Dose: 30 ml Nitroglycerin (Nitroglycerin Sl 0.4 Mg/Tab Tab) 0.4 mg SL Q5M PRN PRN Reason: chest pain Ondansetron HCl (Ondansetron 4 Mg Od Tab) 4 mg PO Q8 PRN PRN Reason: nausea Stop: 06/09/24 09:40 Sennosides (Senna 8.6 Mg Tab) 8.6 mg PO DAILY PRN PRN Reason: constipation Stop: 06/09/24 09:44 Sertraline HCl (Sertraline Hcl 100 Mg Tablet) 200 mg PO [facility] Stop: 06/08/24 21:59 Last Admin: 05/11/24 20:59 Dose: 200 mg Sodium Chloride (Sodium Chloride 0.65% Na Soln 45 Ml ([place])) 1 - 2 sprays NA PRN PRN PRN Reason: Nasal Dryness/Congestion Stop: 06/08/24 13:45 Tramadol HCl (Tramadol Hcl 50 Mg Tablet) 50 mg PO Q6H PRN PRN Reason: moderate to severe pain Stop: 06/08/24 18:44 Last Admin: 05/12/24 08:53 Dose: 50 mg Trazodone HCl (Trazodone Hcl 100 Mg Tab) 200 mg PO HS [facility] Stop: 06/08/24 21:59 Last Admin: 05/11/24 20:58 Dose: 200 mg Vitamin D (Cholecalciferol 125 Mcg (5,000 Units) Tab) 125 mcg PO QAM [facility] Stop: 06/09/24 10:29 Last Admin: 05/12/24 08:44 Dose: 125 mcg Mental Health & Subst Abuse Tx Psychiatrist Name of Psychiatrist: Slava Carreon Psychiatrist's Date Of Appointment With Psychiatric Provider: 05/23/2024 Time of Appointment with Psychiatrist: 1500 Therapist Name of Therapist: [facility] ([place]) Therapist's Date of Therapist Appointment: 05/17/2024 Time of Therapist Appointment: 1300 Therapy Appointment Comment: Patient will need to complete all forms that are emailed to her before appt Civil Estimator Name of Civil Estimator: Maggie @ [facility] Post Discharge Appointments Primary Care Physician Name Of Family Doctor/PCP: Dr. [facility]
[2024-05-12] MEDS: NICOTINE 7 MG/24 HR TDSY TD SCH (11:04)
[2024-05-13 06:18] VITALS: O2SAT 97
--- NOTE | 2024-05-13 06:54 | Electrocardiogram Report ---
Test Reason : Blood Pressure : / mmHG Vent. Rate : 082 BPM Atrial Rate : 082 BPM P-R Int : 154 ms QRS Dur : 102 ms QT Int : 418 ms P-R-T Axes : 044 034 052 degrees QTc Int : 488 ms Sinus rhythm with occasional Premature ventricular complexes Possible Inferior infarct (cited on or before 07-MAY-2024) Abnormal ECG When compared with ECG of 07-MAY-2024 21:59, Premature ventricular complexes are now Present Confirmed by Nir Daily ([id number]) on 05/13/2024 6:54:24 AM Referred By: Daren Senior Confirmed By:Logan Daily
[2024-05-13 08:09] LABS: Chol HDL Ratio 4.4 (0-5)
--- NOTE | 2024-05-13 08:43 | Psychiatric Progress Note ---
Date of Service May 13, 2024 Impression / Recommendations Impression 54-year-old female with history of schizoaffective disorder depressed type, TIA, osteoarthritis, hypertension, hyperlipidemia, alcohol abuse presents with a suicide attempt where she gradually took 50+ tablets of Tylenol and consumed alcohol in the context of hip pain status post surgery and familial conflict. Presentation concerning for schizoaffective disorder versus PTSD. Suicide attempt was impulsive the patient reported history of past attempts being in a similar fashion. Concern for depressed mood state. Patient would benefit for inpatient psychiatry admission for medication management and connection to outpatient counseling. Labs reviewed: TSH elevated; UA, CMP, and CBC within expected limits; Tylenol levels are trending downward. Some concern for hypothyroidism and we will draw free T4 level in addition to vitamin D and B12. Home medications were reviewed and adjustments made. Concern for sleep apnea and counseled patient on following up with PCP for sleep study. A: Ongoing depression and psychosis including AH and VH. Reviewed prolonged QTc and on admission had low magnesium. She is agreeable to magnesium supplementation as this can help correct prolonged QTc and be cardioprotective in cases of low magnesium. She wants to continue with po Invega, understands risks of potentially further prolonging QTc but currently <500ms so felt to be reasonable given benefits outweigh risks at this point due to her psychiatric distress from her symptoms. Review of her other medications doesn't show any medications that seem to be significantly contributing to QTc which could be reduced or stopped. Will recheck QTc in a few days after magnesium supplementation and with addition of po Invega. Fasting labwork reviewed and notable for elevated glucose and triglycerides but felt to be safe to proceed with po Invega. MNPR due to hallucinations Overall, I spent a total of 38 minutes on this case including meeting with the patient, reviewing the chart, nursing report, multidisciplinary team meeting, orders, and documentation. (1) Intentional acetaminophen overdose: (2) Schizoaffective disorder, depressive type: (3) Post traumatic stress disorder (PTSD): (4) Unspecified psychosis not due to a substance or known physiological condition: (5) Bilateral hip pain: (6) High serum thyroid stimulating hormone (TSH): (7) Thyroid nodule: (8) B12 deficiency: (9) Vitamin D deficiency disease: Plan 05/13/2024: -Invega 1.5mg po BID -Colace-senna for constipation -Magnesium oxide 400mg BID 05/12/2024: EKG to assess QTc. Consider addition of Invega po. Fasting lipid panel and glucose in the AM. 05/11/2024: Consider adjusting dosing of Wellbutrin, will continue with current dosing for now. Start baby aspirin BID for one month (stop on 06/11/2024). 05/10/2024:The patient was admitted to the [facility] ([facility] health unit) on q15 min checks (behavioral with suicide precautions) for safety. The patient will participate in group, recreational, and milieu therapies and will be offered additional individual and family sessions as clinically appropriate. -Draw labs: Free t4, Vit D, B12. Restart home psychiatric medications. Orthopedic consult for surgical radames removal. Voltaren gel TID for hip pain. Colace 100mg BID started. Administer international trauma questionnaire. Inventory Assets Strengths: outpatient connection, open to counseling Needs: family support, medication management Suicide Risk Level Suicide Risk Level: Moderate (q15 min suicide checks) (suicide attempt prior to admission and ongoing depression with SI but feels safe in the hospital and feels able to ask for support) Risk Factors Assessment Male: No : Yes Do You Have Access To A Gun?: No Health Problems: Yes Mental Health Diagnoses: Yes Substance Use Disorders: Yes Previous Attempt: Yes Family History of Suicide: No Previous Psychiatric Hospitalization: Yes Hopelessness: No Protective Factors Assessment Latter-Day Beliefs: No : No Responsible for Young Children: No Employed: No Stable Relationships: No Supportive Family: No Good Rapport with Provider: Yes Absence of Any Risk Factors Above: No Interval History Identifying Information 54-year-old female with history of schizoaffective disorder depressed type, TIA, osteoarthritis, hypertension, hyperlipidemia, alcohol abuse presents with a suicide attempt where she gradually took 50+ tablets of Tylenol and consumed alcohol in the context of hip pain status post surgery and familial conflict. She was admitted on 05/09/24 17:33 on a 201 voluntary commitment. Chief Complaint "I'm seeing people". Review of Systems Sleep Information Total Hours of Sleep: 7 Meal Information Percent Meal Consumed - Breakfast: 100 Percent Meal Consumed - Lunch: 50 Percent Meal Consumed - Dinner: 50 Subjective Subjective Patient was seen & assessed and interval progress reviewed with treatment team nursing and social work. Hearing voices last night, upsetting to her, telling her she needs to "testify". Today continues to have low mood which she feels is driven by ongoing voices and "seeing people". She can reality test these VH, recognizes they are not real but still distressing. Ongoing SI. Feels AM dose of Invega po helped a little bit with lessening the voices "they're alright". Having constipation, would like medication to help with this. Physical Exam Psychiatric Orientation: alert and oriented x 3 Apperance: appropriately dressed Eye Contact: + fair eye contact Motor Behavior: no abnormal motor movements Speech: normal rate/rhythm/volume of speech Affect: + constricted affect Mood: + depressed mood Thought Process: + concrete thought process Thought Content: reality based without delusions Suicidal Thoughts: denies suicidal plan (but s/p attempt); + reports suicidal thoughts Homicidal Thoughts: denies homicidal thoughts Hallucinations: + auditory hallucinations and + visual hallucinations Cognition: recent memory grossly intact, remote memory grossly intact, attention grossly intact and language grossly intact Insight: + limited insight Judgment: + limited judgement Vital Signs (Past 24 Hours) Last Vital Signs Temp 36.3 C L 05/13/24 06:00 Pulse 74 05/13/24 06:17 Resp 20 05/13/24 06:00 BP 132/83 05/13/24 06:17 Pulse Ox 97 05/13/24 06:00 O2 Del Method Room Air 05/13/24 06:00 Results & Data ([facility]) Laboratory Results Laboratory Results - last 24 hr 05/13/24 07:20 Fasting Glucose 157 H Triglycerides 263 H Cholesterol 137 LDL Cholesterol, Calc 53 VLDL Cholesterol, Calc 53 H HDL Cholesterol 31 Cholesterol/HDL Ratio 4.4 Current Inpatient Medications Current Inpatient Medications: Current Inpatient Medications Al Hydrox/Mg Hydrox/Simethicone (Aluminum/Magnesium Susp 30 Ml Udc) 30 ml PO Q4H PRN PRN Reason: GI Upset Stop: 06/08/24 13:45 Aspirin (Aspirin 81 Mg Ectab) 81 mg PO BID [facility] Stop: 06/10/24 20:59 Last Admin: 05/12/24 21:01 Dose: 81 mg Atorvastatin Calcium (Atorvastatin 40 Mg Tab) 80 mg PO QPM [facility] Stop: 06/09/24 20:59 Last Admin: 05/12/24 21:01 Dose: 80 mg Bismuth Subsalicylate (Bismuth Subsalicylate Liqd 236 Ml) 15 ml PO PRN PRN PRN Reason: Loose Stool Stop: 06/08/24 13:45 Bupropion HCl (Bupropion Sr 150 Mg Tabcr) [address] [facility] Stop: 06/09/24 09:44 Last Admin: 05/12/24 08:46 Dose: 300 mg Clopidogrel Bisulfate (Clopidogrel Bisulfate 75 Mg Tab) [address] [facility] Stop: 06/09/24 09:44 Last Admin: 05/12/24 08:46 Dose: 75 mg Cyanocobalamin (Cyanocobalamin (B-12) 500 Mcg Tablet) [address] [facility] Stop: 06/09/24 12:59 Last Admin: 05/12/24 08:44 Dose: 500 mcg Cyclobenzaprine HCl (Cyclobenzaprine Hcl 10 Mg Tab) 10 mg PO [facility] Stop: 06/09/24 21:59 Last Admin: 05/12/24 21:02 Dose: 10 mg Diclofenac Sodium (Diclofenac Sod 1% Gel 100 Gm Tube) 4 gm EXT TID [facility]; Protocol Stop: 06/09/24 13:59 Last Admin: 05/12/24 21:01 Dose: 4 gm Docusate Sodium (Docusate Sodium 100 Mg Cap) 100 mg PO BID [facility] Stop: 06/09/24 09:44 Last Admin: 05/12/24 21:02 Dose: 100 mg Gabapentin (Gabapentin 800 Mg Tab) 800 mg PO TID [facility] Stop: 06/08/24 20:59 Last Admin: 05/12/24 21:02 Dose: 800 mg Hydroxyzine HCl (Hydroxyzine Hcl 25 Mg Tab) 50 mg PO HSZ PRN PRN Reason: Insomnia Stop: 06/08/24 13:45 Hydroxyzine HCl (Hydroxyzine Hcl 25 Mg Tab) 25 mg PO Q4H PRN PRN Reason: Anxiety Stop: 06/08/24 13:45 Lamotrigine (Lamotrigine 100 Mg Tab) 100 mg PO [facility]; Protocol Stop: 06/08/24 21:59 Last Admin: 05/12/24 21:02 Dose: 100 mg Magnesium Hydroxide (Magnesium Hydroxide Susp 30 Ml Udc) 30 ml PO DAILY PRN PRN Reason: Constipation Stop: 06/08/24 13:45 Last Admin: 05/12/24 08:42 Dose: 30 ml Miscellaneous (Remove Nicoderm Patch) 1 each N/A DAILY@0859 [facility] Stop: 06/12/24 08:58 Nicotine (Nicotine 7 Mg/24 Hr Tdsy) 1 patch TD QAM [facility] Stop: 06/11/24 10:29 Last Admin: 05/12/24 11:04 Dose: 1 patch Nitroglycerin (Nitroglycerin Sl 0.4 Mg/Tab Tab) 0.4 mg SL Q5M PRN PRN Reason: chest pain Ondansetron HCl (Ondansetron 4 Mg Od Tab) 4 mg PO Q8 PRN PRN Reason: nausea Stop: 06/09/24 09:40 Paliperidone (Paliperidone 1.5 Mg Tabcr) 1.5 mg PO BID [facility] Stop: 06/11/24 14:29 Sennosides (Senna 8.6 Mg Tab) 8.6 mg PO DAILY PRN PRN Reason: constipation Stop: 06/09/24 09:44 Sertraline HCl (Sertraline Hcl 100 Mg Tablet) 200 mg PO HS [facility] Stop: 06/08/24 21:59 Last Admin: 05/12/24 21:02 Dose: 200 mg Sodium Chloride (Sodium Chloride 0.65% Na Soln 45 Ml ([place])) 1 - 2 sprays NA PRN PRN PRN Reason: Nasal Dryness/Congestion Stop: 06/08/24 13:45 Tramadol HCl (Tramadol Hcl 50 Mg Tablet) 50 mg PO Q6H PRN PRN Reason: moderate to severe pain Stop: 06/08/24 18:44 Last Admin: 05/12/24 21:02 Dose: 50 mg Trazodone HCl (Trazodone Hcl 100 Mg Tab) 200 mg PO [facility] Stop: 06/08/24 21:59 Last Admin: 05/12/24 21:02 Dose: 200 mg Vitamin D (Cholecalciferol 125 Mcg (5,000 Units) Tab) 125 mcg PO QAM [facility] Stop: 06/09/24 10:29 Last Admin: 05/12/24 08:44 Dose: 125 mcg Mental Health & Subst Abuse Tx Psychiatrist Name of Psychiatrist: Slava Carreon Psychiatrist's Date Of Appointment With Psychiatric Provider: 05/23/2024 Time of Appointment with Psychiatrist: 1500 Therapist Name of Therapist: [facility] ([facility]) Therapist's Date of Therapist Appointment: 05/17/2024 Time of Therapist Appointment: 1300 Therapy Appointment Comment: Patient will need to complete all forms that are emailed to her before appt Drawer In [place] Name of Drawer In [place]: Maggie @ [facility] Post Discharge Appointments Primary Care Physician Name Of Family Doctor/PCP: Dr. [facility]
[2024-05-13] MEDS: PALIPERIDONE 1.5 MG TABCR PO SCH (08:59)
[2024-05-13] MEDS: MAGNESIUM OXIDE 400 MG TAB PO SCH (13:44)
[2024-05-13] MEDS: DOCUSATE SODIUM/SENNA 50/8.6MG TAB PO SCH (20:49)
--- NOTE | 2024-05-14 09:12 | Psychiatric Progress Note ---
Date of Service May 14, 2024 Impression / Recommendations Impression 54-year-old female with history of schizoaffective disorder depressed type, TIA, osteoarthritis, hypertension, hyperlipidemia, alcohol abuse presents with a suicide attempt where she gradually took 50+ tablets of Tylenol and consumed alcohol in the context of hip pain status post surgery and familial conflict. Presentation concerning for schizoaffective disorder versus PTSD. Suicide attempt was impulsive the patient reported history of past attempts being in a similar fashion. Concern for depressed mood state. Patient would benefit for inpatient psychiatry admission for medication management and connection to outpatient counseling. Labs reviewed: TSH elevated; UA, CMP, and CBC within expected limits; Tylenol levels are trending downward. Some concern for hypothyroidism and we will draw free T4 level in addition to vitamin D and B12. Home medications were reviewed and adjustments made. Concern for sleep apnea and counseled patient on following up with PCP for sleep study. A: Some lessening of SI today but with increased distress from auditory hallucinations today. She would like to try increasing the Invega dose tonight. Still with constipation, will add Miralax. Tramadol helping with her pain. MNPR due to hallucinations Overall, I spent a total of 32 minutes on this case including meeting with the patient, reviewing the chart, nursing report, multidisciplinary team meeting, orders, and documentation. 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 Consider addition of Invega po. Fasting lipid panel and glucose in the AM. 05/11/2024: Consider adjusting dosing of Wellbutrin, will continue with current dosing for now. Start baby aspirin BID for one month (stop on 06/11/2024). 05/10/2024:The patient was admitted to the [facility] (locked inpatient mental health unit) on q15 min checks (behavioral with suicide precautions) for safety. The patient will participate in group, recreational, and milieu therapies and will be offered additional individual and family sessions as clinically appropriate. -Draw labs: Free t4, Vit D, B12. Restart home psychiatric medications. Orthopedic consult for surgical radames removal. Voltaren gel TID for hip pain. Colace 100mg BID started. Administer international trauma questionnaire. Inventory Assets Strengths: outpatient connection, open to counseling Needs: family support, medication management Suicide Risk Level Suicide Risk Level: Moderate (q15 min suicide checks) (suicide attempt prior to admission and ongoing depression with SI but feels safe in the hospital and feels able to ask for support) Risk Factors Assessment Male: No : Yes Do You Have Access To A Gun?: No Health Problems: Yes Mental Health Diagnoses: Yes Substance Use Disorders: Yes Previous Attempt: Yes Family History of Suicide: No Previous Psychiatric Hospitalization: Yes Hopelessness: No Protective Factors Assessment Judaism Beliefs: No : No Responsible for Young Children: No Employed: No Stable Relationships: No Supportive Family: No Good Rapport with Provider: Yes Absence of Any Risk Factors Above: No Interval History Identifying Information 54-year-old female with history of schizoaffective disorder depressed type, TIA, osteoarthritis, hypertension, hyperlipidemia, alcohol abuse presents with a suicide attempt where she gradually took 50+ tablets of Tylenol and consumed alcohol in the context of hip pain status post surgery and familial conflict. She was admitted on 05/09/24 17:33 on a 201 voluntary commitment. Chief Complaint "The voices are really demanding". Review of Systems Sleep Information Total Hours of Sleep: 7 Meal Information Percent Meal Consumed - Breakfast: 50 Percent Meal Consumed - Lunch: 50 Percent Meal Consumed - Dinner: 75 Subjective Subjective Patient was seen & assessed and interval progress reviewed with treatment team nursing and social work. Slept well overnight. Reports mood today is "ok", but with distress from the voices which are loud and demanding today saying things like "f*ck you Matilda" "because I won't be testifying". SI less today which she identifies as sign "things are getting a little better I guess". Hasn't noticed any side effects nor benefits from addition of Invega. Physical Exam Psychiatric Orientation: alert and oriented x 3 Apperance: appropriately dressed Eye Contact: + fair eye contact Motor Behavior: no abnormal motor movements Speech: normal rate/rhythm/volume of speech Affect: + constricted affect Mood: + depressed mood Thought Process: + concrete thought process Thought Content: + delusions Suicidal Thoughts: denies suicidal plan (but s/p attempt); + reports suicidal thoughts (lessening slightly today) Homicidal Thoughts: denies homicidal thoughts Hallucinations: + auditory hallucinations and + visual hallucinations Cognition: recent memory grossly intact, remote memory grossly intact, attention grossly intact and language grossly intact Insight: + limited insight Judgment: + limited judgement Vital Signs (Past 24 Hours) Last Vital Signs Temp 36.5 C 05/14/24 06:40 Pulse 86 05/14/24 06:41 Resp 18 05/14/24 06:40 BP 102/71 05/14/24 06:41 Pulse Ox 97 05/13/24 06:00 O2 Del Method Room Air 05/13/24 06:00 Results & Data ([facility]) Current Inpatient Medications Current Inpatient Medications: Current Inpatient Medications Al Hydrox/Mg Hydrox/Simethicone (Aluminum/Magnesium Susp 30 Ml Udc) 30 ml PO Q4H PRN PRN Reason: GI Upset Stop: 06/08/24 13:45 Aspirin (Aspirin 81 Mg Ectab) 81 mg PO BID [facility] Stop: 06/10/24 20:59 Last Admin: 05/14/24 08:36 Dose: 81 mg Atorvastatin Calcium (Atorvastatin 40 Mg Tab) 80 mg PO QPM [facility] Stop: 06/09/24 20:59 Last Admin: 05/13/24 20:49 Dose: 80 mg Bismuth Subsalicylate (Bismuth Subsalicylate Liqd 236 Ml) 15 ml PO PRN PRN PRN Reason: Loose Stool Stop: 06/08/24 13:45 Bupropion HCl (Bupropion Sr 150 Mg Tabcr) 300 mg PO QAM [facility] Stop: 06/09/24 09:44 Last Admin: 05/14/24 08:34 Dose: 300 mg Clopidogrel Bisulfate (Clopidogrel Bisulfate 75 Mg Tab) 75 mg PO QAM [facility] Stop: 06/09/24 09:44 Last Admin: 05/14/24 08:35 Dose: 75 mg Cyanocobalamin (Cyanocobalamin (B-12) 500 Mcg Tablet) 500 mcg PO QAM [facility] Stop: 06/09/24 12:59 Last Admin: 05/14/24 08:35 Dose: 500 mcg Cyclobenzaprine HCl (Cyclobenzaprine Hcl 10 Mg Tab) 10 mg PO [facility] Stop: 06/09/24 21:59 Last Admin: 05/13/24 20:49 Dose: 10 mg Diclofenac Sodium (Diclofenac Sod 1% Gel 100 Gm Tube) 4 gm EXT TID [facility]; Protocol Stop: 06/09/24 13:59 Last Admin: 05/14/24 08:37 Dose: 4 gm Gabapentin (Gabapentin 800 Mg Tab) 800 mg PO TID [facility] Stop: 06/08/24 20:59 Last Admin: 05/14/24 08:37 Dose: 800 mg Hydroxyzine HCl (Hydroxyzine Hcl 25 Mg Tab) 50 mg PO HSZ PRN PRN Reason: Insomnia Stop: 06/08/24 13:45 Hydroxyzine HCl (Hydroxyzine Hcl 25 Mg Tab) 25 mg PO Q4H PRN PRN Reason: Anxiety Stop: 06/08/24 13:45 Lamotrigine (Lamotrigine 100 Mg Tab) 100 mg PO [facility]; Protocol Stop: 06/08/24 21:59 Last Admin: 05/13/24 20:49 Dose: 100 mg Magnesium Hydroxide (Magnesium Hydroxide Susp 30 Ml Udc) 30 ml PO DAILY PRN PRN Reason: Constipation Stop: 06/08/24 13:45 Last Admin: 05/14/24 08:33 Dose: 30 ml Magnesium Oxide (Magnesium Oxide 400 Mg Tab) 400 mg PO BID [facility] Stop: 06/12/24 12:29 Last Admin: 05/14/24 08:36 Dose: 400 mg Miscellaneous (Remove Nicoderm Patch) 1 each N/A DAILY@0859 [facility] Stop: 06/12/24 08:58 Last Admin: 05/14/24 08:43 Dose: 1 each Nicotine (Nicotine 7 Mg/24 Hr Tdsy) 1 patch TD QAM [facility] Stop: 06/11/24 10:29 Last Admin: 05/14/24 08:33 Dose: 1 patch Nitroglycerin (Nitroglycerin Sl 0.4 Mg/Tab Tab) 0.4 mg SL Q5M PRN PRN Reason: chest pain Ondansetron HCl (Ondansetron 4 Mg Od Tab) 4 mg PO Q8 PRN PRN Reason: nausea Stop: 06/09/24 09:40 Paliperidone (Paliperidone 1.5 Mg Tabcr) 1.5 mg PO BID [facility] Stop: 06/11/24 14:29 Last Admin: 05/14/24 08:34 Dose: 1.5 mg Senna/Docusate Sodium (Docusate Sodium/Senna 50/8.6mg Tab) 1 tab PO BID [facility] Stop: 06/12/24 20:59 Last Admin: 05/14/24 08:37 Dose: 1 tab Sertraline HCl (Sertraline Hcl 100 Mg Tablet) 200 mg PO HS [facility] Stop: 06/08/24 21:59 Last Admin: 05/13/24 20:50 Dose: 200 mg Sodium Chloride (Sodium Chloride 0.65% Na Soln 45 Ml ([place])) 1 - 2 sprays NA P RN PRN PRN Reason: Nasal Dryness/Congestion Stop: 06/08/24 13:45 Tramadol HCl (Tramadol Hcl 50 Mg Tablet) 50 mg PO Q6H PRN PRN Reason: moderate to severe pain Stop: 06/08/24 18:44 Last Admin: 05/14/24 08:38 Dose: 50 mg Trazodone HCl (Trazodone Hcl 100 Mg Tab) 200 mg PO HS [facility] Stop: 06/08/24 21:59 Last Admin: 05/13/24 20:49 Dose: 200 mg Vitamin D (Cholecalciferol 125 Mcg (5,000 Units) Tab) 125 mcg PO QAM [facility] Stop: 06/09/24 10:29 Last Admin: 05/14/24 08:37 Dose: 125 mcg Mental Health & Subst Abuse Tx Psychiatrist Name of Psychiatrist: Slava Carreon Psychiatrist's Date Of Appointment With Psychiatric Provider: 05/23/2024 Time of Appointment with Psychiatrist: 1500 Therapist Name of Therapist: [facility] ([facility]) Therapist's Date of Therapist Appointment: 05/17/2024 Time of Therapist Appointment: 1300 Therapy Appointment Comment: Patient will need to complete all forms that are emailed to her before appt Medical Case Manager Name of Medical Case Manager: Maggie @ [facility] Post Discharge Appointments Primary Care Physician Name Of Family Doctor/PCP: Dr. Hough [facility]
[2024-05-14] MEDS: POLYETHYLENE (MIRALAX) 17 GM PACK PO SCH (12:47)
[2024-05-14] MEDS: PALIPERIDONE 3 MG TABCR PO SCH (20:59)
--- NOTE | 2024-05-15 08:55 | Psychiatric Progress Note ---
Date of Service May 15, 2024 Impression / Recommendations Impression 54-year-old female with history of schizoaffective disorder depressed type, TIA, osteoarthritis, hypertension, hyperlipidemia, alcohol abuse presents with a suicide attempt where she gradually took 50+ tablets of Tylenol and consumed alcohol in the context of hip pain status post surgery and familial conflict. Presentation concerning for schizoaffective disorder versus PTSD. Suicide attempt was impulsive the patient reported history of past attempts being in a similar fashion. Concern for depressed mood state. Patient would benefit for inpatient psychiatry admission for medication management and connection to outpatient counseling. Labs reviewed: TSH elevated; UA, CMP, and CBC within expected limits; Tylenol levels are trending downward. Some concern for hypothyroidism and we will draw free T4 level in addition to vitamin D and B12. Home medications were reviewed and adjustments made. Concern for sleep apnea and counseled patient on following up with PCP for sleep study. A: Mood a little better today due to no AH today, which she reports is a fairly change as the voices have been present for the last 5 years. Still experiencing some distress from the visual hallucinations. Will recheck QTc tomorrow AM. If lessening or stable then could consider further titration of Invega po. MNPR due to hallucinations Overall, I spent a total of 25 minutes on this case including meeting with the p katerin, reviewing the chart, nursing report, multidisciplinary team meeting, orders, and documentation. (1) Intentional acetaminophen overdose: (2) Schizoaffective disorder, depressive type: (3) Post traumatic stress disorder (PTSD): (4) Unspecified psychosis not due to a substance or known physiological condition: (5) Bilateral hip pain: (6) High serum thyroid stimulating hormone (TSH): (7) Thyroid nodule: (8) B12 deficiency: (9) Vitamin D deficiency disease: Plan 05/15/2024: Continue current medications and tx plan 05/14/2024: -Increase Invega to 1.5mg qAM and 3mg HS -Add miralax 05/13/2024: -Invega 1.5mg po BID -Colace-senna for constipation -Magnesium oxide 400mg BID 05/12/2024: EKG to assess QTc. Consider addition of Invega po. Fasting lipid panel and glucose in the AM. 05/11/2024: Consider adjusting dosing of Wellbutrin, will continue with current dosing for now. Start baby aspirin BID for one month (stop on 06/11/2024). 05/10/2024:The patient was admitted to the [facility] ([facility] mental health unit) on q15 min checks (behavioral with suicide precautions) for safety. The patient will participate in group, recreational, and milieu therapies and will be offered additional individual and family sessions as clinically appropriate. -Draw labs: Free t4, Vit D, B12. Restart home psychiatric medications. Orthoped ic consult for surgical radames removal. Voltaren gel TID for hip pain. Colace 100mg BID started. Administer international trauma questionnaire. Inventory Assets Strengths: outpatient connection, open to counseling Needs: family support, medication management Suicide Risk Level Suicide Risk Level: Moderate (q15 min suicide checks) (suicide attempt prior to admission and ongoing depression with SI but feels safe in the hospital and feels able to ask for support) Risk Factors Assessment Male: No : Yes Do You Have Access To A Gun?: No Health Problems: Yes Mental Health Diagnoses: Yes Substance Use Disorders: Yes Previous Attempt: Yes Family History of Suicide: No Previous Psychiatric Hospitalization: Yes Hopelessness: No Protective Factors Assessment Caodaism Beliefs: No : No Responsible for Young Children: No Employed: No Stable Relationships: No Supportive Family: No Good Rapport with Provider: Yes Absence of Any Risk Factors Above: No Interval History Identifying Information 54-year-old female with history of schizoaffective disorder depressed type, TIA, osteoarthritis, hypertension, hyperlipidemia, alcohol abuse presents with a suicide attempt where she gradually took 50+ tablets of Tylenol and consumed alcohol in the context of hip pain status post surgery and familial conflict. She was admitted on 05/09/24 17:33 on a 201 voluntary commitment. Chief Complaint "I'm alright". Review of Systems Sleep Information Total Hours of Sleep: 8 Meal Information Percent Meal Consumed - Breakfast: 50 Percent Meal Consumed - Lunch: 33 Percent Meal Consumed - Dinner: 45 Subjective Subjective Patient was seen & assessed and interval progress reviewed with treatment team nursing and social work. Reported worsened voices yesterday. Last night reported mood as "sad". Some SI last evening. Had a bowel movement last evening. Today reports no AH which she states is first time in 5 years this has happened. Attributes improvement to possible increase in Invega. However, still having VH of " people" today which has been distressing. Does find it a relief though to not hear loud voices today. Less SI today. Physical Exam Psychiatric Orientation: alert and oriented x 3 Apperance: appropriately dressed Eye Contact: + fair eye contact Motor Behavior: no abnormal motor movements Speech: normal rate/rhythm/volume of speech Affect: + constricted affect (but tiny bit less so today) Mood: + depressed mood Thought Process: + concrete thought process Thought Content: + delusions Suicidal Thoughts: denies suicidal plan (but s/p attempt); + reports suicidal thoughts (lessening ) Homicidal Thoughts: denies homicidal thoughts Hallucinations: + visual hallucinations; no auditory hallucinations Cognition: recent memory grossly intact, remote memory grossly intact, attention grossly intact and language grossly intact Insight: + limited insight Judgment: + limited judgement Vital Signs (Past 24 Hours) Last Vital Signs Temp 36.4 C L 05/15/24 06:31 Pulse 83 05/15/24 06:32 Resp 16 05/15/24 06:31 BP 100/65 05/15/24 06:32 Pulse Ox 97 05/13/24 06:00 O2 Del Method Room Air 05/13/24 06:00 Results & Data ([facility]) Current Inpatient Medications Current Inpatient Medications: Current Inpatient Medications Al Hydrox/Mg Hydrox/Simethicone (Aluminum/Magnesium Susp 30 Ml Udc) 30 ml PO Q4H PRN PRN Reason: GI Upset Stop: 06/08/24 13:45 Aspirin (Aspirin 81 Mg Ectab) 81 mg PO BID [facility] Stop: 06/10/24 20:59 Last Admin: 05/14/24 20:59 Dose: 81 mg Atorvastatin Calcium (Atorvastatin 40 Mg Tab) 80 mg PO QPM [facility] Stop: 06/09/24 20:59 Last Admin: 05/14/24 20:59 Dose: 80 mg Bismuth Subsalicylate (Bismuth Subsalicylate Liqd 236 Ml) 15 ml PO PRN PRN PRN Reason: Loose Stool Stop: 06/08/24 13:45 Bupropion HCl (Bupropion Sr 150 Mg Tabcr) 300 mg PO QAM [facility] Stop: 06/09/24 09:44 Last Admin: 05/14/24 08:34 Dose: 300 mg Clopidogrel Bisulfate (Clopidogrel Bisulfate 75 Mg Tab) 75 mg PO QAM [facility] Stop: 06/09/24 09:44 Last Admin: 05/14/24 08:35 Dose: 75 mg Cyanocobalamin (Cyanocobalamin (B-12) 500 Mcg Tablet) 500 mcg PO QAM [facility] Stop: 06/09/24 12:59 Last Admin: 05/14/24 08:35 Dose: 500 mcg Cyclobenzaprine HCl (Cyclobenzaprine Hcl 10 Mg Tab) 10 mg PO [facility] Stop: 06/09/24 21:59 Last Admin: 05/14/24 21:00 Dose: 10 mg Diclofenac Sodium (Diclofenac Sod 1% Gel 100 Gm Tube) 4 gm EXT TID [facility]; Protocol Stop: 06/09/24 13:59 Last Admin: 05/14/24 20:58 Dose: 4 gm Gabapentin (Gabapentin 800 Mg Tab) 800 mg PO TID [facility] Stop: 06/08/24 20:59 Last Admin: 05/14/24 20:59 Dose: 800 mg Hydroxyzine HCl (Hydroxyzine Hcl 25 Mg Tab) 50 mg PO HSZ PRN PRN Reason: Insomnia Stop: 06/08/24 13:45 Hydroxyzine HCl (Hydroxyzine Hcl 25 Mg Tab) 25 mg PO Q4H PRN PRN Reason: Anxiety Stop: 06/08/24 13:45 Lamotrigine (Lamotrigine 100 Mg Tab) 100 mg PO [facility]; Protocol Stop: 06/08/24 21:59 Last Admin: 05/14/24 20:59 Dose: 100 mg Magnesium Hydroxide (Magnesium Hydroxide Susp 30 Ml Udc) 30 ml PO DAILY PRN PRN Reason: Constipation Stop: 06/08/24 13:45 Last Admin: 05/14/24 08:33 Dose: 30 ml Magnesium Oxide (Magnesium Oxide 400 Mg Tab) 400 mg PO BID [facility] Stop: 06/12/24 12:29 Last Admin: 05/14/24 20:59 Dose: 400 mg Miscellaneous (Remove Nicoderm Patch) 1 each N/A DAILY@59 [facility] Stop: 06/12/24 08:58 Last Admin: 05/14/24 08:43 Dose: 1 each Nicotine (Nicotine 7 Mg/24 Hr Tdsy) 1 patch TD QAM [facility] Stop: 06/11/24 10:29 Last Admin: 05/14/24 08:33 Dose: 1 patch Nitroglycerin (Nitroglycerin Sl 0.4 Mg/Tab Tab) 0.4 mg SL Q5M PRN PRN Reason: chest pain Ondansetron HCl (Ondansetron 4 Mg Od Tab) 4 mg PO Q8 PRN PRN Reason: nausea Stop: 06/09/24 09:40 Paliperidone (Paliperidone 1.5 Mg Tabcr) 1.5 mg PO QAM [facility] Stop: 06/14/24 08:59 Paliperidone (Paliperidone 3 Mg Tabcr) 3 mg PO HS [facility] Stop: 06/13/24 21:59 Last Admin: 05/14/24 20:59 Dose: 3 mg Polyethylene Glycol (Polyethylene (Miralax) 17 Gm Pack) 17 gm PO DAILY [facility] Stop: 06/13/24 12:29 Last Admin: 05/14/24 12:47 Dose: 17 gm Senna/Docusate Sodium (Docusate Sodium/Senna 50/8.6mg Tab) 1 tab PO BID [facility] Stop: 06/12/24 20:59 Last Admin: 05/14/24 21:00 Dose: 1 tab Sertraline HCl (Sertraline Hcl 100 Mg Tablet) 200 mg PO HS [facility] Stop: 06/08/24 21:59 Last Admin: 05/14/24 20:59 Dose: 200 mg Sodium Chloride (Sodium Chloride 0.65% Na Soln 45 Ml ([place])) 1 - 2 sprays NA PRN PRN PRN Reason: Nasal Dryness/Congestion Stop: 06/08/24 13:45 Tramadol HCl (Tramadol Hcl 50 Mg Tablet) 50 mg PO Q6H PRN PRN Reason: moderate to severe pain Stop: 06/08/24 18:44 Last Admin: 05/14/24 19:20 Dose: 50 mg Trazodone HCl (Trazodone Hcl 100 Mg Tab) 200 mg PO HS [facility] Stop: 06/08/24 21:59 Last Admin: 05/14/24 20:59 Dose: 200 mg Vitamin D (Cholecalciferol 125 Mcg (5,000 Units) Tab) 125 mcg PO QAM [facility] Stop: 06/09/24 10:29 Last Admin: 05/14/24 08:37 Dose: 125 mcg Mental Health & Subst Abuse Tx Psychiatrist Name of Psychiatrist: Slava Carreon Psychiatrist's Date Of Appointment With Psychiatric Provider: 05/23/2024 Time of Appointment with Psychiatrist: 1500 Therapist Name of Therapist: [facility] ([facility]) Therapist's Date of Therapist Appointment: 05/17/2024 Time of Therapist Appointment: 1300 Therapy Appointment Comment: Patient will need to complete all forms that are emailed to her before appt Pediatric Pathologist Name of Pediatric Pathologist: Maggie @ [facility] Post Discharge Appointments Primary Care Physician Name Of Family Doctor/PCP: Dr. [facility]
[2024-05-15] MEDS: PALIPERIDONE 1.5 MG TABCR PO SCH (09:14)
--- NOTE | 2024-05-16 08:40 | Psychiatric Progress Note ---
Date of Service May 16, 2024 Impression / Recommendations Impression 54-year-old female with history of schizoaffective disorder depressed type, TIA, osteoarthritis, hypertension, hyperlipidemia, alcohol abuse presents with a suicide attempt where she gradually took 50+ tablets of Tylenol and consumed alcohol in the context of hip pain status post surgery and familial conflict. Presentation concerning for schizoaffective disorder versus PTSD. Suicide attempt was impulsive the patient reported history of past attempts being in a similar fashion. Concern for depressed mood state. Patient would benefit for inpatient psychiatry admission for medication management and connection to outpatient counseling. Labs reviewed: TSH elevated; UA, CMP, and CBC within expected limits; Tylenol levels are trending downward. Some concern for hypothyroidism and we will draw free T4 level in addition to vitamin D and B12. Home medications were reviewed and adjustments made. Concern for sleep apnea and counseled patient on following up with PCP for sleep study. A: More depressed today, likely due to more auditory hallucinations, still with VH. Per chart review multiple prior antipsychotic trials including haldol, Geodon, risperidone, Seroquel. Already on maximum KIRBY dose of Invega and given limited benefit for additional po at this point discussed option to add another antipsychotic given >3 failed trials of monotherapy and still with symptoms. She consents to starting abilify. MNPR due to hallucinations Overall, I spent a total of 25 minutes on this case including meeting with the patient, reviewing the chart, nursing report, multidisciplinary team meeting, orders, and documentation. (1) Intentional acetaminophen overdose: (2) Schizoaffective disorder, depressive type: (3) Post traumatic stress disorder (PTSD): (4) Unspecified psychosis not due to a substance or known physiological condition: (5) Bilateral hip pain: (6) High serum thyroid stimulating hormone (TSH): (7) Thyroid nodule: (8) B12 deficiency: (9) Vitamin D deficiency disease: Plan 05/16/24: -Discontinue Invega -Start abilify 5mg qd 05/15/2024: Continue current medications and tx plan 05/14/2024: -Increase Invega to 1.5mg qAM and 3mg HS -Add miralax 05/13/2024: -Invega 1.5mg po BID -Colace-senna for constipation -Magnesium oxide 400mg BID 05/12/2024: EKG to assess QTc. Consider addition of Invega po. Fasting lipid panel and glucose in the AM. 05/11/2024: Consider adjusting dosing of Wellbutrin, will continue with current dosing for now. Start baby aspirin BID for one month (stop on 06/11/2024). 05/10/2024:The patient was admitted to the [facility] ([facility]) on q15 min checks (behavioral with suicide precautions) for safety. The patient will participate in group, recreational, and milieu therapies and will be offered additional individual and family sessions as clinically appropriate. -Draw labs: Free t4, Vit D, B12. Restart home psychiatric medications. Orthopedic consult for surgical radames removal. Voltaren gel TID for hip pain. Colace 100mg BID started. Administer international trauma questionnaire. Inventory Assets Strengths: outpatient connection, open to counseling Needs: family support, medication management Suicide Risk Level Suicide Risk Level: Moderate (q15 min suicide checks) (suicide attempt prior to admission and ongoing depression with SI but feels safe in the hospital and feels able to ask for support) Risk Factors Assessment Male: No : Yes Do You Have Access To A Gun?: No Health Problems: Yes Mental Health Diagnoses: Yes Substance Use Disorders: Yes Previous Attempt: Yes Family History of Suicide: No Previous Psychiatric Hospitalization: Yes Hopelessness: No Protective Factors Assessment Jehovah'S Witness Beliefs: No : No Responsible for Young Children: No Employed: No Stable Relationships: No Supportive Family: No Good Rapport with Provider: Yes Absence of Any Risk Factors Above: No Interval History Identifying Information 54-year-old female with history of schizoaffective disorder depressed type, TIA, osteoarthritis, hypertension, hyperlipidemia, alcohol abuse presents with a suicide attempt where she gradually took 50+ tablets of Tylenol and consumed alcohol in the context of hip pain status post surgery and familial conflict. She was admitted on 05/09/24 17:33 on a 201 voluntary commitment. Chief Complaint "I'm sad, I don't know why". Review of Systems Sleep Information Total Hours of Sleep: 8.30 Sleep Comments: HS Trazadone Meal Information Percent Meal Consumed - Breakfast: 100 Percent Meal Consumed - Lunch: 100 Percent Meal Consumed - Dinner: 50 Subjective Subjective Patient was seen & assessed and interval progress reviewed with treatment team nursing and social work. Enjoyed playing games last evening. Today voices came back, still with VH of " people" and saw a "rat going out the door". Feels more depressed today. Pain slowly improving, varies during the day but prns help. She'd like to try another medication for the hallucinations. Physical Exam Psychiatric Orientation: alert and oriented x 3 Apperance: appropriately dressed Eye Contact: + fair eye contact Motor Behavior: no abnormal motor movements Speech: normal rate/rhythm/volume of speech Affect: + constricted affect (but tiny bit less so today) Mood: + depressed mood Thought Process: + concrete thought process Thought Content: + delusions Suicidal Thoughts: denies suicidal plan (but s/p attempt); + reports suicidal thoughts (lessening ) Homicidal Thoughts: denies homicidal thoughts Hallucinations: + auditory hallucinations and + visual hallucinations Cognition: recent memory grossly intact, remote memory grossly intact, attention grossly intact and language grossly intact Insight: + limited insight Judgment: + limited judgement Vital Signs (Past 24 Hours) Last Vital Signs Temp 36.5 C 05/16/24 06:32 Pulse 90 05/16/24 06:33 Resp 16 05/16/24 06:32 BP 105/69 05/16/24 06:33 Pulse Ox 97 05/13/24 06:00 O2 Del Method Room Air 05/13/24 06:00 Results & Data ([facility]) Current Inpatient Medications Current Inpatient Medications: Current Inpatient Medications Al Hydrox/Mg Hydrox/Simethicone (Aluminum/Magnesium Susp 30 Ml Udc) 30 ml PO Q4H PRN PRN Reason: GI Upset Stop: 06/08/24 13:45 Aspirin (Aspirin 81 Mg Ectab) 81 mg PO BID [facility] Stop: 06/10/24 20:59 Last Admin: 05/15/24 21:11 Dose: 81 mg Atorvastatin Calcium (Atorvastatin 40 Mg Tab) 80 mg PO QPM [facility] Stop: 06/09/24 20:59 Last Admin: 05/15/24 21:11 Dose: 80 mg Bismuth Subsalicylate (Bismuth Subsalicylate Liqd 236 Ml) 15 ml PO PRN PRN PRN Reason: Loose Stool Stop: 06/08/24 13:45 Bupropion HCl (Bupropion Sr 150 Mg Tabcr) 300 mg PO QAM [facility] Stop: 06/09/24 09:44 Last Admin: 05/15/24 09:15 Dose: 300 mg Clopidogrel Bisulfate (Clopidogrel Bisulfate 75 Mg Tab) 75 mg PO [facility] Stop: 06/09/24 09:44 Last Admin: 05/15/24 09:16 Dose: 75 mg Cyanocobalamin (Cyanocobalamin (B-12) 500 Mcg Tablet) [facility] [place]: 06/09/24 12:59 Last Admin: 05/15/24 09:17 Dose: 500 mcg Cyclobenzaprine HCl (Cyclobenzaprine Hcl 10 Mg Tab) 10 mg PO [facility] Stop: 06/09/24 21:59 Last Admin: 05/15/24 21:12 Dose: 10 mg Diclofenac Sodium (Diclofenac Sod 1% Gel 100 Gm Tube) 4 gm EXT TID [facility]; Protocol Stop: 06/09/24 13:59 Last Admin: 05/15/24 21:11 Dose: 4 gm Gabapentin (Gabapentin 800 Mg Tab) 800 mg PO TID [facility] Stop: 06/08/24 20:59 Last Admin: 05/15/24 21:12 Dose: 800 mg Hydroxyzine HCl (Hydroxyzine Hcl 25 Mg Tab) 50 mg PO HSZ PRN PRN Reason: Insomnia Stop: 06/08/24 13:45 Hydroxyzine HCl (Hydroxyzine Hcl 25 Mg Tab) 25 mg PO Q4H PRN PRN Reason: Anxiety Stop: 06/08/24 13:45 Lamotrigine (Lamotrigine 100 Mg Tab) 100 mg PO [facility]; Protocol Stop: 06/08/24 21:59 Last Admin: 05/15/24 21:12 Dose: 100 mg Magnesium Hydroxide (Magnesium Hydroxide Susp 30 Ml Udc) 30 ml PO DAILY PRN PRN Reason: Constipation Stop: 06/08/24 13:45 Last Admin: 05/14/24 08:33 Dose: 30 ml Magnesium Oxide (Magnesium Oxide 400 Mg Tab) 400 mg PO BID [facility] Stop: 06/12/24 12:29 Last Admin: 05/15/24 21:12 Dose: 400 mg Miscellaneous (Remove Nicoderm Patch) 1 each N/A DAILY@0859 [facility] Stop: 06/12/24 08:58 Last Admin: 05/15/24 09:22 Dose: 1 each Nicotine (Nicotine 7 Mg/24 Hr Tdsy) 1 patch TD [facility] Stop: 06/11/24 10:29 Last Admin: 05/15/24 09:22 Dose: 1 patch Nitroglycerin (Nitroglycerin Sl 0.4 Mg/Tab Tab) 0.4 mg SL Q5M PRN PRN Reason: chest pain Ondansetron HCl (Ondansetron 4 Mg Od Tab) 4 mg PO Q8 PRN PRN Reason: nausea Stop: 06/09/24 09:40 Paliperidone (Paliperidone 1.5 Mg Tabcr) 1.5 mg PO QAM [facility] Stop: 06/14/24 08:59 Last Admin: 05/15/24 09:14 Dose: 1.5 mg Paliperidone (Paliperidone 3 Mg Tabcr) 3 mg PO HS [facility] Stop: 06/13/24 21:59 Last Admin: 05/15/24 21:12 Dose: 3 mg Polyethylene Glycol (Polyethylene (Miralax) 17 Gm Pack) 17 gm PO DAILY [facility] Stop: 06/13/24 12:29 Last Admin: 05/15/24 09:11 Dose: 17 gm Senna/Docusate Sodium (Docusate Sodium/Senna 50/8.6mg Tab) 1 tab PO BID [facility] Stop: 06/12/24 20:59 Last Admin: 05/15/24 21:12 Dose: 1 tab Sertraline HCl (Sertraline Hcl 100 Mg Tablet) 200 mg PO HS [facility] Stop: 06/08/24 21:59 Last Admin: 05/15/24 21:12 Dose: 200 mg Sodium Chloride (Sodium Chloride 0.65% Na Soln 45 Ml ([place])) 1 - 2 sprays NA PRN PRN PRN Reason: Nasal Dryness/Congestion Stop: 06/08/24 13:45 Tramadol HCl (Tramadol Hcl 50 Mg Tablet) 50 mg PO Q6H PRN PRN Reason: moderate to severe pain Stop: 06/08/24 18:44 Last Admin: 05/15/24 12:04 Dose: 50 mg Trazodone HCl (Trazodone Hcl 100 Mg Tab) 200 mg PO HS [facility] Stop: 06/08/24 21:59 Last Admin: 05/15/24 21:13 Dose: 200 mg Vitamin D (Cholecalciferol 125 Mcg (5,000 Units) Tab) 125 mcg PO QAM [facility] Stop: 06/09/24 10:29 Last Admin: 05/15/24 09:16 Dose: 125 mcg Mental Health & Subst Abuse Tx Psychiatrist Name of Psychiatrist: Slava Carreon Psychiatrist's Date Of Appointment With Psychiatric Provider: 05/23/2024 Time of Appointment with Psychiatrist: 1500 Therapist Name of Therapist: [facility] ([facility]) Therapist's Date of Therapist Appointment: 05/23/24 Time of Therapist Appointment: 1015 (Telehealth) Therapy Appointment Comment: Telehealth appointment Child Specialist Name of Child Specialist: Maggie @ [facility] Phone Number for Child Specialist: [phone] Post Discharge Appointments Primary Care Physician Name Of Family Doctor/PCP: Dr. [facility]
[2024-05-17] MEDS: ARIPiprazole 5 MG TAB PO SCH (08:29)
--- NOTE | 2024-05-17 08:29 | Psychiatric Progress Note ---
Date of Service May 17, 2024 Impression / Recommendations Impression 54-year-old female with history of schizoaffective disorder depressed type, TIA, osteoarthritis, hypertension, hyperlipidemia, alcohol abuse presents with a suicide attempt where she gradually took 50+ tablets of Tylenol and consumed alcohol in the context of hip pain status post surgery and familial conflict. Presentation concerning for schizoaffective disorder versus PTSD. Suicide attempt was impulsive the patient reported history of past attempts being in a similar fashion. Concern for depressed mood state. Patient would benefit for inpatient psychiatry admission for medication management and connection to outpatient counseling. Labs reviewed: TSH elevated; UA, CMP, and CBC within expected limits; Tylenol levels are trending downward. Some concern for hypothyroidism and we will draw free T4 level in addition to vitamin D and B12. Home medications were reviewed and adjustments made. Concern for sleep apnea and counseled patient on following up with PCP for sleep study. A: Ongoing SI, less AH today after starting first dose of abilify which so far she is tolerating without any side effects. Reviewed that repeat EKG yesterday showed downtrending QTc which is encouraging even with addition of antipsychotic, will continue magnesium supplementation. MNPR due to hallucinations Overall, I spent a total of 25 minutes on this case including meeting with the patient, reviewing the chart, nursing report, multidisciplinary team meeting, orders, and documentation. 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 05/16/24: -Discontinue Invega -Start abilify 5mg qd 05/15/2024: Continue current medications and tx plan 05/14/2024: -Increase Invega to 1.5mg qAM and 3mg HS -Add miralax 05/13/2024: -Invega 1.5mg po BID -Colace-senna for constipation -Magnesium oxide 400mg BID 05/12/2024: EKG to assess QTc. Consider addition of Invega po. Fasting lipid panel and glucose in the AM. 05/11/2024: Consider adjusting dosing of Wellbutrin, will continue with current dosing for now. Start baby aspirin BID for one month (stop on 06/11/2024). 05/10/2024:The patient was admitted to the [facility]) on q15 min checks (behavioral with suicide precautions) for safety. The patient will participate in group, recreational, and milieu therapies and will be offered additional individual and family sessions as clinically appropriate. -Draw labs: Free t4, Vit D, B12. Restart home psychiatric medications. Orthopedic consult for surgical radames removal. Voltaren gel TID for hip pain. Colace 100mg BID started. Administer international trauma questionnaire. Inventory Assets Strengths: outpatient connection, open to counseling Needs: family support, medication management Suicide Risk Level Suicide Risk Level: Moderate (q15 min suicide checks) (suicide attempt prior to admission and ongoing depression with SI but feels safe in the hospital and feels able to ask for support) Risk Factors Assessment Male: No : Yes Do You Have Access To A Gun?: No Health Problems: Yes Mental Health Diagnoses: Yes Substance Use Disorders: Yes Previous Attempt: Yes Family History of Suicide: No Previous Psychiatric Hospitalization: Yes Hopelessness: No Protective Factors Assessment Congregational Beliefs: No : No Responsible for Young Children: No Employed: No Stable Relationships: No Supportive Family: No Good Rapport with Provider: Yes Absence of Any Risk Factors Above: No Interval History Identifying Information 54-year-old female with history of schizoaffective disorder depressed type, TIA, osteoarthritis, hypertension, hyperlipidemia, alcohol abuse presents with a suicide attempt where she gradually took 50+ tablets of Tylenol and consumed alcohol in the context of hip pain status post surgery and familial conflict. She was admitted on 05/09/24 17:33 on a 201 voluntary commitment. Chief Complaint "ok". Review of Systems Sleep Information Total Hours of Sleep: 6 Sleep Comments: Meal Information Percent Meal Consumed - Breakfast: 20 Percent Meal Consumed - Lunch: 100 Percent Meal Consumed - Dinner: 50 Subjective Subjective Patient was seen & assessed and interval progress reviewed with treatment team nursing and social work. More isolative to her room yesterday. Had some episodes of diarrhea. Slept well overnight. having some Si today. No AH. No VH yet today. No side effects so far from abilify. Physical Exam Psychiatric Orientation: alert and oriented x 3 Apperance: appropriately dressed Eye Contact: good eye contact Motor Behavior: no abnormal motor movements Speech: normal rate/rhythm/volume of speech Affect: + constricted affect (but with some smiles) Mood: + depressed mood Thought Process: + concrete thought process Thought Content: reality based without delusions Suicidal Thoughts: denies suicidal plan (but s/p attempt); + reports suicidal thoughts (lessening ) Homicidal Thoughts: denies homicidal thoughts Hallucinations: + auditory hallucinations (last night, none so far today) and + visual hallucinations Cognition: recent memory grossly intact, remote memory grossly intact, attention grossly intact and language grossly intact Insight: + limited insight Judgment: + limited judgement Vital Signs (Past 24 Hours) Last Vital Signs Temp 35.3 C L 05/17/24 06:00 Pulse 69 05/17/24 06:18 Resp 16 05/17/24 06:00 BP 126/81 05/17/24 06:18 Pulse Ox 97 05/13/24 06:00 O2 Del Method Room Air 05/13/24 06:00 Results & Data ([facility]) Current Inpatient Medications Current Inpatient Medications: Current Inpatient Medications Al Hydrox/Mg Hydrox/Simethicone (Aluminum/Magnesium Susp 30 Ml Udc) 30 ml PO Q4H PRN PRN Reason: GI Upset Stop: 06/08/24 13:45 Aripiprazole (Aripiprazole 5 Mg Tab) 5 mg PO QAM [facility] Stop: 06/16/24 08:59 Aspirin (Aspirin 81 Mg Ectab) 81 mg PO BID [facility] Stop: 06/10/24 20:59 Last Admin: 05/16/24 21:09 Dose: 81 mg Atorvastatin Calcium (Atorvastatin 40 Mg Tab) 80 mg PO QPM [facility] Stop: 06/09/24 20:59 Last Admin: 05/16/24 21:09 Dose: 80 mg Bismuth Subsalicylate (Bismuth Subsalicylate Liqd 236 Ml) 15 ml PO PRN PRN PRN Reason: Loose Stool Stop: 06/08/24 13:45 Bupropion HCl (Bupropion Sr 150 Mg Tabcr) 300 mg PO QAM [facility] Stop: 06/09/24 09:44 Last Admin: 05/16/24 08:38 Dose: 300 mg Clopidogrel Bisulfate (Clopidogrel Bisulfate 75 Mg Tab) 75 mg PO QAM [facility] Stop: 06/09/24 09:44 Last Admin: 05/16/24 08:38 Dose: 75 mg Cyanocobalamin (Cyanocobalamin (B-12) 500 Mcg Tablet) 500 mcg PO QAM [facility] Stop: 06/09/24 12:59 Last Admin: 05/16/24 08:37 Dose: 500 mcg Cyclobenzaprine HCl (Cyclobenzaprine Hcl 10 Mg Tab) 10 mg PO [facility] Stop: 06/09/24 21:59 Last Admin: 05/16/24 21:10 Dose: 10 mg Diclofenac Sodium (Diclofenac Sod 1% Gel 100 Gm Tube) 4 gm EXT TID [facility]; Protocol Stop: 06/09/24 13:59 Last Admin: 05/16/24 21:09 Dose: 4 gm Gabapentin (Gabapentin 800 Mg Tab) 800 mg PO TID [facility] Stop: 06/08/24 20:59 Last Admin: 05/16/24 21:10 Dose: 800 mg Hydroxyzine HCl (Hydroxyzine Hcl 25 Mg Tab) 50 mg PO HSZ PRN PRN Reason: Insomnia Stop: 06/08/24 13:45 Hydroxyzine HCl (Hydroxyzine Hcl 25 Mg Tab) 25 mg PO Q4H PRN PRN Reason: Anxiety Stop: 06/08/24 13:45 Lamotrigine (Lamotrigine 100 Mg Tab) 100 mg PO [facility]; Protocol Stop: 06/08/24 21:59 Last Admin: 05/16/24 21:10 Dose: 100 mg Magnesium Hydroxide (Magnesium Hydroxide Susp 30 Ml Udc) 30 ml PO DAILY PRN PRN Reason: Constipation Stop: 06/08/24 13:45 Last Admin: 05/14/24 08:33 Dose: 30 ml Magnesium Oxide (Magnesium Oxide 400 Mg Tab) 400 mg PO BID [facility] Stop: 06/12/24 12:29 Last Admin: 05/16/24 21:10 Dose: 400 mg Miscellaneous (Remove Nicoderm Patch) 1 each N/A DAILY@0859 [facility] Stop: 06/12/24 08:58 Last Admin: 05/16/24 08:39 Dose: 1 each Nicotine (Nicotine 7 Mg/24 Hr Tdsy) 1 patch TD QAM [facility] Stop: 06/11/24 10:29 Last Admin: 05/16/24 08:38 Dose: 1 patch Nitroglycerin (Nitroglycerin Sl 0.4 Mg/Tab Tab) 0.4 mg SL Q5M PRN PRN Reason: chest pain Ondansetron HCl (Ondansetron 4 Mg Od Tab) 4 mg PO Q8 PRN PRN Reason: nausea Stop: 06/09/24 09:40 Polyethylene Glycol (Polyethylene (Miralax) 17 Gm Pack) 17 gm PO DAILY [facility] Stop: 06/13/24 12:29 Last Admin: 05/16/24 08:40 Dose: 17 gm Senna/Docusate Sodium (Docusate Sodium/Senna 50/8.6mg Tab) 1 tab PO BID [facility] Stop: 06/12/24 20:59 Last Admin: 05/16/24 21:10 Dose: 1 tab Sertraline HCl (Sertraline Hcl 100 Mg Tablet) 200 mg PO HS [facility] Stop: 06/08/24 21:59 Last Admin: 05/16/24 21:11 Dose: 200 mg Sodium Chloride (Sodium Chloride 0.65% Na Soln 45 Ml ([place])) 1 - 2 sprays NA PRN PRN PRN Reason: Nasal Dryness/Congestion Stop: 06/08/24 13:45 Tramadol HCl (Tramadol Hcl 50 Mg Tablet) 50 mg PO Q6H PRN PRN Reason: moderate to severe pain Stop: 06/08/24 18:44 Last Admin: 05/17/24 01:39 Dose: 50 mg Trazodone HCl (Trazodone Hcl 100 Mg Tab) 200 mg PO HS [facility] Stop: 06/08/24 21:59 Last Admin: 05/16/24 21:11 Dose: 200 mg Vitamin D (Cholecalciferol 125 Mcg (5,000 Units) Tab) 125 mcg PO QAM [facility] Stop: 06/09/24 10:29 Last Admin: 05/16/24 08:37 Dose: 125 mcg Mental Health & Subst Abuse Tx Psychiatrist Name of Psychiatrist: Slava Carreon Psychiatrist's Date Of Appointment With Psychiatric Provider: 05/23/2024 Time of Appointment with Psychiatrist: 1500 Therapist Name of Therapist: [facility] ([facility]) Therapist's Date of Therapist Appointment: 05/23/24 Time of Therapist Appointment: 1015 (Telehealth) Therapy Appointment Comment: Telehealth appointment City Bus Driver Name of City Bus Driver: Maggie @ [place] [employer] [facility] Phone Number for City Bus Driver: [phone] Post Discharge Appointments Primary Care Physician Name Of Family Doctor/PCP: Dr. [facility]
[2024-05-17] MEDS ORDERED: DOCUSATE SODIUM/SENNA 50/8.6MG TAB PO PRN (08:30)
--- NOTE | 2024-05-17 11:26 | Electrocardiogram Report ---
Test Reason : Blood Pressure : */* mmHG Vent. Rate : 73 BPM Atrial Rate : 73 BPM P-R Int : 150 ms QRS Dur : 102 ms QT Int : 432 ms P-R-T Axes : 28 35 42 degrees QTcB Int : 475 ms Normal sinus rhythm Normal ECG When compared with ECG of 12-May-2024 15:51, Premature ventricular complexes are no longer Present Confirmed by Nir Daily ([id number]) on 05/17/2024 11:26:18 AM Referred By: Daren Senior Confirmed By: Nir Daily
--- NOTE | 2024-05-18 08:53 | Psychiatric Progress Note ---
Date of Service May 18, 2024 Impression / Recommendations Impression 54-year-old female with history of schizoaffective disorder depressed type, TIA, osteoarthritis, hypertension, hyperlipidemia, alcohol abuse presents with a suicide attempt where she gradually took 50+ tablets of Tylenol and consumed alcohol in the context of hip pain status post surgery and familial conflict. Presentation concerning for schizoaffective disorder versus PTSD. Suicide attempt was impulsive the patient reported history of past attempts being in a similar fashion. Concern for depressed mood state. Patient would benefit for inpatient psychiatry admission for medication management and connection to outpatient counseling. Labs reviewed: TSH elevated; UA, CMP, and CBC within expected limits; Tylenol levels are trending downward. Some concern for hypothyroidism and we will draw free T4 level in addition to vitamin D and B12. Home medications were reviewed and adjustments made. Concern for sleep apnea and counseled patient on following up with PCP for sleep study. A: Mood improving today, less anxiety, denies SI, no auditory hallucinations still with VH, tolerating abilify but may be causing worsened hypotension and orthostasis, will monitor this and if persists will reduce abilify dose tomorrow. MNPR due to hallucinations Overall, I spent a total of 25 minutes on this case including meeting with the patient, reviewing the chart, nursing report, multidisciplinary team meeting, orders, and documentation. (1) Intentional acetaminophen overdose: (2) Schizoaffective disorder, depressive type: (3) Post traumatic stress disorder (PTSD): (4) Unspecified psychosis not due to a substance or known physiological condition: (5) Bilateral hip pain: (6) High serum thyroid stimulating hormone (TSH): (7) Thyroid nodule: (8) B12 deficiency: (9) Vitamin D deficiency disease: Plan 05/18/2024: Continue current medications and tx plan. 05/17/2024: Continue current medications and tx plan. 05/16/24: -Discontinue Invega -Start abilify 5mg qd 05/15/2024: Continue current medications and tx plan 05/14/2024: -Increase Invega to 1.5mg qAM and 3mg HS -Add miralax 05/13/2024: -Invega 1.5mg po BID -Colace-senna for constipation -Magnesium oxide 400mg BID 05/12/2024: EKG to assess QTc. Consider addition of Invega po. Fasting lipid panel and glucose in the AM. 05/11/2024: Consider adjusting dosing of Wellbutrin, will continue with current dosing for now. Start baby aspirin BID for one month (stop on 06/11/2024). 05/10/2024:The patient was admitted to the [facility] ([facility] unit) on q15 min checks (behavioral with suicide precautions) for safety. The patient will participate in group, recreational, and milieu therapies and will be offered additional individual and family sessions as clinically appropriate. -Draw labs: Free t4, Vit D, B12. Restart home psychiatric medications. Orthopedic consult for surgical radames removal. Voltaren gel TID for hip pain. Colace 100mg BID started. Administer international trauma questionnaire. Inventory Assets Strengths: outpatient connection, open to counseling Needs: family support, medication management Suicide Risk Level Suicide Risk Level: Moderate (q15 min suicide checks) (suicide attempt prior to admission and ongoing depression with SI but feels safe in the hospital and feels able to ask for support) Risk Factors Assessment Male: No : Yes Do You Have Access To A Gun?: No Health Problems: Yes Mental Health Diagnoses: Yes Substance Use Disorders: Yes Previous Attempt: Yes Family History of Suicide: No Previous Psychiatric Hospitalization: Yes Hopelessness: No Protective Factors Assessment Hindu Beliefs: No : No Responsible for Young Children: No Employed: No Stable Relationships: No Supportive Family: No Good Rapport with Provider: Yes Absence of Any Risk Factors Above: No Interval History Identifying Information 54-year-old female with history of schizoaffective disorder depressed type, TIA, osteoarthritis, hypertension, hyperlipidemia, alcohol abuse presents with a suicide attempt where she gradually took 50+ tablets of Tylenol and consumed alcohol in the context of hip pain status post surgery and familial conflict. She was admitted on 05/09/24 17:33 on a 201 voluntary commitment. Chief Complaint "Good, my anxiety is down". Review of Systems Sleep Information Total Hours of Sleep: 8 Meal Information Percent Meal Consumed - Breakfast: 50 Percent Meal Consumed - Lunch: 100 Percent Meal Consumed - Dinner: 100 Subjective Subjective Patient was seen & assessed and interval progress reviewed with treatment team nursing and social work. More isolative last evening. Was irritated about getting phone calls and not wanting to talk on the phone. Feels her mood is a little better today due to lessened anxiety. Attributes this to fewer voices. Still seeing things, mostly in the evening. She attributes her mood improvement to the abilify. Reviewed that she was orthostatic and with low BP this morning. She wants to continue at current dose for now but is agreeable to plan to reduce dose if BP remains low tomorrow given concern for possibility of increasing risk of falling. Denies any current dizziness. Agrees to shift positions slowly and hydrate well. Had good phone calls this morning with her son and Sukumar. Physical Exam Psychiatric Orientation: alert and oriented x 3 Apperance: appropriately dressed Eye Contact: good eye contact Motor Behavior: no abnormal motor movements Speech: normal rate/rhythm/volume of speech Affect: + constricted affect (but with some smiles) Mood: + depressed mood (but less so today); no anxious mood Thought Process: + concrete thought process Thought Content: reality based without delusions Suicidal Thoughts: denies suicidal thoughts (lessening ) and denies suicidal plan (but s/p attempt) Homicidal Thoughts: denies homicidal thoughts Hallucinations: + visual hallucinations; no auditory hallucinations Cognition: recent memory grossly intact, remote memory grossly intact, attention grossly intact and language grossly intact Insight: + limited insight Judgment: + limited judgement Vital Signs (Past 24 Hours) Last Vital Signs Temp 35.5 C L 05/18/24 06:00 Pulse 80 05/18/24 06:22 Resp 16 05/18/24 06:00 BP 83/55 L 05/18/24 06:22 Pulse Ox 97 05/13/24 06:00 O2 Del Method Room Air 05/13/24 06:00 Results & Data ([facility]) Current Inpatient Medications Current Inpatient Medications: Current Inpatient Medications Al Hydrox/Mg Hydrox/Simethicone (Aluminum/Magnesium Susp 30 Ml Udc) 30 ml PO Q4H PRN PRN Reason: GI Upset Stop: 06/08/24 13:45 Aripiprazole (Aripiprazole 5 Mg Tab) 5 mg PO QAM [facility] Stop: 06/16/24 08:59 Last Admin: 05/18/24 08:42 Dose: 5 mg Aspirin (Aspirin 81 Mg Ectab) 81 mg PO BID [facility] Stop: 06/10/24 20:59 Last Admin: 05/18/24 08:42 Dose: 81 mg Atorvastatin Calcium (Atorvastatin 40 Mg Tab) 80 mg PO QPM [facility] Stop: 06/09/24 20:59 Last Admin: 05/17/24 20:46 Dose: 80 mg Bismuth Subsalicylate (Bismuth Subsalicylate Liqd 236 Ml) 15 ml PO PRN PRN PRN Reason: Loose Stool Stop: 06/08/24 13:45 Bupropion HCl (Bupropion Sr 150 Mg Tabcr) 300 mg PO [facility] Stop: 06/09/24 09:44 Last Admin: 05/18/24 08:42 Dose: 300 mg Clopidogrel Bisulfate (Clopidogrel Bisulfate 75 Mg Tab) 75 mg PO [facility] Stop: 06/09/24 09:44 Last Admin: 05/18/24 08:42 Dose: 75 mg Cyanocobalamin (Cyanocobalamin (B-12) 500 Mcg Tablet) 500 mcg PO [facility] Stop: 06/09/24 12:59 Last Admin: 05/18/24 08:42 Dose: 500 mcg Cyclobenzaprine HCl (Cyclobenzaprine Hcl 10 Mg Tab) 10 mg PO [facility] Stop: 06/09/24 21:59 Last Admin: 05/17/24 20:47 Dose: 10 mg Diclofenac Sodium (Diclofenac Sod 1% Gel 100 Gm Tube) 4 gm EXT TID [facility]; Protocol Stop: 06/09/24 13:59 Last Admin: 05/18/24 08:42 Dose: 4 gm Gabapentin (Gabapentin 800 Mg Tab) 800 mg PO TID [facility] Stop: 06/08/24 20:59 Last Admin: 05/18/24 08:43 Dose: 800 mg Hydroxyzine HCl (Hydroxyzine Hcl 25 Mg Tab) 50 mg PO HSZ PRN PRN Reason: Insomnia Stop: 06/08/24 13:45 Hydroxyzine HCl (Hydroxyzine Hcl 25 Mg Tab) 25 mg PO Q4H PRN PRN Reason: Anxiety Stop: 06/08/24 13:45 Lamotrigine (Lamotrigine 100 Mg Tab) 100 mg PO [facility]; Protocol Stop: 06/08/24 21:59 Last Admin: 05/17/24 20:47 Dose: 100 mg Magnesium Hydroxide (Magnesium Hydroxide Susp 30 Ml Udc) 30 ml PO DAILY PRN PRN Reason: Constipation Stop: 06/08/24 13:45 Last Admin: 05/14/24 08:33 Dose: 30 ml Magnesium Oxide (Magnesium Oxide 400 Mg Tab) 400 mg PO BID [facility] Stop: 06/12/24 12:29 Last Admin: 05/18/24 08:43 Dose: 400 mg Miscellaneous (Remove Nicoderm Patch) 1 each N/A DAILY@0859 [facility] Stop: 06/12/24 08:58 Last Admin: 05/18/24 08:50 Dose: 1 each Nicotine (Nicotine 7 Mg/24 Hr Tdsy) 1 patch TD QAM [facility] Stop: 06/11/24 10:29 Last Admin: 05/18/24 08:51 Dose: 1 patch Nitroglycerin (Nitroglycerin Sl 0.4 Mg/Tab Tab) 0.4 mg SL Q5M PRN PRN Reason: chest pain Ondansetron HCl (Ondansetron 4 Mg Od Tab) 4 mg PO Q8 PRN PRN Reason: nausea Stop: 06/09/24 09:40 Polyethylene Glycol (Polyethylene (Miralax) 17 Gm Pack) 17 gm PO DAILY [facility] Stop: 06/13/24 12:29 Last Admin: 05/18/24 08:40 Dose: 17 gm Senna/Docusate Sodium (Docusate Sodium/Senna 50/8.6mg Tab) 1 tab PO BID PRN PRN Reason: constipation Stop: 06/12/24 20:59 Sertraline HCl (Sertraline Hcl 100 Mg Tablet) 200 mg PO [facility] Stop: 06/08/24 21:59 Last Admin: 05/17/24 20:47 Dose: 200 mg Sodium Chloride (Sodium Chloride 0.65% Na Soln 45 Ml ([place])) 1 - 2 sprays NA PRN PRN PRN Reason: Nasal Dryness/Congestion Stop: 06/08/24 13:45 Tramadol HCl (Tramadol Hcl 50 Mg Tablet) 50 mg PO Q6H PRN PRN Reason: moderate to severe pain Stop: 06/08/24 18:44 Last Admin: 05/18/24 07:12 Dose: 50 mg Trazodone HCl (Trazodone Hcl 100 Mg Tab) 200 mg PO [facility] Stop: 06/08/24 21:59 Last Admin: 05/17/24 20:48 Dose: 200 mg Vitamin D (Cholecalciferol 125 Mcg (5,000 Units) Tab) 125 mcg PO QAM [facility] Stop: 06/09/24 10:29 Last Admin: 05/18/24 08:42 Dose: 125 mcg Mental Health & Subst Abuse Tx Psychiatrist Name of Psychiatrist: Slava Carreon Psychiatrist's Date Of Appointment With Psychiatric Provider: 05/23/2024 Time of Appointment with Psychiatrist: 1500 Therapist Name of Therapist: [facility] ([facility] Therapist's Date of Therapist Appointment: 05/23/24 Time of Therapist Appointment: 1015 (Telehealth) Therapy Appointment Comment: Telehealth appointment Supervisor Cured Meats Name of Supervisor Cured Meats: Maggie @ [facility] Phone Number for Supervisor Cured Meats: [phone] Post Discharge Appointments Primary Care Physician Name Of Family Doctor/PCP: Dr. [facility]
--- NOTE | 2024-05-19 09:41 | Psychiatric Progress Note ---
Date of Service May 19, 2024 Impression / Recommendations Impression 54-year-old female with history of schizoaffective disorder depressed type, TIA, osteoarthritis, hypertension, hyperlipidemia, alcohol abuse presents with a suicide attempt where she gradually took 50+ tablets of Tylenol and consumed alcohol in the context of hip pain status post surgery and familial conflict. Presentation concerning for schizoaffective disorder versus PTSD. Suicide attempt was impulsive the patient reported history of past attempts being in a similar fashion. Concern for depressed mood state. Patient would benefit for inpatient psychiatry admission for medication management and connection to outpatient counseling. Labs reviewed: TSH elevated; UA, CMP, and CBC within expected limits; Tylenol levels are trending downward. Some concern for hypothyroidism and we will draw free T4 level in addition to vitamin D and B12. Home medications were reviewed and adjustments made. Concern for sleep apnea and counseled patient on following up with PCP for sleep study. A: Some behavioral disorganization vs poor judgement this morning, still with depression and ambivalence about surviving suicide attempt. Very hypotensive so reducing dose of abilify in effort to continue providing some benefit for depression augmentation and psychosis. MNPR due to hallucinations, disrobing Overall, I spent a total of 25 minutes on this case including meeting with the patient, reviewing the chart, nursing report, multidisciplinary team meeting, orders, and documentation. 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 05/17/2024: Continue current medications and tx plan. 05/16/24: -Discontinue Invega -Start abilify 5mg qd 05/15/2024: Continue current medications and tx plan 05/14/2024: -Increase Invega to 1.5mg qAM and 3mg HS -Add miralax 05/13/2024: -Invega 1.5mg po BID -Colace-senna for constipation -Magnesium oxide 400mg BID 05/12/2024: EKG to assess QTc. Consider addition of Invega po. Fasting lipid panel and glucose in the AM. 05/11/2024: Consider adjusting dosing of Wellbutrin, will continue with current dosing for now. Start baby aspirin BID for one month (stop on 06/11/2024). 05/10/2024:The patient was admitted to the [facility] ([facility] unit) on q15 min checks (behavioral with suicide precautions) for safety. The patient will participate in group, recreational, and milieu therapies and will be offered additional individual and family sessions as clinically appropriate. -Draw labs: Free t4, Vit D, B12. Restart home psychiatric medications. O rthopedic consult for surgical radames removal. Voltaren gel TID for hip pain. Colace 100mg BID started. Administer international trauma questionnaire. Inventory Assets Strengths: outpatient connection, open to counseling Needs: family support, medication management Suicide Risk Level Suicide Risk Level: Moderate (q15 min suicide checks) (suicide attempt prior to admission and ongoing depression with SI but feels safe in the hospital and feels able to ask for support) Risk Factors Assessment Male: No : Yes Do You Have Access To A Gun?: No Health Problems: Yes Mental Health Diagnoses: Yes Substance Use Disorders: Yes Previous Attempt: Yes Family History of Suicide: No Previous Psychiatric Hospitalization: Yes Hopelessness: No Protective Factors Assessment Scientology Beliefs: No : No Responsible for Young Children: No Employed: No Stable Relationships: No Supportive Family: No Good Rapport with Provider: Yes Absence of Any Risk Factors Above: No Interval History Identifying Information 54-year-old female with history of schizoaffective disorder depressed type, TIA, osteoarthritis, hypertension, hyperlipidemia, alcohol abuse presents with a suicide attempt where she gradually took 50+ tablets of Tylenol and consumed alcohol in the context of hip pain status post surgery and familial conflict. She was admitted on 05/09/24 17:33 on a 201 voluntary commitment. Chief Complaint "Not glad to be alive". Review of Systems Sleep Information Total Hours of Sleep: 7.5 Meal Information Percent Meal Consumed - Breakfast: 50 Percent Meal Consumed - Lunch: 100 Percent Meal Consumed - Dinner: 100 Subjective Subjective Patient was seen & assessed and interval progress reviewed with treatment team nursing and social work. Attended one group yesterday but was noted to struggle, more isolative in the evening. Slept well. Very hypotensive this morning. Left the shower room this morning fully nude, where other patients were present, and accidentally went into the wrong room, she is able to laugh when reflecting on this and how next time she will ask for more towels. Today reports feeling a little better, "I'm getting my spirit back" but still is ambivalent about surviving the attempt noting that she is not yet glad to be alive, still at times wishing she had . But denies active SI today. States AH and VH "they're there" rates as 04/18. Denies side effects related to hypotension this morning but understanding of need to reduce abilify. Physical Exam Psychiatric Orientation: alert and oriented x 3 Apperance: appropriately dressed Eye Contact: good eye contact Motor Behavior: no abnormal motor movements Speech: normal rate/rhythm/volume of speech Affect: + constricted affect Mood: + depressed mood; no anxious mood Thought Process: + concrete thought process Thought Content: reality based without delusions Suicidal Thoughts: denies suicidal thoughts (lessening but still ambivalent about surviving the attempt) and denies suicidal plan (but s/p attempt) Homicidal Thoughts: denies homicidal thoughts Hallucinations: + auditory hallucinations and + visual hallucinations Cognition: recent memory grossly intact, remote memory grossly intact, attention grossly intact and language grossly intact Insight: + limited insight Judgment: + limited judgement Vital Signs (Past 24 Hours) Last Vital Signs Temp 36.5 C 05/19/24 06:33 Pulse 92 H 05/19/24 06:34 Resp 16 05/19/24 06:33 BP 77/59 L 05/19/24 06:34 Pulse Ox 97 05/13/24 06:00 O2 Del Method Room Air 05/13/24 06:00 Results & Data ([facility]) Current Inpatient Medications Current Inpatient Medications: Current Inpatient Medications Al Hydrox/Mg Hydrox/Simethicone (Aluminum/Magnesium Susp 30 Ml Udc) 30 ml PO Q4H PRN PRN Reason: GI Upset Stop: 06/08/24 13:45 Aripiprazole (Aripiprazole 5 Mg Tab) 5 mg PO QAM [facility] Stop: 06/16/24 08:59 Last Admin: 05/19/24 08:47 Dose: 5 mg Aspirin (Aspirin 81 Mg Ectab) 81 mg PO BID [facility] Stop: 06/10/24 20:59 Last Admin: 05/19/24 08:48 Dose: 81 mg Atorvastatin Calcium (Atorvastatin 40 Mg Tab) 80 mg PO QPM [facility] Stop: 06/09/24 20:59 Last Admin: 05/18/24 21:09 Dose: 80 mg Bismuth Subsalicylate (Bismuth Subsalicylate Liqd 236 Ml) 15 ml PO PRN PRN PRN Reason: Loose Stool Stop: 06/08/24 13:45 Bupropion HCl (B[facility]ropion Sr 150 Mg Tabcr) [facility] Stop: 06/09/24 09:44 Last Admin: 05/19/24 08:48 Dose: 300 mg Clopidogrel Bisulfate (Clopidogrel Bisulfate 75 Mg Tab) 75 mg PO [facility] Stop: 06/09/24 09:44 Last Admin: 05/19/24 08:47 Dose: 75 mg Cyanocobalamin (Cyanocobalamin (B-12) 500 Mcg Tablet) 500 mcg PO [facility] Stop: 06/09/24 12:59 Last Admin: 05/19/24 08:47 Dose: 500 mcg Cyclobenzaprine HCl (Cyclobenzaprine Hcl 10 Mg Tab) 10 mg PO [facility] Stop: 06/09/24 21:59 Last Admin: 05/18/24 21:11 Dose: 10 mg Diclofenac Sodium (Diclofenac Sod 1% Gel 100 Gm Tube) 4 gm EXT TID [facility]; Protocol Stop: 06/09/24 13:59 Last Admin: 05/19/24 08:48 Dose: 4 gm Gabapentin (Gabapentin 800 Mg Tab) 800 mg PO TID [facility] Stop: 06/08/24 20:59 Last Admin: 05/19/24 08:48 Dose: 800 mg Hydroxyzine HCl (Hydroxyzine Hcl 25 Mg Tab) 50 mg PO HSZ PRN PRN Reason: Insomnia Stop: 06/08/24 13:45 Hydroxyzine HCl (Hydroxyzine Hcl 25 Mg Tab) 25 mg PO Q4H PRN PRN Reason: Anxiety Stop: 06/08/24 13:45 Lamotrigine (Lamotrigine 100 Mg Tab) 100 mg PO HS [facility]; Protocol Stop: 06/08/24 21:59 Last Admin: 05/18/24 21:08 Dose: 100 mg Magnesium Hydroxide (Magnesium Hydroxide Susp 30 Ml Udc) 30 ml PO DAILY PRN PRN Reason: Constipation Stop: 06/08/24 13:45 Last Admin: 05/14/24 08:33 Dose: 30 ml Magnesium Oxide (Magnesium Oxide 400 Mg Tab) 400 mg PO BID [facility] Stop: 06/12/24 12:29 Last Admin: 05/19/24 08:47 Dose: 400 mg Miscellaneous (Remove Nicoderm Patch) 1 each N/A DAILY@0859 [facility] Stop: 06/12/24 08:58 Last Admin: 05/19/24 08:49 Dose: 1 each Nicotine (Nicotine 7 Mg/24 Hr Tdsy) 1 patch TD QAM [facility] Stop: 06/11/24 10:29 Last Admin: 05/19/24 08:48 Dose: 1 patch Nitroglycerin (Nitroglycerin Sl 0.4 Mg/Tab Tab) 0.4 mg SL Q5M PRN PRN Reason: chest pain Ondansetron HCl (Ondansetron 4 Mg Od Tab) 4 mg PO Q8 PRN PRN Reason: nausea Stop: 06/09/24 09:40 Polyethylene Glycol (Polyethylene (Miralax) 17 Gm Pack) 17 gm PO DAILY [facility] Stop: 06/13/24 12:29 Last Admin: 05/19/24 09:15 Dose: 17 gm Senna/Docusate Sodium (Docusate Sodium/Senna 50/8.6mg Tab) 1 tab PO BID PRN PRN Reason: constipation Stop: 06/12/24 20:59 Sertraline HCl (Sertraline Hcl 100 Mg Tablet) 200 mg PO [facility] Stop: 06/08/24 21:59 Last Admin: 05/18/24 21:11 Dose: 200 mg Sodium Chloride (Sodium Chloride 0.65% Na Soln 45 Ml ([place])) 1 - 2 sprays NA PRN PRN PRN Reason: Nasal Dryness/Congestion Stop: 06/08/24 13:45 Tramadol HCl (Tramadol Hcl 50 Mg Tablet) 50 mg PO Q6H PRN PRN Reason: moderate to severe pain Stop: 06/08/24 18:44 Last Admin: 05/18/24 07:12 Dose: 50 mg Trazodone HCl (Trazodone Hcl 100 Mg Tab) 200 mg PO [facility] Stop: 06/08/24 21:59 Last Admin: 05/18/24 21:10 Dose: 200 mg Vitamin D (Cholecalciferol 125 Mcg (5,000 Units) Tab) 125 mcg PO QAM [facility] Stop: 06/09/24 10:29 Last Admin: 05/19/24 08:47 Dose: 125 mcg Mental Health & Subst Abuse Tx Psychiatrist Name of Psychiatrist: Slava Carreon Psychiatrist's Date Of Appointment With Psychiatric Provider: 05/23/2024 Time of Appointment with Psychiatrist: 1500 Therapist Name of Therapist: [facility] ([facility]) Therapist's Date of Therapist Appointment: 05/23/24 Time of Therapist Appointment: 1015 (Telehealth) Therapy Appointment Comment: Telehealth appointment [employer]ographer [employer] Name of Photographer [employer]: Maggie @ [facility] Phone Number for Photographer [employer]: [phone] Post Discharge Appointments Primary Care Physician Name Of Family Doctor/PCP: Dr. Hough [facility] Date of Future Appointment with PCP: 05/30/24 Time of Appointment with PCP: 1pm
[2024-05-20] MEDS: ARIPiprazole 5 MG TAB PO SCH (08:38)
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
--- NOTE | 2024-05-21 08:48 | Psychiatric Progress Note ---
Date of Service May 21, 2024 Impression / Recommendations Impression 54-year-old female with history of schizoaffective disorder depressed type, TIA, osteoarthritis, hypertension, hyperlipidemia, alcohol abuse presents with a suicide attempt where she gradually took 50+ tablets of Tylenol and consumed alcohol in the context of hip pain status post surgery and familial conflict. Presentation concerning for schizoaffective disorder versus PTSD. Suicide attempt was impulsive the patient reported history of past attempts being in a similar fashion. Concern for depressed mood state. Patient would benefit for inpatient psychiatry admission for medication management and connection to outpatient counseling. Labs reviewed: TSH elevated; UA, CMP, and CBC within expected limits; Tylenol levels are trending downward. Some concern for hypothyroidism and we will draw free T4 level in addition to vitamin D and B12. Home medications were reviewed and adjustments made. Concern for sleep apnea and counseled patient on following up with PCP for sleep study. A: Continues to feel depressed and doesn't like having survived the attempt but feels less like she would attempt suicide again. BP improved with lower dose of abilify but now with worsening of hallucinations. She consents to trial of Latuda, reviewed side effects including movement and metabolic. MNPR due to hallucinations, hx of disrobing Overall, I spent a total of 30 minutes on this case including meeting with the patient, reviewing the chart, nursing report, multidisciplinary team meeting, orders, and documentation. (1) Intentional acetaminophen overdose: (2) Schizoaffective disorder, depressive type: (3) Post traumatic stress disorder (PTSD): (4) Unspecified psychosis not due to a substance or known physiological condition: (5) Bilateral hip pain: (6) High serum thyroid stimulating hormone (TSH): (7) Thyroid nodule: (8) B12 deficiency: (9) Vitamin D deficiency disease: Plan 05/21/2024: Discontinue abilify. Start Latuda 40mg qdinner 05/20/2024: Continue current medications and tx plan. 05/19/2024: Decrease abilify to 2.5mg daily due to prominent hypotension 05/18/2024: Continue current medications and tx plan. 05/17/2024: Continue current medications and tx plan. 05/16/24: -Discontinue Invega -Start abilify 5mg qd 05/15/2024: Continue current medications and tx plan 05/14/2024: -Increase Invega to 1.5mg qAM and 3mg HS -Add miralax 05/13/2024: -Invega 1.5mg po BID -Colace-senna for constipation -Magnesium oxide 400mg BID 05/12/2024: EKG to assess QTc. Consider addition of Invega po. Fasting lipid panel and glucose in the AM. 05/11/2024: Consider adjusting dosing of Wellbutrin, will continue with current dosing for now. Start baby aspirin BID for one month (stop on 06/11/2024). 05/10/2024:The patient was admitted to the [facility] ([facility] unit) on q15 min checks (behavioral with suicide precautions) for safety. The patient will participate in group, recreational, and milieu therapies and will be offered additional individual and family sessions as clinically appropriate. -Draw labs: Free t4, Vit D, B12. Restart home psychiatric medications. Orthopedic consult for surgical radames removal. Voltaren gel TID for hip pain. Colace 100mg BID started. Administer international trauma questionnaire. Inventory Assets Strengths: outpatient connection, open to counseling Needs: family support, medication management Suicide Risk Level Suicide Risk Level: Moderate (q15 min suicide checks) (suicide attempt prior to admission and ongoing depression with SI but feels safe in the hospital and feels able to ask for support) Risk Factors Assessment Male: No : Yes Do You Have Access To A Gun?: No Health Problems: Yes Mental Health Diagnoses: Yes Substance Use Disorders: Yes Previous Attempt: Yes Family History of Suicide: No Previous Psychiatric Hospitalization: Yes Hopelessness: No Protective Factors Assessment Latter Day Beliefs: No : No Responsible for Young Children: No Employed: No Stable Relationships: No Supportive Family: No Good Rapport with Provider: Yes Absence of Any Risk Factors Above: No Interval History Identifying Information 54-year-old female with history of schizoaffective disorder depressed type, TIA, osteoarthritis, hypertension, hyperlipidemia, alcohol abuse presents with a suicide attempt where she gradually took 50+ tablets of Tylenol and consumed alcohol in the context of hip pain status post surgery and familial conflict. She was admitted on 05/09/24 17:33 on a 201 voluntary commitment. Chief Complaint "It sucks, I don't like life". Review of Systems Sleep Information Total Hours of Sleep: 7.5 Meal Information Percent Meal Consumed - Breakfast: 100 Percent Meal Consumed - Lunch: 100 Percent Meal Consumed - Dinner: 50 Subjective Subjective Patient was seen & assessed and interval progress reviewed with treatment team nursing and social work. More isolative yesterday. Improved BP. Today reports less SI but still feels it "sucks" to be alive. Reports that she doesn't like life. Thinks she may try calling centre safe today. Having some AH and VH (of heads) today. She thinks the abilify helps a little bit but also wishes the voices would go away more. Discussed option to trial Latuda which she would like to do. Physical Exam Psychiatric Orientation: alert and oriented x 3 Apperance: appropriately dressed Eye Contact: good eye contact Motor Behavior: no abnormal motor movements Speech: normal rate/rhythm/volume of speech Affect: + constricted affect Mood: + depressed mood; no anxious mood Thought Process: + concrete thought process Thought Content: reality based without delusions Suicidal Thoughts: denies suicidal thoughts (lessening but still ambivalent about surviving the attempt) and denies suicidal plan (but s/p attempt) Homicidal Thoughts: denies homicidal thoughts Hallucinations: + auditory hallucinations and + visual hallucinations Cognition: recent memory grossly intact, remote memory grossly intact, attention grossly intact and language grossly intact Insight: + limited insight Judgment: + limited judgement Vital Signs (Past 24 Hours) Last Vital Signs Temp 36.6 C 05/21/24 06:34 Pulse 77 05/21/24 06:35 Resp 16 05/21/24 06:34 BP 121/65 05/21/24 06:35 Pulse Ox 97 05/13/24 06:00 O2 Del Method Room Air 05/13/24 06:00 Results & Data ([facility]) Current Inpatient Medications Current Inpatient Medications: Current Inpatient Medications Al Hydrox/Mg Hydrox/Simethicone (Aluminum/Magnesium Susp 30 Ml Udc) 30 ml PO Q4H PRN PRN Reason: GI Upset Stop: 06/08/24 13:45 Aripiprazole (Aripiprazole 5 Mg Tab) 2.5 mg PO QAM [facility] Stop: 06/19/24 08:59 Last Admin: 05/20/24 08:38 Dose: 2.5 mg Aspirin (Aspirin 81 Mg Ectab) 81 mg PO BID [facility] Stop: 06/10/24 20:59 Last Admin: 05/20/24 21:21 Dose: 81 mg Atorvastatin Calcium (Atorvastatin 40 Mg Tab) 80 mg PO QPM [facility] Stop: 06/09/24 20:59 Last Admin: 05/20/24 21:20 Dose: 80 mg Bismuth Subsalicylate (Bismuth Subsalicylate Liqd 236 Ml) 15 ml PO PRN PRN PRN Reason: Loose Stool Stop: 06/08/24 13:45 Bupropion HCl (Bupropion Sr 150 Mg Tabcr) [address] [facility] Stop: 06/09/24 09:44 Last Admin: 05/20/24 08:39 Dose: 300 mg Clopidogrel Bisulfate (Clopidogrel Bisulfate 75 Mg Tab) [address] [facility] Stop: 06/09/24 09:44 Last Admin: 05/20/24 08:39 Dose: 75 mg Cyanocobalamin (Cyanocobalamin (B-12) 500 Mcg Tablet) [address] [facility] Stop: 06/09/24 12:59 Last Admin: 05/20/24 08:39 Dose: 500 mcg Cyclobenzaprine HCl (Cyclobenzaprine Hcl 10 Mg Tab) 10 mg PO [facility] Stop: 06/09/24 21:59 Last Admin: 05/20/24 21:20 Dose: 10 mg Diclofenac Sodium (Diclofenac Sod 1% Gel 100 Gm Tube) 4 gm EXT TID [facility]; Protocol Stop: 06/09/24 13:59 Last Admin: 05/20/24 21:19 Dose: 4 gm Gabapentin (Gabapentin 800 Mg Tab) 800 mg PO TID [facility] Stop: 06/08/24 20:59 Last Admin: 05/20/24 21:19 Dose: 800 mg Hydroxyzine HCl (Hydroxyzine Hcl 25 Mg Tab) 50 mg PO HSZ PRN PRN Reason: Insomnia Stop: 06/08/24 13:45 Hydroxyzine HCl (Hydroxyzine Hcl 25 Mg Tab) 25 mg PO Q4H PRN PRN Reason: Anxiety Stop: 06/08/24 13:45 Lamotrigine (Lamotrigine 100 Mg Tab) 100 mg PO HS [facility]; Protocol Stop: 06/08/24 21:59 Last Admin: 05/20/24 21:21 Dose: 100 mg Magnesium Hydroxide (Magnesium Hydroxide Susp 30 Ml Udc) 30 ml PO DAILY PRN PRN Reason: Constipation Stop: 06/08/24 13:45 Last Admin: 05/14/24 08:33 Dose: 30 ml Magnesium Oxide (Magnesium Oxide 400 Mg Tab) 400 mg PO BID [facility] Stop: 06/12/24 12:29 Last Admin: 05/20/24 21:20 Dose: 400 mg Miscellaneous (Remove Nicoderm Patch) 1 each N/A DAILY@0859 [facility] Stop: 06/12/24 08:58 Last Admin: 05/20/24 08:39 Dose: 1 each Nicotine (Nicotine 7 Mg/24 Hr Tdsy) 1 patch TD QAM [facility] Stop: 06/11/24 10:29 Last Admin: 05/20/24 08:36 Dose: 1 patch Nitroglycerin (Nitroglycerin Sl 0.4 Mg/Tab Tab) 0.4 mg SL Q5M PRN PRN Reason: chest pain Ondansetron HCl (Ondansetron 4 Mg Od Tab) 4 mg PO Q8 PRN PRN Reason: nausea Stop: 06/09/24 09:40 Polyethylene Glycol (Polyethylene (Miralax) 17 Gm Pack) 17 gm PO DAILY [facility] Stop: 06/13/24 12:29 Last Admin: 05/20/24 08:40 Dose: 17 gm Senna/Docusate Sodium (Docusate Sodium/Senna 50/8.6mg Tab) 1 tab PO BID PRN PRN Reason: constipation Stop: 06/12/24 20:59 Sertraline HCl (Sertraline Hcl 100 Mg Tablet) 200 mg PO HS [facility] Stop: 06/08/24 21:59 Last Admin: 05/20/24 21:19 Dose: 200 mg Sodium Chloride (Sodium Chloride 0.65% Na Soln 45 Ml ([place])) 1 - 2 sprays NA PRN PRN PRN Reason: Nasal Dryness/Congestion Stop: 06/08/24 13:45 Tramadol HCl (Tramadol Hcl 50 Mg Tablet) 50 mg PO Q6H PRN PRN Reason: moderate to severe pain Stop: 06/08/24 18:44 Last Admin: 05/18/24 07:12 Dose: 50 mg Trazodone HCl (Trazodone Hcl 100 Mg Tab) 200 mg PO HS [facility] Stop: 06/08/24 21:59 Last Admin: 05/20/24 21:22 Dose: 200 mg Vitamin D (Cholecalciferol 125 Mcg (5,000 Units) Tab) 125 mcg PO QAM [facility] Stop: 06/09/24 10:29 Last Admin: 05/20/24 08:39 Dose: 125 mcg Mental Health & Subst Abuse Tx Psychiatrist Name of Psychiatrist: Slava Carreon Psychiatrist's Date Of Appointment With Psychiatric Provider: 05/23/2024 Time of Appointment with Psychiatrist: 1500 Therapist Name of Therapist: [facility] ([place]) Therapist's Date of Therapist Appointment: 05/23/24 Time of Therapist Appointment: 1015 (Telehealth) Therapy Appointment Comment: Telehealth appointment Snipper Name of Snipper: Maggie @ [place] [facility] Phone Number for Snipper: [phone] Post Discharge Appointments Primary Care Physician Name Of Family Doctor/PCP: Dr. Hough [facility] Date of Future Appointment with PCP: 05/30/24 Time of Appointment with PCP: 1pm
[2024-05-21] MEDS: LURASIDONE HCL 20 MG TAB PO SCH (17:28)
--- NOTE | 2024-05-22 08:50 | Psychiatric Progress Note ---
Date of Service May 22, 2024 Impression / Recommendations Impression 54-year-old female with history of schizoaffective disorder depressed type, TIA, osteoarthritis, hypertension, hyperlipidemia, alcohol abuse presents with a suicide attempt where she gradually took 50+ tablets of Tylenol and consumed alcohol in the context of hip pain status post surgery and familial conflict. Presentation concerning for schizoaffective disorder versus PTSD. Suicide attempt was impulsive the patient reported history of past attempts being in a similar fashion. Concern for depressed mood state. Patient would benefit for inpatient psychiatry admission for medication management and connection to outpatient counseling. Labs reviewed: TSH elevated; UA, CMP, and CBC within expected limits; Tylenol levels are trending downward. Some concern for hypothyroidism and we will draw free T4 level in addition to vitamin D and B12. Home medications were reviewed and adjustments made. Concern for sleep apnea and counseled patient on following up with PCP for sleep study. A: Ongoing depression, slight reduction of hallucinations today. Tolerating Latuda so far and no signs of hypotension that occurred with abilify. MNPR due to hallucinations, hx of disrobing Overall, I spent a total of 25 minutes on this case including meeting with the patient, reviewing the chart, nursing report, multidisciplinary team meeting, orders, and documentation. (1) Intentional acetaminophen overdose: (2) Schizoaffective disorder, depressive type: (3) Post traumatic stress disorder (PTSD): (4) Unspecified psychosis not due to a substance or known physiological condition: (5) Bilateral hip pain: (6) High serum thyroid stimulating hormone (TSH): (7) Thyroid nodule: (8) B12 deficiency: (9) Vitamin D deficiency disease: Plan 05/22/2024: Continue current medications and tx plan. 05/21/2024: Discontinue abilify. Start Latuda 40mg qdinner 05/20/2024: Continue current medications and tx plan. 05/19/2024: Decrease abilify to 2.5mg daily due to prominent hypotension 05/18/2024: Continue current medications and tx plan. 05/17/2024: Continue current medications and tx plan. 05/16/24: -Discontinue Invega -Start abilify 5mg qd 05/15/2024: Continue current medications and tx plan 05/14/2024: -Increase Invega to 1.5mg qAM and 3mg HS -Add miralax 05/13/2024: -Invega 1.5mg po BID -Colace-senna for constipation -Magnesium oxide 400mg BID 05/12/2024: EKG to assess QTc. Consider addition of Invega po. Fasting lipid panel and glucose in the AM. 05/11/2024: Consider adjusting dosing of Wellbutrin, will continue with current dosing for now. Start baby aspirin BID for one month (stop on 06/11/2024). 05/10/2024:The patient was admitted to the [facility] ([facility]) on q15 min checks (behavioral with suicide precautions) for safety. The patient will participate in group, recreational, and milieu therapies and will be offered additional individual and family sessions as clinically appropriate. -Draw labs: Free t4, Vit D, B12. Restart home psychiatric medications. Orthopedic consult for surgical radames removal. Voltaren gel TID for hip pain. Colace 100mg BID started. Administer international trauma questionnaire. Inventory Assets Strengths: outpatient connection, open to counseling Needs: family support, medication management Suicide Risk Level Suicide Risk Level: Moderate (q15 min suicide checks) (suicide attempt prior to admission and ongoing depression with SI but feels safe in the hospital and feels able to ask for support) Risk Factors Assessment Male: No : Yes Do You Have Access To A Gun?: No Health Problems: Yes Mental Health Diagnoses: Yes Substance Use Disorders: Yes Previous Attempt: Yes Family History of Suicide: No Previous Psychiatric Hospitalization: Yes Hopelessness: No Protective Factors Assessment Mandaen Beliefs: No : No Responsible for Young Children: No Employed: No Stable Relationships: No Supportive Family: No Good Rapport with Provider: Yes Absence of Any Risk Factors Above: No Interval History Identifying Information 54-year-old female with history of schizoaffective disorder depressed type, TIA, osteoarthritis, hypertension, hyperlipidemia, alcohol abuse presents with a suicide attempt where she gradually took 50+ tablets of Tylenol and consumed alcohol in the context of hip pain status post surgery and familial conflict. She was admitted on 05/09/24 17:33 on a 201 voluntary commitment. Chief Complaint "Marizol depressed". Review of Systems Sleep Information Total Hours of Sleep: 8 Meal Information Percent Meal Consumed - Breakfast: 100 Percent Meal Consumed - Lunch: 50 Percent Meal Consumed - Dinner: 100 Subjective Subjective Patient was seen & assessed and interval progress reviewed with treatment team nursing and social work. Quite isolative to her room last evening, declined many groups. Rated her mood last night as "depressed". Talked to both her sons and Sukumar on the phone. Sukumar reported he misses her and "loves her" and "blah blah blah, he just misses me being there doing your dirty work". Having AH and VH but "not that bad". No side effects from the Latuda so far. Slept well. She thinks she went to all of the groups yesterday. Still feeling depressed. Physical Exam Psychiatric Orientation: alert and oriented x 3 Apperance: appropriately dressed Eye Contact: good eye contact Motor Behavior: no abnormal motor movements Speech: normal rate/rhythm/volume of speech Affect: + constricted affect Mood: + depressed mood; no anxious mood Thought Process: + concrete thought process Thought Content: reality based without delusions Suicidal Thoughts: denies suicidal thoughts (lessening but still ambivalent about surviving the attempt) and denies suicidal plan (but s/p attempt) Homicidal Thoughts: denies homicidal thoughts Hallucinations: + auditory hallucinations and + visual hallucinations Cognition: recent memory grossly intact, remote memory grossly intact, attention grossly intact and language grossly intact Insight: + limited insight Judgment: + limited judgement Vital Signs (Past 24 Hours) Last Vital Signs Temp 36.4 C L 05/22/24 06:32 Pulse 76 05/22/24 06:32 Resp 16 05/22/24 06:32 BP 120/82 05/22/24 06:32 Pulse Ox 97 05/13/24 06:00 O2 Del Method Room Air 05/13/24 06:00 Results & Data ([facility]) Current Inpatient Medications Current Inpatient Medications: Current Inpatient Medications Al Hydrox/Mg Hydrox/Simethicone (Aluminum/Magnesium Susp 30 Ml Udc) 30 ml PO Q4H PRN PRN Reason: GI Upset Stop: 06/08/24 13:45 Aspirin (Aspirin 81 Mg Ectab) 81 mg PO BID [facility] Stop: 06/10/24 20:59 Last Admin: 05/21/24 21:10 Dose: 81 mg Atorvastatin Calcium (Atorvastatin 40 Mg Tab) 80 mg PO QPM [facility] Stop: 06/09/24 20:59 Last Admin: 05/21/24 21:10 Dose: 80 mg Bismuth Subsalicylate (Bismuth Subsalicylate Liqd 236 Ml) 15 ml PO PRN PRN PRN Reason: Loose Stool Stop: 06/08/24 13:45 Bupropion HCl (Bupropion Sr 150 Mg Tabcr) 300 mg PO [facility] Stop: 06/09/24 09:44 Last Admin: 05/21/24 08:52 Dose: 300 mg Clopidogrel Bisulfate (Clopidogrel Bisulfate 75 Mg Tab) 75 mg PO [facility] Stop: 06/09/24 09:44 Last Admin: 05/21/24 08:51 Dose: 75 mg Cyanocobalamin (Cyanocobalamin (B-12) 500 Mcg Tablet) 500 mcg PO [facility] Stop: 06/09/24 12:59 Last Admin: 05/21/24 08:52 Dose: 500 mcg Cyclobenzaprine HCl (Cyclobenzaprine Hcl 10 Mg Tab) 10 mg PO [facility] Stop: 06/09/24 21:59 Last Admin: 05/21/24 21:11 Dose: 10 mg Diclofenac Sodium (Diclofenac Sod 1% Gel 100 Gm Tube) 4 gm EXT TID [facility]; Protocol Stop: 06/09/24 13:59 Last Admin: 05/21/24 21:14 Dose: 4 gm Gabapentin (Gabapentin 800 Mg Tab) 800 mg PO TID [facility] Stop: 06/08/24 20:59 Last Admin: 05/21/24 21:11 Dose: 800 mg Hydroxyzine HCl (Hydroxyzine Hcl 25 Mg Tab) 50 mg PO HSZ PRN PRN Reason: Insomnia Stop: 06/08/24 13:45 Hydroxyzine HCl (Hydroxyzine Hcl 25 Mg Tab) 25 mg PO Q4H PRN PRN Reason: Anxiety Stop: 06/08/24 13:45 Lamotrigine (Lamotrigine 100 Mg Tab) 100 mg PO HS [facility]; Protocol Stop: 06/08/24 21:59 Last Admin: 05/21/24 21:12 Dose: 100 mg Lurasidone HCl (Lurasidone Hcl 20 Mg Tab) 40 mg PO DAILYBD [facility] Stop: 06/20/24 17:14 Last Admin: 05/21/24 17:28 Dose: 40 mg Magnesium Hydroxide (Magnesium Hydroxide Susp 30 Ml Udc) 30 ml PO DAILY PRN PRN Reason: Constipation Stop: 06/08/24 13:45 Last Admin: 05/14/24 08:33 Dose: 30 ml Magnesium Oxide (Magnesium Oxide 400 Mg Tab) 400 mg PO BID [facility] Stop: 06/12/24 12:29 Last Admin: 05/21/24 21:11 Dose: 400 mg Miscellaneous (Remove Nicoderm Patch) 1 each N/A DAILY@0859 [facility] Stop: 06/12/24 08:58 Last Admin: 05/21/24 08:57 Dose: 1 each Nicotine (Nicotine 7 Mg/24 Hr Tdsy) 1 patch TD QAM [facility] Stop: 06/11/24 10:29 Last Admin: 05/21/24 08:53 Dose: 1 patch Nitroglycerin (Nitroglycerin Sl 0.4 Mg/Tab Tab) 0.4 mg SL Q5M PRN PRN Reason: chest pain Ondansetron HCl (Ondansetron 4 Mg Od Tab) 4 mg PO Q8 PRN PRN Reason: nausea Stop: 06/09/24 09:40 Polyethylene Glycol (Polyethylene (Miralax) 17 Gm Pack) 17 gm PO DAILY [facility] Stop: 06/13/24 12:29 Last Admin: 05/21/24 08:53 Dose: 17 gm Senna/Docusate Sodium (Docusate Sodium/Senna 50/8.6mg Tab) 1 tab PO BID PRN PRN Reason: constipation Stop: 06/12/24 20:59 Sertraline HCl (Sertraline Hcl 100 Mg Tablet) 200 mg PO HS [facility] Stop: 06/08/24 21:59 Last Admin: 05/21/24 21:13 Dose: 200 mg Sodium Chloride (Sodium Chloride 0.65% Na Soln 45 Ml ([place])) 1 - 2 sprays NA PRN PRN PRN Reason: Nasal Dryness/Congestion Stop: 06/08/24 13:45 Tramadol HCl (Tramadol Hcl 50 Mg Tablet) 50 mg PO Q6H PRN PRN Reason: moderate to severe pain Stop: 06/08/24 18:44 Last Admin: 05/18/24 07:12 Dose: 50 mg Trazodone HCl (Trazodone Hcl 100 Mg Tab) 200 mg PO HS [facility] Stop: 06/08/24 21:59 Last Admin: 05/21/24 21:13 Dose: 200 mg Vitamin D (Cholecalciferol 125 Mcg (5,000 Units) Tab) 125 mcg PO QAM [facility] Stop: 06/09/24 10:29 Last Admin: 05/21/24 08:51 Dose: 125 mcg Mental Health & Subst Abuse Tx Psychiatrist Name of Psychiatrist: Slava Carreon Psychiatrist's Date Of Appointment With Psychiatric Provider: 05/29/2024Tuesday Time of Appointment with Psychiatrist: 1500 Therapist Name of Therapist: [facility] ([place]) Therapist's Date of Therapist Appointment: 05/31/24 Time of Therapist Appointment: 11:00AM (Telehealth) Therapy Appointment Comment: Telehealth appointment Head Teacher Name of Head Teacher: Maggie @ [facility] Phone Number for Head Teacher: [phone] Post Discharge Appointments Primary Care Physician Name Of Family Doctor/PCP: Dr. Hough [facility] Date of Future Appointment with PCP: 05/30/24 Time of Appointment with PCP: 1pm
--- NOTE | 2024-05-23 08:47 | Psychiatric Progress Note ---
Date of Service May 23, 2024 Impression / Recommendations Impression 54-year-old female with history of schizoaffective disorder depressed type, TIA, osteoarthritis, hypertension, hyperlipidemia, alcohol abuse presents with a suicide attempt where she gradually took 50+ tablets of Tylenol and consumed alcohol in the context of hip pain status post surgery and familial conflict. Presentation concerning for schizoaffective disorder versus PTSD. Suicide attempt was impulsive the patient reported history of past attempts being in a similar fashion. Concern for depressed mood state. Patient would benefit for inpatient psychiatry admission for medication management and connection to outpatient counseling. Labs reviewed: TSH elevated; UA, CMP, and CBC within expected limits; Tylenol levels are trending downward. Some concern for hypothyroidism and we will draw free T4 level in addition to vitamin D and B12. Home medications were reviewed and adjustments made. Concern for sleep apnea and counseled patient on following up with PCP for sleep study. A: Mood slightly improved today, she is reporting some lessening of depression and hallucinations today. Feeling more hopeful and not as ambivalent about being alive. Tolerating Latuda well so far. MNPR due to hallucinations, hx of disrobing, increased irritability and poor hygiene Overall, I spent a total of 25 minutes on this case including meeting with the patient, reviewing the chart, nursing report, multidisciplinary team meeting, orders, and documentation. (1) Intentional acetaminophen overdose: (2) Schizoaffective disorder, depressive type: (3) Post traumatic stress disorder (PTSD): (4) Unspecified psychosis not due to a substance or known physiological condition: (5) Bilateral hip pain: (6) High serum thyroid stimulating hormone (TSH): (7) Thyroid nodule: (8) B12 deficiency: (9) Vitamin D deficiency disease: Plan 05/23/2024: Continue current medications and tx plan. 05/22/2024: Continue current medications and tx plan. 05/21/2024: Discontinue abilify. Start Latuda 40mg qdinner 05/20/2024: Continue current medications and tx plan. 05/19/2024: Decrease abilify to 2.5mg daily due to prominent hypotension 05/18/2024: Continue current medications and tx plan. 05/17/2024: Continue current medications and tx plan. 05/16/24: -Discontinue Invega -Start abilify 5mg qd 05/15/2024: Continue current medications and tx plan 05/14/2024: -Increase Invega to 1.5mg qAM and 3mg HS -Add miralax 05/13/2024: -Invega 1.5mg po BID -Colace-senna for constipation -Magnesium oxide 400mg BID 05/12/2024: EKG to assess QTc. Consider addition of Invega po. Fasting lipid panel and glucose in the AM. 05/11/2024: Consider adjusting dosing of Wellbutrin, will continue with current dosing for now. Start baby aspirin BID for one month (stop on 06/11/2024). 05/10/2024:The patient was admitted to the [facility] ([facility] mental [facility] unit) on q15 min checks (behavioral with suicide precautions) for safety. The patient will participate in group, recreational, and milieu therapies and will be offered additional individual and family sessions as clinically appropriate. -Draw labs: Free t4, Vit D, B12. Restart home psychiatric medications. O rthopedic consult for surgical radames removal. Voltaren gel TID for hip pain. Colace 100mg BID started. Administer international trauma questionnaire. Inventory Assets Strengths: outpatient connection, open to counseling Needs: family support, medication management Suicide Risk Level Suicide Risk Level: Moderate (q15 min suicide checks) (suicide attempt prior to admission and ongoing depression but SI starting to lessen, feeling more hopeful and feels safe in the hospital and feels able to ask for support) Risk Factors Assessment Male: No : Yes Do You Have Access To A Gun?: No Health Problems: Yes Mental Health Diagnoses: Yes Substance Use Disorders: Yes Previous Attempt: Yes Family History of Suicide: No Previous Psychiatric Hospitalization: Yes Hopelessness: No Protective Factors Assessment Protestant Beliefs: No : No Responsible for Young Children: No Employed: No Stable Relationships: No Supportive Family: No Good Rapport with Provider: Yes Absence of Any Risk Factors Above: No Interval History Identifying Information 54-year-old female with history of schizoaffective disorder depressed type, TIA, osteoarthritis, hypertension, hyperlipidemia, alcohol abuse presents with a suicide attempt where she gradually took 50+ tablets of Tylenol and consumed alcohol in the context of hip pain status post surgery and familial conflict. She was admitted on 05/09/24 17:33 on a 201 voluntary commitment. Chief Complaint "Alright". Review of Systems Sleep Information Total Hours of Sleep: 5.75 Meal Information Percent Meal Consumed - Breakfast: 100 Percent Meal Consumed - Lunch: 50 Percent Meal Consumed - Dinner: 60 Subjective Subjective Patient was seen & assessed and interval progress reviewed with treatment team nursing and social work. Declined some groups last evening. More irritable, spilled her medications last evening was upset about this. Refused calls from her son. Isolative to her room. Poor hygiene. Today reports her mood is "alright" and notes that the Latuda "it's helping my brain". Feels her "hallucinations and voices" (VH and AH) are lessening today. Less SI today. Contemplating calling [facility]. Physical Exam Psychiatric Orientation: alert and oriented x 3 Apperance: appropriately dressed Eye Contact: good eye contact Motor Behavior: no abnormal motor movements Speech: normal rate/rhythm/volume of speech Affect: + constricted affect Mood: + depressed mood; no anxious mood Thought Process: + concrete thought process Thought Content: reality based without delusions Suicidal Thoughts: denies suicidal thoughts (lessening but still ambivalent about surviving the attempt) and denies suicidal plan (but s/p attempt) Homicidal Thoughts: denies homicidal thoughts Hallucinations: + auditory hallucinations and + visual hallucinations Cognition: recent memory grossly intact, remote memory grossly intact, attention grossly intact and language grossly intact Insight: + limited insight Judgment: + limited judgement Vital Signs (Past 24 Hours) Last Vital Signs Temp 36.5 C 05/23/24 06:39 Pulse 79 05/23/24 06:40 Resp 16 05/23/24 06:39 BP 116/80 05/23/24 06:40 Pulse Ox 97 05/13/24 06:00 O2 Del Method Room Air 05/13/24 06:00 Results & Data ([facility]) Current Inpatient Medications Current Inpatient Medications: Current Inpatient Medications Al Hydrox/Mg Hydrox/Simethicone (Aluminum/Magnesium Susp 30 Ml Udc) 30 ml PO Q4H PRN PRN Reason: GI Upset Stop: 06/08/24 13:45 Aspirin (Aspirin 81 Mg Ectab) 81 mg PO BID [facility] Stop: 06/10/24 20:59 Last Admin: 05/22/24 21:16 Dose: 81 mg Atorvastatin Calcium (Atorvastatin 40 Mg Tab) 80 mg PO QPM [facility] Stop: 06/09/24 20:59 Last Admin: 05/22/24 21:17 Dose: 80 mg Bismuth Subsalicylate (Bismuth Subsalicylate Liqd 236 Ml) 15 ml PO PRN PRN PRN Reason: Loose Stool Stop: 06/08/24 13:45 Bupropion HCl (Bupropion Sr 150 Mg Tabcr) 300 mg PO [facility] Stop: 06/09/24 09:44 Last Admin: 05/22/24 08:41 Dose: 300 mg Clopidogrel Bisulfate (Clopidogrel Bisulfate 75 Mg Tab) 75 mg PO [facility] Stop: 06/09/24 09:44 Last Admin: 05/22/24 08:42 Dose: 75 mg Cyanocobalamin (Cyanocobalamin (B-12) 500 Mcg Tablet) 500 mcg PO [facility] Stop: 06/09/24 12:59 Last Admin: 05/22/24 08:42 Dose: 500 mcg Cyclobenzaprine HCl (Cyclobenzaprine Hcl 10 Mg Tab) 10 mg PO [facility] Stop: 06/09/24 21:59 Last Admin: 05/22/24 21:20 Dose: 10 mg Diclofenac Sodium (Diclofenac Sod 1% Gel 100 Gm Tube) 4 gm EXT TID [facility]; Protocol Stop: 06/09/24 13:59 Last Admin: 05/22/24 21:33 Dose: 4 gm Gabapentin (Gabapentin 800 Mg Tab) 800 mg PO TID [facility] Stop: 06/08/24 20:59 Last Admin: 05/22/24 21:18 Dose: 800 mg Hydroxyzine HCl (Hydroxyzine Hcl 25 Mg Tab) 50 mg PO HSZ PRN PRN Reason: Insomnia Stop: 06/08/24 13:45 Hydroxyzine HCl (Hydroxyzine Hcl 25 Mg Tab) 25 mg PO Q4H PRN PRN Reason: Anxiety Stop: 06/08/24 13:45 Lamotrigine (Lamotrigine 100 Mg Tab) 100 mg PO [facility]; Protocol Stop: 06/08/24 21:59 Last Admin: 05/22/24 21:21 Dose: 100 mg Lurasidone HCl (Lurasidone Hcl 20 Mg Tab) 40 mg PO DAILYBD [facility] Stop: 06/20/24 17:14 Last Admin: 05/22/24 17:17 Dose: 40 mg Magnesium Hydroxide (Magnesium Hydroxide Susp 30 Ml Udc) 30 ml PO DAILY PRN PRN Reason: Constipation Stop: 06/08/24 13:45 Last Admin: 05/14/24 08:33 Dose: 30 ml Magnesium Oxide (Magnesium Oxide 400 Mg Tab) 400 mg PO BID [facility] Stop: 06/12/24 12:29 Last Admin: 05/22/24 21:19 Dose: 400 mg Miscellaneous (Remove Nicoderm Patch) 1 each N/A DAILY@0859 [facility] Stop: 06/12/24 08:58 Last Admin: 05/22/24 08:44 Dose: 1 each Nicotine (Nicotine 7 Mg/24 Hr Tdsy) 1 patch TD QAM [facility] Stop: 06/11/24 10:29 Last Admin: 05/22/24 08:38 Dose: 1 patch Nitroglycerin (Nitroglycerin Sl 0.4 Mg/Tab Tab) 0.4 mg SL Q5M PRN PRN Reason: chest pain Ondansetron HCl (Ondansetron 4 Mg Od Tab) 4 mg PO Q8 PRN PRN Reason: nausea Stop: 06/09/24 09:40 Polyethylene Glycol (Polyethylene (Miralax) 17 Gm Pack) 17 gm PO DAILY [facility] Stop: 06/13/24 12:29 Last Admin: 05/22/24 08:44 Dose: 17 gm Senna/Docusate Sodium (Docusate Sodium/Senna 50/8.6mg Tab) 1 tab PO BID PRN PRN Reason: constipation Stop: 06/12/24 20:59 Sertraline HCl (Sertraline Hcl 100 Mg Tablet) 200 mg PO HS [facility] Stop: 06/08/24 21:59 Last Admin: 05/22/24 21:21 Dose: 200 mg Sodium Chloride (Sodium Chloride 0.65% Na Soln 45 Ml ([place])) 1 - 2 sprays NA PRN PRN PRN Reason: Nasal Dryness/Congestion Stop: 06/08/24 13:45 Tramadol HCl (Tramadol Hcl 50 Mg Tablet) 50 mg PO Q6H PRN PRN Reason: moderate to severe pain Stop: 06/08/24 18:44 Last Admin: 05/18/24 07:12 Dose: 50 mg Trazodone HCl (Trazodone Hcl 100 Mg Tab) 200 mg PO HS [facility] Stop: 06/08/24 21:59 Last Admin: 05/22/24 21:22 Dose: 200 mg Vitamin D (Cholecalciferol 125 Mcg (5,000 Units) Tab) 125 mcg PO QAM [facility] Stop: 06/09/24 10:29 Last Admin: 05/22/24 08:43 Dose: 125 mcg Mental Health & Subst Abuse Tx Psychiatrist Name of Psychiatrist: Slava Carreon Psychiatrist's Date Of Appointment With Psychiatric Provider: 05/29/2024Tuesday Time of Appointment with Psychiatrist: 1500 Therapist Name of Therapist: [facility] ([place]) Therapist's Date of Therapist Appointment: 05/31/24 Time of Therapist Appointment: 11:00AM (Telehealth) Therapy Appointment Comment: Telehealth appointment Embosser Operator Name of Embosser Operator: Maggie @ [facility] Phone Number for Embosser Operator: [phone] Post Discharge Appointments Primary Care Physician Name Of Family Doctor/PCP: Dr. Hough [facility] Date of Future Appointment with PCP: 05/30/24 Time of Appointment with PCP: 1pm
[2024-05-24 06:38] VITALS: RESP 18
--- NOTE | 2024-05-24 08:45 | Psychiatric Progress Note ---
Date of Service May 24, 2024 Impression / Recommendations Impression 54-year-old female with history of schizoaffective disorder depressed type, TIA, osteoarthritis, hypertension, hyperlipidemia, alcohol abuse presents with a suicide attempt where she gradually took 50+ tablets of Tylenol and consumed alcohol in the context of hip pain status post surgery and familial conflict. Presentation concerning for schizoaffective disorder versus PTSD. Suicide attempt was impulsive the patient reported history of past attempts being in a similar fashion. Concern for depressed mood state. Patient would benefit for inpatient psychiatry admission for medication management and connection to outpatient counseling. Labs reviewed: TSH elevated; UA, CMP, and CBC within expected limits; Tylenol levels are trending downward. Some concern for hypothyroidism and we will draw free T4 level in addition to vitamin D and B12. Home medications were reviewed and adjustments made. Concern for sleep apnea and counseled patient on following up with PCP for sleep study. A: Mood continuing to improve, today keeping her lights on and wanting the room to her door open for the first time, both good signs in addition to her brightening affect. Less isolated and engaging more with peers. Finding Latuda helpful for her mood and she feels it is helping to significantly reduce hallucinations without any side effects. She would like to titrate it further in effort to potential fully eliminate or further lessen hallucinations. MNPR due to hallucinations, hx of disrobing Overall, I spent a total of 25 minutes on this case including meeting with the patient, reviewing the chart, nursing report, multidisciplinary team meeting, orders, and documentation. (1) Intentional acetaminophen overdose: (2) Schizoaffective disorder, depressive type: (3) Post traumatic stress disorder (PTSD): (4) Unspecified psychosis not due to a substance or known physiological condition: (5) Bilateral hip pain: (6) High serum thyroid stimulating hormone (TSH): (7) Thyroid nodule: (8) B12 deficiency: (9) Vitamin D deficiency disease: Plan 05/24/2024: Increase Latuda to 60mg qdinner 05/23/2024: Continue current medications and tx plan. 05/22/2024: Continue current medications and tx plan. 05/21/2024: Discontinue abilify. Start Latuda 40mg qdinner 05/20/2024: Continue current medications and tx plan. 05/19/2024: Decrease abilify to 2.5mg daily due to prominent hypotension 05/18/2024: Continue current medications and tx plan. 05/17/2024: Continue current medications and tx plan. 05/16/24: -Discontinue Invega -Start abilify 5mg qd 05/15/2024: Continue current medications and tx plan 05/14/2024: -Increase Invega to 1.5mg qAM and 3mg HS -Add miralax 05/13/2024: -Invega 1.5mg po BID -Colace-senna for constipation -Magnesium oxide 400mg BID 05/12/2024: EKG to assess QTc. Consider addition of Invega po. Fasting lipid panel and glucose in the AM. 05/11/2024: Consider adjusting dosing of Wellbutrin, will continue with current dosing for now. Start baby aspirin BID for one month (stop on 06/11/2024). 05/10/2024:The patient was admitted to the [facility] ([facility] health unit) on q15 min checks (behavioral with suicide precautions) for safety. The patient will participate in group, recreational, and milieu therapies and will be offered additional individual and family sessions as clinically appropriate. -Draw labs: Free t4, Vit D, B12. Restart home psychiatric medications. Orthopedic consult for surgical radames removal. Voltaren gel TID for hip pain. Colace 100mg BID started. Administer international trauma questionnaire. Inventory Assets Strengths: outpatient connection, open to counseling Needs: family support, medication management Suicide Risk Level Suicide Risk Level: Moderate (q15 min suicide checks) (suicide attempt prior to admission and ongoing depression but SI starting to lessen, feeling more hopeful and feels safe in the hospital and feels able to ask for support) Risk Factors Assessment Male: No : Yes Do You Have Access To A Gun?: No Health Problems: Yes Mental Health Diagnoses: Yes Substance Use Disorders: Yes Previous Attempt: Yes Family History of Suicide: No Previous Psychiatric Hospitalization: Yes Hopelessness: No Protective Factors Assessment Hinduism Beliefs: No : No Responsible for Young Children: No Employed: No Stable Relationships: No Supportive Family: No Good Rapport with Provider: Yes Absence of Any Risk Factors Above: No Interval History Identifying Information 54-year-old female with history of schizoaffective disorder depressed type, TIA, osteoarthritis, hypertension, hyperlipidemia, alcohol abuse presents with a suicide attempt where she gradually took 50+ tablets of Tylenol and consumed alcohol in the context of hip pain status post surgery and familial conflict. She was admitted on 05/09/24 17:33 on a 201 voluntary commitment. Chief Complaint "Ok". Review of Systems Sleep Information Total Hours of Sleep: 7 Sleep Comments: HS Trazadone Meal Information Percent Meal Consumed - Breakfast: 100 Percent Meal Consumed - Lunch: 50 Percent Meal Consumed - Dinner: 100 Subjective Subjective Patient was seen & assessed and interval progress reviewed with treatment team nursing and social work. Reported to staff last evening that the voices are telling her not to call [facility]. Last night reported feeling tired. Today reports her mood is "ok". Denies any side effects from Latuda. Wonders if we can make it "stronger" because she is noticing a big reduction in hallucinations "not as much, almost away" but she's hoping higher dose may get rid of them completely. Reports improvement in mood due to hallucinations lessening. Denies SI today. Feeling safer about idea of returning home. Today has the lights on in her room for the first time (usually she sits in the dark if in her room) and asks to have her door opened instead of remaining closed. Physical Exam Psychiatric Orientation: alert and oriented x 3 Apperance: appropriately dressed Eye Contact: good eye contact Motor Behavior: no abnormal motor movements Speech: normal rate/rhythm/volume of speech Affect: + constricted affect (brighter today with a few smiles) Mood: + depressed mood; no anxious mood Thought Process: + concrete thought process Thought Content: reality based without delusions Suicidal Thoughts: denies suicidal thoughts (reports she is glad to be alive) and denies suicidal plan Homicidal Thoughts: denies homicidal thoughts Hallucinations: + auditory hallucinations (lessening) and + visual hallucinations (lessening, can reality-test these) Cognition: recent memory grossly intact, remote memory grossly intact, attention grossly intact and language grossly intact Insight: + fair insight Judgment: + fair judgement Vital Signs (Past 24 Hours) Last Vital Signs Temp 36.4 C L 05/24/24 06:34 Pulse 76 05/24/24 06:35 Resp 18 05/24/24 06:34 BP 122/82 05/24/24 06:35 Pulse Ox 97 05/13/24 06:00 O2 Del Method Room Air 05/13/24 06:00 Results & Data ([facility]) Current Inpatient Medications Current Inpatient Medications: Current Inpatient Medications Al Hydrox/Mg Hydrox/Simethicone (Aluminum/Magnesium Susp 30 Ml Udc) 30 ml PO Q4H PRN PRN Reason: GI Upset Stop: 06/08/24 13:45 Aspirin (Aspirin 81 Mg Ectab) 81 mg PO BID [facility] Stop: 06/10/24 20:59 Last Admin: 05/23/24 21:16 Dose: 81 mg Atorvastatin Calcium (Atorvastatin 40 Mg Tab) 80 mg PO QPM [facility] Stop: 06/09/24 20:59 Last Admin: 05/23/24 21:15 Dose: 80 mg Bismuth Subsalicylate (Bismuth Subsalicylate Liqd 236 Ml) 15 ml PO PRN PRN PRN Reason: Loose Stool Stop: 06/08/24 13:45 Bupropion HCl (Bupropion Sr 150 Mg Tabcr) 300 mg PO QAM [facility] Stop: 06/09/24 09:44 Last Admin: 05/23/24 08:55 Dose: 300 mg Clopidogrel Bisulfate (Clopidogrel Bisulfate 75 Mg Tab) 75 mg PO QAM [facility] Stop: 06/09/24 09:44 Last Admin: 05/23/24 08:55 Dose: 75 mg Cyanocobalamin (Cyanocobalamin (B-12) 500 Mcg Tablet) 500 mcg PO QAM [facility] Stop: 06/09/24 12:59 Last Admin: 05/23/24 08:55 Dose: 500 mcg Cyclobenzaprine HCl (Cyclobenzaprine Hcl 10 Mg Tab) 10 mg PO HS [facility] Stop: 06/09/24 21:59 Last Admin: 05/23/24 21:16 Dose: 10 mg Diclofenac Sodium (Diclofenac Sod 1% Gel 100 Gm Tube) 4 gm EXT TID [facility]; Protocol Stop: 06/09/24 13:59 Last Admin: 05/23/24 21:22 Dose: Not Given Gabapentin (Gabapentin 800 Mg Tab) 800 mg PO TID [facility] Stop: 06/08/24 20:59 Last Admin: 05/23/24 21:15 Dose: 800 mg Hydroxyzine HCl (Hydroxyzine Hcl 25 Mg Tab) 50 mg PO HSZ PRN PRN Reason: Insomnia Stop: 06/08/24 13:45 Hydroxyzine HCl (Hydroxyzine Hcl 25 Mg Tab) 25 mg PO Q4H PRN PRN Reason: Anxiety Stop: 06/08/24 13:45 Lamotrigine (Lamotrigine 100 Mg Tab) 100 mg PO HS [facility]; Protocol Stop: 06/08/24 21:59 Last Admin: 05/23/24 21:16 Dose: 100 mg Lurasidone HCl (Lurasidone Hcl 20 Mg Tab) 40 mg PO DAILYBD [facility] Stop: 06/20/24 17:14 Last Admin: 05/23/24 17:13 Dose: 40 mg Magnesium Hydroxide (Magnesium Hydroxide Susp 30 Ml Udc) 30 ml PO DAILY PRN PRN Reason: Constipation Stop: 06/08/24 13:45 Last Admin: 05/14/24 08:33 Dose: 30 ml Magnesium Oxide (Magnesium Oxide 400 Mg Tab) 400 mg PO BID [facility] Stop: 06/12/24 12:29 Last Admin: 05/23/24 21:16 Dose: 400 mg Miscellaneous (Remove Nicoderm Patch) 1 each N/A DAILY@0859 [facility] Stop: 06/12/24 08:58 Last Admin: 05/23/24 08:55 Dose: 1 each Nicotine (Nicotine 7 Mg/24 Hr Tdsy) 1 patch TD QAM [facility] Stop: 06/11/24 10:29 Last Admin: 05/23/24 08:53 Dose: 1 patch Nitroglycerin (Nitroglycerin Sl 0.4 Mg/Tab Tab) 0.4 mg SL Q5M PRN PRN Reason: chest pain Ondansetron HCl (Ondansetron 4 Mg Od Tab) 4 mg PO Q8 PRN PRN Reason: nausea Stop: 06/09/24 09:40 Polyethylene Glycol (Polyethylene (Miralax) 17 Gm Pack) 17 gm PO DAILY [facility] Stop: 06/13/24 12:29 Last Admin: 05/23/24 09:01 Dose: 17 gm Senna/Docusate Sodium (Docusate Sodium/Senna 50/8.6mg Tab) 1 tab PO BID PRN PRN Reason: constipation Stop: 06/12/24 20:59 Sertraline HCl (Sertraline Hcl 100 Mg Tablet) 200 mg PO [facility] Stop: 06/08/24 21:59 Last Admin: 05/23/24 21:15 Dose: 200 mg Sodium Chloride (Sodium Chloride 0.65% Na Soln 45 Ml ([place])) 1 - 2 sprays NA PRN PRN PRN Reason: Nasal Dryness/Congestion Stop: 06/08/24 13:45 Tramadol HCl (Tramadol Hcl 50 Mg Tablet) 50 mg PO Q6H PRN PRN Reason: moderate to severe pain Stop: 06/08/24 18:44 Last Admin: 05/18/24 07:12 Dose: 50 mg Trazodone HCl (Trazodone Hcl 100 Mg Tab) 200 mg PO HS [facility] Stop: 06/08/24 21:59 Last Admin: 05/23/24 21:15 Dose: 200 mg Vitamin D (Cholecalciferol 125 Mcg (5,000 Units) Tab) 125 mcg PO QAM [facility] Stop: 06/09/24 10:29 Last Admin: 05/23/24 08:55 Dose: 125 mcg Mental Health & Subst Abuse Tx Psychiatrist Name of Psychiatrist: Slava Carreon Psychiatrist's Date Of Appointment With Psychiatric Provider: 05/29/2024Tuesday Time of Appointment with Psychiatrist: 1500 Therapist Name of Therapist: [facility] ([place] Therapist's Date of Therapist Appointment: 05/31/24 Time of Therapist Appointment: 11:00AM (Telehealth) Therapy Appointment Comment: Telehealth appointment [employer] 5 Teacher Name of Gr[employer] 1 [employer] 5 Teacher: Maggie @ [facility] Phone Number for Gr[employer] 1 [employer] 5 Teacher: [phone] Post Discharge Appointments Primary Care Physician Name Of Family Doctor/PCP: Dr. Hough [facility] Date of Future Appointment with PCP: 05/30/24 Time of Appointment with PCP: 1pm
[2024-05-24] MEDS: LURASIDONE HCL 20 MG TAB PO SCH (17:52)
[2024-05-25 06:36] VITALS: TEMP 97.9
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
[2024-05-25 10:49] VITALS: BP 133/83; PULSE 74
== END 2024-05-25 11:10 | disposition home or self-care (01) | DRG 885 ==
LOC: 3S 17:33 → SUATTDRO 17:33

== ENCOUNTER 2025-07-31 10:01 | Observation (INO) ==
--- NOTE | 2025-07-31 10:45 | Emergency Department Note ---
Impression & Plan Leg wound, left, Cellulitis ED Provider Note CHIEF COMPLAINT: Infected leg HISTORY OF PRESENTING ILLNESS: The patient is a 55-year-old female with a PMH CAD, alcohol abuse, TIA, hyperlipidemia, GERD, anxiety and depression, schizoaffective, HTN, back pain, PTSD who presents to the emergency department due to concern for an infection on her left lower leg. She was evaluated here 2 months ago when she initially injured the leg. She states that she was crossing over railroad tracks when she fell and scraped her leg. She was sent home on oral antibiotics which initially helped her symptoms but is now noticing worsening swelling and pain. She has felt as if she has a fever but has not taken her temperature. She also reports nausea and vomiting. She is not currently on antibiotics. She denies purulent drainage from the area as well as pain extending up or down the leg. REVIEW OF SYSTEMS: See HPI for pertinent positives and pertinent negatives. ALLERGIES: NKDA MEDICATIONS: See below PAST MEDICAL HISTORY: See below PHYSICAL EXAM: VITALS: Vitals are noted on the nurses note and reviewed by myself. Vital signs stable. GENERAL: 55-year-old female, in no acute distress, nondiaphoretic, well- developed well-nourished. SKIN: There is a 2 cm superficial laceration like wound on the left velazquez from a fall 2 weeks ago. There mild is surrounding erythema. Mild serous drainage on bandage when removed. Significant amount of edema appreciated laterally to the wound. The area is tender to touch and warm, however is not necrotic or erythematous. HEENT: Normocephalic. PERRLA. EOMI. Nares patent. Mucous membranes moist. Neck is supple without nuchal rigidity. MUSCULOSKELETAL: No gross musculoskeletal defects. FROM left lower extremity. 2+ dorsal pedis pulse palpated. No pedal edema. No calf tenderness. NEURO: Patient was alert and oriented to person place and time. Normal sensation on exam. No focal neurological deficits. DIFFERENTIAL DIAGNOSIS: Cellulitis, abscess, sepsis, osteomyelitis, wound dehiscence, ED COURSE AND MEDICAL DECISION MAKING: HISTORY FROM INDEPENDENT HISTORIAN: Patient herself. MEDICATIONS GIVEN: 1 L normal saline, 2 g Rocephin, 1 L normal saline INTERPRETATION OF LABS: I interpreted the labs with full lab results as below in the lab section of this note. Pertinent lab results discussed in the MDM section below. INTERPRETATION OF IMAGING: Imaging studies were interpreted by myself and read by radiology as per the imaging section of this note. X-ray left tib-fib - No fracture or dislocation. No gas visualized soft tissue. CT tib/fib - Anterior subcutaneous fluid collection measuring 7 x 8.5 x 1 cm. There is a small overlying cutaneous defect. No gas bubbles. No underlying bone destruction changes. Likely posttraumatic. CONSULTATIONS: On-call [facility] hospitalist - Presented the patient to the provider. Discussed worsening symptoms after course of oral antibiotics. Initial lactate elevated 3.7. It did improve to 3.5 with 1 L. I asked them to evaluate the patient for admission to medicine for IV antibiotics and further management. They agreed to do so. MDM SUMMARY: I evaluated the 55-year-old female who presents to the ER due to concern for infection on her left lower leg. She obtained a wound 2 weeks ago falling while walking [place] railroad tracks. See HPI and PE above. Patient is hypertensive. She does report not taking her blood pressure medication this morning. All other vital stable. 2 g Rocephin given. No leukocytosis. Hemodynamically stable. No electrolyte abnormality. No VANESA. Lactate elevated 3.7. 1 L normal saline given. Procalcitonin < 0.02. X-ray shows no abnormality. CT shows anterior subcutaneous fluid collection. This is noted to be likely posttraumatic. Repeat lactate 3.5. An additional 1 L normal saline was given. A consultation with the on-call hospitalist can be seen in detail above. They agreed to evaluating the patient and admitting her to medicine for IV antibiotic and further management. Patient is agreeable to admission and all questions answered. Patient was admitted in stable condition. DIAGNOSIS: Left leg wound, cellulitis The chart was completed utilizing [employer] voice recognition software. Grammatical errors, random word insertions, pronoun errors, and incomplete sentences are an occasional consequence of this system due to software limitations, ambient noise, and hardware issues. Any formal questions or concerns about the content, text, or information contained within the body of this dictation should be directly addressed to the provider for clarification Past Med/Surg History Problem List Lactic acidosis Abnormal LFTs Hematoma of leg Cellulitis (Acute) Leg wound, left (Acute) Post traumatic stress disorder (PTSD) Acetaminophen toxicity Depression (Acute) Alcohol abuse (Acute) Suicide attempt by acetaminophen overdose (Acute) S/P total left hip arthroplasty Left hip pain Low back pain Vitamin B12 deficiency Spinal stenosis, lumbar region with neurogenic claudication Lumbar radiculopathy Chronic pain Polysubstance (excluding opioids) dependence Abnormal brain MRI (Acute) Nicotine dependence (Acute) Hypertension (Chronic) Prolonged QT interval (Chronic) Schizoaffective disorder (Chronic) Anxiety and depression (Chronic) GERD (gastroesophageal reflux disease) Hyperlipidemia LDL goal <70 (Chronic) TIA (transient ischemic attack) (Chronic) 2016 Alcohol abuse (Chronic) Coronary artery disease, occlusive (Chronic 03/31/14) s/p stents 2016 Medical History IUD contraception (06/2017) reviewed chart - insertion 07/04/2017, Mirena, removed 04/2025 Intentional acetaminophen overdose High serum thyroid stimulating hormone (TSH) Bilateral hip pain Vitamin D deficiency disease Thyroid nodule B12 deficiency 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 of left hip 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 Thyroid nodule had followed with ENT in the past Low back pain Hypertension Hyperlipidemia Hx of gastroesophageal reflux (GERD) well controlled and stable gets occ reflux- no medications at this time Chronic pain Anxiety and depression Depression with suicidal ideation hx Auditory hallucinations chronic history- no hallucinations re: hurting others or self chronic and stable - follows with psych- feels controlled per patient TIA (transient ischemic attack) ~ Most recent 2018, no residual effects Also hx of TIAs 2010, 2011, 2014 per records Schizoaffective disorder, depressive type hx Medical non-compliance hx STEMI (ST elevation myocardial infarction) ~2013, cardiac cath w/2 stents placed, [facility] follows only with PCP Surgical History Hx of cardiac cath ~2015, [facility], x2 stents; does not f/u cardio anymore. H/O heart artery stent ~2015, [facility], x2 stents; does not f/u cardio anymore. Family History Mother Diabetes Father , age 70 of pancreatic cancer. Heart disease Hypertension Diabetes Pancreatic cancer Prostate cancer Grandmother (Maternal) Breast cancer Other Cancer Denies family history of Ovarian cancer Colorectal cancer Social History (Reviewed 08/01/25 @ 08:33 by TORIBIO Tolliver Smoking Status: Current every day smoker Tobacco Type: Cigarettes Cigarettes Per Day: 1/2 pack day; Second Hand Exposure: No; Do You Dip or Chew Tobacco: No; Hx Alcohol Use: Yes Alcohol type: beer Alcohol Intake Frequency Comment: Three 32 ounce cans of Monae Light beer per day Hx Substance Use: Yes Non-Prescribed Medications: Marijuana Last Used Substance: Days (ago) Last Used Substance Other:: 1 week ago Substance Use Type Other:: states " i just got off of street drugs, but rather not say which ones" Preferred Language: Dutch Communication Ability: Effective Visual Impairment: No Limitations Hearing Ability: Normal Human Resources Vice President Required: No Beliefs That Will Affect Care: None marital status: Single Current Living Situation: Alone current occupational status: previously employed current occupation: 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 Feels Safe at Home: Yes Safety Concerns: Feels Safe At This Time Gender Identity: Female Assistive Devices: None Allergies Allergies Allergy/AdvReac Type Severity Reaction Status Date / Time No Known Allergies Allergy Verified 06/18/25 16:07 Home Meds Home Medications Medication Instructions Recorded Confirmed trazodone 100 mg tablet 200 mg PO HS 10/06/23 07/31/25 paliperidone palm (6 month) 1,560 1,560 mg IM UD 03/26/24 07/31/25 mg/5 mL intramuscular syringe (Duranega Danny) Wheeled Walker 05/09/24 06/18/25 gabapentin 800 mg tablet 800 mg PO TID 05/09/24 07/31/25 (Neurontin) lamotrigine 100 mg tablet 100 mg PO HS 05/09/24 07/31/25 naltrexone microspheres 380 mg 380 mg IM MONTHLY 05/09/24 07/31/25 intramuscular suspension,extended release (Vivitrol) nitroglycerin 0.3 mg sublingual 0.3 mg sublingual Q5M PRN chest 05/09/24 07/31/25 tablet (Nitrostat) pain sertraline 100 mg tablet 200 mg PO HS 05/09/24 07/31/25 hydroxyzine HCl 50 mg tablet 50 mg PO HS PRN Sleep 07/31/25 07/31/25 lurasidone 80 mg tablet 80 mg PO DAILY 07/31/25 07/31/25 naltrexone 50 mg tablet 50 mg PO UD 07/31/25 07/31/25 Previous Rx's Medication Instructions Recorded atorvastatin 80 mg tablet (Lipitor) 80 mg PO QPM #90 tabs 12/15/21 clopidogrel 75 mg tablet (Plavix) 75 mg PO QAM #90 tabs 05/20/22 benztropine 0.5 mg tablet 0.5 mg PO DAILY PRN muscle 05/25/24 stiffness #0 tabs cyclobenzaprine 10 mg tablet 10 mg PO HS #30 tabs 12/27/24 Results & Data (ED) Vital Signs Vital Signs - 24 hr 07/31/25 10:36 07/31/25 11:28 07/31/25 11:55 Temperature 36.6 C Temperature Source Oral Pulse Rate 89 72 Pulse Rate [Apical] 79 Pulse Rhythm [Apical] Regular Pulse Strength [Apical] Normal Respiratory Rate 16 23 Respiratory Effort / Characteristics Non-Labored Non-Labored Spontaneous Respiratory Depth Normal Normal Respiratory Pattern Regular Regular Blood Pressure 112/78 Blood Pressure [Right Arm] 157/104 H Blood Pressure Mean 89 Blood Pressure Mean [Right Arm] 121 Blood Pressure Position [Right Arm] Lying Pulse Oximetry 96 95 Oxygen Delivery Method Room Air Room Air Sepsis Recent Fever Within 48 Hours No Sepsis New/Unexplained Change in Mental Status N/A Sepsis Action Taken by Nursing No Action Required 07/31/25 13:18 07/31/25 15:41 07/31/25 16:04 Temperature Temperature Source Pulse Rate 90 Pulse Rate [Apical] 75 88 Pulse Rhythm [Apical] Regular Regular Pulse Strength [Apical] Normal Normal Respiratory Rate 18 24 Respiratory Effort / Characteristics Non-Labored Spontaneous Non-Labored Spontaneous Respiratory Depth Normal Normal Respiratory Pattern Regular Regular Blood Pressure Blood Pressure [Right Arm] 160/102 H 165/106 H Blood Pressure Mean Blood Pressure Mean [Right Arm] 121 125 Blood Pressure Position [Right Arm] Lying Lying Pulse Oximetry 97 99 Oxygen Delivery Method Room Air Room Air Sepsis Recent Fever Within 48 Hours Sepsis New/Unexplained Change in Mental Status Sepsis Action Taken by Nursing Laboratory Data 08/01/25 05:37 08/01/25 05:37 Lab Results 07/31/25 07/31/25 07/31/25 Range/Units 11:18 11:44 13:05 WBC 4.58 L (4.8-10.8) K/ul RBC 4.80 (4.20-5.40) M/uL Hgb 14.8 (12.0-16.0) g/dl Hct 43.1 (37.0-47.0) % MCV 89.8 (80.0-100.0) fL MCH 30.8 (25.0-34.0) pg MCHC 34.3 (32.0-36.0) g/dL RDW Std Deviation 56.6 H (36.4-46.3) fL RDW Coeff of Brooke 17.9 H (11.5-14.5) % Plt Count 153 (130-400) K/uL MPV 9.6 (9.4-12.4) fL Immature Gran % (Auto) 0.4 % Neut % (Auto) 46.0 % Lymph % (Auto) 43.2 % [place] % (Auto) 7.4 % Eos % (Auto) 1.7 % Baso % (Auto) 1.3 % Neut # (Auto) 2.10 (1.40-6.50) K/uL Lymph # (Auto) 1.98 (1.20-3.40) K/uL [place] # (Auto) 0.34 (0.11-0.59) K/uL Eos # (Auto) 0.08 (0.00-0.50) K/uL Baso # (Auto) 0.06 (0.00-0.20) K/uL Immature Gran # (Auto) 0.02 (0.01-0.20) K/uL ESR 3 (0-30) mm/hr Sodium 143 (136-145) mmol/L Potassium 3.8 (3.5-5.1) mmol/L Chloride 105 (98-107) mmol/L Carbon Dioxide 28 (21-32) mmol/L Anion Gap 10 (3-11) BUN 8 (6-23) mg/dl Creatinine 0.62 (0.6-1.2) mg/dl Est Cr Clr Drug Dosing 117.9 ml/min eGFR 105.10 BUN/Creatinine Ratio 12.9 (10-20) Glucose 97 (70-99(Fasting)) mg/dl Lactate 3.7 H* 3.5 H* (0.4-2.0) mmol/L Calcium 8.5 L (8.6-10.3) mg/dl Total Bilirubin 0.7 (0.2-1.0) mg/dl AST 169 H (13-39) U/L ALT 66 H (7-52) U/L Alkaline Phosphatase 154 H (34-104) U/L C-Reactive Protein < 0.50 (0-0.5) mg/dl Total Protein 6.4 (6.0-8.3) gm/dl Albumin 3.3 L (3.4-5.0) gm/dl Globulin 3.1 (2.5-4.0) gm/dl Albumin/Globulin Ratio 1.1 (0.9-2) Procalcitonin < 0.02 (0-0.5) ng/ml Urine Color Institute Urine Appearance Clear (Clear) Urine pH 5.5 (4.5-7.5) Ur Specific [place] 1.025 (1.000-1.030) Urine Protein Negative (Negative) Urine Glucose (UA) Negative (Negative) Urine Ketones Trace H (Negative) Urine Blood Trace H (Negative) Urine Nitrite Negative (Negative) Urine Bilirubin Negative (Negative) Urine Urobilinogen Negative (Negative) Ur Leukocyte Esterase Trace H (Negative) Urine WBC (Auto) 0-5 (0-5) /hpf Urine RBC (Auto) 0-2 (0-2) /hpf U Hyaline Cast (Auto) 0-2 (0-2) /lpf U Epithel Cells (Auto) 6-10 H (0-2) /hpf Urine Bacteria (Auto) None Seen (None Seen) Urine Mucus Present A (None Prsent) Urine Comment Administered Medications Atorvastatin Calcium (Atorvastatin 40 Mg Tab) 80 mg PO QPM NILSON Stop: 08/30/25 20:59 Last Admin: 07/31/25 20:33 Dose: 80 mg Documented By: NAW Cyclobenzaprine HCl (Cyclobenzaprine Hcl 10 Mg Tab) 10 mg PO HS NILSON Stop: 08/30/25 20:59 Last Admin: 07/31/25 20:33 Dose: 10 mg Documented By: NAW Gabapentin (Gabapentin 800 Mg Tab) 800 mg PO TID NILSON Stop: 08/30/25 20:59 Last Admin: 07/31/25 20:32 Dose: 800 mg Documented By: NAW Vancomycin HCl 1,500 mg/ (Sodium Chloride) 530 mls @ 200 mls/hr IV Q12H NILSON Stop: 08/08/25 03:59 Last Admin: 08/01/25 04:01 Dose: 200 mls/hr Documented By: benedict Lamotrigine (Lamotrigine 100 Mg Tab) 100 mg PO [facility]; Protocol Stop: 08/30/25 20:59 Last Admin: 07/31/25 20:33 Dose: 100 mg Documented By: MIYA Nicotine (Nicotine 14 Mg/24 Hr Patch) 1 patch TD [facility] Stop: 08/30/25 18:40 Last Admin: 07/31/25 19:14 Dose: 1 patch Documented By: MIYA Sertraline HCl (Sertraline Hcl 100 Mg Tablet) 200 mg PO [facility] Stop: 08/30/25 20:59 Last Admin: 07/31/25 20:34 Dose: 200 mg Documented By: MIYA Trazodone HCl (Trazodone Hcl 100 Mg Tab) 200 mg PO [facility] Stop: 08/30/25 20:59 Last Admin: 07/31/25 20:32 Dose: 200 mg Documented By: MIYA Discontinued Medications Sodium Chloride (Nss) 1,000 mls @ 999 mls/hr IV .Q1H1M ONE Stop: 07/31/25 12:58 Last Infusion: 07/31/25 13:37 Dose: Infused Documented By: Admin: 07/31/25 12:09 Dose: 999 mls/hr Documented By: CRISSY Ceftriaxone Sodium (Rocephin) 2,000 mg in 50 mls @ 100 mls/hr IV NOW STA Stop: 07/31/25 12:35 Last Infusion: 07/31/25 13:37 Dose: Infused Documented By: Admin: 07/31/25 13:01 Dose: 100 mls/hr Documented By: CRISSY Sodium Chloride (Nss) 1,000 mls @ 999 mls/hr IV .Q1H1M ONE Stop: 07/31/25 16:01 Last Infusion: 07/31/25 17:02 Dose: Infused Documented By: Admin: 07/31/25 15:12 Dose: 999 mls/hr Documented By: CRISSY Vancomycin HCl 2,000 mg/ (Sodium Chloride) 540 mls @ 200 mls/hr IV NOW ONE Stop: 07/31/25 19:11 Last Infusion: 07/31/25 21:11 Dose: Infused Documented By: Admin: 07/31/25 17:27 Dose: 200 mls/hr Documented By: CRISSY Ioversol (Optiray 320 100ml) 94 ml IV ONCE ONE Stop: 07/31/25 12:48 Last Admin: 07/31/25 12:47 Dose: 94 ml Documented By: MAYTE Ketorolac Tromethamine (Ketorolac 30 Mg/Ml Vial) 30 mg IV Q6H NILSON Stop: 08/01/25 06:42 Last Admin: 08/01/25 05:43 Dose: 30 mg Documented By: asg Admin: 08/01/25 00:40 Dose: 30 mg Documented By: asmar Admin: 07/31/25 19:14 Dose: 30 mg Documented By: MIYA Imaging Data Radiologist's Impression: Tibia/Fibula X-Ray 07/31/25 11:11 XR tibia fibula LT 2V CLINICAL HISTORY: wound, swelling COMPARISON: 07/10/2025 FINDINGS: No fractures are visualized. There are no erosive or destructive changes. No gas is visualized within the soft tissues. There is a small soft tissue calcification within the anterior subcutaneous tissues at the mid tibial level. IMPRESSION: 1. No evidence of fracture 2. No conventional radiographic evidence of osteomyelitis. No gas is visualized within the soft tissues. ACT 112: Negative or not required by law. Electronically signed by: Matty Austin M.D. 07/31/2025 12:[address] 07/31/25 12:26 CT tib/fib LT w con CLINICAL HISTORY: wound, swelling fever. Persistent swelling despite being on antibiotics. Evaluate for abscess/osteomyelitis. COMPARISON STUDY: X-ray study dated 07/31/2025 FINDINGS: Helical images were acquired in a dynamic helical fashion during intravenous administration of 94 cc of Optiray 320. Multiplane are reformatted images were acquired. Within the proximal lower leg abutting the anterior fascial margin of the tibialis anterior as well as the anterior cortex of the tibia there is a curvilinear fluid collection measuring 7 cm transversely, 1 cm in AP diameter, and extending over a craniocaudal distance of 8.5 cm. There is an overlying small anterior skin defect. There are no gas bubbles within this collection. There is mild overlying skin edema. No cortical destructive lesions are visualized within the underlying tibia. There are no acute fractures. IMPRESSION: 1. Anterior subcutaneous fluid collection within the upper aspect of the lower leg measuring 7 x 8.5 x 1 cm. There is overlying cutaneous edema and there is a small overlying cutaneous defect. There are no gas bubbles within this collection. There are no underlying bony destructive changes. Given the history of prior trauma this collection is likely posttraumatic. It is not possible to determine whether it is infected. ACT 112: Negative or not required by law. Electronically signed by: Matty Austin M.D. 07/31/2025 1:08 PM Discharge Plan Visit Data Chief Complaint: Infection Stated Complaint: INFECTED LEG ED Provider: Amy Moran ED Midlevel Provider: Leia Johnson Discharge Problem: Leg wound, left, Cellulitis Patient Disposition: Admitted As Inpatient Condition: Good Discharge Instructions Interventions: ED Discharge Assessment Last Done: 07/31/25 18:42 Discharge Problem: Leg wound, left Qualifiers: Encounter type: initial encounter Qualified Code(s): S81.802A - Unspecified open wound, left lower leg, initial encounter Cellulitis Qualifiers: Site of cellulitis: extremity Site of cellulitis of extremity: lower extremity Laterality: left Qualified Code(s): L03.116 - Cellulitis of left lower limb
[2025-07-31 11:51] LABS: Hematocrit (blood only) 43.1 % (37.0-47.0); Hemoglobin 14.8 g/dl (12.0-16.0); Immature Granulocytes # (auto) 0.02 K/uL (0.01-0.20); Immature Granulocytes % (auto) 0.4 %; Mean Corpuscular Hemoglobin 30.8 pg (25.0-34.0); Mean Corpuscular Volume 89.8 fL (80.0-100.0); Platelet Count 153 K/uL (130-400); RDW Standard Deviation 56.6 fL (36.4-46.3); Red Blood Count 4.80 M/uL (4.20-5.40); White Blood Count 4.58 K/ul (4.8-10.8)
--- NOTE | 2025-07-31 12:03 | XRay Report ---
XR tibia fibula LT 2V CLINICAL HISTORY: wound, swelling COMPARISON: 07/10/2025 FINDINGS: No fractures are visualized. There are no erosive or destructive changes. No gas is visual ized within the soft tissues. There is a small soft tissue calcification within the anterior subcutan eous tissues at the mid tibial level. IMPRESSION: 1. No evidence of fracture 2. No conventional radiographic evidence of osteomyelitis. No gas is visualized within the soft tissu es. ACT 112: Negative or not required by law. Electronically signed by: Matty Austin M.D. 07/31/2025 12:02 PM
[2025-07-31 12:07] LABS: Appearance Urine Clear (Clear); Bacteria Urine Automated None Seen (None Seen); Cast Urine Automated 0-2 /lpf (0-2); Glucose Urine UA Negative (Negative); RBC Urine Automated 0-2 /hpf (0-2); WBC Urine Automated 0-5 /hpf (0-5)
[2025-07-31] MEDS: SODIUM CHLORIDE 0.9% 1,000 ML IV ONE ×2 (12:09→15:12)
[2025-07-31 12:21] LABS: Alanine Aminotransferase 66 U/L (7-52); Albumin Globulin Ratio 1.1 (0.9-2); Albumin Level 3.3 gm/dl (3.4-5.0); Alkaline Phosphatase 154 U/L (34-104); Anion Gap 10 (3-11); Bilirubin,Total 0.7 mg/dl (0.2-1.0); Blood Urea Nitrogen 8 mg/dl (6-23); Calcium 8.5 mg/dl (8.6-10.3); Carbon Dioxide 28 mmol/L (21-32); Chloride 105 mmol/L (98-107); Creatinine Clr Calc Pharmacy 117.9 ml/min; Globulin 3.1 gm/dl (2.5-4.0); Glucose 97 mg/dl (70-99(Fasting)); Potassium 3.8 mmol/L (3.5-5.1); Sodium 143 mmol/L (136-145); Total Protein 6.4 gm/dl (6.0-8.3)
[2025-07-31] MEDS: OPTIRAY 320 100ml IV ONE (12:47)
[2025-07-31] MEDS: cefTRIAXone SODIUM 2,000 MG/50 ML BAG IV STA (13:01)
--- NOTE | 2025-07-31 13:09 | CT Scan Report ---
CT tib/fib LT w con CLINICAL HISTORY: wound, swelling fever. Persistent swelling despite being on antibiotics. Evaluate f or abscess/osteomyelitis. COMPARISON STUDY: X-ray study dated 07/31/2025 FINDINGS: Helical images were acquired in a dynamic helical fashion during intravenous administration of 94 cc of Optiray 320. Multiplane are reformatted images were acquired. Within the proximal lower leg abutting the anterior fascial margin of the tibialis anterior as well a s the anterior cortex of the tibia there is a curvilinear fluid collection measuring 7 cm transversel y, 1 cm in AP diameter, and extending over a craniocaudal distance of 8.5 cm. There is an overlying s mall anterior skin defect. There are no gas bubbles within this collection. There is mild overlying s kin edema. No cortical destructive lesions are visualized within the underlying tibia. There are no a cute fractures. IMPRESSION: 1. Anterior subcutaneous fluid collection within the upper aspect of the lower leg measuring 7 x 8.5 x 1 cm. There is overlying cutaneous edema and there is a small overlying cutaneous defect. There are no gas bubbles within this collection. There are no underlying bony destructive changes. Given the h istory of prior trauma this collection is likely posttraumatic. It is not possible to determine wheth er it is infected. ACT 112: Negative or not required by law. Electronically signed by: Matty Austin M.D. 07/31/2025 1:08 PM
[2025-07-31] MEDS ORDERED: VANCOMYCIN CONSULT ACTIVE PRN (16:11)
--- NOTE | 2025-07-31 16:18 | History & Physical Report ---
Date of Service July 31, 2025 Assessment & Plan (1) Leg wound, left: (2) Hematoma of leg: (3) Abnormal LFTs: (4) Vitamin B12 deficiency: (5) Alcohol abuse: (6) Nicotine dependence: (7) Schizoaffective disorder: (8) GERD (gastroesophageal reflux disease): (9) Hyperlipidemia LDL goal <70: (10) Coronary artery disease, occlusive: (11) Lactic acidosis: Plan 55yo female with history of CAD (inferior wall PA 2013 with RCA stent), schizoaffective disorder, GERD, alcohol use, hyperlipidemia, and tobacco abuse who presents from home with persistent & worsening pain over a proximal left velazquez hematoma with wound that developed as a result of [place] about 3 weeks ago in [place]. Was evaluated in our ER early July for this injury. Also found to have left great toe fracture at that time. #left velazquez hematoma with wound - -although patient reports fever several days ago, persistent pain over the hematoma, and has lactic acidosis today the hematoma does not examine infected -the wound present also does not show purulence, but patient states it has been draining yellow-bloody drainage at home -blood cultures were sent in the ER, and a wound cx was taken from the open wound -she was given rocephin IV in the ER to cover the wound and the hematoma -will ask orthopedics to consult for this hematoma and ask them specifically if they feel the hematoma is infected and if it needs I/D -given the recent fever reasonable to continue empiric IV abx - will use vancomycin by itself for now -ask wound care to consult for wound treatment recommendations -TDaP is up-to-date based on primary care records (last TDaP 2019) -for pain - oxycodone 5mg prn and 3 scheduled doses of IV toradol -can apply heat to the hematoma for local pain relief and to hasten its recovery/resolution #left great toe distal phalanx fracture - -check 25-OH vit D level am -monica tape to the 2nd toe -stiff-soled sneaker or post-op shoe advised -ortho recs appreciated #lactic acidosis - -2nd to brewing infection of the hematoma/wound of left velazquez? -dehydration? -other? -s/p copious IV fluids in ER #abnormal LFTs, mild leukopenia, recent fever - -check COVID/flu/RSV -abnormal LFTs, low WBCs could be 2nd to etoh abuse --- but etoh would not explain the reported fever, however -recheck CBC am #CAD - -no ischemic symptoms -is on chronic plavix -in the small event she needs I/D hematoma place plavix on hold for now -the last cardiac event was over 10 years ago so holding plavix temporarily is permissible #h/o B12 def - -in 2023 her level was <175 -recheck B12 with folic acid level am #tobacco abuse - -student support counselor to quit -nicoderm patch #etoh abuse - -unclear how much she is currently drinking at home -AWSS protocol -consider phenobarbital protocol (patient already on gabapentin TID at home at large doses) #hyperlipidemia - -cont statin for now, but if LFTs trend higher then hold lipitor #schizoaffective d/o - -no psychosis at this time -cont trazodone HS, cont sertraline HS, cont latuda daily, cont lamotrigine HS, cont gabapentin TID, cont atarax prn sleep DVT proph - hold off on chemical means in the event she needs I/D of L velazquez hematoma place on observation status for now History of Present Illness Chief Complaint: left velazquez hematoma with wound, fevers Primary Care Provider: Sabiha Hough, 55yo female with history of CAD (inferior wall PA 2013 with RCA stent), schizoaffective disorder, GERD, alcohol use, hyperlipidemia, and tobacco abuse who presents from home with persistent & worsening pain over a proximal left velazquez hematoma with wound that developed as a result of a [place] tracks about 3 weeks ago in [place]. Was seen in our ER following the injury and was discharged to home on keflex. She also fractured the distal left great toe but has not been monica-taping the first/2nd toes or wearing anything beyond her usual sneakers. Despite taking the keflex several weeks ago and icing the area the hematoma has persisted and, if anything, the pain in this region has worsened. She has been placing a dressing on the wound and there has been some purulent/bloody drainage. Hurts to walk on the left leg because of the hematoma. About 3 days ago had fever to 103 degrees along with chills. Some myalgias. No vomiting but some loose stool. No URI symptoms. She is uncertain if she had gotten her TDaP booster earlier in July following her fall. However, records show she had a TDaP in 2019 at a local [facility]. Allergies Allergy/AdvReac Type Severity Reaction Status Date / Time No Known Allergies Allergy Verified 06/18/25 16:07 Home Medications Medication Instructions Recorded Confirmed Type atorvastatin 80 mg tablet (Lipitor) 80 mg PO QPM #90 tabs 12/15/21 07/31/25 Rx clopidogrel 75 mg tablet (Plavix) 75 mg PO QAM #90 tabs 05/20/22 07/31/25 Rx trazodone 100 mg tablet 200 mg PO HS 10/06/23 07/31/25 History paliperidone palm (6 month) 1,560 1,560 mg IM UD 03/26/24 07/31/25 History mg/5 mL intramuscular syringe (Invega Jose Mchrismarcel) Wheeled Walker 05/09/24 06/18/25 History gabapentin 800 mg tablet 800 mg PO TID 05/09/24 07/31/25 History (Neurontin) lamotrigine 100 mg tablet 100 mg PO HS 05/09/24 07/31/25 History naltrexone microspheres 380 mg 380 mg IM MONTHLY 05/09/24 07/31/25 History intramuscular suspension,extended release (Vivitrol) nitroglycerin 0.3 mg sublingual 0.3 mg sublingual Q5M PRN chest 05/09/24 07/31/25 History tablet (Nitrostat) pain sertraline 100 mg tablet 200 mg PO HS 05/09/24 07/31/25 History benztropine 0.5 mg tablet 0.5 mg PO DAILY PRN muscle 05/25/24 07/31/25 Rx stiffness #0 tabs cyclobenzaprine 10 mg tablet 10 mg PO HS #30 tabs 12/27/24 07/31/25 Rx hydroxyzine HCl 50 mg tablet 50 mg PO HS PRN Sleep 07/31/25 07/31/25 History lurasidone 80 mg tablet 80 mg PO DAILY 07/31/25 07/31/25 History naltrexone 50 mg tablet 50 mg PO UD 07/31/25 07/31/25 History Past Med/Surg History Problem List (Updated 08/01/25 @ 04:45 by Duncan Carey MD) Lactic acidosis Abnormal LFTs Hematoma of leg Cellulitis (Acute) Leg wound, left (Acute) Post traumatic stress disorder (PTSD) Acetaminophen toxicity Depression (Acute) Alcohol abuse (Acute) Suicide attempt by acetaminophen overdose (Acute) S/P total left hip arthroplasty Left hip pain Low back pain Vitamin B12 deficiency Spinal stenosis, lumbar region with neurogenic claudication Lumbar radiculopathy Chronic pain Polysubstance (excluding opioids) dependence Abnormal brain MRI (Acute) Nicotine dependence (Acute) Hypertension (Chronic) Prolonged QT interval (Chronic) Schizoaffective disorder (Chronic) Anxiety and depression (Chronic) GERD (gastroesophageal reflux disease) Hyperlipidemia LDL goal <70 (Chronic) TIA (transient ischemic attack) (Chronic) 2016 Alcohol abuse (Chronic) Coronary artery disease, occlusive (Chronic 03/31/14) s/p stents 2016 Medical History IUD contraception (06/2017) reviewed chart - insertion 07/04/2017, Mirena, removed 04/2025 Intentional acetaminophen overdose High serum thyroid stimulating hormone (TSH) Bilateral hip pain Vitamin D deficiency disease Thyroid nodule B12 deficiency 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 of left hip MCC current use of anticoagulant Thyroid nodule had followed with ENT in the past Low back pain Hypertension Hyperlipidemia Hx of gastroesophageal reflux (GERD) well controlled and stable gets occ reflux- no medications at this time Chronic pain Anxiety and depression Depression with suicidal ideation hx Auditory hallucinations chronic history- no hallucinations re: hurting others or self chronic and stable - follows with psych- feels controlled per patient TIA (transient ischemic attack) ~ Most recent 2018, no residual effects Also hx of TIAs 2010, 2011, 2014 per records Schizoaffective disorder, depressive type hx Medical non-compliance hx STEMI (ST elevation myocardial infarction) ~2013, cardiac cath w/2 stents placed, [facility] follows only with PCP Surgical History Hx of cardiac cath ~2015, [facility], x2 stents; does not f/u cardio anymore. H/O heart artery stent ~2015, [facility], x2 stents; does not f/u cardio anymore. Family History Mother Diabetes Father , age 70 of pancreatic cancer. Heart disease Hypertension Diabetes Pancreatic cancer Prostate cancer Grandmother (Maternal) Breast cancer Other Cancer Denies family history of Ovarian cancer Colorectal cancer Social History (Updated 08/01/25 @ 04:26 by Duncan Carey MD) Smoking Status: Current every day smoker Tobacco Type: Cigarettes Cigarettes Per Day: 1/2 pack day; Second Hand Exposure: No; Do You Dip or Chew Tobacco: No; Hx Alcohol Use: Yes Alcohol type: beer Alcohol Intake Frequency Comment: Three 32 ounce cans of Monae Light beer per day Hx Substance Use: Yes Non-Prescribed Medications: Marijuana Last Used Substance: Days (ago) Last Used Substance Other:: 1 week ago Substance Use Type Other:: states " i just got off of street drugs, but rather not say which ones" Preferred Language: Hebrew Communication Ability: Effective Visual Impairment: No Limitations Hearing Ability: Normal Global Position System Technician Required: No Beliefs That Will Affect Care: None marital status: Single Current Living Situation: Alone current occupational status: previously employed current occupation: 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 Feels Safe at Home: Yes Gender Identity: Female Assistive Devices: None Review of Systems Review of Systems: gen - fever to 103 degrees a few days ago along with chills; eating is poor - chronically, eats 1 meal/day; no weight change eyes - no ocular complaints HENT - denies significant URI symptoms CV - no chest pain pulm - no dyspnea GI - no nausea/vomiting, no abd pain - no dysuria musculo - left velazquez pain x 3 weeks neuro - no headache endo - no diabetes skin - wound, left velazquez - getting smaller over time Physical Exam Physical Exam: gen - lying comfortably in bed, NAD eyes - PERRL HENT - MMM, no lesions neck - no JVD, no lymph nodes, no obvious goiter heart - RRR, s1 s2, no murmur lungs - CTA b/l abd - soft NT ND BS+ ext - no peripheral edema, pulses 2+ b/l feet skin - large hematoma present left proximal velazquez, just lateral to the tibia; hematoma is about 3 inches in diameter; nontender to palpation; no overlying cellulitis; medial portion of the hematoma is a wound, about 1.5-2cm in length; I could not express any purulent drainage from the wound, no odor neuro - strength 5/5 x 4 exts, DTRs 2+ b/l psych - a/o x 3, no signs of intoxication or withdrawal from any substance Results & Data Results & Data Vital Signs (Past 12 Hours) Vital Signs Temp Pulse Pulse Resp BP BP Pulse Ox 07/31/25 16:04 90 07/31/25 15:41 88 24 165/106 H 99 07/31/25 13:18 75 18 160/102 H 97 07/31/25 11:55 72 07/31/25 11:28 79 23 157/104 H 95 07/31/25 10:36 36.6 C 89 16 112/78 96 O2 Del Method 07/31/25 16:04 07/31/25 15:41 Room Air 07/31/25 13:18 Room Air 07/31/25 11:55 07/31/25 11:28 Room Air 07/31/25 10:36 Room Air Laboratory Results Laboratory Results - last 24 hr 07/31/25 07/31/25 07/31/25 11:18 11:44 13:05 WBC 4.58 L RBC 4.80 Hgb 14.8 Hct 43.1 MCV 89.8 MCH 30.8 MCHC 34.3 RDW Std Deviation 56.6 H RDW Coeff of Brooke 17.9 H Plt Count 153 MPV 9.6 Immature Gran % (Auto) 0.4 Neut % (Auto) 46.0 Lymph % (Auto) 43.2 [place] % (Auto) 7.4 Eos % (Auto) 1.7 Baso % (Auto) 1.3 Neut # (Auto) 2.10 Lymph # (Auto) 1.98 [place] # (Auto) 0.34 Eos # (Auto) 0.08 Baso # (Auto) 0.06 Immature Gran # (Auto) 0.02 Sodium 143 Potassium 3.8 Chloride 105 Carbon Dioxide 28 Anion Gap 10 BUN 8 Creatinine 0.62 Est Cr Clr Drug Dosing 117.9 eGFR 105.10 BUN/Creatinine Ratio 12.9 Glucose 97 Lactate 3.7 H* 3.5 H* Calcium 8.5 L Total Bilirubin 0.7 AST 169 H ALT 66 H Alkaline Phosphatase 154 H Total Protein 6.4 Albumin 3.3 L Globulin 3.1 Albumin/Globulin Ratio 1.1 Procalcitonin < 0.02 Urine Color Callahan Urine Appearance Clear Urine pH 5.5 Ur Specific [place] 1.025 Urine Protein Negative Urine Glucose (UA) Negative Urine Ketones Trace H Urine Blood Trace H Urine Nitrite Negative Urine Bilirubin Negative Urine Urobilinogen Negative Ur Leukocyte Esterase Trace H Urine WBC (Auto) 0-5 Urine RBC (Auto) 0-2 U Hyaline Cast (Auto) 0-2 U Epithel Cells (Auto) 6-10 H Urine Bacteria (Auto) None Seen Urine Mucus Present A Urine Comment Diagnostic Findings Tibia/Fibula X-Ray 07/31/25 11:11 XR tibia fibula LT 2V CLINICAL HISTORY: wound, swelling COMPARISON: 07/10/2025 FINDINGS: No fractures are visualized. There are no erosive or destructive changes. No gas is visualized within the soft tissues. There is a small soft tissue calcification within the anterior subcutaneous tissues at the mid tibial level. IMPRESSION: 1. No evidence of fracture 2. No conventional radiographic evidence of osteomyelitis. No gas is visualized within the soft tissues. ACT 112: Negative or not required by law. Electronically signed by: Matty Austin M.D. 07/31/2025 12:[address] 07/31/25 12:26 CT tib/fib LT w con CLINICAL HISTORY: wound, swelling fever. Persistent swelling despite being on antibiotics. Evaluate for abscess/osteomyelitis. COMPARISON STUDY: X-ray study dated 07/31/2025 FINDINGS: Helical images were acquired in a dynamic helical fashion during intravenous administration of 94 cc of Optiray 320. Multiplane are reformatted images were acquired. Within the proximal lower leg abutting the anterior fascial margin of the tibialis anterior as well as the anterior cortex of the tibia there is a curvilinear fluid collection measuring 7 cm transversely, 1 cm in AP diameter, and extending over a craniocaudal distance of 8.5 cm. There is an overlying small anterior skin defect. There are no gas bubbles within this collection. There is mild overlying skin edema. No cortical destructive lesions are visualized within the underlying tibia. There are no acute fractures. IMPRESSION: 1. Anterior subcutaneous fluid collection within the upper aspect of the lower leg measuring 7 x 8.5 x 1 cm. There is overlying cutaneous edema and there is a small overlying cutaneous defect. There are no gas bubbles within this collection. There are no underlying bony destructive changes. Given the history of prior trauma this collection is likely posttraumatic. It is not possible to determine whether it is infected. ACT 112: Negative or not required by law. Electronically signed by: Matty Austin M.D. 07/31/2025 1:08 PM Code Status & VTE Plan Code Status dnr/dni PG Care Time/CCT Total # of Minutes Spent Total Time Spent with Patient: Total time spent is greater than 50% in coordination of care (as documented) at patient's floor/unit and/or counseling patient: Coding Level of Care Code 91296 INT INP/OBS CARE 3/75MIN Diagnoses Leg wound, left S81.802A Encounter type: initial encounter Hematoma of leg S80.10XA Abnormal LFTs R79.89 Vitamin B12 deficiency E53.8 Alcohol abuse F10.10 Nicotine dependence F17.200 Schizoaffective disorder, depressive type F25.9 Schizoaffective disorder type: unspecified GERD (gastroesophageal reflux disease) K21.9 Hyperlipidemia LDL goal <70 E78.5 Coronary artery disease, occlusive I25.10 Lactic acidosis E87.20 (1) Leg wound, left Encounter type: initial encounter Qualified Code(s): S81.802A - Unspecified open wound, left lower leg, initial encounter (7) Schizoaffective disorder Schizoaffective disorder type: unspecified Qualified Code(s): F25.9 - Schizoaffective disorder, unspecified
--- NOTE | 2025-07-31 16:44 | Orthopedic Consultation ---
Date of Consultation July 31, 2025 Assessment & Plan (1) Hematoma of leg: (2) Leg wound, left: (3) Alcohol abuse: (4) Nicotine dependence: (5) Polysubstance (excluding opioids) dependence: (6) Chronic pain: (7) Suicide attempt by acetaminophen overdose: (8) Depression: (9) Post traumatic stress disorder (PTSD): (10) Anxiety and depression: (11) TIA (transient ischemic attack): (12) Coronary artery disease, occlusive: Plan This is a 55-year-old female who appears older than stated age who presents to the hospital for evaluation of her left lower extremity. About 2 weeks ago, the patient slipped and fell on railroad tracks in [place] and sustained a superfi cial wound to her left anterior tibia. This was evaluated in the emergency department and the patient was prescribed Keflex. Patient notes that the wound initially improved, however thereafter began to worsen. She states that she never really noticed much in the way of erythema or significant drainage, however the pain seem to increase over the course of the last week or so. On my evaluation today, the patient does not appear floridly ill. Her white blood cell count is 4.58. She does have elevated lactate at 3.5. An ESR and CRP were not drawn so I have added these to her labs. On evaluation of the patient's imaging scans, no acute osseous abnormalities are identified, but the patient does have a subcutaneous fluid collection just anterior to the anterior compartment musculature. No soft tissue gas is noted. My suspicion is that this represents a hematoma. I am not entirely convinced that this hematoma is infected as the patient has no signs of erythema and to palpate the area, is not exquisitely tender to palpation. Additionally, I was unable to express any purulence from the wound. I do believe that it is reasonable to observe this area and perform local wound care. I would recommend a wound care consultation. Patient shows no signs of skin necrosis at this time, however this can develop if the hematoma expands. Would recommend continued close observation of this and consultation to plastic surgery if there is any concerns for skin necrosis. No plans for acute orthopedic intervention at this juncture. continued wound monitoring and monitoring her response to antibiotics certainly reasonable. At this point, this does not appear to represent necrotizing fasciitis. The Larynex score is incomplete as there is no CRP value, however no additional positive findings for the martha score are noted as the patient's white blood cell count is less than 15, her hemoglobin is greater than 13.5, her sodium is greater than 135, her creatinine is less than 1.6 and her glucose is less than 180. During her original fall, the patient did also sustain a minimally displaced fracture of the base of her proximal phalanx of the great toe. Would recommend postoperative shoe and/or monica taping based on the patient's comfort level. No acute plans for orthopedic intervention for that fracture either. History of Present Illness Reason for Consultation: Left leg wound History of Present Illness 55yo female with history of CAD s/p stents in the past, schizoaffective disorder, GERD, alcohol use, hyperlipidemia, and tobacco abuse who presents from home with persistent & worsening pain over a proximal left velazquez hematoma with wound that developed as a result of a fall on railroad tracks about 3 weeks ago in [place]. Was seen in our ER following the injury and was discharged to home on keflex. She also fractured the distal left great toe but has not been monica-taping the first/2nd toes or wearing anything beyond her usual sneakers. Despite taking the keflex several weeks ago and icing the area the hematoma has persisted and, if anything, the pain in this region has worsened. She has been placing a dressing on the wound and there has been some bloody drainage. Hurts to walk on the left leg because of the hematoma. 2 to 3 days ago, the patient notes that she had a fever at home. She notes only scant drainage from the wound. She notes that the wound feels better since being here in the hospital. Allergies Allergy/AdvReac Type Severity Reaction Status Date / Time No Known Allergies Allergy Verified 06/18/25 16:07 Home Medications Medication Instructions Recorded Confirmed Type atorvastatin 80 mg tablet (Lipitor) 80 mg PO QPM #90 tabs 12/15/21 07/31/25 Rx clopidogrel 75 mg tablet (Plavix) 75 mg PO QAM #90 tabs 05/20/22 07/31/25 Rx trazodone 100 mg tablet 200 mg PO HS 10/06/23 07/31/25 History paliperidone palm (6 month) 1,560 1,560 mg IM UD 03/26/24 07/31/25 History mg/5 mL intramuscular syringe (Invega Hafyera) Wheeled Walker 05/09/24 06/18/25 History gabapentin 800 mg tablet 800 mg PO TID 05/09/24 07/31/25 History (Neurontin) lamotrigine 100 mg tablet 100 mg PO HS 05/09/24 07/31/25 History naltrexone microspheres 380 mg 380 mg IM MONTHLY 05/09/24 07/31/25 History intramuscular suspension,extended release (Vivitrol) nitroglycerin 0.3 mg sublingual 0.3 mg sublingual Q5M PRN chest 05/09/24 07/31/25 History tablet (Nitrostat) pain sertraline 100 mg tablet 200 mg PO HS 05/09/24 07/31/25 History benztropine 0.5 mg tablet 0.5 mg PO DAILY PRN muscle 05/25/24 07/31/25 Rx stiffness #0 tabs cyclobenzaprine 10 mg tablet 10 mg PO HS #30 tabs 12/27/24 07/31/25 Rx hydroxyzine HCl 50 mg tablet 50 mg PO HS PRN Sleep 07/31/25 07/31/25 History lurasidone 80 mg tablet 80 mg PO DAILY 07/31/25 07/31/25 History naltrexone 50 mg tablet 50 mg PO UD 07/31/25 07/31/25 History Patient History Medical History IUD contraception (06/2017) reviewed chart - insertion 07/04/2017, Mirena, removed 04/2025 Intentional acetaminophen overdose High serum thyroid stimulating hormone (TSH) Bilateral hip pain Vitamin D deficiency disease Thyroid nodule B12 deficiency 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 of left hip retirement current use of anticoagulant Thyroid nodule had followed with ENT in the past Low back pain Hypertension Hyperlipidemia Hx of gastroesophageal reflux (GERD) well controlled and stable gets occ reflux- no medications at this time Chronic pain Anxiety and depression Depression with suicidal ideation hx Auditory hallucinations chronic history- no hallucinations re: hurting others or self chronic and stable - follows with psych- feels controlled per patient TIA (transient ischemic attack) ~ Most recent 2018, no residual effects Also hx of TIAs 2010, 2011, 2014 per records Schizoaffective disorder, depressive type hx Medical non-compliance hx STEMI (ST elevation myocardial infarction) ~2013, cardiac cath w/2 stents placed, [facility] follows only with PCP Surgical History Hx of cardiac cath ~2016, [facility], x2 stents; does not f/u cardio anymore. H/O heart artery stent ~2016, [facility], x2 stents; does not f/u cardio anymore. Family History Mother Diabetes Father , age 70 of pancreatic cancer. Heart disease Hypertension Diabetes Pancreatic cancer Prostate cancer Grandmother (Maternal) Breast cancer Other Cancer Denies family history of Ovarian cancer Colorectal cancer Social History Smoking Status: Current every day smoker Tobacco Type: Cigarettes Cigarettes Per Day: 10 cigs/day; Second Hand Exposure: No; Do You Dip or Chew Tobacco: No; Hx Alcohol Use: Yes Alcohol type: beer Alcohol Intake Frequency Comment: Three 32 ounce cans of [place] beer per day Hx Substance Use: No Preferred Language: Nigerien Communication Ability: Effective Visual Impairment: No Limitations Hearing Ability: Normal Parts Chaser Required: No Beliefs That Will Affect Care: None Current Living Situation: Significant Other Current Living Situation Comment: will be staying with mom after surgery current occupational status: previously employed current occupation: 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 Feels Safe at Home: Yes Gender Identity: Female Assistive Devices: None, Walker and Wheelchair Review of Systems Review of Systems: All systems reviewed & are unremarkable except as noted in HPI & below Physical Exam Physical Exam: On examination of the patient's left lower extremity, she has a 3 cm laceration over the anteromedial aspect of her proximal tibia. There is no significant erythema. There is healthy granulation tissue in the wound. There is subcutaneous swelling around this. No purulence is able to be expressed from the wound. Results & Data Vital Signs (Past 12 Hours) Vital Signs Temp Pulse Pulse Resp BP BP Pulse Ox 07/31/25 16:04 90 07/31/25 15:41 88 24 165/106 H 99 07/31/25 13:18 75 18 160/102 H 97 07/31/25 11:55 72 07/31/25 11:28 79 23 157/104 H 95 07/31/25 10:36 36.6 C 89 16 112/78 96 O2 Del Method 07/31/25 16:04 07/31/25 15:41 Room Air 07/31/25 13:18 Room Air 07/31/25 11:55 07/31/25 11:28 Room Air 07/31/25 10:36 Room Air Laboratory Results White blood cell count 4.58 Lactate 3.5 Procalcitonin negative Diagnostic Findings X-ray and CT scan of the left hip/fib was personally interpreted and reviewed. Demonstrates no acute osseous abnormalities. On the CT scan, in the subcutaneous tissue that is extrafascial there appears to be a hematoma just anterior to the anterior compartment musculature. (2) Leg wound, left Encounter type: initial encounter Qualified Code(s): S81.802A - Unspecified open wound, left lower leg, initial encounter (7) Suicide attempt by acetaminophen overdose Encounter type: initial encounter Qualified Code(s): T39.1X2A - Poisoning by 4-Aminophenol derivatives, intentional self-harm, initial encounter (8) Depression Depression Type: unspecified Qualified Code(s): F32.A - Depression, unspecified
--- NOTE | 2025-07-31 17:05 | Pharmacy Report ---
Pharmacy PK ABX Note - Date of Service July 31, 2025 - Assessment and Plan Assessment 55 year old F receiving vancomycin + ceftriaxone for treatment of LLE wound infection. Blood and leg cultures pending. Renal function stable. Day #1 of antimicrobial therapy. Plan Vancomycin * Loading dose: 2000 mg IV x 1 * Maintenance dose: 1500 mg IV every 12 hours * Regimen is predicted to achieve target AUC/RHEA of 400-600 mg/L.hr * Trough 10/24 AM Pharmacy will continue to follow and will adjust dose/frequency as necessary. Thank you. Pharmacy has transitioned to AUC monitoring for vancomycin. AUC/RHEA is the preferred PK/PD target and is associated with decreased risk of nephrotoxicity compared to traditional trough targets.
[2025-07-31 17:19] LABS: Influenza A virus by PCR Negative (Neg); Influenza B virus by PCR Negative (Neg); SARS CoV2 RNA(COVID-19) Ceph NEGATIVE (Negative)
[2025-07-31] MEDS: VANCOMYCIN HCL 2,000 MG in SODIUM CHLORIDE 0.9% 500 ML IV ONE (17:27)
[2025-07-31] MEDS ORDERED: ONDANSETRON INJ 2 MG/ML 2 ML VIAL IV PRN (18:41)
[2025-07-31] MEDS ORDERED: BENZTROPINE MESYLATE 0.5 MG TAB PO PRN (18:41)
[2025-07-31] MEDS ORDERED: MELATONIN 3 MG TAB PO PRN (18:41)
[2025-07-31] MEDS ORDERED: NITROGLYCERIN SL 0.4 MG/TAB TAB SL PRN (18:49)
[2025-07-31] MEDS: KETOROLAC 30 MG/ML VIAL IV SCH (19:14)
[2025-07-31] MEDS: NICOTINE 14 MG/24 HR PATCH TD SCH (19:14)
[2025-07-31] MEDS: GABAPENTIN 800 MG TAB PO SCH (20:32)
[2025-07-31] MEDS: lamoTRIgine 100 MG TAB PO SCH (20:33)
[2025-07-31] MEDS: CYCLOBENZAPRINE HCL 10 MG TAB PO SCH (20:33)
[2025-07-31] MEDS: ATORVASTATIN 40 MG TAB PO SCH (20:33)
[2025-07-31] MEDS: SERTRALINE HCL 100 MG TABLET PO SCH (20:34)
[2025-08-01] MEDS: VANCOMYCIN HCL 1,500 MG in SODIUM CHLORIDE 0.9% 500 ML IV SCH (04:01)
[2025-08-01] MEDS ORDERED: LORazepam 1 MG TAB PO PRN (04:51)
[2025-08-01 06:28] LABS: Hematocrit (blood only) 32.2 % (37.0-47.0); Hemoglobin 11.2 g/dl (12.0-16.0); Immature Granulocytes # (auto) 0.02 K/uL (0.01-0.20); Immature Granulocytes % (auto) 0.4 %; Mean Corpuscular Hemoglobin 31.2 pg (25.0-34.0); Mean Corpuscular Volume 89.7 fL (80.0-100.0); Platelet Count 124 K/uL (130-400); RDW Standard Deviation 54.5 fL (36.4-46.3); Red Blood Count 3.59 M/uL (4.20-5.40); White Blood Count 5.48 K/ul (4.8-10.8)
[2025-08-01 06:48] LABS: Alanine Aminotransferase 64.0 U/L (7-52); Albumin Globulin Ratio 1.1 (0.9-2); Albumin Level 2.5 gm/dl (3.4-5.0); Alkaline Phosphatase 129.0 U/L (34-104); Anion Gap 10.0 (3-11); Bilirubin,Total 1.2 mg/dl (0.2-1.0); Blood Urea Nitrogen 5.0 mg/dl (6-23); Calcium 7.3 mg/dl (8.6-10.3); Carbon Dioxide 24.0 mmol/L (21-32); Chloride 104.0 mmol/L (98-107); Creatinine Clr Calc Pharmacy 137.3 ml/min; Globulin 2.3 gm/dl (2.5-4.0); Glucose 97.0 mg/dl (70-99(Fasting)); Magnesium 1.3 mg/dl (1.7-2.4); Potassium 3.3 mmol/L (3.5-5.1); Sodium 138.0 mmol/L (136-145); Total Protein 4.8 gm/dl (6.0-8.3)
[2025-08-01 07:08] LABS: Folate (Folic Acid),Ser orPlas 4.08 ng/ml (>5.38); Vitamin B12 204.0 pg/ml (180-914)
[2025-08-01] MEDS: POTASSIUM CHLORIDE CRTAB 20 MEQ TABCR PO STA (09:58)
[2025-08-01] MEDS: LURASIDONE HCL 20 MG TAB PO SCH (09:58)
[2025-08-01] MEDS: THIAMINE HCL 200 MG in SODIUM CHLORIDE 0.9% 50 ML IV SCH (09:58)
[2025-08-01] MEDS: REMOVE NICODERM PATCH SCH (10:04)
[2025-08-01] MEDS: MULTIVITAMIN TAB PO SCH (10:09)
[2025-08-01] MEDS: MAGNESIUM SULFATE / D5W 1 GM/100 ML BAG IV SCH (10:41)
--- NOTE | 2025-08-01 10:47 | Orthopedic Progress Note ---
Date of Service August 01, 2025 Assessment & Plan (1) Hematoma of leg: (2) Leg wound, left: (3) Alcohol abuse: (4) Nicotine dependence: (5) Polysubstance (excluding opioids) dependence: (6) Chronic pain: (7) Suicide attempt by acetaminophen overdose: (8) Depression: (9) Post traumatic stress disorder (PTSD): (10) Anxiety and depression: (11) TIA (transient ischemic attack): (12) Coronary artery disease, occlusive: Plan Patient seen and evaluated this morning. The patient's wound appears unchanged. There is still no surrounding erythema. Mild tenderness to palpation. I did review her ESR and CRP from last evening. Neither of these are elevated as such my suspicion of an infected hematoma is quite low. Would recommend local wound care to this area and a wound care consultation. No plans for acute orthopedic intervention. Admission and Anticipated Discharge Date Admission Date: July 31, 2025 Subjective Patient seen and evaluated this morning. Notes mild soreness of her leg. Has not yet been seen by wound care. Review of Systems Review of Systems: All systems reviewed & are unremarkable except as noted in HPI & below Physical Exam Physical Exam: On examination of the patient's left lower extremity, she has a 3 cm laceration over the anteromedial aspect of her proximal tibia. There is no significant erythema. There is healthy granulation tissue in the wound. There is subcutaneous swelling around this. No purulence is able to be expressed from the wound. Results & Data Vital Signs (Past 12 Hours) Vital Signs Temp Pulse Pulse Resp BP Pulse Ox O2 Del Method 08/01/25 07:44 36.8 C 83 16 136/82 94 Room Air 08/01/25 05:39 36.6 C 79 18 143/90 H 96 Room Air 08/01/25 00:42 36.9 C 105 H 18 127/83 92 Room Air (2) Leg wound, left Encounter type: initial encounter Qualified Code(s): S81.802A - Unspecified open wound, left lower leg, initial encounter (7) Suicide attempt by acetaminophen overdose Encounter type: initial encounter Qualified Code(s): T39.1X2A - Poisoning by 4-Aminophenol derivatives, intentional self-harm, initial encounter (8) Depression Depression Type: unspecified Qualified Code(s): F32.A - Depression, unspecified
--- NOTE | 2025-08-01 14:11 | Hospitalist Progress Note ---
"Date of Service August 01, 2025 Assessment & Plan (1) Leg wound, left: (2) Hematoma of leg: (3) Electrolyte abnormality: (4) Abnormal LFTs: (5) Vitamin B12 deficiency: (6) Folate deficiency: (7) Alcohol abuse: Plan 55 y/o female with history of CAD (inferior wall PA 2013 with RCA stent), hyperlipidemia, schizoaffective disorder, GERD, alcohol use disorder, and tobacco use disorder. She experienced a fall on railroad tracks about 3 weeks prior to admission. She was evaluated in the ER following this fall/injury and was prescribed a course of Keflex for developing cellulitis of the left leg, and was also noted to have a left great toe fracture. She returned to the ED due to persistent and worsening pain over the proximal left velazquez hematoma with wound that developed as a result of her fall. TDaP is up-to-date based on primary care records (last TDaP 2019). She was admitted for management of such. #Left velazquez hematoma with wound - CT lower extremity notes anterior subcutaneous fluid collection within the upper aspect of the lower leg with overlying cutaneous edema and a small overlying cutaneous defect. No gas bubbles within this collection. No underlying bony destructive changes - Patient reports a fever at home few days prior to admission. Has been afebrile during hospitalization - Hematoma did not appear infected on admission - no purulence, but patient states it has been draining yellow-bloody drainage at home - Wound culture preliminarily growing Staph aureus, sensitivities pending - Blood cultures negative x 24 hours - Ortho consulted - recommending conservative management - Wound care consulted - instructions listed in chart - Continue empiric IV vancomycin while wound culture is pending sensitivities - Continue warm compresses to hematoma as needed for local pain relief and to hasten recovery #Hypomagnesemia | Hypokalemia - Magnesium low at 1.3repleted with 1 g mag IV x 4 - Potassium low at 3.3repleted with KCl 40 mEq p.o. x 1 - Trend with AM labs #Left great toe distal phalanx fracture - Steve tape to the 2nd toe - Stiff-soled sneaker or post-op shoe advised - Vit D level added to AM labs #Abnormal LFTs | Hyperlipidemia - Suspect abnormal LFTs are secondary to alcohol use disorder - Continue statin for now, but if LFTs trend higher then hold Lipitor - Trend CMP with AM labs #Vitamin B12 deficiency | Folate deficiency - B12 borderline low at 204 - start repletion with cyanocobalamin 100 mcg daily - Folate low at 4.08 - start repletion with folic acid 400 mcg daily #Alcohol use disorder - unclear how much she is currently drinking at home - AWSS protocol - Consider phenobarbital protocol if she shows signs of withdrawal (patient already on gabapentin TID at home at large doses) - No signs of alcohol withdrawal thus far #Lactic acidosis - present on admission - Suspect secondary to brewing infection of the hematoma/wound of left velazquez, as well as dehydration - S/p copious IV fluids in ER with improvement in lactate #CAD - Plavix initially held in the event an I&D of her hematoma was required. Ortho does not recommend I&D at this time - Platelets acutely low at 124 on AM labs - monitor platelet level with AM labs 08/02, if stable then Plavix can be resumed at that time - Her last cardiac event was over 10 years ago so holding Plavix temporarily is permissible #Schizoaffective d/o - continue trazodone HS, sertraline HS, Latuda daily, lamotrigine HS, gabapentin TID, Atarax prn sleep #Tobacco use disorder - Use NicoDerm patch while hospitalized - Encourage tobacco cessation DVT proph: SCDs Dispo: Anticipate discharge home tomorrow 08/02 Repleted potassium and magnesium Started cyanocobalamin and folic acid Admission and Anticipated Discharge Date Admission Date: July 31, 2025 Supervising Physician Co-Signing Physician Notes Attending Attestation - Chart reviewed, care plan d/w JI Kong. I agree w/ the charles components of her documentation. Duncan Carey MD Subjective Patient seen and evaluated at bedside. She reports feeling well overall. She denies any significant pain in her left lower extremity from her hematoma. She was seen by the wound care nurse earlier who redressed her hematoma/wound. We discussed her morning lab results and potassium and magnesium repletion. We also discussed her pending wound culture sensitivities, currently growing Staph aureus. She is hopeful for discharge home tomorrow assuming her electrolytes augment appropriately and we have wound culture sensitivities. She denies any additional complaints or concerns at this time. Physical Exam Physical Exam: General: No acute distress, nondiaphoretic, well-developed, well-nourished. Skin: Hematoma on left anterior LE covered in dressing - clean dry intact - just changed by wound care so did not undress. 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 Cardiac: Regular rate and rhythm without murmurs gallops or rubs. Pulm: Clear to auscultation bilaterally without wheezes, rales or rhonchi. Normal respiratory effort. 95% on room air. Abdominal: Soft, nontender, nondistended. Bowel sounds present. Neuro: A&O x3. No focal neurological deficits. Results & Data Results & Data Vital Signs (Past 12 Hours) Vital Signs Temp Pulse Pulse Resp BP Pulse Ox O2 Del Method 08/01/25 07:44 98.2 F 83 16 136/82 94 Room Air 08/01/25 05:39 97.9 F 79 18 143/90 H 96 Room Air Laboratory Results Reviewed CBC with differential Reviewed CMP, chemistries Reviewed wound culture PG Care Time/CCT Total # of Minutes Spent Total Time Spent with Patient: Total time spent is greater than 50% in coordination of care (as documented) at patient's floor/unit and/or counseling patient: Coding Level of Care Code 30154 SUB INP/OBS CARE 3/50MIN Diagnoses Leg wound, left S81.802A Encounter type: initial encounter Hematoma of leg S80.10XA Electrolyte abnormality E87.8 Abnormal LFTs R79.89 Vitamin B12 deficiency E53.8 Folate deficiency E53.8 Alcohol abuse F10.10 (1) Leg wound, left Encounter type: initial encounter Qualified Code(s): S81.802A - Unspecified open wound, left lower leg, initial encounter"
[2025-08-01] MEDS: INFLUENZA VACC TS2025-26(6m+)/PF (IIV3) 0.5mL Syr IM ONE (18:12)
[2025-08-02 00:09] VITALS: RESP 18; TEMP 98.1
[2025-08-02 03:13] LABS: Hematocrit (blood only) 30.5 % (37.0-47.0); Hemoglobin 11.0 g/dl (12.0-16.0); Mean Corpuscular Hemoglobin 32.6 pg (25.0-34.0); Mean Corpuscular Volume 90.5 fL (80.0-100.0); Platelet Count 104 K/uL (130-400); RDW Standard Deviation 51.8 fL (36.4-46.3); Red Blood Count 3.37 M/uL (4.20-5.40); White Blood Count 5.20 K/ul (4.8-10.8)
[2025-08-02 03:28] LABS: Alanine Aminotransferase 54.0 U/L (7-52); Albumin Globulin Ratio 1.2 (0.9-2); Albumin Level 2.8 gm/dl (3.4-5.0); Alkaline Phosphatase 126.0 U/L (34-104); Anion Gap 4.0 (3-11); Bilirubin,Total 1.5 mg/dl (0.2-1.0); Blood Urea Nitrogen 4.0 mg/dl (6-23); Calcium 7.8 mg/dl (8.6-10.3); Carbon Dioxide 26.0 mmol/L (21-32); Chloride 107.0 mmol/L (98-107); Creatinine Clr Calc Pharmacy 151.3 ml/min; Globulin 2.3 gm/dl (2.5-4.0); Glucose 103.0 mg/dl (70-99(Fasting)); Magnesium 2.2 mg/dl (1.7-2.4); Potassium 3.1 mmol/L (3.5-5.1); Sodium 137.0 mmol/L (136-145); Total Protein 5.1 gm/dl (6.0-8.3)
[2025-08-02] MEDS: VANCOMYCIN LEVEL ONE (04:08)
[2025-08-02 07:22] VITALS: BP 116/76; PULSE 74; O2SAT 97
[2025-08-02] MEDS: POTASSIUM CHLORIDE CRTAB 20 MEQ TABCR PO STA (09:56)
[2025-08-02] MEDS: CHOLECALCIFEROL 25 MCG (1000 UNITS) TAB PO SCH (09:57)
[2025-08-02] MEDS: CYANOCOBALAMIN (B-12) 100 MCG TABLET PO SCH (09:59)
[2025-08-02] MEDS: FOLIC ACID 400 MCG TAB PO SCH (09:59)
--- NOTE | 2025-08-02 11:30 | Discharge Summary ---
"Discharge Summary Date of Service August 02, 2025 Principal Dx & Hospital Course #1 = Principal Diagnosis (1) Leg wound, left: (2) Hematoma of leg: (3) Electrolyte abnormality: (4) Abnormal LFTs: (5) Vitamin B12 deficiency: (6) Folate deficiency: (7) Alcohol abuse: Plan 55 y/o female with history of CAD (inferior wall VT 2013 with RCA stent), hyperlipidemia, schizoaffective disorder, GERD, alcohol use disorder, and tobac co use disorder. She [place] tracks about 3 weeks prior to admission. She was evaluated in the ER following this fall/injury and was prescribed a course of Keflex for developing cellulitis of the left leg, and was also noted to have a left great toe fracture. She returned to the ED due to persistent and worsening pain over the proximal left velazquez hematoma with wound that developed as a result of her fall. TDaP is up-to-date based on primary care records (last TDaP 2019). She was admitted for management of such. #Left velazquez hematoma with wound - CT lower extremity notes anterior subcutaneous fluid collection within the upper aspect of the lower leg with overlying cutaneous edema and a small overlying cutaneous defect. No gas bubbles within this collection. No underlying bony destructive changes - Patient reports a fever at home few days prior to admission. Afebrile during hospitalization - Hematoma did not appear infected on admission - no purulence, but patient states it has been draining yellow-bloody drainage at home - Ortho consulted - recommending conservative management - Wound culture grew MSSA. Blood cultures negative > 24 hours - Wound care consulted - instructions listed in chart. Follow-up with wound care center outpatient as indicated - Treated with IV Vancomycin while hospitalized as wound cultures sensitivities were pending. Discharged on Keflex 500 mg QID through 08/06 to complete 7 day total antibiotic course - Continue warm compresses to hematoma as needed for local pain relief and to hasten recovery #Hypomagnesemia | Hypokalemia - Magnesium low at 1.3repleted with 1 g mag IV x 4, augmented appropriately, now WNL at 2.2 - Potassium low at 3.3repleted but remained low - repleted with additional 40 mEq PO x 1 prior to discharge #Left great toe distal phalanx fracture - Monica tape to the 2nd toe - Stiff-soled sneaker or post-op shoe advised - Vit D low at 26.6 - started supplementation with Vit D3 25 mcg daily #Abnormal LFTs | Hyperlipidemia - Suspect abnormal LFTs are secondary to alcohol use disorder - Continue statin for now, but if LFTs trend higher then hold Lipitor #Vitamin B12 deficiency | Folate deficiency - B12 borderline low at 204 - start supplementation with cyanocobalamin 100 mcg daily - Folate low at 4.08 - start supplementation with folic acid 400 mcg daily #Alcohol use disorder - unclear how much she is currently drinking at home - AWSS protocol - Consider phenobarbital protocol if she shows signs of withdrawal (patient already on gabapentin TID at home at large doses) - No signs of alcohol withdrawal during hospitalization #Lactic acidosis - present on admission - Suspect secondary to brewing infection of the hematoma/wound of left velazquez, as well as dehydration - S/p copious IV fluids in ER with improvement in lactate #CAD - Plavix initially held in the event an I&D of her hematoma was required. Ortho does not recommend I&D at this time - Continue Plavix #Schizoaffective d/o - continue trazodone HS, sertraline HS, Latuda daily, lamotrigine HS, gabapentin TID, Atarax prn sleep #Tobacco use disorder - Use NicoDerm patch while hospitalized - Encourage tobacco cessation DVT proph: SCDs, Plavix Dispo: Discharged home 08/02 Notes For Next Care Provider Monitor platelets and LFTs Follow-up with wound care center outpatient as indicated Medication Changes From Visit Keflex 500 mg QID through 08/06 Started Vit D, Vit B12, folic acid supplements Admission HPI Per Admitting Provider 55yo female with history of 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 Was seen in our ER following the injury and was discharged to home on keflex. She also fractured the distal left great toe but has not been monica-taping the first/2nd toes or wearing anything beyond her usual sneakers. Despite taking the keflex several weeks ago and icing the area the hematoma has persisted and, if anything, the pain in this region has worsened. She has been placing a dressing on the wound and there has been some purulent/bloody drainage. Hurts to walk on the left leg because of the hematoma. About 3 days ago had fever to 103 degrees along with chills. Some myalgias. No vomiting but some loose stool. No URI symptoms. She is uncertain if she had gotten her TDaP booster earlier in July following her fall. However, records show she had a TDaP in 2019 at a local [facility]. Discharge Exam General: No acute distress, nondiaphoretic, well-developed, well-nourished. Skin: Hematoma on left anterior LE covered in dressing - clean dry intact. academic coordinator attached photos in chart on 08/01. Cardiac: Regular rate and rhythm without murmurs gallops or rubs. Pulm: Clear to auscultation bilaterally without wheezes, rales or rhonchi. Normal respiratory effort. 97% on room air. Abdominal: Soft, nontender, nondistended. Bowel sounds present. Neuro: A&O x3. No focal neurological deficits. Discharge Plan Discharge Items Patient Disposition: Home - Self-Care Reason For Visit: LEFT VELAZQUEZ HEMATOMA WITH WOUND Discharge Diagnosis: Left velazquez hematoma with wound Condition on Discharge: Good Activity: Resume your previous activity Non-emergency contact: Primary Care Provider Call non-emergency contact if: you have any medication questions, your symptoms worsen, your pain is not controlled and you have a fever Follow-up/Referrals: Sabiha Hough DO [Primary Care Provider] - 08/15/25 10:00 am (Follow-up in 1-2 weeks) Diet: Regular Addtl Attending Provider Instructions: Jeovanny Mcneil were admitted to the hospital due to concern of an infection of your left velazquez hematoma/wound. You were evaluated by the orthopedic surgery team who did not feel this required any surgical intervention. Your wound culture has grown a bacteria called Staph aureus. You were treated with IV antibiotics while hospitalized and will continue on oral antibiotics to complete your course on discharge. Additional lab studies reveal that you are deficient in vitamin B12, folate, and vitamin D, so you are started on supplementation for these deficiencies. Upon discharge from the hospital: * Take Keflex (oral antibiotic) 4 times daily through 08/06. This is to treat the infection of your left velazquez hematoma/wound. Side effects of oral antibiotics include GI upset. I recommend taking your antibiotic with food to prevent any associated nausea/vomiting/diarrhea. You could also take an rhie-ytx-nikqcpt probiotic or eat a cup of yogurt daily to prevent the side effects. * Follow the instructions from the wound care nurse regarding your wound care for your hematoma. * You can use a warm compress to your hematoma as needed for local pain relief and to hasten recovery. * Take vitamin B12 100 mcg daily. * Take folic acid 400 mcg daily. * Take vitamin D 25 mcg daily. * I recommend taking a multivitamin daily. These are available [id number]-[id number] so no prescription is needed. * Continue monica taping your left big toe to your second toe to aid healing of your left big toe fracture. I also recommend wearing a stiff soled sneaker. * Continue your usual home medications as prescribed. * Follow-up with your PCP in 1-2 weeks. Please return to the hospital if you experience any of the following: Fever of 101 F or higher, worsening redness/pain/discharge from your wound, inability to tolerate oral intake, chest pain, difficulty breathing, passing out, confusion, or any other symptoms concerning for you. It was a pleasure taking care of you while you were in the hospital! Pending Studies at Discharge: Yes Studies:: Finalized blood cultures. Blood cultures negative >24 hours Stand-Alone Forms: [facility], Smoking Cessation Medications and DC Order Prescriptions: New cyanocobalamin (vitamin B-12) [Vitamin B-12] 100 mcg Tablet 100 mcg PO QAM Qty: 30 0RF folic acid 400 mcg Tablet 400 mcg PO QAM Qty: 30 0RF cephalexin 500 mg Capsule 500 mg PO QID Qty: 19 0RF cholecalciferol (vitamin D3) 25 mcg (1,000 unit) Capsule 25 mcg PO QAM Qty: 30 0RF Continued clopidogrel [Plavix] 75 mg tablet 75 mg PO QAM Qty: 90 1RF trazodone 100 mg tablet 200 mg PO HS atorvastatin [Lipitor] 80 mg tablet 80 mg PO QPM Qty: 90 1RF cyclobenzaprine 10 mg tablet 10 mg PO HS Qty: 30 5RF naltrexone 50 mg tablet 50 mg PO UD Patient Comments: per pt, she's out of medication hydroxyzine HCl 50 mg tablet 50 mg PO HS PRN (Reason: Sleep) lurasidone 80 mg tablet 80 mg PO DAILY Invega Hafyera 1,560 mg/5 mL syringe 1,560 mg IM UD Rx Instructions: every 6 months sertraline 100 mg tablet 200 mg PO HS gabapentin [Neurontin] 800 mg tablet 800 mg PO TID Vivitrol 380 mg suspension,extended rel recon 380 mg IM MONTHLY lamotrigine 100 mg tablet 100 mg PO HS nitroglycerin [Nitrostat] 0.3 mg tablet, sublingual 0.3 mg sublingual Q5M PRN (Reason: chest pain) Rx Instructions: do not exceed 3 doses per episode (DME) Wheeled Walker Misc See Rx Instructions .MEDSUPPLY Rx Instructions: As directed benztropine 0.5 mg tablet 0.5 mg PO DAILY PRN (Reason: muscle stiffness) Qty: 0 0RF Discharge Orders: Discharge Order (Routine); Ordered 08/02/25 Ordered By: Nely Lane/Other Patient Handouts: Cephalexin Oral Capsule, ED Hematoma Admission Data Admit Date/Time: 07/31/25 16:10 Attending Provider: Duncan Carey Admit Provider: Duncan Carey Primary Care Provider: Sabiha Hough Other Providers: Keaton Bowman Other Interventions: Discharge Summary Assessment (RN) Last Done: 08/02/25 11:39 Hospital Stay Data Consultations 07/31/25 15:12 ED Decision to Admit Stat 07/31/25 16:10 Consult Orthopedic Surgery Routine Diagnostic Imagining Performed Tibia/Fibula X-Ray 07/31/25 11:11 XR tibia fibula LT 2V CLINICAL HISTORY: wound, swelling COMPARISON: 07/10/2025 FINDINGS: No fractures are visualized. There are no erosive or destructive changes. No gas is visualized within the soft tissues. There is a small soft tissue calcification within the anterior subcutaneous tissues at the mid tibial level. IMPRESSION: 1. No evidence of fracture 2. No conventional radiographic evidence of osteomyelitis. No gas is visualized within the soft tissues. ACT 112: Negative or not required by law. Electronically signed by: Matty Austin M.D. 07/31/2025 12:[address] 07/31/25 12:26 CT tib/fib LT w con CLINICAL HISTORY: wound, swelling fever. Persistent swelling despite being on antibiotics. Evaluate for abscess/osteomyelitis. COMPARISON STUDY: X-ray study dated 07/31/2025 FINDINGS: Helical images were acquired in a dynamic helical fashion during intravenous administration of 94 cc of Optiray 320. Multiplane are reformatted images were acquired. Within the proximal lower leg abutting the anterior fascial margin of the tibialis anterior as well as the anterior cortex of the tibia there is a curvilinear fluid collection measuring 7 cm transversely, 1 cm in AP diameter, and extending over a craniocaudal distance of 8.5 cm. There is an overlying small anterior skin defect. There are no gas bubbles within this collection. There is mild overlying skin edema. No cortical destructive lesions are visualized within the underlying tibia. There are no acute fractures. IMPRESSION: 1. Anterior subcutaneous fluid collection within the upper aspect of the lower leg measuring 7 x 8.5 x 1 cm. There is overlying cutaneous edema and there is a small overlying cutaneous defect. There are no gas bubbles within this collection. There are no underlying bony destructive changes. Given the history of prior trauma this collection is likely posttraumatic. It is not possible to determine whether it is infected. ACT 112: Negative or not required by law. Electronically signed by: Matty Austin M.D. 07/31/2025 1:08 PM Pending Results Patient Have Any Pending Studies at Discharge: Yes Discharge Instructions Given to Patient (Per Discharging Provider) [place], You were admitted to the hospital due to concern of an infection of your left velazquez hematoma/wound. You were evaluated by the orthopedic surgery team who did not feel this required any surgical intervention. Your wound culture has grown a bacteria called Staph aureus. You were treated with IV antibiotics while hospitalized and will continue on oral antibiotics to complete your course on discharge. Additional lab studies reveal that you are deficient in vitamin B12, folate, and vitamin D, so you are started on supplementation for these deficiencies. Upon discharge from the hospital: * Take Keflex (oral antibiotic) 4 times daily through 08/06. This is to treat t he infection of your left velazquez hematoma/wound. Side effects of oral antibiotics include GI upset. I recommend taking your antibiotic with food to prevent any associated nausea/vomiting/diarrhea. You could also take an qolc-gfb-emcqped probiotic or eat a cup of yogurt daily to prevent the side effects. * Follow the instructions from the wound care nurse regarding your wound care for your hematoma. * You can use a warm compress to your hematoma as needed for local pain relief and to hasten recovery. * Take vitamin B12 100 mcg daily. * Take folic acid 400 mcg daily. * Take vitamin D 25 mcg daily. * I recommend taking a multivitamin daily. These are available [id number]-[id number] so no prescription is needed. * Continue monica taping your left big toe to your second toe to aid healing of your left big toe fracture. I also recommend wearing a stiff soled sneaker. * Continue your usual home medications as prescribed. * Follow-up with your PCP in 1-2 weeks. Please return to the hospital if you experience any of the following: Fever of 101 F or higher, worsening redness/pain/discharge from your wound, inability to tolerate oral intake, chest pain, difficulty breathing, passing out, confusion, or any other symptoms concerning for you. It was a pleasure taking care of you while you were in the hospital! Supervising Physician Co-Signing Physician Notes Attending Attestation and Discharge Note: Chart reviewed, discharge care plan d/w JI Kong. I agree w/ the charles components of her discharge documentation. Of note - I did not perform a bedside visit or exam on day of discharge. 55yo female with history of CAD (inferior wall [place] 2013 with RCA stent), schizo affective disorder, GERD, alcohol use, hyperlipidemia, and tobacco abuse who presents from home with persistent & worsening pain over a proximal left velazquez hematoma with wound that developed as a result of [place] tracks about 3 weeks ago in [place]. Was evaluated in our ER early July for this injury. Also found to have left great toe fracture at that time. She presented due to persistent/worsening pain over the left velazquez hematoma. Additionally she has a wound in the middle of the proximal velazquez - near the hematoma - that has been draining purulence per her report. She had fever several days prior to admission. Wound cx was taken from the wound - this grew MSSA. She received IV antibiotics while here. Orthopedics saw her for the hematoma - they did not feel it was o vertly infected and thus did not advise I/D of such. As for the left great toe fracture - surgical intervention not advised. Continue monica taping & a stiff soled shoe or sneaker to promote healing. Patient had multiple nutritional deficiencies including B12, folate, and vitamin D. Supplementation of each advised. At discharge she will complete a course of keflex for the MSSA and continue local wound care for the wound. The wound care team advised Aquacel Ag, Optifoam, and to change every other day. Wound care clinic follow-up also recommended to ensure improvement. Duncan Carey MD Total Time Total Time Spent Total Time Spent (In Minutes): Greater than 30 minutes spent completing this discharge process including direct patient care, medication reconciliation, documentation, review of labs and images, and coordination of care. Coding Level of Care Code 64212 INP/OBS DISCH >30 MIN Diagnoses Leg wound, left S81.802A Encounter type: initial encounter Hematoma of leg S80.10XA Electrolyte abnormality E87.8 Abnormal LFTs R79.89 Vitamin B12 deficiency E53.8 Folate deficiency E53.8 Alcohol abuse F10.10"
== END 2025-08-02 12:20 | disposition home or self-care (01) | DRG 605 ==
LOC: ED 10:01 → EDINP 10:01 → 3E 18:42
DX: R94.5 Abnormal results of liver function studies; S92.422A Displaced fracture of distal phalanx of left great toe, initial encounter for closed fracture; B95.61 Methicillin susceptible Staphylococcus aureus infection as the cause of diseases classified elsewhere; Z79.01 Long term (current) use of anticoagulants; I25.10 Atherosclerotic heart disease of native coronary artery without angina pectoris; F17.210 Nicotine dependence, cigarettes, uncomplicated; K21.9 Gastro-esophageal reflux disease without esophagitis; S80.12XA Contusion of left lower leg, initial encounter; E87.6 Hypokalemia; W18.09XA Striking against other object with subsequent fall, initial encounter; E87.20 Acidosis, unspecified; Z86.73 Personal history of transient ischemic attack (TIA), and cerebral infarction without residual deficits; Y92.85 Railroad track as the place of occurrence of the external cause; I25.2 Old myocardial infarction; Z79.899 Other long term (current) drug therapy; F10.10 Alcohol abuse, uncomplicated; Z95.5 Presence of coronary angioplasty implant and graft; I10 Essential (primary) hypertension; F19.20 Other psychoactive substance dependence, uncomplicated; F43.10 Post-traumatic stress disorder, unspecified; E83.42 Hypomagnesemia; E53.8 Deficiency of other specified B group vitamins; F32.A Depression, unspecified; Z79.02 Long term (current) use of antithrombotics/antiplatelets; Z83.3 Family history of diabetes mellitus; E78.5 Hyperlipidemia, unspecified